=== PATIENT | female | born 1995 | race African-American/Black ===

== ENCOUNTER 2020-05-24 10:48 | Emergency (ER) | payer OTHER, SELFPAY ==
--- NOTE | 2020-05-24 11:01 | ED.URI ---
HPI - URI/Sore Throat General Chief Complaint: Upper Respiratory Infection Stated Complaint: Ear sore throat Time Seen by Provider: 05/24/20 11:01 Source: patient and RN notes reviewed History of Present Illness HPI Narrative: Patient is a 25-year-old female who presents the urgent care with complaints of sore throat and ear pain. Patient states the ear pain started last week, resolved, and then returned a few days ago, worse on the right side. Patient states that the sore throat is mainly on the right side and she noticed white spots . Patient states that she was originally taking Mucinex for a post Covid cough. Patient states that she had Covid and was off of quarantine on the . Patient states that she does have a history of asthma but most of her symptoms were fairly mild. Patient currently denies of any known fever, chills, nausea, vomiting. States that she has had mild postnasal drip. No other acute complaints. No acute distress noted. Patient aware of the plan of care. Some parts of this dictation were generated by voice recognition software and may contain typographical and/or grammatical inaccuracies. Related Data Home Medications Medication Instructions Recorded Confirmed hydroxyzine HCl PO TID PRN 05/24/20 Allergies Allergy/AdvReac Type Severity Reaction Status Date / Time Mena Allergy Unknown Unknown Uncoded 05/24/20 11:12 Review of Systems Review of Systems: Narrative: CONSTITUTIONAL: Denies fever, chills, or sweats. EYES: Denies visual changes, redness, or discharge. ENT: Reports of bilateral otalgia and sore throat, postnasal drainage CARDIOVASCULAR: Denies chest pain, palpitations, or edema. RESPIRATORY: Denies cough or dyspnea. GASTROINTESTINAL: Denies abdominal pain, nausea, vomiting, or diarrhea. GENITOURINARY: Denies dysuria or hematuria. SKIN: Denies rash or itching. MUSCULOSKELETAL: Denies back pain, joint pain, or myalgia. NEUROLOGIC: Denies headache, numbness, or weakness. All other systems reviewed are negative, except as documented in HPI. [facility] Social History Social History Smoking packs per day: 1.5 Smoking cigarettes per day: 30.0 Comments At the time of my signature, I reviewed and agree with the nursing past medical, surgical, social, and family history. There is no relevant family history pertinent to the patient complaint. Exam Narrative: Exam Narrative: GENERAL: This is a well-nourished, well-developed patient, in no apparent distress. HEAD: normocephalic, atraumatic. EYES: PERRL. Sclera clear/white. Vision is grossly intact. EARS: External ears normal, auditory canals clear and without drainage, TMs normal without perforation. Hearing grossly intact. NOSE: External nose normal with no obvious nasal discharge, nares without redness, no rhinorrhea. THROAT: Mucous membranes moist, mild erythema noted to posterior oropharynx with pinpoint canker sore noted to the uvula. No obvious exudate. Mild postnasal drainage. NECK: Neck supple, mild tender bilateral submandibular lymphadenopathy CARDIOVASCULAR: Regular rate and rhythm without murmurs, gallops, or rubs. RESPIRATORY: Clear to auscultation. Breath sounds equal bilaterally. No wheezes, rales, or rhonchi. SKIN: warm, intact with no suspicious lesions or rash, good texture and turgor. NEURO: awake, alert, and oriented to person, place and time. There were no obvious focal neurologic abnormalities. EXTREMITIES: No clubbing, cyanosis, or edema. Course Vital Signs Vital signs: Vital Signs Temperature 99.9 F H 05/24/20 11:04 Pulse Rate 95 05/24/20 11:04 Respiratory Rate 18 05/24/20 11:04 Blood Pressure 129/72 05/24/20 11:04 Pulse Oximetry 100 05/24/20 11:04 Temperature 99.9 F H 05/24/20 11:04 Pulse Rate 95 05/24/20 11:04 Respiratory Rate 18 05/24/20 11:04 Blood Pressure 129/72 05/24/20 11:04 Pulse Oximetry 100 05/24/20 11:04 Re
[2020-05-24 11:04] VITALS: BP 129/72; PULSE 95; RESP 18; TEMP 37.7; O2SAT 100
[2020-05-24 11:14] VITALS: BP 129/72; PULSE 95; RESP 18; TEMP 37.7; O2SAT 100
== END 2020-05-24 11:26 | disposition home or self-care (01) ==
PROVIDERS: Emergency Provider Nurse Practitioner Family; PCP Nurse Practitioner Family
DX: J02.9 Acute pharyngitis, unspecified (principal); H92.03 Otalgia, bilateral; E28.2 Polycystic ovarian syndrome
CPT/HCPCS: 87081; 87880; 99213; G0463

== ENCOUNTER 2022-01-13 21:49 | Emergency (ER) | payer OTHER, SELFPAY ==
--- NOTE | ~2022-01-13 | XR_ITS ---
EXAMINATION: XR chest 1V portable DATE: 01/14/2022 02:25 INDICATION: Midsternal chest pain. TECHNIQUE: A single frontal view of the chest was obtained. COMPARISON: None. FINDINGS: The lung volumes are small. No pneumonia, pleural effusion, pneumothorax. The heart size is normal. Calcified right hilar and mediastinal lymph nodes are consistent with old granulomatous dise ase. IMPRESSION: 1. No acute cardiopulmonary disease. Reviewed, dictated and finalized at location A.
[2022-01-13 22:33] VITALS: BP 139/85; PULSE 93; RESP 18; TEMP 36.8; O2SAT 100
[2022-01-13 22:37] LABS: Glucose Point of Care > 500 mg/dl (65-105)
[2022-01-13 22:48] LABS: Fractional Inspired Oxygen 21 %; PO2 VBG 40.4 mmHg (35.0-45.0); pH VBG 7.388 (7.300-7.400)
[2022-01-13 22:49] LABS: Device ROOM AIR
[2022-01-13 23:03] LABS: Basophils Absolute Auto 0.1 K/mm3 (0.0-0.1); Basophils Percent Auto 0.5 % (0.2-1.2); Eosinophils Absolute Auto 0.8 K/mm3 (0-0.3); Eosinophils Percent Auto 7.1 % (0-4.4); Hematocrit 41.4 % (37.0-47.0); Hemoglobin 14.5 g/dL (12.0-15.0); Immature Granulocyte Absolute 0.02 K/mm3 (0.00-0.031); Immature Granulocyte Percent A 0.2 % (0-0.5); Lymphocytes Absolute Auto 3.91 K/mm3 (0.9-3.2); Lymphocytes Percent Auto 35.8 % (18.3-44.2); Mean Corpuscular Volume 88.7 fl (80-100); Mean Platelet Volume 12.9 fl (7.4-10.4); Monocytes Absolute Auto 0.5 K/mm3 (0.1-0.6); Monocytes Percent Auto 4.8 % (2.6-8.5); Neutrophils Absolute Auto 5.6 K/mm3 (1.3-6.7); Neutrophils Percent Auto 51.6 % (45.5-73.1); Platelet Count Result 205 k/mm3 (150-375); Red Blood Count 4.67 M/mm3 (4.2-5.4); Red Cell Distribution Width 11.7 % (11.5-14.5); White Blood Count 10.9 K/mm3 (4.5-10.0)
[2022-01-13 23:16] LABS: Appearance Urine Clear (Clear); Bilirubin Urine Negative (Negative); Blood Urine Negative (Negative); Glucose Urine UA 3+ mg/dL (Negative); Ketones Urine Negative (Negative); Leukocyte Esterase Ur Negative LEU/UL (Negative); Nitrate Urine Negative (Negative); Protein Urine Negative (Negative); Specific Grav Ur <= 1.005 (1.001-1.035); Urobilinogen Urine 0.2 mg/dL (<2.0)
[2022-01-13 23:20] LABS: Beta-Hydroxybutyrate/Acetoacetate 0.11 mmol/L (0.02-0.27)
[2022-01-13 23:22] LABS: Add Urine Microscopic? YES; Color Urine Light Yellow (Yellow)
[2022-01-13 23:23] LABS: Alanine Aminotransferase 124 U/L (6-35); Albumin Level 4.8 g/dL (3.5-5.1); Alkaline Phosphatase 157 U/L (38-126); Anion Gap 16 mmol/L (8-16); Aspartate Amino Transferase 94 U/L (14-36); Bilirubin,Total 0.5 mg/dL (0.2-1.3); Blood Urea Nitrogen 10 mg/dL (7-17); Carbon Dioxide 24 mmol/L (22-30); Chloride 89 mmol/L (98-107); Estimated CRCL calculation 92 ml/min; Estimated Glomerular Filt Rate > 60; Glucose 768 mg/dL (65-110); Magnesium 2.1 mg/dL (1.6-2.3); Sodium 129 mmol/L (137-145)
[2022-01-13 23:28] LABS: Bacteria Urine Trace /hpf; Mucus Urine Rare /lpf; Squamous Epithelial Cell Urine Few /hpf (Few); WBC Urine 0-3 /hpf
[2022-01-14 00:33] VITALS: BP 137/96; PULSE 84; RESP 20; O2SAT 99
[2022-01-14 00:34] VITALS: BP 137/96; PULSE 85; RESP 15; O2SAT 98
[2022-01-14] MEDS: SODIUM CHLORIDE 0.9% IV 2,000 ML 2000 ML IV CONT (00:45)
--- NOTE | 2022-01-14 02:03 | ECG_ITS ---
Measurements Intervals [place] Rate: 66 P: 34 AR: 213 QRS: 9 QRSD: 95 T: 26 QT: 415 QTc: 438 Interpretive Statements SINUS RHYTHM WITH FIRST DEGREE AV BLOCK DELAYED PRECORDIAL R/S TRANSITION CONSIDER INFERIOR INFARCT, AGE INDETERMINATE ABNORMAL ECG NO PREVIOUS ECG AVAILABLE FOR COMPARISON Electronically Signed On 01-14-2022 6:51:10 CDT by Oj Brock D.O.
[2022-01-14 03:07] LABS: SARS-CoV-2 RNA PCR Negative
[2022-01-14 03:22] LABS: Glucose Point of Care 390 mg/dl (65-105)
[2022-01-14] MEDS: IBUPROFEN 400 MG TABLET 800 MG PO (03:22)
[2022-01-14] MEDS: ACETAMINOPHEN 500 MG TABLET 1000 MG PO (03:22)
--- NOTE | 2022-01-14 03:39 | ED.GENADULT ---
HPI - General Adult General Chief complaint: Recheck/Abnormal Lab/Rx Stated complaint: sugar >600 Time Seen by Provider: 01/14/22 00:36 History of Present Illness HPI narrative: This is a 26-year-old female with a history of type 2 diabetes presenting to the ED for elevated blood sugars. The patient says that she woke up this morning with headache, fatigue, muscle aches and generally feeling unwell. She slept for most of the day. She did check her sugar at night and it was elevated and she was concerned that was why she was feeling unwell so came to the emergency department for evaluation. The patient denies nausea vomiting or abdominal pain. She has never been in a diabetic emergency before. She does note that she has been urinating more than usual. The patient was diagnosed with diabetes 1 year ago. Her blood sugars have been relatively well controlled. She did have a recent change to her medication regimen and which is currently metformin 1000 mg b.i.d., Jardiance q.d. and 15 mg of long-acting insulin at night. Related Data Home Medications Medication Instructions Recorded Confirmed hydroxyzine HCl 25 mg tablet PO TID PRN Anxiety 05/24/20 Allergies Allergy/AdvReac Type Severity Reaction Status Date / Time Mena Allergy Unknown Unknown Uncoded 05/24/20 11:12 Review of Systems Review of Systems: CONSTITUTIONAL: Denies night sweats. EYES: No eye pain ENT: Denies rhinorrhea CARDIOVASCULAR: Denies palpitations RESPIRATORY: Denies hemoptysis GASTROINTESTINAL: Denies hematemesis GENITOURINARY: Denies hematuria. SKIN: Denies rash MUSCULOSKELETAL: Denies myalgia. NEUROLOGIC: Denies weakness. PSYCHIATRIC: Denies delusions [facility] Past Medical History Medical History Diabetes Social History Social History Smoking packs per day: 1.5 Smoking cigarettes per day: 30.0 Exam Narrative: APPEARANCE: No apparent distress. Patient is polite and pleasant during the interview Head atraumatic. EYES: PERRLA/EOMI, NOSE: Normal no drainage NECK: Supple, Trachea midline RESPIRATORY: CTAB, No increased work of breathing. CARDIOVASCULAR: S1S2 appreciated ABDOMINAL: Soft, nontender, nondistended, MUSCULOSKELETAl: No obvious deformities NEURO: Alert. Moving 4/4 extremities SKIN:: Warm, dry. Normal color PSYCHIATRIC: Normal affect Course Vital Signs Vital signs: Vital Signs Temperature 98.2 F 01/13/22 22:33 Pulse Rate 93 01/13/22 22:33 Respiratory Rate 18 01/13/22 22:33 Blood Pressure 139/85 01/13/22 22:33 Pulse Oximetry 100 01/13/22 22:33 Temperature 98.2 F 01/13/22 22:33 Pulse Rate 85 01/14/22 00:34 Respiratory Rate 15 01/14/22 00:34 Blood Pressure 137/96 H 01/14/22 00:34 Pulse Oximetry 98 01/14/22 00:34 Medical Decision Making MDM Narrative Medical decision making narrative: This is a 26-year-old female presenting to ED for elevated blood sugars. The patient believes that her elevated blood sugars are why she does not feel well and appears more likely she has a viral syndrome That has caused an elevation in her shoe blood sugars. Laboratory workup revealed hyponatremia and hypochloremia which are consistent from dehydration most likely due to osmotic diuresis. There is no anion gap or metabolic acidosis indicating DKA or HHS. The patient's VBG revealed a pH of 7.38. White blood cell count slightly elevated at 10.9. urinalysis did not indicate infection. Chest x-ray as interpreted by myself is negative for any acute cardiopulmonary process. EKG interpretation: Rhythm [sinus], Rate 66, [place] -[normal], [place] -[normal], QRS [narrow], QTC [normal], T waves -[negative for concerning inversions], ST Segments - [Negative for concerning elevations] Final interpretations: [Normal Sinus Rhythm] Upon re-evaluation the patient feels better. She is requ
[2022-01-14 04:20] VITALS: BP 117/74; PULSE 62; RESP 18; O2SAT 99
== END 2022-01-14 04:20 | disposition home or self-care (01) ==
PROVIDERS: Emergency Provider Emergency Medicine; PCP Nurse Practitioner Family
DX: B34.9 Viral infection, unspecified (principal); E11.65 Type 2 diabetes mellitus with hyperglycemia; Z20.822 Contact with and (suspected) exposure to COVID-19; F17.210 Nicotine dependence, cigarettes, uncomplicated; Z79.4 Long term (current) use of insulin; Z79.84 Long term (current) use of oral hypoglycemic drugs; I44.0 Atrioventricular block, first degree; R94.31 Abnormal electrocardiogram [ECG] [EKG]
CPT/HCPCS: 36415; 71045; 80053; 81001; 82010; 82803; 82948; 83735; 84100; 85025; 93005; 96360; 99283; A9270; C9803; J7030; U0003; U0005

== ENCOUNTER 2023-01-15 10:25 | Emergency (ER) | payer OTHER, SELFPAY ==
[2023-01-15 10:27] VITALS: BP 146/102; PULSE 85; RESP 18; TEMP 36.6; O2SAT 100
[2023-01-15 11:12] LABS: Glucose Point of Care 143 mg/dl (65-105)
[2023-01-15 11:19] LABS: Basophils Absolute Auto 0.1 K/mm3 (0.0-0.1); Basophils Percent Auto 0.6 % (0.2-1.2); Eosinophils Absolute Auto 0.2 K/mm3 (0-0.3); Hemoglobin 14.7 g/dL (12.0-15.0); Immature Granulocyte Absolute 0.02 K/mm3 (0.00-0.031); Immature Granulocyte Percent A 0.2 % (0-0.5); Lymphocytes Absolute Auto 3.05 K/mm3 (0.9-3.2); Lymphocytes Percent Auto 36.7 % (18.3-44.2); Mean Corpuscular Hemoglobin 31.7 pg (26-34); Mean Corpuscular Volume 90.5 fl (80-100); Mean Platelet Volume 11.8 fl (7.4-10.4); Monocytes Absolute Auto 0.4 K/mm3 (0.1-0.6); Monocytes Percent Auto 4.6 % (2.6-8.5); Neutrophils Absolute Auto 4.6 K/mm3 (1.3-6.7); Neutrophils Percent Auto 55.9 % (45.5-73.1); Platelet Count Result 263 k/mm3 (150-375); Red Blood Count 4.64 M/mm3 (4.2-5.4); Red Cell Distribution Width 11.4 % (11.5-14.5); White Blood Count 8.3 K/mm3 (4.5-10.0)
[2023-01-15 11:25] LABS: Appearance Urine Cloudy (Clear); Bacteria Urine 1+ /hpf; Bilirubin Urine Negative (Negative); Blood Urine Negative (Negative); Color Urine Yellow (Yellow); Glucose Urine UA Negative (Negative); Ketones Urine Trace mg/dL (Negative); Leukocyte Esterase Ur Trace LEU/UL (Negative); Nitrate Urine Negative (Negative); Non Pathogenic Casts 0-2; Protein Urine Trace mg/dL (Negative); RBC Urine 0-2 /hpf (0-2); Specific Grav Ur 1.021 (1.001-1.035); Squamous Epithelial Cell Urine Many /hpf (Few)
[2023-01-15 11:27] LABS: Add Urine Microscopic? YES
[2023-01-15 11:29] LABS: Alanine Aminotransferase 97 U/L (6-35); Albumin Level 4.8 g/dL (3.5-5.1); Alkaline Phosphatase 75 U/L (38-126); Anion Gap 8 mmol/L (8-16); Aspartate Amino Transferase 50 U/L (14-36); Bilirubin,Total 0.8 mg/dL (0.2-1.3); Blood Urea Nitrogen 11 mg/dL (7-17); Calcium 9.4 mg/dL (8.4-10.2); Carbon Dioxide 27 mmol/L (22-30); Chloride 106 mmol/L (98-107); Estimated CRCL calculation 92 ml/min; Estimated Glomerular Filt Rate > 60; Glucose 154 mg/dL (65-110); Potassium 3.9 mmol/L (3.4-5.0); Sodium 141 mmol/L (137-145)
[2023-01-15 11:31] LABS: Acetaminophen < 10 ug/mL (10-30); Ethanol < 10 mg/dL (<10); Salicylate < 1.0 mg/dL (2-20)
--- NOTE | 2023-01-15 11:35 | PC.NURSE ---
Patient to the ED with thought of depression, anxiety and SI. Patient has history of anxiety and depression and states she has been out of her medication for 4 months due to moving. Patient is going through a divorce at this time. patient states she has a plan to harm herself by taking all of my medications . Per patient, her last attempt of self harm was a week ago, but family states patient attempted today.
[2023-01-15 11:38] LABS: Amphetamine Screen Urine Negative (Negative); Barbiturate Screen Urine Negative (Negative); Benzodiazepines Screen Urine Negative (Negative); Cannabinoid Screen Urine Negative (Negative); Cocaine Screen Urine Negative (Negative); Methadone Screen Urine Negative (Negative); Opiate Screen Urine Negative (Negative); Phencyclidine Screen Urine Negative (Negative)
--- NOTE | 2023-01-15 11:50 | ED.PSYCH ---
HPI - Psych General Chief Complaint: Psychiatric Symptoms <Keturah Rodriguez PA-C - Last Filed: 01/15/23 18:10> Stated Complaint: SI, depression, anxiety <CONCETTA Salinas Last Filed: 01/15/23 18:10> Time Seen by Provider: 01/15/23 10:52 <CONCETTA Salinas Last Filed: 01/15/23 18:10> Source: patient <CONCETTA Salinas Last Filed: 01/15/23 18:10> Mode of arrival: ambulatory <CONCETTA Salinas Last Filed: 01/15/23 18:10> Limitations: no limitations <CONCETTA Salinas Last Filed: 01/15/23 18:10> History of Present Illness HPI Narrative: Patient is a 27-year-old female who presents to the ED with report of depression and suicidal ideation. Patient reports she recently from her and moved back to [place] from [place] to live with her mom. She states she recently found out he had been cheating on her. She has been having a hard time dealing with things and reports having increased anxiety and depression. She has previously been on medication for these, but has not been taking them of the last 4 to 5 months. She previously was established with [facility] psychiatric services, but does not currently see anyone there. She has been having suicidal ideation every day. Recently this has been worse. She has had thoughts on how she would do so, reporting that today she thought about driving her car at a high speed and crashing into something without wearing her seatbelt. She also reports yesterday she saw her mom using a kitchen knife and thought about slitting her throat or slitting her wrist. She has also thought about taking medications for an overdose. Patient has not attempted any of these things or previously attempted suicide in the past. Denies any homicidal ideation. Denies AVH. Patient also mention she has not been taking her metformin or insulin for the last 4 to 5 months. She does not check her sugars. <CONCETTA Salinas Last Filed: 01/15/23 18:10> Related Data Home Medications: Home Medications Medication Instructions Recorded Confirmed hydroxyzine HCl 25 mg tablet PO TID PRN Anxiety 05/24/20 <Keturah Rodriguez PA-C - Last Filed: 01/15/23 18:10> Allergies/Adverse Reactions: Allergies Allergy/AdvReac Type Severity Reaction Status Date / Time Mena Allergy Unknown Unknown Uncoded 01/15/23 14:06 <Keturah Rodriguez PA-C - Last Filed: 01/15/23 18:10> Review of Systems Review of Systems: CONSTITUTIONAL: Denies fever, chills, or sweats. CARDIOVASCULAR: Denies chest pain. RESPIRATORY: Denies dyspnea. GASTROINTESTINAL: Denies abdominal pain, nausea, vomiting. MUSCULOSKELETAL: Denies back pain, joint pain, or myalgia. NEUROLOGIC: Denies headache, numbness, or weakness. PSYCHIATRIC: See HPI. <Keturah Rodriguez PA-C - Last Filed: 01/15/23 18:10> All systems reviewed & are unremarkable except as noted in HPI and below <Keturah Rodriguez PA-C - Last Filed: 01/15/23 18:10> [facility] Past Medical History Medical History: Medical History (Updated 01/15/23 @ 18:10 by Keturah Rodriguez PA-C) Anxiety Depression Diabetes PTSD (post-traumatic stress disorder) <Keturah Rodriguez PA-C - Last Filed: 01/15/23 18:10> Social History Social History: Social History Smoking packs per day: 1.5 Smoking cigarettes per day: 30.0 Substance use type: does not use <Keturah Rodriguez PA-C - Last Filed: 01/15/23 18:10> Exam Narrative: GENERAL: Somewhat anxious appearing, obese with BMI of 32.5, non-toxic, in no acute distress. HEAD: Normocephalic, atraumatic. NECK: Supple. No adenopathy, no masses. RESPIRATORY: Airway patent, respirations nonlabored. Clear to auscultation bilaterally, no rales, rhonchi, wheezing. CARDIOVASCULAR: Regular rate and rhythm without murmurs, rubs, or gallops.
[2023-01-15 11:54] LABS: Influenza A QL RT-PCR Negative (Negative); Influenza B QL RT-PCR Negative (Negative); SARS-CoV-2 RNA PCR Negative (Negative)
[2023-01-15 12:06] LABS: Thyroid Stimulating Hormone 0.527 uIU/mL (0.465-4.680)
[2023-01-15 12:42] LABS: Hemoglobin A1C 8.1 % (<5.7)
[2023-01-15 13:44] LABS: Pregnancy On Board Control Positive; Urine Pregnancy Test Negative
[2023-01-15 14:08] VITALS: BP 103/58
[2023-01-15] MEDS: ACETAMINOPHEN 325 MG TABLET 650 MG PO (15:34)
[2023-01-15] MEDS: NICOTINE (*PBKC) 21 MG PATCH 1 PATCH TRANSDERM (15:34)
[2023-01-15 18:17] VITALS: BP 143/69; PULSE 85; RESP 18; O2SAT 100
[2023-01-15] MEDS: metFORMIN HCL 500 MG TABLET PO (18:59)
[2023-01-16 04:06] LABS: Glucose Point of Care 221 mg/dl (65-105)
== END 2023-01-15 19:25 ==
PROVIDERS: Emergency Provider Physician Assistant; PCP Nurse Practitioner Family
DX: F32.A Depression, unspecified (principal); R45.851 Suicidal ideations; E11.65 Type 2 diabetes mellitus with hyperglycemia; T38.3X6A Underdosing of insulin and oral hypoglycemic [antidiabetic] drugs, initial encounter; T43.506A Underdosing of unspecified antipsychotics and neuroleptics, initial encounter; Z91.138 Patient's unintentional underdosing of medication regimen for other reason; Z20.822 Contact with and (suspected) exposure to COVID-19; F41.9 Anxiety disorder, unspecified; F43.10 Post-traumatic stress disorder, unspecified; F17.210 Nicotine dependence, cigarettes, uncomplicated
CPT/HCPCS: 36415; 80053; 80307; 81001; 81025; 82948; 83036; 84443; 85025; 87086; 87088; 87636; 99285; A9270

== ENCOUNTER 2023-01-30 12:46 | Emergency (ER) | payer OTHER, SELFPAY ==
[2023-01-30 12:50] VITALS: BP 131/81; PULSE 108; RESP 14; TEMP 36.5; O2SAT 98
[2023-01-30 13:02] VITALS: BP 131/81; PULSE 108; RESP 14; TEMP 36.5; O2SAT 98
--- NOTE | 2023-01-30 13:09 | ED.URI ---
HPI - URI/Sore Throat General Chief Complaint: Upper Respiratory Infection Stated Complaint: Sore Throat Source: patient and RN notes reviewed History of Present Illness HPI Narrative: 27 yo F presents to urgent care with complaints of sore throat that started this morning. Pt denies any fevers, chills, congestion, YEPEZ, N/V/D, chest pain, SOB, or cough. Pt has not had any pain medicine today for her symptoms. Related Data Home Medications Medication Instructions Recorded Confirmed duloxetine 30 mg capsule,delayed 30 mg PO DAILY 01/30/23 01/30/23 release insulin glargine 100 unit/mL 20 unit subcut DAILY 01/30/23 01/30/23 subcutaneous solution (Lantus U-100 Insulin) insulin lispro 100 unit/mL 8 unit subcut TID 01/30/23 01/30/23 subcutaneous solution (Humalog U-100 Insulin) mirtazapine 15 mg tablet 15 mg PO DAILY 01/30/23 01/30/23 Allergies Allergy/AdvReac Type Severity Reaction Status Date / Time Mena Allergy Unknown Unknown Uncoded 01/30/23 13:00 Review of Systems Review of Systems: Pertinent positives and pertinent negatives per HPI. [facility] Past Medical History Medical History (Updated 01/30/23 @ 13:14 by Елена Galindo APRN) Anxiety Depression Diabetes PTSD (post-traumatic stress disorder) Social History Social History Smoking packs per day: 1.5 Smoking cigarettes per day: 30.0 Substance use type: does not use Comments At the time of my signature, I reviewed and agree with the nursing past medical, surgical, social, and family history. There is no relevant family history pertinent to the patient complaint. Exam Narrative: GENERAL: This is a well-nourished, well-developed patient, in no apparent distress. HEAD: normocephalic, atraumatic. EYES: Sclera clear/white. Vision is grossly intact. EARS: External ears normal, auditory canals clear and without drainage, TMs normal without perforation. Hearing grossly intact. NOSE: External nose normal with no obvious nasal discharge, nares without redness, no rhinorrhea. THROAT: Mucous membranes moist, posterior pharynx clear. Bilateral tonsils 2+, erythremic, with white exudate. NECK: Neck supple, non-tender without lymphadenopathy, masses or thyromegaly. CARDIOVASCULAR: Regular rate and rhythm without murmurs, gallops, or rubs. RESPIRATORY: Clear to auscultation. Breath sounds equal bilaterally. No wheezes, rales, or rhonchi. GASTROINTESTINAL: Abdomen soft, non-tender, nondistended. Bowel sounds are active. No hepato-splenomegaly, or palpable masses. No guarding. SKIN: warm, intact with no suspicious lesions or rash, good texture and turgor. NEURO: awake, alert, and oriented to person, place and time. There were no obvious focal neurologic abnormalities. EXTREMITIES: No clubbing, cyanosis, or edema. No joint tenderness, effusion, or edema noted. BACK: Nontender without deformity or crepitus. No flank tenderness. Course Course Level of Care: Express Care Visit Vital Signs Vital signs: Vital Signs Temperature 97.7 F 01/30/23 12:50 Pulse Rate 108 H 01/30/23 12:50 Respiratory Rate 14 01/30/23 12:50 Blood Pressure 131/81 01/30/23 12:50 Pulse Oximetry 98 01/30/23 12:50 Oxygen Delivery Room Air 01/30/23 12:50 Temperature 97.7 F 01/30/23 13:02 Pulse Rate 108 H 01/30/23 13:02 Respiratory Rate 14 01/30/23 13:02 Blood Pressure 131/81 01/30/23 13:02 Pulse Oximetry 98 01/30/23 13:02 Oxygen Delivery Room Air 01/30/23 13:02 Reviewed MDM - URI/Sore Throat MDM Narrative Medical decision making narrative: Rapid strep is negative in the office; however we will send to the lab for confirmation; there is a small percentage chance that it can come back positive; if it is, we will call you in 2-3days; and your prescription will be call in to your pharmacy. However, there is NO indication for antibiotic at this time. -Increase your fluids an
== END 2023-01-30 13:15 | disposition home or self-care (01) ==
PROVIDERS: Emergency Provider Nurse Practitioner Family; PCP Nurse Practitioner Family
DX: J03.90 Acute tonsillitis, unspecified (principal); F41.8 Other specified anxiety disorders; E11.9 Type 2 diabetes mellitus without complications; Z79.4 Long term (current) use of insulin
CPT/HCPCS: 87081; 87880; 99213; G0463

== ENCOUNTER 2024-04-10 08:54 | Emergency (ER) | payer OTHER, SELFPAY ==
[2024-04-10 09:03] VITALS: BP 127/79; PULSE 92; RESP 17; TEMP 36.5; O2SAT 100
--- NOTE | 2024-04-10 09:09 | ED.URI ---
HPI - URI/Sore Throat General Stated Complaint: throat/ear pain History of Present Illness HPI Narrative: Patient presents with sore throat no trouble swallowing no drooling slight fever and bilateral ear pain. Pain gin she denies any cough no shortness of breath no chest pain has not taking thing [id number] for her symptoms. Related Data Home Medications ?Medication ?Instructions ?Recorded ?Confirmed ?Last Taken ?Type duloxetine 30 mg capsule,delayed 30 mg PO DAILY 01/30/23 01/30/23 Unknown History release insulin glargine 100 unit/mL 20 unit subcut DAILY 01/30/23 01/30/23 Unknown History subcutaneous solution (Lantus U-100 Insulin) insulin lispro 100 unit/mL 8 unit subcut TID 01/30/23 01/30/23 Unknown History subcutaneous solution (Humalog U-100 Insulin) mirtazapine 15 mg tablet 15 mg PO DAILY 01/30/23 01/30/23 Unknown History Allergies Allergy/AdvReac Type Severity Reaction Status Date / Time Mena Allergy Unknown Unknown Uncoded 01/30/23 13:00 Review of Systems Review of Systems: CONSTITUTIONAL: Denies chills, or sweats. Reports fever and generalized body aches EYES: Denies visual changes, redness, or discharge. ENT: Denies otalgia. Reports nasal congestion runny nose and sore throat CARDIOVASCULAR: Denies chest pain, palpitations, or edema. RESPIRATORY: Denies dyspnea. Reports occasional cough GASTROINTESTINAL: Denies abdominal pain, nausea, vomiting, or diarrhea. GENITOURINARY: Denies dysuria or hematuria. SKIN: Denies rash or itching. MUSCULOSKELETAL: Denies back pain, joint pain, or myalgia. Reports generalized body aches NEUROLOGIC: Denies headache, numbness, or weakness. PSYCHIATRIC: Denies anxiety or depression. [facility] Past Medical History Medical History (Updated 04/10/24 @ 09:29 by AURELIO Elizabeth) PTSD (post-traumatic stress disorder) Anxiety Depression Diabetes Social History Social History Smoking packs per day: 1.5 Smoking cigarettes per day: 30.0 Substance use type: does not use Comments At time of signature, agree with nursing past medical, surgical, social and family history. There is no relevant family history pertinent to the presenting complaint Exam Narrative: The patient is a well-developed, well-nourished in no acute distress. SKIN: Skin is warm and dry without erythema, swelling or exudate. There is good turgor. No tenting. HEAD: Atraumatic. Normocephalic. No temporal or scalp tenderness. EYES: Moist and bright. Sclera and conjunctivae normal. No discharge. PERRLA. Extraocular motions intact. Gross visual acuity intact. EARS: Pinna is normal shape and contour. Moderate erythema to right ear canal mild erythema to right ear canal both TMs cloudy NOSE: pink, moist mucosa with good air movement. Clear rhinorrhea without nasal flaring. Septum midline. Mouth: moist mucous membranes. THROAT; mild erythema noted to posterior oropharynx with moderate postnasal drainage. Without exudate or ulceration.. Uvula midline. Normal movement of soft palate. NECK: Supple and nontender with full range of motion without discomfort. No meningeal signs. LUNGS: Equal and bilateral breath sounds without wheezes, rales or rhonchi. CHEST: The chest wall is without retractions or use of accessory muscles. HEART: Has a regular rate and rhythm without murmur, gallops, click or rub. ABDOMEN: Soft, nontender with positive active bowel sounds. No rebound tenderness. EXTREMITIES: Without cyanosis, clubbing or edema. Equal 2+ distal pulses and 2 second capillary refill noted. NEUROLOGIC: alert, active, . The patient moves all extremities with normal muscle strength. Normal muscle tone is noted. Normal coordination is noted. NO focal neurological findings noted. Course Course Level of Care: Express Care Visit Vital Signs Vital signs: Vital Signs Oxygen Delivery Room Air 04/10/24 09:03 Oxygen Delivery Room Air 04/10/24 09:03 Discharge Plan Discharge Clinical Impression: Pharyngitis, Otitis media Patient Disposition: Home, Self-Care Condition: Stable Instructions: Antibiotic Form Additional Instructions: Take medication as prescribed until gone. Your strep test was negative in the office today we will do a backup throat culture notify you if it is positive but you will be placed on antibiotic that will cover strep if your strep test is positive. Increase fluids and rest Change toothbrush in 48 hours If any new or worsening symptoms please go to ER immediately further evaluation treatment Patient Language: Croatian Prescriptions: New amoxicillin 875 mg tablet 875 mg PO Q12H 10 Days Qty: 20 0RF dexamethasone 4 mg tablet 8 mg PO ONCE Qty: 2 0RF loratadine [Claritin] 10 mg tablet 10 mg PO DAILY 14 Days Qty: 14 0RF No Action insulin glargine [Lantus U-100 Insulin] 100 unit/mL Solution 20 unit SUBCUT DAILY mirtazapine 15 mg Tablet 15 mg PO DAILY insulin lispro [Humalog U-100 Insulin] 100 unit/mL Solution 8 unit SUBCUT TID duloxetine 30 mg Capsule,Delayed Release(Dr/Ec) 30 mg PO DAILY metformin 500 mg tablet 500 mg PO BID Qty: 60 0RF Follow-up/Referrals: Navarro,Jessica Steward APN [Primary Care Provider] - Stand Alone Forms: Work/School Release IP
[2024-04-10 09:21] LABS: EDSTREPNEGPOS1 Negative (Negative)
--- OUTSIDE RECORDS SUMMARY | 2024-04-14 18:28 | XMS_ITS | Encounter Summary ---
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 Name Role Phone Jessica Navarro APRN, CNP Primary Care Provider [phone] Jessica Navarro APRN, CNP Unavailable [phone] Encounter Details Date Type Department Care Team (Latest Contact Info) Description 11/21/2022 Travel Social History Tobacco Use Types Packs/Day Years Used Date Smoking Tobacco: Former Cigarettes Q uit: 09/13/2020 Smokeless Tobacco: Never Alcohol Use Standard Drinks/Week Comments No 0 (1 standard drink = 0.6 oz pur e alcohol) Comments No Sex and Gender Information Value Date Recorded Sex Assigned at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 Legal Sex Female 11:35 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 No / Unsure 11/21/2022 11:17 PM CDT documented as of this encounter Plan of Treatment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 documented as of this encounter Visit Diagnoses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documented in this encounter Care Teams Launching Pad Mechanic Relationship Specialty Start Date End Date Jessica Navarro APRN, CNP [address] [place] [address] PCP - General Family Medicine 01/16/18 Jessica Navarro APRN, CNP [address] [place] [address] Family Medicine 01/16/18 documented as of this encounter
--- OUTSIDE RECORDS SUMMARY | 2024-04-14 18:28 | XMS_ITS | Clinical Summary ---
Author Organization [facility] Address [address] [place] [address] Phone Care Team Providers Care Senior Consultant Name Role Phone Jessica Navarro APRN, CNP Primary Care Provider [phone] Jessica Navarro APRN, CNP Unavailable [phone] Allergies Active Allergy Reactions Criticality Noted Date Comments Mena Shortness of Breath High Medications albuterol (PROVENTIL HFA, VENTOLIN HFA) 108 (90 BASE) MCG/ACT Aerosol Solution take 2 Puffs by inhalation every 6 hours as needed for Wheezing. 1 Inhaler 0 05/19/19 17 Active ondansetron (ZOFRAN-ODT) 4 MG TABLET DISPERSIBLE Take 1 Tab by mouth every 6 hours as needed for Nausea - 1st line. 5 Tab 10/09/19 19 Active Additional Information Patient not taking.Reported on 02/13/2021 HYDROcodone-melia taminophen (NORCO) 5-325 MG Tablet Take 2 Tabs by mouth. 09/29/19 19 Active fluticasone (FLONASE) 50 MCG/ACT Suspension fluticasone propionate 50 mcg/actuation nasal spray,suspension Active cyclobenzaprine (FLEXERIL) 10 MG Tablet Take 10 mg by mouth. 12/31/19 18 Active ergocalciferol (VITAMIN D) 19640 UNIT Capsule ergocalciferol (vitamin D2) 50,000 unit capsule 07/24/19 19 Active MV-Min-Fe Fum-FA-DHA ( 1) 30-0.975-200 MG Capsule 28 mg iron-800 mcg tablet Active escitalopram (LEXAPRO) 10 MG Tablet Take 10 mg by mouth daily. Active gabapentin (NEURONTIN) 300 MG Capsule Take 2 Capsules by mouth nightly. 05/14/19 Active zolpidem (AMBIEN) 5 MG TabletIndicatio ns:Primary insomnia Take 1 Tablet by mouth nightly as needed for Sleep. 30 Tablet 05/15/19 Active metFORMIN (GLUCOPHAGE) 500 MG Tablet Take 1 Tablet by mouth 2 times daily (with meals). 180 Tablet 11/23/19 Active insulin lispro (HumaLOG) 100 UNIT/ML Solution Use as directed 10 mL 11/23/19 Active Active Problems Problem Noted Date Diagnosed Date ELLI (obstructive sleep apnea) 03/01/2019 Non morbid obesity 03/01/2019 Tobacco use disorder 03/01/2019 SOB (shortness of breath) 03/01/2019 Immunizations Immunization Administration Dates Next Due TDAP Vaccine 01/16/2018 Social History Tobacco Use Types Packs/Day Years Used Date Smoking Tobacco: Former Cigarettes Q uit: 09/13/2020 Smokeless Tobacco: Never Tobacco Cessation:Counseling Given: Not Answered Alcohol Use Standard Drinks/Week Comments No 0 (1 standard drink = 0.6 oz pur e alcohol) Comments No Sex and Gender Information Value Date Recorded Sex Assigned at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 Gender Identity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 Sexual Orientation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 Last Filed Vital Signs Vital Sign Reading Time Taken Comments Blood Pressure 143/86 11/21/2022 11:17 PM CDT Pulse 90 11/21/2022 11:17 PM CDT Temperature 36.7 ??C (98 ??F) 11/21/2022 11:17 PM CDT Respiratory Rate 18 11/21/2022 11:17 PM CDT Oxygen Saturation 99% 11/21/2022 11:17 PM CDT Inhaled Oxygen Concentration - - Weight 90.3 kg (199 lb) 11/21/2022 11:17 PM CDT Height 162.6 cm (5' 4 ) 11/21/2022 11:17 PM CDT Body Mass Index 34.16 11/21/2022 11:17 PM CDT Plan of Treatment Health Maintenance Due Date Last Done Comments Hepatitis C Virus (HCV) Screening 1993 Pap Smear 2014 Cervical Cancer Screening (CCS) 2023 HPV/Cotest 2023 Influenza Immunization (#1) 12/27/202301/26, 02/28/2020, 02/11/2019, Additional history exists SARS-COV-2 Immunization ( season) 2023 08/16/2020, 07/19/2020 Td Immunization Every 10 Years (Adults With 1 Tdap) 01/17/2028 01/16/2018, 05/20/2016, 10/13/2014, Additional history exists Respiratory Syncytial Virus (RSV) Immunization (Adult) (1 - 1-dose 75+ series) 2068 Hepatitis B Immunization Completed 994, 1993, 1993 Meningococcal Immunization (ACWY) Aged Out 09/07/2006 No longer eligible based on patient's age to complete this topic Human Papillomavirus (HPV) Immunization Discontinued 2007, 11/09/2006, 09/07/2006 DTaP/Tdap/Td Immunization Discontinued 2017, 05/20/2016, 10/13/2014, Additional history exists Pneumococcal Immunization Combined Aged Out No longer eligible based on patient's age to complete this topic Rotavirus Immunization Aged Out No lo nger eligible based on patient's age to complete this topic Insurance MEDICAID [employer] Care Teams Senior Consultant Relationship Specialty Start Date End Date Jessica Navarro APRN, CNP [address] [place] [address] PCP - General Family Medicine 01/16/18 Jessica Navraro APRN, CNP [address] [place] [address] Family Medicine 01/16/18
--- OUTSIDE RECORDS SUMMARY | 2024-04-14 18:28 | XMS_ITS | Encounter Summary ---
Author Organization [employer] Care Team Providers Care Die Baker Name Role Phone Jessica Navarro APRN, CNP Primary Care Provider [phone] Jessica Navarro APRN, CNP Unavailable [phone] Encounter Details Date Type Department Care Team (Latest Contact Info) Description 07/17/2022 Travel Social History Tobacco Use Types Packs/Day Years Used Date Smoking Tobacco: Former Cigarettes Q uit: 09/13/2020 Smokeless Tobacco: Never Alcohol Use Standard Drinks/Week Comments No 0 (1 standard drink = 0.6 oz pur e alcohol) Comments No Sex and Gender Information Value Date Recorded Sex Assigned at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 No / Unsure 07/17/2022 10:20 AM CDT documented as of this encounter Plan of Treatment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 documented as of this encounter Visit Diagnoses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documented in this encounter Care Teams Die Baker Relationship Specialty Start Date End Date Jessica Navarro APRN, CNP [address] [place] [address] PCP - General Family Medicine 01/16/18 Jessica Navarro APRN, CNP [address] [place] [address] Family Medicine 01/16/18 documented as of this encounter
--- OUTSIDE RECORDS SUMMARY | 2024-04-14 18:28 | XMS_ITS | Encounter Summary ---
Author Organization [facility] Address [address] [place] [address] Phone Care Team Providers Care Flat Ironer Name Role Phone Jessica Navarro APRN, CNP Primary Care Provider [phone] Jessica Navarro APRN, CNP Unavailable Reason for Referral * Radiology Services (Routine) - Closed Specialty Diagnoses / Procedures Referred By Jonas reeves Referred To Contact Radiology Diagnoses Abnormal uterine and vaginal bleeding, unspecified Procedures US PELVIS COMPLETE WITH TRANSVAGINAL Grace Conner MD [address] [place] [address] [address] [place] [address] Phone: tel: fax: Referral ID Status Reason Start Date Expiration Date Visits Re quested Visits Authorized [id number] Closed 01/22/2023 1 1 Encounter Details Date Type Department Care Team (Late st Contact Info) Description 01/22/2023 Transcribe Orders [facility] Central Scheduling [address] [place] [address] Grace Conner MD [address] [place] [address] DR [address]IZ[address] [place] [phone] Abnormal uterine and vaginal bleeding, unspecified (Primary Dx) Social History Tobacco Use Types Packs/Day Years Used Date Smoking Tobacco: Former Cigarettes Q uit: 09/13/2020 Smokeless Tobacco: Never Alcohol Use Standard Drinks/Week Comments No 0 (1 standard drink = 0.6 oz pur e alcohol) Comments No Sex and Gender Information Value Date Recorded Sex Assigned at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 Multiple small peripheral follicles in both ovaries which can be seen with polycystic ovarian syndrome. Narrative 01/24/2023 4:46 PM CDT EXAM DESCRIPTION: ?? US PELVIS COMPLETE WITH TRANSVAGINAL REASON FOR STUDY: Abnormal vaginal bleeding, history of polycystic ovarian syndrome. TECHNIQUE: Grayscale ultrasound of the pelvic contents was performed with ??transabdominal and transvaginal ??transducer. ?? COMPARISON: None. FINDINGS: UTERUS: ?? The uterus is anteverted. ??The uterus is ?? homogenous ??in echotexture and measures ??8.2 x 4.1 x 3.9 ??cm. ?? Nabothian cysts are noted. ENDOMETRIUM: The endometrium measures ??0.7 cm ??in thickness. RIGHT OVARY: The right ovary measures ??3.3 x 3.8 x 4.1 ??cm. ??There is documentation of color Doppler flow in the right ovary. ??Multiple small peripheral follicles. LEFT OVARY: The left ovary measures ??3.7 x 3.0 x 4.2 ??cm. ??There is documentation of color Doppler flow in the left ovary. ??Multiple small peripheral follicles. PELVIC FLUID: ?? There is no evidence of free fluid in the pelvis. OTHER: ?? No other significant findings. THIS IS AN ELECTRONICALLY VERIFIED FINAL REPORT 01/24/2023 4:44 PM - Electronically signed by ??Kael Tobias M.D. CH: D: ??01/24/2023 4:44 PM T: ??01/24/2023 4:44 PM Report ID: [id number] Reading Location: ??[id number] Procedure Note Kael Tobias Jr., MD - 01/24/2023 EXAM DESCRIPTION: US PELVIS COMPLETE WITH TRANSVAGINAL REASON FOR STUDY: Abnormal vaginal bleeding, history of polycystic ovarian syndrome. TECHNIQUE: Grayscale ultrasound of the pelvic contents was performed with transabdominal and transvaginal transducer. COMPARISON: None. FINDINGS: UTERUS: The uterus is anteverted. The uterus is homogenous in echotexture and measures 8.2 x 4.1 x 3.9 cm. Nabothian cysts are noted. ENDOMETRIUM: The endometrium measures 0.7 cm in thickness. RIGHT OVARY: The right ovary measures 3.3 x 3.8 x 4.1 cm. There is documentation of color Doppler flow in the right ovary. Multiple small peripheral follicles. LEFT OVARY: The left ovary measures 3.7 x 3.0 x 4.2 cm. There is documentation of color Doppler flow in the left ovary. Multiple small peripheral follicles. PELVIC FLUID: There is no evidence of free fluid in the pelvis. OTHER: No other significant findings. THIS IS AN ELECTRONICALLY VERIFIED FINAL REPORT 01/24/2023 4:44 PM - Electronically signed by Kael Tobias M.D. CH: Report ID: [id number] Reading Location: [id number] IMPRESSION: No evidence of an acute abnormality. Multiple small peripheral follicles in both ovaries which can be seen with polycystic ovarian syndrome. us Grace Conner MD IMG US ORDERABLES Final Result documented in this encounter Visit Diagnoses Diagnosis Abnormal uterine and vaginal bleeding, unspecified- Primary Abnormal uterine and vaginal bleeding, unspecified documented in this encounter Care Teams Flat Ironer Relationship Specialty Start Date End Date Jessica Navarro APRN, CNP [address] [place] [address] PCP - General Family Medicine 01/16/18 Jessica Navarro APRN, CNP [address] [place] [address] Family Medicine 01/16/18 documented as of this encounter
--- OUTSIDE RECORDS SUMMARY | 2024-04-14 18:28 | XMS_ITS | Encounter Summary ---
Author Organization [facility] Address [address] 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 Role Phone Jessica Navarro APRN, CNP Primary Care Provider [phone] Jessica Navarro APRN, CNP Unavailable [phone] Reason for Visit * Reason Comments High Blood Sugar Encounter Details Date Type Department Care Team (Late st Contact Info) Description 11/21/2022 11:22 PM CDT - 11/22/2022 3:51 AM CDT Emergency [facility] Emergency [address] [place] [address] Nelson Pearson MD [address] [place] [address] Hyperglycemia due to diabetes mellitus (HCC) Discharge Disposition: Discharged to home or Selfcare Social History Tobacco Use Types Packs/Day Years Used Date Smoking Tobacco: Former Cigarettes Q uit: 09/13/2020 Smokeless Tobacco: Never Alcohol Use Standard Drinks/Week Comments No 0 (1 standard drink = 0.6 oz pur e alcohol) Comments No Sex and Gender Information Value Date Recorded Sex Assigned at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 No / Unsure 11/21/2022 11:17 PM CDT documented as of this encounter Last Filed Vital Signs Vital Sign Reading [...] Mass Index 34.16 11/21/2022 11:17 PM CDT documented in this encounter Discharge Instructions * Attachments The following attachments cannot be sent through Care Everywhere. * Hyperglycemia (Mauritanian) documented in this encounter Medications at Time of Discharge albuterol (PROVENTIL HFA, VENTOLIN HFA) 108 (90 BASE) MCG/ACT Aerosol Solution take 2 Puffs by inhalation every 6 hours as needed for Wheezing. 1 Inhaler 0 05/19/2016 cyclobenzaprine (FLEXERIL) 10 MG Tablet Take 10 mg by mouth. 12/30/2017 ergocalciferol (VITAMIN D) 49417 UNIT Capsule ergocalciferol (vitamin D2) 50,000 unit capsule 07/23/2018 escitalopram (LEXAPRO) 10 MG Tablet Take 10 mg by mouth daily. fluticasone (FLONASE) 50 MCG/ACT Suspension fluticasone propionate 50 mcg/actuation nasal spray,suspension gabapentin (NEURONTIN) 300 MG Capsule Take 2 Capsules by mouth nightly. 05/14/2021 HYDROcodone-acet aminophen (NORCO) 5-325 MG Tablet Take 2 Tabs by mouth. 09/28/2018 insulin lispro (HumaLOG) 100 UNIT/ML Solution Use as directed 10 mL 11/22/2022 metFORMIN (GLUCOPHAGE) 500 MG Tablet Take 1 Tablet by mouth 2 times daily (with meals). 180 Tablet 11/22/2022 ondansetron (ZOFRAN-ODT) 4 MG TABLET DISPERSIBLE Take 1 Tab by mouth every 6 hours as needed for Nausea - 1st line. 5 Tab 10/08/2018 MV-Min-Fe Fum-FA-DHA ( 1) 30-0.975-200 MG Capsule 28 mg iron-800 mcg tablet zolpidem (AMBIEN) 5 MG TabletIndication s:Primary insomnia Take 1 Tablet by mouth nightly as needed for Sleep. 30 Tablet 05/15/2021 insulin glargine (LANTUS) 100 UNIT/ML Solution 20 Units by Subcutaneous route nightly for 30 days. 6 mL 11/22/2022 12/23/19 23 documented as of this encounter ED Notes * Nazia Orr RN - 11/22/2022 3:50 AM CDT Patient discharged. Discharge instructions and patient educational material reviewed with patient; questions and concerns addressed; patient verbalizes understanding, using teach back. Patient was given 3 prescriptions. Patient discharged per ambulatory mode as responsible republican. SL D/C'ed with Arpit cath intact. * Nazia Orr RN - 11/22/2022 3:16 AM CDT Report received from Jayne SWARTZ. Pt resting on stretcher. No signs of distress noted. * Jayne Jonas RN - 11/21/2022 11:56 PM CDT Pt medicated per provider orders. Pt educated on intended effects and side effects of medication and verbalized understanding, able to provide teach back of education. * Nelson Pearson MD - 11/21/2022 11:37 PM CDTAssociated Order(s): Critical Care Chief Complaint Patient presents with ??? High Blood Sugar Lilli Santos is a 27 y.o. female who presents to the emergency department complaining of elevated blood sugars. Patient states she has not felt well for the last couple of days. She is had nausea and vomiting. She is had some blurry vision and a headache. Patient states she checked her sugar wasgreater than 500. Patient has a history of diabetes. She normally takes insulin and metformin but states she ran out about 4 days ago. She was in [place] for a month and ran out there. When she came home today she did not have any left because she would taken it all with her. Came to get checked out. Normally takes 5-10 units of Humalog with meals and 20 units of Lantus once a day. Patient reports she also takes metformin. Past medical history: Illnesses: Diabetes Medications: Lantus, Humalog and metformin Allergies: No known drug allergies Social History: Tobacco: E cigarette Alcohol: Occasional Marijuana: Denies This chart was created using a voice recognition program. There maybe grammatical and/or syntax errors that are unintentional. No current facility-administered medications for this encounter. Current Outpatient Medications Medication Sig Dispense Refill ??? albuterol (PROVENTIL HFA, VENTOLIN HFA) 108 (90 BASE) MCG/ACT Aerosol Solution take 2 Puffs by inhalation every 6 hours as needed for Wheezing. 1 Inhaler 0 ??? cyclobenzaprine (FLEXERIL) 10 MG Tablet Take 10 mg by mouth. ??? ergocalciferol (VITAMIN D) 67205 UNIT Capsule ergocalciferol (vitamin D2) 50,000 unit capsule (Patient not taking: Reported on 02/13/2021) ??? escitalopram (LEXAPRO) 10 MG Tablet Take 10 mg by mouth daily. ??? fluticasone (FLONASE) 50 MCG/ACT Suspension fluticasone propionate 50 mcg/actuation nasal spray,suspension (Patient not taking: Reported on 02/13/2021) ??? gabapentin (NEURONTIN) 300 MG Capsule Take 2 Capsules by mouth nightly. ??? HYDROcodone-acetaminophen (NORCO) 5-325 MG Tablet Take 2 Tabs by mouth. (Patient not taking: Reported on 02/13/2021) ??? insulin glargine (LANTUS) 100 UNIT/ML Solution 20 Units by Subcutaneous route nightly for 30 days. 6 mL 0 ??? insulin lispro (HumaLOG) 100 UNIT/ML Solution Use as directed 10 mL 0 ??? metFORMIN (GLUCOPHAGE) 500 MG Tablet Take 1 Tablet by mouth 2 times daily (with meals). 180 Tablet 0 ??? ondansetron (ZOFRAN-ODT) 4 MG TABLET DISPERSIBLE Take 1 Tab by mouth every 6 hours as needed for Nausea - 1st line. (Patient not taking: Reported on 02/13/2021) 5 Tab 0 ??? MV-Min-Fe Fum-FA-DHA ( 1) 30-0.975-200 MG Capsule 28 mg iron-800 mcg tablet (Patient not taking: Reported on 02/13/2021) ??? zolpidem (AMBIEN) 5 MG Tablet Take 1 Tablet by mouth nightly as needed for Sleep. 30 Tablet 0 Allergies Allergen Reactions ??? Mena Shortness of Breath Past Medical History Positives Diagnosis Date ??? Amygdalolith ??? Asthma ??? Asthmatic bronchitis ??? Chronic back pain ??? Diabetes mellitus (HCC) ??? Impaired fasting blood sugar ??? Lymphadenopathy of head and neck ??? Mixed anxiety and depressive disorder ??? Prehypertension ??? Sleep disorder ??? Thyroid nodule Past Surgical History: Procedure Laterality Date ??? MAMMO DUCTOGRAM - SINGLE REDUCED ??? OTHER SURGICAL HISTORY partial lobectomy of thyroid Social History Socioeconomic History ??? Marital status: Spouse name: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 ??? Number of children: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 ??? Years of education: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 ??? Highest education level: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 Occupational History ???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 Tobacco Use ??? Smoking status: Former Packs/day: 0.50 Types: Cigarettes Quit date: 09/13/2020 Years since quittin.1 ??? Smokeless tobacco: Never Vaping Use ??? Vaping Use: Never used Substance and Sexual Activity ??? Alcohol use: No ??? Drug use: No ??? Sexual activity: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 Other Topics Concern ???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 Social History Narrative Merged History Encounter BP 143/86 Pulse 90 Temp 98 ??F (36.7 ??C) (Tympanic) Resp 18 Ht 5' 4 (1.626 m) Wt 199 lb(90.3 kg) LMP 11/21/2022 (Exact Date) SpO2 99% BMI 34.16 kg/m?? Review of Systems Constitutional: Negative for activity change, appetite change, chills, diaphoresis, fatigue and fever. HENT: Negative for dental problem, rhinorrhea and sore throat. Eyes: Positive for visual disturbance. Respiratory: Negative for cough, chest tightness, shortness of breath and wheezing. Cardiovascular: Negative for chest pain, palpitations and leg swelling. Gastrointestinal: Positive for nausea and vomiting. Negative for abdominal pain, constipation and diarrhea. Genitourinary: Negative for difficulty urinating, flank pain, hematuria and urgency. Musculoskeletal: Negative for arthralgias, back pain, myalgias, neck pain and neck stiffness. Skin: Negative for color change and rash. Allergic/Immunologic: Negative for food allergies. Neurological: Positive for headaches. Negative for dizziness, syncope, weakness, light-headedness and numbness. Psychiatric/Behavioral: Negative for self-injury, sleep disturbance and suicidal ideas. All other systems reviewed and are negative. Physical Exam Vitals and nursing note reviewed. Constitutional: General: She is not in acute distress. Appearance: She is well-developed. She is obese. She is not diaphoretic. HENT: Head: Normocephalic and atraumatic. Right Ear: External ear normal. Left Ear: External ear normal. Nose: Nose normal. Mouth/Throat: Mouth: Mucous membranes are moist. Pharynx: No oropharyngeal exudate. Eyes: General: Right eye: No discharge. Left eye: No discharge. Conjunctiva/sclera: Conjunctivae normal. Pupils: Pupils are equal, round, and reactive to light. Neck: Thyroid: No thyromegaly. Vascular: No JVD. Trachea: No tracheal deviation. Cardiovascular: Rate and Rhythm: Normal rate and regular rhythm. Heart sounds: Normal heart sounds. No murmur heard. Pulmonary: Effort: Pulmonary effort is normal. No respiratory distress. Breath sounds: Normal breath sounds. No wheezing or rales. Chest: Chest wall: No tenderness. Abdominal: General: Bowel sounds are normal. There is no distension. Palpations: Abdomen is soft. There is no mass. Tenderness: There is no abdominal tenderness. There is no guarding or rebound. Musculoskeletal: General: No tenderness. Normal range of motion. Cervical back: Normal range of motion and neck supple. Lymphadenopathy: Cervical: No cervical adenopathy. Skin: General: Skin is warm and dry. Capillary Refill: Capillary refill takes less than 2 seconds. Coloration: Skin is not pale. Findings: No erythema or rash. Neurological: Mental Status: She is alert and oriented to person, place, and time. Cranial Nerves: No cranial nerve deficit. Motor: No abnormal muscle tone. Coordination: Coordination normal. Deep Tendon Reflexes: Reflexes are normal and symmetric. Psychiatric: Behavior: Behavior normal. Thought Content: Thought content normal. Critical Care Performed by: Nelson Pearson MD Authorized by: Nelson Pearson MD Critical care provider statement: Critical care time (minutes): 30 Critical care was necessary to treat or prevent imminent or life-threatening deterioration of the following conditions: Metabolic crisis Critical care was time spent personally by me on the following activities: Blood draw for specimens, development of treatment plan with patient or surrogate, evaluation of patient's response to treatment, examination of patient, obtaining history from patient or surrogate, ordering and performing treatments and interventions, ordering and review of laboratory studies, ordering and review of radiographic studies, pulse oximetry, re-evaluation of patient's condition and review of old charts Imaging Results None Labs Reviewed CMP (COMPREHENSIVE METABOLIC PANEL) - Abnormal; Notable for the following components: Result Value SODIUM 135 (*) CHLORIDE 96 (*) GLUCOSE 431 (*) SGOT (AST) 108 (*) SGPT (ALT) 169 (*) All other components within normal limits URINALYSIS REFLEX IF INDICATED BY ABNORMAL RESULTS - Abnormal; Notable for the following components: PROTEIN, RANDOM URINE 30 mg/dL (*) URINE GLUCOSE, QUAL 1000 mg/dL (*) URINE BLOOD 250 /uL (*) URINE RBC'S 11-20 (*) BACTERIA, URINE Moderate (*) All other components within normal limits POCT GLUCOSE - Abnormal; Notable for the following components: GLUCOSE,BEDSIDE POCT 441 (*) All other components within normal limits POCT GLUCOSE - Abnormal; Notable for the following components: GLUCOSE,BEDSIDE POCT 366 (*) All other components within normal limits POCT GLUCOSE - Abnormal; Notable for the following components: GLUCOSE,BEDSIDE POCT 335 (*) All other components within normal limits CBC WITH AUTO DIFFERENTIAL - Abnormal; Notable for the following components: RDW 11.4 (*) MPV 12.5 (*) LYMPHOCYTES 43.0 (*) ABSOLUTE LYMPHOCYTES 4.23 (*) All other components within normal limits COMPLETE BLOOD COUNT (CBC) WITH DIFF Narrative: The following orders were created for panel order CBC w/ Diff. Procedure Abnormality Status --------- ------ CBC with Auto Differential[[id number]] Abnormal Final result Please view results for these tests on the individual orders. UR TEST QUAL MDM Clinical Impression 1. Hyperglycemia due to diabetes mellitus (HCC) Disposition: Discharged Impression: Patient presents with nausea and vomiting and malaise concerning for DKA. Patient's history of noncompliance with diabetic medicines has impacted care and subsequent medical decision making. In the workup of these potential diagnoses I considered but did not pursue stroke, ACS due to signsand symptoms on exam and initial findings not consistent with these disease processes. Tests were independently reviewed and interpreted and imaging independently visualized and interpreted. This is notable for hyperglycemia without evidence of DKA Interventions and treatments in the ER IV fluids, IV insulin I considered escalation of care including observation versus admission but not warranted due to improvement in symptoms and labs Plan for discharge home. Discussed the case with patient. I will prescribe metformin, Lantus and NovoLog. Reasons to return to the emergency room were discussed. The patient remained stable throughout their ED stay. My clinical impression was discussed with thepatient/caregiver. Any labs and radiology results were reviewed. Questions were addressed as completely as possible given the information available at present. The therapeutic plan was discussed, inst ructions were given and the importance of primary care follow up was stressed and encouraged. The patient/caregiver voiced understanding of the plan, indications to return, and the need for follow up. Reasons to return to the E.D. were discussed. New Medications: New Prescriptions INSULIN GLARGINE (LANTUS) 100 UNIT/ML SOLUTION 20 Units by Subcutaneous route nightly for 30 days. INSULIN LISPRO (HUMALOG) 100 UNIT/ML SOLUTION Use as directed I have advised the patient to follow-up with: Jessica Navarro, ESTELITA, PARKING MANAGER [address]IZABETH [address] [place] [id number] Call on 11/24/2022 Dispostion: Discharge * Ella Baltazar RN - 11/21/2022 11:21 PM CDT Patient ambulatory to ER c/o high blood sugar and n/v x1 day. States she has been without her insulin for three days due to traveling. BS 441 in triage. A&Ox4. documented in this encounter Plan of Treatment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 documented as of this encounter Procedures Procedure Name Priority Date/Time Associated Diagnosis Comments POCT GLUCOSE STAT 11/22/2022 3:40 AM CDT POCT GLUCOSE STAT 11/22/2022 2:29 AM CDT UR TEST QUAL STAT 11/22/2022 1:40 AM CDT POCT GLUCOSE STAT 11/22/2022 1:02 AM CDT URINALYSIS REFLEX IF INDICATED BY ABNORMAL RESULTS STAT 11/21/2022 11:57 PM CDT CBC WITH AUTO DIFFERENTIAL STAT 11/21/2022 11:43 PM CDT CMP (COMPREHENSIVE METABOLIC PANEL) STAT 11/21/2022 11:43 PM CDT COMPLETE BLOOD COUNT (CBC) WITH DIFF STAT 11/21/2022 11:43 PM CDT CRITICAL CARE Routine 11/21/2022 11:37 PM CDT POCT GLUCOSE STAT 11/21/2022 11:21 PM CDT documented in this encounter Results * (ABNORMAL) POCT Glucose (11/22/2022 3:40 AM CDT) Only the most recent of4 resultswithin the time period is included. [facility] Gomez GLUCOSE,BEDSID E POCT 173(H) 70 - 99 mg/dL 11/22/2022 3:48 AM CDT [facility] Comment: RN Notified NAZIA ORR Blood 11/22/2022 3:40 AM CDT 11/22/2022 3:48 AM CDT us None Provider POINT OF CARE TESTING Final Resu lt Performing Organization Address City/[facility]/ZIP Co de Phone Number [facility] [address] [place] [address] * Ur Test Qual (11/22/2022 1:40 AM CDT) PREG TEST,MONOCLONA L Negative 11/22/2022 1:45 AM CDT [facility] Urine Non-Phlebotomy Collection / Unknown 11/22/2022 1:40 AM CDT 11/22/2022 1:40 AM CDT us Nelson Pearson MD URINE ORDERABLES Final Result Performing Organization Address [facility] de Phone Number [facility] [address] [place] [address] * (ABNORMAL) Urinalysis w/ Reflex (11/21/2022 11:57 PM CDT) [facility] SPECIFIC GRAVITY 1.010 1.003 - 1.030 11/22/2022 12:26 AM CDT [facility] URINE PH 6.0 5.0 - 9.0 11/22/2022 12:26 AM CDT [facility] WBC ESTERASE Negative Negative 11/22/2022 12:26 AM CDT [facility] NITRITE Negative Negative 11/22/2022 12:26 AM CDT [facility] PROTEIN, RANDOM URINE 30 mg/dL(A) Negative 11/22/2022 12:26 AM CDT [facility] URINE GLUCOSE, QUAL 1000 mg/dL(A) Negative 11/22/2022 12:26 AM CDT [facility] URINE KETONES Negative Negative 11/22/2022 12:26 AM CDT [facility] UROBILINOGEN Normal Normal mg/dL 11/22/2022 12:26 AM CDT [facility] URINE BLOOD 250 /uL(A) Negative nakita/ul 11/22/2022 12:26 AM CDT [facility] URINALYSIS COLOR Yellow 11/23/19 12:26 AM CDT [facility] URINALYSIS CLARITY Clear 11/22/2022 12:26 AM CDT [facility] WBC (Urine) 0-5 Negative, 0-5 /hpf 11/22/2022 12:26 AM CDT [facility] URINE RBC'S 11-20(A) Negative, 0-2 /hpf 11/22/2022 12:26 AM CDT [facility] EPITHELIAL CELLS Small amount /lpf 2022 12:26 AM CDT [facility] BACTERIA, URINE Moderate(A) Negative /hpf 11/22/2022 12:26 AM CDT [facility] Urine URINE SPECIMEN / Unknown Non-Phlebotomy Collection / Unknown 11/21/2022 11:57 PM CDT 11/22/2022 12:10 AM CDT Nelosn Pearson MD URINE ORDERABLES Final Result [facility] [address] [place] [address] * (ABNORMAL) CBC with Auto Differential (11/21/2022 11:43 PM CDT) WBC 9.84 4.00 - 12.00 10(3)/mcL 11/22/2022 12:13 AM CDT [facility] RBC 4.55 3.80 - 5.30 10(6)/[facility] 11/22/2022 12:13 AM CDT [facility] HEMOGLOBIN (HGB) 14.1 12.0 - 15.8 g/dL 11/22/2022 12:13 AM CDT [facility] HEMATOCRIT (HCT) 40.5 36.0 - 47.0 % 11/22/2022 12:13 AM CDT [facility] MCV 89.0 82.0 - 96.0 fL 11/22/2022 12:13 AM CDT [facility] MCH 31.0 26.0 - 34.0 pg 11/22/2022 12:13 AM CDT [facility] MCHC 34.8 31.0 - 36.0 g/dL 11/22/2022 12:13 AM CDT [facility] PLATELET COUNT 256 140 - 440 10(3)/mcL 11/22/2022 12:13 AM CDT [facility] RDW 11.4(L) 11.8 - 15.5 % 11/22/2022 12:13 AM CDT [facility] MPV 12.5(H) 9.7 - 12.4 fL 11/22/2022 12:13 AM CDT [facility] NEUTROPHILS 47.2 47.0 - 73.0 % 11/22/2022 12:13 AM CDT [facility] LYMPHOCYTES 43.0(H) 18.0 - 42.0 % 11/22/2022 12:13 AM CDT [facility] MONOCYTES 6.5 4.0 - 12.0 % 11/22/2022 12:13 AM CDT [facility] EOSINOPHILS 2.8 0.0 - 5.0 % 11/22/2022 12:13 AM CDT [facility] BASOPHILS 0.5 0.0 - 1.0 % 11/22/2022 12:13 AM CDT [facility] ABSOLUTE NEUTROPHILS 4.64 1.60 - 7.70 10(3)/mcL 11/22/2022 12:13 AM CDT [facility] ABSOLUTE LYMPHOCYTES 4.23(H) 1.30 - 3.20 10(3)/mcL 11/22/2022 12:13 AM CDT [facility] ABSOLUTE MONOCYTES 0.64 0.20 - 1.00 10(3)/mcL 11/22/2022 12:13 AM CDT [facility] ABSOLUTE EOSINOPHIL 0.28 0.00 - 0.40 10(3)/mcL 11/22/2022 12:13 AM CDT [facility] ABSOLUTE BASOPHILS 0.05 0.00 - 0.10 10(3)/mcL 11/22/2022 12:13 AM CDT [facility] NRBC PER 100 WBC 0 11/23/19 12:13 AM CDT [facility] Blood Venipuncture / Unknown 11/21/2022 11:43 PM CDT 11/22/2022 12:10 AM CDT us Nelson Pearson MD HEMATOLOGY ORDERABLES Final Res ult [facility] [address] [place] [address] * (ABNORMAL) CMP (11/21/2022 11:43 PM CDT) SODIUM 135(L) 136 - 144 mmol/L 11/22/2022 12:44 AM CDT [facility] POTASSIUM 3.5 3.5 - 5.1 mmol/L 11/22/2022 12:44 AM CDT [facility] CHLORIDE 96(L) 100 - 110 mmol/L 11/22/2022 12:44 AM CDT [facility] CO2, VENOUS 25 22 - 32 mmol/L 11/22/2022 12:44 AM CDT [facility] ANION GAP 17.5 8.0 - 20.0 mmol/L 11/22/2022 12:44 AM CDT [facility] GLUCOSE 431(HH) 70 - 99 mg/dL 11/22/2022 12:44 AM CDT [facility] BUN 15 6 - 20 mg/dL 11/22/2022 12:44 AM CDT [facility] CREATININE, BLOOD 1.05 0.60 - 1.10 mg/dL 11/22/2022 12:44 AM [facility] BUN/CREATININE RATIO 14 12 - 20 ratio 11/22/2022 12:44 AM [facility] TOTAL PROTEIN 7.7 6.0 - 8.3 g/dL 11/22/2022 12:44 AM [facility] ALBUMIN 4.7 3.5 - 5.2 g/dL 11/22/2022 12:44 AM [facility] Comment: The colormetric methods used for the determination of Albumin may lead to falsely elevated test results in patients suffering from renal failure or insufficiency due to interference with other proteins. A/G RATIO 1.6 1.0 - 2.0 11/22/2022 12:44 AM [facility] CALCIUM 9.7 8.7 - 10.5 mg/dL 11/22/2022 12:44 AM [facility] T BILI 0.7 0.2 - 1.2 mg/dL 11/22/2022 12:44 AM [facility] SGOT (AST) 108(H) <=32 U/L 11/22/2022 12:44 AM [facility] SGPT (ALT) 169(H) <=41 U/L 11/22/2022 12:44 AM [facility] ALKALINE PHOSPHATASE 87 35 - 105 U/L 11/22/2022 12:44 AM [facility] GFR, ESTIMATED >60 >=60 11/22/2022 12:44 AM [facility] Comment: Creatinine Clearance is the preferred criteria for selecting drug dose adjustments in renally impaired patients. ??The GFR is provided as additional pertinent clinical information. GFR is reported in mL/min/1.73 sq m. Calculation based on the Chronic Kidney Disease Epidemiology Collaboration (CKD- EPI) equation refit without adjustment for race. GFR, EST. >60 >=60 023 12:44 AM [facility] GFR, EST. NONAFRICAN >60 >=60 11/22/2022 12:44 AM [facility] Blood Venipuncture / Unknown 11/21/2022 11:43 PM CDT 11/22/2022 12:10 AM CDT Nelson Pearson MD CHEMISTRY ORDERABLES Final Resu lt [facility] [address] [place] [address] * Critical Care (11/21/2022 11:37 PM CDT) Narrative Nelson Pearson MD - 11/21/2022 11:37 PM CDT Nelson Pearson MD ? 11/22/2022 ??3:46 AM Critical Care Performed by: Nelson Pearson MD Authorized by: Nelson Pearson MD Critical care provider statement: ??Critical care time (minutes): ??30 ??Critical care was necessary to treat or prevent imminent or life-threatening deterioration of the following conditions: ??Metabolic crisis ??Critical care was time spent personally by me on the following activities: ??Blood draw for specimens, development of treatment plan with patient or surrogate, evaluation of patient's response to treatment, examination of patient, obtaining history from patient or surrogate, ordering and performing treatments and interventions, ordering and review of laboratory studies, ordering and review of radiographic studies, pulse oximetry, re-evaluation of patient's condition and review of old charts Result [facility] Nelson Pearson MD PROCEDURE/MINOR SURGICAL ORDERA BLES Final Result documented in this encounter Visit Diagnoses Diagnosis Hyperglycemia due to diabetes mellitus (HCC)- Primary documented in this encounter Administered Medications Inactive Administered Medications - up to 3 most recent administrations Medication Order MAR Action Action Date Dose Rate Site insulin glargine (LANTUS) 100 UNIT/ML injection 20 Units 20 Units, Subcutaneous, ONCE, 1 dose, On 11/22/22 at 0000 Given 11/21/2022 11:56 PM CDT 20 Units Left Abdomen insulin regular (HumuLIN R;NovoLIN R) 10 Units in insulin syringe 10 Units, Intravenous, ONCE, 1 dose, On 11/22/22 at 0300, Draw insulin up using the luer tip insulin syringe. Do not dilute. Administer insulin at the port closest to the IV insertion site to decrease risk of insulin binding to the lumen of the tubing. Disconnect tubing if necessary to access port closest to insertion site. Flush with 10 mL Saline after administration. Given 11/22/2022 2:40 AM CDT 10 Units metFORMIN (GLUCOPHAGE) tablet 1,000 mg 1,000 mg, Oral, ONCE, 1 dose, On 11/22/22 at 0230 Given 11/22/2022 1:59 AM CDT 1,000 mg sodium chloride 0.9 % 1,000 mL IV bolus 1,000 mL, Intravenous, ONCE, 1 dose, On 11/22/22 at 0000, Administer over 0.5 Hours New Bag 11/21/2022 11:55 PM CDT 1,000 mL 2000 mL/hr sodium chloride 0.9 % 1,000 mL IV bolus 1,000 mL, Intravenous, ONCE, 1 dose, On 11/22/22 at 0230, Administer over 0.5 Hours New Bag 11/22/2022 2:00 AM CDT 1,000 mL 2000 mL/hr documented in this encounter Active and Recently Administered Medications Times are shown in CDT. Scheduled Medication Order 11/20/2022 11/21/2022 11/22/2022 insulin glargine (LANTUS) 100 UNIT/ML injection 20 Units (COMPLETED) 20 Units, Subcutaneous, ONCE, 1 dose, On 11/22/22 at 0000 2356 (Given - Provider: Jayne Jonas RN) insulin regular (HumuLIN R;NovoLIN R) 10 Units in insulin syringe (COMPLETED)(Linked Group 1) 10 Units, Intravenous, ONCE, 1 dose, On 11/22/22 at 0300, Draw insulin up using the luer tip insulin syringe. Do not dilute. Administer insulin at the port closest to the IV insertion site to decrease risk of insulin binding to the lumen of the tubing. Disconnect tubing if necessary to access port closest to insertion site. Flush with 10 mL Saline after administration. 0240 (Given - Provid er: Jayne Jonas RN) metFORMIN (GLUCOPHAGE) tablet 1,000 mg (COMPLETED) 1,000 mg, Oral, ONCE, 1 dose, On 11/22/22 at 0230 0159 (Given - Provid er: Jayne R Jonas, RN) sodium chloride 0.9 % 1,000 mL IV bolus (COMPLETED) 1,000 mL, Intravenous, ONCE, 1 dose, On 11/22/22 at 0000, Administer over 0.5 Hours 2355 (New Bag - Provider: Jayne Jonas, SHERIDAN) 0139 (Stopped - Provider: Jayne Jonas, RN) sodium chloride 0.9 % 1,000 mL IV bolus (COMPLETED) 1,000 mL, Intravenous, ONCE, 1 dose, On 11/22/22 at 0230, Administer over 0.5 Hours 0200 (New Bag - Provider: Jayne Jonas, SHERIDAN)0240 (Stopped - Provider: Jayne Jonas, RN) Linked Groups Order Group 1: insulin regular (HumuLIN R;NovoLIN R) 10 Units in insulin syringe (COMPLETED)Jump to med 10 Units, Intravenous, ONCE, 1 dose, On 11/22/22 at 0300, Draw insulin up using the luer tip insulin syringe. Do not dilute. Administer insulin at the port closest to the IV insertion site to decrease risk of insulin binding to the lumen of the tubing. Disconnect tubing if necessary to access port closest to insertion site. Flush with 10 mL Saline after administration. And Perform POC Blood Glucose (CANCELED) Routine, EVERY HOUR, First occurrence on 11/22/22 at 0345, For 4 occurrences, First accucheck 1 hour after insulin dose., Call if glucose greater than: 400, Call if glucose less than: 70 documented in this encounter Care Teams Repeat Photocomposing Machine Operator Relationship Specialty Start Date End Date Jessica Navarro APRN, CNP [address] [place] [address] PCP - General Family Medicine 01/16/18 Jessica Navarro APRN, TALIA [address] [place] [address] Family Medicine 01/16/18 documented as of this encounter
--- OUTSIDE RECORDS SUMMARY | 2024-04-14 18:28 | XMS_ITS | Encounter Summary ---
Author Organization [facility] Address [address] [place] [address] Phone Care Team Providers Care Bankman Name Role Phone Jessica Navarro APRN, CNP Primary Care Provider [phone] Jessica Navarro APRN, CNP Unavailable Reason for Referral * Radiology Services (Routine) - Closed Specialty Diagnoses / Procedures Referred By Contac t Referred To Contact Radiology Diagnoses Abnormal uterine and vaginal bleeding, unspecified Procedures US PELVIS COMPLETE WITH TRANSVAGINAL Grace Conner MD [address] [place] [address] [address] [place] [address] Phone: tel: fax: Referral ID Status Reason Start Date Expiration Date Visits Re quested Visits Authorized [id number] Closed 01/22/2023 1 1 Reason for Visit * Radiology Services (Routine) - Closed Specialty Diagnoses / Procedures Referred By Contac t Referred To Contact Radiology Diagnoses Abnormal uterine and vaginal bleeding, unspecified Procedures US PELVIS COMPLETE WITH TRANSVAGINAL Grace Conner MD [address] [place] [address] [address] [place] [address] Phone: tel: fax: Referral ID Status Reason Start Date Expiration Date Visits Re quested Visits Authorized [id number] Closed 01/22/2023 1 1 Encounter Details Date Type Department Care Team (Latest Contact Info) Description 01/24/2023 10:08 AM CDT - 01/24/2023 11:59 PM CDT Hospital Encounter [facility] Ultrasound [address] [place] [address] Florencio Reynolds MD [address] [facility] [place] [address] Discharge Disposition: Discharged to home or Selfcare Social History Tobacco Use Types Packs/Day Years Used Date Smoking Tobacco: Former Cigarettes Q uit: 09/13/2020 Smokeless Tobacco: Never Alcohol Use Standard Drinks/Week Comments No 0 (1 standard drink = 0.6 oz pur e alcohol) Comments No Sex and Gender Information Value Date Recorded Sex Assigned at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 No / Unsure 01/24/2023 10:04 AM CDT documented as of this encounter Medications at Time of Discharge albuterol (PROVENTIL HFA, VENTOLIN HFA) 108 (90 BASE) MCG/ACT Aerosol Solution take 2 Puffs by inhalation every 6 hours as needed for Wheezing. 1 Inhaler 0 05/19/2016 cyclobenzaprine (FLEXERIL) 10 MG Tablet Take 10 mg by mouth. 12/30/2017 ergocalciferol (VITAMIN D) 59618 UNIT Capsule ergocalciferol (vitamin D2) 50,000 unit [...] as needed for Sleep. 30 Tablet 05/15/2021 documented as of this encounter Plan of Treatment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 documented as of this encounter Procedures Procedure Name Priority Date/Time Associated Diagnosis Comments US PELVIS COMPLETE WITH TRANSVAGINAL Routine 01/24/2023 10:47 AM CDT Abnormal uterine and vaginal bleeding, unspecified documented in this encounter Results * US PELVIS COMPLETE [...] PM T: ??01/24/2023 4:44 PM Report ID: [id number] Reading Location: ??[id number] Procedure Note Kael Tobias Jr., MD - [...] by Kael Tobias M.D. CH: Report ID: [id number] Reading Location: [id number] IMPRESSION: No evidence of an acute abnormality. Multiple small peripheral follicles in both ovaries which can be seen with polycystic ovarian syndrome. Grace Conner MD IMG US ORDERABLES Final Result documented in this encounter Visit Diagnoses Diagnosis Abnormal uterine and vaginal bleeding, unspecified documented in this encounter Care Teams Bankman Relationship Specialty Start Date End Date Jessica Navarro APRN, CNP [address] [place] [address] PCP - General Family Medicine 01/16/18 Jessica Navarro APRN, CNP [address] [place] [address] Family Medicine 01/16/18 documented as of this encounter
--- OUTSIDE RECORDS SUMMARY | 2024-04-14 18:28 | XMS_ITS | Encounter Summary ---
Author Organization [facility] Address [address] [place] [address] Phone Care Team Providers Care Grants Specialist Name Role Phone Jessica Navarro APRN, CNP Primary Care Provider [phone] Jessica Navarro APRN, CNP Unavailable [phone] Reason for Referral * Radiology Services (Routine) - Closed Specialty Diagnoses / Procedures Referred By Jonas reeves Referred To Contact Radiology Diagnoses Abnormal uterine bleeding Procedures US PELVIS COMPLETE WITH TRANSVAGINAL Florencio Reynolds MD [address] [facility] [address] [place] [address] Phone: tel: fax: Referral ID Status Reason Start Date Expiration Date Visits Re quested Visits Authorized [id number] Closed 12/31/2022 1 1 Encounter Details Date Type Department Care Team (Late st Contact Info) Description 12/31/2022 Transcribe Orders [facility] Central Scheduling [address] [place] [address] Florencio Reynolds MD [address] [facility] [address] [place] [address] Abnormal uterine bleeding (Primary Dx) Social History Tobacco Use Types Packs/Day Years Used Date Smoking Tobacco: Former Cigarettes Q uit: 09/13/2020 Smokeless Tobacco: Never Alcohol Use Standard Drinks/Week Comments No 0 (1 standard drink = 0.6 oz pur e alcohol) Comments No Sex and Gender Information Value Date Recorded Sex Assigned at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 Gender Identity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 Sexual Orientation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 documented as of this encounter Plan of Treatment Scheduled Orders Name Type Priority Associated Diagnoses Orde r Schedule US PELVIS COMPLETE WITH TRANSVAGINAL Imaging Routine Abnormal uterine bleeding Expected: 12/31/2022, Expires: 01/01/2024 documented as of this encounter Visit Diagnoses Diagnosis Abnormal uterine bleeding- Primary Unspecified disorder of menstruation and other abnormal bleeding from female genital tract documented in this encounter Care Teams Grants Specialist Relationship Specialty Start Date End Date Jessica Navarro APRN, CNP [address] [place] [address] PCP - General Family Medicine 01/16/18 Jessica Navarro APRN, CNP [address] [place] [address] Family Medicine 01/16/18 documented as of this encounter
--- OUTSIDE RECORDS SUMMARY | 2024-04-14 18:28 | XMS_ITS | Encounter Summary ---
Author Organization [facility] Care Team Providers Care Tower Control Operator Name Role Phone Jessica Navarro APRN, CNP Primary Care Provider [phone] Jessica Navarro APRN, CNP Unavailable [phone] Encounter Details Date Type Department Care Team (Latest Contact Info) Description 01/24/2023 Travel Social History Tobacco Use Types Packs/Day Years Used Date Smoking Tobacco: Former Cigarettes Q uit: 09/13/2020 Smokeless Tobacco: Never Alcohol Use Standard Drinks/Week Comments No 0 (1 standard drink = 0.6 oz pur e alcohol) Comments No Sex and Gender Information Value Date Recorded Sex Assigned at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
--- OUTSIDE RECORDS SUMMARY | 2024-04-14 18:29 | XMS_ITS | Encounter Summary ---
Author Organization [facility] Address [address] [place] [address] Phone Care Team Providers Care Cloth Sponger Name Role Phone Jessica Navarro APRN, CNP Primary Care Provider [phone] Jessica Navarro APRN, CNP Unavailable Reason for Referral * Radiology Services (Routine) - Closed Specialty Diagnoses / Procedures Referred By Contac t Referred To Contact Radiology Diagnoses History of chlamydia infection Procedures XR HYSTEROSALPINGOGRAPHY Karen Hale MD [address] [place] [address] Phone: tel: fax: Referral ID Status Reason Start Date Expiration Date Visits Re quested Visits Authorized [id number] Closed 06/16/2022 1 1 D PLANNER Encounter Details Date Type Department Care Team (Late st Contact Info) Description 06/16/2022 Transcribe Orders [facility] Central Scheduling [address] [place] [id number] Karen Hale MD [address] [place] [address] History of chlamydia infection (Primary Dx) Social History Tobacco Use Types Packs/Day Years Used Date Smoking Tobacco: Former Cigarettes Q uit: 09/13/2020 Smokeless Tobacco: Never Alcohol Use Standard Drinks/Week Comments No 0 (1 standard drink = 0.6 oz pur e alcohol) Comments No Sex and Gender Information Value Date Recorded Sex Assigned at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 Legal Sex Female 11:35 AM BRAND PLANNER Gender Identity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 Sexual Orientation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 COVID-19 Exposure Response Date Recorded In the last 10 days, have yo u been in contact with someone who was confirmed or suspected to have Coronavirus/COVID-19? No / Unsure 05/23/2022 1:49 PM BRAND PLANNER documented as of this encounter Plan of Treatment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 documented as of this encounter Results * XR HYSTEROSALPINGOGRAPHY (07/17/2022 11:56 AM CDT) Anatomical Region Laterality Modality Abdomen N/A Digital Radiogra phy 07/17/2022 2:52 PM CDT Impressions 07/17/2022 2:55 PM CDT IMPRESSION: Normal hysterosalpingogram. ?? Bilateral patent fallopian tubes. Narrative 07/17/2022 2:55 PM CDT EXAM DESCRIPTION: ?XR HYSTEROSALPINGOGRAPHY REASON FOR STUDY: ?? Unable to conceive for greater than 1 year. COMPARISON: ?? None available. RADIATION DOSE: The available fluoroscopy equipment does not allow calculation of dose. ??Fluoroscopy time was 0.3 minutes. ??Total images acquired 11. TECHNIQUE: Temporal fluoroscopic images acquired during the procedure stored to PACS. PROCEDURE: Procedure was explained to the patient, questions were answered and consent obtained. ??She was told to expect cramping during the procedure and possible spotting post procedure. Following sterile preparation / draping and under direct visual inspection, the cervix was cannulated with the hysterosalpingogram device and ?? 5 ??cc non-ionic contrast injected gradually under low pressure. ??Images were obtained. FINDINGS: UTERUS: ?? No identified anomalies. ??No synechia. RIGHT ADNEXA: ?? There is normal patency of the fallopian tube. ?? There is normal contrast spillage into the peritoneum. LEFT ADNEXA: ?? There is normal patency of the fallopian tube. ??There is normal contrast spillage into the peritoneum. POST PROCEDURE: ?? The patient tolerated the procedure with no adverse side effects. THIS IS AN ELECTRONICALLY VERIFIED FINAL REPORT 07/17/2022 2:52 PM - Electronically signed by ??James MARTINEZ: JUAN D: ??07/17/2022 2:52 PM T: ??07/17/2022 2:52 PM Report ID: [id number] Reading Location: ??[id number] Procedure Note James Hathaway MD - 07/17/2022 EXAM DESCRIPTION: XR HYSTEROSALPINGOGRAPHY REASON FOR STUDY: Unable to conceive for greater than 1 year. COMPARISON: None available. RADIATION DOSE: The available fluoroscopy equipment does not allow calculation of dose. Fluoroscopy time was 0.3 minutes. Total images acquired 11. TECHNIQUE: Temporal fluoroscopic images acquired during the procedure stored to PACS. PROCEDURE: Procedure was explained to the patient, questions were answered and consent obtained. She was told to expect cramping during the procedure and possible spotting post procedure. Following sterile preparation / draping and under direct visual inspection, the cervix was cannulated with the hysterosalpingogram device and 5 cc non-ionic contrast injected gradually under low pressure. Images were obtained. FINDINGS: UTERUS: No identified anomalies. No synechia. RIGHT ADNEXA: There is normal patency of the fallopian tube. There is normal contrast spillage into the peritoneum. LEFT ADNEXA: There is normal patency of the fallopian tube. There is normal contrast spillage into the peritoneum. POST PROCEDURE: The patient tolerated the procedure with no adverse side effects. THIS IS AN ELECTRONICALLY VERIFIED FINAL REPORT 07/17/2022 2:52 PM - Electronically signed by James MARTINEZ: JUAN Report ID: [id number] Reading Location: [id number] IMPRESSION: Normal hysterosalpingogram. Bilateral patent fallopian tubes. Karen Hale MD IMG FLUOROSCOPY ORDERABLES Fi nal Result documented in this encounter Visit Diagnoses Diagnosis History of chlamydia infection- Primary Personal history of other infectious and parasitic disease History of chlamydia infection- Primary Personal history of other infectious and parasitic disease documented in this encounter Care Teams Cloth Sponger Relationship Specialty Start Date End Date Jessica Navarro APRN, CONFIGURATION CONSULTANT [address] [place] [address] PCP - General Family Medicine 01/16/18 Jessica Navarro APRN, CNP [address] [place] [address] Family Medicine 01/16/18 documented as of this encounter
--- OUTSIDE RECORDS SUMMARY | 2024-04-14 18:29 | XMS_ITS | Encounter Summary ---
Author Organization [employer] Care Team Providers Care Automotive Service Director Name Role Phone Jessica Navarro APRN, CNP Primary Care Provider [phone] Jessica Navarro APRN, CNP Unavailable [phone] Encounter Details Date Type Department Care Team (Latest Contact Info) Description 04/17/2022 Travel Social History Tobacco Use Types Packs/Day Years Used Date Smoking Tobacco: Former Cigarettes Q uit: 09/13/2020 Smokeless Tobacco: Never Alcohol Use Standard Drinks/Week Comments No 0 (1 standard drink = 0.6 oz pur e alcohol) Comments No Sex and Gender Information Value Date Recorded Sex Assigned at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 No / Unsure 04/17/2022 9:02 PM EGG FACTORY WORKER documented as of this encounter Plan of Treatment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 documented as of this encounter Visit Diagnoses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documented in this encounter Care Teams Automotive Service Director Relationship Specialty Start Date End Date Jessica Navarro APRN, CNP [address] [place] [address] PCP - General Family Medicine 01/16/18 Jessica Navarro APRN, CNP [address] [place] [address] Family Medicine 01/16/18 documented as of this encounter
--- OUTSIDE RECORDS SUMMARY | 2024-04-14 18:29 | XMS_ITS | Encounter Summary ---
Author Organization [facility] Address [address] [place] [address] Phone Care Team Providers Care Director Of Surgery Name Role Phone Jessica Navarro APRN, CNP Primary Care Provider [phone] Jessica Navarro APRN, CNP Unavailable [phone] Reason for Referral * Consult, Test & Initiate Treatment (Routine) - Closed Specialty Diagnoses / Procedures Referred By Contdavid reeves Referred To Contact Sleep Center Diagnoses ELLI (obstructive sleep apnea) Chance Walker MD [address] [place] [address] Phone: tel: fax: [facility] [address] [place] [address] Phone: tel: fax: Referral ID Status Reason Start Date Expiration Date Visits Re quested Visits Authorized [id number] Closed 05/15/2021 1 1 Scheduling Instructions Lilli is being referred for split night. Please contact patient for scheduling questions or concerns. OR COMMERCIAL LOAN OFFICER Encounter Details Date Type Department Care Team (Late st Contact Info) Description 05/15/2021 Telephone [facility] - Pulmonology & Sleep Medicine [facility] [address] [place] [address] Chance Walker MD [address] [place] [phone] Social History Tobacco Use Types Packs/Day Years Used Date Smoking Tobacco: Former Cigarettes Q uit: 09/13/2020 Smokeless Tobacco: Never Alcohol Use Standard Drinks/Week Comments No 0 (1 standard drink = 0.6 oz pur e alcohol) Comments No Sex and Gender Information Value Date Recorded Sex Assigned at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 Legal Sex Female 11:35 AM SENIOR COMMERCIAL LOAN OFFICER Gender Identity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 Sexual Orientation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 COVID-19 Exposure Response Date Recorded In the last month, have you been in contact with someone who was confirmed or suspected to have Coronavirus / COVID-19? No / Unsure 05/15/2021 10:01 AM SENIOR COMMERCIAL LOAN OFFICER documented as of this encounter Miscellaneous Notes * Telephone Encounter - Char Longo RN - 05/15/2021 11:00 AM SENIOR COMMERCIAL LOAN OFFICER Per Dr. Walker he would like the patient to have a split night sleep study. Referral placed OR COMMERCIAL LOAN OFFICER documented in this encounter Plan of Treatment Scheduled Referrals Name Type Priority Associated Diagnoses Orde r Schedule SLEEP STUDY REFERRAL Outpatient Referral Routine ELLI (obstructive sleep apnea) Expected: 05/15/2021, Expires: 05/15/2022 documented as of this encounter Visit Diagnoses Diagnosis ELLI (obstructive sleep apnea)- Primary Obstructive sleep apnea (adult) (pediatric) documented in this encounter Care Teams Director Of Surgery Relationship Specialty Start Date End Date Jessica Navarro APRN, PERSONALIZED LIVING MANAGER NURSE [address] [place] [address] PCP - General Family Medicine 01/16/18 Jessica Navarro APRN, CNP [address] [place], [place] [id number] Family Medicine 01/16/18 documented as of this encounter
--- OUTSIDE RECORDS SUMMARY | 2024-04-14 18:29 | XMS_ITS | Encounter Summary ---
Author Organization [employer] Care Team Providers Care Fitness Supervisor Name Role Phone Jessica Navarro APRN, CNP Primary Care Provider [phone] Jessica Navarro APRN, CNP Unavailable [phone] Encounter Details Date Type Department Care Team (Latest Contact Info) Description 06/18/2022 Travel Social History Tobacco Use Types Packs/Day Years Used Date Smoking Tobacco: Former Cigarettes Q uit: 09/13/2020 Smokeless Tobacco: Never Alcohol Use Standard Drinks/Week Comments No 0 (1 standard drink = 0.6 oz pur e alcohol) Comments No Sex and Gender Information Value Date Recorded Sex Assigned at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 No / Unsure 06/18/2022 9:41 AM FIRE TECHNOLOGY INSTRUCTOR documented as of this encounter Plan of Treatment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 documented as of this encounter Visit Diagnoses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documented in this encounter Care Teams Fitness Supervisor Relationship Specialty Start Date End Date Jessica Navarro APRN, CNP [address] [place] [address] PCP - General Family Medicine 01/16/18 Jessica Navarro APRN, CNP [address] [place] [address] Family Medicine 01/16/18 documented as of this encounter
--- OUTSIDE RECORDS SUMMARY | 2024-04-14 18:29 | XMS_ITS | Encounter Summary ---
Author Organization [facility] Address [address] [place] [address] Phone Care Team Providers Care Disability Case Manager Name Role Phone Jessica Navarro APRN, CNP Primary Care Provider [phone] Jessica Navarro APRN, CNP Unavailable [phone] Reason for Referral * Radiology Services (Routine) - Closed Specialty Diagnoses / Procedures Referred By Contac t Referred To Contact Radiology Diagnoses History of chlamydia infection Procedures XR HYSTEROSALPINGOGRAPHY Karen Hale MD [address] [place] [address] Phone: tel: fax: Referral ID Status Reason Start Date Expiration Date Visits Re quested Visits Authorized [id number] Closed 06/16/2022 1 1 Reason for Visit * Radiology Services (Routine) - Closed Specialty Diagnoses / Procedures Referred By Contac t Referred To Contact Radiology Diagnoses History of chlamydia infection Procedures XR HYSTEROSALPINGOGRAPHY Karen Hale MD [address] [place] [address] Phone: tel: fax: Referral ID Status Reason Start Date Expiration Date Visits Re quested Visits Authorized [id number] Closed 06/16/2022 1 1 Encounter Details Date Type Department Care Team (Latest Contact Info) Description 07/17/2022 10:26 AM CDT - 07/17/2022 11:59 PM CDT Hospital Encounter [facility] Diagnostic Radiology [address] [place] [address] Karen Hale MD [address] [place] [address] Discharge Disposition: Discharged to home or Selfcare Social History Tobacco Use Types Packs/Day Years Used Date Smoking Tobacco: Former Cigarettes Q uit: 09/13/2020 Smokeless Tobacco: Never Alcohol Use Standard Drinks/Week Comments No 0 (1 standard drink = 0.6 oz pur e alcohol) Comments No Sex and Gender Information Value Date Recorded Sex Assigned at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 Legal Sex Female 11:35 AM FAMILY LIFE COUNSELOR Gender Identity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 Sexual Orientation [...] mg by mouth. 12/30/2017 ergocalciferol (VITAMIN D) 19696 UNIT Capsule ergocalciferol (vitamin D2) 50,000 unit capsule 07/23/2018 escitalopram (LEXAPRO) 10 MG Tablet Take 10 mg by mouth daily. fluticasone (FLONASE) 50 MCG/ACT Suspension fluticasone propionate 50 mcg/actuation nasal spray,suspension gabapentin (NEURONTIN) 300 MG Capsule Take 2 Capsules by mouth nightly. 05/14/2021 HYDROcodone-acet aminophen (NORCO) 5-325 MG Tablet Take 2 Tabs by mouth. 09/28/2018 ondansetron (ZOFRAN-ODT) 4 MG TABLET DISPERSIBLE Take 1 Tab by mouth every 6 hours as needed for Nausea - 1st line. 5 Tab 10/08/2018 MV-Min-Fe Fum-FA-DHA ( 1) 30-0.975-200 MG Capsule 28 mg iron-800 mcg tablet zolpidem (AMBIEN) 5 MG TabletIndication s:Primary insomnia Take 1 Tablet by mouth nightly as needed for Sleep. 30 Tablet 05/15/2021 metFORMIN (GLUCOPHAGE) 500 MG Tablet metformin 500 mg tablet Take 1 tablet twice a day by oral route. 11/23/19 documented as of this encounter Plan of Treatment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 documented as of this encounter Procedures Procedure Name Priority Date/Time Associated Diagnosis Comments XR HYSTEROSALPINGOGRAPHY Routine 023 11:56 AM CDT History of chlamydia infection UR TEST QUAL STAT 3 11:12 AM CDT History of chlamydia infection documented in this encounter Results * XR HYSTEROSALPINGOGRAPHY (07/17/2022 [...] PM T: ??07/17/2022 2:52 PM Report ID: [id number] Reading Location: ??[id number] Procedure Note James Hathaway MD - 07/17/2022 [...] signed by James MARTINEZ: JUAN Report ID: [id number] Reading Location: [id number] IMPRESSION: Normal hysterosalpingogram. Bilateral patent fallopian tubes. Karen Hale MD IMG FLUOROSCOPY ORDERABLES Fi nal Result * Ur Test Qual (07/17/2022 11:12 AM CDT) PREG TEST,MONOCLONA L Negative 07/17/2022 11:22 AM CDT [facility] Urine Non-Phlebotomy Collection / Unknown 07/17/2022 11:12 AM CDT 07/17/2022 11:14 AM CDT us Karen Hale MD URINE ORDERABLES Final Result [facility] [address] [place] [address] documented in this encounter Visit Diagnoses Diagnosis History of chlamydia infection- Primary Personal history of other infectious and parasitic disease documented in this encounter Administered Medications Inactive Administered Medications - up to 3 most recent administrations Medication Order MAR Action Action Date Dose Rate Site iopamidol (ISOVUE-250) 51 % injection 100 mL 100 mL, Other, ONCE, 1 dose, On Kelly 07/17/22 at 1200 Given 07/17/2022 11:52 AM CDT 20 mL documented in this encounter Care Teams Disability Case Manager Relationship Specialty Start Date End Date Jessica Navarro APRN, GUITAR TECHNICIAN [address] [place] [address] PCP - General Family Medicine 01/16/18 Jessica Navarro APRN, GUITAR TECHNICIAN [address] [place] [address] Family Medicine 01/16/18 documented as of this encounter
--- OUTSIDE RECORDS SUMMARY | 2024-04-14 18:29 | XMS_ITS | Encounter Summary ---
Author Organization [facility] Address [address] [place] [address] Phone Care Team Providers Care Telecommunicator Name Role Phone Jessica Navarro APRN, CNP Primary Care Provider [phone] Jessica Navarro APRN, CNP Unavailable [phone] Reason for Referral * Other (Routine) - Closed Specialty Diagnoses / Procedures Referred By Contdavid t Referred To Contact Neurology Diagnoses Anesthesia of skin Procedures EMG Jessica Navarro APRN, CNP [address] [place] [address] Phone: tel: fax: Referral ID Status Reason Start Date Expiration Date Visits Re quested Visits Authorized [id number] Closed 05/30/2022 1 1 UARD LOOM CARPET WEAVER Encounter Details Date Type Department Care Team (Late st Contact Info) Description 05/30/2022 Transcribe Orders [facility] Central Scheduling 1 [place] [address] Jessica Navarro APRN, CNP [address] [place] [address] Anesthesia of skin (Primary Dx) Social History Tobacco Use Types Packs/Day Years Used Date Smoking Tobacco: Former Cigarettes Q uit: 09/13/2020 Smokeless Tobacco: Never Alcohol Use Standard Drinks/Week Comments No 0 (1 standard drink = 0.6 oz pur e alcohol) Comments No Sex and Gender Information Value Date Recorded Sex Assigned at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 Legal Sex Female 11:35 AM JACQUARD LOOM CARPET WEAVER Gender Identity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 Sexual Orientation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 COVID-19 Exposure Response Date Recorded In the last 10 days, have yo u been in contact with someone who was confirmed or suspected to have Coronavirus/COVID-19? No / Unsure 05/23/2022 1:49 PM JACQUARD LOOM CARPET WEAVER documented as of this encounter Plan of Treatment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 documented as of this encounter Results * EMG (06/18/2022 12:00 AM JACQUARD LOOM CARPET WEAVER) 06/18/2022 Jessica Navarro APRN, CNP NEUROLOGY ORDERABLES V2 F inal Result SCAN documented in this encounter Visit Diagnoses Diagnosis Anesthesia of skin- Primary Disturbance of skin sensation documented in this encounter Care Teams Telecommunicator Relationship Specialty Start Date End Date Jessica Navarro APRN, CNP [address] [place] [address] PCP - General Family Medicine 01/16/18 Jessica Navarro APRN, CNP [address] [place] [address] Family Medicine 01/16/18 documented as of this encounter
--- OUTSIDE RECORDS SUMMARY | 2024-04-14 18:29 | XMS_ITS | Encounter Summary ---
Author Organization [facility] Address [address] [place] [address] Phone Care Team Providers Care Carpenter Rough Name Role Phone Jessica Navarro APRN, CNP Primary Care Provider [phone] Jessica Navarro APRN, CNP Unavailable [phone] Reason for Referral * Radiology Services (Routine) - Closed Specialty Diagnoses / Procedures Referred By Jonas t Referred To Contact Radiology Diagnoses Pain in right wrist Procedures XR WRIST 3 OR MORE VIEWS RIGHT Jessica Navarro APRN, CNP [address] [place] [address] Phone: tel: fax: Referral ID Status Reason Start Date Expiration Date Visits Re quested Visits Authorized [id number] Closed 05/23/2022 1 1 FING AND SCHEDULING COORDINATOR Encounter Details Date Type Department Care Team (Late st Contact Info) Description 05/23/2022 Transcribe Orders [facility] Central Scheduling 1 [place] [address] Jessica Navarro APRN, CNP [address] [place] [address] Pain in right wrist (Primary Dx) Social History Tobacco Use Types Packs/Day Years Used Date Smoking Tobacco: Former Cigarettes Q uit: 09/13/2020 Smokeless Tobacco: Never Alcohol Use Standard Drinks/Week Comments No 0 (1 standard drink = 0.6 oz pur e alcohol) Comments No Sex and Gender Information Value Date Recorded Sex Assigned at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 Legal Sex Female 11:35 AM STAFFING AND SCHEDULING COORDINATOR Gender Identity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 Sexual Orientation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 documented as of this encounter Plan of Treatment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 documented as of this encounter Results * XR WRIST 3 OR MORE VIEWS RIGHT (05/23/2022 2:12 PM STAFFING AND SCHEDULING COORDINATOR) Anatomical Region Laterality Modality UPPER EXTREMITY, wrist Right Digital R adiography 05/24/2022 8:26 AM STAFFING AND SCHEDULING COORDINATOR Impressions 05/24/2022 8:29 AM STAFFING AND SCHEDULING COORDINATOR IMPRESSION: ?? No acute osseous abnormality. Narrative 05/24/2022 8:29 AM STAFFING AND SCHEDULING COORDINATOR EXAM DESCRIPTION: ?? XR WRIST 3 OR MORE VIEWS RIGHT REASON FOR STUDY: ?? Right wrist pain x2 years TECHNIQUE: ?? 3 ??radiographic views acquired of the right wrist. COMPARISON: ?? None FINDINGS: Mild ulnar negative variance. ??No acute fracture seen. ?? Joint spaces appear normal. ??No gross soft tissue abnormality. THIS IS AN ELECTRONICALLY VERIFIED FINAL REPORT 05/24/2022 8:26 AM - Electronically signed by ??Yefri Goodman M.D. AG: AG D: ??05/24/2022 8:26 AM T: ??05/24/2022 8:26 AM Report ID: [id number] Reading Location: ??[id number] Procedure Note Yefri Goodman MD - 05/24/2022 EXAM DESCRIPTION: XR WRIST 3 OR MORE VIEWS RIGHT REASON FOR STUDY: Right wrist pain x2 years TECHNIQUE: 3 radiographic views acquired of the right wrist. COMPARISON: None FINDINGS: Mild ulnar negative variance. No acute fracture seen. Joint spaces appear normal. No gross soft tissue abnormality. THIS IS AN ELECTRONICALLY VERIFIED FINAL REPORT 05/24/2022 8:26 AM - Electronically signed by Yefri Goodman M.D. AG: AG Report ID: [id number] Reading Location: [id number] IMPRESSION: No acute osseous abnormality. Jessica Navarro APRN, CNP IMG DIAGNOSTIC ORDERABLES Final Result documented in this encounter Visit Diagnoses Diagnosis Pain in right wrist- Primary Pain in joint, forearm Pain in right wrist Pain in joint, forearm documented in this encounter Care Teams Carpenter Rough Relationship Specialty Start Date End Date Jessica Navarro APRN, CNP [address] [place], [place] [id number] PCP - General Family Medicine 01/16/18 Jessica Navarro APRN, CNP [address] [place] [address] Family Medicine 01/16/18 documented as of this encounter
--- OUTSIDE RECORDS SUMMARY | 2024-04-14 18:29 | XMS_ITS | Encounter Summary ---
Author Organization [facility] Address [address] [place] [address] Phone Care Team Providers Care Chief Commercial Officer Name Role Phone Jessica Navarro APRN, CNP Primary Care Provider [phone] Jessica Navarro APRN, CNP Unavailable [phone] Encounter Details Date Type Department Care Team (Late st Contact Info) Description 06/05/2021 Transcribe Orders [facility] Sleep Lab 1 [place] [address] Chance Walker MD [address] [place] [address] Obstructive sleep apnea (Primary Dx) Social History Tobacco Use Types Packs/Day Years Used Date Smoking Tobacco: Former Cigarettes Q uit: 09/13/2020 Smokeless Tobacco: Never Alcohol Use Standard Drinks/Week Comments No 0 (1 standard drink = 0.6 oz pur e alcohol) Comments No Sex and Gender Information Value Date Recorded Sex Assigned at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 Legal Sex Female 11:35 AM ELECTRIC GAS APPLIANCES DEMONSTRATOR Gender Identity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 Sexual Orientation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 COVID-19 Exposure Response Date Recorded In the last month, have you been in contact with someone who was confirmed or suspected to have Coronavirus / COVID-19? No / Unsure 05/15/2021 10:01 AM ELECTRIC GAS APPLIANCES DEMONSTRATOR documented as of this encounter Plan of Treatment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 documented as of this encounter Results * SPLIT NIGHT PSG (06/06/2021) us Chance Walker MD SLEEP CENTER ORDERABLES Final Re sult documented in this encounter Visit Diagnoses Diagnosis Obstructive sleep apnea- Primary Obstructive sleep apnea (adult) (pediatric) documented in this encounter Care Teams Chief Commercial Officer Relationship Specialty Start Date End Date Jessica Navarro APRN, CNP [address] [place] [address] PCP - General Family Medicine 01/16/18 Jessica Navarro APRN, CNP [address] [place] [address] Family Medicine 01/16/18 documented as of this encounter
--- OUTSIDE RECORDS SUMMARY | 2024-04-14 18:29 | XMS_ITS | Encounter Summary ---
Author Organization [facility] Care Team Providers Care Repair Operator Name Role Phone Jessica Navarro APRN, CNP Primary Care Provider [phone] Jessica Navarro APRN, CNP Unavailable [phone] Encounter Details Date Type Department Care Team (Latest Contact Info) Description 02/21/2021 Travel Social History Tobacco Use Types Packs/Day Years Used Date Smoking Tobacco: Former Cigarettes Q uit: 09/13/2020 Smokeless Tobacco: Never Alcohol Use Standard Drinks/Week Comments No 0 (1 standard drink = 0.6 oz pur e alcohol) Comments No Sex and Gender Information Value Date Recorded Sex Assigned at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 Legal Sex Female 11:35 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 No / Unsure 02/21/2021 9:10 AM CDT documented as of this encounter Plan of Treatment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 documented as of this encounter Visit Diagnoses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documented in this encounter Care Teams Repair Operator Relationship Specialty Start Date End Date Jessica Navarro APRN, CNP [address] [place] [address] PCP - General Family Medicine 01/16/18 Jessica Navarro APRN, CNP [address] [place] [address] Family Medicine 01/16/18 documented as of this encounter
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
--- OUTSIDE RECORDS SUMMARY | 2024-04-14 18:29 | XMS_ITS | Encounter Summary ---
Author Organization [employer] Care Team Providers Care Engineering Technical Analyst Name Role Phone Jessica Navarro APRN, CNP Primary Care Provider [phone] Jessica Navarro APRN, CNP Unavailable [phone] Encounter Details Date Type Department Care Team (Latest Contact Info) Description 02/13/2021 Travel Social History Tobacco Use Types Packs/Day Years Used Date Smoking Tobacco: Former Cigarettes Q uit: 09/13/2020 Smokeless Tobacco: Never Alcohol Use Standard Drinks/Week Comments No 0 (1 standard drink = 0.6 oz pur e alcohol) Comments No Sex and Gender Information Value Date Recorded Sex Assigned at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 Legal Sex Female 11:35 AM CRYPTOGRAPHER Gender Identity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 Sexual Orientation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 COVID-19 Exposure Response Date Recorded In the last month, have you been in contact with someone who was confirmed or suspected to have Coronavirus / COVID-19? No / Unsure 02/13/2021 9:52 AM CDT documented as of this encounter Plan of Treatment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 documented as of this encounter Visit Diagnoses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documented in this encounter Care Teams Engineering Technical Analyst Relationship Specialty Start Date End Date Jessica Navarro APRN, CNP [address] [place] [address] PCP - General Family Medicine 01/16/18 Jessica Navarro APRN, CNP [address] [place] [address] Family Medicine 01/16/18 documented as of this encounter
--- OUTSIDE RECORDS SUMMARY | 2024-04-14 18:29 | XMS_ITS | Encounter Summary ---
Author Organization [facility] Address [address] [place] [address] Phone Care Team Providers Care Marine Firer Name Role Phone Jessica Navarro APRN, CNP Primary Care Provider [phone] Jessica Navarro APRN, CNP Unavailable [phone] Encounter Details Date Type Department Care Team (Late st Contact Info) Description 06/03/2021 Transcribe Orders [facility] Sleep Lab [address] [place] [address] Chance Walker MD [address] [place] [address] Obstructive sleep apnea (Primary Dx) Social History Tobacco Use Types Packs/Day Years Used Date Smoking Tobacco: Former Cigarettes Q uit: 09/13/2020 Smokeless Tobacco: Never Alcohol Use Standard Drinks/Week Comments No 0 (1 standard drink = 0.6 oz pur e alcohol) Comments No Sex and Gender Information Value Date Recorded Sex Assigned at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 Legal Sex Female 11:35 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 No / Unsure 05/15/2021 10:01 AM MARINE OPERATIONS COORDINATOR documented as of this encounter Plan of Treatment Scheduled Orders Name Type Priority Associated Diagnoses Orde r Schedule [facility] Routine Obstructive sleep apnea Expected: 06/03/2021, Expires: 06/03/2022 documented as of this encounter Visit Diagnoses Diagnosis Obstructive sleep apnea- Primary Obstructive sleep apnea (adult) (pediatric) documented in this encounter Care Teams Marine Firer Relationship Specialty Start Date End Date Jessica Navarro APRN, CNP [address] [place], [place] [id number] PCP - General Family Medicine 01/16/18 Jessica Navarro APRN, CNP [address] [place] [address] Family Medicine 01/16/18 documented as of this encounter
--- OUTSIDE RECORDS SUMMARY | 2024-04-14 18:29 | XMS_ITS | Encounter Summary ---
Author Organization [facility] Address [address] [place] [address] Phone Care Team Providers Care Dairy Farmworker Name Role Phone Jessica Navarro APRN, CNP Primary Care Provider [phone] Jessica Navarro APRN, CNP Unavailable [phone] Reason for Visit * Consult, Test & Initiate Treatment (Routine) - Closed Specialty Diagnoses / Procedures Referred By Jonas reeves Referred To Contact Sleep Center Diagnoses ELLI (obstructive sleep apnea) Chance Walker MD [address] [place] [address] Phone: tel: fax: [facility] Sleep [facility] 1 [place] [address] Phone: tel: fax: Referral ID Status Reason Start Date Expiration Date Visits Re quested Visits Authorized [id number] Closed 02/13/2021 1 1 Encounter Details Date Type Department Care Team (Latest Contact Info) Description 02/20/2021 1:00 PM CDT Outpatient Clinic Visit [facility] Sleep Lab 1 [place] [address] Chance Walker MD [address] [place] [address] ELLI (obstructive sleep apnea); Obstructive sleep apnea Discharge Disposition: Discharged to home or Selfcare Social History Tobacco Use Types Packs/Day Years Used Date Smoking Tobacco: Former Cigarettes Q uit: 09/13/2020 Smokeless Tobacco: Never Alcohol Use Standard Drinks/Week Comments No 0 (1 standard drink = 0.6 oz pur e alcohol) Comments No Sex and Gender Information Value Date Recorded Sex Assigned at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 No / Unsure 02/21/2021 9:10 AM CDT documented as of this encounter Procedure Notes * Chance Walker MD - 02/20/2021 1:00 PM CDT HOME SLEEP APNEA STUDY Lilli Santos 02/20/2021 BRIEF HISTORY: Ms. Lilli Santos is a 25 year old female (1995), referred for an Unattended Home Sleep ApneaTest (HSAT) to screen for obstructive sleep apnea syndrome. She has a history significant for obesity and obstructive sleep apnea. Her neck size is 14.0 inches and her Pacific score was reported as 21. Her current height is 63.0 in., weight is 185.0 lbs. and has a BMI of 32.8 lb/in2. She was referred by Dr. Chance Walker. SUMMARY: ?? No evidence of clinically significant obstructive sleep apnea (G47.33) with a RDI of 3.1 events per hour associated with lowest oxygen desaturation of 89%. ?? SaO2 levels below 90% for 0.0% of total recording time (monitoring time). ?? Supine RDI=3.1/hr, non-supine RDI=3.17/hr ?? Pulse averaged 81.1 bpm. RECOMMENDATIONS: ??? Given limitation of home sleep testing, consider further evaluation with full polysomnography and daytime sleepiness testing if clinically indicated due to sleepiness complaint. ??? Aggressive treatment for sleep apnea does not appear necessary at this time. ??? Patient should be counseled on sleep hygiene such as a routine schedule and allowing for a sufficient amount of sleep on a regular basis. ??? Due to the lack of EEG monitoring in Home Sleep Apnea Testing, these results may underestimate the severity of obstructive sleep apnea. ??? A negative home sleep test does not rule out the presence of sleep apnea or any other sleep disorder. METHODOLOGY: Unattended Home Sleep Apnea Test: Nocturnal HSAT was performed on 02/20/2021 using a Type III device with recording parameters which include thoracic respiratory effort (single RIP belt), oxygen saturation, snoring and pulse rate (pulse oximeter), body position, and nasal/oral airflow and snoring (pressure transducer). Based on the review of the recorded signals the study quality is adequate for interpretation. Data were interpreted following standard AASM (rule 1B) criteria utilizing the 30% reduction in airflow resulting in at least a 4% desaturation definition for hypopnea. RESPIRATORY EVENTS SUMMARY Total recording time was 459.1 minutes. Respiratory monitoring revealed 20 obstructive apneas, 0 mixed apneas, 0 central apneas and 4 partial upper airway obstructions (obstructive hypopneas). Resulting in a respiratory disturbance Index (RDI=PIO) of 3.1 abnormal breathing events per hour of recording time. The Patient was supine for 249.3 minutes of the recording with a supine RDI of 3.1; non-supine for 208.30 minutes of the recording with a non-supine RDI of 3.17. Recording noted steady snores. SaO2 SUMMARY Mean SaO2= 94% Lowest SaO2=89% 90-100%= 99.59% 80-89% = 0.00% 70-79% = 0.00% 60-69% =0.00% 50-59% =0.00% <50% =0.0% Cardiac recording showed an average heart rate of 81.1 beats per minute, a max heart rate of 118 beats per minute and a minimum heart rate of 65 beats per minute. PATIENT ASSESSMENT: on the post sleep morning questionnaire, the patient felt her sleep was very similar to her usual night sleep at home. Thank you for this referral and please call with any questions or concerns. Chance Walker MD02/27/2021 Cosigned by Sebastian Dowling MD at 02/27/2021 10:11 PM CDT Associated attestation - Sebastian Dowling MD - 02/27/2021 10:11 PM CDT I have read the Sleep Report for this patient and attest that I am in agreement with it. documented in this encounter Plan of Treatment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 documented as of this encounter Procedures Procedure Name Priority Date/Time Associated Diagnosis Comments HOME SLEEP STUDY UNATTENDED TYPE III Routine 02/21/2021 Obstructive sleep apnea documented in this encounter Results * HOME SLEEP STUDY UNATTENDED TYPE III (02/21/2021) us Chance Walker MD SLEEP CENTER ORDERABLES Final Re sult documented in this encounter Visit Diagnoses Diagnosis ELLI (obstructive sleep apnea) Obstructive sleep apnea (adult) (pediatric) Obstructive sleep apnea Obstructive sleep apnea (adult) (pediatric) documented in this encounter Care Teams Dairy Farmworker Relationship Specialty Start Date End Date Jessica Navarro APRN, TALIA [address] [place] [address] PCP - General Family Medicine 01/16/18 Jessica Navarro APRN, CNP [address] [place] [address] Family Medicine 01/16/18 documented as of this encounter
--- OUTSIDE RECORDS SUMMARY | 2024-04-14 18:29 | XMS_ITS | Encounter Summary ---
Author Organization [facility] Address [address] [place] [address] Phone Care Team Providers Care Insurance Instructor Name Role Phone Jessica Navarro APRN, CNP Primary Care Provider [phone] Jessica Navarro APRN, CNP Unavailable [phone] Reason for Visit * Reason Onset Date Comments Results 03/01/2021 sleep study Encounter Details Date Type Department Care Team ([facility] st Contact Info) Description 03/01/2021 Telephone [facility] - Pulmonology & Sleep Medicine [facility] [address] [place] [address] Chance Walker MD [address] [place] [address] Results (sleep study ) Social History Tobacco Use Types Packs/Day Years Used Date Smoking Tobacco: Former Cigarettes Q uit: 09/13/2020 Smokeless Tobacco: Never Alcohol Use Standard Drinks/Week Comments No 0 (1 standard drink = 0.6 oz pur e alcohol) Comments No Sex and Gender Information Value Date Recorded Sex Assigned at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 No / Unsure 02/21/2021 9:10 AM CDT documented as of this encounter Miscellaneous Notes * Telephone Encounter - Char Longo RN - 03/01/2021 8:16 AM CDT Patient is aware and verbalizes understanding. * Telephone Encounter - Char Longo RN - 03/01/2021 8:14 AM CDT SUMMARY: ?? No evidence of clinically significant obstructive sleep apnea (G47.33) with a RDI of 3.1 events per hour associated with lowest oxygen desaturation of 89%. ?? SaO2 levels below 90% for 0.0% of total recording time (monitoring time). ?? Supine RDI=3.1/hr, non-supine RDI=3.17/hr ?? Pulse averaged 81.1 bpm. ?? RECOMMENDATIONS:? Given limitation of home sleep testing, consider further evaluation with full polysomnography and daytime sleepiness testing if clinically indicated due to sleepiness complaint. ?? Aggressive treatment for sleep apnea does not appear necessary at this time. ?? Patient should be counseled on sleep hygiene such as a routine schedule and allowing for a sufficient amount of sleep on a regular basis. ?? Due to the lack of EEG monitoring in Home Sleep Apnea Testing, these results may underestimate the severity of obstructive sleep apnea. ?? A negative home sleep test does not rule out the presence of sleep apnea or any other sleep disorder. ?? documented in this encounter Plan of Treatment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 documented as of this encounter Visit Diagnoses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documented in this encounter Care Teams Insurance Instructor Relationship Specialty Start Date End Date Jessica Navarro APRN, RADIOLOGY ASSISTANT [address] [place] [address] PCP - General Family Medicine 01/16/18 Jessica Navarro APRN, RADIOLOGY ASSISTANT [address] [place] [address] Family Medicine 01/16/18 documented as of this encounter
--- OUTSIDE RECORDS SUMMARY | 2024-04-14 18:29 | XMS_ITS | Encounter Summary ---
Author Organization [facility] Address [address] [place] [address] Phone Care Team Providers Care Energy And Sustainability Manager Name Role Phone Jessica Navarro APRN, CNP Primary Care Provider [phone] Jessica Navarro APRN, CNP Unavailable [phone] Reason for Referral * Radiology Services (Routine) - Closed Specialty Diagnoses / Procedures Referred By Contac t Referred To Contact Radiology Diagnoses Pain in right wrist Procedures XR WRIST 3 OR MORE VIEWS RIGHT Jessica Navarro APRN, CNP [address] [place] [address] Phone: tel: fax: Referral ID Status Reason Start Date Expiration Date Visits Re quested Visits Authorized [id number] Closed 05/23/2022 1 1 PATTERN COATER Reason for Visit * Radiology Services (Routine) - Closed Specialty Diagnoses / Procedures Referred By Contac t Referred To Contact Radiology Diagnoses Pain in right wrist Procedures XR WRIST 3 OR MORE VIEWS RIGHT Jessica Navarro APRN, CNP [address] [place] [address] Phone: tel: fax: Referral ID Status Reason Start Date Expiration Date Visits Re quested Visits Authorized [id number] Closed 05/23/2022 1 1 Encounter Details Date Type Department Care Team (Latest Contact Info) Description 05/23/2022 2:00 PM WAX PATTERN COATER - 05/23/2022 11:59 PM WAX PATTERN COATER Hospital Encounter [facility] Diagnostic Radiology 1 [place] [id number] Jessica Navarro APRN, SHOULDER BONER [address] [place] [address] Discharge Disposition: Discharged to home or Selfcare Social History Tobacco Use Types Packs/Day Years Used Date Smoking Tobacco: Former Cigarettes Q uit: 09/13/2020 Smokeless Tobacco: Never Alcohol Use Standard Drinks/Week Comments No 0 (1 standard drink = 0.6 oz pur e alcohol) Comments No Sex and Gender Information Value Date Recorded Sex Assigned at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 Legal Sex Female 11:35 AM WAX PATTERN COATER Gender Identity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 Sexual Orientation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 COVID-19 Exposure Response Date Recorded In the last 10 days, have yo u been in contact with someone who was confirmed or suspected to have Coronavirus/COVID-19? No / Unsure 05/23/2022 1:49 PM WAX PATTERN COATER documented as of this encounter Medications at Time of Discharge albuterol (PROVENTIL HFA, VENTOLIN HFA) 108 (90 BASE) MCG/ACT Aerosol Solution take 2 Puffs by inhalation every 6 hours as needed for Wheezing. 1 Inhaler 0 05/19/2016 cyclobenzaprine (FLEXERIL) 10 MG Tablet Take 10 mg by mouth. 12/30/2017 ergocalciferol (VITAMIN D) 72398 UNIT Capsule ergocalciferol (vitamin D2) 50,000 unit [...] twice a day by oral route. 11/23/19 23 documented as of this encounter Plan of Treatment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 documented as of this encounter Procedures Procedure Name Priority Date/Time Associated Diagnosis Comments XR WRIST 3 OR MORE VIEWS RIGHT Routine 05/23/2022 2:12 PM WAX PATTERN COATER Pain in right wrist documented in this encounter Results * XR WRIST 3 OR MORE VIEWS RIGHT (05/23/2022 2:12 PM WAX PATTERN COATER) Anatomical Region Laterality Modality UPPER EXTREMITY, wrist Right Digital R adiography 05/24/2022 8:26 AM WAX PATTERN COATER Impressions 05/24/2022 8:29 AM WAX PATTERN COATER IMPRESSION: ?? No acute osseous abnormality. Narrative 05/24/2022 8:29 AM WAX PATTERN COATER EXAM DESCRIPTION: ?? XR WRIST 3 OR [...] Electronically signed by ??Yefri Goodman M.D. AG: KECIA D: ??05/24/2022 8:26 AM T: ??05/24/2022 8:26 AM Report ID: [id number] Reading Location: ??[id number] Procedure Note Yefri Goodman MD - 05/24/2022 [...] Electronically signed by Yefri Goodman M.D. AG: KECIA Report ID: [id number] Reading Location: [place] [address] IMPRESSION: No acute osseous abnormality. Jessica Navarro APRN, CNP [facility] DIAGNOSTIC ORDERABLES Final Result documented in this encounter Visit Diagnoses Diagnosis Pain in right wrist Pain in joint, forearm documented in this encounter Care Teams Energy And Sustainability Manager Relationship Specialty Start Date End Date Jessica Navarro APRN, CNP [address] [place] [address] PCP - General Family Medicine 01/16/18 Jessica Navarro APRN, CNP [address] [place] [address] Family Medicine 01/16/18 documented as of this encounter
--- OUTSIDE RECORDS SUMMARY | 2024-04-14 18:29 | XMS_ITS | Encounter Summary ---
Author Organization [facility] Care Team Providers Care Despatching And Receiving Clerk Name Role Phone Jessica Navarro APRN, CNP Primary Care Provider [phone] Jessica Navarro APRN, CNP Unavailable [phone] Encounter Details Date Type Department Care Team (Latest Contact Info) Description 06/05/2021 Travel Social History Tobacco Use Types Packs/Day Years Used Date Smoking Tobacco: Former Cigarettes Q uit: 09/13/2020 Smokeless Tobacco: Never Alcohol Use Standard Drinks/Week Comments No 0 (1 standard drink = 0.6 oz pur e alcohol) Comments No Sex and Gender Information Value Date Recorded Sex Assigned at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 Legal Sex Female 11:35 AM POWDERMAN Gender Identity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 Sexual Orientation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 COVID-19 Exposure Response Date Recorded In the last month, have you been in contact with someone who was confirmed or suspected to have Coronavirus / COVID-19? No / Unsure 06/05/2021 7:03 PM POWDERMAN documented as of this encounter Plan of Treatment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 documented as of this encounter Visit Diagnoses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documented in this encounter Care Teams Despatching And Receiving Clerk Relationship Specialty Start Date End Date Jessica Navarro APRN, CNP [address] [place] [address] PCP - General Family Medicine 01/16/18 Jessica Navarro APRN, CNP [address] [place] [address] Family Medicine 01/16/18 documented as of this encounter
--- OUTSIDE RECORDS SUMMARY | 2024-04-14 18:29 | XMS_ITS | Encounter Summary ---
Author Organization [facility] Care Team Providers Care Labor Contract Analyst Name Role Phone Jessica Navarro APRN, CNP Primary Care Provider [phone] Jessica Navarro APRN, CNP Unavailable [phone] Encounter Details Date Type Department Care Team (Latest Contact Info) Description 05/23/2022 Travel Social History Tobacco Use Types Packs/Day Years Used Date Smoking Tobacco: Former Cigarettes Q uit: 09/13/2020 Smokeless Tobacco: Never Alcohol Use Standard Drinks/Week Comments No 0 (1 standard drink = 0.6 oz pur e alcohol) Comments No Sex and Gender Information Value Date Recorded Sex Assigned at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 Legal Sex Female 11:35 AM ASSISTANT VICE PRESIDENT Gender Identity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 Sexual Orientation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 COVID-19 Exposure Response Date Recorded In the last 10 days, have yo u been in contact with someone who was confirmed or suspected to have Coronavirus/COVID-19? No / Unsure 05/23/2022 1:49 PM ASSISTANT VICE PRESIDENT documented as of this encounter Plan of Treatment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 documented as of this encounter Visit Diagnoses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documented in this encounter Care Teams Labor Contract Analyst Relationship Specialty Start Date End Date Jessica Navarro APRN, CNP [address] [place] [address] PCP - General Family Medicine 01/16/18 Jessica Navarro APRN, CNP [address] [place] [address] Family Medicine 01/16/18 documented as of this encounter
--- OUTSIDE RECORDS SUMMARY | 2024-04-14 18:29 | XMS_ITS | Encounter Summary ---
Author Organization [facility] Address [address] [place] [address] Phone Care Team Providers Care Manager Community Name Role Phone Jessica Navarro APRN, CNP Primary Care Provider [phone] Jessica Navarro APRN, CNP Unavailable [phone] Reason for Visit * Reason Comments High Blood Sugar Encounter Details Date Type Department Care Team (Late st Contact Info) Description 04/17/2022 9:09 PM LEAD RADIATION THERAPIST - 04/18/2022 12:16 AM [facility] Emergency [facility] [address] [place] [address] Nelson Pearson MD [address] [place] [address] Acute cystitis without hematuria Discharge Disposition: Discharged to home or Selfcare [...] on file Legal Sex Female 11:35 AM LEAD RADIATION THERAPIST Gender Identity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 Sexual Orientation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 COVID-19 Exposure Response Date Recorded In the last 10 days, have yo u been in contact with someone who was confirmed or suspected to have Coronavirus/COVID-19? No / Unsure 04/17/2022 9:02 PM LEAD RADIATION THERAPIST documented as of this encounter Last Filed Vital Signs Vital Sign Reading Time Taken Comments Blood Pressure 93/59 04/18/2022 12:00 AM LEAD RADIATION THERAPIST Pulse 82 04/18/2022 12:00 AM LEAD RADIATION THERAPIST Temperature 37.1 ??C (98.7 ??F) 04/17/2022 9:02 PM CS T Respiratory Rate 21 04/18/2022 12:00 AM LEAD RADIATION THERAPIST Oxygen Saturation 99% 04/18/2022 12:00 AM LEAD RADIATION THERAPIST Inhaled Oxygen Concentration - - Weight 81.6 kg (180 lb) 04/17/2022 9:02 PM LEAD RADIATION THERAPIST Height 160 cm (5' 3 ) 04/17/2022 9:02 PM LEAD RADIATION THERAPIST Body Mass Index 31.89 04/17/2022 9:02 PM LEAD RADIATION THERAPIST documented in this encounter Discharge Instructions * Discharge Instructions* Nelson Pearson MD - 04/18/2022 12:00 AM LEAD RADIATION THERAPIST Begin to take your blood sugar twice a day. Alternate breakfast and dinner on 1 day and the next dolunch and bedtime. Continue this until you see the packaging clerk and document it for the packaging clerk. If possible, do 1 or 2 blood sugar is at 2 or 3 in the morning. This may also assist the end ocrinologist in certain situations. Take the Diflucan when you finish the Keflex for the urinary tract infection RADIATION THERAPIST * Attachments The following attachments cannot be sent through Care Everywhere. * Urinary Tract Infection Adult ([place]) * Hyperglycemia Dnze-is-Nobz ([place]) documented in this encounter Medications at Time of Discharge albuterol (PROVENTIL HFA, VENTOLIN HFA) 108 (90 BASE) MCG/ACT Aerosol Solution take 2 Puffs by inhalation every 6 hours as needed for Wheezing. 1 Inhaler 0 05/19/2016 cyclobenzaprine (FLEXERIL) 10 MG Tablet Take 10 mg by mouth. 12/30/2017 ergocalciferol (VITAMIN D) 12764 UNIT Capsule ergocalciferol (vitamin D2) 50,000 unit [...] as needed for Sleep. 30 Tablet 05/15/2021 cephALEXin (KEFLEX) 500 MG Capsule Take 1 Capsule by mouth 3 times daily for 7 days. 21 Capsule 04/17/2022 04/24/20 22 fluconazole (DIFLUCAN) 150 MG Tablet Take 1 Tablet by mouth once for 1 dose. 1 Tablet 04/18/2022 04/18/20 22 metFORMIN (GLUCOPHAGE) 500 MG Tablet metformin 500 mg tablet Take 1 tablet twice a day by oral route. 11/23/19 23 documented as of this encounter ED Notes * Aleksandra Cao RN - 04/18/2022 12:14 AM CST Patient discharged. Discharge instructions and patient educational material reviewed with patient; questions and concerns addressed; patient verbalizes understanding, using teach back. Patient was given 2 prescriptions. Patient discharged per ambulatory mode with self as responsible alliance party. SL D/C'ed with Arpit cath intact. RADIATION THERAPIST * Aleksandra Cao RN - 04/17/2022 11:24 PM CST Pt medicated per provider orders. Pt educated on intended effects and side effects of medication and verbalized understanding. Pt able to provide teach- back of education. RADIATION THERAPIST * Aleksandra Cao RN - 04/17/2022 11:23 PM CST Pt medicated per provider orders. Pt educated on intended effects and side effects of medication and verbalized understanding. Pt able to provide teach- back of education. RADIATION THERAPIST * Aleksandra Cao RN - 04/17/2022 10:31 PM CST Pt medicated per provider orders. Pt educated on intended effects and side effects of medication and verbalized understanding. Pt able to provide teach- back of education. RADIATION THERAPIST * Aleksandra Cao RN - 04/17/2022 10:10 PM CST Pt medicated per provider orders. Pt educated on intended effects and side effects of medication and verbalized understanding. Pt able to provide teach- back of education. RADIATION THERAPIST * Aleksandra Cao RN - 04/17/2022 9:48 PM CST Pt medicated per provider orders. Pt educated on intended effects and side effects of medication and verbalized understanding. Pt able to provide teach- back of education. RADIATION THERAPIST * Nelson Pearson MD - 04/17/2022 9:33 PM CST Chief Complaint Patient presents with ??? High Blood Sugar Lilli Santos is a 27 y.o. female who presents to the emergency department complaining of elevated blood sugars. Patient states she is been having uncontrolled blood sugars off and on for months. Seemed to get worse over last couple days with symptoms. She is complaining of polyuria polydipsia polyphasia. Patient feels very fatigued. Occurs have been high. She had been unable to control him. She did try some Jardiance but she was taken off of it secondary to a yeast infection. Patient is scheduled to see Endocrinology in April. Symptoms are moderate. They are constant. Nothing she does makes it better or worse. Past medical history: Illnesses: Diabetes Medications: See list does include 15 units of Lantus every evening in 2000 mg of metformin a day Allergies:No known drug allergies Social History: Tobacco: Daily smoker Alcohol: Socially Family History: Mother: Breast cancer hypertension diabetes Father: Diabetes and hypertension This chart was created using a voice recognition program. There maybe grammatical and/or syntax errors that are unintentional. No current facility-administered medications for this encounter. Current Outpatient Medications Medication Sig Dispense Refill ??? albuterol (PROVENTIL HFA, VENTOLIN HFA) 108 (90 BASE) MCG/ACT Aerosol Solution take 2 Puffs by inhalation every 6 hours as needed for Wheezing. 1 Inhaler 0 ??? cephALEXin (KEFLEX) 500 MG Capsule Take 1 Capsule by mouth 3 times daily for 7 days. 21 Capsule0 ??? cyclobenzaprine (FLEXERIL) 10 MG Tablet Take 10 mg by mouth. ??? ergocalciferol (VITAMIN D) 17975 UNIT Capsule ergocalciferol (vitamin D2) 50,000 unit capsule (Patient not taking: Reported on 02/13/2021) ??? escitalopram (LEXAPRO) 10 MG Tablet Take 10 mg by mouth daily. ??? fluconazole (DIFLUCAN) 150 MG Tablet Take 1 Tablet by mouth once for 1 dose. 1 Tablet 0 ??? fluticasone (FLONASE) 50 MCG/ACT Suspension fluticasone [...] Types: Cigarettes Quit date: 09/13/2020 Years since quittin.5 ??? Smokeless tobacco: Never Vaping Use ??? Vaping Use: Never used Substance and Sexual Activity ??? Alcohol use: No ??? Drug use: No ??? Sexual activity: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 Other Topics Concern ???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 Social History Narrative Merged History Encounter BP 112/65 Pulse 90 Temp 98.7 ??F (37.1 ??C) (Tympanic) Resp 16 Ht 5' 3 (1.6 m) Wt 180 lb(81.6 kg) LMP 03/15/2021 SpO2 98% BMI 31.89 kg/m?? Review of Systems Constitutional: Positive for fatigue. Negative for activity change, appetite change, chills, diaphoresis and fever. HENT: Negative for dental problem, rhinorrhea and sore throat. Eyes: Negative for visual disturbance. Respiratory: Negative for cough, chest tightness, shortness of breath and wheezing. Cardiovascular: Negative for chest pain, palpitations and leg swelling. Gastrointestinal: Positive for nausea and vomiting. Negative for abdominal pain, constipation and diarrhea. Endocrine: Positive for polydipsia, polyphagia and polyuria. Genitourinary: Negative for difficulty urinating, flank pain, [...] distress. Appearance: She is well-developed. She is not diaphoretic. HENT: Head: Normocephalic [...] Behavior normal. Thought Content: Thought content normal. Procedures Imaging Results None Labs Reviewed CMP (COMPREHENSIVE METABOLIC PANEL) - Abnormal; Notable for the following components: Result Value SODIUM 133 (*) CHLORIDE 96 (*) GLUCOSE 390 (*) SGOT (AST) 160 (*) SGPT (ALT) 101 (*) ALKALINE PHOSPHATASE 112 (*) All other components within normal limits URINALYSIS REFLEX IF INDICATED BY ABNORMAL RESULTS - Abnormal; Notable for the following components: WBC ESTERASE 500 /uL (*) PROTEIN, RANDOM URINE 15 mg/dL (*) URINE GLUCOSE, QUAL 1000 mg/dL (*) URINE KETONES 50 mg/dL (*) URINE BLOOD 25 /uL (*) WBC (Urine) 51-150 (*) URINE RBC'S 3-5 (*) BACTERIA, URINE Moderate (*) All other components within normal limits POCT GLUCOSE - Abnormal; Notable for the following components: GLUCOSE,BEDSIDE POCT 396 (*) All other components within normal limits POCT GLUCOSE - Abnormal; Notable for the following components: GLUCOSE,BEDSIDE POCT 293 (*) All other components within normal limits POCT GLUCOSE - Abnormal; Notable for the following components: GLUCOSE,BEDSIDE POCT 261 (*) All other components within normal limits CBC WITH AUTO DIFFERENTIAL - Abnormal; Notable for the following components: WBC 12.23 (*) MPV 12.5 (*) ABSOLUTE NEUTROPHILS 8.88 (*) All other components within normal limits CULTURE, URINE COMPLETE BLOOD COUNT (CBC) WITH DIFF Narrative: The following orders were created for panel order CBC w/ Diff. Procedure Abnormality Status --------- ------ CBC with Auto Differential[[id number]] Abnormal Final result Please view results for these tests on the individual orders. POCT URINE HCG () MDM Patient with known diabetes who is having uncontrolled sugars. She is having classical symptoms of hypoglycemia. Will need to make sure she is not in DKA. Will give IV fluids and some insulin. Will get labs. Possible admission to the hospital she is in DKA. If not we will try to correct her down here otherwise she may still require admission. 10 mg IV insulin given Patient with urinary tract infection. Will give her a dose of Rocephin here. We will give a dose of Diflucan now Sugar is now down to about 250. Discussed documenting blood sugars for the packaging clerk appointment, twice a day testing alternating breakfast and dinner with lunch and bedtime Coding Clinical Impression 1. Hyperglycemia due to type 1 diabetes mellitus (HCC) 2. Acute cystitis without hematuria The patient remained stable throughout their ED [...] E.D. were discussed. New Medications: New Prescriptions CEPHALEXIN (KEFLEX) 500 MG CAPSULE Take 1 Capsule by mouth 3 times daily for 7 days. FLUCONAZOLE (DIFLUCAN) 150 MG TABLET Take 1 Tablet by mouth once for 1 dose. I have advised the patient to follow-up with: Jessica Navarro, ESTELITA, STAVE LOG CUT OFF SAW OPERATOR [address] ELIZABETH [address] [place] [id number] In 1 week Dispostion: Discharge RADIATION THERAPIST * Kenny Hardy RN - 04/17/2022 9:07 PM CST Pt to ED with c/o high blood sugar, vomiting, headache, and blurred vision x 2 day. Pt states her sugar has been greater than 500 at home. She takes metformin 2 times a day and 15 units of insulin usually after dinner or at night. VSS. Pt is in no distress noted. Pt BS is 396 in triage. RADIATION THERAPIST documented in this encounter Plan of Treatment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 documented as of this encounter Procedures Procedure Name Priority Date/Time Associated Diagnosis Comments POCT GLUCOSE STAT 04/17/2022 11:50 PM LEAD RADIATION THERAPIST POCT GLUCOSE STAT 04/17/2022 10:14 PM LEAD RADIATION THERAPIST POCT URINE HCG () STAT 04/17/2022 10:06 PM LEAD RADIATION THERAPIST URINALYSIS REFLEX IF INDICATED BY ABNORMAL RESULTS STAT 04/17/2022 9:35 PM LEAD RADIATION THERAPIST CBC WITH AUTO DIFFERENTIAL STAT 04/17/2022 9:35 PM LEAD RADIATION THERAPIST CULTURE, URINE STAT 04/17/2022 9:35 PM LEAD RADIATION THERAPIST CMP (COMPREHENSIVE METABOLIC PANEL) STAT 04/17/2022 9:35 PM LEAD RADIATION THERAPIST COMPLETE BLOOD COUNT (CBC) WITH DIFF STAT 04/17/2022 9:35 PM LEAD RADIATION THERAPIST POCT GLUCOSE STAT 04/17/2022 9:04 PM LEAD RADIATION THERAPIST documented in this encounter Results * (ABNORMAL) POCT Glucose (04/17/2022 11:50 PM LEAD RADIATION THERAPIST) Only the most recent of3 resultswithin the time period is included. [facility] GLUCOSE,BEDSID E POCT 261(H) 70 - 99 mg/dL 04/17/2022 11:56 PM LEAD RADIATION THERAPIST [facility] Comment:Patient RN Performed Blood 04/17/2022 11:5 0 PM LEAD RADIATION THERAPIST 04/17/2022 11:56 PM LEAD RADIATION THERAPIST us None Provider POINT OF CARE TESTING Final Resu lt [facility] [address] [place] [address] * POCT Urine HCG () (04/17/2022 10:06 PM LEAD RADIATION THERAPIST) [facility] POC URINE Negative POC URINE CONTROL Space Controller Pass Urine 04/17/2022 10:0 6 PM LEAD RADIATION THERAPIST us Nelson Pearson MD POINT OF CARE TESTING (MANUAL) Final Result * Culture, Urine (04/17/2022 9:35 PM LEAD RADIATION THERAPIST) CULTURE RESULTS MIXED GROWTH OF ONE OR MORE DISTAL URETHRAL CONTAMINANTS 04/19/2022 3:23 PM LEAD RADIATION THERAPIST [facility] Urine URINE SPECIMEN / Unknown Non-Phlebotomy Collection / Unknown 04/17/2022 9:35 PM LEAD RADIATION THERAPIST 04/17/2022 10:22 PM LEAD RADIATION THERAPIST us Nelson Pearson MD MICROBIOLOGY - GENERAL ORDERABL ES Final Result [facility] [address] [place] [address], [place] * (ABNORMAL) CBC with Auto Differential (04/17/2022 9:35 PM LEAD RADIATION THERAPIST) Pathologist [facility] WBC 12.23(H) 4.00 - 12.00 10(3)/mcL 04/17/2022 9:43 PM LEAD RADIATION THERAPIST [facility] RBC 4.57 3.80 - 5.30 10(6)/[facility] 04/17/2022 9:43 PM LEAD RADIATION THERAPIST [facility] HEMOGLOBIN (HGB) 14.5 12.0 - 15.8 g/dL 04/17/2022 9:43 PM [facility] HEMATOCRIT (HCT) 40.8 36.0 - 47.0 % 04/17/2022 9:43 PM [facility] MCV 89.3 82.0 - 96.0 fL 04/17/2022 9:43 PM [facility] MCH 31.7 26.0 - 34.0 pg 04/17/2022 9:43 PM LEAD RADIATION THERAPIST [facility] MCHC 35.5 31.0 - 36.0 g/dL 04/17/2022 9:43 PM [facility] PLATELET COUNT 208 140 - 440 10(3)/[facility] 04/17/2022 9:43 PM [facility] RDW 11.8 11.8 - 15.5 % 04/17/2022 9:43 PM [facility] MPV 12.5(H) 9.7 - 12.4 fL 04/17/2022 9:43 PM LEAD RADIATION THERAPIST [facility] NEUTROPHILS 72.5 47.0 - 73.0 % 04/17/2022 9:43 PM LEAD RADIATION THERAPIST [facility] LYMPHOCYTES 19.7 18.0 - 42.0 % 04/17/2022 9:43 PM LEAD RADIATION THERAPIST [facility] MONOCYTES 5.2 4.0 - 12.0 % 04/17/2022 9:43 PM LEAD RADIATION THERAPIST [facility] EOSINOPHILS 2.0 0.0 - 5.0 % 04/17/2022 9:43 PM LEAD RADIATION THERAPIST [facility] BASOPHILS 0.6 0.0 - 1.0 % 04/17/2022 9:43 PM [facility] ABSOLUTE NEUTROPHILS 8.88(H) 1.60 - 7.70 10(3)/[facility] 04/17/2022 9:43 PM [facility] ABSOLUTE LYMPHOCYTES 2.41 1.30 - 3.20 10(3)/[facility] 04/17/2022 9:43 PM [facility] ABSOLUTE MONOCYTES 0.63 0.20 - 1.00 10(3)/[facility] 04/17/2022 9:43 PM [facility] ABSOLUTE EOSINOPHIL 0.24 0.00 - 0.40 10(3)/[facility] 04/17/2022 9:43 PM [facility] ABSOLUTE BASOPHILS 0.07 0.00 - 0.10 10(3)/[facility] 04/17/2022 9:43 PM [facility] NRBC PER 100 WBC 0 04/17/20 9:43 PM [facility] Blood Venipuncture / Unknown 04/17/2022 9:35 PM LEAD RADIATION THERAPIST 04/17/2022 9:41 PM LEAD RADIATION THERAPIST us Nelson Pearson MD HEMATOLOGY ORDERABLES Final Res ult [facility] [address] [place] [address] * (ABNORMAL) Urinalysis w/ Reflex (04/17/2022 9:35 PM [facility]) SPECIFIC GRAVITY 1.015 1.003 - 1.030 04/17/2022 10:47 PM [facility] URINE PH 5.0 5.0 - 9.0 04/17/2022 10:47 PM [facility] WBC ESTERASE 500 /uL(A) Negative 04/17/2022 10:47 PM [facility] NITRITE Negative Negative 04/17/2022 10:47 PM [facility] PROTEIN, RANDOM URINE 15 mg/dL(A) Negative 04/17/2022 10:47 PM [facility] URINE GLUCOSE, QUAL 1000 mg/dL(A) Negative 04/17/2022 10:47 PM [facility] URINE KETONES 50 mg/dL(A) Negative 04/17/2022 10:47 PM [facility] UROBILINOGEN Normal Normal mg/dL 04/17/2022 10:47 PM [facility] URINE BLOOD 25 /uL(A) Negative nakita/ul 04/17/2022 10:47 PM [facility] URINALYSIS COLOR Yellow 04/17/20 10:47 PM [facility] URINALYSIS CLARITY Very Cloudy 04/17/2022 10:47 PM [facility] WBC (Urine) 51-150(A) Negative, 0-5 /hpf 04/17/2022 10:47 PM [facility] URINE RBC'S 3-5(A) Negative, 0-2 /hpf 04/17/2022 10:47 PM [facility] EPITHELIAL CELLS Moderate amount /lpf 04/17/2022 10:47 PM [facility] BACTERIA, URINE Moderate(A) Negative /hpf 04/17/2022 10:47 PM [facility] Urine URINE SPECIMEN / Unknown Non-Phlebotomy Collection / Unknown 04/17/2022 9:35 PM LEAD RADIATION THERAPIST 04/17/2022 10:22 PM LEAD RADIATION THERAPIST us Nelson Pearson MD URINE ORDERABLES Final Result [facility] [address] [place] [address] * (ABNORMAL) CMP (04/17/2022 9:35 PM LEAD RADIATION THERAPIST) SODIUM 133(L) 136 - 144 mmol/L 04/17/2022 10:11 PM LEAD RADIATION THERAPIST [facility] POTASSIUM 3.9 3.5 - 5.1 mmol/L 04/17/2022 10:11 PM LEAD RADIATION THERAPIST [facility] CHLORIDE 96(L) 100 - 110 mmol/L 04/17/2022 10:11 PM [facility] CO2, VENOUS 24 22 - 32 mmol/L 04/17/2022 10:11 PM [facility] ANION GAP 16.9 8.0 - 20.0 mmol/L 04/17/2022 10:11 PM [facility] GLUCOSE 390(H) 70 - 99 mg/dL 04/17/2022 10:11 PM [facility] BUN 12 6 - 20 mg/dL 04/17/2022 10:11 PM [facility] CREATININE, BLOOD 0.80 0.60 - 1.10 mg/dL 04/17/2022 10:11 PM [facility] BUN/CREATININE RATIO 15 12 - 20 ratio 04/17/2022 10:11 PM [facility] TOTAL PROTEIN 7.4 6.0 - 8.3 g/dL 04/17/2022 10:11 PM [facility] ALBUMIN 4.5 3.5 - 5.2 g/dL 04/17/2022 10:11 PM [facility] Comment: The colormetric methods used for the determination of Albumin may lead to falsely elevated test results in patients suffering from renal failure or insufficiency due to interference with other proteins. A/G RATIO 1.6 1.0 - 2.0 04/17/2022 10:11 PM LEAD RADIATION THERAPIST [facility] CALCIUM 9.8 8.9 - 10.3 mg/dL 04/17/2022 10:11 PM LEAD RADIATION THERAPIST [facility] T BILI 0.5 <=1.2 mg/dL 04/17/2022 10:11 PM LEAD RADIATION THERAPIST [facility] SGOT (AST) 160(H) <=32 U/L 04/17/2022 10:11 PM LEAD RADIATION THERAPIST [facility] SGPT (ALT) 101(H) <=41 U/L 04/17/2022 10:11 PM [facility] ALKALINE PHOSPHATASE 112(H) 35 - 105 U/L 04/17/2022 10:11 PM LEAD RADIATION THERAPIST [facility] GFR, ESTIMATED >60 >=60 04/17/2022 10:11 PM LEAD RADIATION THERAPIST [facility] Comment: Creatinine Clearance is the preferred criteria for selecting drug dose adjustments in renally impaired patients. ??The GFR is provided as additional pertinent clinical information. GFR is reported in mL/min/1.73 sq m. Calculation based on the Chronic Kidney Disease Epidemiology Collaboration (CKD- EPI) equation refit without adjustment for race. GFR, EST. >60 >=60 022 10:11 PM LEAD RADIATION THERAPIST [facility] GFR, EST. NONAFRICAN >60 >=60 04/17/2022 10:11 PM [facility] Blood Venipuncture / Unknown 04/17/2022 9:35 PM LEAD RADIATION THERAPIST 04/17/2022 9:41 PM LEAD RADIATION THERAPIST us Nelson Pearson MD CHEMISTRY ORDERABLES Final Resu lt [facility] [address] [place] [address] documented in this encounter Visit Diagnoses Diagnosis Hyperglycemia due to type 1 diabetes mellitus (HCC)- Primary Acute cystitis without hematuria Acute cystitis documented in this encounter Administered Medications Inactive Administered Medications - up to 3 most recent administrations Medication Order MAR Action Action Date Dose Rate Site acetaminophen (TYLENOL) tablet 650 mg 650 mg, Oral, ONCE, 1 dose, On Kelly 04/17/22 at 2300, Maximum dose of acetaminophen is 4000 mg from all sources in 24 hours. Given 04/17/2022 10:31 PM LEAD RADIATION THERAPIST 650 mg cefTRIAXone (ROCEPHIN) injection 1 g 1 g, Intravenous, ONCE, 1 dose, On Kelly 04/17/22 at 2330, Indications: PyelonephritisIndications:Py elonephritis Given 04/17/2022 11:23 PM LEAD RADIATION THERAPIST 1 g fluconazole (DIFLUCAN) tablet 200 mg 200 mg, Oral, ONCE, 1 dose, On Kelly 04/17/22 at 2230, Indications: Obstetric and Gynecologic InfectionIndications:Obstetr ic and Gynecologic Infection Given 04/17/2022 10:09 PM LEAD RADIATION THERAPIST 200 mg insulin regular (HumuLIN R;NovoLIN R) 10 Units in insulin syringe 10 Units, Intravenous, ONCE, 1 dose, On Kelly 04/17/22 at 2200, Draw insulin up using the luer tip insulin syringe. Do not dilute. Administer insulin at the port closest to the IV insertion site to decrease risk of insulin binding to the lumen of the tubing. Disconnect tubing if necessary to access port closest to insertion site. Flush with 10 mL Saline after administration. Given 04/17/2022 9:46 PM LEAD RADIATION THERAPIST 10 Units sodium chloride 0.9 % 1,000 mL IV bolus 1,000 mL, Intravenous, ONCE, 1 dose, On Kelly 04/17/22 at 2200, Administer over 0.5 Hours New Bag 04/17/2022 9:46 PM LEAD RADIATION THERAPIST 1,000 mL 2000 mL/hr documented in this encounter Active and Recently Administered Medications Times are shown in LEAD RADIATION THERAPIST. Scheduled Medication Order 04/16/2022 04/17/2022 04/18/2022 acetaminophen (TYLENOL) tablet 650 mg (COMPLETED) 650 mg, Oral, ONCE, 1 dose, On Kelly 04/17/22 at 2300, Maximum dose of acetaminophen is 4000 mg from all sources in 24 hours. 2230 (Given - Provider: Aleksandra Cao RN) cefTRIAXone (ROCEPHIN) injection 1 g (COMPLETED) 1 g, Intravenous, ONCE, 1 dose, On Kelly 04/17/22 at 2330, Indications: Pyelonephritis 3 (Given - Provider: Aleksandra Cao RN) fluconazole (DIFLUCAN) tablet 200 mg (COMPLETED) 200 mg, Oral, ONCE, 1 dose, On Kelly 04/17/22 at 2230, Indications: Obstetric and Gynecologic Infection 2208 (Given - Provider: Aleksandra Cao RN) insulin regular (HumuLIN R;NovoLIN R) 10 Units in insulin syringe (COMPLETED)(Linked Group 1) 10 Units, Intravenous, ONCE, 1 dose, On Kelly 04/17/22 at 2200, Draw insulin up using the luer tip insulin syringe. Do not dilute. Administer insulin at the port closest to the IV insertion site to decrease risk of insulin binding to the lumen of the tubing. Disconnect tubing if necessary to access port closest to insertion site. Flush with 10 mL Saline after administration. 2145 (Given - Provider: Aleksandra Cao RN) sodium chloride 0.9 % 1,000 mL IV bolus (COMPLETED) 1,000 mL, Intravenous, ONCE, 1 dose, On Kelly 04/17/22 at 2200, Administer over 0.5 Hours 2145 (New Bag - Provider: Aleksandra Cao RN)2231 (Stopped - Provider: Aleksandra Cao RN) Linked Groups Order Group 1: insulin regular (HumuLIN R;NovoLIN R) 10 Units in insulin syringe (COMPLETED)Jump to med 10 Units, Intravenous, ONCE, 1 dose, On Kelly 04/17/22 at 2200, Draw insulin up using the luer tip [...] (CANCELED) Routine, EVERY HOUR, First occurrence on Kelly 04/17/22 at 2245, For 4 occurrences, First accucheck 1 hour after insulin dose., Call if glucose greater than: 400, Call if glucose less than: 70 documented in this encounter Care Teams Manager Community Relationship Specialty Start Date End Date Jessica Navarro APRN, STAVE LOG CUT OFF SAW OPERATOR [address] [place] [address] PCP - General Family Medicine 01/16/18 Jessica Navarro APRN, STAVE LOG CUT OFF SAW OPERATOR [address] [place] [address] Family Medicine 01/16/18 documented as of this encounter
--- OUTSIDE RECORDS SUMMARY | 2024-04-14 18:29 | XMS_ITS | Encounter Summary ---
Author Organization [facility] Address [address] [place] [address] Phone Care Team Providers Care Switchman Name Role Phone Jessica Navarro APRN, CNP Primary Care Provider [phone] Jessica Navarro APRN, CNP Unavailable [phone] Reason for Referral * Consult, Test & Initiate Treatment (Routine) - Closed Specialty Diagnoses / Procedures Referred By Jonas reeves Referred To Contact Sleep Center Diagnoses ELLI (obstructive sleep apnea) Chance Walker MD [address] [place] [address] Phone: tel: fax: [facility] [address] [place] [address] Phone: tel: fax: Referral ID Status Reason Start Date Expiration Date Visits Re quested Visits Authorized [id number] Closed 02/13/2021 1 1 Scheduling Instructions Lilli is being referred for sleep. Please contact patient for scheduling questions or concerns. See below for Lilli's current medications, allergies and problem list. CURRENT MEDS: Current Outpatient Medications: albuterol (PROVENTIL HFA, VENTOLIN HFA) 108 (90 BASE) MCG/ACT Aerosol Solution, take 2 Puffs by inhalation every 6 hours as needed for Wheezing., Disp: 1 Inhaler, Rfl: 0 cyclobenzaprine (FLEXERIL) 10 MG Tablet, Take 10 mg by mouth., Disp: , Rfl: ergocalciferol (VITAMIN D) 83553 UNIT Capsule, ergocalciferol (vitamin D2) 50,000 unit capsule (Patient not taking: Reported on 02/13/2021), Disp: , Rfl: escitalopram (LEXAPRO) 10 MG Tablet, Take 10 mg by mouth daily., Disp: , Rfl: fluticasone (FLONASE) 50 MCG/ACT Suspension, fluticasone propionate 50 mcg/actuation nasal spray,suspension (Patient not taking: Reported on 02/13/2021), Disp: , Rfl: HYDROcodone-acetaminophen (NORCO) 5-325 MG Tablet, Take 2 Tabs by mouth. (Patient not taking: Reported on 02/13/2021), Disp: , Rfl: metFORMIN (GLUCOPHAGE) 500 MG Tablet, metformin 500 mg tablet Take 1 tablet twice a day by oral route., Disp: , Rfl: ondansetron (ZOFRAN-ODT) 4 MG TABLET DISPERSIBLE, Take 1 Tab by mouth every 6 hours as needed for Nausea - 1st line. (Patient not taking: Reported on 02/13/2021), Disp: 5 Tab, Rfl: 0 MV-Min-Fe Fum-FA-DHA ( 1) 30-0.975-200 MG Capsule, 28 mg iron-800 mcg tablet (Patient not taking: Reported on 02/13/2021), Disp: , Rfl: No current facility-administered medications for this visit. ALLERGIES: -- Mena -- Shortness of Breath PROBLEM LIST: Patient Active Problem List: ELLI (obstructive sleep apnea) Non morbid obesity Tobacco use disorder SOB (shortness of breath) Reason for Visit * Reason Comments Sleep Apnea * Consult, Test & Initiate Treatment (Routine) - Closed Specialty Diagnoses / Procedures Referred By Contac t Referred To Contact Pulmonology Diagnoses Sleep disorder, unspecified Jessica Navarro APRN, UNIT COORDINATOR [address] [place] [address] Phone: tel: fax: Chance Walker MD [address] [place] [address] Phone: tel: fax: Referral ID Status Reason Start Date Expiration Date Visits Re quested Visits Authorized [id number] Closed 1 1 Encounter Details Date Type Department Care Team (Late st Contact Info) Description 02/13/2021 10:15 AM CDT Office Visit [facility] - Pulmonology & Sleep Medicine [facility] [address] [place] [address] Chance Walker MD [address] [place] [address] ELLI (obstructive sleep apnea) (Primary Dx); SOB (shortness of breath); Non morbid obesity; Tobacco use disorder Discharge Disposition: Discharged to home or Selfcare Social History Tobacco Use Types Packs/Day Years Used Date Smoking Tobacco: Former Cigarettes Q uit: 09/13/2020 Smokeless Tobacco: Never Alcohol Use Standard Drinks/Week Comments No 0 (1 standard drink = 0.6 oz pur e alcohol) Comments No Sex and Gender Information Value Date Recorded Sex Assigned at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 Legal Sex Female 11:35 AM DISTANCE LEARNING TECHNICIAN Gender Identity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 Sexual Orientation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 COVID-19 Exposure Response Date Recorded In the last month, have you been in contact with someone who was confirmed or suspected to have Coronavirus / COVID-19? No / Unsure 02/13/2021 9:52 AM CDT documented as of this encounter Last Filed Vital Signs Vital Sign Reading Time Taken Comments Blood Pressure 120/66 02/13/2021 10:04 AM CDT Pulse 68 02/13/2021 10:04 AM CDT Temperature 35.9 ??C (96.6 ??F) 02/13/2021 10:04 AM C DT Respiratory Rate 16 02/13/2021 10:04 AM CDT Oxygen Saturation 98% 02/13/2021 10:04 AM CDT Inhaled Oxygen Concentration - - Weight 83.9 kg (185 lb) 02/13/2021 10:04 AM CDT Height 160 cm (5' 3 ) 02/13/2021 10:04 AM CDT Body Mass Index 32.77 02/13/2021 10:04 AM CDT documented in this encounter Progress Notes * Chance Walker MD - 02/13/2021 10:15 AM CDT Images from the original note were not included. Progress Note Subjective: HPI: Lilli Santos is a 25 y.o. female with following problems referred for obstructive sleep apnea. She was denied an in alb sleep study Has snoring +witnessed apneas + Fatigue +EDS +GERD Quit tobacco in August. Smoked 1/2 PPD x 7 years +COVID shot Problem List: Patient Active Problem List Diagnosis [...] History: reports that she quit smoking about 5 months ago. Her smoking use included cigarettes. She smoked 0.50 packs per day. She has never used smokeless tobacco. She reports that she does not drink alcoholand does not use drugs. Allergies: Allergies Description Type Start Date End Date Comment Verified Corporate Travel Coordinator Mena Allergy Severity: High Reactions: Shortness of Breath Stacie Jaramillo, [facility] Medication List: Current Outpatient Medications Medication Sig Dispense Refill ??? albuterol (PROVENTIL HFA, VENTOLIN HFA) 108 (90 BASE) MCG/ACT Aerosol Solution take 2 Puffs by inhalation every 6 hours as needed for Wheezing. 1 Inhaler 0 ??? cyclobenzaprine (FLEXERIL) 10 MG Tablet Take 10 mg by mouth. ??? ergocalciferol (VITAMIN D) 71480 UNIT Capsule ergocalciferol (vitamin D2) 50,000 unit capsule (Patient not taking: Reported on 02/13/2021) ??? escitalopram (LEXAPRO) 10 MG Tablet Take 10 mg by mouth daily. ??? fluticasone (FLONASE) 50 MCG/ACT Suspension fluticasone propionate 50 mcg/actuation nasal spray,suspension (Patient not taking: Reported on 02/13/2021) ??? HYDROcodone-acetaminophen (NORCO) 5-325 MG Tablet Take [...] tablet (Patient not taking: Reported on 02/13/2021) No current facility-administered medications for this visit. Review of Systems Constitutional: negative Eyes: negative Ears, nose, mouth, throat, and face: negative Respiratory: negative Cardiovascular: negative Gastrointestinal: negative Genitourinary:negative Integument/breast: negative Hematologic/lymphatic: negative Musculoskeletal:negative Neurological: negative Behvioral/Psych: negative Endocrine: negative Allergic/Immunologic: Allergies Allergen Reactions ??? Mena Shortness of Breath Objective: Vitals: Blood pressure 120/66, pulse 68, temperature 96.6 ??F (35.9 ??C), temperature source Temporal, resp. rate 16, height 5' 3 (1.6 m), weight 185 lb (83.9 kg), last menstrual period 02/18/2019, SpO2 98 %. Gen/Constitutional: Obese no distress HEENT: Normocephalic, [...] ICD-10-CM 1. ELLI (obstructive sleep apnea) G47.33 SLEEP STUDY REFERRAL 2. SOB (shortness of breath) R06.02 3. Non morbid obesity E66.9 4. Tobacco use disorder F17.200 Plan: Home Sleep study Discussed sleep hygiene Smoking cessation PFT's Continue Flonase Return in about 3 months (around 05/16/2021). Documentation for this visit on February 13 was completed using a template. I have seen and examined the patient. Everything documented was personally performed at this visit with the necessary additions, deletions and changes made as appropriate. Chance Walker MD 02/13/2021 10:23 AM CDT documented in this encounter Plan of Treatment Scheduled Referrals Name Type Priority Associated Diagnoses Orde r Schedule SLEEP STUDY REFERRAL Outpatient Referral Routine ELLI (obstructive sleep apnea) Expected: 02/13/2021, Expires: 04/14/2021 documented as of this encounter Visit Diagnoses Diagnosis ELLI (obstructive sleep apnea)- Primary Obstructive sleep apnea (adult) (pediatric) SOB (shortness of breath) Shortness of breath Non morbid obesity Tobacco use disorder documented in this encounter Care Teams Switchman Relationship Specialty Start Date End Date Jessica Navarro APRN, CNP [address] [place] [address] PCP - General Family Medicine 01/16/18 Jessica Navarro APRN, CNP [address] [place], [place] [id number] Family Medicine 01/16/18 documented as of this encounter
--- OUTSIDE RECORDS SUMMARY | 2024-04-14 18:29 | XMS_ITS | Encounter Summary ---
Author Organization [facility] Address [address] [place] [address] Phone Care Team Providers Care Marketing Programs Specialist Name Role Phone Jessica Navarro APRN, CNP Primary Care Provider [phone] Jessica Navarro APRN, CNP Unavailable [phone] Reason for Visit * Reason Onset Date Comments Results 06/24/2021 Sleep study Encounter Details Date Type Department Care Team ([facility] st Contact Info) Description 06/24/2021 Telephone [facility] - Pulmonology & Sleep Medicine [facility] [address] [place] [address] Chance Walker MD [address] [place] [address] Results (Sleep study ) Social History Tobacco Use Types Packs/Day Years Used Date Smoking Tobacco: Former Cigarettes Q uit: 09/13/2020 Smokeless Tobacco: Never Alcohol Use Standard Drinks/Week Comments No 0 (1 standard drink = 0.6 oz pur e alcohol) Comments No Sex and Gender Information Value Date Recorded Sex Assigned at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 Legal Sex Female 11:35 AM CELLOPHANE PRESS OPERATOR Gender Identity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 Sexual Orientation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 COVID-19 Exposure Response Date Recorded In the last month, have you been in contact with someone who was confirmed or suspected to have Coronavirus / COVID-19? No / Unsure 06/05/2021 7:03 PM CELLOPHANE PRESS OPERATOR documented as of this encounter Miscellaneous Notes * Telephone Encounter - Char Longo RN - 06/24/2021 3:50 PM CELLOPHANE PRESS OPERATOR Patient is aware and verbalizes understanding. OPHANE PRESS OPERATOR * Telephone Encounter - Char Longo RN - 06/24/2021 1:25 PM CELLOPHANE PRESS OPERATOR Left message for patient to call back. OPHANE PRESS OPERATOR * Telephone Encounter - Char Longo RN - 06/24/2021 9:58 AM CELLOPHANE PRESS OPERATOR SUMMARY: ?? The patient???s overall Apnea-hypopnea index is below the threshold to be considered clinically significant. Based on current published recommendations, RDI is below minimum thresholds for requiring treatment of obstructive sleep apnea (G47.33). ?? Overall AHI=1.0/hr, Overall SDB index=4.5/hr, low SpO2 = 90%. ?? Mild Periodic Limb Movement Disorder (PLMD)(G47.61) recorded associated with significant cortical arousals (PLM arousal index = 0.7/hr). ?? No seizure activity was noted in EEG tracing. ?? RECOMMENDATIONS: ?? Obtain and maintain ideal body weight. ?? Avoid alcohol and other ARCHAEOLOGIST depressants. ?? Aggressive treatment of sleep apnea is not needed at this time ?? A high sleep efficiency is often associated with chronic sleep restriction. She should be instructed to obtain a sufficient amount of sleep on a routine basis OPHANE PRESS OPERATOR documented in this encounter Plan of Treatment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 documented as of this encounter Visit Diagnoses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documented in this encounter Care Teams Marketing Programs Specialist Relationship Specialty Start Date End Date Jessica Navarro APRN, CNP [address] [place] [address] PCP - General Family Medicine 01/16/18 Jessica Navarro APRN, CNP [address] [place] [address] Family Medicine 01/16/18 documented as of this encounter
--- OUTSIDE RECORDS SUMMARY | 2024-04-14 18:29 | XMS_ITS | Encounter Summary ---
Author Organization [email or web address] Care Team Providers Care Manager Personal Name Role Phone Jessica Navarro APRN, CNP Primary Care Provider [phone] Jessica Navarro APRN, CNP Unavailable [phone] Encounter Details Date Type Department Care Team (Latest Contact Info) Description 05/15/2021 Travel Social History Tobacco Use Types Packs/Day Years Used Date Smoking Tobacco: Former Cigarettes Q uit: 09/13/2020 Smokeless Tobacco: Never Alcohol Use Standard Drinks/Week Comments No 0 (1 standard drink = 0.6 oz pur e alcohol) Comments No Sex and Gender Information Value Date Recorded Sex Assigned at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 Legal Sex Female 11:35 AM MAP COMPILER Gender Identity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 Sexual Orientation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 COVID-19 Exposure Response Date Recorded In the last month, have you been in contact with someone who was confirmed or suspected to have Coronavirus / COVID-19? No / Unsure 05/15/2021 10:01 AM MAP COMPILER documented as of this encounter Plan of Treatment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 documented as of this encounter Visit Diagnoses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documented in this encounter Care Teams Manager Personal Relationship Specialty Start Date End Date Jessica Navarro APRN, CNP [address] [place] [address] PCP - General Family Medicine 01/16/18 Jessica Navarro APRN, CNP [address] [place] [address] Family Medicine 01/16/18 documented as of this encounter
--- OUTSIDE RECORDS SUMMARY | 2024-04-14 18:29 | XMS_ITS | Encounter Summary ---
Author Organization [facility] Address [address] [place] [address] Phone Care Team Providers Care Metal Numerical Control Programmer Name Role Phone Jessica Navarro APRN, CNP Primary Care Provider [phone] Jessica Navarro APRN, CNP Unavailable [phone] Reason for Visit * Consult, Test & Initiate Treatment (Routine) - Closed Specialty Diagnoses / Procedures Referred By Jonas reeves Referred To Contact Sleep Center Diagnoses ELLI (obstructive sleep apnea) Chance Walker MD [address] [place] [address] Phone: tel: fax: [facility] Sleep Lab [address] [place] [address] Phone: tel: fax: Referral ID Status Reason Start Date Expiration Date Visits Re quested Visits Authorized [id number] Closed 05/15/2021 1 1 Encounter Details Date Type Department Care Team (Late st Contact Info) Description 06/05/2021 8:00 PM DISTRIBUTION TRANSFORMER ASSEMBLER Sleep Lab [facility] Sleep [facility] [address] [place] [address] Chance Walker MD [address] [place] [address] ELLI (obstructive sleep apnea); Obstructive [...] on file Legal Sex Female 11:35 AM DISTRIBUTION TRANSFORMER ASSEMBLER Gender Identity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 Sexual Orientation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 COVID-19 Exposure Response Date Recorded In the last month, have you been in contact with someone who was confirmed or suspected to have Coronavirus / COVID-19? No / Unsure 06/05/2021 7:03 PM DISTRIBUTION TRANSFORMER ASSEMBLER documented as of this encounter Procedure Notes * Chance Walker MD - 06/05/2021 8:00 PM CST EVALUATION REPORT Lilli Santos 06-05-2021 Ms. Lilli Santos, a 26 year old Female (1995), was seen at the [facility] for a sleep apnea evaluation. She has a history significant for Obstructive Sleep Apnea, obesity and shortness of breath. [place] Scale is 21. Her current height is 5'3 and weight is 211.0 pounds,her BMI is 37.4 and her neck size is 15.75 inches. She is referred by Dr. Chance Walker. SUMMARY: ??? The patient???s overall Apnea-hypopnea index is below the threshold to be considered clinicallysignificant. Based on current published recommendations, RDI is below minimum thresholds for requiring treatment of obstructive sleep apnea (G47.33). ??? Overall AHI=1.0/hr, Overall SDB index=4.5/hr, low SpO2 = 90%. ??? Mild Periodic Limb Movement Disorder (PLMD)(G47.61) recorded associated with significant cortical arousals (PLM arousal index = 0.7/hr). ??? No seizure activity was noted in EEG tracing. recommendations: ??? Obtain and maintain ideal body weight. ??? Avoid alcohol and other PMO PROJECT MANAGER depressants. ??? Aggressive treatment of sleep apnea is not needed at this time ??? A high sleep efficiency is often associated with chronic sleep restriction. She should be instructed to obtain a sufficient amount of sleep on a routine basis If daytime sleepiness persists, despite the above recommendations, a reevaluation with daytime somnolence testing may be considered. POLYSOMNOGRAPHY: Nocturnal polysomnography was performed 06-05-2021 (10:49:28 p.m. to 06:10:48 a.m.), using standardrecording parameters which include Frontal, Central and Occipital EEG,, left and right EOG, submental EMG, EKG, left and right anterior tibialis EMG, abdominal and thoracic respiratory effort, nasal/oral airflow, and oximetry. Epochs of data was staged and scored by registered technologist according to published AASM scoring guidelines and the 30% reduction in airflow associated with a 4% or greater desaturation for definition of hypopnea (AASM Rule 1B). She estimated obtaining 5 hours of sleepthe night before testing. SLEEP DATA: Ms. Santos had a total sleep time (TST) of 410.8 minutes out of 441.3 minutes total recording time (TRT) for a high sleep efficiency (TST/TRT) of 93.1%. Sleep latency was 4.5 minutes and Stage R (REM) latency was 174.0 minutes. Sleep architecture was unremarkable. Stage N1 sleep comprised 7.1% of total sleep time (29.0 minutes). Stage N2 sleep was 64.0% (262.8 minutes), Stage N3 sleep was 10.6% (43.5 minutes) and Stage R sleep was 18.4% (75.5 minutes). There were 8.9 spontaneous arousals per hour of sleep. There was 26.0 minutes of wake after sleep onset reported. RESPIRATORY MONITORING: Respiratory monitoring revealed 0 obstructive apneas, 0 mixed apneas, 2 central apnea and 5 partialupper airway obstructions (obstructive hypopneas) resulting in an overall apnea and hypopnea index (AHI) of 1.0 per hour of sleep. The longest noted apnea was 10.0 seconds. Her overall supine AHI was1.5 events per hour of supine sleep (116.7 minutes total supine sleep) and lateral AHI was 0.7 events per hour of lateral sleep (84.0 minutes total lateral sleep). There was an average of 0.7 apneas and hypopneas per hour of non-REM sleep and an average of 2.4 apneas and hypopneas per hour of REM sleep. There were an additional 3.5 respiratory event related arousals (RERA) which resulted in an overall sleep disordered breathing (SDB) index of 4.5/hr. Baseline waking SaO2 was 96%, mean sleeping SpO2 was 96% and the lowest SpO2 was 90%. Technicians noted severe snores while supine, and intermittent mild to moderate snores with lateral during sleep. LIMB MOVEMENTS AND ECG: Anterior tibialis EMG monitoring revealed 15 periodic leg movements in sleep (2.2 per hour), 5 of which were associated with unambiguous EEG arousal (0.7 per hour). ECG showed Normal Sinus Rhythm. Average heart rate was 76.6 bpm, minimum recorded heart rate was 18.0 bpm and maximum heart rate was 107.0 bpm PATIENT ASSESSMENT: On the morning post sleep questionnaire, the patient estimated a sleep latency of 15 minutes and a total sleep time of 5 hours. She noted that the sleep in the laboratory was similar to her sleep at home. Thank you for this referral and please call with any questions or concerns. Chance Walker MD RIBUTION TRANSFORMER ASSEMBLER RIBUTION TRANSFORMER ASSEMBLER RIBUTION TRANSFORMER ASSEMBLER Associated attestation - Sebastian Dowling MD - 06/18/2021 4:51 PM DISTRIBUTION TRANSFORMER ASSEMBLER I have read the Sleep Report for this patient and attest that I am in agreement with it. documented in this encounter Plan of Treatment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 documented as of this encounter Procedures Procedure Name Priority Date/Time Associated Diagnosis Comments SPLIT NIGHT POLYSOMNOGRAPHY - INCLUDES DIAGNOSTIC AND CPAP TITRATION Routine 06/06/2021 Obstructive sleep apnea documented in this encounter Results * SPLIT NIGHT PSG (06/06/2021) us Chance Walker MD SLEEP CENTER ORDERABLES Final Re sult documented in this encounter Visit Diagnoses Diagnosis ELLI (obstructive sleep apnea) Obstructive sleep apnea (adult) (pediatric) Obstructive sleep apnea Obstructive sleep apnea (adult) (pediatric) documented in this encounter Care Teams Metal Numerical Control Programmer Relationship Specialty Start Date End Date Jessica Navarro APRN, CNP [address] [place] [address] PCP - General Family Medicine 01/16/18 Jessica Navarro APRN, CNP [address] [place] [address] Family Medicine 01/16/18 documented as of this encounter
--- OUTSIDE RECORDS SUMMARY | 2024-04-14 18:29 | XMS_ITS | Encounter Summary ---
Author Organization [facility] Address [address] [place] [address] Phone Care Team Providers Care Record Maker Name Role Phone Jessica Navarro APRN, CNP Primary Care Provider [phone] Jessica Navarro APRN, CNP Unavailable [phone] Encounter Details Date Type Department Care Team (Late st Contact Info) Description 02/20/2021 Transcribe Orders [facility] Sleep Lab [address] [place] [address] Chance Walker MD [address] [place] [address] Obstructive sleep apnea (Primary Dx) Social History Tobacco Use Types Packs/Day Years Used Date Smoking Tobacco: Former Cigarettes Q uit: 09/13/2020 Smokeless Tobacco: Never Alcohol Use Standard Drinks/Week Comments No 0 (1 standard drink = 0.6 oz pur e alcohol) Comments No Sex and Gender Information Value Date Recorded Sex Assigned at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 Legal Sex Female 11:35 AM POPCORN ATTENDANT Gender Identity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 Sexual Orientation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 COVID-19 Exposure Response Date Recorded In the last month, have you been in contact with someone who was confirmed or suspected to have Coronavirus / COVID-19? No / Unsure 02/13/2021 9:52 AM CDT documented as of this encounter Plan of Treatment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 documented as of this encounter Results * HOME SLEEP STUDY UNATTENDED TYPE III (02/21/2021) us Chance Walker MD SLEEP CENTER ORDERABLES Final Re sult documented in this encounter Visit Diagnoses Diagnosis Obstructive sleep apnea- Primary Obstructive sleep apnea (adult) (pediatric) documented in this encounter Care Teams Record Maker Relationship Specialty Start Date End Date Jessica Navarro APRN, CNP [address] [place] [address] PCP - General Family Medicine 01/16/18 Jessica Navarro APRN, CNP [address] [place] [address] Family Medicine 01/16/18 documented as of this encounter
--- OUTSIDE RECORDS SUMMARY | 2024-04-14 18:29 | XMS_ITS | Encounter Summary ---
Author Organization [facility] HealthCare Address [address] [place] [address] Phone Care Team Providers Care Stonecutter Hand Name Role Phone Jessica Navarro APRN, CNP Primary Care Provider [phone] Jessica Navarro APRN, CNP Unavailable [phone] Reason for Visit * Reason Comments Tingling Numbness Pain * Other (Routine) - Closed Specialty Diagnoses / Procedures Referred By Jonas reeves Referred To Contact Neurology Diagnoses Anesthesia of skin Procedures EMG Jessica Navarro APRN, CNP [address] [place] [address] Phone: tel: fax: Referral ID Status Reason Start Date Expiration Date Visits Re quested Visits Authorized [id number] Closed 05/30/2022 1 1 Encounter Details Date Type Department Care Team (Late st Contact Info) Description 06/18/2022 10:00 AM CERTIFIED FORKLIFT OPERATOR [facility] [address] [place] [address] Jessica Navarro APRN, CNP [address] [place] [address] Anesthesia of skin Discharge Disposition: Discharged to home or Selfcare Social History Tobacco Use Types Packs/Day Years Used Date Smoking Tobacco: Former Cigarettes Q uit: 09/13/2020 Smokeless Tobacco: Never Alcohol Use Standard Drinks/Week Comments No 0 (1 standard drink = 0.6 oz pur e alcohol) Comments No Sex and Gender Information Value Date Recorded Sex Assigned at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 Legal Sex Female 11:35 AM CERTIFIED FORKLIFT OPERATOR Gender Identity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 Sexual Orientation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 COVID-19 Exposure Response Date Recorded In the last 10 days, have yo u been in contact with someone who was confirmed or suspected to have Coronavirus/COVID-19? No / Unsure 06/18/2022 9:41 AM CERTIFIED FORKLIFT OPERATOR documented as of this encounter Progress Notes * Marquis Ghotra MD - 06/18/2022 10:00 AM CST Electromyogram Procedure Note Date of Procedure: 06/18/2022 Pre-operative Diagnosis: right upper extremity numbness, tingling and pain. Post-operative Diagnosis: Indications: Diagnostic Procedure Details Motor Nerve Conduction Studies: The right median motor nerve shows normal distal motor latency, normal motor amplitude and normal conduction velocity. The right ulnar motor nerve shows normal distal motor latency, normal motor amplitude and normal conduction velocity. Sensory Nerve Conduction Studies: The right median sensory nerve shows normal sensory nerve peak latency and normal sensory amplitude. The right ulnar sensory nerve shows normal sensory nerve peak latency and normal sensory amplitude. The right radial sensory nerve shows normal sensory nerve peak latency and normal sensory amplitude. Median radial comparisons were prolonged, on the right. Median ulnar comparisons were prolonged, on the right. F waves: F wave latency for the right median nerve was normal. F wave latency for the right ulnar nerve was normal. 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 Clinical correlation is recommended. IFIED FORKLIFT OPERATOR documented in this encounter Procedure Notes * Marquis Ghotra MD - 06/18/2022 10:00 AM CSTAssociated Order(s): EMG Electromyogram Procedure Note Date of Procedure: 06/18/2022 Pre-operative Diagnosis: right upper extremity numbness, tingling and pain. Post-operative Diagnosis: Indications: Diagnostic Procedure Details Motor Nerve Conduction Studies: The right median motor nerve shows normal distal motor latency, normal motor amplitude and normal conduction velocity. The right ulnar motor nerve shows normal distal motor latency, normal motor amplitude and normal conduction velocity. Sensory Nerve Conduction Studies: The right median sensory nerve shows normal sensory nerve peak latency and normal sensory amplitude. The right ulnar sensory nerve shows normal sensory nerve peak latency and normal sensory amplitude. The right radial sensory nerve shows normal sensory nerve peak latency and normal sensory amplitude. Median radial comparisons were prolonged, on the right. Median ulnar comparisons were prolonged, on the right. F waves: F wave latency for the right median nerve was normal. F wave latency for the right ulnar nerve was normal. 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 Clinical correlation is recommended. IFIED FORKLIFT OPERATOR documented in this encounter Plan of Treatment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 documented as of this encounter Procedures Procedure Name Priority Date/Time Associated Diagnosis Comments EMG Routine 06/18/2022 12:00 AM CERTIFIED FORKLIFT OPERATOR Anesthesia of skin documented in this encounter Results * EMG (06/18/2022 12:00 AM CERTIFIED FORKLIFT OPERATOR) 06/18/2022 Jessica Navarro APRN, CNP NEUROLOGY ORDERABLES V2 F inal Result SCAN documented in this encounter Visit Diagnoses Diagnosis Anesthesia of skin Disturbance of skin sensation documented in this encounter Care Teams Stonecutter Hand Relationship Specialty Start Date End Date Jessica Navarro APRN, CNP [address] [place] [address] PCP - General Family Medicine 01/16/18 Jessica Navarro APRN, CNP [address] [place], [place] [id number] Family Medicine 01/16/18 documented as of this encounter
--- OUTSIDE RECORDS SUMMARY | 2024-04-14 18:30 | XMS_ITS | Encounter Summary ---
Author Organization [facility] Healthcare Address [address] [place] [id number] Care Team Providers Care Motors And Generators Inspector Name Role Phone Jessica Navarro NP Primary Care Provider [phone] Ophelia Ashraf MD Unavailable [phone] Reason for Visit * Reason Comments Exposure to STD Encounter Details Date Type Department Care Team (Late st Contact Info) Description 12/20/2023 11:12 AM CDT - 12/20/2023 12:44 PM CDT Emergency [facility] Emergency Department [address] [place] [address] Concern about sexually transmitted infection in female without diagnosis (Primary Dx) Discharge Disposition: Discharge to home or self care Social History Tobacco Use Types Packs/Day Years Used Date Smoking Tobacco: Every Day E-cigarettes Smokeless Tobacco: Never Alcohol Use Standard Drinks/Week Comments Never 0 (1 standard drink = 0.6 oz pur e alcohol) AUDIT-C Answer Date Recorded Q1: How often do you have a drink containing alc ohol? Monthly or less 09/30/2023 Q2: How many drinks containi ng alcohol do you have on a typical day when you are drinking? 1 or 2 09/30/2023 Q3: How often do you have si x or more drinks on one occasion? Never 09/30/2023 Hunger Vital Sign Answer Date Recorded Within the past 12 months, y ou worried that your food would run out before you got the money to buy more. Never true 09/30/19 24 Within the past 12 months, t he food you bought just didn't last and you didn't have money to get more. Never true 09/30/2023 Personal Safety Answer Date Recorded Have you ever been in or are you currently in a harmful physical or emotional relationship or is someone making you feel afraid or unsafe? Denies 12/20/2023 Comments Unknown Sex and Gender Information Value Date Recorded Sex Assigned at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 Legal Sex Female 11:31 AM CDT Gender Identity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 Sexual Orientation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 Occupation Industry Job Start Date Job End Date [employer]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 N ot on file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 documented as of this encounter Last Filed Vital Signs Vital Sign Reading Time Taken Comments Blood Pressure 132/79 12/20/2023 11:06 AM CDT Pulse 90 12/20/2023 11:06 AM CDT Temperature 36.7 ??C (98.1 ??F) 12/20/2023 11:06 AM C DT Respiratory Rate 16 12/20/2023 11:06 AM CDT Oxygen Saturation 98% 12/20/2023 11:06 AM CDT Inhaled Oxygen Concentration - - Weight 85.3 kg (188 lb) 12/20/2023 11:06 AM CDT Height 160 cm (5' 3 ) 12/20/2023 11:06 AM CDT Body Mass Index 33.3 12/20/2023 11:06 AM CDT documented in this encounter Discharge Instructions * Discharge Instructions* Lillian Crouch PA - 12/20/2023 12:21 PM CDT No sex until all tests returned are negative. Inform all partners need for treatment. You have not been tested today for HIV, syphilis or HPV today. Follow-up with your primary care physician in 1-2 days for further testing. Take all medication as directed. If symptoms worsen return to the emergency room Pt was treated with Rocephin 500 and Metronidazole 2,000 mg for Trich, pt was discharged home with Doxycycline for Chlamydia. * Attachments The following attachments cannot be sent through Care Everywhere. * Sexually Transmitted Diseases (AfterCare(R) Instructions(ER/ED)) (Montenegrin) documented in this encounter Medications at Time of Discharge doxycycline (VIBRAMYCIN) 100 mg capsuleIndication s:Sexually Transmitted Infection Take 1 tablet/capsule (100 mg total) by mouth 2 (two) times a day for 7 days 14 tablet/capsul e 12/20/2023 4 albuterol HFA (PROVENTIL HFA,VENTOLIN HFA,PROAIR HFA) 90 mcg/actuation inhaler Inhale 2 puffs every 4 (four) hours as needed for wheezing 1 Inhaler 05/14/2020 4 ascorbic acid (VITAMIN C) 500 mg tablet,chewable Take 1 tablet/chew tab (500 mg total) by mouth 2 (two) times a day 60 tablet/chew tab 05/13/2023 4 bacitracin 500 unit/gram ointment Apply topically 2 (two) times a day 28 g 12/04/2023 4 cariprazine (Vraylar) 3 mg capsule capsule 1 capsule (3 mg total) daily 4 cholecalciferol (Vitamin D3) 2000 unit tablet Take 1 tablet (2,000 Units total) by mouth daily 30 tablet 05/13/2023 4 Monday[employer] Properties G7 Sensor deviceIndications :Type 2 diabetes mellitus without complication, without long-term current use of insulin ([facility]) ([facility]) 1 Device continuously . Change every 10 days. E11.9 10 each 3 07/14/[address] (CYMBALTA) 30 mg capsule Take 1 capsule every day by oral route. 4 famotidine (PEPCID) 20 mg tablet Take 1 tablet (20 mg total) by mouth 2 (two) times a day 20 tablet 11/04/2023 4 fluconazole (DIFLUCAN) 150 mg tablet Take by mouth once 08/10/2023 4 gabapentin (NEURONTIN) 300 mg capsule Take 2 capsules (600 mg total) by mouth 3 (three) times a day 180 capsule 11 09/30/2023 4 hydrocortisone 2.5 % ointment Apply topically 2 (two) times a day 30 g 11/04/2023 4 hydrOXYzine (ATARAX) 25 mg tablet Take 1 tablet (25 mg total) by mouth 3 (three) times a day 30 tablet 11/04/2023 4 ibuprofen (ADVIL,MOTRIN) 800 mg tablet Take 1 tablet (800 mg total) by mouth every 8 (eight) hours as needed for pain 20 tablet 12/04/2023 4 insulin lispro (HumaLOG) 100 unit/mL pen for injection Use as directed before meals, max 20 units per day 15 mL 2 05/12/2022 4 ketorolac (TORADOL) 10 mg tablet Take 1 tablet (10 mg total) by mouth every 6 (six) hours as needed for pain 20 tablet 11/04/2023 4 lamoTRIgine (LaMICtal) 200 mg tablet TAKE 1 TABLET BY MOUTH EVERY DAY FOR 30 DAYS 06/03/2023 4 LANTUS 100 unit/mL (3 mL) pen for injection 20 Units daily 03/27/2022 4 M- Plus 27 mg iron- 1 mg tablet Take 1 tablet by mouth daily 03/26/2023 4 metFORMIN (GLUCOPHAGE) 500 mg tablet TAKE 2 TABLETS BY MOUTH TWICE DAILY 360 tablet 1 10/24/2022 4 methocarbamoL (ROBAXIN) 500 mg tablet Take 1 tablet (500 mg total) by mouth 2 (two) times a day as needed for muscle spasms 20 tablet 11/04/2023 4 nicotine 21-14-7 mg/24 hr patch, TD daily, sequentialIndicat ions:Smoking Cessation Place one patch to skin daily: 21 mg/24 hr for 28 days, 14 mg/24 hr for 14days, 7 mg/24 hr for 14 days. E11.9 56 patch 1 07/14/2023 4 nicotine, polacrilex, 4 mg mini lozengeIndication s:Smoking Cessation Apply 1 tablet to cheek as needed (for break through nicotine craving.) 135 each 3 07/14/2023 4 ondansetron (ZOFRAN) 4 mg tablet Every 4-6 hours as needed 30 tablet 1 05/13/2023 4 OneTouch Delica Plus Lancet 33 gauge misc 03/27/2022 4 OneTouch Ultra Test strip Use to check sugars 3 x per day 100 strip 5 05/12/2022 4 QUEtiapine (SEROquel) 400 mg tablet TAKE 1 TABLET BY MOUTH DAILY NEEDED FOR SLEEP 07/21/2023 4 senna-docusate (PERICOLACE) 8.6-50 mg 1-2 times daily as needed for constipation 60 tablet 1 05/13/2023 4 TRUEplus Pen Needle 32 gauge x needle Use 3 per day for insulin pen 100 each 5 05/12/2022 4 documented as of this encounter Ordered Prescriptions Prescription Sig Dispense Quantity Refills Last Filled Start Date End Date doxycycline (VIBRAMYCIN) 100 mg capsuleIndications: Sexually Transmitted Infection Take 1 tablet/caps ule (100 mg total) by mouth 2 (two) times a day for 7 days 14 tablet/capsule 12/20/2023 12/27/2023 documented in this encounter Discharge Disposition Disposition Code Departure Means Destination Comment s Discharge to home or self care documented in this encounter ED Notes * Lillian Crouch PA - 12/20/2023 11:42 AM CDT HPI Chief Complaint Patient presents with Exposure to STD HPI 7:22 PM Lilli Santos is a 28 y.o. female complains of vaginal discharge and dysuria. Pt admits history of unprotected sex with new partner. Pt denies vaginal pain, bleeding or lesions. Pt is requesting testing for an STD. Patient History: Past Medical History: Diagnosis Date Ankle swelling Anxiety Anxiety Asthma Bipolar disorder (HCC) Depression Depression Diabetes mellitus (HCC) Diarrhea Fatigue GERD (gastroesophageal reflux disease) Headache Heartburn Joint swelling Low back pain Muscle pain Poor appetite Rheumatoid arthritis (HCC) Suicidal ideation Thyroid disease Past Surgical History: Procedure Laterality Date ANKLE SURGERY Left ARM SURGERY Right 2 separate surgeries to remove extra tissue under the right armpit BREAST SURGERY breast reduction CARPAL TUNNEL RELEASE FL FLUORO GUIDED LUMBAR PUNCTURE Right 03/01/2021 FL FLUORO GUIDED LUMBAR PUNCTURE Right 04/08/2021 REDUCTION MAMMAPLASTY Bilateral 2011 2017-more right axillary tissue removed THYROID SURGERY Right WISDOM TOOTH EXTRACTION Family History Problem Relation Age of Onset No Known Problems Mother No Known Problems Father Heart disease Other Hypertension Other Cancer Other Arthritis Other Diabetes Other Breast cancer Neg Hx Ovarian cancer Neg Hx Thyroid cancer Neg Hx Social History Tobacco Use Smoking status: Every Day Types: E-cigarettes Smokeless tobacco: Never Substance and Sexual Activity Drug use: Not Currently Types: Marijuana Comment: occaionally at night Sexual activity: Defer Alcohol Use: Not At Risk (09/30/2023) AUDIT-C Frequency of Alcohol Consumption: Monthly or less Average Number of Drinks: 1 or 2 Frequency of Binge Drinking: Never No current facility-administered medications for this encounter. Current Outpatient Medications: albuterol HFA (PROVENTIL HFA,VENTOLIN HFA,PROAIR HFA) 90 mcg/actuation inhaler ascorbic acid (VITAMIN C) 500 mg tablet,chewable bacitracin 500 unit/gram ointment cariprazine (Vraylar) 3 mg capsule capsule cholecalciferol (Vitamin D3) 2000 unit tablet Dexcom G7 Sensor device doxycycline (VIBRAMYCIN) [address] (CYMBALTA) 30 mg capsule famotidine (PEPCID) 20 mg tablet fluconazole (DIFLUCAN) 150 mg tablet gabapentin (NEURONTIN) 300 mg capsule hydrocortisone 2.5 % ointment hydrOXYzine (ATARAX) 25 mg tablet ibuprofen (ADVIL,MOTRIN) 800 mg tablet insulin lispro (HumaLOG) 100 unit/mL pen for injection ketorolac (TORADOL) 10 mg tablet lamoTRIgine (LaMICtal) 200 mg tablet LANTUS 100 unit/mL (3 mL) pen for injection M-Anel Plus 27 mg iron- 1 mg tablet medroxyPROGESTERone (PROVERA) 10 mg tablet metFORMIN (GLUCOPHAGE) 500 mg tablet methocarbamoL (ROBAXIN) 500 mg tablet nicotine 21-14-7 mg/24 hr patch, TD daily, sequential nicotine, polacrilex, 4 mg mini lozenge ondansetron (ZOFRAN) 4 mg tablet OneTouch Delica Plus Lancet 33 gauge [facility] OneTouch Ultra Test strip QUEtiapine (SEROquel) 400 mg tablet senna-docusate (PERICOLACE) 8.6-50 mg TRUEplus Pen Needle 32 gauge x needle Review of Systems Review of Systems All systems reviewed and are neg or non contributory for this patients presentation today other than as stated in the HPI . Physical Exam ED Triage Vitals [12/20/23 1106] Temp Pulse Resp BP SpO2 36.7 ??C (98.1 ??F) 90 16 132/79 98 % Temp src Heart Rate Source Patient Position BP Location FiO2 (%) Oral Pulse Oximetry Sitting Right arm -- Height Height Method Weight Weight Method 1.6 m (5' 3 ) Stated 85.3 kg (188 lb) Stated No data found. Physical Exam Vitals and nursing note reviewed. Constitutional: General: She is not in acute distress. Appearance: She is well-developed. HENT: Head: Normocephalic and atraumatic. Eyes: Conjunctiva/sclera: Conjunctivae normal. Cardiovascular: Rate and Rhythm: Normal rate and regular rhythm. Heart sounds: No murmur heard. Pulmonary: Effort: Pulmonary effort is normal. No respiratory distress. Breath sounds: Normal breath sounds. Abdominal: General: There is no distension. Palpations: Abdomen is soft. There is no mass. Tenderness: There is no abdominal tenderness. There is no right CVA tenderness, left CVA tenderness, guarding or rebound. Hernia: No hernia is present. Genitourinary: Vagina: Vaginal discharge present. Musculoskeletal: General: No swelling. Cervical back: Neck supple. Skin: General: Skin is warm and dry. Capillary Refill: Capillary refill takes less than 2 seconds. Neurological: Mental Status: She is alert. Psychiatric: Mood and Affect: Mood normal. Procedures MDM Labs Reviewed POCT RAPID HIV ANTIBODY [facility] SCREENING-MILAGROS ELIGIBLE - Normal Result Value Rapid HIV, POC Negative Lot Number [id number] QC Control Line Acceptable N. GONORRHOEAE/C. TRACHOMATIS AMPLIFICATION C. trachomatis Not Detected N. gonorrhoeae Not Detected No orders to display BP 132/79 (BP Location: Right arm, Patient Position: Sitting) Pulse 90 Temp 36.7 ??C (98.1 ??F)(Oral) Resp 16 Ht 160 cm (5' 3 ) Wt 85.3 kg (188 lb) LMP 12/09/2023 SpO2 98% BMI 33.30 kg/m?? MDM Number of Diagnoses or Management Options Concern about sexually transmitted infection in female without diagnosis Diagnosis management comments: Vaginal discharge initial encounter Differential diagnoses were considered before arriving at final diagnosis ad many were either ruledout or appeared unlikely: STD, acute UTI, Gonorrhea, Chlamydia, trichomonal, No sex until all tests returned are negative. Inform all partners need for treatment. You have not been tested today for HIV, syphilis or HPV today. Follow-up with your primary care physician in 1-2 days for further testing. Take all medication as directed. If symptoms worsen return to the emergency room Pt was treated with Rocephin 500 and Metronidazole 2,000 mg for Trich, pt was discharged home with Doxycycline for Chlamydia. Amount and/or Complexity of Data Reviewed Clinical lab tests: ordered and reviewed Risk of Complications, Morbidity, and/or Mortality Presenting problems: moderate Diagnostic procedures: moderate Management options: moderate Patient Progress Patient progress: stable This examination was transcribed using the [employer] voice recognition system without human circuit board inspector. In an effort to expedite patient care, this report has not been adjusted for typographical, grammatical, and syntax by a trained medical unit secretary. Close outpatient follow-up with a low threshold to return has been mandated , concerning symptoms have been emphasized in detail, and this patient expresses understanding Clinical Impression: Concern about sexually transmitted infection in female without diagnosis Lillian Crouch PA 12/23/231921 Cosigned by Elizabeth Feliz MD at 12/25/2023 5:16 PM CDT * Renetta Lucas RN - 12/20/2023 11:09 AM CDT Requesting STD testing, denies Sx. Sts her ex came in yesterday and tested positive for chlamydia and trich. documented in this encounter Plan of Treatment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 documented as of this encounter Goals Goal Patient Goal Type Associated Problems Recent Progress Patient-Stated? Author CCM Chronic Pain Care Plan Chronic Care Management Worsening( 9:56 AM CDT) No Raiza Drummond RN Note: Problem: Chronic Pain Goals: 1. Minimize further functional decline 2. Maximize quality of life 3. Control pain Strategies: - Activity/exercise program recommendation - Conservative stepwise pain medicine strategy with multi-disciplinary approach - Recommend healthy lifestyle strategies and compensatory methods as needed documented as of this encounter Procedures Procedure Name Priority Date/Time Associated Diagnosis Comments POCT RAPID HIV ANTIBODY [facility] SCREENING-MILAGROS ELIGIBLE Routine 12/20/2023 11:50 AM CDT N. GONORRHOEAE/C. TRACHOMATIS AMPLIFICATION STAT 12/20/2023 11:39 AM CDT documented in this encounter Results * POCT Rapid HIV Antibody Community Screening-[facility] Eligible (12/20/2023 11:50 AM CDT) Rapid HIV, POC Negative Negative Lot Number [id number] QC Control Line Acceptable Blood 12/20/2023 11:5 0 AM CDT us Elizabeth Feliz MD POINT OF CARE TEST ORDERABLES F inal Result * N. gonorrhoeae/C. trachomatis Amplification Urine (12/20/2023 11:39 AM CDT) C. trachomatis Not Detected Not Detected N. gonorrhoeae Not Detected Not Detected ILDA FIERRO Comment: Interpretive Data This assay detects Chlamydia trachomatis and Neisseria gonorrhoeae by nucleic acid amplification testing (NAAT). This assay has been cleared by the [place] Food and Drug administration. The performance characteristics of this test have been verified by the [facility]. The performance characteristics of this test have not been evaluated in individuals less than 14 years of age. Current Interpretive Data last revised 2023. Urine (None) 12/20/2023 11:3 9 AM CDT 12/20/2023 4:14 PM CDT us Elizabeth Feliz MD LAB MICROBIOLOGY - [facility]AL [facility] Final Result ILDA FIERRO [id number] Department [place] [address] documented in this encounter Visit Diagnoses Diagnosis Concern about sexually transmitted infection in female without diagnosis- Primary documented in this encounter Administered Medications Inactive Administered Medications - up to 3 most recent administrations Medication Order MAR Action Action Date Dose Rate Site cefTRIAXone (ROCEPHIN) 500 mg in sterile water injection 500 mg, intramuscular, Once, On 12/20/23 at 1143, For 1 dose, Reconstitute 500 mg vial with 1 mL sterile water for injection. Resulting solution is 350 mg/mL., Indications: Sexually Transmitted InfectionIndications:Sex ually Transmitted Infection Given 12/20/2023 12:03 PM CDT 500 mg Right Dorsogluteal/Butt ock metroNIDAZOLE (FLAGYL) tablet 2,000 mg 2,000 mg, oral, Once, On 12/20/23 at 1143, For 1 dose, Indications: Sexually Transmitted InfectionIndications:Sex ually Transmitted Infection Given 12/20/2023 12:02 PM CDT 2,000 mg documented in this encounter Active and Recently Administered Medications Times are shown in CDT. Scheduled Medication Order 12/18/2023 12/19/2023 12/20/2023 cefTRIAXone (ROCEPHIN) 500 mg in sterile water injection (COMPLETED) 500 mg, intramuscular, Once, On 12/20/23 at 1143, For 1 dose, Reconstitute 500 mg vial with 1 mL sterile water for injection. Resulting solution is 350 mg/mL., Indications: Sexually Transmitted Infection 1203 (Given - Provid er: Reece Tillman RN) metroNIDAZOLE (FLAGYL) tablet 2,000 mg (COMPLETED) 2,000 mg, oral, Once, On 12/20/23 at 1143, For 1 dose, Indications: Sexually Transmitted Infection 1202 (Given - Provid er: Reece Tillman RN) documented in this encounter Care Teams Motors And Generators Inspector Relationship Specialty Start Date End Date Jessica Navarro NP [address] [place] [address] PCP - General 08/23/20 Ophelia Ashraf MD [address] [facility] [address] [address] [place] [id number] Consulting Physician Endocrinology 04/15/23 documented as of this encounter
--- OUTSIDE RECORDS SUMMARY | 2024-04-14 18:30 | XMS_ITS | Encounter Summary ---
Author Organization [facility] Healthcare Address [address] [place] [address] Care Team Providers Care Cleaning Matron Name Role Phone Melanie, Jessica Pinto NP Primary Care Provider + [phone] Ophelia Ashraf MD Unavailable [phone] Reason for Visit * Reason Comments Diabetes Type 2 Encounter Details Date Type Department Care Team (Late st Contact Info) Description 02/25/2024 7:30 AM CDT Office Visit [facility] Diabetes Endocrine Care at [address] [address] Malini Cummins, ANA LILIA [address] [place] [id number] Type 2 diabetes mellitus without complication, without long-term current use of insulin (CMS/HCC) (HCC) (Primary Dx); Class 1 obesity due to excess calories with serious comorbidity and body mass index (BMI) of 33.0 to 33.9 in adult Social History Tobacco Use Types Packs/Day Years Used Date Smoking Tobacco: Every Day E-cigarettes Smokeless Tobacco: Never Tobacco Cessation:Ready to Q uit: Not Asked; Counseling Given: Not Answered Alcohol Use Standard Drinks/Week Comments Never 0 [...] the money to buy more. Never true 02/04/20 24 Within the past 12 months, t he food you bought just didn't last and you didn't have money to get more. Never true 02/04/2024 Personal Safety Answer Date Recorded Have you ever been in or are you currently in a harmful physical or emotional relationship or is someone making you feel afraid or unsafe? Denies 12/28/2023 Comments Unknown Sex and Gender Information Value Date Recorded Sex Assigned at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 Legal Sex Female 11:31 AM CDT Gender Identity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 Sexual Orientation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 Occupation Industry Job Start Date Job End Date [employer]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 N ot on file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 documented as of this encounter Last Filed Vital Signs Vital Sign Reading Time Taken Comments Blood Pressure 132/74 02/25/2024 7:45 AM CDT Pulse - - Temperature - - Respiratory Rate - - Oxygen Saturation - - Inhaled Oxygen Concentration - - Weight 86.2 kg (190 lb 1.6 oz) 02/25/2024 7:38 A M CDT Height 160 cm (5' 3 ) 02/25/2024 7:38 AM CDT Body Mass Index 33.67 02/25/2024 7:38 AM CDT documented in this encounter Patient Instructions * Patient Instructions* Malini Cummins NP - 02/25/2024 7:30 AM CDT Thanks for coming in today. I am thankful you have trusted me with your care, and hope that you received EXCELLENT care today! Please do not hesitate to call if you have any questions or concerns at [phone]. You may receive a phone call or text asking about your care today. I would love to hear your input and again, hope your visit was as EXCELLENT as possible, even if you were not feeling your best! Medications: Please take medications as prescribed. Continue metformin 1000mg twice daily. Monitoring: Check blood sugar continuously with the freestyle viviane 2 sensor. We will be requesting to see blood sugar at your next visit. Call office if blood sugars is dropping below 80. Call office if your blood sugar is greater than 250, for 3 days. A medication adjustment is needed. Monitor your weight, even a 10 pound weight loss can help to reduce medication. Hypoglycemia is a blood sugar below 80. If your blood sugar level is below 80, eat or drink 15 grams of fast-acting carbohydrate. (examples: 4 oz (?? cup) of fruit juice, 4 oz of regular soda or 4 glucose tablets.) Check your blood sugar level 15 minutes later. If the level is still low (less than 100 mg/dL), have another 15 grams of carbohydrate. When the level returns to 100 mg/dL, eat a snack or meal that contains carbohydrates. This will help prevent another drop in blood sugar. Nutrition: Eat healthy, include fresh fruits and vegetables daily. Eat no more than 45-60 grams of carbs per meal. Do not eat fried foods more than once per week. To see the Dietitian, Boat Worker or attend Diabetes Class, Schedule an appointment by calling Centralized Scheduling at [phone]. Exercise: Try moving at least a total of 30 minutes/day. This does not have to be done at one time. Self Care and Risk Reduction: Please get a Dilated eye exam yearly and have results faxed to the office. Check Feet daily, watch for blisters, cuts or sores. Wash, dry and lotion feet daily. Notify your doctor if a wound develops. Always carry a source of fast-acting carbohydrate with you. documented in this encounter Ordered Prescriptions Prescription Sig Dispense Quantity Refills Last Filled Start Date End Date FreeStyle Viviane 3 Plus Sensor device 1 Device continuously E11.65 6 each 4 02/25/2024 documented in this encounter Progress Notes * Malini Cummins NP - 02/25/2024 7:30 AM CDT Images from the original note were not included. Patient ID: Lilli Santos is a 28 y.o. female. Chief Complaint Diabetes Type 2 Today visit is a follow up visit for treatment of Type 2 Diabetes. she was diagnosed with Diabetes in 2019 and started insulin 2021 and weaned off insulin with weight loss in 04/18. she exercises by lifting weights and goes to the gym 5/7 days. she eats 2 meals/day and snacks. she monitors blood sugar continuously with freestyle viviane 3. She denies hypoglycemia. her weight has increased by 12 lbs.since her last office visit. she reports medication compliance is good. She is not taking any medications except for metformin. Her is with her today and is very supportive. Today's visit is to review labs and discuss future plan Diabetes regimen includes: Metformin 1000 mg bid. Did not tolerate Trulicity. Subjective/Objective Review of Systems Constitutional: Negative for activity change, appetite change, fatigue and unexpected weight change. HENT: Negative for congestion and sinus pressure. Eyes: Negative for pain and visual disturbance. Respiratory: Negative for cough, shortness of breath and wheezing. Cardiovascular: Negative for chest pain and leg swelling. Gastrointestinal: Negative for abdominal pain, diarrhea, nausea and vomiting. Endocrine: Negative for polydipsia, polyphagia and polyuria. Genitourinary: Negative for difficulty urinating and frequency. Musculoskeletal: Negative for arthralgias. Neurological: Negative for dizziness and numbness. Psychiatric/Behavioral: Negative for confusion. The patient is not nervous/anxious. Physical Exam Constitutional: Appearance: Normal appearance. She is obese. HENT: Head: Normocephalic. Right Ear: External ear normal. Left Ear: External ear normal. Nose: Nose normal. Mouth/Throat: Mouth: Mucous membranes are moist. Pulmonary: Effort: Pulmonary effort is normal. Skin: General: Skin is warm and dry. Neurological: Mental Status: She is alert and oriented to person, place, and time. Labs: Lab Results Component Value Date HGBA1C 6.6 02/25/2024 HGBA1C 6.0 07/14/2023 HGBA1C 6.8 04/14/2023 HGBA1C 9.8 12/18/2022 HGBA1C 8.1 (H) 07/02/2022 HGBA1C 14.0 05/12/2022 Chemistry Lab Results Component Value Date SODIUM 139 07/14/2023 POTASSIUM 4.0 07/14/2023 CHLORIDE 102 07/14/2023 CO2 27 07/14/2023 ANIONGAP 10 07/14/2023 BUNSER 13 07/14/2023 CREATININE 0.84 07/14/2023 GLUCOSE 124 07/14/2023 CALCIUM 9.8 07/14/2023 BILITOT 0.3 07/14/2023 ALBUMIN 4.3 07/14/2023 GFRNAA 96 07/14/2023 ALKPHOS 68 07/14/2023 AST 40 07/14/2023 ALT 37 07/14/2023 MAGNESIUM 2.0 05/14/2020 Lab Results Component Value Date ALBUMINUR 20.2 07/14/2023 CREATININEUR 437.5 07/14/2023 ALBCREATRATU 5 07/14/2023 Lab Results Component Value Date CHOL 167 07/14/2023 HDL 38 (L) 07/14/2023 TRIG 149 07/14/2023 LDLCALC 99 07/14/2023 Lab Results Component Value Date TSH 2.21 07/14/2023 TSH 1.49 09/02/2022 Assessment/Plan Diagnoses and all orders for this visit: Type 2 diabetes mellitus without complication, without long-term current use of insulin ([facility]) ([facility]) (Primary) Assessment & Plan: This is a chronic condition which is at goal . Goal is less than 7%. Personally reviewed most recent A1c - Lab Results Component Value Date HGBA1C 6.6 02/25/2024 Personally reviewed POC blood sugar- at goal of 80-180 Lab Results Component Value Date POCGLU 170 02/25/2024 Medication- metformin 1000mg bid Monitor blood sugar daily, 3 times /week Encouraged annual eye exam. Monofilament foot exam completed. Protective senses -intact eGFR- 96 Kidney function-at goal Urine microalbumin/creatinine ratio - at goal. Goal is <30 not treated with LUCAS/ARB Orders: - POCT glucose - POCT hemoglobin A1c Class 1 obesity due to excess calories with serious comorbidity and body mass index (BMI) of 33.0 to 33.9 in adult Assessment & Plan: This is a chronic condition which continues to worsen 12 lbs. Weight gain since last office visit Did not tolerate Trulicity Encouraged healthy eating which includes a low carb diet. Avoiding processed foods, sweets and fried foods. Encouraged 30 minutes of walking at least 5 days per week Discussed snacking options. Verbalized understanding Other orders - FreeStyle Viviane 3 Plus Sensor device; 1 Device continuously E11.65 Discussed taking a multivitamin with vitamin-D in it [id number]. Encouraged to take at least 1000 mg of vitamin-D daily. Verbalized understanding Discussed and educated on eating a healthy low carb diet, include fresh fruits and vegetables daily. Encouraged to try moving at least a total of 30 minutes/day. Just move more. Instructed to wash, dry lotion and check feet daily. Discussed importance of avoiding hypoglycemia and treatment of hypoglycemia. Instructed to notify office if blood sugars are less than 80 or greater than 250 for 3 days Discussion of treatment plan and prescribed medications. Return in about 6 months (around 08/24/2024). Malini Cummins NP documented in this encounter Miscellaneous Notes * Assessment & Plan Note - Malini Cummins NP - 02/25/2024 7:58 AM CDTAssociated Problem(s): Class 1 obesity due to excess calories with serious comorbidity and body mass index (BMI) of 33.0 to 33.9 in adult This is a chronic condition which continues to worsen 12 lbs. Weight gain since last office visit Did not tolerate Trulicity Encouraged healthy eating which includes a low carb diet. Avoiding processed foods, sweets and fried foods. Encouraged 30 minutes of walking at least 5 days per week Discussed snacking options. Verbalized understanding * Assessment & Plan Note - Malini Cummins NP - 02/25/2024 7:57 AM CDTAssociated Problem(s): Type 2 diabetes mellitus without complication, without long-term current useof insulin ([facility]) ([facility]) This is a chronic condition which is at goal . Goal is less than 7%. Personally reviewed most recent A1c - Lab Results Component Value Date HGBA1C 6.6 02/25/2024 Personally reviewed POC blood sugar- at goal of 80-180 Lab Results Component Value Date POCGLU 170 02/25/2024 Medication- metformin 1000mg bid Monitor blood sugar daily, 3 times /week Encouraged annual eye exam. Monofilament foot exam completed. Protective senses -intact eGFR- 96 Kidney function-at goal Urine microalbumin/creatinine ratio - at goal. Goal is <30 not treated with LUCAS/ARB documented in this encounter Plan of Treatment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 documented as of this encounter Goals Goal Patient Goal Type Associated Problems Recent Progress Patient-Stated? Author CCM Chronic Pain Care Plan Chronic Care Management Worsening( 9:56 AM CDT) No Raiza Drummond, RN Note: Problem: Chronic Pain Goals: 1. Minimize further functional decline 2. Maximize quality of life 3. Control pain Strategies: - Activity/exercise program recommendation - Conservative stepwise pain medicine strategy with multi-disciplinary approach - Recommend healthy lifestyle strategies and compensatory methods as needed documented as of this encounter Procedures Procedure Name Priority Date/Time Associated Diagnosis Comments POCT HEMOGLOBIN A1C Routine 02/25/2024 7 :40 AM CDT Type 2 diabetes mellitus without complication, without long-term current use of insulin ([facility] ([facility]) POCT GLUCOSE Routine 02/25/2024 7:39 AM CDT Type 2 diabetes mellitus without complication, without long-term current use of insulin ([facility]) ([facility]) documented in this encounter Results * POCT hemoglobin A1c (02/25/2024 7:40 AM CDT) Hemoglobin A1C, POC 6.6 4.0 - 5.6 % Blood 02/25/2024 7:40 AM CDT Malini Cummins RATE AND COST ANALYST POINT OF CARE TEST ORDERABLES F inal Result * POCT glucose (02/25/2024 7:39 AM CDT) Glucose Blood, POC 170 mg/dL Blood 02/25/2024 7:39 AM CDT us Malini Cummins NP POINT OF CARE TEST ORDERABLES F inal Result documented in this encounter Visit Diagnoses Diagnosis Type 2 diabetes mellitus without complication, without long-term current use of insulin ([facility]) ([facility])- Primary Class 1 obesity due to excess calories with serious comorbidity and body mass index (BMI) of 33.0 to 33.9 in adult documented in this encounter Discontinued Medications Medication Sig Discontinue Reason Start Date End Da te bacitracin 500 unit/gram ointment Apply topically 2 (two) times a day Therapy completed 12/04/2023 02/25/2024 famotidine (PEPCID) 20 mg tablet Take 1 tablet (20 mg total) by mouth 2 (two) times a day Therapy completed 11/04/2023 02/25/2024 fluconazole (DIFLUCAN) 150 mg tablet Take by mouth once Therapy completed 08/10/2023 02/25/2024 hydrocortisone 2.5 % ointment Apply topically 2 (two) times a day Therapy completed 11/04/2023 02/25/2024 albuterol HFA (PROVENTIL HFA,VENTOLIN HFA,PROAIR HFA) 90 mcg/actuation inhaler Inhale 2 puffs every 4 (four) hours as needed for wheezing Therapy completed 05/14/2020 02/25/2024 ascorbic acid (VITAMIN C) 500 mg tablet,chewable Take 1 tablet/chew tab (500 mg total) by mouth 2 (two) times a day Therapy completed 05/13/2023 02/25/2024 cariprazine (Vraylar) 3 mg capsule capsule 1 capsule (3 mg total) daily Therapy completed 02/25/2024 cholecalciferol (Vitamin D3) 2000 unit tablet Take 1 tablet (2,000 Units total) by mouth daily Therapy completed 05/13/2023 02/25/2024 Dexcom G7 Sensor deviceIndications:Typ e 2 diabetes mellitus without complication, without long-term current use of insulin ([facility]) ([facility]) 1 Device continuously . Change every 10 days. E11.9 Therapy completed 07/14/2023 02/25/2024 albuterol HFA (PROVENTIL HFA,VENTOLIN HFA,PROAIR HFA) 90 mcg/actuation inhaler Inhale 2 puffs every 4 (four) hours as needed for wheezing Therapy completed 05/14/2020 02/25/2024 ascorbic acid (VITAMIN C) 500 mg tablet,chewable Take 1 tablet/chew tab (500 mg total) by mouth 2 (two) times a day Therapy completed 05/13/2023 02/25/2024 bacitracin 500 unit/gram ointment Apply topically 2 (two) times a day Therapy completed 12/04/2023 02/25/2024 cariprazine (Vraylar) 3 mg capsule capsule 1 capsule (3 mg total) daily Therapy completed 02/25/2024 cholecalciferol (Vitamin D3) 2000 unit tablet Take 1 tablet (2,000 Units total) by mouth daily Therapy completed 05/13/2023 02/25/[address] (CYMBALTA) 30 mg capsule Take 1 capsule every day by oral route. Therapy completed 02/25/2024 famotidine (PEPCID) 20 mg tablet Take 1 tablet (20 mg total) by mouth 2 (two) times a day Therapy completed 11/04/2023 02/25/2024 gabapentin (NEURONTIN) 300 mg capsule Take 2 capsules (600 mg total) by mouth 3 (three) times a day Therapy completed 09/30/2023 02/25/2024 hydrocortisone 2.5 % ointment Apply topically 2 (two) times a day Therapy completed 11/04/2023 02/25/2024 hydrOXYzine (ATARAX) 25 mg tablet Take 1 tablet (25 mg total) by mouth 3 (three) times a day Therapy completed 11/04/2023 02/25/2024 ibuprofen (ADVIL,MOTRIN) 800 mg tablet Take 1 tablet (800 mg total) by mouth every 8 (eight) hours as needed for pain Therapy completed 12/28/2023 02/25/2024 insulin lispro (HumaLOG) 100 unit/mL pen for injection Use as directed before meals, max 20 units per day Therapy completed 05/12/2022 02/25/2024 lamoTRIgine (LaMICtal) 200 mg tablet TAKE 1 TABLET BY MOUTH EVERY DAY FOR 30 DAYS Therapy completed 06/03/2023 02/25/2024 LANTUS 100 unit/mL (3 mL) pen for injection 20 Units daily Therapy completed 03/27/2022 02/25/20 M-Anel Plus 27 mg iron- 1 mg tablet Take 1 tablet by mouth daily Therapy completed 03/26/2023 02/25/2024 methocarbamoL (ROBAXIN) 500 mg tablet Take 1 tablet (500 mg total) by mouth 2 (two) times a day as needed for muscle spasms Therapy completed 11/04/2023 02/25/2024 nicotine 21-14-7 mg/24 hr patch, TD daily, sequentialIndications :Smoking Cessation Place one patch to skin daily: 21 mg/24 hr for 28 days, 14 mg/24 hr for 14days, 7 mg/24 hr for 14 days. E11.9 Therapy completed 07/14/2023 02/25/2024 nicotine, polacrilex, 4 mg mini lozengeIndications:Sm oking Cessation Apply 1 tablet to cheek as needed (for break through nicotine craving.) Therapy completed 07/14/2023 02/25/2024 ondansetron (ZOFRAN) 4 mg tablet Every 4-6 hours as needed Therapy completed 05/13/2023 02/25/2024 OneTouch Delica Plus Lancet 33 gauge misc Therapy completed 03/27/2022 OneTouch Ultra Test strip Use to check sugars 3 x per day Therapy completed 05/12/2022 02/25/2024 QUEtiapine (SEROquel) 400 mg tablet TAKE 1 TABLET BY MOUTH DAILY NEEDED FOR SLEEP Therapy completed 07/21/2023 02/25/2024 senna-docusate (PERICOLACE) 8.6-50 mg 1-2 times daily as needed for constipation Therapy completed 05/13/2023 02/25/2024 TRUEplus Pen Needle 32 gauge x 5/32 needle Use 3 per day for insulin pen Therapy completed 05/12/2022 02/25/2024 documented as of this encounter Care Teams Cleaning Matron Relationship Specialty Start Date End Date Jessica Navarro NP [address] [place] [address] PCP - General 08/23/20 Ophelia Ashraf MD [address] [place] [address] Consulting Physician Endocrinology 04/15/23 documented as of this encounter
--- OUTSIDE RECORDS SUMMARY | 2024-04-14 18:30 | XMS_ITS | Encounter Summary ---
Author Organization [facility] Healthcare Address [address] [place] [address] Care Team Providers Care Bow Machine Operator Name Role Phone Jessica Navarro NP Primary Care Provider + [phone] Ophelia Ashraf MD Unavailable [phone] Encounter Details Date Type Department Care Team (Late st Contact Info) Description 12/09/2023 Documentation [facility] [address] [place] [id number] Garima Novak OT Social History Tobacco Use Types Packs/Day Years [...] making you feel afraid or unsafe? 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 POC was established and appointments scheduled. However, patient has several no show appointments and was ultimately discharged from services. She has not reached back out to reschedule and no additional orders were received. She is discharged from skilled OT under my care at this time. Garima Novak OT 12/09/23 documented in this encounter Plan of Treatment [...] as needed documented as of this encounter Visit Diagnoses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documented in this encounter Care Teams Bow Machine Operator Relationship Specialty Start Date End Date Jessica Navarro NP [address] [place] [address] PCP - General 08/23/20 Ophelia Ashraf MD [address] [facility] [address] [place] [id number] Consulting Physician Endocrinology 04/15/23 documented as of this encounter
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
--- OUTSIDE RECORDS SUMMARY | 2024-04-14 18:30 | XMS_ITS | Clinical Summary ---
Author Organization [facility] Address [address] [place] [address] Care Team Providers Care Record Clerk Name Role Phone Jessica Navarro NP Primary Care Provider + [phone] Ophelia Ashraf MD Unavailable [phone] Allergies Active Allergy Reactions Criticality Noted Date Comments Mena Shortness of breath High 05/14/2020 Medications medroxyPROGESTERon e (PROVERA) 10 mg tabletIndications: Secondary oligomenorrhea Take 1 tablet (10 mg total) by mouth daily for 10 days 10 tablet 08/25/19 24 Active metFORMIN (GLUCOPHAGE) 500 mg tablet Take 2 tablets (1,000 mg total) by mouth 2 (two) times a day 360 tablet 1 02/01/20 24 Active FreeStyle Viviane 3 Sensor device 1 Device continuously Change every 14 days. E11.65 2 each 11 02/29/20 24 Active Active Problems Problem Noted Date Diagnosed Date freestyle viviane 2 continuous glucose monitoring device 07/14/2023 Assessment & Plan (07/14/2023 8:33 AM CDT): Continuous glucose monitor (cgm) applied from 06/11/2023 to 06/24/2023 This device was placed for monitor and treatment of blood sugar. Interpretation of data- average glucose 116. In target range 99%. 0 hypoglycemia. 1% hyperglycemia Infertility counseling 05/28/2023 Overview (02/05/2024): Patient has a long history of infertility with no positive test secondary to PCOS. Workup has included pelvic ultrasound with signs of PCOS, normal HSG, normal TSH and Hgb A1c with subsequent treatment of newly diagnosed T2DM. AMH 16. Has done many ovulation kits and timed intercourse without success.Previously counseled that cause of infertility likely anovulation in the setting of PCOS. Has tried letrozole 2.5mg x5 day for 2 cycles in the spring without successful . Interested today in trying increased letrozole dose. -Will start letrozole 5mg PO daily x5 days Cycle Day (CD) #3-7, timed intercourse daily to every other day CD #10-20, lab draw for progesterone on CD #21 to assess for ovulation -If no menses by CD #40, take test. If negative, take provera 10mg PO daily x10d. -Referral placed for PIO as this would be 3rd letrozole cycle Assessment & Plan (05/28/2023 9:49 AM REAL ESTATE PHOTOGRAPHER): -Ordered AMH and FSH -Pending results, discussed initiation of letrozole -Plan for letrozole 2.5mg PO daily x5 days Cycle Day (CD) #3-7, timed intercourse daily to every other day CD #10-20, lab draw for progesterone on CD #21 -If no ovulation per progesterone test, will uptitrate letrozole to 5mg (max 7.5mg) -If no menses by CD #40, take test. If negative, take provera 10mg PO daily x10d. -If no achieved by these methods in ~3 months, will refer to PIO -Continue management of T2DM per primary -Can check VZV IgG and Rubella IgG with next labs -Recommend continuing vitamin De Quervain's tenosynovitis 05/04/2023 Carpal tunnel syndrome on right 05/04/2023 Macromastia 08/29/2022 Benign thyroid cyst 04/14/2022 Acquired deformity of left toe 03/29/2020 Overview (03/29/2020): Added automatically from request for surgery [id number] ELLI (obstructive sleep apnea) 03/01/2019 Tobacco use disorder 03/01/2019 Assessment & Plan (07/14/2023 8:54 AM CDT): She is still smoking, but wants to stop as she is trying to get Nicotine patches and lozenges yrs ordered Encouraged her to use the patches as per the manufacture guidelines Use the lozenges for breakthrough feelings of needing a cigarette Verbalized understanding She has use the patches in the past Large breasts 11/12/2018 Mixed anxiety and depressive disorder 10/19/2018 PCOS (polycystic ovarian syndrome) 10/19/2018 Abdominal pain 02/05/2018 Type 2 diabetes mellitus wit hout complication, without long-term current use of insulin ([facility]) 02/05/2018 Assessment & Plan (02/25/2024 7:57 AM CDT): This is a chronic condition which is [...] Goal is <30 not treated with LUCAS/ARB Assessment & Plan (07/14/2023 8:53 AM CDT): This is a chronic condition which is at goal of less than 7% with weight loss. Personally reviewed most recent A1c - Lab Results Component Value Date HGBA1C 6.0 07/14/2023 Personally reviewed POC blood sugar- at goal 80-180 Lab Results Component Value Date POCGLU 137 07/14/2023 Medication- Continue metformin 1000mg bid Monitor blood sugar continuously with dexcom 7 sensor. Encouraged annual eye exam. Personally reviewed CMP eGFR- >90 Kidney function- normal Urine microalbumin/creatinine ratio - at goal <30 not treated with LUCAS/ARB B/P today- at goal of <140/90. Personally reviewed lipid panel. Not at Goal of less than 70. Not on statin therapy, trying to get Assessment & Plan (04/14/2023 11:13 AM REAL ESTATE PHOTOGRAPHER): Diagnosed in 2019 Started insulin in 2021 Did not tolerate Trulicity. Control : improved control and started to have hypoglycemia while on insulin A1c 6.8% on 04/14/23 A1c 9.8% on 12/18/22 A1c 8.1% on 07/02/22 A1c 14% on 05/12/22 Kidney: GFR > 90 on 04/10/23 Plan: Continue diet plan. Continue Metformin 1000 mg bid. Monitor sugars 4 x per day - use CGM Can start back on Lantus insulin 5 units Qhs, if am sugars stayed above 200. Hypoglycemia symptoms and treatment reviewed with patient. Call if having low sugars. Ophthalmology exam on regular basis. She will follow up with high school business teacher if she gets . Assessment & Plan (12/18/2022 1:58 PM CDT): Diagnosed in 2019 Started insulin in 2021 Control : not controlled - was out of insulin in October and did not stay on trulicity A1c 9.8% on 12/18/22 A1c 8.1% on 07/02/22 A1c 14% on 05/12/22 Kidney: GFR 123 on 08/31/22 Plan: Stressed on importance of taking insulin and not to run out Patient to watch diet Start back on Trulicity 0.75 mg /week- side effects explained- stop if having nausea , vomiting or abdominal pains. Patient can use Humalog insulin with each meal tid if eating 3 meal 4 units Qam, 4 units with lunch and 8 units Qpm Continue Lantus insulin 20 units Qhs Continue Metformin 1000 mg bid. Monitor sugars 4 x per day - use CGM Hypoglycemia symptoms and treatment reviewed with patient. Call if having low sugars. Ophthalmology exam on regular basis. Assessment & Plan (09/02/2022 11:36 AM CDT): Diagnosed in 2019 Started insulin in 2021 Control : above target, due to non-compliance with diet. A1c 8.1% on 07/02/22 A1c 14% on 05/12/22 Kidney: GFR 122 on 01/23/22 Plan: Refer patient to dietitian. Patient to cut down on carbs. We will check labs and consider adding GLP-1 Patient can use Humalog insulin with each meal tid if eating 3 meal 4 units Qam, 4 units with lunch and 8 units Qpm Continue Lantus insulin 20 units Qhs Continue Metformin 1000 mg bid. Monitor sugars 4 x per day - use CGM Hypoglycemia symptoms and treatment reviewed with patient. Call if having low sugars. Ophthalmology exam on regular basis. Assessment & Plan (06/02/2022 2:12 PM REAL ESTATE PHOTOGRAPHER): Diagnosed in 2019 Started insulin in 2021 Control : above target, but improved since pre-meal Humalog was added. A1c 14% on 05/12/22 Kidney: GFR 122 on 01/23/22 Plan: Refer patient to dietitian. Patient can use Humalog insulin with each meal tid if eating 3 meal 4 units Qam, 4 units with lunch and 8 units Qpm Continue Lantus insulin 20 units Qhs Continue Metformin 1000 mg bid. Monitor sugars 4 x per day - use CGM Hypoglycemia symptoms and treatment reviewed with patient. Call if having low sugars. Ophthalmology exam on regular basis. Assessment & Plan (05/12/2022 2:11 PM REAL ESTATE PHOTOGRAPHER): Diagnosed in 2019 Started insulin in 2021 Control : in poor control A1c 14% on 05/12/22 Kidney: GFR 122 on 01/23/22 Plan: Refer patient to dietitian. Start Humalog insulin 4 units Qam and 8 units Qpm Continue Lantus insulin 20 units Qhs Continue Metformin 1000 mg bid. Monitor sugars 3 x per day and send records in one week. Hypoglycemia symptoms and treatment reviewed with patient. Call if having low sugars. Ophthalmology exam on regular basis. Chronic back pain 09/23/2017 Oligomenorrhea 05/12/2017 Asthmatic bronchitis 12/16/2016 Mild intermittent asthma 12/16/2016 Class 1 obesity due to exces s calories with serious comorbidity and body mass index (BMI) of 33.0 to 33.9 in adult 12/16/2016 Assessment & Plan (02/25/2024 7:58 AM CDT): This is a chronic condition which continues to worsen 12 lbs. Weight gain since last office visit Did not tolerate Trulicity Encouraged healthy eating which includes a low carb diet. Avoiding processed foods, sweets and fried foods. Encouraged 30 minutes of walking at least 5 days per week Discussed snacking options. Verbalized understanding Assessment & Plan (07/14/2023 8:55 AM CDT): This is a chronic condition which is improving 13 lb weight loss since last office visit Encourage continue healthy eating and exercise Lymphadenopathy of head and neck region 06/13/19 17 Encounters Date Type Department Care Team Description 02/25/2024 7:30 AM CDT Office Visit [facility] at [address] [phone] Malini Cummins, ANA LILIA Type 2 diabetes mellitus without complication, without long-term current use of insulin (CMS/HCC) (HCC) (Primary Dx); Class 1 obesity due to excess calories with serious comorbidity and body mass index (BMI) of 33.0 to 33.9 in adult 02/04/2024 2:30 PM CDT Office Visit [facility] [address] [place] [address] Health 3rd Floor [address] [place] [address] Georgia Leonard MD Infertility counseling from Last 3 Months Immunizations Name Administration Dates Next Due Tdap 12/04/2023 Surgical History Surgery Date Site/Laterality Comments BREAST SURGERY breast reduction THYROID SURGERY Right ANKLE SURGERY Left FL FLUORO GUIDED LUMBAR PUNCTURE 03/01/2021 Right FL FLUORO GUIDED LUMBAR PUNCTURE 04/08/2021 Right ARM SURGERY Right 2 separate surgeries to remove extra tissue under the right armpit WISDOM TOOTH EXTRACTION CARPAL TUNNEL RELEASE REDUCTION MAMMAPLASTY 04/27/2011 - 04/26/2012 Bilateral 2018-more right axillary tissue removed Medical History Medical History Date Comments Asthma GERD (gastroesophageal reflux disease) Anxiety Depression Thyroid disease Diabetes mellitus (HCC) Rheumatoid arthritis (HCC) Bipolar disorder (HCC) Low back pain Fatigue Poor appetite Ankle swelling Heartburn Diarrhea Muscle pain Joint swelling Headache Depression Anxiety Suicidal ideation Family History Medical History Relation Name Comments No Known Problems Father No Known Problems Mother Arthritis Other Cancer Other Diabetes Other Heart disease Other Hypertension Other Breast cancer Neg Hx Ovarian cancer Neg Hx Thyroid cancer Neg Hx Relation Name Status Comments Father Alive Mother Alive Other Social History Tobacco Use Types Packs/Day Years [...] 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[employer]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 N ot on file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 Obstetrics History Para Term AB IAB SAB Ectopic Multiple Livin g Live Births 0 0 0 0 0 0 0 0 0 0 0 Last Filed Vital Signs Vital Sign Reading Time Taken Comments Blood Pressure 132/74 02/25/2024 7:45 AM CDT Pulse 87 02/04/2024 3:03 PM CDT Temperature 36.8 ??C (98.2 ??F) 02/04/2024 3:03 PM CD T Respiratory Rate 20 12/28/2023 12:36 PM CDT Oxygen Saturation 100% 02/04/2024 3:03 PM CDT Inhaled Oxygen Concentration - - Weight 86.2 kg (190 lb 1.6 oz) 02/25/2024 7:38 A M CDT Height 160 cm (5' 3 ) 02/25/2024 7:38 AM CDT Body Mass Index 33.67 02/25/2024 7:38 AM CDT Plan of Treatment Health Maintenance Due Date Last Done Comments Cervical Cancer Screening 1993 Depression Screening 1993 Hepatitis C Screening 1993 Pneumococcal vaccine <65 (1 of 2 - PCV) 1999 Regular Well Visit/Exam 18-64 2011 Foot Exam 12/19/2023 12/18/2022, 05/0 12/2022, 06/02/2022, Additional history exists Covid-19 Vaccine (3 - 2023-2 5 season) 2023 08/16/2020, 07/19/2020 Influenza Vaccine (#1) 2023 3, 02/21/2021, 02/28/2020, Additional history exists Dilated Eye Exam 05/26/2024 05/26/2023 Albumin Creatinine Ratio, Urine 07/13/2024 4, 09/02/2022 Lipid Panel 07/13/2024 07/14/2023, 09/02/2022 eGFR 07/13/2024 07/14/2023, 03/27, 12/28/2022, Additional history exists Hemoglobin A1C 08/24/2024 02/25/2024, 06/25, 04/14/2023, Additional history exists DTaP/Tdap/Td Vaccine (11 - T d or Tdap) 12/03/2033 12/04/2023, 01/16/2018, 05/20/2016, Additional history exists HPV Vaccines Completed 2007, 10/25, 09/07/2006 Varicella Vaccines Completed 11/17/2008, 04/01/2001 Goals Goal Patient Goal Type Associated Problems [...] lifestyle strategies and compensatory methods as needed Procedures Procedure Name Priority Date/Time Associated Diagnosis Comments POCT HEMOGLOBIN A1C Routine 02/25/2024 7 :40 AM CDT Type 2 diabetes mellitus without complication, without long-term current use of insulin ([facility]/H[facility]) ([facility]) POCT GLUCOSE Routine 02/25/2024 7:39 AM CDT Type 2 diabetes mellitus without complication, without long-term current use of insulin (CMS/HCC) ([facility]) POCT HCG, URINE Routine 02/04/2024 3:00 PM CDT Infertility counseling EGFR Routine 07/14/2023 8:54 AM CDT Type 2 diabetes mellitus with hyperglycemia, with long-term current use of insulin ([facility]) ([facility]) LIPID PANEL Routine 07/14/2023 8:54 AM CDT Type 2 diabetes mellitus with hyperglycemia, with long-term current use of insulin ([facility]) ([facility]) ALBUMIN CREATININE RATIO, URINE Routine 07/14/2023 8:54 AM CDT Type 2 diabetes mellitus with hyperglycemia, with long-term current use of insulin ([facility]) ([facility]) DIABETIC EYE EXAM Routine 05/26/2023 from Last 3 Months or Most Recently Relevant to Health Maintenance Results * POCT hemoglobin A1c (02/25/2024 7:40 AM CDT) Hemoglobin A1C, POC 6.6 4.0 - 5.6 % Blood 02/25/2024 7:40 AM CDT us Malini Cummins NP POINT OF CARE TEST ORDERABLES F inal Result * POCT glucose (02/25/2024 7:39 AM CDT) Glucose Blood, POC 170 mg/dL Blood 02/25/2024 7:39 AM CDT us Malini Cummins NP POINT OF CARE TEST ORDERABLES F inal Result * POCT hCG, urine (02/04/2024 3:00 PM CDT) HCG, ur, POC Negative Negative Lot Number [id number] QC Backgroud Clear Acceptable QC Control Line Acceptable Urine 02/04/2024 3:00 PM CDT us Georgia Tavarez MD POINT OF CARE TE ST ORDERABLES Final Result * eGFR (07/14/2023 8:54 AM CDT) eGFR 96 mL/min/1. 73 m2 Comment: Interpretive Data Reference Interval Normal ?>/= 90 mL/min/1.73m2 Mildly decreased* ? 60 - 89 mL/min/1.73m2 Mildly to moderately decreased ?45 - 59 mL/min/1.73m2 Moderately to severely decreased ??30 - 44 mL/min/1.73m2 Severely decreased ?15 - 29 mL/min/1.73m2 Kidney Failure ?< 15 ??mL/min/1.73m2 *Relative to young adult level Estimated glomerular filtration rate is determined by the 2020 CKD-EPI equation recommended by the National Kidney Foundation (A Unifying Approach to GFR Estimation: Recommendations of the NKF-ASK Task Force on Reassessing the Inclusion of Race in Diagnosing Kidney Disease, JASN 2020). The CKD-EPI equation should not be used for patients with unstable renal function and has not been validated in children and those over 70. Current interpretive data was last reviewed 2021. Blood 07/14/2023 8:54 AM CDT 07/14/2023 11:02 AM CDT us Malini Cummins NP LAB BLOOD ORDERABLES Final Resu lt ILDA ARGUELLES (LAMINE) 1 [facility] Department [place] [address] * Albumin Creatinine Ratio, Urine (07/14/2023 8:54 AM CDT) Albumin Ur 20.2 mg/L Comment: Interpretive Data No reference range established. Current interpretive data was last revised 2018. Testing performed by: [facility], [address] [place] [address]., [id number] Creatinine Ur 437.5 mg/dL ILDA ARGUELLES (LAMINE) Comment: Interpretive Data No reference range established. Current interpretive data was last revised 2018. Testing performed by: [facility], [address] [place] [address]., [id number] Albumin Creatinine Ratio, Ur 5 1 - 29 mg/g ILDA ARGUELLES (LAMINE) Comment:Testing performed by : [address] [address] Urine 07/14/2023 8:54 AM CDT 07/14/2023 3:58 PM CDT us Malini Cummins BIOMED TECH LAB URINE ORDERABLES Final Resu lt Performing Organization Address [facility] de Phone Number ILDA ARGUELLES (LAMINE) 1 [facility] Department [place] [address] * (ABNORMAL) Lipid panel (07/14/2023 8:54 AM CDT) Cholesterol 167 30 - 199 mg/dL Comment: Interpretive Data Ages < or = 19 years ??Acceptable: ? <170 mg/dL ??Borderline high: ??170-199 mg/dL ??High: ? >or= 200 mg/dL Ages > or = 20 years ??Desirable: ?<200 mg/dL ??Borderline high: ??200-239 mg/dL ??High: ? >or= 240 mg/dL Literature References: 1. Expert Panel on Integrated Guidelines for Cardiovascular Health and Risk Reduction in Children and Adolescents. Pediatrics 2011;128:S213 2. NCEP Expert Panel. Circulation 2004;110:227 Current Interpretive Data was last revised on 2017. Triglycerides 149 <=149 mg/dL ILDA ARGUELLES (LAMINE) Comment: Interpretive Data Ages < or = 9 years ??Acceptable: ? <75 mg/dL ??Borderline high: ??75-99 mg/dL ??High: ? >or= 100 mg/dL Ages 10 to 20 years ??Acceptable: ? <90 mg/dL ??Borderline high: ??90-129 mg/dL ??High: ? >or= 130 mg/dL Ages > or = 20 years ??Desirable: ?<150 mg/dL ??Borderline high: ??150-199 mg/dL ??High: ? 200-499 mg/dL ?Very high: ?? >or= 499 mg/dL Literature References: 1. Expert Panel on Integrated Guidelines for Cardiovascular Health and Risk Reduction in Children and Adolescents. Pediatrics 2011;128:S213 2. NCEP Expert Panel. Circulation 2004;110:227 Current Interpretive Data was last revised on 2017. HDL 38(L) >=40 mg/dL ILDA Ramirez (LAMINE) Comment: Interpretive Data Ages < or = 19 years ??Acceptable: ? >45 mg/dL ??Borderline low: ?? 40-45 mg/dL ??Low: ? <40 mg/dL Ages > or = 20 years ??Desirable: ?>or= 60 mg/dL ??Low: ? <40 mg/dL Literature References: 1. Expert Panel on Integrated Guidelines for Cardiovascular Health and Risk Reduction in Children and Adolescents. Pediatrics 2011;128:S213 2. NCEP Expert Panel. Circulation 2004;110:227 Current Interpretive Data was last revised on 2017. LDL, calculated 99 <=129 mg/dL ILDA ARGUELLES (LAMINE) Comment: Interpretive Data Ages < or = 19 years ??Acceptable: ? <110 mg/dL ??Borderline high: ??110-129 mg/dL ??High: ?>or= 130 mg/dL Ages > or = 20 years ??Optimal: ? <100 mg/dL ??Near optimal: ?100-129 mg/dL ??Borderline high: ?? 130-159 mg/dL ??High: ?>160 mg/dL Literature References: 1. Expert Panel on Integrated Guidelines for Cardiovascular Health and Risk Reduction in Children and Adolescents. Pediatrics 2011;128:S213 2. NCEP Expert Panel. Circulation 2004;110:227 Current Interpretive Data was last revised on 2017. Non-HDL Cholesterol 129 mg/dL ILDA ARGUELLES (LAMINE) Comment: Interpretive Data Ages < or = 19 years ??Acceptable: ?<120 mg/dL ??Borderline high: ??120-144 mg/dL ??High: ?>145 mg/dL Ages > or = 20 years ??When triglycerides are >200 mg/dL, Non-HDL cholesterol is a secondary target of ? therapy with treatment goals that are 30 mg/dL greater than the LDL cholesterol target. ? Literature References: 1. Expert Panel on Integrated Guidelines for Cardiovascular Health and Risk Reduction in Children and Adolescents. Pediatrics 2011;128:S213 2. NCEP Expert Panel. Circulation 2004;110:227 Current Interpretive Data was last revised on 2017. Chol/HDL ratio 4 XIMENA ARGUELLES (LAMINE) Blood 07/14/2023 8:54 AM CDT 07/14/2023 11:02 AM CDT Narrative ILAD ARGUELLES (LAMINE) - 07/14/2023 11:35 AM CDT These lab test should be done fasting. This means do not eat or drink for at least 12 hours prior to getting your blood drawn. us Malini Cummins NP LAB BLOOD ORDERABLES Final Resu lt ILDA ARGUELLES (LAMINE 1 [facility] [place] [address] * Diabetic Eye Exam (05/26/2023) us Historical Provider MD HEALTH MAINTENANCE Final Result from Last 3 Months or Most Recently Relevant to Health Maintenance Insurance [facility] [address] [place] [address] IDPA IDPA Care Teams Record Clerk Relationship Specialty Start Date End Date Jessica Navarro NP [address] [place] [address] [place] [id number] PCP - General 08/23/20 Ophelia Ashraf MD [address] [facility] [place] [address] [place] [id number] Consulting Physician Endocrinology 04/15/23
--- OUTSIDE RECORDS SUMMARY | 2024-04-14 18:30 | XMS_ITS | Encounter Summary ---
Author Organization [facility] Healthcare Address [address] [place] [address] Care Team Providers Care Gericare Aide Name Role Phone Melanie, Jessica Pinto NP Primary Care Provider [phone] Ophelia Ashraf MD Unavailable Reason for Visit * Reason Comments Sore Throat Encounter Details Date Type Department Care Team (Late st Contact Info) Description 12/28/2023 1:04 PM CDT - 12/28/2023 2:35 PM CDT Emergency [facility] Emergency Department [address] [place] [address] [place] [address] 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 on file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 documented as of this encounter Last Filed Vital Signs Vital Sign Reading Time Taken Comments Blood Pressure 147/74 12/28/2023 12:36 PM CDT Pulse 120 12/28/2023 12:36 PM CDT Temperature 36.7 ??C (98.1 ??F) 12/28/2023 12:36 PM C DT Respiratory Rate 20 12/28/2023 12:36 PM CDT Oxygen Saturation 100% 12/28/2023 12:36 PM CDT Inhaled Oxygen Concentration - - Weight 81.6 kg (180 lb) 12/28/2023 12:36 PM CDT Height 160 cm (5' 3 ) 12/28/2023 12:36 PM CDT Body Mass Index 31.89 12/28/2023 12:36 PM CDT documented in this encounter Discharge Instructions * Attachments The following attachments cannot be sent through Care Everywhere. * Pharyngitis, Strep (Confirmed) (Croatian) documented in this encounter Medications at Time of Discharge penicillin v potassium (VEETID) 500 mg tablet Take 1 tablet (500 mg total) by mouth 3 (three) times a day for 7 days 21 tablet 12/28/2023 4 albuterol HFA (PROVENTIL HFA,VENTOLIN HFA,PROAIR HFA) [...] by mouth daily 30 tablet 05/13/2023 4 amazingtunes G7 Sensor deviceIndication s:Type 2 diabetes mellitus without complication, without long-term current use of insulin (CMS/[facility]) ([facility]) 1 Device continuously . Change every [...] hours as needed for pain 20 tablet 12/28/2023 4 insulin lispro (HumaLOG) 100 unit/mL pen for injection Use as directed before meals, max 20 units per day 15 mL 2 05/12/2022 4 lamoTRIgine (LaMICtal) 200 mg tablet TAKE 1 TABLET BY MOUTH EVERY DAY FOR 30 DAYS 06/03/2023 4 LANTUS 100 unit/mL (3 mL) pen for injection 20 Units daily 03/27/2022 4 M-Anel Plus 27 mg iron- 1 mg [...] Refills Last Filled Start Date End Date penicillin v potassium (VEETID) 500 mg tablet Take 1 tablet (500 mg total) by mouth 3 (three) times a day for 7 days 21 tablet 12/28/2023 01/04/2024 ibuprofen (ADVIL,MOTRIN) 800 mg tablet Take 1 tablet (800 mg total) by mouth every 8 (eight) hours as needed for pain 20 tablet 12/28/2023 02/25/2024 documented in this encounter Discharge Disposition Disposition Code Departure Means Destination Comment s Discharge to home or self care documented in this encounter ED Notes * Ricardo Mcgrath NP - 12/28/2023 1:49 PM CDT HPI Chief Complaint Patient presents with Sore Throat HPI 2:30 PM - Lilli Santos is a 28 y.o. female with past medical history of anxiety, asthma, bipolardisorder, depression, diabetes, GERD, rheumatoid arthritis, and thyroid disease presenting to the ED complaining of sore throat that started last night. Pain worsened this morning and she had difficulty swallowing. She denies any other URI symptoms. No fever, chills, body aches. Has not taken any OTC meds for pain. Denies any known sick contacts. Patient History: Past Medical History: Diagnosis Date [...] or 2 Frequency of Binge Drinking: Never Review of Systems Review of Systems All systems reviewed and are neg or non contributory for this patients presentation today other than as stated in the HPI . Physical Exam ED Triage Vitals [12/28/23 1236] Temp Pulse Resp BP SpO2 36.7 ??C (98.1 ??F) 120 20 147/74 100 % Temp src Heart Rate Source Patient Position BP Location FiO2 (%) Oral Monitor Sitting Right arm -- Height Height Method Weight Weight Method 1.6 m (5' 3 ) Stated 81.6 kg (180 lb) Stated Physical Exam Vitals and nursing note reviewed. Constitutional: Appearance: She is well-developed. HENT: Head: Normocephalic and atraumatic. Mouth/Throat: Pharynx: Uvula midline. Posterior oropharyngeal erythema present. Tonsils: Tonsillar exudate present. 2+ on the right. 2+ on the left. Eyes: Conjunctiva/sclera: Conjunctivae normal. Cardiovascular: Rate and Rhythm: Regular rhythm. Tachycardia present. Pulmonary: Effort: Pulmonary effort is normal. Breath sounds: Normal breath sounds. No wheezing or rales. Musculoskeletal: General: Normal range of motion. Cervical back: Normal range of motion and neck supple. Skin: General: Skin is warm and dry. Neurological: Mental Status: She is alert and oriented to person, place, and time. Procedures [facility] Labs Reviewed STREPTOCOCCUS GROUP A PCR - Abnormal Result Value Strep A DNA Detected (*) No orders to display BP 147/74 (BP Location: Right arm, Patient Position: Sitting) Pulse 120 Temp 36.7 ??C (98.1 ??F) (Oral) Resp 20 Ht 160 cm (5' 3 ) Wt 81.6 kg (180 lb) LMP 12/09/2023 SpO2 100% BMI 31.89 kg/m?? [facility] Patient complains of sore throat that started last night. Pain worsened this morning and she had difficulty swallowing. She denies any other URI symptoms. No fever, chills, body aches. Has not taken any OTC meds for pain. Denies any known sick contacts. On exam, throat erythematous, tonsils 2+ bilaterally with exudate noted, uvula midline, no palate edema, no trismus Differential diagnosis includes viral pharyngitis, strep pharyngitis, tonsillitis Discussed lab results with the patient, she is positive for strep Discussed plan for discharge. Will treat patient's pain and prescribe antibiotics. She is to follow-up with her PCP in 2 days. Will also give ENT follow-up. Advised to return ED for any new or worsening symptoms. ED Course as of 12/28/23 1430 Time: 12/27 1339 Value: Strep A DNA(!): Detected Comment: (Reviewed) By: Ricardo Mcgrath NP Impression: Strep pharyngitis Ricarod Mcgrath NP 12/28/23 1430 Cosigned by Ankit Worthington MD at 12/28/2023 3:29 PM CDT * Ananda Leach RN - 12/28/2023 12:42 PM CDT Pt states she woke up this morning and felt like throat was closed. Pt c/o of sore throat and some difficulty breathing. documented in this encounter Plan of Treatment [...] Procedure Name Priority Date/Time Associated Diagnosis Comments STREPTOCOCCUS GROUP A PCR STAT 12/28/2023 12:48 PM CDT documented in this encounter Results * (ABNORMAL) Streptococcus Group A PCR Throat (12/28/2023 12:48 PM CDT) Strep A DNA Detected( A) Not Detected Comment: This test is performed using the ActionFlow Xpert Group A Streptococcal Assay. This is a qualitative, real-time PCR assay that detects Group A Strep using throat specimens from patients suspected of having streptococcal pharyngitis. This assay does not detect other beta-hemolytic streptococci including Group C or Group G. ??Group C and G have been associated with pharyngitis and, occasionally, acute nephritis but do not cause rheumatic fever. If suspected, order Throat Culture, Routine. This assay has been cleared by the US Food and Drug Administration, and its performance characteristics have been verified by the performing laboratory. Testing performed by: [facility], [address] [place] [id number] Throat 12/28/2023 12:4 8 PM CDT 12/28/2023 12:55 PM CDT Ankit Worthington MD LAB MICROBIOLOGY - GENERAL ORD ERABLES Final Result ILDA [address] [address] Department [place] [address] documented in this encounter Visit Diagnoses Diagnosis Strep pharyngitis- Primary documented in this encounter Administered Medications Inactive Administered Medications - up to 3 most recent administrations Medication Order MAR Action Action Date Dose Rate Site ibuprofen (ADVIL,MOTRIN) tablet 800 mg 800 mg, oral, Once, On Thu12/28/23 at 1341, For 1 dose Given 12/28/2023 1:44 PM CDT 800 mg penicillin v potassium (VEETID) tablet 500 mg 500 mg, oral, Once, On 12/28/23 at 1341, For 1 dose, Administer on an empty stomach, Indications: Upper Respiratory/HEENT InfectionIndications:Upper Respiratory/HEENT Infection Given 12/28/2023 1:44 PM CDT 500 mg documented in this encounter Discontinued Medications Medication Sig Discontinue Reason Start Date End Da te ketorolac (TORADOL) 10 mg tablet Take 1 tablet (10 mg total) by mouth every 6 (six) hours as needed for pain Alternate therapy 11/04/2023 12/28/2023 ibuprofen (ADVIL,MOTRIN) 800 mg tablet Take 1 tablet (800 mg total) by mouth every 8 (eight) hours as needed for pain 12/04/2023 12/28/2023 documented as of this encounter Active and Recently Administered Medications Times are shown in CDT. Scheduled Medication Order 12/26/2023 12/27/2023 12/28/2023 ibuprofen (ADVIL,MOTRIN) tablet 800 mg (COMPLETED) 800 mg, oral, Once, On Thu12/28/23 at 1341, For 1 dose 1344 (Given - Provid er: Roshni Miner RN) penicillin v potassium (VEETID) tablet 500 mg (COMPLETED) 500 mg, oral, Once, On Thu12/28/23 at 1341, For 1 dose, Administer on an empty stomach, Indications: Upper Respiratory/HEENT Infection 1344 (Given - Provid er: Roshni Miner RN) documented in this encounter Care Teams Gericare Aide Relationship Specialty Start Date End Date Jessica Navarro NP [address] [place] [id number] PCP - General 08/23/20 Ophelia Ashraf MD [address] [place] [address] [address] [place] [id number] Consulting Physician Endocrinology 04/15/23 documented as of this encounter
--- OUTSIDE RECORDS SUMMARY | 2024-04-14 18:30 | XMS_ITS | Encounter Summary ---
Author Organization [facility] Healthcare Address [address] [place] [address] Care Team Providers Care Shape Brick Molder Name Role Phone Jessica Navarro NP Primary Care Provider [phone] Opheila Ashraf MD Unavailable [phone] Reason for Visit * Reason Comments follow up Encounter Details Date Type Department Care Team (Late st Contact Info) Description 02/04/2024 2:30 PM CDT Office Visit Obstetrics and Gynecology Clinic [address] [facility] 3rd Floor [address] [place] [address] [place] [address] [place] [address] [address] [place] [address] Infertility counseling Social History Tobacco Use Types Packs/Day Years [...] 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 documented as of this encounter Last Filed Vital Signs Vital Sign Reading Time Taken Comments Blood Pressure 121/84 02/04/2024 3:03 PM CDT Pulse 87 02/04/2024 3:03 PM CDT Temperature 36.8 ??C (98.2 ??F) 02/04/2024 3:03 PM CD T Respiratory Rate - - Oxygen Saturation 100% 02/04/2024 3:03 PM CDT Inhaled Oxygen Concentration - - Weight 85 kg (187 lb 6.4 oz) 02/04/2024 3:03 PM CDT Height - - Body Mass Index 33.2 12/28/2023 12:36 PM CDT documented in this encounter Patient Instructions * Patient Instructions* Georgia Leonard MD - 02/04/2024 2:30 PM CDT Plan for letrozole 2.5mg PO daily x5 days Cycle Day (CD) #3-7, timed intercourse daily to every other day CD #10-20, lab draw for progesterone on CD #21 -If no ovulation per progesterone test, will uptitrate letrozole to 5mg (max 7.5mg) -If no menses by CD #40, take test. If negative, take provera 10mg PO daily x10d. 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 who presents for follow up evaluation of infertility. PMH significant for PCOS, T2DM,anxiety, depression. Reports trying letrozole 2.5mg for 2 cycles without successful . Patient unable to come infor C21 progesterone testing. Was not using OPKs during these cycles. Reports that the last 4 months she has been having regular and predictable cycles. Is interested in trying another cycle of letrozole but is open to PIO referral. 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 LMP 01/19/24. Pap History: was normal. No history of abnormal pap. STD History: none Contraception: Attempting conception HRT: pre-menopausal OB History 0 Para 0 Term 0 0 AB 0 Living 0 SAB 0 IAB 0 Ectopic 0 Multiple 0 Live Births 0 Past Medical History: Diagnosis Date Ankle swelling [...] removed THYROID SURGERY Right WISDOM TOOTH EXTRACTION Current Outpatient Medications: albuterol HFA (PROVENTIL HFA,VENTOLIN HFA,PROAIR HFA) 90 mcg/actuation inhaler, Inhale 2 puffs every 4 (four) hours as needed for wheezing, Disp: 1 Inhaler, Rfl: 0 ascorbic acid (VITAMIN C) 500 mg tablet,chewable, Take 1 tablet/chew tab (500 mg total) by mouth 2 (two) times a day, Disp: 60 tablet/chew tab, Rfl: 0 bacitracin 500 unit/gram ointment, Apply topically 2 (two) times a day, Disp: 28 g, Rfl: 0 cariprazine (Vraylar) 3 mg capsule capsule, 1 capsule (3 mg total) daily, Disp: , Rfl: cholecalciferol (Vitamin D3) 2000 unit tablet, Take 1 tablet (2,000 Units total) by mouth daily, Disp: 30 tablet, Rfl: 0 Dexcom G7 Sensor device, 1 Device continuously . Change every 10 days. E11.9, Disp: 10 each, Rfl: [address] (CYMBALTA) 30 mg capsule, Take 1 capsule every day by oral route., Disp: , Rfl: famotidine (PEPCID) 20 mg tablet, Take 1 tablet (20 mg total) by mouth 2 (two) times a day, Disp: 20 tablet, Rfl: 0 fluconazole (DIFLUCAN) 150 mg tablet, Take by mouth once, Disp: , Rfl: gabapentin (NEURONTIN) 300 mg capsule, Take 2 capsules (600 mg total) by mouth 3 (three) times a day, Disp: 180 capsule, Rfl: 11 hydrocortisone 2.5 % ointment, Apply topically 2 (two) times a day, Disp: 30 g, Rfl: 0 hydrOXYzine (ATARAX) 25 mg tablet, Take 1 tablet (25 mg total) by mouth 3 (three) times a day, Disp: 30 tablet, Rfl: 0 ibuprofen (ADVIL,MOTRIN) 800 mg tablet, Take 1 tablet (800 mg total) by mouth every 8 (eight) hoursas needed for pain, Disp: 20 tablet, Rfl: 0 insulin lispro (HumaLOG) 100 unit/mL pen for injection, Use as directed before meals, max 20 units per day, Disp: 15 mL, Rfl: 2 lamoTRIgine (LaMICtal) 200 mg tablet, TAKE 1 TABLET BY MOUTH EVERY DAY FOR 30 DAYS, Disp: , Rfl: LANTUS 100 unit/mL (3 mL) pen for injection, 20 Units daily, Disp: , Rfl: letrozole (FEMARA) 2.5 mg tablet, Take 2 tablets (5 mg total) by mouth daily for 5 days, Disp: 10 tablet, Rfl: 0 M- Plus 27 mg iron- 1 mg tablet, Take 1 tablet by mouth daily, Disp: , Rfl: medroxyPROGESTERone (PROVERA) 10 mg tablet, Take 1 tablet (10 mg total) by mouth daily for 10 days,Disp: 10 tablet, Rfl: 0 metFORMIN (GLUCOPHAGE) 500 mg tablet, Take 2 tablets (1,000 mg total) by mouth 2 (two) times a day,Disp: 360 tablet, Rfl: 1 methocarbamoL (ROBAXIN) 500 mg tablet, Take 1 tablet (500 mg total) by mouth 2 (two) times a day asneeded for muscle spasms, Disp: 20 tablet, Rfl: 0 nicotine 21-14-7 mg/24 hr patch, TD daily, sequential, Place one patch to skin daily: 21 mg/24 hr for 28 days, 14 mg/24 hr for 14days, 7 mg/24 hr for 14 days. E11.9, Disp: 56 patch, Rfl: 1 nicotine, polacrilex, 4 mg mini lozenge, Apply 1 tablet to cheek as needed (for break through nicotine craving.), Disp: 135 each, Rfl: 3 ondansetron (ZOFRAN) 4 mg tablet, Every 4-6 hours as needed, Disp: 30 tablet, Rfl: 1 OneTouch Delica Plus Lancet 33 gauge misc, , Disp: , Rfl: OneTouch Ultra Test strip, Use to check sugars 3 x per day, Disp: 100 strip, Rfl: 5 QUEtiapine (SEROquel) 400 mg tablet, TAKE 1 TABLET BY MOUTH DAILY NEEDED FOR SLEEP, Disp: , Rfl: senna-docusate (PERICOLACE) 8.6-50 mg, 1-2 times daily as needed for constipation, Disp: 60 tablet,Rfl: 1 TRUEplus Pen Needle 32 gauge x needle, Use 3 per day for insulin pen, Disp: 100 each, Rfl: 5 Allergies Allergen Reactions Mena Shortness of breath Family History Problem Relation Age of Onset [...] or 2 Frequency of Binge Drinking: Never Objective: BP 121/84 (Patient Position: Sitting) Pulse 87 Temp 36.8 ??C (98.2 ??F) (Oral) Wt 187 lb 6.4 oz (85 kg) LMP 01/09/2024 SpO2 100% BMI 33.20 kg/m?? Physical Exam General: NAD, mood appropriate Pulmonary: Non-labored Cardiovascular: Regular rate Abdomen: soft, non-tender, non-distended, without rebound or guarding Extremities: Warm and well perfused Assessment/Plan: Lilli Santos is a 28 y.o. with infertility Problem List Infertility counseling Overview Patient has a long history of infertility with no positive test secondary to PCOS. Workuphas included pelvic ultrasound with signs of PCOS, [...] as this would be 3rd letrozole cycle Relevant Orders POCT hCG, urine (Completed) Patient discussed with Dr. Nkechi Everett MD Obstetrics and Gynecology PGY-3 Cosigned by Nelson Arboleda MD at 02/07/2024 4:30 PM CDT Associated attestation - Nelson Arboleda MD - 02/07/2024 4:30 PM CDT I have personally reviewed with Dr. Everett the history, physical examination, laboratory studies and proposed management for Lilli Santos. Together we formulated a clinical diagnosis for each problem and developed a plan for therapy during or immediately after her clinic visit. I agree with the recommended plan of care. documented in this encounter Plan of Treatment [...] Name Priority Date/Time Associated Diagnosis Comments POCT HCG, URINE Routine 02/04/2024 3:00 PM CDT Infertility counseling documented in this encounter Results * POCT hCG, urine (02/04/2024 3:00 PM CDT) HCG, ur, POC Negative Negative Lot Number [id number] QC Backgroud Clear Acceptable QC Control Line Acceptable Urine 02/04/2024 3:00 PM CDT Georgia Tavarez MD POINT OF CARE TE ST ORDERABLES Final Result documented in this encounter Visit Diagnoses Diagnosis Infertility counseling documented in this encounter Care Teams Shape Brick Molder Relationship Specialty Start Date End Date Jessica Navarro NP [address] [place] [address] PCP - General 08/23/20 Ophelia Ashraf MD [address] [facility] [address] [place] [address] Consulting Physician Endocrinology 04/15/23 documented as of this encounter
--- OUTSIDE RECORDS SUMMARY | 2024-04-14 18:30 | XMS_ITS | Referral Summary ---
Author Organization [facility] Address [address] [place] [id number] Care Team Providers Care Scanning Coordinator Name Role Phone Melanie, Jessica Pinto NP Primary Care Provider [phone] Ophelia Ashraf MD Unavailable [phone] Encounters Date Type Department Care Team Description 02/25/2024 7:30 AM CDT Office Visit [facility] at [address] [place] [phone] Malini Cummins NP Type 2 diabetes mellitus without complication, without long-term current use of insulin (CMS/HCC) (HCC) (Primary Dx); Class 1 obesity due to excess calories with serious comorbidity and body mass index (BMI) of 33.0 to 33.9 in adult 02/04/2024 2:30 PM CDT Office Visit Obstetrics and Gynecology Clinic [address] [place] [address] Outpatient Health 3rd Floor [address] [place] [address] Georgia Leonard MD Infertility counseling from Last 3 Months Allergies Active Allergy Reactions Criticality Noted Date [...] cycle Assessment & Plan (05/28/2023 9:49 AM CONCRETE BUCKET UNLOADER): -Ordered AMH and FSH -Pending results, discussed [...] (03/29/2020): Added automatically from request for surgery [id number] ELLI (obstructive sleep apnea) 03/01/2019 Tobacco use [...] complication, without long-term current use of insulin ([facility]) 02/05/2018 Assessment & Plan (02/25/2024 [...] get Assessment & Plan (04/14/2023 11:13 AM CONCRETE BUCKET UNLOADER): Diagnosed in 2019 Started insulin in 2021 [...] regular basis. She will follow up with sweeper operator highways if she gets . Assessment & Plan [...] basis. Assessment & Plan (06/02/2022 2:12 PM CONCRETE BUCKET UNLOADER): Diagnosed in 2019 Started insulin in 2021 [...] basis. 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) ([facility]) POCT GLUCOSE Routine 02/25/2024 7:39 AM CDT Type 2 diabetes mellitus without complication, without long-term current use of insulin ([facility]) ([facility]) POCT HCG, URINE Routine 02/04/2024 3:00 PM CDT Infertility counseling EGFR Routine 07/14/2023 8:54 AM CDT Type 2 diabetes mellitus with hyperglycemia, with long-term current use of insulin ([facility]) ([facility]) LIPID PANEL Routine 07/14/2023 8:54 AM CDT Type 2 diabetes mellitus with hyperglycemia, with long-term current use of insulin ([facility]) ([facility]) ALBUMIN CREATININE RATIO, URINE Routine 07/14/2023 8:54 AM CDT Type 2 diabetes mellitus with hyperglycemia, with long-term current use of insulin ([facility]) ([facility]) DIABETIC EYE EXAM Routine 05/26/2023 [...] BLOOD ORDERABLES Final Resu lt ILDA ARGUELLES ([place]) 1 [facility] [place] [address] * Albumin Creatinine Ratio, Urine (07/14/2023 8:54 AM CDT) Albumin Ur 20.2 mg/L Comment: Interpretive Data No reference range established. Current interpretive data was last revised 2018. Testing performed by: [facility], [address] [place] [address], [place]., [id number] Creatinine Ur 437.5 mg/dL ILDA ARGUELLES (LAMINE) Comment: Interpretive Data No reference range established. Current interpretive data was last revised 2018. Testing performed by: [facility], [address] [place] [address]., [id number] Albumin Creatinine Ratio, Ur 5 1 - 29 mg/g ILDA ARGUELLES (LAMINE) Comment:Testing performed by : [facility], [address] [place] [address]., [id number] Urine 07/14/2023 8:54 AM CDT 07/14/2023 3:58 PM CDT us Malini Cummins NP LAB URINE ORDERABLES Final Resu lt ILDA ARGUELLES (LAMINE) 1 [facility] [place] [address] * (ABNORMAL) Lipid panel (07/14/2023 8:54 AM [...] AM CDT 07/14/2023 11:02 AM CDT Narrative ILDA ARGUELLES (LAMINE) - 07/14/2023 11:35 AM CDT These lab test should be done fasting. This means do not eat or drink for at least 12 hours prior to getting your blood drawn. us Malini Cummins NP LAB BLOOD ORDERABLES Final Resu lt ILDA ARGUELLES (LAMINE) 1 [facility] [place] [address] * Diabetic Eye Exam (05/26/2023) us Historical Provider HEALTH MAINTENANCE Final Result from Last 3 Months or Most Recently Relevant to Health Maintenance Insurance [place] [address] [facility] [place] [address] IDPA IDRI Care Teams Scanning Coordinator Relationship Specialty Start Date End Date Jessica Navarro NP [address] [place] [address] PCP - General 08/23/20 Ophelia Ashraf MD [address] [facility] [address] [place] [address] Consulting Physician Endocrinology 04/15/23
--- OUTSIDE RECORDS SUMMARY | 2024-04-14 18:31 | XMS_ITS | Encounter Summary ---
Author Organization [facility] Healthcare Address [address] [place] [address] Care Team Providers Care Associate Manager Name Role Phone Melanie, Jessica Pinto NP Primary Care Provider [phone] Ophelia Ashraf MD Unavailable [phone] Reason for Visit * Reason Comments Back Pain Encounter Details Date Type Department Care Team (Late st Contact Info) Description 11/04/2023 2:00 PM CDT - 11/04/2023 3:10 PM CDT Emergency [facility] Emergency Department [address] [place] [address] Lumbar strain, initial encounter (Primary Dx); Rash Discharge Disposition: Discharge to home or self [...] making you feel afraid or unsafe? 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[employer]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 N ot on file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 documented as of this encounter Last Filed Vital Signs Vital Sign Reading Time Taken Comments Blood Pressure 108/78 11/04/2023 3:00 PM CDT Pulse 84 11/04/2023 3:00 PM CDT Temperature 36.6 ??C (97.9 ??F) 11/04/2023 10:37 AM C DT Respiratory Rate 18 11/04/2023 3:00 PM CDT Oxygen Saturation 100% 11/04/2023 3:00 PM CDT Inhaled Oxygen Concentration - - Weight 81.6 kg (180 lb) 11/04/2023 10:37 AM CDT Height - - Body Mass Index 30.9 10/05/2023 9:32 AM CDT documented in this encounter Discharge Instructions * Discharge Instructions* Nery Martinez PA - 11/04/2023 2:52 PM CDT Take medication as prescribed. Do not take other NSAIDs such as ibuprofen or naproxen while taking Toradol. B were muscle relaxants can make you drowsy. Follow up with her primary care physician in 3days. Return to the ER for any new or worsening symptoms. Follow-up as recommended is mandatory. You have received emergency care only at your visit today. This is not a substitute for ongoing care, further evaluation and treatment and therefore follow-up as directed is not optional but mandatory You MUST follow up for further evaluation of all incidental abnormal radiographic and laboratory findings, Have your physician obtain records from this visit and address all the incidental abnormal findings. This may include final results of lab testing, cultures, final x-ray reports which may not have been available during the time of the visit. Return immediately for any new symptoms, worsening of symptoms, or persistent symptoms * Attachments The following attachments cannot be sent through Care Everywhere. * Back Sprain/Strain (Nigerien) * Acute Rash (AfterCare(R) Instructions(ER/ED)) ([place]ien) documented in this encounter Medications at Time of Discharge albuterol HFA (PROVENTIL HFA,VENTOLIN HFA,PROAIR HFA) 90 mcg/actuation inhaler Inhale 2 puffs every 4 (four) hours as needed for wheezing 1 Inhaler 05/14/2020 4 ascorbic acid (VITAMIN C) 500 mg tablet,chewable Take 1 tablet/chew tab (500 mg total) by mouth 2 (two) times a day 60 tablet/chew tab 05/13/2023 4 cariprazine (Vraylar) 3 mg capsule capsule 1 capsule (3 mg total) daily 4 cholecalciferol (Vitamin D3) 2000 unit tablet Take 1 tablet (2,000 Units total) by mouth daily 30 tablet 05/13/2023 4 Dexcom G7 Sensor deviceIndication s:Type 2 diabetes mellitus without complication, without long-term current use of insulin ([facility]) ([facility] [...] times a day 30 tablet 11/04/2023 4 insulin lispro (HumaLOG) 100 unit/mL pen [...] Refills Last Filled Start Date End Date ketorolac (TORADOL) 10 mg tablet Take 1 tablet (10 mg total) by mouth every 6 (six) hours as needed for pain 20 tablet 11/04/2023 4 methocarbamoL (ROBAXIN) 500 mg tablet Take 1 tablet (500 mg total) by mouth 2 (two) times a day as needed for muscle spasms 20 tablet 11/04/2023 4 hydrocortisone 2.5 % ointment Apply topically 2 (two) times a day 30 g 11/04/2023 4 hydrOXYzine (ATARAX) 25 mg tablet Take 1 tablet (25 mg total) by mouth 3 (three) times a day 30 tablet 11/04/2023 4 famotidine (PEPCID) 20 mg tablet Take 1 tablet (20 mg total) by mouth 2 (two) times a day 20 tablet 11/04/2023 4 documented in this encounter Discharge Disposition Disposition Code Departure Means Destination Comment s Discharge to home or self care documented in this encounter ED Notes * Nery Martinez PA - 11/04/2023 2:46 PM CDT CHIEF COMPLAINT: Chief Complaint Patient presents with Back Pain HPI 2:53 PM Lilli Santos is a 28 y.o. female presenting to the ED c/o lower back pain and a rash. Patient's symptoms started 1 week ago with a rash on her hips. Since her rash has spread to her back and legs. She is complaining of itching. She has been using [id number] hydrocortisone cream with no relief. She denies any shortness of breath or swelling. She denies any new soaps, lotions, or detergents. Yesterday she developed some pain in the right side of her back and thought she noticed blood in her urine. Today the back pain increased in severity. Pain increases with movement. Denies injury, numbness, tingling, saddle anesthesia, or loss of bladder or bowel control. She denies any abdominal pain, nausea, vomiting, dysuria, or urgency. History provided by patient PCP: Jessica Navarro NP PAST MEDICAL HISTORY Past Medical History: Diagnosis Date Ankle swelling Anxiety Anxiety Asthma Bipolar disorder (HCC) Depression Depression Diabetes mellitus (HCC) Diarrhea Fatigue GERD (gastroesophageal reflux disease) Headache Heartburn Joint swelling Low back pain Muscle pain Poor appetite Rheumatoid arthritis (HCC) Suicidal ideation Thyroid disease PAST SURGICAL HISTORY Past Surgical History: Procedure Laterality Date ANKLE SURGERY Left ARM SURGERY Right 2 separate surgeries to remove extra tissue under the right armpit BREAST SURGERY breast reduction CARPAL TUNNEL RELEASE FL FLUORO GUIDED LUMBAR PUNCTURE Right 03/01/2021 FL FLUORO GUIDED LUMBAR PUNCTURE Right 04/08/2021 REDUCTION MAMMAPLASTY Bilateral 2011 2017-more right axillary tissue removed THYROID SURGERY Right WISDOM TOOTH EXTRACTION FAMILY HISTORY Family History Problem Relation Age of Onset No Known Problems Mother No Known Problems Father Heart disease Other Hypertension Other Cancer Other Arthritis Other Diabetes Other Breast cancer Neg Hx Ovarian cancer Neg Hx Thyroid cancer Neg Hx MEDICATIONS GIVEN IN THE ED Medications methocarbamoL (ROBAXIN) tablet 500 mg (500 mg oral Given 11/04/23 142) hydrOXYzine (VISTARIL) capsule 25 mg (25 mg oral Given 11/04/23 142) famotidine (PEPCID) tablet 20 mg (20 mg oral Given 11/04/23 142) ketorolac (TORADOL) 30 mg/mL injection 30 mg (30 mg intramuscular Given 11/04/23 142) CURRENT HOME MEDICATIONS No current facility-administered medications for this encounter. Current Outpatient Medications: albuterol HFA (PROVENTIL HFA,VENTOLIN HFA,PROAIR HFA) 90 mcg/actuation inhaler, Inhale 2 puffs every 4 (four) hours as needed for wheezing, Disp: 1 Inhaler, Rfl: 0 ascorbic acid (VITAMIN C) 500 mg tablet,chewable, Take 1 tablet/chew tab (500 mg total) by mouth 2 (two) times a day, Disp: 60 tablet/chew tab, Rfl: 0 cariprazine (Vraylar) 3 mg capsule [...] a day, Disp: 30 tablet, Rfl: 0 insulin lispro (HumaLOG) 100 unit/mL pen for injection, Use as directed before meals, max 20 units per day, Disp: 15 mL, Rfl: 2 ketorolac (TORADOL) 10 mg tablet, Take 1 tablet (10 mg total) by mouth every 6 (six) hours as needed for pain, Disp: 20 tablet, Rfl: 0 lamoTRIgine (LaMICtal) 200 mg tablet, TAKE 1 TABLET BY MOUTH EVERY DAY FOR 30 DAYS, Disp: , Rfl: LANTUS 100 unit/mL (3 mL) pen for injection, 20 Units daily, Disp: , Rfl: M-Anel Plus 27 mg iron- 1 mg tablet, Take 1 tablet by mouth daily, Disp: , Rfl: medroxyPROGESTERone (PROVERA) 10 mg tablet, Take 1 tablet (10 mg total) by mouth daily for 10 days,Disp: 10 tablet, Rfl: 0 metFORMIN (GLUCOPHAGE) 500 mg tablet, TAKE 2 TABLETS BY MOUTH TWICE DAILY, Disp: 360 tablet, Rfl: 1 methocarbamoL (ROBAXIN) 500 [...] 1 TRUEplus Pen Needle 32 gauge x 5/32 needle, Use 3 per day for insulin pen, Disp: 100 each, Rfl: 5 ALLERGIES Allergies Allergen Reactions Mena Shortness of breath SOCIAL HISTORY Social History Tobacco Use Smoking status: Every Day Types: E-cigarettes Smokeless tobacco: Never Substance and Sexual Activity Drug use: Not Currently Types: Marijuana Comment: occaionally at night Sexual activity: Defer Alcohol Use: Not At Risk (09/30/2023) AUDIT-C Frequency of Alcohol Consumption: Monthly or less Average Number of Drinks: 1 or 2 Frequency of Binge Drinking: Never PHYSICAL EXAM TRIAGE VITAL SIGNS: ED Triage Vitals [11/04/23 1037] Temp Pulse Resp BP SpO2 36.6 ??C (97.9 ??F) 101 16 146/81 100 % Temp src Heart Rate Source Patient Position BP Location FiO2 (%) Temporal -- -- -- -- Height Height Method Weight Weight Method -- -- 81.6 kg (180 lb) Stated Physical Exam Vitals and nursing note reviewed. Constitutional: General: She is not in acute distress. Appearance: She is well-developed. HENT: Head: Normocephalic and atraumatic. Right Ear: External ear normal. Left Ear: External ear normal. Nose: Nose normal. Mouth/Throat: Mouth: Mucous membranes are moist. Eyes: Conjunctiva/sclera: Conjunctivae normal. Cardiovascular: Rate and Rhythm: Normal rate and regular rhythm. Pulmonary: Effort: Pulmonary effort is normal. No respiratory distress. Breath sounds: Normal breath sounds. Abdominal: Palpations: Abdomen is soft. Tenderness: There is no abdominal tenderness. There is no right CVA tenderness or left CVA tenderness. Musculoskeletal: General: Normal range of motion. Cervical back: Neck supple. Skin: General: Skin is warm and dry. Findings: Rash present. Erythema: erythematous raised rash to the inner thighs and lower back. Neurological: General: No focal deficit present. Mental Status: She is alert. Psychiatric: Mood and Affect: Mood normal. Behavior: Behavior normal. LABS Labs Reviewed URINALYSIS AND REFLEX TO MICROSCOPIC AND CULTURE - Abnormal Result Value Color, ur Yellow Clarity, ur Clear Specific gravity, ur 1.021 pH, urine 5.5 Protein, ur ql Negative Glucose, ur ql 4+ (*) Ketones, ur Negative Bilirubin, ur Negative Blood, ur Negative Urobilinogen, ur <2.0 Nitrite, ur Negative Leukocyte esterase, ur Negative UA reflex comment Value: Reflex conditions for microscopic UA and culture not met. POCT HCG, URINE - Normal HCG, ur, POC Negative Lot Number [id number] QC Backgroud Clear Acceptable QC Control Line Acceptable RADIOLOGY No results found. ED COURSE/MEDICAL DECISION MAKING Differential diagnosis included but not limited to allergic reaction, contact dermatitis, viral exanthem, eczema, pyelonephritis, nephrolithiasis, musculoskeletal back pain, lumbar radiculopathy. Patient's rash is pruritic. She has no concerning signs for anaphylactic reaction. No shortness of breath or swelling. Patient's back pain appears to be musculoskeletal in nature. She has no blood orsigns of infection in her urine. Pain increases with movement. No concerning neurological symptoms.Will treat patient's pain with anti-inflammatories and muscle relaxants. No steroids indicated for patient's rash due to history of intermittently controlled type 2 diabetes. Will give patient a prescription for hydroxyzine, Pepcid, and hydrocortisone cream. I discussed treatment plan, indications for return to the ER, the importance of follow-up with patient. All questions answered. Patient's medical records were reviewed. Procedures FINAL IMPRESSION Lumbar strain, initial encounter Rash DISPOSITION: Home PATIENT INSTRUCTED TO FOLLOW UP Jessica Navarro NP [address] [facility] [address] In 3 days for re-evaluation and further treatment DISCHARGE MEDICATIONS Your medication list START taking these medications Instructions Last Dose Given Next Dose Due famotidine 20 mg tablet Commonly known as: PEPCID Take 1 tablet (20 mg total) by mouth 2 (two) times a day hydrocortisone 2.5 % ointment Apply topically 2 (two) times a day hydrOXYzine 25 mg tablet Commonly known as: ATARAX Take 1 tablet (25 mg total) by mouth 3 (three) times a day ketorolac 10 mg tablet Commonly known as: TORADOL Take 1 tablet (10 mg total) by mouth every 6 (six) hours as needed for pain methocarbamoL 500 mg tablet Commonly known as: ROBAXIN Take 1 tablet (500 mg total) by mouth 2 (two) times a day as needed for muscle spasms CONTINUE taking these medications Instructions Last Dose Given Next Dose Due Dexcom G7 Sensor device Generic drug: blood-glucose sensor 1 Device continuously . Change every 10 days. E11.9 OneTouch Delica Plus Lancet 33 gauge misc Generic drug: lancets TRUEplus Pen Needle 32 gauge x 5/32 needle Generic drug: pen needle, diabetic Use 3 per day for insulin pen ASK your doctor about these medications Instructions Last Dose Given Next Dose Due albuterol HFA 90 mcg/actuation inhaler Commonly known as: PROVENTIL HFA,VENTOLIN HFA,PROAIR HFA Inhale 2 puffs every 4 (four) hours as needed for wheezing ascorbic acid 500 mg tablet,chewable Commonly known as: VITAMIN C Take 1 tablet/chew tab (500 mg total) by mouth 2 (two) times a day cholecalciferol 2000 unit tablet Commonly known as: Vitamin D3 Take 1 tablet (2,000 Units total) by mouth daily DULoxetine DR 30 mg capsule Commonly known as: CYMBALTA Take 1 capsule every day by oral route. fluconazole 150 mg tablet Commonly known as: DIFLUCAN Take by mouth once gabapentin 300 mg capsule Commonly known as: NEURONTIN Take 2 capsules (600 mg total) by mouth 3 (three) times a day insulin lispro 100 unit/mL pen for injection Commonly known as: HumaLOG Use as directed before meals, max 20 units per day lamoTRIgine 200 mg tablet Commonly known as: LaMICtal TAKE 1 TABLET BY MOUTH EVERY DAY FOR 30 DAYS LANTUS 100 unit/mL (3 mL) pen for injection Generic drug: insulin glargine 20 Units daily M- Plus 27 mg iron- 1 mg tablet Generic drug: PNV with [id number]-gscp-HJ Take 1 tablet by mouth daily medroxyPROGESTERone 10 mg tablet Commonly known as: PROVERA Take 1 tablet (10 mg total) by mouth daily for 10 days metFORMIN 500 mg tablet Commonly known as: GLUCOPHAGE TAKE 2 TABLETS BY MOUTH TWICE DAILY nicotine (polacrilex) 4 mg mini lozenge Apply 1 tablet to cheek as needed (for break through nicotine craving.) nicotine 21-14-7 mg/24 hr patch, TD daily, sequential Place one patch to skin daily: 21 mg/24 hr for 28 days, 14 mg/24 hr for 14days, 7 mg/24 hr for 14 days. E11.9 ondansetron 4 mg tablet Commonly known as: ZOFRAN Every 4-6 hours as needed OneTouch Ultra Test strip Generic drug: blood glucose diagnostic Use to check sugars 3 x per day QUEtiapine 400 mg tablet Commonly known as: SEROquel TAKE 1 TABLET BY MOUTH DAILY NEEDED FOR SLEEP senna-docusate 8.6-50 mg Commonly known as: PERICOLACE 1-2 times daily as needed for constipation Vraylar 3 mg capsule capsule Generic drug: cariprazine 1 capsule (3 mg total) daily Where to Get Your Medications These medications were sent to [facility] [address] IN [place], [place] - [address] [place] [id number] famotidine 20 mg tablet hydrocortisone 2.5 % ointment hydrOXYzine 25 mg tablet ketorolac 10 mg tablet methocarbamoL 500 mg tablet This examination was transcribed using the [employer] voice recognition system without human flame degreaser. In an effort to expedite patient care, this report has not been adjusted for typographical, grammatical, and syntax by a trained medical office administrator. Nery Martinez PA 11/04/23 1453 Cosigned by Bryant Tijerina MD at 11/04/2023 2:54 PM CDT * Ester France RN - 11/04/2023 10:35 AM CDT Pt arrives ambulatory with steady gait and no difficulty. Pt states lower back pain worse on R side, that began this morning. Pt states some blood in urine yesterday, states some discolor and foul odor. VSS. Pt states she also has a rash that is on both hips and has gotten worse, pt states have been ongoing at least a week. documented in this encounter Plan of Treatment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 documented as of this encounter Goals Goal Patient Goal Type Associated Problems Recent Progress Patient-Stated? Author CCM Chronic Pain Care Plan Chronic Care Management Worsening( 9:56 AM CDT) No Raiza Drummond, SHERIDAN Note: Problem: Chronic Pain Goals: 1. Minimize further functional decline 2. Maximize quality of life 3. Control pain Strategies: - Activity/exercise program recommendation - Conservative stepwise pain medicine strategy with multi-disciplinary approach - Recommend healthy lifestyle strategies and compensatory methods as needed documented as of this encounter Procedures Procedure Name Priority Date/Time Associated Diagnosis Comments POCT HCG, URINE Routine 11/04/2023 12:48 PM CDT URINALYSIS AND REFLEX TO MICROSCOPIC AND CULTURE STAT 11/04/2023 12:20 PM CDT documented in this encounter Results * POCT hCG, urine (11/04/2023 12:48 PM CDT) HCG, ur, POC Negative Negative Lot Number [id number] QC Backgroud Clear Acceptable QC Control Line Acceptable Urine 11/04/2023 12:4 8 PM CDT Bryant Tijerina MD POINT OF CARE TEST ORDERABLES Final Result * (ABNORMAL) Urinalysis reflex to microscopic and culture Urine (11/04/2023 12:20 PM CDT) Color, ur Yellow Yellow Clarity, ur Clear Clear [facility] (LAMINE) Specific gravity, ur 1.021 1.003 - 1.030 [facility] (LAMINE) pH, urine 5.5 [facility] (LAMINE) Comment: Interpretive Data ? Urine pH is affected by diet, medications, systemic acid-base disturbances, and renal tubular function. ??pH may affect urinary stone formation. ??For example, urine pH below 6.0 may help reduce the tendency for calcium phosphate stones and pH greater than 6.0 may reduce the tendency for uric acid stone formation. Source: [facility] [employer] Current Interpretive Data was last revised on 2017 Protein, ur ql Negative Negative [facility] (LAMINE) Glucose, ur ql 4+(A) Negative [facility] (LAMINE) Ketones, ur Negative Negative [facility] (LAMINE) Bilirubin, ur Negative Negative [facility] (LAMINE) Blood, ur Negative Negative [facility] ([place]AM[place]) Urobilinogen, ur <2.0 <2.0 mg/dL [facility] ([place]AM[place]) Nitrite, ur Negative Negative [facility] (LAMINE) Leukocyte esterase, ur Negative Negative [facility] (LAMINE) UA reflex comment Reflex conditions for microscopic UA and culture not met. [facility] (LAMINE) Urine 11/04/2023 12:2 0 PM CDT 11/04/2023 12:42 PM CDT Bryant Tijerina MD LAB MICROBIOLOGY - GENERAL ORD ERABLES Final Result ILDA BLANE (LAMINE) 1 [facility] Department [place] [address] documented in this encounter Visit Diagnoses Diagnosis Lumbar strain, initial encounter- Primary Rash Rash and other nonspecific skin eruption documented in this encounter Administered Medications Inactive Administered Medications - up to 3 most recent administrations Medication Order MAR Action Action Date Dose Rate Site famotidine (PEPCID) tablet 20 mg 20 mg, oral, Once, On Thu11/04/23 at 1419, For 1 dose Given 11/04/2023 2:25 PM CDT 20 mg hydrOXYzine (VISTARIL) capsule 25 mg 25 mg, oral, Once, On Thu11/04/23 at 1419, For 1 dose Given 11/04/2023 2:25 PM CDT 25 mg ketorolac (TORADOL) 30 mg/mL injection 30 mg 30 mg, intramuscular, Once, On Thu11/04/23 at 1419, For 1 dose Given 11/04/2023 2:25 PM CDT 30 mg Left Deltoid methocarbamoL (ROBAXIN) tablet 500 mg 500 mg, oral, Once, On Thu11/04/23 at 1419, For 1 dose Given 11/04/2023 2:25 PM CDT 500 mg documented in this encounter Discontinued Medications Medication Sig Discontinue Reason Start Date End Da te ibuprofen (ADVIL,MOTRIN) 800 mg tabletIndications:Pain Take 1 tablet (800 mg total) by mouth every 8 (eight) hours as needed for pain Duplicate order 09/09/2021 11/04/2023 tiZANidine (ZANAFLEX) 4 mg tablet TAKE 1 TABLET BY MOUTH EVERY 6-8 HOURS NEEDED FOR MUSCLE SPASMS Duplicate order 08/21/2023 11/04/2023 documented as of this encounter Active and Recently Administered Medications Times are shown in CDT. Scheduled Medication Order 11/02/2023 11/03/2023 11/04/2023 famotidine (PEPCID) tablet 20 mg (COMPLETED) 20 mg, oral, Once, On Thu11/04/23 at 1419, For 1 dose 1424 (Given - Provid er: Val Moreira RN) hydrOXYzine (VISTARIL) capsule 25 mg (COMPLETED) 25 mg, oral, Once, On Thu11/04/23 at 1419, For 1 dose 1424 (Given - Provid er: Val Moreira RN) ketorolac (TORADOL) 30 mg/mL injection 30 mg (COMPLETED) 30 mg, intramuscular, Once, On Thu11/04/23 at 1419, For 1 dose 1424 (Given - Provid er: Val Moreira RN) methocarbamoL (ROBAXIN) tablet 500 mg (COMPLETED) 500 mg, oral, Once, On Thu11/04/23 at 1419, For 1 dose 1425 (Given - Provid er: Val Moreira RN) documented in this encounter Care Teams Associate Manager Relationship Specialty Start Date End Date Jessica Navarro NP [address] [place], [place] [id number] PCP - General 08/23/20 Ophelia Ashraf MD [address] [facility] [address] [place] [id number] Consulting Physician Endocrinology 04/15/23 documented as of this encounter
--- OUTSIDE RECORDS SUMMARY | 2024-04-14 18:31 | XMS_ITS | Encounter Summary ---
Author Organization [facility] Healthcare Address [address] [place] [address] Care Team Providers Care Lan Administrator Name Role Phone Melanie, Jessica Pinto NP Primary Care Provider + [phone] Ophelia Ashraf MD Unavailable [phone] Reason for Referral * Consultation (Routine) - Pending Review Specialty Diagnoses / Procedures Referred By Jonas t Referred To Contact Occupational Therapy Diagnoses S/P carpal tunnel release Leopoldo Quigley PA [address] [place] [address] [address] [place] [address] Phone: tel: fax: Leopoldo Quigley PA [address] [place] [address] [address] [place] [address] Phone: tel: fax: Referral ID Status Reason Start Date Expiration Date Visits Requested Visits Authorized [id number] Pending Review Evaluate and Treat 07/03/2023 08/01/2024 24 9 Question Answer PTRFR OT Evaluate and Treat Therapy options discussed with patient? 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 Details Date Type Department Care Team (Late st Contact Info) Description 07/03/2023 Telephone [facility] Medical Group Orthopedics and Sports Medicine [address] [place] [address] Leopoldo Quigley PA [address] [facility] [address] [place] [address] Social History Tobacco Use Types Packs/Day Years Used Date Smoking Tobacco: Every Day E-cigarettes Smokeless Tobacco: Never Alcohol Use Standard Drinks/Week Comments Never 0 (1 standard drink = 0.6 oz pur e alcohol) AUDIT-C Answer Date Recorded Q1: How often do you have a drink containing alc ohol? Monthly or less 05/13/2023 Q2: How many drinks containi ng alcohol do you have on a typical day when you are drinking? 1 or 2 05/13/2023 Q3: How often do you have si x or more drinks on one occasion? Never 05/13/2023 Hunger Vital Sign Answer Date Recorded Within the past 12 months, y ou worried that your food would run out before you got the money to buy more. Never true 05/26/19 24 Within the past 12 months, t he food you bought just didn't last and you didn't have money to get more. Never true 05/26/2023 Personal Safety Answer Date Recorded Have you ever been in or are you currently in a harmful physical or emotional relationship or is someone making you feel afraid or unsafe? 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[employer]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 N ot on file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 documented as of this encounter Plan of Treatment Scheduled Referrals Name Type Priority Associated Diagnoses Order Schedule Ambulatory referral order to Occupational Therapy - Outpatient Referral Routine S/P carpal tunnel release Expected: 07/17/2023 (Approximate), Expires: 07/02/2024 documented as of this encounter Visit Diagnoses Diagnosis S/P carpal tunnel release- Primary Other postprocedural status documented in this encounter Additional Health Concerns Infection Onset Date Last Indicated Resolved Time COVID: Recovered Comment:Added based on recent COVID infection. 04/20/2023 05/04/2023 07/19/2023 3:05 AM C DT documented as of this encounter Care Teams Lan Administrator Relationship Specialty Start Date End Date Jessica Navarro NP [address] [place] [phone] PCP - General 08/23/20 Ophelia Ashraf MD [address] [facility] [address] [place] [phone] Consulting Physician Endocrinology 04/15/23 documented as of this encounter
--- OUTSIDE RECORDS SUMMARY | 2024-04-14 18:31 | XMS_ITS | Encounter Summary ---
Author Organization [facility] Healthcare Address [address] [place] [address] Care Team Providers Care Sales Promotion Director Name Role Phone Melanie Jessica Pinto NP Primary Care Provider + [phone] Ophelia Ashraf MD Unavailable [phone] Reason for Visit * Reason Comments Post-op Encounter Details Date Type Department Care Team (Late st Contact Info) Description 05/27/2023 8:15 AM IN SERVICE EDUCATOR Office Visit [facility] Medical Group Orthopedics and Sports Medicine [address] [place] [phone] Carrol Gilmore PA [address] [place] [id number] S/P carpal tunnel release (Primary Dx); Orthopedic aftercare; Tenosynovitis, de Quervain Social History Tobacco Use Types Packs/Day Years [...] Industry Job Start Date Job End Date [employer]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 N ot on file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 documented as of this encounter Last Filed Vital Signs Vital Sign Reading Time Taken Comments Blood Pressure 124/85 05/27/2023 8:12 AM IN SERVICE EDUCATOR Pulse 70 05/27/2023 8:12 AM IN SERVICE EDUCATOR Temperature - - Respiratory Rate - - Oxygen Saturation - - Inhaled Oxygen Concentration - - Weight 82.1 kg (181 lb) 05/27/2023 8:12 AM IN SERVICE EDUCATOR Height 162.6 cm (5' 4 ) 05/27/2023 8:12 AM IN SERVICE EDUCATOR Body Mass Index 31.07 05/27/2023 8:12 AM IN SERVICE EDUCATOR documented in this encounter Progress Notes * Carrol iGlmore PA - 05/27/2023 8:15 AM CST Images from the original note were not included. Post-Op Visit Note HPI: Patient is 2 weeks s/p right carpal tunnel release and dequervain's release. Pain is well controlled. Currently taking ibuprofen 800 mg prn for pain. Presurgical symptoms are improving. Vital signs: height is 162.6 cm (5' 4 ) and weight is 82.1 kg (181 lb). Her blood pressure is 124/85 and her pulse is 70. Exam: Well approximated healing post operative incisions. No erythema, draining, or signs of infection present. No effusion or pitting edema. No evidence hematoma Neurovascular status is intact. Full AROM of wrist and digits. [employer] strength: 3+/5 Assessment: Diagnosis Plan 1. S/P carpal tunnel release 2. Orthopedic aftercare 3. Tenosynovitis, de Quervain Plan: Sutures were removed and incision care was reviewed with patient. Discussed continued post operative expectations and recovery. Patient may progress lifting at 4 weeks post op and resume vigorous activities at 6 weeks post op. Patient was advised may may follow up in 4 weeks Discussed she may benefit from occupational therapy however she would like to hold off at this time. We will reassess this at her 4 week follow up. All questions were answered. Patient verbalized full understanding and is agreeable with this treatment plan. There may be grammatical errors in this note due to use of voice recognition software. SERVICE EDUCATOR documented in this encounter Plan of Treatment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 documented as of this encounter Visit Diagnoses Diagnosis S/P carpal tunnel release- Primary Other postprocedural status Orthopedic aftercare Unspecified orthopedic aftercare Tenosynovitis, de Quervain Radial styloid tenosynovitis documented in this encounter Additional Health Concerns Infection Onset Date Last Indicated Resolved Time COVID: Recovered Comment:Added based on recent COVID infection. 04/20/2023 05/04/2023 07/19/2023 3:05 AM C DT documented as of this encounter Care Teams Sales Promotion Director Relationship Specialty Start Date End Date Jessica Navarro NP [address] [place] [phone] PCP - General 08/23/20 Ophelia Ashraf MD [address] [facility] [address] [place] [phone] Consulting Physician Endocrinology 04/15/23 documented as of this encounter
--- OUTSIDE RECORDS SUMMARY | 2024-04-14 18:31 | XMS_ITS | Encounter Summary ---
Author Organization [facility] Healthcare Address [address] [place] [address] Care Team Providers Care Production Planning Manager Name Role Phone Melanie, Jessica Pinto NP Primary Care Provider [phone] Ophelia Ashraf MD Unavailable [phone] Reason for Visit * Auth/Cert (Routine) Specialty Diagnoses / Procedures Referred By Jonas reeves Referred To Contact Diagnoses De Quervain's tenosynovitis Carpal tunnel syndrome on right De Quervain's tenosynovitis [M65.4] Carpal tunnel syndrome on right [G56.01] Procedures [place] NEUROPLASTY &/TRANSPOS MEDIAN NRV CARPAL TUNNE [place] INCISION EXTENSOR TENDON SHEATH WRIST Right carpal tunnel release and dequervain's disease release-hand table Referral ID Status Reason Start Date Expiration Date Visits Re quested Visits Authorized [id number] 1 1 Encounter Details Date Type Department Care Team (Late st Contact Info) Description 05/13/2023 7:45 AM ACID CUTTER - 05/13/2023 8:45 AM ACID CUTTER Surgery [facility] Operating Room [address] [place] [address] Yefri Burgess MD [address] [place] [address] [address] [address] Right carpal tunnel release and dequervain's disease release Surgery Details Date/Time Status Location OR Service Patient Class Case Class Case Type Trauma Case? 05/13/2023 7:45 AM Posted [facility] OR Orthopaedics Outpatient Elective Panel 1 Procedure LRB Anes Op Region Wound Class Comments Right carpal tunnel release and dequervain's disease release Right General Wrist Class I - Cl leroy Surgeon Surgeon Role Service Panel Yefri Burgess MD Primary Orthopaedics 1 documented in this encounter Social History Tobacco Use Types Packs/Day Years [...] more drinks on one occasion? 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 N ot on file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 documented as of this encounter Last Filed Vital Signs Vital Sign Reading Time Taken Comments Blood Pressure 115/69 05/13/2023 8:45 AM ACID CUTTER Pulse 91 05/13/2023 8:45 AM ACID CUTTER Temperature 36 ??C (96.8 ??F) 05/13/2023 8:31 AM ACID CUTTER Respiratory Rate 27 05/13/2023 8:45 AM ACID CUTTER Oxygen Saturation 100% 05/13/2023 8:45 AM ACID CUTTER Inhaled Oxygen Concentration - - Weight 83 kg (182 lb 15.7 oz) 05/13/2023 6:34 AM ACID CUTTER Height 160 cm (5' 3 ) 05/13/2023 6:34 AM ACID CUTTER Body Mass Index 32.41 05/13/2023 6:34 AM ACID CUTTER documented in this encounter Discharge Instructions * Attachments The following attachments cannot be sent through Care Everywhere. * General Anesthesia (Discharge Care) ([place]) * Carpal Tunnel Surgery (Discharge Care) ([place]) * Ascorbic Acid (Vitamin C) (By mouth) ([place]) * Vitamin D (By mouth) ([place]) * Hydrocodone/Acetaminophen (By mouth) ([place]) * Ondansetron (By mouth, Into the mouth) ([place]) * Laxative, Stimulant Combination (By mouth) ([place]) documented in this encounter Medications at Time of Discharge albuterol HFA (PROVENTIL HFA,VENTOLIN HFA,PROAIR HFA) 90 mcg/actuation inhaler Inhale 2 puffs every 4 (four) hours as needed for wheezing 1 Inhaler 05/14/2020 4 ascorbic acid (VITAMIN C) 500 mg tablet,chewable Take 1 tablet/chew tab (500 mg total) by mouth 2 (two) times a day 60 tablet/chew tab 05/13/2023 4 cholecalciferol (Vitamin D3) 2000 unit tablet Take 1 tablet (2,000 Units total) by mouth daily 30 tablet 05/13/[address] (CYMBALTA) 30 mg capsule Take 1 capsule every day by oral route. 4 flash glucose scanning reader (FreeStyle Viviane 2 [employer]) [facility] [place] Use to monitor glucose levels, DX E11.65, Z79.4 1 each 05/23/2022 4 flash glucose sensor (FreeStyle Viviane 2 Sensor) kit Use to monitor glucose levels, Change sensor every 14 days. DX E11.65, Z79.4 2 kit 4 02/13/2023 4 HYDROcodone-acet aminophen (NORCO) 5-325 mg per tabletIndication s:Pain Take 1 tablet by mouth every 6 (six) hours as needed for pain 13 tablet 05/13/2023 4 ibuprofen (ADVIL,MOTRIN) 800 mg tabletIndication s:Pain Take 1 tablet (800 mg total) by mouth every 8 (eight) hours as needed for pain 21 tablet 09/09/2021 4 insulin lispro (HumaLOG) 100 unit/mL pen for injection Use as directed before meals, max 20 units per day 15 mL 2 05/12/2022 4 lamoTRIgine (LaMICtal) 25 mg tablet Take 1 tablet (25 mg total) by mouth 2 (two) times a day 4 LANTUS 100 unit/mL (3 mL) pen for injection 20 Units daily 03/27/2022 4 M-Anel Plus 27 mg iron- 1 mg tablet Take 1 tablet by mouth daily 03/26/2023 4 metFORMIN (GLUCOPHAGE) 500 mg tablet TAKE 2 TABLETS BY MOUTH TWICE DAILY 360 tablet 1 10/24/2022 4 ondansetron (ZOFRAN) 4 mg tablet Every 4-6 hours as needed 30 tablet 1 05/13/2023 4 OneTouch Delica Plus Lancet 33 gauge misc 03/27/2022 4 SabrixTouch Ultra Test strip Use to check sugars 3 x per day 100 strip 5 05/12/2022 4 QUEtiapine (SEROquel) 100 mg tablet Take 1 tablet (100 mg total) by mouth nightly 4 senna-docusate (PERICOLACE) 8.6-50 mg 1-2 times daily as needed for constipation 60 tablet 1 05/13/2023 4 TRUEplus Pen Needle 32 gauge x needle Use 3 per day for insulin pen 100 each 5 05/12/2022 4 documented as of this encounter Ordered Prescriptions Prescription Sig Dispense Quantity Refills Last Filled Start Date End Date HYDROcodone-aceta minophen (NORCO) 5-325 mg per tabletIndications :Pain Take 1 tablet by mouth every 6 (six) hours as needed for pain 13 tablet 05/13/2023 4 cholecalciferol (Vitamin D3) 2000 unit tablet Take 1 tablet (2,000 Units total) by mouth daily 30 tablet 05/13/2023 4 ascorbic acid (VITAMIN C) 500 mg tablet,chewable Take 1 tablet/chew tab (500 mg total) by mouth 2 (two) times a day 60 tablet/chew tab 05/13/2023 4 ondansetron (ZOFRAN) 4 mg tablet Every 4-6 hours as needed 30 tablet 1 05/13/2023 4 senna-docusate (PERICOLACE) 8.6-50 mg 1-2 times daily as needed for constipation 60 tablet 1 05/13/2023 4 documented in this encounter Discharge Disposition Disposition Code Departure Means Destination Comment s Discharge to home or self care documented in this encounter H&P Notes * Yefri Burgess MD - 05/13/2023 7:42 AM CST I have reviewed the H&P, examined the patient, and endorse the findings as written. Plan of Care : Based on the above findings, I consider Lilli Santos to be an acceptable risk for: Procedure(s): Right carpal tunnel release and dequervain's disease release-hand table CUTTER Source Note - Berna Pryor PA - 05/12/2023 8:12 AM ACID CUTTER Images from the original note were not included. NEW PATIENT VISIT Subjective CHIEF COMPLAINT She had concerns including Pre-op Visit of the Right Hand. HISTORY OF PRESENT ILLNESS Right wrist pain for the past 3 years gotten worse the past year problem started movement pain is sharp dull achy in severe. No move makes it better everything makes it worse her pain is continuous she is had physical therapy anti- inflammatories braces she is here for surgical consultation. Pain Assessment Pain Assessment: 0-10 Pain Score: 10 - Worst possible pain Pain Orientation: Right Pain Descriptors: Aching, Discomfort, Dull, Sharp, Numbness, Tingling, Radiating Pain Frequency: Constant/continuous Pain Onset: Gradual Clinical Progression: Gradually worsening Aggravating Factors: Bending, Stretching, Straightening, Exercise Result of Injury: No Work-Related Injury: No Patient's Stated Pain Goal: No pain Pain Interventions: Exercise, Medication (See MAR), Home medication, Cold pack, Heat applied, Physical Therapy, Compression, Elevated, Cold applied, Rest, Other (Comment) (Brace) PAST MEDCIAL HISTORY She has a past medical history of Anxiety, Asthma, Depression, Diabetes mellitus (HCC), GERD (gastroesophageal reflux disease), Rheumatoid arthritis (HCC), and Thyroid disease. PAST SURGICAL HISTORY She has a past surgical history that includes Breast surgery; Thyroid surgery; Ankle surgery; FL Fluoro Guided Lumbar Puncture (Right, 03/01/2021); and FL Fluoro Guided Lumbar Puncture (Right, 04/08/2021). MEDICATIONS She has a current medication list which includes the following prescription(s): aripiprazole, escitalopram, ibuprofen, insulin lispro, metformin, tizanidine, albuterol hfa, aripiprazole, benzonatate,freestyle viviane 2 reader, freestyle viviane 2 sensor, fluconazole, gabapentin, lantus, nicotine, nitrofurantoin monohydrate, ondansetron odt, onetouch delica plus lancet, onetouch ultra test, trueplus pen needle, valacyclovir, and westab plus. ALLERGIES She is allergic to chiu. SOCIAL HISTORY She reports that she has been smoking cigarettes. She has been smoking an average of 1 pack per day. She has never used smokeless tobacco. She reports that she does not use drugs. No alcohol history on file. FAMILY HISTORY Her family history includes Arthritis in an other family member; Cancer in an other family member; Diabetes in an other family member; Heart disease in an other family member; Hypertension in an other family member; No Known Problems in her father and mother. REVIEW OF SYSTEMS Review of Systems Constitutional: Positive for unexpected weight change. Negative for activity change, appetite change, chills and fever. HENT: Negative for congestion, dental problem, ear pain, hearing loss, nosebleeds, tinnitus and voice change. Eyes: Positive for visual disturbance. Negative for pain. Respiratory: Positive for apnea. Negative for cough, chest tightness and shortness of breath. Cardiovascular: Negative for chest pain, palpitations and leg swelling. Gastrointestinal: Negative for blood in stool, constipation, diarrhea, nausea and vomiting. Endocrine: Negative for cold intolerance and heat intolerance. Genitourinary: Negative for difficulty urinating, hematuria and urgency. Skin: Negative for color change, rash and wound. Allergic/Immunologic: Negative for environmental allergies. Neurological: Negative for dizziness, syncope, numbness and headaches. Hematological: Negative for adenopathy. Does not bruise/bleed easily. Psychiatric/Behavioral: Negative for confusion. The patient is not nervous/anxious and is not hyperactive. All other systems reviewed and are negative. Objective PHYSICAL EXAM BP 119/80 Pulse 77 Ht 162.6 cm (5' 4 ) Wt 93.5 kg (206 lb 1.6 oz) BMI 35.38 kg/m?? Right hand/wrist Inspection Edema: present Palpation Tenderness: present. The tenderness is located in the first compartment. Range of motion The patient has normal range of motion of the right wrist. The patient has pain with range of motion of the right wrist. Th patient has normal range of motion of the fingers on the right hand. Stability The patient has normal stability of the right hand and wrist. Strength The patient has 5/5 strength throughout with exceptions as noted below. Thumb extension: 4/5 Thumb abduction:4/5 Wood Repatcher: 4/5 Neurovascular The patient has normal vascular on the right side of their body. The patient has normal sensation with exceptions as noted below. Median: paresthesias Test Tinel's sign: positive Tomas's test: positive Left hand/wrist The patient has normal inspection, palpation, range of motion, strength, and stability of the left hand and wrist. Strength The patient has 5/5 strength throughout with exceptions as noted below. REVIEW OF X-RAYS/STUDIES/LABS Wrist XR FINDINGS: Mild ulnar negative variance. No acute fracture seen. Joint spaces appear normal. No gross soft tissue abnormality. EMG/NCS Electromyogram Procedure Note Date of Procedure: 06/18/2022 [...] the flexor retinaculum. Clinical correlation is recommended. POCT hemoglobin A1c Order: [id number] Status: Final result Visible to patient: Yes (seen) Next appt: 05/26/2023 at 02:45 PM in Obstetrics and Gynecology (David Reyes MD) Dx: Type 2 diabetes mellitus with hypergl... 0 Result Notes 1 Topic Component Ref Range & Units 04/14/23 0952 Hemoglobin A1C, POC % 6.8 Specimen Collected: 04/14/23 09:52 Last Resulted: 04/14/23 10:21 Assessment Assessment/Plan Lilli was seen today for pre-op visit. Diagnoses and all orders for this visit: Tenosynovitis, de Quervain Carpal tunnel syndrome of right wrist Procedures PLAN Risks and benefits of the surgery were discussed with the patient. These include but are not limited to bleeding infection damage to surrounding structures including ... DVT, PE, stroke, heart attack, and . Patient understands these risks and agreed to proceed with the surgery as described above. All questions and concerns were addressed with the patient prior to surgical consent being established in the office today. The patient will follow up for surgery. Right de Quervain release carpal tunnel release under general. Patient has been medically optimized by their PCP and manager shipping and may proceed with acceptable risk. MJ Pérez Cosigned by Yefri Burgess MD at 05/13/2023 7:42 AM ACID CUTTER CUTTER CUTTER * Berna Pryor PA - 05/12/2023 8:12 AM CST Images from the original note were not included. NEW PATIENT VISIT Subjective CHIEF COMPLAINT She had concerns including Pre-op Visit of the Right Hand. HISTORY OF PRESENT ILLNESS Right wrist pain for the past 3 years gotten worse the past year problem started movement pain is sharp dull achy in severe. No move makes it better everything makes it worse her pain is continuous she is had physical therapy anti- inflammatories braces she is here for surgical consultation. Pain Assessment Pain Assessment: 0-10 Pain Score: 10 - Worst possible pain Pain Orientation: Right Pain Descriptors: Aching, Discomfort, Dull, Sharp, Numbness, Tingling, Radiating Pain Frequency: Constant/continuous Pain Onset: Gradual Clinical Progression: Gradually worsening Aggravating Factors: Bending, Stretching, Straightening, Exercise Result of Injury: No Work-Related Injury: No Patient's Stated Pain Goal: No pain Pain Interventions: Exercise, Medication (See MAR), Home medication, Cold pack, Heat applied, Physical Therapy, Compression, Elevated, Cold applied, Rest, Other (Comment) (Brace) PAST MEDCIAL HISTORY She has a past medical history of Anxiety, Asthma, Depression, Diabetes mellitus (HCC), GERD (gastroesophageal reflux disease), Rheumatoid arthritis (HCC), and Thyroid disease. PAST SURGICAL HISTORY She has a past surgical history that includes Breast surgery; Thyroid surgery; Ankle surgery; [place] Fluoro Guided Lumbar Puncture (Right, 03/01/2021); and FL Fluoro Guided Lumbar Puncture (Right, 04/08/2021). MEDICATIONS She has a current medication list which includes the following prescription(s): aripiprazole, escitalopram, ibuprofen, insulin lispro, metformin, tizanidine, albuterol hfa, aripiprazole, benzonatate,freestyle viviane 2 reader, freestyle viviane 2 sensor, fluconazole, gabapentin, lantus, nicotine, nitrofurantoin monohydrate, ondansetron odt, onetouch delica plus lancet, onetouch ultra test, trueplus pen needle, valacyclovir, and westab plus. ALLERGIES She is allergic to chiu. SOCIAL HISTORY She reports that she has been smoking cigarettes. She has been smoking an average of 1 pack per day. She has never used smokeless tobacco. She reports that she does not use drugs. No alcohol history on file. FAMILY HISTORY Her family history includes Arthritis in an other family member; Cancer in an other family member; Diabetes in an other family member; Heart disease in an other family member; Hypertension in an other family member; No Known Problems in her father and mother. REVIEW OF SYSTEMS Review of Systems Constitutional: Positive for unexpected weight change. Negative for activity change, appetite change, chills and fever. HENT: Negative for congestion, dental problem, ear pain, hearing loss, nosebleeds, tinnitus and voice change. Eyes: Positive for visual disturbance. Negative for pain. Respiratory: Positive for apnea. Negative for cough, chest tightness and shortness of breath. Cardiovascular: Negative for chest pain, palpitations and leg swelling. Gastrointestinal: Negative for blood in stool, constipation, diarrhea, nausea and vomiting. Endocrine: Negative for cold intolerance and heat intolerance. Genitourinary: Negative for difficulty urinating, hematuria and urgency. Skin: Negative for color change, rash and wound. Allergic/Immunologic: Negative for environmental allergies. Neurological: Negative for dizziness, syncope, numbness and headaches. Hematological: Negative for adenopathy. Does not bruise/bleed easily. Psychiatric/Behavioral: Negative for confusion. The patient is not nervous/anxious and is not hyperactive. All other systems reviewed and are negative. Objective PHYSICAL EXAM BP 119/80 Pulse 77 Ht 162.6 cm (5' 4 ) Wt 93.5 kg (206 lb 1.6 oz) BMI 35.38 kg/m?? Right hand/wrist Inspection Edema: present Palpation Tenderness: present. The tenderness is located in the first compartment. Range of motion The patient has normal range of motion of the right wrist. The patient has pain with range of motion of the right wrist. Th patient has normal range of motion of the fingers on the right hand. Stability The patient has normal stability of the right hand and wrist. Strength The patient has 5/5 strength throughout with exceptions as noted below. Thumb extension: 4/5 Thumb abduction:4/5 Wood Repatcher: 4/5 Neurovascular The patient has normal vascular on the right side of their body. The patient has normal sensation with exceptions as noted below. Median: paresthesias Test Tinel's sign: positive Tomas's test: positive Left hand/wrist The patient has normal inspection, palpation, range of motion, strength, and stability of the left hand and wrist. Strength The patient has 5/5 strength throughout with exceptions as noted below. REVIEW OF X-RAYS/STUDIES/LABS Wrist XR FINDINGS: Mild ulnar negative variance. No acute fracture seen. Joint spaces appear normal. No gross soft tissue abnormality. EMG/NCS Electromyogram Procedure Note Date of Procedure: 06/18/2022 [...] the flexor retinaculum. Clinical correlation is recommended. POCT hemoglobin A1c Order: [id number] Status: Final result Visible to patient: Yes (seen) Next appt: 05/26/2023 at 02:45 PM in Obstetrics and Gynecology (David Reyes MD) Dx: Type 2 diabetes mellitus with hypergl... 0 Result Notes 1 Topic Component Ref Range & Units 04/14/23 0952 Hemoglobin A1C, POC % 6.8 Specimen Collected: 04/14/23 09:52 Last Resulted: 04/14/23 10:21 Assessment Assessment/Plan Lilli was seen today for pre-op visit. Diagnoses and all orders for this visit: Tenosynovitis, de Quervain Carpal tunnel syndrome of right wrist Procedures PLAN Risks and benefits of the surgery were discussed with the patient. These include but are not limited to bleeding infection damage to surrounding structures including ... DVT, PE, stroke, heart attack, and . Patient understands these risks and agreed to proceed with the surgery as described above. All questions and concerns were addressed with the patient prior to surgical consent being established in the office today. The patient will follow up for surgery. Right de Quervain release carpal tunnel release under general. Patient has been medically optimized by their PCP and manager shipping and may proceed with acceptable risk. MJ Pérez Cosigned by Yefri Burgess MD at 05/13/2023 7:42 AM ACID CUTTER CUTTER CUTTER documented in this encounter Miscellaneous Notes * Perioperative Nursing Note - Millie Cortez RN - 05/13/2023 8:50 AM ACID CUTTER Called pt's corinnaance Anthony, in the waiting room and updated him on pt's status. CUTTER * Perioperative Nursing Note - Becky Null RN - 05/13/2023 8:07 AM ACID CUTTER Eschmark used as tourniquet and applied at 0807 Released at 0824 CUTTER * Op Note - Yefri Burgess MD - 05/13/2023 8:07 AM CST Images from the original note were not included. Operative Report SURGEON: Yefri Burgess MD Mint Machine Operator: Becky Null RN Scrub: Maine Krue[address] ST FLOAT: Kathleen Murry RN NURSE PRACTIONER PRIVATE: Van Holden NP SURGICAL TEAM: Surgeon(s) and Role: * Yefri Burgess MD - Primary DATE OF SURGERY : 05/13/2023 PREOPERATIVE DIAGNOSIS: See preoperative H and P POSTOPERATIVE DIAGNOSIS: Post-op Diagnosis * De Quervain's tenosynovitis [M65.4] * Carpal tunnel syndrome on right [G56.01] PROCEDURE: Right carpal tunnel release and dequervain's disease release (R) ANESTHESIA: General IMPLANTS: Nothing was implanted during the procedure Estimated Blood Loss: No blood loss documented. Operation in detail: Operative indication Patient failed conservative treatment of hisright carpal tunnel syndrome and de Quervain's tenosynovitis and elected to have the above-named procedure informed consent was obtained from the patient patient understood the risk and benefits of procedure included but not limited to stroke bleeding infection damage to nerves arteries veins need for additional procedures Operation in detail patient taken the OR general anesthetic was performedright upper extremity withshaving preoperatively clean with alcohol and prepped and draped in standard technique using ChloraPrep standard time-out was performed operative extremity was identified which was also marked preoperatively a standard carpal tunnel incision was marked the right upper extremity was exsanguinated the Esmarch was tied off on her forearm. Transverse incision was made at the distal aspect of the 1st dorsal compartment careful dissection down to the 1st dorsal compartment was performed superficial cutaneous nerves were retracted and the 1st dorsal flores was released the tendons were inspected intact . Attention was then turned to the carpal tunnel. skin incision was made and careful dissection down to the transverse carpal ligament was performed under direct visualization the transverse carpal ligament was released proximally and distally including the deep fascia of the forearm the wound was irrigated the proximal aspect of the incision was injected with lidocaine with epi and the wound was closed with 4-0 nylon dressings were placed and the patient was extubated and taken to recovery room in stable condition needle counts sponge counts and instrument counts were correct at the end the case. Postoperative plan patient will follow standard carpal tunnel release protocol patient will receivea postoperative block due to her sensitivity and pain preoperatively Complications: None Condition on Discharge from the operating room was stable Yefri Burgess MD Date: 05/13/2023 Time: 8:23 AM Shipyard Laborer completed by using [employer] speaking software, therefore, transcriptionvariances may occur. \ CUTTER * Pre-Procedure Instructions - Mimi Cuello RN - 05/04/2023 2:36 PM ACID CUTTER We are pleased that you and your doctor have chosen [facility] for your surgery. We hope that the following information will help make your visit a pleasant one. Surgery Date: 05/13/2023 Before your surgery: Notify your doctor of ANY change in your health such as a cold, sore throat, fever, any infection or a change in the problem for which you are having your surgery. Follow any instructions given to you by your doctor or surgeon. Check with your doctor if you need to STOP taking: Aspirin (ordered by your doctor) Plavix Coumadin One week before surgery STOP taking: All herbal supplements Aspirin (not ordered by your doctor) Aleve, Advil, Motrin, Ibuprofen, or other similar medications (Tylenol is okay). 24 hours before your surgery: No smoking or alcoholic drinks. Night before your surgery: Do not eat or drink anything after midnight. Take only half of your normal PM Insulin dose. Follow surgeon's instructions for anti-bacterial shower night before and morning of surgery. Day of surgery: Do not swallow any water when you brush your teeth. Do not take your AM insulin dose or any diabetic medicines ONLY take these pills with a tiny sip of water. Pre-Surgery Instructions: Medication Instructions albuterol HFA (PROVENTIL HFA,VENTOLIN HFA,PROAIR HFA) 90 mcg/actuation inhaler Take morning of surgery DULoxetine DR (CYMBALTA) 30 mg capsule Take morning of surgery ibuprofen (ADVIL,MOTRIN) 800 mg tablet Stop taking 1 week prior to surgery lamoTRIgine (LaMICtal) 25 mg tablet Take morning of surgery LANTUS 100 unit/mL (3 mL) pen for injection Stop taking 1 days prior to surgery M- Plus 27 mg iron- 1 mg tablet Stop taking 1 week prior to surgery metFORMIN (GLUCOPHAGE) 500 mg tablet Stop taking 1 days prior to surgery QUEtiapine (SEROquel) 100 mg tablet Take morning of surgery flash glucose scanning reader (FreeStyle Viviane 2 [employer]) [facility] [place] glucose sensor (FreeStyle Viviane 2 Sensor) kit insulin lispro (HumaLOG) 100 unit/mL pen for injection Stop taking 1 days prior to surgery OneTouch Delica Plus Lancet 33 gauge [facility] OneTouch Ultra Test strip TRUEplus Pen Needle 32 gauge x 5/32 needle Use no make-up, nail vietnamese, lotions, oils or powders on your skin. Wear comfortable clothes that will not be tight in the area of your surgery. Leave all valuables and jewelry (including all body piercing jewelry) at home. Please bring your a photo ID and insurance cards with you. Check in at the Registration Desk downstairs in the Ambulatory Surgery Department. You will come inthe main entrance and go down the olsen until you see the [employer]/coffee shop, there will be elevators to the right, take those down to LL1. You will exist the elevators to the right and go down thehall and you will pass Medical Imaging on the left and we will be the next department on the right,you will see the sign above that says Ambulatory Surgery Department check-in. After your Outpatient Surgery: You must have a responsible adult to drive you home, you will not be allowed to drive or take a cabhome. We recommend you have someone stay with you for 24 hours after your surgery. What to bring if you are spending the night with us: Bring toiletry items such as: robe, slippers, toothbrush, toothpaste, brush or comb. Bring contact lens, hearing aids, glass cases and denture container if you use any of these items. The hospital will provide you with a gown. Questions or concerns: If you have any questions or concerns regarding your procedure, contact your surgeon as soon as possible. If you have questions regarding your Pre-Admission Testing, please call us. We can be reached at the number posted at the top of the page. CUTTER documented in this encounter Plan of Treatment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 documented as of this encounter Procedures Procedure Name Priority Date/Time Associated Diagnosis Comments POCT GLUCOSE DEVICE Routine 05/13/2023 8 :39 AM ACID CUTTER RELEASE CARPAL TUNNEL 05/13/2023 7:47 AM ACID CUTTER De Quervain's tenosynovitis Carpal tunnel syndrome on right POCT GLUCOSE DEVICE Routine 05/13/2023 6 :40 AM ACID CUTTER POCT HCG, URINE Routine 05/13/2023 6:28 AM ACID CUTTER documented in this encounter Results * (ABNORMAL) POCT glucose (05/13/2023 8:39 AM ACID CUTTER) Glucose, POC 129(H) 71 - 98 mg/dL ILDA ARGUELLES (LAMINE) Blood 05/13/2023 8:39 AM ACID CUTTER 05/13/2023 8:39 AM ACID CUTTER us Yefri Burgess MD LAB POCT ORDERABLES - DEVICE Final Result ILDA ARGUELLES (GLEN ARM) 1 [facility] [place] [address] * (ABNORMAL) POCT glucose (05/13/2023 6:40 AM ACID CUTTER) Glucose, POC 112(H) 71 - 98 mg/dL ILDA ARGUELLES (LAMINE) Blood 05/13/2023 6:40 AM ACID CUTTER 05/13/2023 6:40 AM ACID CUTTER us Yefri Burgess MD LAB POCT ORDERABLES - DEVICE Final Result ILDA ARGUELLES (LAMINE) [address] 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 Carpal tunnel syndrome on right Carpal tunnel syndrome Carpal tunnel syndrome on right Carpal tunnel syndrome De Quervain's tenosynovitis Radial styloid tenosynovitis Carpal tunnel syndrome on right Carpal tunnel syndrome documented in this encounter Admitting Diagnoses Diagnosis De Quervain's tenosynovitis Radial styloid tenosynovitis Carpal tunnel syndrome on right Carpal tunnel syndrome documented in this encounter Administered Medications Inactive Administered Medications - up to 3 most recent administrations Medication Order MAR Action Action Date Dose Rate Site acetaminophen (TYLENOL) tablet 1,000 mg 1,000 mg, oral, Once, On Thu05/13/23 at 0700, For 1 dose, Pre-Op, Indications: Pre-Emptive AnalgesiaIndications:Pre-Em ptive Analgesia Given 05/13/2023 6:48 AM ACID CUTTER 1,000 mg HYDROcodone-acetaminophen (NORCO) 5-325 mg per tablet 1 tablet 1 tablet, oral, Every 4 hours PRN, 1st line for pain, Starting on Thu05/13/23 at 0908, Pre-Op, Indications: PainIndications:Pain Given 05/13/2023 9:35 AM ACID CUTTER 1 tablet lidocaine-EPINEPHrine (XYLOCAINE with EPI) 1 %-1:200,000 preservative free injection As needed, Starting on Thu05/13/23 at 0815, Intra-Op, Indications: Administration of Local AnesthesiaIndications:Admin istration of Local Anesthesia Given 05/13/2023 8:15 AM ACID CUTTER 10 mL Surgical Site sodium chloride 0.9% infusion 30 mL/hr, intravenous, Continuous, Starting on Thu05/13/23 at 0700, Pre-Op New Bag 05/13/2023 8:10 AM ACID CUTTER Rate/Dose Verify 05/13/2023 7:47 AM ACID CUTTER 30 mL/h r New Bag 05/13/2023 6:48 AM ACID CUTTER 30 mL/hr 30 mL/hr sodium chloride 0.9% irrigation As needed, Starting on Thu05/13/23 at 0809, Intra-Op Given 05/13/2023 8:09 AM ACID CUTTER 500 mL Surgical Site documented in this encounter Discontinued Medications Medication Sig Discontinue Reason Start Date End Da te ondansetron ODT (ZOFRAN-ODT) 4 mg disintegrating tablet Take 1-2 tablets (4-8 mg total) by mouth every 8 (eight) hours as needed for nausea or vomiting Therapy completed 12/28/2022 05/04/2023 metoclopramide (REGLAN) 10 mg tablet Take 1 tablet (10 mg total) by mouth every 8 (eight) hours as needed (Nausea/vomiting) Therapy completed 12/28/2022 05/04/2023 tiZANidine (ZANAFLEX) 4 mg tablet Take 1 tablet (4 mg total) by mouth every 6 (six) hours as needed Therapy completed 01/21/2021 05/04/2023 documented as of this encounter Active and Recently Administered Medications Times are shown in ACID CUTTER. Scheduled Medication Order 05/11/2023 05/12/2023 05/13/2023 acetaminophen (TYLENOL) tablet 1,000 mg (COMPLETED) 1,000 mg, oral, Once, On Thu05/13/23 at 0700, For 1 dose, Pre-Op, Indications: Pre-Emptive Analgesia 0648 (Given - Provid er: Trae Garcia RN) ceFAZolin (ANCEF) 2,000 mg/20 mL in sterile water (premix) 2,000 mg (COMPLETED) 2,000 mg, intravenous, at 400 mL/hr, Administer over 3 Minutes, Once, On Thu05/13/23 at 0700, For 1 dose, Pre-Op, Administer within 60 minutes of incision., Indications: Prophylaxis, Surgical 0800 (Given - Provid er: Rivas Lou CRNA) Continuous Medication Order 05/11/2023 05/12/2023 05/13/2023 sodium chloride 0.9% infusion 30 mL/hr, intravenous, Continuous, Starting on Thu05/13/23 at 0700, Pre-Op 0648 (New Bag - Prov ider: Trae Garcia RN)0747 (Rate/Dose Verify - Provider: Rivas Lou CRNA)0809 (Paused - Provider: Rivas Lou CRNA - Comment: Switch to gravity)0810 (New Bag - Provider: Rivas Lou CRNA)1518 (Due: Stopped) PRN Medication Order 05/11/2023 05/12/2023 05/13/2023 HYDROcodone-acetaminophen (NORCO) 5-325 mg per tablet 1 tablet 1 tablet, oral, Every 4 hours PRN, 1st line for pain, Starting on Thu05/13/23 at 0908, Pre-Op, Indications: Pain 0935 (Given - Provid er: Trae Garcia RN) lidocaine-EPINEPHrine (XYLOCAINE with EPI) 1 %-1:200,000 preservative free injection (CANCELED) As needed, Starting on Thu05/13/23 at 0815, Intra-Op, Indications: Administration of Local Anesthesia 0815 (Given - Provid er: Yefri Burgess MD) sodium chloride 0.9% irrigation (CANCELED) As needed, Starting on Thu05/13/23 at 0809, Intra-Op 0809 (Given - Provid er: Yefri Burgess MD - Comment: on sterile field) documented in this encounter Orders Medications Ordered That Edgar ht Not Have Been Administered Count Last Ordered Date First Ordered Date ceFAZolin (ANCEF) 2,000 mg/2 0 mL in sterile water (premix) 2,000 mg 1 05/13/2023 HYDROmorphone (PF) (DILAUDID ) injection 0.2 mg 1 05/13/2023 HYDROmorphone (PF) (DILAUDID ) injection 0.4 mg 1 05/13/2023 naloxone (NARCAN) 0.4 mg/mL injection 0.04-0.4 mg 1 05/13/2023 Diet Count Last Ordered Date First Orde red Date ADULT DISCHARGE DIET 1 05/13/2023 Nursing Count Last Ordered Date First Orde red Date DISCHARGE ACTIVITY 4 05/13/2023 DISCHARGE CALL PROVIDER 6 05/13/2023 DISCHARGE DRESSING 1 05/13/2023 Discharge Count Last Ordered Date First Orde red Date DISCHARGE PATIENT 1 05/13/2023 documented in this encounter Additional Health Concerns Infection Onset Date Last Indicated Resolved Time COVID: Recovered Comment:Added based on recent COVID infection. 04/20/2023 05/04/2023 07/19/2023 3:05 AM C DT documented as of this encounter Care Teams Production Planning Manager Relationship Specialty Start Date End Date Jessica Navarro NP [address] [place] [id number] PCP - General 08/23/20 Ophelia Ashraf MD [address] [place] [address] DR [address] [place] [id number] Consulting Physician Endocrinology 04/15/23 documented as of this encounter
--- OUTSIDE RECORDS SUMMARY | 2024-04-14 18:31 | XMS_ITS | Encounter Summary ---
Author Organization [facility] Healthcare Address [address] [place] [address] Care Team Providers Care Correctional Program Specialist Name Role Phone Navarro, Jessica Pinto NP Primary Care Provider [phone] Ophelia Ashraf MD Unavailable [phone] Reason for Referral * Diagnostic Imaging (Routine) - Closed Specialty Diagnoses / Procedures Referred By Contac t Referred To Contact Diagnoses Pain of upper arm, unspecified laterality Unspecified lump in axillary tail of the right breast Procedures US Breast Right Limited US Breast Right Limited Kostas Hale MD [address] [place] [id number] Phone: tel: fax: [address] [phone] Referral ID Status Reason Start Date Expiration Date Visits Re quested Visits Authorized [id number] Closed 08/21/2023 09/19/2024 1 1 Reason for Visit * Diagnostic Imaging (Routine) - Closed Specialty Diagnoses / Procedures Referred By Jonas reeves Referred To Contact Diagnoses Pain of upper arm, unspecified laterality Unspecified lump in axillary tail of the right breast Procedures US Breast Right Limited US Breast Right Limited Kostas Hale MD [address] [place] [address] Phone: tel: fax: [address] [phone] Referral ID Status Reason Start Date Expiration Date Visits Re quested Visits Authorized [id number] Closed 08/21/2023 09/19/2024 1 1 Encounter Details Date Type Department Care Team (Latest Contact Info) Description 10/05/2023 9:25 AM CDT - 10/05/2023 11:59 PM CDT Hospital Encounter [facility] [address] [place] [address] Pain of upper arm, unspecified laterality; Unspecified lump in axillary tail of the right breast Discharge Disposition: Discharge to home or self [...] 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 Change every 10 days. E11.9 10 each 3 07/14/[address] (CYMBALTA) 30 mg capsule Take 1 capsule every day by oral route. 4 fluconazole (DIFLUCAN) 150 mg tablet Take by mouth once 08/10/2023 4 gabapentin (NEURONTIN) 300 mg capsule Take 2 capsules (600 mg total) by mouth 3 (three) times a day 180 capsule 11 09/30/2023 4 ibuprofen (ADVIL,MOTRIN) 800 mg tabletIndication s:Pain [...] TWICE DAILY 360 tablet 1 10/24/2022 4 nicotine 21-14-7 mg/24 hr patch, TD [...] for constipation 60 tablet 1 05/13/2023 4 tiZANidine (ZANAFLEX) 4 mg tablet TAKE 1 TABLET BY MOUTH EVERY 6-8 HOURS NEEDED FOR MUSCLE SPASMS 08/21/2023 4 TRUEplus Pen Needle 32 gauge x needle Use 3 per day for insulin pen 100 each 5 05/12/2022 4 documented as of this encounter Discharge Disposition Disposition Code Departure Means Destination Discharge to home or self care documented in this encounter Plan of Treatment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 documented as of this encounter Goals Goal Patient Goal Type Associated Problems Recent Progress Patient-Stated? Author CCM Chronic Pain Care Plan Chronic Care Management Worsening( 9:56 AM CDT) Raiza Shaikh, RN Note: Problem: Chronic Pain Goals: 1. Minimize further functional decline 2. Maximize quality of life 3. Control pain Strategies: - Activity/exercise program recommendation - Conservative stepwise pain medicine strategy with multi-disciplinary approach - Recommend healthy lifestyle strategies and compensatory methods as needed documented as of this encounter Procedures Procedure Name Priority Date/Time Associated Diagnosis Comments US BREAST RIGHT LIMITED Schedule Routine, Read Routine (OP Routine) 10/05/2023 10:52 AM CDT Pain of upper arm, unspecified laterality Unspecified lump in axillary tail of the right breast documented in this encounter Results * US Breast Right Limited (10/05/2023 10:52 AM CDT) Anatomical Region Laterality Modality Breast Right Ultrasound 10/05/2023 11:0 6 AM CDT Impressions 10/05/2023 11:06 AM CDT 1. ??No suspicious finding on either mammogram or ultrasound at the palpable area of concern in the right breast axillary tail. ??Clinical follow-up is recommended. ??Any further evaluation should be based on clinical grounds. 2. ??No suspicious findings in either mammogram or ultrasound to account for the intermittent right nipple tenderness. ??Clinical follow-up is recommended. ??Any further evaluation should be based on clinical grounds. 3. ??No mammographic evidence of malignancy in either breast. Recommend continued self breast examination. ??Annual screening mammography beginning at age 40 is recommended, unless earlier screening is warranted based on the patient's family history or other risk factors. BI-RADS: 1 - Negative. The patient was notified of these findings and recommendations at the time of the examination. Electronically signed by: Sagar Key M.D. Narrative 10/05/2023 11:06 AM CDT EXAMINATION: DIAGNOSTIC MAMMOGRAM BILATERAL W KELSI, US BREAST RIGHT LIMITED ORDERING HEALTHCARE PROVIDER: KOSTAS HALE HISTORY: 28-year-old female presents for evaluation of intermittent right nipple tenderness (with no discharge) for the past 2 weeks and for a palpable golf ball sized lump in the upper outer right breast for one month (which is tender to palpation). ??Surgical history of bilateral reduction mammoplasty in 2012 with additional tissue removed from the outer right breast/axilla in 2018. COMPARISON: ??None available, baseline mammogram TECHNIQUE: CC, XCCL, and MLO views of the bilateral breasts were obtained with digital technique using breast tomosynthesis with C view. Computer aided detection was utilized. ??Limited grayscale ultrasound of the right breast was performed. FINDINGS: BREAST DENSITY: There are scattered fibroglandular elements in the bilateral breasts. MAMMOGRAM FINDINGS: ??There are postoperative changes consistent with reduction mammoplasty in both breasts. ??A triangular radiopaque marker has been placed on the right breast axillary tail, denoting the palpable area of concern. ??There is no mammographically evident abnormality underlying this marker. ??No suspicious masses, suspicious calcifications, or other suspicious findings are seen in either breast. ULTRASOUND FINDINGS: ??Targeted ultrasound of the palpable area of concern in the right breast axillary tail demonstrates only normal-appearing tissue with no lymphadenopathy, solid or cystic mass, or other suspicious finding. Targeted ultrasound of the subareolar right breast/nipple at the area of intermittent tenderness demonstrates only normal tissue with no suspicious finding. Kostas Hale MD IMG MAMMO PROCEDURES Final Re sult documented in this encounter Visit Diagnoses Diagnosis Pain of upper arm, unspecified laterality Unspecified lump in axillary tail of the right breast documented in this encounter Care Teams Correctional Program Specialist Relationship Specialty Start Date End Date Jessica Navarro NP [address] [place] [id number] PCP - General 08/23/20 Ophelia Ashraf MD [address] [facility] [address] [place] [id number] Consulting Physician Endocrinology 04/15/23 documented as of this encounter
--- OUTSIDE RECORDS SUMMARY | 2024-04-14 18:31 | XMS_ITS | Encounter Summary ---
Author Organization [facility] Healthcare Address [address] [place] [address] Care Team Providers Care Applications Support Analyst Name Role Phone Melanie, Jessica Pinto NP Primary Care Provider + [phone] Ophelia Ashraf MD Unavailable [phone] Reason for Visit * Auth/Cert (Routine) Specialty Diagnoses / Procedures Referred By Jonas reeves Referred To Contact Diagnoses De Quervain's tenosynovitis Carpal tunnel syndrome on right De Quervain's tenosynovitis [M65.4] Carpal tunnel syndrome on right [G56.01] Procedures OH NEUROPLASTY &/TRANSPOS MEDIAN NRV CARPAL TUNNE OH INCISION EXTENSOR TENDON SHEATH WRIST Right carpal tunnel release and dequervain's disease release-hand table Referral ID Status Reason Start Date Expiration Date Visits Re quested Visits Authorized [id number] 1 1 Encounter Details Date Type Department Care Team (Latest Contact Info) Description 05/13/2023 6:12 AM BOOKS BINDER - 05/13/2023 11:18 AM BOOKS BINDER Hospital Encounter [facility] Operating Room [address] [place] [address] Yefri Burgess MD [address] [place] [address] DR SOLOMON B [address] [address] De Quervain's tenosynovitis (Primary Dx); Carpal tunnel syndrome on right Discharge Disposition: Discharge to home or self [...] 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[employer]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 N ot on file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 documented as of this encounter Last Filed Vital Signs Vital Sign Reading Time Taken Comments Blood Pressure 123/81 05/13/2023 11:00 AM BOOKS BINDER Pulse 68 05/13/2023 11:00 AM BOOKS BINDER Temperature 36.2 ??C (97.2 ??F) 05/13/2023 11:[address] Respiratory Rate 18 05/13/2023 11:00 AM BOOKS BINDER Oxygen Saturation 97% 05/13/2023 11:00 AM BOOKS BINDER Inhaled Oxygen Concentration - - Weight 83 kg (182 lb 15.7 oz) 05/13/2023 6:34 AM BOOKS BINDER Height 160 cm (5' 3 ) 05/13/2023 6:34 AM BOOKS BINDER Body Mass Index 32.41 05/13/2023 6:34 AM BOOKS BINDER documented in this encounter Discharge Instructions * Attachments The following attachments cannot be sent through Care Everywhere. * General Anesthesia (Discharge Care) (Barbadian) * Carpal Tunnel Surgery (Discharge Care) (Barbadian) * Ascorbic Acid (Vitamin C) (By mouth) (Barbadian) * Vitamin D (By mouth) (Barbadian) * Hydrocodone/Acetaminophen (By mouth) (Barbadian) * Ondansetron (By mouth, Into the mouth) (Barbadian) * Laxative, Stimulant Combination (By mouth) (Barbadian) documented in this encounter Medications at Time [...] flash glucose scanning reader (FreeStyle Viviane 2 [place]) [facility] Use to monitor glucose levels, DX E11.65, [...] tunnel release and dequervain's disease release-hand table S BINDER Source Note - Berna Pryor PA - 05/12/2023 8:12 AM BOOKS BINDER Images from the original note were not [...] noted below. Thumb extension: 4/5 Thumb abduction:4/5 Director Of Business Operations: 4/5 Neurovascular The patient has normal vascular [...] correlation is recommended. POCT hemoglobin A1c Order: [id number] Status: Final result Visible to patient: Yes [...] been medically optimized by their PCP and civil engineering draftsperson and may proceed with acceptable risk. MJ Pérez Cosigned by Yefri Burgess MD at 05/13/2023 7:42 AM BOOKS BINDER S BINDER S BINDER * Berna Pryor PA - 05/12/2023 8:12 [...] noted below. Thumb extension: 4/5 Thumb abduction:4/5 Director Of Business Operations: 4/5 Neurovascular The patient has normal vascular [...] correlation is recommended. POCT hemoglobin A1c Order: [id number] Status: Final result Visible to patient: Yes [...] been medically optimized by their PCP and civil engineering draftsperson and may proceed with acceptable risk. MJ Pérez Cosigned by Yefri Burgess MD at 05/13/2023 7:42 AM BOOKS BINDER S BINDER S BINDER documented in this encounter Miscellaneous Notes * Perioperative Nursing Note - Millie Cortez RN - 05/13/2023 8:50 AM BOOKS BINDER Called pt's Anthony velasquez, in the waiting room and updated him on pt's status. S BINDER * Perioperative Nursing Note - Becky Null RN - 05/13/2023 8:07 AM BOOKS BINDER Eschmark used as tourniquet and applied at 0807 Released at 0824 S BINDER * Op Note - Yefri Burgess MD - 05/13/2023 8:07 AM CST Images from the original note were not included. Operative Report SURGEON: Yefri Burgess MD Activities Aide: Becky Null RN Scrub: Maine Krueger ST [...] Burgess MD Date: 05/13/2023 Time: 8:23 AM Parts Counter Representative completed by using M*Modal Fluency Direct speaking software, therefore, transcriptionvariances may occur. \ S BINDER * Pre-Procedure Instructions - Mimi Cuello RN - 05/04/2023 2:36 PM BOOKS BINDER We are pleased that you and your doctor have chosen [facility] for your surgery. We hope that the [...] flash glucose scanning reader (FreeStyle Viviane 2 [place]) [facility] flash glucose sensor (FreeStyle Viviane 2 Sensor) kit insulin lispro (HumaLOG) 100 unit/mL pen for injection Stop taking 1 days prior to surgery OneTouch Delica Plus Lancet 33 gauge [facility] OneTouch Ultra Test strip TRUEplus Pen Needle 32 gauge x 5/32 needle Use no make-up, nail amharic, lotions, oils or powders on your skin. [...] down the olsen until you see the [employer]/coffee shop, there will be elevators to the [...] posted at the top of the page. S BINDER documented in this encounter Plan of Treatment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 documented as of this encounter Procedures Procedure Name Priority Date/Time Associated Diagnosis Comments POCT GLUCOSE DEVICE Routine 05/13/2023 8 :39 AM BOOKS BINDER RELEASE CARPAL TUNNEL 05/13/2023 7:47 AM BOOKS BINDER De Quervain's tenosynovitis Carpal tunnel syndrome on right POCT GLUCOSE DEVICE Routine 05/13/2023 6 :40 AM BOOKS BINDER POCT HCG, URINE Routine 05/13/2023 6:28 AM BOOKS BINDER documented in this encounter Results * (ABNORMAL) POCT glucose (05/13/2023 8:39 AM BOOKS BINDER) Glucose, POC 129(H) 71 - 98 mg/dL ILDA ARGUELLES (LAMINE) Blood 05/13/2023 8:39 AM BOOKS BINDER 05/13/2023 8:39 AM BOOKS BINDER Yefri Burgess MD LAB POCT ORDERABLES - DEVICE Final Result ILDA BLANE (LAMINE) 1 [facility] [place] [address] * (ABNORMAL) POCT glucose (05/13/2023 6:40 AM BOOKS BINDER) Glucose, POC 112(H) 71 - 98 mg/dL ILDA ARGUELLES (LAMINE) Blood 05/13/2023 6:40 AM BOOKS BINDER 05/13/2023 6:40 AM BOOKS BINDER Yefri Burgess MD LAB POCT ORDERABLES - DEVICE Final Result ILDA ARGUELLES [place]) 1 [facility] [place] [address] * POCT hCG, urine (05/13/2023 6:28 AM BOOKS BINDER) HCG, ur, POC Negative Negative Lot Number [id number] QC Backgroud Clear Acceptable QC Control Line Acceptable Urine 05/13/2023 6:28 AM BOOKS BINDER us Juana Burns MD POINT OF CARE [...] 0700, For 1 dose, Pre-Op, Indications: Pre-Emptive AnalgesiaIndications:Pre-Emptive Analgesia Given 05/13/2023 6:48 AM BOOKS BINDER 1,000 mg HYDROcodone-acetaminophen (NORCO) 5-325 mg per tablet 1 tablet 1 tablet, oral, Every 4 hours PRN, 1st line for pain, Starting on Thu05/13/23 at 0908, Pre-Op, Indications: PainIndications:Pain Given 05/13/2023 9:35 AM BOOKS BINDER 1 tablet sodium chloride 0.9% infusion 30 mL/hr, intravenous, Continuous, Starting on Thu05/13/23 at 0700, Pre-Op New Bag 05/13/2023 8:10 AM BOOKS BINDER Rate/Dose Verify 05/13/2023 7:47 AM BOOKS BINDER 30 mL/h r New Bag 05/13/2023 6:48 AM BOOKS BINDER 30 mL/hr 30 mL/hr documented in this encounter Discontinued Medications Medication [...] Recently Administered Medications Times are shown in BOOKS BINDER. Scheduled Medication Order 05/11/2023 05/12/2023 05/13/2023 acetaminophen [...] (DILAUDID ) injection 0.4 mg 1 05/13/2023 lidocaine-EPINEPHrine (XYLOC YAW with EPI) 1 %-1:200,000 preservative free injection 1 05/13/2023 naloxone (NARCAN) 0.4 mg/mL injection 0.04-0.4 mg 1 05/13/2023 sodium chloride 0.9% irrigation 1 Diet Count Last Ordered Date First Orde [...] documented as of this encounter Care Teams Applications Support Analyst Relationship Specialty Start Date End Date Jessica Navarro NP [address] [place] [address] PCP - General 08/23/20 Ophelia Ashraf MD [address] [facility] [address] [place] [id number] Consulting Physician Endocrinology 04/15/23 documented as of this encounter
--- OUTSIDE RECORDS SUMMARY | 2024-04-14 18:31 | XMS_ITS | Encounter Summary ---
Author Organization [facility] Healthcare Address [address] [place] [address] Care Team Providers Care Big Machine Consultant Name Role Phone Navarro, Jessica Pinto NP Primary Care Provider [phone] Ophelia Ashraf MD Unavailable [phone] Reason for Referral * Diagnostic Imaging (Routine) - Pending Review Specialty Diagnoses / Procedures Referred By Contac t Referred To Contact Diagnoses Lumbar radiculopathy Procedures Imaging Lumbar/Caudal Epidural Steroid INJ ([address]) Arnold Sharp MD PhD Phone: tel:[phone] fax: [address] [phone] Referral ID Status Reason Start Date Expiration Date V isits Requested Visits Authorized [id number] Pending Review 08/19/2023 09/17/2024 1 1 * MRI/CAT/PET Scan (Routine) - Pending Review Specialty Diagnoses / Procedures Referred By Contac t Referred To Contact Radiology Diagnoses Lumbar radiculopathy Procedures MRI Lumbar Spine WO Contrast Arnold Sharp MD PhD Phone: tel:[phone] fax: [address] [phone] Referral ID Status Reason Start Date Expiration Date V isits Requested Visits Authorized [id number] Pending Review 08/19/2023 09/17/2024 1 1 * Consultation (Routine) - Closed Specialty Diagnoses / Procedures Referred By Contac t Referred To Contact Pain Management Diagnoses Sciatica, left side Jessica Navarro NP [address] [place] [address] Phone: tel: fax: [address] [phone] Referral ID Status Reason Start Date Expiration Date V isits Requested Visits Authorized [id number] Closed Specialty Services Required 07/28/2023 08/26/2024 1 1 Question Answer Please select the performing region: [facility] [152] # of visits: 1 Reason for Visit * Reason Comments Back Pain * Consultation (Routine) - Closed Specialty Diagnoses / Procedures Referred By Contac t Referred To Contact Pain Management Diagnoses Sciatica, left side Jessica Navarro NP [address] [place] [address] Phone: tel: fax: [address] [phone] Referral ID Status Reason Start Date Expiration Date V isits Requested Visits Authorized [id number] Closed Specialty Services Required 07/28/2023 08/26/2024 1 1 Encounter Details Date Type Department Care Team (Latest Contact Info) Description 08/19/2023 8:44 AM CDT - 08/19/2023 11:59 PM CDT Hospital Encounter [facility] [address] [place] [address] Advanced Medicine [address] [place] [address] Arnold Sharp MD PhD [address] [place] [address] Lumbar radiculopathy - Right (Primary Dx); Sciatica, left side Discharge Disposition: Discharge to home or self [...] drink containing alc ohol? Monthly or less 08/19/2023 Q2: How many drinks containi ng alcohol do you have on a typical day when you are drinking? 1 or 2 08/19/2023 Q3: How often do you have si x or more drinks on one occasion? 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[employer] [facility]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 N ot on file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 documented as of this encounter Last Filed Vital Signs Vital Sign Reading Time Taken Comments Blood Pressure 120/68 08/19/2023 9:02 AM CDT Pulse 81 08/19/2023 9:02 AM CDT Temperature 36.4 ??C (97.5 ??F) 08/19/2023 9:02 AM CD T Respiratory Rate 16 08/19/2023 9:02 AM CDT Oxygen Saturation 99% 08/19/2023 9:02 AM CDT Room air Inhaled Oxygen Concentration - - Weight 80.3 kg (177 lb) 08/19/2023 9:02 AM CDT Height 157.5 cm (5' 2 ) 08/19/2023 9:02 AM CDT Body Mass Index 32.37 08/19/2023 9:02 AM CDT documented in this encounter Discharge Instructions * Patient Instructions* Ronna Nur, RN - 08/19/2023 9:30 AM CDT PAIN MANAGEMENT CENTER ([facility]) DISCHARGE INSTRUCTIONS MEDICATIONS: [x] Continue your current home medications Start: Gabapentin 300 mg nightly to start. Titrate up to 300 mg, three times a day as tolerated. [x] Notify your pharmacy for refill(s) 7 days before you are out of your medication. PROCEDURE at today's visit: Initial visit with Dr. Sharp DIET: [x] Resume normal diet ACTIVITY: [x] Resume normal activity REFERRALS: Behavior Medicine [] Pain Psychologist, [facility] Please call to schedule appointment [phone] or [phone] Diagnostic Test(s): L-spine MRI May get Radiographs performed in Radiation/X-Ray 6th floor, [address]. [x] Please call to schedule MRI or CT scan at [phone] FOLLOW UP APPOINTMENTS: [x] Procedure at your next visit : Lumbar epidural steroid injection after MRI INSTRUCTIONS before your next procedure: [x] See [facility] Pre-Procedure Information Sheet [x] Barrel Washer Machine needed for next procedure [x] Pre Procedure instructions will be sent through [employer] or by phone two working days prior to procedure. *Need help with [employer]? Call [phone]. Patient provided information and repeated back with understanding. If you need to reach us: For any questions about your procedure, please call the Pain Management Center [phone] (M-F) (8am-4pm) If you need urgent attention after 5 pm and weekends: Call the [facility] Inspector Water Pollution Control at [phone] and ask for the Pain Service doctor quantitative consultant. LUMBAR EPIDURAL STEROID INJECTION PAIN MANAGEMENT CENTER PATIENT EDUCATION PRE-PROCEDURE INFORMATION SHEET What is an epidural steroid injection? An epidural steroid injection is a procedure used to treat a variety of conditions that can cause pain in the back and the legs. Nerves that travel from your spine to your back and legs can become swollen or irritated and can cause pain in these areas. Anesthetic (numbing) and steroid medication can be placed into these areas to help decrease inflammation (swelling) of the nerves, helping to relieve your pain. What should I do before my procedure? Let your doctor or nurse know if you are on any blood thinners (such as Aggrenox, Coumadin, Effient, Eliquis, Lovenox, Plavix, Pletal, Pradaxa,Ticlid or Xarelto). You may eat, drink and take your medications as usual. Bring someone with you to drive you home. An X-ray machine will be used during the procedure. Let your doctor or nurse know if there is any chance you may be . What should I expect during my procedure? Your procedure will be done on an x-ray table while you are awake. A durability technician will be taking x-rays. A nurse will monitor your blood pressure, breathing and heart rate. Your doctor will use a local anesthetic to numb the area. What should I expect after my procedure? A nurse will monitor you for a brief time. You may feel sore at the injection site. You may feel lightheaded or dizzy, or have numbness or weakness in your legs. These symptoms generally wear off in 6-8 hours and are almost always gone by the next morning. If you have an questions prior to your appointment, please call the Pain Management Center at [phone] and ask to speak with a nurse. documented in this encounter Medications at Time of Discharge albuterol HFA (PROVENTIL HFA,VENTOLIN HFA,PROAIR HFA) 90 mcg/actuation inhaler Inhale 2 puffs every 4 (four) hours as needed for wheezing 1 Inhaler 1 02/25/20 24 amoxicillin-clavula lia (AUGMENTIN) 875-125 mg per tablet TAKE 1 TABLET BY MOUTH EVERY 12 HOURS FOR 3 DAYS 4 09/30/19 24 ascorbic acid (VITAMIN C) 500 mg tablet,chewable Take 1 tablet/chew tab (500 mg total) by mouth 2 (two) times a day 60 tablet/chew tab 4 02/25/20 24 cholecalciferol (Vitamin D3) 2000 unit tablet Take 1 tablet (2,000 Units total) by mouth daily 30 tablet 4 02/25/20 Dexcom G7 Sensor deviceIndications:T ype 2 diabetes mellitus without complication, without long-term current use of insulin (CMS/HCC) (HCC) 1 Device continuously . Change every 10 days. E11.9 10 each 3 4 02/25/[address] (CYMBALTA) 30 mg capsule Take 1 capsule every day by oral route. 02/25/20 fluconazole (DIFLUCAN) 150 mg tablet Take by mouth once 4 02/25/20 gabapentin (NEURONTIN) 300 mg capsule Take 1 capsule (300 mg total) by mouth 3 (three) times a day 90 capsule 11 4 09/30/19 24 HYDROcodone-acetami nophen (NORCO) 5-325 mg per tabletIndications:P ain Take 1 tablet by mouth every 6 (six) hours as needed for pain 13 tablet 4 09/30/19 24 ibuprofen (ADVIL,MOTRIN) 800 mg tabletIndications:P ain Take 1 tablet (800 mg total) by mouth every 8 (eight) hours as needed for pain 21 tablet 2 11/04/19 24 insulin lispro (HumaLOG) 100 unit/mL pen for injection Use as directed before meals, max 20 units per day 15 mL 2 3 02/25/20 24 lamoTRIgine (LaMICtal) 200 mg tablet TAKE 1 TABLET BY MOUTH EVERY DAY FOR 30 DAYS 4 02/25/20 24 LANTUS 100 unit/mL (3 mL) pen for injection 20 Units daily 2 02/25/20 24 M- Plus 27 mg iron- 1 mg tablet Take 1 tablet by mouth daily 3 02/25/20 24 medroxyPROGESTERone (PROVERA) 10 mg tabletIndications:S econdary oligomenorrhea Take 1 tablet (10 mg total) by mouth daily for 10 days 10 tablet 4 08/25/19 metFORMIN (GLUCOPHAGE) 500 mg tablet TAKE 2 TABLETS BY MOUTH TWICE DAILY 360 tablet 1 3 02/01/20 nicotine 21-14-7 mg/24 hr patch, TD daily, sequentialIndicatio ns:Smoking Cessation Place one patch to skin daily: 21 mg/24 hr for 28 days, 14 mg/24 hr for 14days, 7 mg/24 hr for 14 days. E11.9 56 patch 1 4 02/25/20 nicotine, polacrilex, 4 mg mini lozengeIndications: Smoking Cessation Apply 1 tablet to cheek as needed (for break through nicotine craving.) 135 each 3 4 02/25/20 ondansetron (ZOFRAN) 4 mg tablet Every 4-6 hours as needed 30 tablet 1 4 02/25/20 OneTouch Delica Plus Lancet 33 gauge misc 2 02/25/20 OneTouch Ultra Test strip Use to check sugars 3 x per day 100 strip 5 3 02/25/20 QUEtiapine (SEROquel) 200 mg tablet 4 09/30/19 QUEtiapine (SEROquel) 400 mg tablet TAKE 1 TABLET BY MOUTH DAILY NEEDED FOR SLEEP 4 02/25/20 senna-docusate (PERICOLACE) 8.6-50 mg 1-2 times daily as needed for constipation 60 tablet 1 4 02/25/20 TRUEplus Pen Needle 32 gauge x needle Use 3 per day for insulin pen 100 each 5 3 02/25/20 24 documented as of this encounter Ordered Prescriptions Prescription Sig Dispense Quantity Refills Last Filled Start Date End Date gabapentin (NEURONTIN) 300 mg capsule Take 1 capsule (300 mg total) by mouth 3 (three) times a day 90 capsule 11 08/19/2023 4 documented in this encounter Discharge Disposition Disposition Code Departure Means Destination Discharge to home or self care documented in this encounter Progress Notes * Arnold Sharp MD PhD - 08/19/2023 9:30 AM CDT Patient Name: Lilli Santos : 1995 Today's Date: 08/19/2023 PCP: Jessica Navarro NP Referring: Jessica Navarro NP Chief Complaint Patient presents with Back Pain HPI Lilli Santos is a 28 y.o. year old female referred by Jessica Navarro NP for consultation regarding evaluation and treatment recommendation for management of Her right sided Sciatica pain. Patient has history of T2D, PCOS, Tobacco use disorder on nicotine patch, MDD/LOIS/bipolar/PTSD, right carpal tunnel and dequervain'stensynovitis s/p release, ELLI, obesity, RA. She presents with low back pain. Her low back pain began 15 years ago. Pain happened after no inciting event. The pain is described as throbbing, shooting, stabbing, aching, heavy, and tender. It radiates to right leg . Provocative factors include walking, lifting, standing, bending, sitting, turning, lying, cough, sneezing, and straining. Alleviating factors include heat, ice, rest, and medications. Her pain at its best-worse level is 5-10/10, respectively. Pain right now is 8/10 on the numeric pain scale. Pain is worse during midday. Pain is better during no specific time of the day. Her pain greatly interferes with ADL's. Patient has chronic depression with ongoing SI but no intent current Patient was previously admitted to hospital for SI with intent 10/2023. Patient has done physical therapy: Yes. It was last done: 2022. It was helpful: No. Patient is continuing with HEP Patient has tried various pharmacotherapies with some degree of success: gabapentinnoids Y Comments Anticonvulsants Y Comments Opioids Y Comments Gabapentin (Neurontin) [x] Not helpful Carbamazepine (Tegretol) [] Tramdol (Ultram) [] Pregabalin (Lyrica) [] Oxcarbazepine (Trileptal) [] Tapentadol (Nucynta) [] TCA: Topiramate (Topamax) [] Buprenorphine (Belbuca, Bultran) [] Nortriptyline (Pamelor) [] Lamotrigine (Lamictal) [] Oxycodone/APAP (Percocet) [] Amitriptyline (Elavil) [] Levetiracetam (Keppra) [] Hydrocodone/APAP (Marsland) [] Desipramine (Norpramin) [] Valproate (Depakote) [] Codeine/APAP (Tylenol#3, Tylenol#4) [] Imipramine (Tofranil) [] Mexiletine (Mexitil) [] Methadone [] SNRI: Muscle Relaxants: Fentanyl Patch (Duragesic) [] Duloxetine (Cymbalta) [x] Takes 30 daily Cyclobenzaprine (Flexeril) [] NSAIDS: Venlafaxine (Effexor) [] Methocarbamol (Robaxin) [] Ibuprofen (Advil, Motrin) [x] Milnacipran (Savella) [] Tizanidine (Zanaflex) [x] Not helpful Naproxen (Aleve) [] Others: Baclofen (Lioresal) [] Meloxicam (Mobic) [] Acetaminophen (Tylenol) [] Metaxalone (Skelaxin) [] Diclofenac (Voltaren) [] Low dose naltrexone [] Carisoprodol (Soma) [] Indomethacin (Tivorbex) [] Topical patch and cream (Aspercreme, Lidoderm, Capzasin) [] Diazepam (Valium) [] Nabumetone (Relafen) Nabumetone (Relafen) Etodolac (Lodine) [] Patient has various interventional therapies with some degree of success: Epidural injection around 2021 - 100% relief for 3-4 month She has history of following psychiatric disorder: anxiety, depression, Bi-polar disorder, and PTSD She has history of smoking: Yes. She is receiving disability compensation now: No. She is involved in a law suit because of pain or injury: No. She is in contact with a lang path therapist because of pain or injury: No. Significant past medical history:T2D, PCOS, Tobacco use disorder on nicotine patch, MDD/LOIS/bipolar/PTSD, right carpal tunnel and dequervain'stensynovitis s/p release, ELLI, obesity, RA. 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 HISTORY: Lumbar radiculopathy. TECHNIQUE: Multiplanar multi-weighted MRI of the lumbar spine was performed without intravenous contrast using the standard lumbar spine protocol. COMPARISON: None available. FINDINGS: The alignment of the lumbar spine is normal. Vertebral bodies demonstrate normal signal intensity on all sequences. There are no compression fractures. The conus medullaris terminates at the level of L1-L2. The distal spinal cord signal intensity is normal. There is mild degenerative disc disease with mild desiccation. There is annular fissure in the posterior L5-S1 disc. Limited views of the abdomen and pelvis show no soft tissue abnormality. The aorta is normal. L1-L2: The disc is normal in configuration. There is no facet arthropathy. There is no neuroforaminal stenosis. There is no spinal canal stenosis. L2-L3: Right paracentral/foraminal broad-based disc protrusion causing right lateral recess stenosis at this level. There is no facet arthropathy. There is no neuroforaminal stenosis. There is mild spinal canal stenosis L3-L4: Mild disc bulge. There is mild bilateral facet arthropathy. There is no neuroforaminal stenosis. There is no spinal canal stenosis L4-L5: Small disc bulge. There is mild bilateral, facet arthropathy, right worse than left. There is no neuroforaminal stenosis. There is no spinal canal stenosis L5-S1: Moderate disc bulge superimposed with small posterior central/right paracentral protrusion mildly compressing right descending nerve root at this level. There is mild bilateral facet arthropathy. There is no neuroforaminal stenosis. There is no spinal canal stenosis IMPRESSION: 1. Mild multilevel degenerative disc disease more pronounced at L2-L3 and L5-S1 levels 2. L5-S1 disc protrusion mildly compressing right S1 nerve root in the canal Allergies Allergen Reactions Mena Shortness of breath Past Medical History: Diagnosis Date Ankle swelling Anxiety Anxiety Asthma Bipolar disorder ([facility]) Depression Depression Diabetes mellitus ([facility]) Diarrhea Fatigue GERD (gastroesophageal reflux disease) Headache [...] FL FLUORO GUIDED LUMBAR PUNCTURE Right 04/08/2021 THYROID SURGERY Right WISDOM TOOTH EXTRACTION Social History Tobacco Use Smoking status: Every Day Types: E-cigarettes Smokeless tobacco: Never Substance and Sexual Activity Drug use: Not Currently Types: Marijuana Comment: occaionally at night Sexual activity: Defer Alcohol Use: Not At Risk (08/19/2023) AUDIT-C Frequency of Alcohol Consumption: Monthly or less Average Number of Drinks: 1 or 2 Frequency of Binge Drinking: Never Family History Problem Relation Age of Onset Heart disease Other Hypertension Other Cancer Other Arthritis Other Diabetes Other No Known Problems Mother No Known Problems Father HOME MEDICATIONS : amoxicillin-clavulanate (AUGMENTIN) 875-125 mg per tablet Dexcom G7 Sensor device DULoxetine DR (CYMBALTA) 30 mg capsule fluconazole (DIFLUCAN) 150 mg tablet ibuprofen (ADVIL,MOTRIN) 800 mg tablet lamoTRIgine (LaMICtal) 200 mg tablet M-Anel Plus 27 mg iron- 1 mg tablet metFORMIN (GLUCOPHAGE) 500 mg tablet nicotine 21-14-7 mg/24 hr patch, TD daily, sequential OneTouch Delica Plus Lancet 33 gauge mis OneTouch Ultra Test strip QUEtiapine (SEROquel) 400 mg tablet TRUEplus Pen Needle 32 gauge x 5/32 needle tiZANidine (ZANAFLEX) 4 mg tablet albuterol HFA (PROVENTIL HFA,VENTOLIN HFA,PROAIR HFA) 90 mcg/actuation inhaler ascorbic acid (VITAMIN C) 500 mg tablet,chewable cholecalciferol (Vitamin D3) 2000 unit tablet gabapentin (NEURONTIN) 300 mg capsule HYDROcodone-acetaminophen (NORCO) 5-325 mg per tablet insulin lispro (HumaLOG) 100 unit/mL pen for injection LANTUS 100 unit/mL (3 mL) pen for injection medroxyPROGESTERone (PROVERA) 10 mg tablet nicotine, polacrilex, 4 mg mini lozenge ondansetron (ZOFRAN) 4 mg tablet QUEtiapine (SEROquel) 200 mg tablet senna-docusate (PERICOLACE) 8.6-50 mg Review of Systems Review of Systems Musculoskeletal: Positive for arthralgias, back pain and myalgias. Physical Exam Vitals: 08/19/23 0855 08/19/23 0902 BP: 120/68 120/68 Pulse: 81 81 Resp: 10 16 Temp: 97.5 ??F (36.4 ??C) 97.5 ??F (36.4 ??C) SpO2: 99% 99% Comment: Room air Weight: 80.3 kg (177 lb) 80.3 kg (177 lb) Height: 157.5 cm (5' 2 ) 157.5 cm (5' 2 ) Body mass index is 32.37 kg/m??. CONSTITUTIONAL: General appearance normal, nutrition normal, no deformities & good grooming. EYES: Normal conjunctivae/lids NECK:Normal inspection and palpation. CARDIOVASCULAR: No extremity edema or varicosities. RESPIRATORY:Normal effort CHEST:Symmetric. GASTROINTESTINAL: Normal abdomen SKIN: No rashes or lesions in the four extremities and back. PSYCHIATRIC: Oriented X3, memory intact, and alert. Normal mood and affect. Normal insight and judgement. MUSCULOSKELETAL EXAMINATION: Gait: Antalgic Midline tenderness to palpation: moderate at thoracic and lumbar region Paraspinal muscular tenderness: mild bilaterally at thoracic and lumbar region Facet tenderness: moderate bilaterally at thoracic and lumbar region Facet loading: positive bilaterally at lumbar region Straight-leg raise positive bilaterally SI joint tenderness: moderate bilaterally Terry finger sign positive bilaterally JERRY test: positive bilaterally Gaenslen's test: positive bilaterally SI joint compression positive bilaterally NEUROLOGIC: CN III-XII grossly intact Lower Ext Power: L2 hip flex 5/5 bilaterally L3 knee ext 5/5 bilaterally L4 foot dorsiflex 5/5 bilaterally L5 hallux dorsiflex 5/5 bilaterally S1 hallux plantar flex 5/5 bilaterally Sensation to light touch: normal bilaterally Assessment 1. Lumbar radiculopathy - Right 2. Sciatica, left side The above note documents my personal evaluation of this patient. In addition, I have reviewed and confirmed with the patient and nurse the supportive information documented in today's scanned PatientHealth Questionnaire and Office Note. Plan 1. Intervention: Given the signs and symptoms of lumbar radiculopathy, we will proceed with LESI injection at the next visit R/B/A discussed, including but not limited to bleeding, infection, and possible nerve injury/paralysis. Alternatives (risks) include: medication management (dependency), no intervention (increased pain). Patient understand risks/benefits/alternatives and agrees to proceed with injection. Patient 2. Medications: a. Opioids: Opioids are not indicated at this current time. b. Adjuvants: We will increase the patient's gabapentin 300 nightly to a goal of 300 TID. 3. Imaging: Due to the patient's symptoms, we will obtain imaging of L-spine MRI 4. Referral: No referrals needed at this current time. and Encourage Home Exercise Program - detailed discussion regarding the importance of consistent use of optimized therapeutic and conditioning exercise programs. 5. Follow-up: At the next possible visit for the procedure listed above. Arnold Sharp MD PhD Clinical Fellow, Pain Management Department of Anesthesiology [facility] in [place] 08/19/23 Cosigned by Elaine Obando MD PhD at 08/21/2023 7:49 PM CDT Associated attestation - Elaine Obando MD PhD - 08/21/2023 7:49 PM CDT I have seen and examined the patient. I agree with the findings and plan of care as documented in the resident/fellow's note. documented in this encounter Plan of Treatment Scheduled Orders Name Type Priority Associated Diagnoses Orde r Schedule Imaging Lumbar/Caudal Epidural Steroid INJ (96370) Imaging Schedule Routine, Read Routine (OP Routine) Lumbar radiculopathy - Right Expected: 08/19/2023, Expires: 08/18/2024 Scheduled Referrals Name Type Priority Associated Diagnoses Order Schedule Ambulatory referral to Pain Management Outpatient Referral Routine Sciatica, left side Once for 1 Occurrences starting 08/19/2023 until 08/19/2023 documented as of this encounter Goals Goal [...] as needed documented as of this encounter Results * MRI Lumbar Spine WO Contrast (08/27/2023 7:53 PM CDT) Anatomical Region Laterality Modality Spine N/A Magnetic Resonan ce 08/28/2023 10:1 9 AM CDT Impressions 08/28/2023 12:26 PM CDT Lumbar spine degenerative changes as described with abutment of the right L3 nerve, left greater than right L5 nerve, and right S1 nerve. No high-grade neural foraminal or canal narrowing. Dictated by: Reinier Castro MD The radiology attending physician has personally reviewed this study, and had reviewed and/or edited this written report and agrees with it. Electronically signed by: Sagar Kidd M.D. Narrative 08/28/2023 12:26 PM CDT EXAMINATION: Magnetic resonance imaging (MRI) of the lumbar spine without contrast HISTORY: Right-sided lumbar radiculopathy TECHNIQUE: Multiplanar multi-weighted MRI of the lumbar spine was performed without intravenous contrast using the standard protocol. COMPARISON: MRI 02/11/2022 FINDINGS: Counting reference: The iliac crest is at the L4-L5 disc space and there are 5 lumbar type vertebra. The distal spinal cord is normal. The conus medullaris terminates at the level of L1-L2. Interspinous edema between L4-S1. Normal lumbar spine alignment. No compression fractures. No marrow replacing lesion. L1-2: The disc is normal in configuration. There is mild bilateral facet arthropathy. There is no neuroforaminal stenosis. There is no spinal canal stenosis. L2-3: Mild disc space narrowing with a asymmetric bulging disc directed towards the right. ??Superimposed upon this bulging disc is a right central and subarticular disc protrusion. ??Right subarticular recess narrowing and abutment of the descending right L3 nerve. There is mild facet arthropathy. There is no neuroforaminal stenosis. There is mild spinal canal stenosis. L3-4: Mild asymmetric bulging disc directed towards right with a superimposed central disc protrusion. There is mild facet arthropathy. There is no neuroforaminal stenosis. There is mild spinal canal stenosis. L4-5: Disc bulge, asymmetrically bulging to the left, with an annular fissure and narrowing of the left greater than right subarticular recesses with abutment of the descending left L5 nerve. There is mild facet arthropathy with thickening of the ligamentum flavum. There is no neuroforaminal stenosis. There is mild spinal canal stenosis. L5-S1: Disc bulge with central and right central protrusion and annular fissure abutting the right descending S1 nerve. There is no facet arthropathy. There is no neuroforaminal stenosis. There is mild spinal canal stenosis. These findings are unchanged compared to 02/11/2021 Procedure Note Sagar Kidd MD - 08/28/2023 EXAMINATION: Magnetic resonance imaging (MRI) of the lumbar spine without contrast HISTORY: Right-sided lumbar radiculopathy TECHNIQUE: Multiplanar multi-weighted MRI of the lumbar spine was performed without intravenous contrast using the standard protocol. COMPARISON: MRI 02/11/2022 FINDINGS: Counting reference: The iliac crest is at the L4-L5 disc space and there are 5 lumbar type vertebra. The distal spinal cord is normal. The conus medullaris terminates at the level of L1-L2. Interspinous edema between L4-S1. Normal lumbar spine alignment. No compression fractures. No marrow replacing lesion. L1-2: The disc is normal in configuration. There is mild bilateral facet arthropathy. There is no neuroforaminal stenosis. There is no spinal canal stenosis. L2-3: Mild disc space narrowing with a asymmetric bulging disc directed towards the right. Superimposed upon this bulging disc is a right central and subarticular disc protrusion. Right subarticular recess narrowing and abutment of the descending right L3 nerve. There is mild facet arthropathy. There is no neuroforaminal stenosis. There is mild spinal canal stenosis. L3-4: Mild asymmetric bulging disc directed towards right with a superimposed central disc protrusion. There is mild facet arthropathy. There is no neuroforaminal stenosis. There is mild spinal canal stenosis. L4-5: Disc bulge, asymmetrically bulging to the left, with an annular fissure and narrowing of the left greater than right subarticular recesses with abutment of the descending left L5 nerve. There is mild facet arthropathy with thickening of the ligamentum flavum. There is no neuroforaminal stenosis. There is mild spinal canal stenosis. L5-S1: Disc bulge with central and right central protrusion and annular fissure abutting the right descending S1 nerve. There is no facet arthropathy. There is no neuroforaminal stenosis. There is mild spinal canal stenosis. These findings are unchanged compared to 02/11/2021 IMPRESSION: Lumbar spine degenerative changes as described with abutment of the right L3 nerve, left greater than right L5 nerve, and right S1 nerve. No high-grade neural foraminal or canal narrowing. Dictated by: Reinier Castro MD The radiology attending physician has personally reviewed this study, and had reviewed and/or edited this written report and agrees with it. Electronically signed by: Sagar Kidd M.D. Arnold Sharp MD PhD IMG MRI PROCEDURES Jesusita l Result documented in this encounter Visit Diagnoses Diagnosis Lumbar radiculopathy - Right- Primary Thoracic or lumbosacral neuritis or radiculitis, unspecified Sciatica, left side Lumbar radiculopathy - Right Thoracic or lumbosacral neuritis or radiculitis, unspecified documented in this encounter Discontinued Medications Medication Sig Discontinue Reason Start Date End Da te tiZANidine (ZANAFLEX) 4 mg tablet TAKE 1 TABLET BY MOUTH EVERY 6-8 HOURS NEEDED, FOR MUSCLE SPASMS 08/13/2023 08/19/2023 documented as of this encounter Historical Medications * This list may reflect changes made after this encounter. QUEtiapine (SEROquel) 400 mg tablet TAKE 1 TABLET BY MOUTH DAILY NEEDED FOR SLEEP 07/21/2023 02/25/2024 tiZANidine (ZANAFLEX) 4 mg tablet TAKE 1 TABLET BY MOUTH EVERY 6-8 HOURS NEEDED, FOR MUSCLE SPASMS 08/13/2023 08/19/2023 fluconazole (DIFLUCAN) 150 mg tablet Take by mouth once 08/10/2023 02/25/2024 amoxicillin-clavu lanate (AUGMENTIN) 875-125 mg per tablet TAKE 1 TABLET BY MOUTH EVERY 12 HOURS FOR 3 DAYS 08/13/2023 09/30/2023 added in this encounter Care Teams Big Machine Consultant Relationship Specialty Start Date End Date Jessica Navarro NP [address] [place] [id number] PCP - General 08/23/20 Ophelia Ashraf MD [address] [facility] [address] [place] [id number] Consulting Physician Endocrinology 04/15/23 documented as of this encounter
--- OUTSIDE RECORDS SUMMARY | 2024-04-14 18:31 | XMS_ITS | Encounter Summary ---
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 N ot on file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 documented as of this encounter Ordered Prescriptions Prescription Sig Dispense Quantity Refills Last Filled Start Date End Date medroxyPROGESTERone (PROVERA) 10 mg tabletIndications:Se condary oligomenorrhea Take 1 tablet (10 mg total) by mouth daily for 10 days 10 tablet 08/25/2023 letrozole (FEMARA) 2.5 mg tabletIndications:In fertility associated with Anovulation Take 1 tablet (2.5 mg total) by mouth daily for 5 days 5 tablet 08/25/2023 4 documented in this encounter Progress Notes * Evelin Feliciano MD - 08/25/2023 10:09 AM CDT R2 Update Letrozole and progesterone re-sent to patient's pharmacy. Evelin Feliciano MD (Simi), MPH OBGYN PGY-2 08/25/2023 documented in this encounter Plan of Treatment [...] as of this encounter Visit Diagnoses Diagnosis Secondary oligomenorrhea Scanty or infrequent menstruation documented in this encounter Discontinued Medications Medication Sig Discontinue Reason Start Date End Da te medroxyPROGESTERone (PROVERA) 10 mg tabletIndications:Secondar y oligomenorrhea Take 1 tablet (10 mg total) by mouth daily for 10 days Reorder 07/14/2023 08/25/2023 documented as of this encounter Care Teams Composition Tile Layer Relationship Specialty Start Date End Date Jessica Navarro NP [address] [place] [id number] PCP - General 08/23/20 Ophelia Ashraf MD [address] [facility] [address] [place] [address] Consulting Physician Endocrinology 04/15/23 documented as of this encounter
--- OUTSIDE RECORDS SUMMARY | 2024-04-14 18:31 | XMS_ITS | Encounter Summary ---
Author Organization [facility] Healthcare Address [address] [place] [address] Care Team Providers Care Christmas Tree Farm Manager Name Role Phone Jessica Navarro NP Primary Care Provider + [phone] Ophelia Ashraf MD Unavailable [phone] Reason for Visit * Reason Onset Date Comments Post-Op Call 05/14/2023 Encounter Details Date Type Department Care Team (Late st Contact Info) Description 05/14/2023 Telephone [facility] Orthopedics [facility] Medicine [address] [place] [phone] Abimael Toledo MA Post-Op Call Social History Tobacco Use Types Packs/Day Years [...] 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 Left message to have her contact the office. H WINDING SUPERVISOR documented in this encounter Plan of Treatment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 documented as of this encounter Visit Diagnoses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documented in this encounter Additional Health Concerns Infection Onset Date Last Indicated Resolved Time COVID: Recovered Comment:Added based on recent COVID infection. 04/20/2023 05/04/2023 07/19/2023 3:05 AM C DT documented as of this encounter Care Teams Christmas Tree Farm Manager Relationship Specialty Start Date End Date Jessica Navarro NP [address] [place] [id number] PCP - General 08/23/20 Ophelia Ashraf MD 4 [facility] [address] [place] [id number] Consulting Physician Endocrinology 04/15/23 documented as of this encounter
--- OUTSIDE RECORDS SUMMARY | 2024-04-14 18:31 | XMS_ITS | Encounter Summary ---
Author Organization [facility] Healthcare Address [address] [place] [address] Care Team Providers Care Automatic Winder Operator Name Role Phone Melanie, Jessica Pinto NP Primary Care Provider + [phone] Ophelia Ashraf MD Unavailable [phone] Encounter Details Date Type Department Care Team (Late st Contact Info) Description 07/14/2023 Orders Only [facility] [address] [facility] 3rd Floor [address] [place] [address] [place] [address] [place] [address] Secondary oligomenorrhea (Primary Dx) Social History Tobacco Use Types [...] 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 Was planning for D21 progesterone to determine ovulation. Patient was planned to start most recent menses on 06/28 but still has not started. Recommended repeat UPTthen starting progesterone withdrawal bleeding w/ Provera 10mg daily x10 days. Discussed recommendation for progesterone on D21 of her cycle. Lab already ordered. All questions answered. Beronica Pichardo MD documented in this encounter Plan of Treatment Not on file documented as of this encounter Visit Diagnoses Diagnosis Secondary oligomenorrhea- Primary Scanty or infrequent menstruation documented in this encounter Additional Health Concerns Infection Onset Date Last Indicated Resolved Time COVID: Recovered Comment:Added based on recent COVID infection. 04/20/2023 05/04/2023 07/19/2023 3:05 AM C DT documented as of this encounter Care Teams Automatic Winder Operator Relationship Specialty Start Date End Date Jessica Navarro NP [address] [place] [address] PCP - General 08/23/20 Ophelia Ashraf MD [address] [place] [address] [address] [place] [id number] Consulting Physician Endocrinology 04/15/23 documented as of this encounter
--- OUTSIDE RECORDS SUMMARY | 2024-04-14 18:31 | XMS_ITS | Encounter Summary ---
Author Organization [facility] Address [address] [place] [address] Care Team Providers Care Spanish Speaking Babysitter Name Role Phone Melanie, Jessica Pinto NP Primary Care Provider + [phone] Ophelia Ashraf MD Unavailable [phone] Reason for Visit * Reason Comments infertility counseling Encounter Details Date Type Department Care Team (Late st Contact Info) Description 05/26/2023 2:45 PM CANCER PROGRAM CONSULTANT Office Visit Obstetrics and Gynecology Clinic [address] [facility] 3rd Floor [address] [place] [address] [place] [address] [place] [address] [address] [place] [address] Infertility counseling (Primary Dx); PCOS (polycystic ovarian syndrome); Type 2 diabetes mellitus with hyperglycemia, with long-term current use of insulin ([facility] ([facility]) Social History Tobacco Use Types Packs/Day Years [...] 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 N ot on file Not on file documented as of this encounter Last Filed Vital Signs Vital Sign Reading Time Taken Comments Blood Pressure 131/83 05/26/2023 2:50 PM CANCER PROGRAM CONSULTANT Pulse 89 05/26/2023 2:50 PM CANCER PROGRAM CONSULTANT Temperature - - Respiratory Rate - - Oxygen Saturation 100% 05/26/2023 2:50 PM CANCER PROGRAM CONSULTANT Inhaled Oxygen Concentration - - Weight 82.3 kg (181 lb 6.4 oz) 05/26/2023 2:50 P M CANCER PROGRAM CONSULTANT Height 162.6 cm (5' 4 ) 05/26/2023 2:50 PM CANCER PROGRAM CONSULTANT Body Mass Index 31.14 05/26/2023 2:50 PM CANCER PROGRAM CONSULTANT documented in this encounter Patient Instructions * Patient Instructions* David Reyes MD - 05/26/2023 2:45 PM CANCER PROGRAM CONSULTANT Take letrozole 2.5mg PO daily x5 days Cycle Day (CD) #3-7 (even if done with menses) Timed intercourse daily to every other day CD #10-20 Lab draw for progesterone on CD #21 If no ovulation per progesterone test, will uptitrate letrozole to 5mg (max 7.5mg) If no menses by CD #40, take test. If negative, take provera 10mg PO daily x10d. Expect menses within 10 days of stopping Provera. If no menses, call Dr. Cruz's office If menses (spontaneous or after Provera), resume at step 2. ER PROGRAM CONSULTANT ER PROGRAM CONSULTANT documented in this encounter Progress Notes * David Reyes MD - 05/26/2023 2:45 PM CST CIVIL LABORATORY TECHNICIAN NEW VISIT Subjective: Lilli Santos is a 28 y.o. G0 who presents for evaluation of infertility. PMH significant for PCOS, T2DM (on metformin), anxiety and depression. Has been trying to conceive with primary OB has been trying for 10 years. She states that she has had two failed marriages due to failure to conceive. She states that all of her partners have conceived quickly with other partners therefore semen analysis has been deferred. She reports a long history of PCOS with signs and symptoms consistent with irregular menses, polycystic ovaries on ultrasoundand sings of hyperandrogenism. With this diagnosis, she was also found to have T2DM which with an original A1c of 14. She was most recently taking lispro and lantus with hypoglycemia and now is just taking metformin BID. She states that she has never had a positive test. She has done several years of testing to see if ovulation is happening but frequently is not ovulating. CIVIL LABORATORY TECHNICIAN History Menses: irregular, states that she can go months without menses and then will have a heavy 5-7 day perio. LMP 05/10/23, potentially due in 2 weeks but unsure if she will have menses. Pap History: was normal. No history of abnormal pap. STD History: none Contraception: Attempting conception HRT: pre-menopausal OB History No obstetric history on file. Past Medical History: Diagnosis Date Anxiety Asthma Bipolar disorder (HCC) Depression Diabetes mellitus (HCC) GERD (gastroesophageal reflux disease) Rheumatoid arthritis (HCC) Thyroid disease Past Surgical History: Procedure Laterality Date ANKLE SURGERY Left ARM SURGERY Right 2 separate surgeries to remove extra tissue under the right armpit BREAST SURGERY breast reduction FL FLUORO GUIDED LUMBAR PUNCTURE Right 03/01/2021 FL FLUORO GUIDED LUMBAR PUNCTURE Right 04/08/2021 THYROID SURGERY Right WISDOM TOOTH EXTRACTION Current Outpatient Medications: albuterol HFA (PROVENTIL HFA,VENTOLIN HFA,PROAIR HFA) 90 mcg/actuation inhaler, Inhale 2 puffs every 4 (four) hours as needed for wheezing, Disp: 1 Inhaler, Rfl: 0 ascorbic acid (VITAMIN C) 500 mg tablet,chewable, Take 1 tablet/chew tab (500 mg total) by mouth 2 (two) times a day, Disp: 60 tablet/chew tab, Rfl: 0 cholecalciferol (Vitamin D3) 2000 unit tablet, Take 1 tablet (2,000 Units total) by mouth daily, Disp: 30 tablet, Rfl: [address] (CYMBALTA) 30 mg capsule, Take 1 capsule every day by oral route., Disp: , Rfl: flash glucose scanning reader (FreeStyle Viviane 2 Crawford) [facility], Use to monitor glucose levels, DX E11.65, Z79.4, Disp: 1 each, Rfl: 0 flash glucose sensor (FreeStyle Viviane 2 Sensor) kit, Use to monitor glucose levels, Change sensor every 14 days. DX E11.65, Z79.4, Disp: 2 kit, Rfl: 4 HYDROcodone-acetaminophen (NORCO) 5-325 mg per tablet, Take 1 tablet by mouth every 6 (six) hours as needed for pain, Disp: 13 tablet, Rfl: 0 ibuprofen (ADVIL,MOTRIN) 800 mg tablet, Take 1 tablet (800 mg total) by mouth every 8 (eight) hoursas needed for pain, Disp: 21 tablet, Rfl: 0 insulin lispro (HumaLOG) 100 unit/mL pen for injection, Use as directed before meals, max 20 units per day, Disp: 15 mL, Rfl: 2 lamoTRIgine (LaMICtal) 25 mg tablet, Take 1 tablet (25 mg total) by mouth 2 (two) times a day, Disp: , Rfl: LANTUS 100 unit/mL (3 mL) pen for injection, 20 Units daily, Disp: , Rfl: M- Plus 27 mg iron- 1 mg tablet, Take 1 tablet by mouth daily, Disp: , Rfl: metFORMIN (GLUCOPHAGE) 500 mg tablet, TAKE 2 TABLETS BY MOUTH TWICE DAILY, Disp: 360 tablet, Rfl: 1 ondansetron (ZOFRAN) 4 mg tablet, Every 4-6 hours as needed, Disp: 30 tablet, Rfl: 1 OneTouch Delica Plus Lancet 33 gauge [facility], , Disp: , Rfl: OneTouch Ultra Test strip, Use to check sugars 3 x per day, Disp: 100 strip, Rfl: 5 QUEtiapine (SEROquel) 100 mg tablet, Take 1 tablet (100 mg total) by mouth nightly, Disp: , Rfl: senna-docusate (PERICOLACE) 8.6-50 mg, [...] Known Problems Mother No Known Problems Father Social History Tobacco Use Smoking status: Every Day Types: E-cigarettes Smokeless tobacco: Never Substance and Sexual Activity Drug use: Yes Types: Marijuana Comment: occaionally at night Sexual activity: Not Currently Alcohol Use: Not At Risk (05/13/2023) AUDIT-C Frequency of Alcohol Consumption: Monthly or less Average Number of Drinks: 1 or 2 Frequency of Binge Drinking: Never Objective: BP 131/83 (BP Location: Left arm, Patient Position: Sitting) Pulse 89 Ht 162.6 cm (5' 4 ) Wt 181 lb 6.4 oz (82.3 kg) LMP 05/10/2023 (Exact Date) SpO2 100% BMI 31.14 kg/m?? Latest Reference Range & Units Most Recent Free T4 0.90 - 1.70 ng/dL 1.11 09/02/22 11:00 TSH 0.30 - 4.20 mcIUnit/mL 1.49 09/02/22 11:00 Formal Ultrasound OSH 12/2022: FINDINGS: UTERUS: The uterus is anteverted. The [...] the pelvis. OTHER: No other significant findings. Hysterosalpingogram 06/2022: FINDINGS: UTERUS: No identified anomalies. No synechia. RIGHT ADNEXA: There is normal patency of the fallopian tube. There is normal contrast spillage into the peritoneum. LEFT ADNEXA: There is normal patency of the fallopian tube. There is normal contrast spillage into the peritoneum. Physical Exam General: NAD, mood appropriate Pulmonary: Non-labored Cardiovascular: Regular rate Abdomen: soft, non-tender, non-distended, without rebound or guarding Extremities: Warm and well perfused GENITAL EXAM: deferred Assessment/Plan: Lilli Santos is a 28 y.o. G0 with infertility. Problem List Endocrine and Metabolic PCOS (polycystic ovarian syndrome) Type 2 diabetes mellitus with hyperglycemia, with long-term current use of insulin ([facility] ([facility]) Genitourinary and Reproductive Infertility counseling - Primary Overview Patient has a long history of infertility with no positive test secondary to PCOS. Workuphas included pelvic ultrasound with signs of PCOS, normal HSG, normal TSH and Hgb A1c with subsequent treatment of newly diagnosed T2DM. Has done many ovulation kits and timed intercourse without success. Discussed cause of infertility likely anovulation in the setting of PCOS. Current Assessment & Plan -Ordered AMH and FSH -Pending results, discussed [...] IgG with next labs -Recommend continuing vitamin Relevant Orders POCT hCG, urine (Completed) Antimullerian hormone (AMH) Follicle stimulating hormone (Completed) RTC in 3 months. Patient seen and discussed with Dr. Nancy Reyes MD Cosigned by Garima Cruz MD at 05/28/2023 3:13 PM CANCER PROGRAM CONSULTANT ER PROGRAM CONSULTANT ER PROGRAM CONSULTANT Associated attestation - Garima Cruz MD - 05/28/2023 3:13 PM CANCER PROGRAM CONSULTANT ATTESTATION: I have seen and examined the patient with the resident and I was present for the mcdaniel portions of the history and physical examination. I have reviewed Dr. Ryees???s history, physical exam, and management plan. I have made appropriate revisions to the note and agree with the findings and plan of care as documented. I was personally present and involved for the CIVIL LABORATORY TECHNICIAN visit . I personally performed the patient counseling. Briefly, 28yo G0 with PCOS and T2DM who desires fertility. Discussion today re: inducing menses ,starting empiric OI with letrozole, timed intercourse, and progesterone check. Garima Cruz MD documented in this encounter Miscellaneous Notes * Assessment & Plan Note - David Reyes MD - 05/28/2023 9:47 AM CANCER PROGRAM CONSULTANT Associated Problem(s): Infertility counseling -Ordered AMH and FSH -Pending results, discussed [...] IgG with next labs -Recommend continuing vitamin ER PROGRAM CONSULTANT ER PROGRAM CONSULTANT documented in this encounter Plan of Treatment Not on file documented as of this encounter Procedures Procedure Name Priority Date/Time Associated Diagnosis Comments ANTIMULLERIAN HORMONE (AMH) Routine 05/26/2023 3:55 PM CANCER PROGRAM CONSULTANT Infertility counseling FOLLICLE STIMULATING HORMONE Routine 05/26/2023 3:55 PM CANCER PROGRAM CONSULTANT Infertility counseling POCT HCG, URINE Routine 05/26/2023 2:51 PM CANCER PROGRAM CONSULTANT Infertility counseling documented in this encounter Results * Follicle stimulating hormone (05/26/2023 3:55 PM CANCER PROGRAM CONSULTANT) FSH 4.0 IUnits/L ILDA HAYES Comment: Interpretive Data Male: Adults: ?1.5 - 12.4 IUnits/L Female: ?? Follicular: ?3.5 - 12.5 IUnits/L Ovulation: ? 4.7 - 21.5 IUnits/L Luteal: ?1.7 - 7.7 IUnits/L Postmenopausal: 25.8 - 134.8 IUnits/L Current interpretive data was last revised 2015. Blood 05/26/2023 3:55 PM CANCER PROGRAM CONSULTANT 05/26/2023 5:05 PM CANCER PROGRAM CONSULTANT us David Reyes MD LAB BLOOD ORDERABLES Final Result [facility] Department [place] [address] * (ABNORMAL) Antimullerian hormone (AMH) (05/26/2023 3:55 PM CANCER PROGRAM CONSULTANT) AMH, ab 16(H) 0.58 - 8.1 ng/mL ILDA HAYES Comment: ADDITIONAL INFORMATION The testing method is an electrochemiluminescence assay manufactured by [employer] and performed on the Im[employer] system. Values obtained with different assay methods or kits may be different and cannot be used interchangeably. This test has been modified from the manufacturers instructions. Its performance characteristics were determined by [facility] in a manner consistent with CLIA requirements. This test has not been cleared or approved by the U.S. Food and Drug Administration. Test Performed by: [facility] [address] [place] [address] Carburetor Rebuilder: Marques Molina M.D. Ph.D.; CLIA# [id number] Blood 05/26/2023 3:55 PM CANCER PROGRAM CONSULTANT 05/26/2023 5:36 PM CANCER PROGRAM CONSULTANT David Reyes MD LAB BLOOD ORDERABLES Final Result [facility] Department [place] [address] * POCT hCG, urine (05/26/2023 2:51 PM CANCER PROGRAM CONSULTANT) HCG, ur, POC Negative Negative Lot Number [id number] QC Backgroud Clear Acceptable QC Control Line Acceptable Urine 05/26/2023 2:51 PM CANCER PROGRAM CONSULTANT David Reyes MD POINT OF CARE TEST OR DERABLES Final Result documented in this encounter Visit Diagnoses Diagnosis Infertility counseling- Primary PCOS (polycystic ovarian syndrome) Polycystic ovaries Type 2 diabetes mellitus with hyperglycemia, with long-term current use of insulin (HCC) documented in this encounter Additional Health Concerns Infection Onset Date Last Indicated Resolved Time COVID: Recovered Comment:Added based on recent COVID infection. 04/20/2023 05/04/2023 07/19/2023 3:05 AM C DT documented as of this encounter Care Teams Spanish Speaking Babysitter Relationship Specialty Start Date End Date Jessica Navarro NP [address] [place] [address] PCP - General 08/23/20 Ophelia Ashraf MD [address] [facility] [address] [address] Consulting Physician Endocrinology 04/15/23 documented as of this encounter
--- OUTSIDE RECORDS SUMMARY | 2024-04-14 18:31 | XMS_ITS | Encounter Summary ---
Author Organization [facility] Healthcare Address [address] [place] [address] Care Team Providers Care Chemical Radiation Technician Name Role Phone Melanie, Jessica Pinto NP Primary Care Provider + [phone] Ophelia Ashraf MD Unavailable [phone] Reason for Visit * Auth/Cert (Routine) Specialty Diagnoses / Procedures Referred By Jonas reeves Referred To Contact Diagnoses De Quervain's tenosynovitis Carpal tunnel syndrome on right De Quervain's tenosynovitis [M65.4] Carpal tunnel syndrome on right [G56.01] Procedures NH NEUROPLASTY &/TRANSPOS MEDIAN NRV CARPAL TUNNE NH INCISION EXTENSOR TENDON SHEATH WRIST Right carpal tunnel release and dequervain's disease release-hand table Referral ID Status Reason Start Date Expiration Date Visits Re quested Visits Authorized [id number] 1 1 Encounter Details Date Type Department Care Team (Late st Contact Info) Description 05/13/2023 7:47 AM RESIDENTIAL INSTALLER Anesthesia Event [facility] Operating Room [address] [place] [address] [place] [address] [place] [address] Juana Burns MD [address] [place], [place] [id number] Anesthesia Record Procedure Summary Procedure Name Responsible Anesthesiologist Anesthesia Start Time Anesthesia Stop Time Right carpal tunnel release and dequervain's disease release (Right: Wrist) Paul Maya MD 05/13/23 0747 05/13/23 0834 Events Date Time Event Comment 05/13/2023 0717 0747 In Room 0747 An Start 0747 An Start Data 0752 An Induction The patient was reevaluated immediately before moderate or deep sedation use and before anesthesia induction. 0753 An LMA 0755 Anesthesia Ready 0807 Proc Start 0807 Incision Start 0824 Proc Fin 0827 Airway Removed 0828 an stop data 0830 Out of Room 0834 An Stop 0834 Handoff to RN I completed my handoff to the receiving nurse during which we: 1. Patient identified 2. Responsible provider identified 3. Pertinent medical history reviewed 4. Procedure type and surgical course discussed 5. Intraoperative anesthetic management and any significant issues discussed 6. Expectations and concerns for postop period discussed 7. Questions solicited from receiving nurse 8. Patient disposition at the time of handoff: No value filed. Meds Name Total midazolam 2 mg fentaNYL 100 mcg propofol 250 mg lidocaine (cardiac) syringe 2 % 100 mg ondansetron 4 mg ceFAZolin (ANCEF) 2,000 mg/20 mL in ster ile water (premix) 2,000 mg 2,000 mg sodium chloride 0.9% infusion 1,000 mL * Agents Name O2 N2O Air Sevoflurane Inspired Sevoflurane * Blood No blood administrations on file. Lines, Drains, and Airways Type Details Placement Removal Peripheral IV Placement Date: 05/13/23; Placement Time: 0645; Catheter Size: 20 G; Orientation: Left; Location: Antecubital; Removal Date: 05/13/23; Removal Time: 1119 05/13/23 0645 by Trae Garcia RN 05/13/23 1119 by Trae Garcia RN RETIRED Surgical Site 05/13/23; 0815; Right; Arm; 03/29/24 (Retired LDA, Removed/Completed by [facility] with LDA Utility); 1213 (Retired LDA, Removed/Completed by [facility] with LDA Utility) 05/13/23 0815 by Becky Veras RN 03/29/24 1213 by Discharge Provider, Automatic RETIRED Surgical Site 05/13/23; 0815; Right; Hand; 03/29/24 (Retired LDA, Removed/Completed by [facility] with LDA Utility); 1213 (Retired LDA, Removed/Completed by [facility] with LDA Utility) 05/13/23 0815 by Becky Veras RN 03/29/24 1213 by Discharge Provider, Automatic documented in this encounter Social History Tobacco [...] 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 N ot on file Not on file documented as of this encounter OR Notes * Anesthesia Postprocedure Evaluation - Paul Maya MD - 05/13/2023 9:22 AM CST Patient: Lilli Santos Procedure Summary Date: 05/13/23 Room / Location: [facility] OR [address] [place] [address] OPERATING ROOM Anesthesia Start: 746 Anesthesia Stop: 833 Procedure: Right carpal tunnel release and dequervain's disease release (Right: Wrist) Diagnosis: De Quervain's tenosynovitis Carpal tunnel syndrome on right (De Quervain's tenosynovitis [M65.4]) (Carpal tunnel syndrome on right [G56.01]) Providers: Yefri Burgess MD Responsible Provider: Paul Maya MD Anesthesia Type: general ASA Status: 3 Anesthesia Type: general Last vitals BP 117/78 Pulse 74 Temp 36.4 ??C (97.5 ??F) (Temporal) Resp 20 SpO2 99% Anesthesia Post Evaluation Patient location during evaluation: PACU Patient participation: complete - patient participated Level of consciousness: fully awake Pain management: satisfactory to patient Airway patency: adequate Cardiovascular status: acceptable Respiratory status: acceptable Hydration status: acceptable Pt is: normothermic Nausea/Vomiting status: none No notable events documented. DENTIAL INSTALLER * Anesthesia Procedure Notes - Rivas Lou CRNA - 05/13/2023 8:03 AM RESIDENTIAL INSTALLER Associated Order(s): Airway Airway Indications for airway management: anesthesia Difficult airway: no Staff: Placed by: WHOLESALE BUYER: Rivas Lou CRNA Emergent airway documentation: Risks and benefits discussed: yes Consent obtained: yes Consent given by: patient Airway prep: Preoxygenated: yes Mask difficulty assessment: 1 - vent by mask Spontaneous ventilation during airway: absent Sedation level during airway: GA Final airway details: Final airway type: supraglottic airway Final supraglottic airway: classic SGA size: 3 Number of attempts: 1 Planned trial extubation: yes DENTIAL INSTALLER * Anesthesia Preprocedure Evaluation - Paul Maya MD - 05/13/2023 7:11 AM CST Images from the original note were not included. Anesthesia Evaluation Lilli Santos is a 28 y.o. female Procedure(s): Right carpal tunnel release and dequervain's disease release-hand table Pre-Op Diagnosis Codes: * De Quervain's tenosynovitis [M65.4] * Carpal tunnel syndrome on right [G56.01] HISTORY Past Medical History Information obtained from: patient and chart. Neurological + Psychiatric history - bipolar Respiratory + Asthma + Sleep apnea (ELLI) Prescribed device: CPAP. + Current smoker - Counseled to abstain from smoking the day of surgery. Patient refrained from smoking on day of surgery. Gastrointestinal + GERD - on daily therapy. Endocrine / Other + Diabetes mellitus - Diabetes type 2. Outpatient insulin use: current. + Thyroid disease - hypothyroidism + Obesity (BMI >30) + Rheumatological disease - rheumatoid arthritis. Comments: PCOS Day of Surgery assessments + Possibility of assessed - HCG negative (see labs). Patient Active Problem List Diagnosis Date Noted De Quervain's tenosynovitis 05/04/2023 Carpal tunnel syndrome on right 05/04/2023 Macromastia 08/29/2022 Type 2 diabetes mellitus with hyperglycemia, with long-term current use of insulin ([facility]) (HCC) 05/12/2022 Benign thyroid cyst 04/14/2022 Acquired deformity of left toe 03/29/2020 ELLI (obstructive sleep apnea) 03/01/2019 Tobacco use disorder 03/01/2019 Large breasts 11/12/2018 Mixed anxiety and depressive disorder 10/19/2018 PCOS (polycystic ovarian syndrome) 10/19/2018 Abdominal pain 02/05/2018 Impaired fasting blood sugar 02/05/2018 Chronic back pain 09/23/2017 Oligomenorrhea 05/12/2017 Asthmatic bronchitis 12/16/2016 Mild intermittent asthma 12/16/2016 Obesity 12/16/2016 Lymphadenopathy of head and neck region 06/13/2016 Past Medical History: Diagnosis Date Anxiety Asthma Bipolar disorder ([facility]) Depression Diabetes mellitus ([facility]) GERD (gastroesophageal reflux disease) Rheumatoid arthritis ([facility]) Thyroid disease Past Surgical History: Procedure Laterality Date ANKLE SURGERY Left ARM SURGERY Right 2 separate surgeries to remove extra tissue under the right armpit BREAST SURGERY breast reduction FL FLUORO GUIDED LUMBAR PUNCTURE Right 03/01/2021 FL FLUORO GUIDED LUMBAR PUNCTURE Right 04/08/2021 THYROID SURGERY Right WISDOM TOOTH EXTRACTION OB History No obstetric history on file. Allergies Allergen Reactions Mena Shortness of breath Med List Status: Nurse Complete Set By: Mimi Cuello RN at 05/04/2023 2:35 PM Taking? Last Dose Start Date End Date Provider albuterol HFA (PROVENTIL HFA,VENTOLIN HFA,PROAIR HFA) 90 mcg/actuation inhaler Past Month 05/14/20 05/13/23 Mykel Duque MD Inhale 2 puffs every 4 (four) hours as needed for wheezing DULoxetine DR (CYMBALTA) 30 mg capsule 05/12/2023 -- -- Provider, MD Sole flash glucose scanning reader (TraktoPRO Viviane 2 [place]) [facility] -- 05/23/22 -- Ophelia Ashraf MD Use to monitor glucose levels, DX E11.65, Z79.4 flash glucose sensor (FreeStyle Viviane 2 Sensor) kit -- 02/13/23 -- Ophelia Ashraf MD Use to monitor glucose levels, Change sensor every 14 days. DX E11.65, Z79.4 ibuprofen (ADVIL,MOTRIN) 800 mg tablet Past Week 09/09/21 -- Maia Garcia MD Take 1 tablet (800 mg total) by mouth every 8 (eight) hours as needed for pain insulin lispro (HumaLOG) 100 unit/mL pen for injection Past Month 05/12/22 -- Ophelia Ashraf MD Use as directed before meals, max 20 units per day lamoTRIgine (LaMICtal) 25 mg tablet 05/12/2023 -- -- Sole Reardon MD LANTUS 100 unit/mL (3 mL) pen for injection Past Month 03/27/22 -- ProviderSole MD M- Plus 27 mg iron- 1 mg tablet Past Week 03/26/23 -- Sole Reardon MD metFORMIN (GLUCOPHAGE) 500 mg tablet 05/12/2023 10/24/22 -- Ophelia Ashraf MD TAKE 2 TABLETS BY MOUTH TWICE DAILY OneTouch Delica Plus Lancet 33 gauge [facility] -- 03/27/22 -- Sole Reardon MD OneTouch Ultra Test strip -- 05/12/22 -- Ophelia Ashraf MD Use to check sugars 3 x per day QUEtiapine (SEROquel) 100 mg tablet 05/12/2023 -- -- Sole Reardon MD TRUEplus Pen Needle 32 gauge x 5/32 needle -- 05/12/22 -- Ophelia Ashraf MD Use 3 per day for insulin pen Current Facility-Administered Medications: ceFAZolin (ANCEF) 2,000 mg/20 mL in sterile water (premix) 2,000 mg, 2,000 mg, intravenous, Once sodium chloride 0.9% infusion, 30 mL/hr, intravenous, Continuous, Last Rate: 30 mL/hr at 05/13/23 0648, 30 mL/hr at 05/13/23 0648 Social History Tobacco Use Smoking Status Every Day Types: E-cigarettes Smokeless Tobacco Never Alcohol Use: Not At Risk (05/13/2023) AUDIT-C Frequency of Alcohol Consumption: Monthly or less Average Number of Drinks: 1 or 2 Frequency of Binge Drinking: Never Substance and Sexual Activity Drug Use Yes Types: Marijuana Comment: occaionally at night Family History Problem Relation Age of Onset Heart disease Other Hypertension Other Cancer Other Arthritis Other Diabetes Other No Known Problems Mother No Known Problems Father Vitals: 05/13/23 0634 BP: 134/92 Pulse: 82 Resp: 18 Temp: 36.5 ??C (97.7 ??F) SpO2: 100% PT: No results found for requested labs within last 30 days. INR: No results found for requested labs within last 30 days. APTT: No results found for requested labs within last 30 days. Hgb A1C: 04/14/2023: 6.8 % CBC RBC: No results found for requested labs within last 30 days. RDW: No results found for requested labs within last 30 days. MCHC: No results found for requested labs within last 30 days. MCH: No results found for requested labs within last 30 days. MCV: No results found for requested labs within last 30 days. Hct: No results found for requested labs within last 30 days. Hgb: No results found for requested labs within last 30 days. WBC: No results found for requested labs within last 30 days. MPV: No results found for requested labs within last 30 days. Platelets: No results found for requested labs within last 30 days. RDW CV: No results found for requested labs within last 30 days. RDW Sd: No results found for requested labs within last 30 days. BMP Glucose: 05/13/2023: 112 mg/dL (H) Calcium: No results found for requested labs within last 30 days. Sodium: No results found for requested labs within last 30 days. Potassium: No results found for requested labs within last 30 days. CO2: No results found for requested labs within last 30 days. Chloride: No results found for requested labs within last 30 days. BUN: No results found for requested labs within last 30 days. Creatinine: No results found for requested labs within last 30 days. STOP-Bang Total Score: 2 DOS Physical Exam Medical history, medications, and allergies reviewed. Attestation: This PAT evaluation 05/13/2023. Airway Exam: Mallampati: II Cervical ROM: FROM TM distance: >4 Cardiovascular Exam: Rate: regular Rhythm: regular Pulmonary Exam: LCTA, bilat EENT Exam: trachea midline Dental Exam: Appears intact and braces Current state: Patient's current state is cooperative. Anesthesia Plan ASA 3 My patient is approved for the Anesthesia Controlled Medication protocol when under care of a WHOLESALE BUYER Planned anesthesia: General Team communication plan: LMA Induction: Induction: intravenous. Postoperative Plan: Postoperative administration opioids intended. No postoperative mechanical ventilation intended. Patient's planned disposition post procedure is Outpatient. Informed Consent: Discussed plan with attending and WHOLESALE BUYER. Anesthesia plan and risks discussed with patient. Consent and Attending signature: I and/or my designee have discussed the anesthesia plan, benefits, possible alternatives, parental presence at time of induction (if indicated), and clinically relevant risks that may include dental injury, unintentional awareness, and/or other complications. The patient and/or parent/legal guardian understand, and agree to proceed. All questions answered. DENTIAL INSTALLER documented in this encounter Plan of Treatment Not on file documented as of this encounter Procedures Procedure Name Priority Date/Time Associated Diagnosis Comments ANESTHESIA INTUBATION Routine 05/13/2023 8:03 AM RESIDENTIAL INSTALLER documented in this encounter Results * Airway (05/13/2023 8:03 AM RESIDENTIAL INSTALLER) Narrative Rivas Lou CRNA - 05/13/2023 8:03 AM RESIDENTIAL INSTALLER Rivas Lou CRNA ? 05/13/2023 ??8:04 AM Airway Indications for airway management: anesthesia Difficult airway: no Staff: Placed by: WHOLESALE BUYER: Rivas Lou CRNA Emergent airway documentation: Risks and benefits discussed: yes Consent obtained: yes Consent given by: patient Airway prep: Preoxygenated: yes Mask difficulty assessment: 1 - vent by mask Spontaneous ventilation during airway: absent Sedation level during airway: GA Final airway details: Final airway type: supraglottic airway Final supraglottic airway: classic SGA size: 3 Number of attempts: 1 Planned trial extubation: yes Paul Maya MD ANESTHESIA ORDERABLES Fi nal Result documented in this encounter Visit Diagnoses Not on filedocumented in this encounter Administered Medications Inactive Administered Medications - up to 3 most recent administrations Medication Order MAR Action Action Date Dose Rate Site ceFAZolin (ANCEF) 2,000 mg/20 mL in sterile water (premix) 2,000 mg 2,000 mg, intravenous, at 400 mL/hr, Administer over 3 Minutes, Once, On Thu05/13/23 at 0700, For 1 dose, Pre-Op, Administer within 60 minutes of incision., Indications: Prophylaxis, SurgicalIndications:Prophylaxis, Surgical Given 05/13/2023 8:00 AM RESIDENTIAL INSTALLER 2,000 mg fentaNYL (SUBLIMAZE) preservative free injection intravenous, As needed, Starting on Thu05/13/23 at 0803, Anesthesia Intra-op Given 05/13/2023 8:08 AM RESIDENTIAL INSTALLER 75 mcg Given 05/13/2023 8:03 AM RESIDENTIAL INSTALLER 25 mcg lidocaine (XYLOCAINE) 20 mg/mL (2 %) preservative free injection intravenous, As needed, Starting on Thu05/13/23 at 0752, Anesthesia Intra-op Given 05/13/2023 7:52 AM RESIDENTIAL INSTALLER 100 mg midazolam (VERSED) 1 mg/mL preservative free injection intravenous, Administer over 2 Minutes, As needed, Starting on Thu05/13/23 at 0747, Anesthesia Intra-op Given 05/13/2023 7:47 AM RESIDENTIAL INSTALLER 2 mg ondansetron (ZOFRAN) injection intravenous, Administer over 2 Minutes, As needed, Starting on Thu05/13/23 at 0812, Anesthesia Intra-op Given 05/13/2023 8:12 AM RESIDENTIAL INSTALLER 4 mg propofoL (DIPRIVAN) 10 mg/mL IV intravenous, As needed, Starting on Thu05/13/23 at 0752, Anesthesia Intra-op Bolus 05/13/2023 8:11 AM RESIDENTIAL INSTALLER 50 mg New Bag 05/13/2023 7:52 AM RESIDENTIAL INSTALLER 200 mg sodium chloride 0.9% infusion 30 mL/hr, intravenous, Continuous, Starting on Thu05/13/23 at 0700, Pre-Op New Bag 05/13/2023 8:10 AM RESIDENTIAL INSTALLER Rate/Dose Verify 05/13/2023 7:47 AM RESIDENTIAL INSTALLER 30 mL/h r New Bag 05/13/2023 6:48 AM RESIDENTIAL INSTALLER 30 mL/hr 30 mL/hr documented in this encounter Additional Health Concerns Infection Onset Date Last Indicated Resolved Time COVID: Recovered Comment:Added based on recent COVID infection. 04/20/2023 05/04/2023 07/19/2023 3:05 AM C DT documented as of this encounter Care Teams Chemical Radiation Technician Relationship Specialty Start Date End Date Jessica Navarro NP [address] [place] [address] PCP - General 08/23/20 Ophelia Ashraf MD [address] [place] [address] Consulting Physician Endocrinology 04/15/23 documented as of this encounter
--- OUTSIDE RECORDS SUMMARY | 2024-04-14 18:31 | XMS_ITS | Encounter Summary ---
Author Organization [facility] Healthcare Address [address] [place] [address] Care Team Providers Care Grocery Stocker Name Role Phone Melanie, Jessica Pinto NP Primary Care Provider + [phone] Ophelia Ashraf MD Unavailable [phone] Reason for Referral * Diagnostic Imaging (Routine) - Closed Specialty Diagnoses / Procedures Referred By Jonas reeves Referred To Contact Diagnoses Lumbar radiculopathy Procedures Imaging Lumbar/Caudal Epidural Steroid INJ (93502) Guevara Sharp MD PhD Phone: tel: fax: [address] [phone] Referral ID Status Reason Start Date Expiration Date Visits Re quested Visits Authorized [id number] Closed 09/30/2023 12/29/2023 1 1 Encounter Details Date Type Department Care Team (Late st Contact Info) Description 09/14/2023 Telephone [facility] [address] [facility] [address] [place] [address] Guevara Sharp MD PhD [address] [place] [address] Social History Tobacco Use Types Packs/Day Years [...] 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 L1-2: Mild bilateral facet arthropathy. L2-3: Dis bulge. Abutment of right L3 nerve. Mild facet arthropathy. Mild spinal canal stenosis. L3-4: Mild bulging disc. Mild facet arthropathy. Mild spinal canal stenosis. L4-5: Disc bulge. Abutment of left L5 nerve. Mild facet arthropathy. Mild spinal canal stenosis. L5-S1: Disc bulge. Abutment of the right S1 nerve. Mild spinal canal stenosis. Summary Multilevel degenerative disc disease with abutment of the right L3 nerve, left greater than right L5 nerve, and right S1 nerve. Mild spinal canal stenosis. *please schedule her for LESI, any improvement with gabapentin? If tolerating well and some benefit, please instruct to uptitrate to 600 TID gradually. documented in this encounter Plan of Treatment [...] documented as of this encounter Results * Imaging Lumbar/Caudal Epidural Steroid INJ (27156) (09/30/2023 11:06 AM CDT) Narrative [facility] - 09/30/2023 11:07 AM CDT The images from this study are not interpreted by Radiology. ??Please refer to the physician's procedure / OR operative note. Guevara Sharp MD PhD IMG PAIN MGMT PROCEDURE S Final Result [facility] documented in this encounter Visit Diagnoses Diagnosis Lumbar radiculopathy- Primary Thoracic or lumbosacral neuritis or radiculitis, unspecified Lumbar radiculopathy- Primary Thoracic or lumbosacral neuritis or radiculitis, unspecified Chronic bilateral low back pain with right-sided sciatica documented in this encounter Care Teams Grocery Stocker Relationship Specialty Start Date End Date Jessica Navarro NP [address] [place] [address] PCP - General 08/23/20 Ophelia Ashraf MD [address] [facility] [address] [place] [address] Consulting Physician Endocrinology 04/15/23 documented as of this encounter
--- OUTSIDE RECORDS SUMMARY | 2024-04-14 18:31 | XMS_ITS | Encounter Summary ---
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 Patient to send message on nearby lab for 21D progesterone. All questions answered. David Reyes MD PGY-2, OBGYN FARM MANAGER documented in this encounter Plan of Treatment Not on file documented as of this encounter Visit Diagnoses Not on filedocumented in this encounter Additional Health Concerns Infection Onset Date Last Indicated Resolved Time COVID: Recovered Comment:Added based on recent COVID infection. 04/20/2023 05/04/2023 07/19/2023 3:05 AM C DT documented as of this encounter Care Teams Derrick Helper Relationship Specialty Start Date End Date Melanie, Jessica Pinto NP [address] [place] [address] PCP - General 08/23/20 Ophelia Ashraf MD [address] [facility] [address] [place] [address] Consulting Physician Endocrinology 04/15/23 documented as of this encounter
--- OUTSIDE RECORDS SUMMARY | 2024-04-14 18:31 | XMS_ITS | Encounter Summary ---
Author Organization [facility] Healthcare Address [address] [place] [address] Care Team Providers Care Thermostat Maker Name Role Phone Jessica Navarro NP Primary Care Provider + [phone] Ophelia Ashraf MD Unavailable [phone] Reason for Visit * Reason Comments Post-op Encounter Details Date Type Department Care Team (Latest Contact Info) Description 07/03/2023 11:45 AM CHANNEL TURNER Office Visit [facility] Orthopedics and Sports Medicine [address] [place] [address] [address] [place] [address] Topher Dong PA [address] [place] [address] [address] [place] [address] S/P carpal tunnel release (Primary Dx); Aftercare following surgery of the musculoskeletal system Social History Tobacco Use Types Packs/Day Years [...] 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 N ot on file Not on file documented as of this encounter Last Filed Vital Signs Vital Sign Reading Time Taken Comments Blood Pressure 119/81 07/03/2023 11:43 AM CHANNEL TURNER Pulse 72 07/03/2023 11:43 AM CHANNEL TURNER Temperature - - Respiratory Rate - - Oxygen Saturation - - Inhaled Oxygen Concentration - - Weight 80.3 kg (177 lb) 07/03/2023 11:43 AM CHANNEL TURNER Height 162.6 cm (5' 4 ) 07/03/2023 11:43 AM CHANNEL TURNER Body Mass Index 30.38 07/03/2023 11:43 AM CHANNEL TURNER documented in this encounter Ordered Prescriptions Prescription Sig Dispense Quantity Refills Last Filled Start Date End Date predniSONE (DELTASONE) 10 mg tablet Take 2 tablets (20 mg) by mouth 2 (two) times a day for 7 days 28 tablet 07/03/2023 4 documented in this encounter Progress Notes * Topher Dong PA - 07/03/2023 11:45 AM CST Images from the original note were not included. Post-Op Visit Note HPI: Patient is 7 weeks s/p carpal tunnel release and 1st dorsal compartment release. Pain is not well controlled. Presurgical symptoms are improving with regards to her numbness and tingling. However thepatient has significant postoperative pain and edema. She is also begun to have a catching sensation in the 1st dorsal compartment. Vital signs: height is 162.6 cm (5' 4 ) and weight is 80.3 kg (177 lb). Her blood pressure is 119/81 and her pulse is 72. Exam: Well approximated healing post operative incision. No active erythema, draining, or signs of infection present. Neurovascular status is intact. Increased edema noted around the incision sites. Full AROM of wrist and digits. Assessment: Diagnosis Plan 1. S/P carpal tunnel release 2. Aftercare following surgery of the musculoskeletal system Plan: Discussed continued post op expectations and recovery. Unfortunately the patient's postoperative recovery has been delayed due to significant pain and edema. I recommend that she start utilizing an oral steroid and pause taking these 800 mg of ibuprofen daily. Prednisone 20 mg b.i.d. for 7 days hasbeen prescribed. I also want her to start occupational therapy. This will be ordered for her at [facility]. Lastly I placed her into a thumb spica wrist splint to help support her wrist and thumb to allow decreased irritation. I advised her to keep her lifting to minimal, less than 5 lb at this time. Questions were answered. Patient expressed full understanding and agreement of plan. NEL TURNER documented in this encounter Plan of Treatment Not on file documented as of this encounter Visit Diagnoses Diagnosis S/P carpal tunnel release- Primary Other postprocedural status Aftercare following surgery of the musculoskeletal system Aftercare following surgery of the musculoskeletal system, NEC documented in this encounter Additional Health Concerns Infection Onset Date Last Indicated Resolved Time COVID: Recovered Comment:Added based on recent COVID infection. 04/20/2023 05/04/2023 07/19/2023 3:05 AM C DT documented as of this encounter Care Teams Thermostat Maker Relationship Specialty Start Date End Date Jessica Navarro NP [address] [place] [id number] PCP - General 08/23/20 Ophelia Ashraf MD [address] [facility] [address] [place] [address] Consulting Physician Endocrinology 04/15/23 documented as of this encounter
--- OUTSIDE RECORDS SUMMARY | 2024-04-14 18:31 | XMS_ITS | Encounter Summary ---
Author Organization [facility] Healthcare Address [address] [place] [address] Care Team Providers Care Front Desk Administrator Name Role Phone Jessica Navarro NP Primary Care Provider + [phone] Ophelia Ashraf MD Unavailable [phone] Reason for Visit * Reason Comments Diabetes Type 2 Encounter Details Date Type Department Care Team (Late st Contact Info) Description 07/14/2023 8:30 AM CDT Office Visit [facility] of [address] [place] [address] Malini Cummins, ANA LILIA 2 [facility] [address] [place] [address] Type 2 diabetes mellitus without complication, without long-term current use of insulin ([facility]) ([facility]) (Primary Dx); Tobacco use disorder; freestyle elvia 2 continuous glucose monitoring device; Class 1 obesity due to excess calories with serious comorbidity and body mass index (BMI) of 30.0 to 30.9 in adult Social History Tobacco Use Types [...] 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 I am thankful you have trusted me with your care, and hope that you received EXCELLENT care today! Please do not hesitate to call if you have any questions or concerns at [phone]. You may receive a phone call or text asking about your care today. I would love to hear your input and again, hope your visit was as EXCELLENT as possible, even if you were not feeling your best! Medications: Please take medications as prescribed. Continue metformin 1000mg twice daily. Monitoring: Check blood sugar continuously with the freestyle elvia 2 sensor. Will switch to dexcom 7 We will be requesting to see blood [...] once per week. To see the Dietitian, Guest House Manager or attend Diabetes Class, Schedule an appointment by calling Centralized Scheduling at [phone]. Exercise: Try moving at least a total [...] Refills Last Filled Start Date End Date Dexcom G7 Sensor deviceIndications :Type 2 diabetes mellitus without complication, without long-term current use of insulin ([facility]) ([facility]) 1 Device continuously . Change every 10 days. E11.9 10 each 3 07/14/2023 4 nicotine, polacrilex, 4 mg mini lozengeIndication s:Smoking Cessation Apply 1 tablet to cheek as needed (for break through nicotine craving.) 135 each 3 07/14/2023 4 nicotine 21-14-7 mg/24 hr patch, TD daily, sequentialIndicat ions:Smoking Cessation Place one patch to skin daily: 21 mg/24 hr for 28 days, 14 mg/24 hr for 14days, 7 mg/24 hr for 14 days. E11.9 56 patch 1 07/14/2023 4 documented in this encounter Progress Notes * Malini Cummins, CONTROLS PROJECT ENGINEER - 07/14/2023 8:30 AM CDT Images from the original note were not included. Patient ID: Lilli Santos is a 28 y.o. female. Chief Complaint Diabetes Type 2 Today visit is a follow up visit for treatment of Type 2 Diabetes. she was diagnosed with Diabetes in 2019 and started insulin 2021 and weaned off insulin with weight loss in 04/18. she exercises by lifting weights. She reports getting away from it but is planning to get back to it. she eats 2 meals/day and snacks. she monitors blood sugar continuously with [employer] elvia 2. Downloaded blood sugar results were provided. She is requesting to switch to the Dexcom 7 sensor. she denies hypoglycemia. her weight has decreased by 13 lbs. she reports medication compliance is good. She is actively trying to get . She has seen a cell attendant helper in [place], she is aware if she gets she wouldneed to be considered high-risk. She was requesting nicotine patches to help her stopped smoking. Today's visit is to review labs and [...] Labs: Lab Results Component Value Date HGBA1C 6.0 07/14/2023 HGBA1C 6.8 04/14/2023 HGBA1C 9.8 12/18/2022 HGBA1C 8.1 (H) 07/02/2022 HGBA1C 14.0 05/12/2022 Chemistry Lab Results Component Value Date SODIUM 144 04/10/2023 POTASSIUM 3.5 04/10/2023 CHLORIDE 103 04/10/2023 CO2 29 04/10/2023 ANIONGAP 12 04/10/2023 BUNSER 10 04/10/2023 CREATININE 0.81 04/10/2023 GLUCOSE 129 (H) 05/13/2023 CALCIUM 9.6 04/10/2023 BILITOT 0.9 12/28/2022 ALBUMIN 5.3 (H) 12/28/2022 GFRNAA >90 04/10/2023 ALKPHOS 89 12/28/2022 AST 75 (H) 12/28/2022 ALT 123 (H) 12/28/2022 MAGNESIUM 2.0 05/14/2020 Lab Results Component Value Date ALBUMINUR <12.0 09/02/2022 CREATININEUR 139.4 09/02/2022 ALBCREATRATU <9 09/02/2022 Lab Results Component Value Date CHOL 215 (H) 09/02/2022 HDL 34 (L) 09/02/2022 TRIG 214 (H) 09/02/2022 LDLCALC 138 (H) 09/02/2022 Lab Results Component Value Date TSH 1.49 09/02/2022 Assessment/Plan Diagnoses and all orders for this visit: Type 2 diabetes mellitus without complication, without long-term current use of insulin ([facility]) ([facility]) (Primary) Assessment & Plan: This [...] Not on statin therapy, trying to get Orders: - POCT glucose - POCT hemoglobin A1c - Dexcom G7 Sensor device; 1 Device continuously . Change every 10 days. E11.9 - Albumin Creatinine Ratio, Urine; Future - Comprehensive metabolic panel; Future - Lipid panel; Future - Thyroid Function [place]; Future Tobacco use disorder Assessment & Plan: She is still smoking, but wants to stop as she is trying to get Nicotine patches and lozenges yrs ordered Encouraged her to use the patches as per the manufacture guidelines Use the lozenges for breakthrough feelings of needing a cigarette Verbalized understanding She has use the patches in the past Orders: - nicotine 21-14-7 mg/24 hr patch, TD daily, sequential; Place one patch to skin daily: 21 mg/24 hrfor 28 days, 14 mg/24 hr for 14days, 7 mg/24 hr for 14 days. E11.9 - nicotine, polacrilex, 4 mg mini lozenge; Apply 1 tablet to cheek as needed (for break through nicotine craving.) freestyle elvia 2 continuous glucose monitoring device Assessment & Plan: Continuous glucose monitor (cgm) applied from 06/11/2023 to 06/24/2023 This device was placed for monitor and treatment of blood sugar. Interpretation of data- average glucose 116. In target range 99%. 0 hypoglycemia. 1% hyperglycemia Class 1 obesity due to excess calories with serious comorbidity and body mass index (BMI) of 30.0 to 30.9 in adult Assessment & Plan: This is a chronic condition which is improving 13 lb weight loss since last office visit Encourage continue healthy eating and exercise Discussed and educated on eating a healthy [...] medications. Return in about 6 months (around 01/14/2024). Malini Cummins NP documented in this encounter Miscellaneous Notes * Assessment & Plan Note - Malini Cummins NP - 07/14/2023 8:55 AM CDTAssociated Problem(s): Class 1 obesity due to excess calories with serious comorbidity and body mass index (BMI) of 33.0 to 33.9 in adult This is a chronic condition which is improving 13 lb weight loss since last office visit Encourage continue healthy eating and exercise * Assessment & Plan Note - Malini Cummins NP - 07/14/2023 8:54 AM CDTAssociated Problem(s): Tobacco use disorder She is still smoking, but wants to stop as she is trying to get Nicotine patches and lozenges yrs ordered Encouraged her to use the patches as per the manufacture guidelines Use the lozenges for breakthrough feelings of needing a cigarette Verbalized understanding She has use the patches in the past * Assessment & Plan Note - Malini Cummins NP - 07/14/2023 8:53 AM CDTAssociated Problem(s): Type 2 diabetes mellitus without complication, without long-term current useof insulin ([facility]) ([facility]) This is a chronic condition [...] Not on statin therapy, trying to get * Assessment & Plan Note - Malini Cummins NP - 07/14/2023 8:33 AM CDTAssociated Problem(s): Odotech elvia 2 continuous glucose monitoring device Continuous glucose monitor (cgm) applied from 06/11/2023 to 06/24/2023 This device was placed for monitor and treatment of blood sugar. Interpretation of data- average glucose 116. In target range 99%. 0 hypoglycemia. 1% hyperglycemia documented in this encounter Plan of Treatment Not on file documented as of this encounter Procedures Procedure Name Priority Date/Time Associated Diagnosis Comments POCT HEMOGLOBIN A1C Routine 07/14/2023 8 :34 AM CDT Type 2 diabetes mellitus without complication, without long-term current use of insulin ([facility]) ([facility]) POCT GLUCOSE Routine 07/14/2023 8:33 AM CDT Type 2 diabetes mellitus without complication, without long-term current use of insulin ([facility]) ([facility]) documented in this encounter Results * Thyroid Function [place] (07/14/2023 8:54 AM CDT) TSH 2.21 0.30 - 4.20 mcIUnit/mL Blood 07/14/2023 8:54 AM CDT 07/14/2023 11:02 AM CDT Malini Cummins NP LAB BLOOD ORDERABLES Final Resu lt [facility] ([place]) 1 [facility] [place] [address] * (ABNORMAL) Lipid panel (07/14/2023 8:54 AM [...] last revised on 2017. Chol/HDL ratio 4 [facility] ([place]) Blood 07/14/2023 8:54 AM CDT 07/14/2023 11:02 AM CDT Narrative [facility] ([place]) - 07/14/2023 11:35 AM CDT These lab test should be done fasting. This means do not eat or drink for at least 12 hours prior to getting your blood drawn. us Malini Cummins NP LAB BLOOD ORDERABLES Final Resu lt [facility] ([place]) 1 [facility] [place] [address] * Comprehensive metabolic panel (07/14/2023 8:54 AM CDT) Sodium 139 135 - 145 mmol/L Potassium, pl 4.0 3.3 - 4.9 mmol/L [facility] ([place]) Chloride 102 97 - 110 mmol/L [facility] ([place]) CO2 27 22 - 32 mmol/L [facility] ([place]) Anion gap 10 2 - 15 mmol/L [facility] ([place]) BUN 13 6 - 25 mg/dL [facility] ([place]) Creatinine 0.84 0.60 - 1.10 mg/dL [facility] ([place]) Glucose 124 70 - 199 mg/dL [facility] ([place]) Comment: Interpretive Data Fasting glucose >/= 126 mg/dl is diagnostic for diabetes. ?? Fasting is defined as no caloric intake for at least 8 hours. Fasting glucose between 100 mg/dl to 125 mg/dl is diagnostic of prediabetes. In a patient with classic symptoms of hyperglycemia or hyperglycemic crisis, a random glucose >/= 200 mg/dl is diagnostic for diabetes. In the absence of unequivocal hyperglycemia, results should be confirmed by repeat testing. The classification and Diagnosis of Diabetes Diabetes Care 2022; 46: S19-S40. Current interpretive data was last revised 2022. Calcium 9.8 8.5 - 10.3 mg/dL [facility] ([place]) Bilirubin, total 0.3 0.1 - 1.2 mg/dL [facility] ([place]) Protein, pl 7.4 6.5 - 8.5 g/dL [facility] ([place]) Albumin 4.3 3.5 - 5.0 g/dL [facility] ([place]) Alk phos 68 40 - 130 Units/L [facility] ([place]) ALT 37 7 - 45 Units/L [facility] ([place]) AST 40 10 - 45 Units/L [facility] ([place]) Blood 07/14/2023 8:54 AM CDT 07/14/2023 11:02 AM CDT us Malini Cummins CONTROLS PROJECT ENGINEER LAB BLOOD ORDERABLES Final Resu lt [facility] ([place]) 1 [facility] Department [place] [address] * Albumin Creatinine Ratio, Urine (07/14/2023 8:54 AM CDT) Albumin Ur 20.2 mg/L Comment: Interpretive Data No reference range established. Current interpretive data was last revised 2018. Testing performed by: [address] [address] Creatinine Ur 437.5 mg/dL [facility] Comment: Interpretive Data No reference range established. Current interpretive data was last revised 2018. Testing performed by: [address] [address] Albumin Creatinine Ratio, Ur 5 1 - 29 mg/g [facility] ([place]) Comment:Testing performed by : [address] [address] Urine 07/14/2023 8:54 AM CDT 07/14/2023 3:58 PM CDT us Malini Cummins CONTROLS PROJECT ENGINEER LAB URINE ORDERABLES Final Resu lt ILDA ARGUELLES [place] 1 [facility] Department of Laboratories [place] [id number] * POCT hemoglobin A1c (07/14/2023 8:34 AM CDT) Hemoglobin A1C, POC 6.0 % Blood 07/14/2023 8:34 AM CDT Malini Cummins CONTROLS PROJECT ENGINEER POINT OF CARE TEST ORDERABLES F inal Result * POCT glucose (07/14/2023 8:33 AM CDT) Glucose Blood, POC 137 mg/dL Blood 07/14/2023 8:33 AM CDT Malini Cummins CONTROLS PROJECT ENGINEER POINT OF CARE TEST ORDERABLES F inal Result documented in this encounter Visit Diagnoses Diagnosis Type 2 diabetes mellitus without complication, without long-term current use of insulin ([facility]) ([facility])- Primary Tobacco use disorder freestyle elvia 2 continuous glucose monitoring device Class 1 obesity due to excess calories with serious comorbidity and body mass index (BMI) of 30.0 to 30.9 in adult Type 2 diabetes mellitus with hyperglycemia, with long-term current use of insulin ([facility]) documented in this encounter Discontinued Medications Medication Sig Discontinue Reason Start Date End Da te lamoTRIgine (LaMICtal) 25 mg tablet Take 1 tablet (25 mg total) by mouth 2 (two) times a day 07/14/2023 QUEtiapine (SEROquel) 100 mg tablet Take 1 tablet (100 mg total) by mouth nightly 07/14/2023 flash glucose scanning reader (FreeStyle Elvia 2 [place]) [facility] Use to monitor glucose levels, DX E11.65, Z79.4 Therapy completed 05/23/2022 07/14/2023 flash glucose sensor (FreeStyle Elvia 2 Sensor) kit Use to monitor glucose levels, Change sensor every 14 days. DX E11.65, Z79.4 Therapy completed 02/13/2023 07/14/2023 documented as of this encounter Historical Medications * This list may reflect changes made after this encounter. QUEtiapine (SEROquel) 200 mg tablet 06/23/2023 09/30/2023 lamoTRIgine (LaMICtal) 200 mg tablet TAKE 1 TABLET BY MOUTH EVERY DAY FOR 30 DAYS 06/03/2023 02/25/2024 added in this encounter Additional Health Concerns Infection Onset Date Last Indicated Resolved Time COVID: Recovered Comment:Added based on recent COVID infection. 04/20/2023 05/04/2023 07/19/2023 3:05 AM C DT documented as of this encounter Care Teams Front Desk Administrator Relationship Specialty Start Date End Date Jessica Navarro NP [address] [place] [address] PCP - General 08/23/20 Ophelia Ashraf MD [address] [facility] [address] [place] [address] Consulting Physician Endocrinology 04/15/23 documented as of this encounter
--- OUTSIDE RECORDS SUMMARY | 2024-04-14 18:31 | XMS_ITS | Encounter Summary ---
Author Organization [facility] Healthcare Address [address] [place] [address] Care Team Providers Care Victims Advocate Clerk/Specialist Name Role Phone Melanie, Jessica Pinto NP Primary Care Provider [phone] Ophelia Ashraf MD Unavailable [phone] Reason for Referral * MRI/CAT/PET Scan (Routine) - Pending Review Specialty Diagnoses / Procedures Referred By Contac t Referred To Contact Radiology Diagnoses Lumbar radiculopathy Procedures MRI Lumbar Spine WO Contrast Arnold Sharp MD PhD Phone: tel: fax: [address] [phone] Referral ID Status Reason Start Date Expiration Date V isits Requested Visits Authorized [id number] Pending Review 08/19/2023 09/17/2024 1 1 Reason for Visit * MRI/CAT/PET Scan (Routine) - Pending Review Specialty Diagnoses / Procedures Referred By Contac t Referred To Contact Radiology Diagnoses Lumbar radiculopathy Procedures MRI Lumbar Spine WO Contrast Arnold Sharp MD PhD Phone: tel:[phone] fax: [address] [address] Referral ID Status Reason Start Date Expiration Date V isits Requested Visits Authorized [id number] Pending Review 08/19/2023 09/17/2024 1 1 Encounter Details Date Type Department Care Team (Latest Contact Info) Description 08/27/2023 6:59 PM CDT - 08/27/2023 11:59 PM CDT Hospital Encounter [facility] [address] [place] [phone] Lumbar radiculopathy - Right Discharge Disposition: Discharge to home or self [...] 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 file Not on file documented as of this encounter Medications at Time of Discharge medroxyPROGESTERone (PROVERA) 10 mg tabletIndications:S econdary oligomenorrhea Take 1 tablet (10 mg total) by mouth daily for 10 days 10 tablet 4 letrozole (FEMARA) 2.5 mg tabletIndications:I nfertility associated with Anovulation Take 1 tablet (2.5 mg total) by mouth daily for 5 days 5 tablet 4 08/30/19 24 albuterol HFA (PROVENTIL HFA,VENTOLIN HFA,PROAIR HFA) 90 [...] by mouth daily 30 tablet 4 02/25/20 24 Dexcom G7 Sensor deviceIndications:T ype 2 diabetes mellitus without complication, without long-term current use of insulin ([facility]) ([facility]) 1 Device continuously . Change every 10 days. E11.9 10 each 3 4 02/25/[address] (CYMBALTA) 30 mg capsule Take 1 capsule every day by oral route. 02/25/20 24 fluconazole (DIFLUCAN) 150 mg tablet Take by mouth once 4 02/25/20 24 gabapentin (NEURONTIN) 300 mg capsule Take 1 [...] per day 15 mL 2 3 02/25/20 lamoTRIgine (LaMICtal) 200 mg tablet TAKE 1 TABLET BY MOUTH EVERY DAY FOR 30 DAYS 4 02/25/20 LANTUS 100 unit/mL (3 mL) pen for injection 20 Units daily 2 02/25/20 M-Anel Plus 27 mg iron- 1 mg tablet Take 1 tablet by mouth daily 3 02/25/20 metFORMIN (GLUCOPHAGE) 500 mg tablet TAKE 2 [...] for constipation 60 tablet 1 4 02/25/20 tiZANidine (ZANAFLEX) 4 mg tablet TAKE 1 TABLET BY MOUTH EVERY 6-8 HOURS NEEDED FOR MUSCLE SPASMS 4 07/10/20 24 TRUEplus Pen Needle 32 gauge x /32 needle Use 3 per day for insulin pen 100 each 5 3 02/25/20 24 documented as of this encounter Discharge Disposition [...] Procedure Name Priority Date/Time Associated Diagnosis Comments MRI LUMBAR SPINE WO CONTRAST Schedule Routine, Read Routine (OP Routine) 08/27/2023 7:53 PM CDT Lumbar radiculopathy - Right documented in this encounter Results * MRI Lumbar Spine [...] encounter Visit Diagnoses Diagnosis Lumbar radiculopathy - Right Thoracic or lumbosacral neuritis or radiculitis, unspecified documented in this encounter Care Teams Victims Advocate Clerk/Specialist Relationship Specialty Start Date End Date Navarro, Jessica Pinto NP [address] [place] [id number] PCP - General 08/23/20 Ophelia Ashraf MD 4 [facility] [address] [address] Consulting Physician Endocrinology 04/15/23 documented as of this encounter
--- OUTSIDE RECORDS SUMMARY | 2024-04-14 18:31 | XMS_ITS | Encounter Summary ---
Author Organization [facility] Healthcare Address [address] [place] [address] Care Team Providers Care Valve Liner Rubber Name Role Phone Melanie, Jessica Pinto NP Primary Care Provider + [phone] Ophelia Ashraf MD Unavailable [phone] Encounter Details Date Type Department Care Team (Late st Contact Info) Description 07/06/2023 Orders Only [address] [id number] David Reyes MD [address] 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 Not on file documented as of this encounter Plan of Treatment Scheduled Orders Name Type Priority Associated Diagnoses Orde r Schedule Progesterone Lab Routine PCOS (polycystic ovarian syndrome) Expected: 07/06/2023, Expires: 07/05/2024 Progesterone Lab Routine PCOS (polycystic ovarian syndrome) Expected: 07/06/2023, Expires: 07/05/2024 documented as of this encounter Visit Diagnoses Diagnosis PCOS (polycystic ovarian syndrome)- Primary Polycystic ovaries documented in this encounter Additional Health Concerns Infection Onset Date Last Indicated Resolved Time COVID: Recovered Comment:Added based on recent COVID infection. 04/20/2023 05/04/2023 07/19/2023 3:05 AM C DT documented as of this encounter Care Teams Valve Liner Rubber Relationship Specialty Start Date End Date Jessica Navarro NP [address] [place] [id number] PCP - General 08/23/20 Ophelia Ashraf MD [address] [facility] [address] [place] [address] [place] [id number] Consulting Physician Endocrinology 04/15/23 documented as of this encounter
--- OUTSIDE RECORDS SUMMARY | 2024-04-14 18:31 | XMS_ITS | Encounter Summary ---
Author Organization [facility] Healthcare Address [address] [place] [address] Care Team Providers Care Diet Aid Name Role Phone Melanie, Jessica Pinto NP Primary Care Provider + [phone] Ophelia Ashraf MD Unavailable Encounter Details Date Type Department Care Team (Late st Contact Info) Description 08/10/2023 Orders Only [address] [id number] Beronica Pichardo MD [address] [address] Oligomenorrhea, unspecified type (Primary Dx) Social History Tobacco Use Types [...] the money to buy more. 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
--- OUTSIDE RECORDS SUMMARY | 2024-04-14 18:31 | XMS_ITS | Encounter Summary ---
Author Organization [facility] Healthcare Address [address] [place] [address] Care Team Providers Care Upper Inspector Name Role Phone Melanie, Jessica Pinto NP Primary Care Provider + [phone] Ophelia Ashraf MD Unavailable [phone] Encounter Details Date Type Department Care Team (Late st Contact Info) Description 07/14/2023 9:00 AM CDT [address] Type 2 diabetes mellitus with hyperglycemia, with long-term current use of insulin ([facility]/HCC) ([facility]) Social History Tobacco Use Types Packs/Day Years [...] 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 All are within normal limits. Good job. Please let me know if you haveany questions or concerns. Thank you for trusting me with your care. Malini Cummins [employer]PERVISOR [employer] documented in this encounter Plan of Treatment Not on file documented as of this encounter Procedures Procedure Name Priority Date/Time Associated Diagnosis Comments EGFR Routine 07/14/2023 8:54 AM CDT Type 2 diabetes mellitus with hyperglycemia, with long-term current use of insulin ([facility]) ([facility]) THYROID FUNCTION CASCADE Routine 07/14/2023 8:54 AM CDT Type 2 diabetes mellitus with hyperglycemia, with long-term current use of insulin (CMS/[facility]) ([facility]) ALBUMIN CREATININE RATIO, URINE Routine 07/14/2023 8:54 AM CDT Type 2 diabetes mellitus with hyperglycemia, with long-term current use of insulin (CMS/HCC) ([facility]) LIPID PANEL Routine 07/14/2023 8:54 AM CDT Type 2 diabetes mellitus with hyperglycemia, with long-term current use of insulin (CMS/HCC) ([facility]) COMPREHENSIVE METABOLIC PANEL Routine 07/14/2023 8:54 AM CDT Type 2 diabetes mellitus with hyperglycemia, with long-term current use of insulin (CMS/HCC) ([facility]) documented in this encounter Results * eGFR (07/14/2023 8:54 AM CDT) eGFR [...] NP LAB BLOOD ORDERABLES Final Resu lt [facility] ([place]) [address] [facility] Department [place] [address] * Albumin Creatinine Ratio, Urine (07/14/2023 8:54 AM CDT) Albumin Ur 20.2 mg/L Comment: Interpretive Data No reference range established. Current interpretive data was last revised 2018. Testing performed by: [facility], [address] [place] [address]., [id number] Creatinine Ur 437.5 mg/dL [facility] ([place]) Comment: Interpretive Data No reference range established. Current interpretive data was last revised 2018. Testing performed by: [facility], [address] [place] [address]., [id number] Albumin Creatinine Ratio, Ur 5 1 - 29 mg/g [facility] ([place]) Comment:Testing performed by : [facility], [address] [place] [address]., [id number] Urine 07/14/2023 8:54 AM CDT 07/14/2023 3:58 PM CDT us Malini Cummins NP LAB URINE ORDERABLES Final Resu lt [facility] ([place]) 1 [facility] Department [place] [address] * Comprehensive metabolic panel (07/14/2023 8:54 AM CDT) Sodium 139 135 - 145 mmol/L Potassium, pl 4.0 3.3 - 4.9 mmol/L [facility] ([place]) Chloride 102 97 - 110 mmol/L [facility] ([place]) CO2 27 22 - 32 mmol/L [facility] ([place]) Anion gap 10 2 - 15 mmol/L [facility] ([place]) BUN 13 6 - 25 mg/dL [facility] ([place]) Creatinine 0.84 0.60 - 1.10 mg/dL [facility] ([place]) Glucose 124 70 - 199 mg/dL [facility] ([place]) Comment: Interpretive Data Fasting glucose [...] classification and Diagnosis of Diabetes Diabetes Care 202; 46: S19-S40. Current interpretive data was last [...] NP LAB BLOOD ORDERABLES Final Resu lt [facility] ([place]) 1 [facility] Department [place] [address] * (ABNORMAL) Lipid panel (07/14/2023 8:54 AM [...] revised on 2017. Triglycerides 149 <=149 mg/dL [facility] ([place]) Comment: Interpretive Data Ages < or [...] on 2017. HDL 38(L) >=40 mg/dL [facility]) Comment: Interpretive Data Ages < or = [...] 2017. LDL, calculated 99 <=129 mg/dL [facility]) Comment: Interpretive Data Ages < or = [...] on 2017. Non-HDL Cholesterol 129 mg/dL [facility]) Comment: Interpretive Data Ages < or = [...] LAB BLOOD ORDERABLES Final Resu lt [facility] ([place]) 1 [facility] Department [place] [address] * Thyroid Function [place] (07/14/2023 8:54 AM CDT) TSH 2.21 0.30 - 4.20 mcIUnit/mL Blood 07/14/2023 8:54 AM CDT 07/14/2023 11:02 AM CDT us Malini Cummins NP LAB BLOOD ORDERABLES Final Resu lt [facility] ([place]) 1 [facility] Department [place] [address] documented in this encounter Visit Diagnoses Diagnosis Type 2 diabetes mellitus with hyperglycemia, with long-term current use of insulin (HCC) documented in this encounter Additional Health Concerns Infection Onset Date Last Indicated Resolved Time COVID: Recovered Comment:Added based on recent COVID infection. 04/20/2023 05/04/2023 07/19/2023 3:05 AM C DT documented as of this encounter Care Teams Upper Inspector Relationship Specialty Start Date End Date Jessica Navarro NP [address] [place] [address] PCP - General 08/23/20 Ophelia Ashraf MD 4 [facility] [address] [place] [address] [place] [id number] Consulting Physician Endocrinology 04/15/23 documented as of this encounter
--- OUTSIDE RECORDS SUMMARY | 2024-04-14 18:31 | XMS_ITS | Encounter Summary ---
Author Organization [facility] Healthcare Address [address] [place] [address] Care Team Providers Care Bronzer Name Role Phone Melanie, Jessica Pinto NP Primary Care Provider [phone] Ophelia Ashraf MD Unavailable [phone] Reason for Referral * Consultation (Routine) - Pending Review Specialty Diagnoses / Procedures Referred By Contac t Referred To Contact Physical Therapy Diagnoses Chronic bilateral low back pain with right-sided sciatica Arnold Sharp MD PhD Phone: tel: fax: [facility] (All Locations) Referral ID Status Reason Start Date Expiration Date Visits Requested Visits Authorized Pending Review Evaluate and Treat 09/30/2023 10/29/2024 24 24 Question Answer PTRFR PT Evaluate and Treat Therapy options discussed with patient? Yes Location provided for therapy services is: Patient requested/Patient preferred Please select the performing region: [facility] (All Locations) [167] # of visits: 24 Comments Please evaluate and provide treatment (1: Therapeutic exercise, 2: posture corrections, 3:patterns during functional activities, and 4: conditioning activities) and home exercise program for chronic low back pain. * Diagnostic Imaging (Routine) - Closed Specialty Diagnoses / Procedures Referred By Contac t Referred To Contact Diagnoses Lumbar radiculopathy Procedures Imaging Lumbar/Caudal Epidural Steroid INJ (32417) Arnold Sharp MD PhD Phone: tel: fax: [address] [phone] Referral ID Status Reason Start Date Expiration Date Visits Re quested Visits Authorized [id number] Closed 09/30/2023 12/29/2023 1 1 Reason for Visit * Reason Comments Back Pain MID BACK ALL THE WAY TO HER TOES ON THE RT SIDE * Diagnostic Imaging (Routine) - Closed Specialty Diagnoses / Procedures Referred By Contac t Referred To Contact Diagnoses Lumbar radiculopathy Procedures Imaging Lumbar/Caudal Epidural Steroid INJ ([id number]) Arnold Sharp MD PhD Phone: tel:[phone] fax: [address] [phone] Referral ID Status Reason Start Date Expiration Date Visits Re quested Visits Authorized [id number] Closed 09/30/2023 12/29/2023 1 1 Encounter Details Date Type Department Care Team (Latest Contact Info) Description 09/30/2023 9:44 AM CDT - 09/30/2023 11:59 PM CDT Hospital Encounter [facility] [address] [facility] [address] [place] [address] Broderick Lucero MD [address] [facility] [phone] [place] [address] Arnold Sharp MD PhD [address] [place] [address] Lumbar radiculopathy (Primary Dx); Chronic bilateral low back pain with right-sided sciatica Discharge Disposition: Discharge to home or self care Social History Tobacco Use Types Packs/Day Years Used Date Smoking Tobacco: Every Day E-cigarettes Smokeless Tobacco: Never Tobacco Cessation:Ready to Q uit: No; Counseling Given: Yes Alcohol Use Standard Drinks/Week Comments Never 0 [...] Industry Job Start Date Job End Date [employer] Not on file N ot on file Not on file documented as of this encounter Last Filed Vital Signs Vital Sign Reading Time Taken Comments Blood Pressure 132/77 09/30/2023 11:16 AM CDT Pulse 76 09/30/2023 11:16 AM CDT Temperature 36.2 ??C (97.1 ??F) 09/30/2023 9:53 AM CD T Respiratory Rate 20 09/30/2023 11:16 AM CDT Oxygen Saturation 100% 09/30/2023 11:16 AM CDT Inhaled Oxygen Concentration - - Weight 81.7 kg (180 lb 1.6 oz) 09/30/2023 9:53 A M CDT Height 160 cm (5' 3 ) 09/30/2023 9:53 AM CDT Body Mass Index 31.9 09/30/2023 9:53 AM CDT documented in this encounter Discharge Instructions * Discharge Instructions* Berna Mckinnon RN - 09/30/2023 9:46 AM CDT [facility] PATIENT EDUCATION POST-PROCEDURE INFORMATION SHEET After this procedure you may have: Dizziness Numbness in extremities Weakness in extremities These symptoms generally wear off in 6-8 hours, but are almost always gone by the next morning. A small amount of bruising, bleeding, swelling at the injection site(s). It is recommended you apply ice packs for 20 minutes every 1-2 hours for the first 24 hours. After 24 hours, if you still have discomfort, you may use a heating pad. Do not sit or lie on top of heating pad. Do not leave ice or heat on for more than 20 minutes at a time. Stand up slowly from a sitting or lying position today to prevent feeling dizzy or lightheaded. Limit activity today, which includes no driving. You may resume your normal activity and driving the next day after your procedure. You may take a shower. No tub bath, swimming pool, hot tub, etc., for 24 hours. You have received two (2) medications in your injection today. The first is a numbing medicine. This medicine may give you quick pain relief that may wear off before tomorrow. The second medicine is a steroid which may take 2-7 days to start working. You may also have some extra soreness at the injection site. After the numbing medicine wears off, your pain may return until the steroid starts working. If you have any questions or problems, please call the Pain Management Center at . For emergencies after 4:00 p.m., you should call the hospital tomato pulper operator at and ask tospeak with the Pain Service doctor biomass production manager. PAIN MANAGEMENT CENTER ([facility]) DISCHARGE INSTRUCTIONS MEDICATIONS: [x] Continue your current home medications Start: [x] Notify your pharmacy for refill(s) 7 days before you are out of your medication. [] Opioid (Narcotic) Agreement signed and patient received copy. [] Side Effects of Opioid Medications given to patient PROCEDURE at today's visit: Right Lumbar Epidural Steroid Injection (L5-S1) DIET: [x] Resume normal diet [] See [facility] Post Discharge Procedure Information Sheet ACTIVITY: [] Resume normal activity [x] See [facility] Post Discharge Procedure Information Sheet REFERRALS: Physical Therapy [] [facility] ([phone]) [] GMI (Graded Motor Imagery) [] [facility] ([phone]) Option 1 [] GMI (Graded Motor Imagery) [] [facility] ([phone]) [] Other: Behavior Medicine [] Pain Psychologist, [facility] Please call to schedule appointment [phone] or [phone] Diagnostic Test(s): May get Radiographs performed in Radiation/X-Ray 6th floor, [address]. [] Please call to schedule MRI or CT scan at [phone] [] Please call to schedule EMG at [phone] EDUCATION provided on the following: [] Spinal Cord Stimulator Education and DVD. Vendor: FOLLOW UP APPOINTMENTS: [] Return as needed [] Follow up appointment: We will contact you the next day to obtain: [] An update on your condition [] Your Pain diary scores [] Procedure at your next visit : INSTRUCTIONS before your next procedure: [] See [facility] Pre-Procedure Information Sheet [] Do not eat or drink for six (6) hours before the time/date of the procedure. [] Inquire with your prescribing provider if ok to hold blood thinner for ( ) days before procedure. [] Blood work required 2 hours before procedure: [] Natural Gas Treating Unit Operator needed for next procedure [] Pre Procedure instructions will be sent through [employer] or by phone two working days prior to procedure. *Need help with [employer]? Call [phone]. Patient provided information and repeated back with understanding. If you need to reach us: For any questions about your procedure, please call the Pain Management Center [phone] (M-F) (8am-4pm) If you need urgent attention after 5 pm and weekends: Call the [facility] Quill Cleaning Machine Operator at [phone] and ask for the Pain Service doctor biomass production manager. documented in this encounter Medications at Time [...] by mouth daily 30 tablet 05/13/2023 4 Virtualmin G7 Sensor deviceIndication s:Type 2 diabetes mellitus without complication, without long-term current use of insulin (CMS/HCC) ([facility]) 1 Device continuously . Change every 10 [...] Date gabapentin (NEURONTIN) 300 mg capsule Take 2 capsules (600 mg total) by mouth 3 (three) times a day 180 capsule 11 09/30/2023 4 documented in this encounter Discharge Disposition Disposition Code Departure Means Destination Discharge to home or self care documented in this encounter Progress Notes * Arnold Sharp MD PhD - 09/30/2023 10:30 AM CDT Patient Name: Lilli Santos : 1995 Today's Date: 09/30/2023 PCP: Jessica Navarro ELECTROMAGNET CRANE OPERATOR Referring: Arnold Sharp MD P* Chief Complaint Patient presents with Back Pain MID BACK ALL THE WAY TO HER TOES ON THE RT SIDE HPI Lilli Santos is a 28 y.o. year old female referred by Arnold Sharp MD P* for consultation regarding evaluation and treatment recommendation [...] Amitriptyline (Elavil) [] Levetiracetam (Keppra) [] Hydrocodone/APAP ([place]) [] Desipramine (Norpramin) [] Valproate (Depakote) [] [...] interventional therapies with some degree of success: 09/30/2023: LESI Epidural injection around 2021 - 100% relief for 3-4 month She has history of following psychiatric disorder: anxiety, depression, Bi-polar disorder, and PTSD She has history of smoking: Yes. She is receiving disability compensation now: No. She is involved in a law suit because of pain or injury: No. She is in contact with a forensic pathologist because of pain or injury: No. Significant past medical history:T2D, PCOS, Tobacco use disorder on nicotine patch, MDD/LOIS/bipolar/PTSD, right carpal tunnel and dequervain'stensynovitis s/p release, ELLI, obesity, RA. Social Hx: work as [employer], requires heavy lifting Today Date: 09/30/2023 She returns to the [facility] for Her low back pain. Pain Score: 8 Pain Location: Back (Lumbar) Pain Orientation: Mid, Lower, Right Pain Descriptors: Aching, Shooting, Stabbing, Nagging, Numbness, Throbbing, Tender, Tiring (miserable) Pain Radiating Towards: rt side to toes Pain Frequency: Constant/continuous Effect of Pain on Daily Activities: limits The pain is described as throbbing, shooting, stabbing, aching, heavy, and tender. It radiates to right leg on the posterior thigh, lower leg . Her pain at its best-worse level is 6-10+/10, respectively. Pain right now is 8/10 on the numeric pain scale. Pain is worse during no specific time of the day. Pain is better during no specific time of the day. . Provocative factors include walking, lifting, standing, bending, sitting, turning, lying, cough, sneezing, and straining. Alleviating factors include heat, ice, rest, and medications. Her pain greatly interferes with ADL's. Patient has done physical therapy: Yes. It was helpful: No. Current medication: Patient reports some benefit without side effect. Pain Medications DULoxetine DR (CYMBALTA) 30 mg capsule Take 1 capsule every day by oral route. ibuprofen (ADVIL,MOTRIN) 800 mg tablet Take 1 tablet (800 mg total) by mouth every 8 (eight) hours as needed for pain lamoTRIgine (LaMICtal) 200 mg tablet TAKE 1 TABLET BY MOUTH EVERY DAY FOR 30 DAYS QUEtiapine (SEROquel) 400 mg tablet TAKE 1 TABLET BY MOUTH DAILY NEEDED FOR SLEEP tiZANidine (ZANAFLEX) 4 mg tablet TAKE 1 TABLET BY MOUTH EVERY 6-8 HOURS NEEDED FOR MUSCLE SPASMS gabapentin (NEURONTIN) 300 mg capsule Take 2 capsules (600 mg total) by mouth 3 (three) times a day Results L-spine MRI 08/19/23 L1-2: The disc is normal in configuration. [...] No high-grade neural foraminal or canal narrowing. L-spine MRI 02/04/21 L2-L3: Right paracentral/foraminal broad-based disc protrusion causing [...] Ankle swelling Anxiety Anxiety Asthma Bipolar disorder ([facility]) Depression Depression Diabetes mellitus (HCC) Diarrhea Fatigue [...] No Known Problems Father HOME MEDICATIONS : cariprazine (Vraylar) 3 mg capsule capsule Dexcom G7 Sensor device DULoxetine DR (CYMBALTA) 30 mg capsule fluconazole (DIFLUCAN) 150 mg tablet ibuprofen (ADVIL,MOTRIN) 800 mg tablet insulin lispro (HumaLOG) 100 unit/mL pen for injection lamoTRIgine (LaMICtal) 200 mg tablet LANTUS 100 unit/mL (3 mL) pen for injection M-Anel Plus 27 mg iron- 1 mg tablet metFORMIN (GLUCOPHAGE) 500 mg tablet nicotine 21-14-7 mg/24 hr patch, TD daily, sequential nicotine, polacrilex, 4 mg mini lozenge ondansetron (ZOFRAN) 4 mg tablet OneTouch Delica Plus Lancet 33 gauge [facility] OneTouch Ultra Test strip QUEtiapine (SEROquel) 400 mg tablet senna-docusate (PERICOLACE) 8.6-50 mg tiZANidine (ZANAFLEX) 4 mg tablet TRUEplus Pen Needle 32 gauge x 5/32 needle amoxicillin-clavulanate (AUGMENTIN) 875-125 mg per tablet gabapentin (NEURONTIN) 300 mg capsule HYDROcodone-acetaminophen (NORCO) 5-325 mg per tablet QUEtiapine (SEROquel) 200 mg tablet albuterol HFA (PROVENTIL HFA,VENTOLIN HFA,PROAIR HFA) 90 mcg/actuation inhaler ascorbic acid (VITAMIN C) 500 mg tablet,chewable cholecalciferol (Vitamin D3) 2000 unit tablet gabapentin (NEURONTIN) 300 mg capsule medroxyPROGESTERone (PROVERA) 10 mg tablet Review of Systems Review of Systems Musculoskeletal: Positive for arthralgias, back pain and myalgias. Physical Exam Vitals: 09/30/23 0953 09/30/23 1054 09/30/23 1103 09/30/23 1116 BP: 130/83 136/86 131/90 132/77 BP Location: Right arm Right arm Patient Position: Lying Lying Lying Pulse: 96 92 79 76 Resp: 12 20 21 20 Temp: 97.1 ??F (36.2 ??C) SpO2: 100% 100% 100% 100% Weight: 81.7 kg (180 lb 1.6 oz) Height: 160 cm (5' 3 ) Body mass index is 31.9 kg/m??. CONSTITUTIONAL: General appearance normal, nutrition normal, [...] touch: normal bilaterally Assessment 1. Lumbar radiculopathy 2. Chronic bilateral low back pain with right-sided sciatica MRI image evidence of right L3 nerve, bilateral L5 nerve, and right S1 nerve abutment with mild central canal stenosis. The above note documents my personal evaluation of this patient. In addition, I have reviewed and confirmed with the patient and nurse the supportive information documented in today's scanned PatientHealth Questionnaire and Office Note. Plan 1. Intervention: Given the signs and symptoms of lumbar radiculopathy, we will proceed with LESI injection today R/B/A discussed, including but not limited to bleeding, infection, and possible nerve injury/paralysis. Alternatives (risks) include: medication management (dependency), no intervention (increased pain). Patient understand risks/benefits/alternatives and agrees to proceed with injection. 2. Medications: a. Opioids: Opioids are not indicated at this current time. b. Adjuvants: We will increase the patient's gabapentin to a goal of 600 TID. 3. Imaging: No further imaging needed at this current time - we reviewed patient's L-spine MRI with the patient 4. Referral: Encourage Home Exercise Program - detailed discussion regarding the importance of consistent use of optimized therapeutic and conditioning exercise programs. and I will refer the patientto physical therapy once pain is somewhat manageable; this will give the patient the best chance ofcontinuing to do physical therapy and home exercise program in the future. Patient has been educated about the risks of smoking and the benefits of stopping: Smoking causes or exacerbates painful medical conditions. Smoking causes structural damage of othersystems including osteoporosis, spinal degenerative disc disease, impaired bone healing, and impaired wound healing. Smokers are as much as 2.7 times more likely to experience lower back pain than those who don't smoke. Smoking also contributes to the joint pain found in conditions like arthritis. Smoking increases pain sensitivity and perception. Studies have found that smoking causes people toperceive pain more acutely. Tobacco use appears to have some effect on the nervous system, increasing sensations and perceptions of pain. Smoking interferes with pain medication. Smokers require more medication to ease their pain, research has found. That goes for standard analgesics like aspirin as well as for narcotic painkillers; ittakes larger doses of both to reduce or manage pain in smokers. Patient has been advised to quit, and if that l fails, to discuss pharmacological options with their family doctor. Time spent is 5-10 minutes performing this education. 5. Follow-up: In 4-6 weeks for re-evaluation of the above regimen. Arnold Sharp MD PhD Clinical Fellow, Pain Management Department of Anesthesiology [facility] [place] 09/30/23 Cosigned by Broderick Lucero MD at 10/08/2023 11:35 AM CDT Associated attestation - Broderick Lucero MD - 10/08/2023 11:35 AM CDT I have seen and examined the patient. I agree with the findings and plan of care as documented in the resident/fellow's note and as discussed with the resident/fellow. documented in this encounter Miscellaneous Notes * Op Note - Arnold Sharp MD PhD - 09/30/2023 10:30 AM CDT Patient ID Patient Name: Lilli Santos : 1995 DOS: 09/30/2023 PCP: Jessica Navarro NP Assessment Encounter Diagnoses Name Primary? Lumbar radiculopathy Yes Chronic bilateral low back pain with right-sided sciatica Attending Physician Patrice Lucero. Fellow Physician Arnold Sharp M.D., Ph.D. Procedures NAME OF PROCEDURE: Lumbar Epidural Steroid Injection at right L5-S1, under Fluoroscopy. INDICATION FOR PROCEDURE: Lumbar radicular pain INFORMED CONSTENT: After reviewing the procedure with the patient, informed consent to proceed withthe injection was obtained. DESCRIPTION OF PROCEDURE:The patient was placed in the prone position, and fluoroscopy was used to identify the intervertebral interspace at L5-S1 level. The lumbar area was prepped with Chlorhexidine solution and draped with sterile drape (prep and drape materials from the epidural kit). Sterile technique was used throughout. At the needle entry point, the skin and subcutaneous tissues were infiltrated with 1% lidocaine. An 18-gauge Tuohy needle was advanced to the epidural space, using the loss of resistance technique to normal saline with a little air bubble. Omnipaque 300 X 0.5 ml. was injected with adequate spread within the epidural space. No paresthesias were encountered during needle placement. With the needle in the epidural space, aspiration was negative for blood or other fluid. 1ml of Methylprednisolone 80 mg, 1 ml of 1% lidocaine, and normal saline (total volume 3 ml.) wereinjected through the Tuohy needle. The injected local anesthetic and steroid resulted in dispersionof the previously injected contrast. The procedure was well tolerated, and there were no apparent complications. Dr. Lucero was present for, and participated in, the entire procedure. DISPOSITION: Patient was discharged home in stable condition. Arnold Sharp MD PhD Clinical Fellow, Pain Management Department of Anesthesiology [facility] 09/30/23 TEACHING ATTESTATION : I was present and directly participated in the entire procedure (including opening and closing). Cosigned by Broderick Lucero MD at 10/08/2023 11:36 AM CDT Associated attestation - Broderick Lucero MD - 10/08/2023 11:36 AM CDT I was present for the entire procedure. * Addendum Note - Broderick Lucero MD - 09/30/2023 10:30 AM CDTEncounter addended by: Broderick Lucero MD on: 10/08/2023 11:38 AM Actions taken: Level of Service modified, Cosign clinical note with attestation, Order Reconciliation Section accessed, Order list changed, Charge Capture section accepted documented in this encounter Plan of Treatment Scheduled Referrals Name Type Priority Associated Diagnoses Order Schedule Ambulatory referral order to Physical Therapy - Outpatient Referral Routine Chronic bilateral low back pain with right-sided sciatica Expected: 10/14/2023 (Approximate), Expires: 09/29/2024 documented as of this encounter Goals Goal [...] Procedure Name Priority Date/Time Associated Diagnosis Comments PAIN MGMT IMAGING LUMBAR/CAUDAL EPIDURAL STEROID INJ Schedule Routine, Read Routine (OP Routine) 09/30/2023 11:06 AM CDT Lumbar radiculopathy documented in this encounter Results * Imaging Lumbar/Caudal Epidural Steroid INJ (73772) (09/30/2023 11:06 AM CDT) Narrative [facility] - 09/30/2023 11:07 AM CDT The images from this study are not interpreted by Radiology. ??Please refer to the physician's procedure / OR operative note. Arnold Sharp MD PhD IMG PAIN MGMT PROCEDURE S Final Result [facility] documented in this encounter Visit Diagnoses Diagnosis Lumbar radiculopathy- Primary Thoracic or lumbosacral neuritis or radiculitis, unspecified Chronic bilateral low back pain with right-sided sciatica documented in this encounter Administered Medications Inactive Administered Medications - up to 3 most recent administrations Medication Order MAR Action Action Date Dose Rate Site iohexoL (OMNIPAQUE) 300 mg iodine/mL injection solution As needed, Starting on Thu09/30/23 at 1057, Intra-Op Given 09/30/2023 10:57 AM CDT 0.5 mL lidocaine (PF) (XYLOCAINE) 10 mg/mL (1 %) preservative free injection As needed, Starting on Thu09/30/23 at 1100, Intra-Op Given 09/30/2023 11:00 AM CDT 4 mL lidocaine-EPINEPHrine (XYLOCAINE with EPI) 1.5 %-1:200,000 preservative free injection As needed, Starting on Thu09/30/23 at 1100, Intra-Op, Indications: Administration of Local AnesthesiaIndications:Administrat ion of Local Anesthesia Given 09/30/2023 11:00 AM CDT 1 mL methylPREDNISolone acetate (DEPO-medrol) injection As needed, Starting on Thu09/30/23 at 1057, Intra-Op Given 09/30/2023 10:57 AM CDT 80 mg sodium chloride 0.9% solution As needed, Starting on Thu09/30/23 at 1101, Intra-Op Given 09/30/2023 11:01 AM CDT 2 mL documented in this encounter Discontinued Medications Medication Sig Discontinue Reason Start Date End Da te amoxicillin-clavulanate (AUGMENTIN) 875-125 mg per tablet TAKE 1 TABLET BY MOUTH EVERY 12 HOURS FOR 3 DAYS Therapy completed 08/13/2023 09/30/2023 QUEtiapine (SEROquel) 200 mg tablet 06/23/2023 09/30/2023 HYDROcodone-acetaminophe n (NORCO) 5-325 mg per tabletIndications:Pain Take 1 tablet by mouth every 6 (six) hours as needed for pain 05/13/2023 09/30/2023 gabapentin (NEURONTIN) 300 mg capsule Take 1 capsule (300 mg total) by mouth 3 (three) times a day 08/19/2023 09/30/2023 documented as of this encounter Historical Medications * This list may reflect changes made after this encounter. tiZANidine (ZANAFLEX) 4 mg tablet TAKE 1 TABLET BY MOUTH EVERY 6-8 HOURS NEEDED FOR MUSCLE SPASMS 08/21/2023 11/04/2023 cariprazine (Vraylar) 3 mg capsule capsule 1 capsule (3 mg total) daily 02/25/2024 added in this encounter Orders Discharge Count Last Ordered Date First Orde red Date DISCHARGE PATIENT 1 10/08/2023 documented in this encounter Care Teams Bronzer Relationship Specialty Start Date End Date Jessica Navarro NP [address] [facility] [address] [place] [address] [place] [address] PCP - General 08/23/20 Ophelia Ashraf MD [address] [facility] [address] [place] [address] [place] [address] Consulting Physician Endocrinology 04/15/23 documented as of this encounter
--- OUTSIDE RECORDS SUMMARY | 2024-04-14 18:31 | XMS_ITS | Encounter Summary ---
Author Organization [facility] Healthcare Address [address] [place] [address] Care Team Providers Care Compounding Assistant Name Role Phone Jessica Navarro NP Primary Care Provider + [phone] Ophelia Ashraf MD Unavailable [phone] Encounter Details Date Type Department Care Team (Late st Contact Info) Description 07/29/2023 Plan of Care Documentation [facility] Occupational Therapy [address] [place] [address] Social History Tobacco Use Types Packs/Day Years [...] Industry Job Start Date Job End Date [employer] [facility] [facility] Not on file N ot on file Not on file documented as of this encounter Plan of Treatment Not on file documented as of this encounter Visit Diagnoses Not on filedocumented in this encounter Care Teams Compounding Assistant Relationship Specialty Start Date End Date Jessica Navarro NP [address] [place] [address] PCP - General 08/23/20 Ophelia Ashraf MD 4 [facility] [address] [place] [address] Consulting Physician Endocrinology 04/15/23 documented as of this encounter
--- OUTSIDE RECORDS SUMMARY | 2024-04-14 18:31 | XMS_ITS | Encounter Summary ---
Author Organization [facility] Healthcare Address [address] [place] [address] Care Team Providers Care Document Preparer Microfilming Name Role Phone Jessica Navarro NP Primary Care Provider + [phone] Ophelia Ashraf MD Unavailable [phone] Reason for Visit * Reason Comments OT Initial Eval * Consultation (Routine) - Pending Review Specialty Diagnoses / Procedures Referred By Jonas reeves Referred To Contact Occupational Therapy Diagnoses S/P carpal tunnel release Topher Dong PA [address] [place] [address] DR [address] [place] [address] Phone: tel: fax: Topher Dong PA [address] [place] [address] DR EL[address]ETH [facility] [place] [address] Phone: tel: fax: Referral ID Status Reason Start Date Expiration Date Visits Requested Visits Authorized [id number] Pending Review Evaluate and Treat 07/03/2023 08/01/2024 24 9 Encounter Details Date Type Department Care Team (Late st Contact Info) Description 07/29/2023 7:00 AM CDT Therapy [facility] Occupational Therapy [address] [place] [address] Garima Novak OT Carpal tunnel syndrome of right wrist (Primary Dx); S/P carpal tunnel release; Tendinitis, de Quervain's; Right wrist pain Social History Tobacco Use Types Packs/Day Years [...] 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 female Referring Provider: Topher Dong PA [address] [facility] [address] [place] [address] Diagnosis: Right Carpal tunnel and Dequervain's tenosynovitis Past Medical History: Diagnosis Date Anxiety Asthma Bipolar disorder (HCC) Depression Diabetes mellitus (HCC) GERD (gastroesophageal reflux disease) Rheumatoid arthritis (HCC) Thyroid disease Mena Past Surgical History: Procedure Laterality Date ANKLE SURGERY Left ARM SURGERY Right 2 separate surgeries to remove extra tissue under the right armpit BREAST SURGERY breast reduction FL FLUORO GUIDED LUMBAR PUNCTURE Right 03/01/2021 FL FLUORO GUIDED LUMBAR PUNCTURE Right 04/08/2021 THYROID SURGERY Right WISDOM TOOTH EXTRACTION Subjective: History of present condition: Patient reports a multiple year history of paresthesias, weakness andpain in right hand. She reports that she had surgery in April and got fairly good relief of her paresthesias, but continues to have significant pain in right wrist and hand. 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 This is very repetitive. She was issued a wrist cock up orthosis by her doctor but it is too bulky for use at work. Date of surgery: 05/13/23 Surgery details: Carpal tunnel release and Dequervain's release Next MD Appointment: 08/21/23 Current living situation: Lives with significant other Do you feel safe in your home environment?: [x] Yes [] No Prior level of ADL/IADL: Independent Current functional level: ADL Status [] Independent [x] Independent but with increased time or pain [] Requires assistance [] Dependent Details: IADL Status [] Independent [] Independent but with increased time or pain [x] Requires assistance [] Dependent Details: limited to lifting 5 pounds or less. Needs help with all IADL's due to pain. Leisure activities [] Able to participate in leisure activities [] Unable to participate in leisure activities Details: Patient reports no hobbies. Sleep [x] Reports adequate sleep to support daily routines [] Reports inadequate sleep to support daily routines Details: Patient takes medication for sleep. 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 [x] Yes [] No Medication using: ibuprofen QUICK Dash: 07/29/2023 QUICK DASH Open a tight or new jar 5 - Unable Do heavy chief technician x ray (e.g., wash pedersen, floors) 4 - Severe Difficulty Carry a shopping bag or briefcase 3 - Moderate Difficulty Wash your back 5 - Unable Use a knife to cut food 5 - Unable Recreational activities in which you take some force or impact through your arm, shoulder, or hand (e.g., golf, hammering, tennis, etc.) 4 - Severe Difficulty During the past week, to what extent has your arm, shoulder, or hand problem interfered with your normal social activities with family, friends, neighbours or groups? 2 - Slightly During the past week, were you limited in your work or other regular daily activities as a result of your arm, shoulder or hand problem? 4 - Very Limited Arm, shoulder or hand pain 4 - Severe Tingling (pins and needles) in your arm, shoulder or hand 3 - Moderate During the past week, how much difficulty have you had sleeping because of the pain in your arm, shoulder or hand? 2 - Mild Difficulty Quick DASH Disability/Symptom Score: 68.18 Objective: Observation: Surgical incisions at radial and volar wrist are well healed. No muscular wasting noted Palpation: Patient reports severe pain and hypersensitivity with palpation to surgical regions. AROM Forearm and Wrist Right Left supination/pronation WFL WFL extension/flexion 62/51 75/70 RD/UD 02/12 18 Hand Strength (pounds) Right Left Office Support 16 50 Lateral pinch 5 13 3 pt pinch 4 12 Strength Forearm and Wrist Right Left Supination 4/5 5/5 Pronation 4/5 5/5 Extension 3+/5 5/5 Flexion 3+/5 5/5 Sensation: 10/10 test- right thumb and IF 7/10, all else 10/10 Treatment Provided: Patient was educated on anatomy related to carpal tunnel. Patient was educated on need for scar massage and desensitization to right surgical regions. MHP to right hand and wrist x 10 min pre tx Scar massage with dycem to right volar and radial scars x 2 min each - issued handout for home. Dycem was left behind in clinic. Will issue on Thursday. Instructed patient in desensitization activities for home and issued handout. Issued printed handout for tendon gliding and distal MNG- patient performed 3 reps of each in clinic to ensure proper technique. She will perform 10 reps of tendon gliding and 3 reps of distal MNG 3xa day at home. 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 These deficits are limiting her with ADL, IADL and work activities. She will benefit from skilled OT to address these areas and maximize functional latter-day of right UE. She did well withinitial evaluation and HEP and will return on Thursday for continued care. She may benefit from a light, more streamlined custom orthosis that will accommodate her hand use at work as well. Pt demonstrated independence/verbalized understanding in: [x] HEP [] Don/doff orthosis [x] All tx listed above [x] Patient education provided this session Impairment list: [] Coordination [] Edema [] Endurance/activity tolerance [] Dexterity [] Flexibility [] Gross motoruse [] Muscle tone [x] Pain [x] Range of motion [x] Scar tissue [x] Sensation [x] Sensory/motor [] Skin integrity [x] Strength Other: Functional Limitations: [x] ADLs [x] IADLs [] Community activities [] Communication [] Education [x] Home management [] Leisure activities [] Play [] Safety [] Sports [x] Work Other: Environmental Barriers: [] Home [] Work [] Community [x] None Details: Barriers to Therapy: [] Vision [] Hearing [] Cognition [] Transportation [] Financial [x] None Details: Intervention Approach: [] Health promotion [x] Remediation [] Wellness [] Adaptation [] Prevention Prognosis: [] Excellent [x] Good [] Fair [] Poor ST) 07/29/23 Patient to improve AROM of right wrist ext/flex to 70/60 degrees by 3 weeks. 2) 07/29/23 Patient to improve AROM right wrist RD/UD to 15/25 degrees by 3 weeks. 3) 07/29/23 Patient to improve right lat pinch strength to 7 pounds by 3 weeks. 4) 07/29/23 Patient to improve right 3 pt pinch strength to 6 pounds by 3 weeks. 5) 07/29/23 Patient to report improved pain levels in right wrist and hand with self care activities of no more than 5/10 by 3 weeks. 6) 07/29/23 Patient to improve quick dash score to 50 or better by 3 weeks. 7) 07/29/23 Fabrication of wrist splint completed by 1 week. LT) 07/29/23 Patient to improve right wrist flex/ext strength to 4/5 by 6 weeks. 2) 07/29/23 Patient to improve right sup/pro strength to 4+/5 by 6 weeks. 3) 07/29/23 Patient to improve lat pinch strength to 8 pounds by 6 weeks. 4) 07/29/23 Patient to improve 3pt pinch strength to 8 pounds by 6 weeks. 5) 07/29/23 Patient to improve quick dash score to 30 or better by 6 weeks. Plan: Frequency/Duration: 2 x a week up to 24 visits ([facility] after evaluation) Plan Details: Patient education, modalities, scar mobilization, desensitization, AROM, PROM, strengthening, nerve and tendon gliding, orthotic fabrication, ADL/IADL simulation activities. Start time: 07:05am End time: 07:50am Garima Novak OTR/L, CHT documented in this encounter Plan of Treatment Not on file documented as of this encounter Visit Diagnoses Diagnosis Carpal tunnel syndrome of right wrist- Primary S/P carpal tunnel release Other postprocedural status Tendinitis, de Quervain's Right wrist pain Pain in joint, forearm documented in this encounter Orders Outpatient Referral Count Last Ordered Date st Ordered Date AMB REFERRAL ORDER TO OCCUPATIONAL THERAPY 1 07/29/2023 documented in this encounter Care Teams Document Preparer Microfilming Relationship Specialty Start Date End Date Jessica Navarro NP [address] [place] [address] PCP - General 08/23/20 Ophelia Ashraf MD [address] [facility] [address] [place] [address] Consulting Physician Endocrinology 04/15/23 documented as of this encounter
--- OUTSIDE RECORDS SUMMARY | 2024-04-14 18:31 | XMS_ITS | Encounter Summary ---
Author Organization [facility] Healthcare Address [address] [place] [address] Care Team Providers Care Control Panel Builder Name Role Phone Melanie, Jessica Pinto NP Primary Care Provider + [phone] Ophelia Ashraf MD Unavailable [phone] Reason for Visit * Reason Onset Date Comments PMC Preprocedure 09/28/2023 Encounter Details Date Type Department Care Team (Late st Contact Info) Description 09/28/2023 Telephone [facility] [address] [facility] [address] [place], [place] [id number] Broderick Lucero MD [address] [facility] [facility] [id number] [place], [place] [id number] PMC Preprocedure Social History Tobacco Use Types Packs/Day Years [...] 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 [address] [place] [address] Consulting Physician Endocrinology 04/15/23 documented as of this encounter
--- OUTSIDE RECORDS SUMMARY | 2024-04-14 18:31 | XMS_ITS | Encounter Summary ---
Author Organization [facility] Healthcare Address [address] [place] [address] Care Team Providers Care Documentation Lead Name Role Phone Navarro, Jessica Pinto NP Primary Care Provider + [phone] Ophelia Ashraf MD Unavailable [phone] Reason for Referral * Diagnostic Imaging (Routine) - Closed Specialty Diagnoses / Procedures Referred By Jonas reeves Referred To Contact Diagnoses Pain of upper arm, unspecified laterality Unspecified lump in axillary tail of the right breast Procedures Diagnostic Mammogram Bilateral W Anil Diagnostic Mammogram Bilateral W Kostas Jean MD [address] [place] [address] Phone: tel: fax: [address] [phone] Referral ID Status Reason Start Date Expiration Date Visits Re quested Visits Authorized [id number] Closed 08/21/2023 09/19/2024 1 1 Reason for Visit * Diagnostic Imaging (Routine) - Closed Specialty Diagnoses / Procedures Referred By Jonas reeves Referred To Contact Diagnoses Pain of upper arm, unspecified laterality Unspecified lump in axillary tail of the right breast Procedures Diagnostic Mammogram Bilateral W Anil Diagnostic Mammogram Bilateral W Kostas Jean MD [address] [place] [address] Phone: tel: fax: [address] [phone] Referral ID Status Reason Start Date Expiration Date Visits Re quested Visits Authorized [id number] Closed 08/21/2023 09/19/2024 1 1 Encounter Details Date Type Department Care Team (Latest Contact Info) Description 10/05/2023 9:25 AM CDT - 10/05/2023 11:59 PM CDT Hospital Encounter 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 N ot on file Not on file documented as of this encounter Last Filed Vital Signs Vital Sign Reading Time Taken Comments Blood Pressure - - Pulse - - Temperature - - Respiratory Rate - - Oxygen Saturation - - Inhaled Oxygen Concentration - - Weight - - Height 162.6 cm (5' 4 ) 10/05/2023 9:32 AM CDT Body Mass Index - - documented in this encounter Medications at Time [...] by mouth daily 30 tablet 05/13/2023 4 FastDue G7 Sensor deviceIndication s:Type 2 diabetes mellitus without complication, without long-term current use of insulin ([facility]) ([facility]) 1 Device continuously . Change [...] Procedure Name Priority Date/Time Associated Diagnosis Comments DIAGNOSTIC MAMMOGRAM BILATERAL W ANIL Schedule Routine, Read Routine (OP Routine) 10/05/2023 9:47 AM CDT Pain of upper arm, unspecified laterality Unspecified lump in axillary tail of the right breast documented in this encounter Results * Diagnostic Mammogram Bilateral W Anil (10/05/2023 9:47 AM CDT) Anatomical Region Laterality Modality Breast Bilateral Mammography 10/05/2023 11:0 6 AM CDT Impressions 10/05/2023 [...] AM CDT EXAMINATION: DIAGNOSTIC MAMMOGRAM BILATERAL W ANIL, US BREAST RIGHT LIMITED ORDERING HEALTHCARE PROVIDER: [...] breast documented in this encounter Care Teams Documentation Lead Relationship Specialty Start Date End Date Jessica Navarro NP [address] [place] [address] PCP - General 08/23/20 Ophelia Ashraf MD 4 [facility] [address] [place] [address] Consulting Physician Endocrinology 04/15/23 documented as of this encounter
--- OUTSIDE RECORDS SUMMARY | 2024-04-14 18:31 | XMS_ITS | Encounter Summary ---
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 Pt states that she was instructed with she saw Dr. Reyes in 05/26/23at she was to take medication he first 5 days of her cycle and then have labs drawn on day 21. Ptstates that she was out of town and unable to get labs drawn. Pt inquired if she needs to repeat taking medication and getting labs drawn. Please advise. * Telephone Encounter - Collette Zuniga - 08/25/2023 9:32 AM CDT Patient called and ask if she can get a call back regarding her medication please and thanks. documented in this encounter Plan of Treatment [...] on filedocumented in this encounter Care Teams Borematic Machine Operator Relationship Specialty Start Date End Date Jessica Navarro NP [address] [place] [address] PCP - General 08/23/20 Ophelia Ashraf MD [address] [facility] [address] [place] [address] Consulting Physician Endocrinology 04/15/23 documented as of this encounter
--- OUTSIDE RECORDS SUMMARY | 2024-04-14 18:31 | XMS_ITS | Encounter Summary ---
Author Organization [facility] Healthcare Address [address] [place] [address] Care Team Providers Care Classified Advertising Clerk Name Role Phone Melanie, Jessica Pinto NP Primary Care Provider [phone] Ophelia Ashraf MD Unavailable [phone] Reason for Referral * Consultation (Routine) - Closed Specialty Diagnoses / Procedures Referred By Contact Referred To Contact Reproductive Endocrinology and Infertility Diagnoses Infertility counseling David Reyes MD [address] [facility] [address] [place] [address] Phone: tel: fax: [facility] (All Locations) Referral ID Status Reason Start Date Expiration Date V isits Requested Visits Authorized [id number] Closed Specialty Services Required 11/18/2023 12/17/2024 1 1 Question Answer Please select the performing region: [facility] (All Locations) [167] # of visits: 1 Comments 28 year old with PCOS, several years trying to conceive unassisted. No positive test with three cycles of letrozole. 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[employer] [employer] Not on file N ot on file Not on file documented as of this encounter Plan of Treatment Scheduled Referrals Name Type Priority Associated Diagnoses Order Schedule Ambulatory referral to Infertility Outpatient Referral Routine Infertility counseling Expected: 12/02/2023 (Approximate), Expires: 11/17/2024 documented as of this encounter Goals Goal [...] as of this encounter Visit Diagnoses Diagnosis Infertility counseling- Primary documented in this encounter Care Teams Classified Advertising Clerk Relationship Specialty Start Date End Date Melanie, Jessica Pinto NP [address] [place] [address] PCP - General 08/23/20 Ophelia Ashraf MD 4 [facility] [address] [place] [address] Consulting Physician Endocrinology 04/15/23 documented as of this encounter
--- OUTSIDE RECORDS SUMMARY | 2024-04-14 18:31 | XMS_ITS | Encounter Summary ---
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 Discussed plan for taking with patient, patient desires a trial. David Reyes MD PGY-2, OBGYN UI DESIGNER documented in this encounter Plan of Treatment Not on file documented as of this encounter Visit Diagnoses Diagnosis Infertility counseling- Primary documented in this encounter Additional Health Concerns Infection Onset Date Last Indicated Resolved Time COVID: Recovered Comment:Added based on recent COVID infection. 04/20/2023 05/04/2023 07/19/2023 3:05 AM C DT documented as of this encounter Care Teams Quality Process Engineer Relationship Specialty Start Date End Date Jessica Navarro NP [address] [place] [address] PCP - General 08/23/20 Ophelia Ashraf MD 4 [facility] [address] [place] [address] Consulting Physician Endocrinology 04/15/23 documented as of this encounter
--- OUTSIDE RECORDS SUMMARY | 2024-04-14 18:32 | XMS_ITS | Encounter Summary ---
Author Organization [facility] Address [address] [facility] [address] [place] [address] Care Team Providers Care Margin Trimmer Name Role Phone Jessica Navarro NP Primary Care Provider [phone] Reason for Visit * Reason Comments Diabetes Type 2 Encounter Details Date Type Department Care Team (Late st Contact Info) Description 06/02/2022 1:30 PM OFFICE MOVER Office Visit [facility] Medical [facility] of [address] [place] [address] Ophelia Ashraf MD [address] [place] [address] [address] [place], [place] [id number] Type 2 diabetes mellitus with hyperglycemia, with long-term current use of insulin ([facility]) (HCC) (Primary Dx) Social History Tobacco Use Types Packs/Day Years Used Date Smoking Tobacco: Every Day Cigarettes Smokeless Tobacco: Never Tobacco Cessation:Ready to Q uit: Not Asked; Counseling Given: Not Answered Alcohol Use Standard Drinks/Week Comments Never 0 (1 standard drink = 0.6 oz pur e alcohol) AUDIT-C Answer Date Recorded Q1: How often do you have a drink containing alc ohol? 2-4 times a month 08/29/2020 Average Number of Drinks Not on file 021 Frequency of Binge Drinking Not on file 08/2020 Comments No Sex and Gender Information Value Date Recorded Sex Assigned at Not on file Legal Sex Female 11:31 AM CDT Gender Identity Not on file Sexual Orientation Not on file Occupation Industry Job Start Date Job End Date UNEMPLOYED Not on file Not on file Not on file documented as of this encounter Last Filed Vital Signs Vital Sign Reading Time Taken Comments Blood Pressure 120/64 06/02/2022 1:31 PM OFFICE MOVER Pulse - - Temperature - - Respiratory Rate - - Oxygen Saturation - - Inhaled Oxygen Concentration - - Weight 82.5 kg (181 lb 12.8 oz) 06/02/2022 1:31 PM OFFICE MOVER Height 162.6 cm (5' 4 ) 06/02/2022 1:31 PM OFFICE MOVER Body Mass Index 31.21 06/02/2022 1:31 PM OFFICE MOVER documented in this encounter Progress Notes * Ophelia Ashraf MD - 06/02/2022 1:30 PM CST Subjective/Objective Patient ID: Lilli Santos is a 27 y.o. female. Chief Complaint Diabetes Type 2 Patient is for follow up on dibetes Patient is on Lantus insulin 20 units Qhs, Humalog insulin 4 units with breakfast and 8 units with dinner, plus Metformin 1000 mg bid. Diet : eats 2 meal /day- scheduled to see dietitian next month She monitors sugars using CGM [employer], data downloaded 05/20-06/02/22. Time in target 68% . Hypoglycemia0%. Average sugars 166. Diabetes This is a chronic problem. The problem has been gradually improving. Associated symptoms include fatigue. Pertinent negatives include no abdominal pain, coughing, nausea, numbness, rash or vomiting. Review of Systems Constitutional: Positive for fatigue. Negative for unexpected weight change. Eyes: Negative for visual disturbance. Respiratory: Negative for cough and wheezing. Cardiovascular: Negative for palpitations and leg swelling. Gastrointestinal: Negative for abdominal pain, constipation, diarrhea, nausea and vomiting. Endocrine: Negative for polydipsia and polyuria. No hypoglycemia Genitourinary: Negative for frequency. Skin: Negative for rash and wound. Neurological: Negative for light-headedness and numbness. Physical Exam Vitals reviewed. Constitutional: General: She is not in acute distress. Appearance: She is well-developed. Eyes: Conjunctiva/sclera: Conjunctivae normal. Neck: Thyroid: No thyromegaly. Cardiovascular: Rate and Rhythm: Normal rate and regular rhythm. Pulses: Dorsalis pedis pulses are 2+ on the right side and 2+ on the left side. Posterior tibial pulses are 2+ on the right side and 2+ on the left side. Heart sounds: Normal heart sounds. Pulmonary: Breath sounds: Normal breath sounds. Abdominal: General: Bowel sounds are normal. Palpations: Abdomen is soft. Musculoskeletal: Cervical back: Normal range of motion and neck supple. Right foot: No deformity. Left foot: No deformity. Feet: Right Foot: Monofilament exam: normal. Skin Integrity: Negative for ulcer. Left Foot: Monofilament exam: normal. Skin Integrity: Negative for ulcer. Neurological: Mental Status: She is alert. Assessment/Plan Diagnoses and all orders for this visit: Type 2 diabetes mellitus with hyperglycemia, with long-term current use of insulin (CMS/HCC) ([facility]) (E11.65, Z79.4) (Primary) Assessment & Plan: Diagnosed in 2019 Started insulin in 2021 Control : above target, but improved since pre-meal Humalog was added. A1c 14% on 05/12/22 Kidney: GFR 122 on 01/23/22 Plan: Refer patient to dietitian. Patient can use Humalog insulin with each meal tid if eating 3 meal 4 units Qam, 4 units with lunchand 8 units Qpm Continue Lantus insulin 20 units Qhs Continue Metformin 1000 mg bid. Monitor sugars 4 x per day - use CGM Hypoglycemia symptoms and treatment reviewed with patient. Call if having low sugars. Ophthalmology exam on regular basis. Orders: - POCT glucose CE MOVER documented in this encounter Miscellaneous Notes * Assessment & Plan Note - Ophelia Ashraf MD - 06/02/2022 1:43 PM OFFICE MOVER Associated Problem(s): Type 2 diabetes mellitus without complication, without long-term current useof insulin (CMS/HCC) ([facility]) Diagnosed in 2019 Started insulin in 2021 Control : above target, but improved since pre-meal Humalog was added. A1c 14% on 05/12/22 Kidney: GFR 122 on 01/23/22 Plan: Refer patient to dietitian. Patient can use Humalog insulin with each meal tid if eating 3 meal 4 units Qam, 4 units with lunchand 8 units Qpm Continue Lantus insulin 20 units Qhs Continue Metformin 1000 mg bid. Monitor sugars 4 x per day - use CGM Hypoglycemia symptoms and treatment reviewed with patient. Call if having low sugars. Ophthalmology exam on regular basis. CE MOVER CE MOVER documented in this encounter Plan of Treatment Not on file documented as of this encounter Procedures Procedure Name Priority Date/Time Associated Diagnosis Comments POCT GLUCOSE Routine 06/02/2022 1:49 PM OFFICE MOVER Type 2 diabetes mellitus with hyperglycemia, with long-term current use of insulin ([facility]) ([facility]) documented in this encounter Results * POCT glucose (06/02/2022 1:49 PM OFFICE MOVER) Glucose Blood, POC 112 mg/dL Blood 06/02/2022 1:49 PM OFFICE MOVER Ophelia Ashraf MD POINT OF CARE TEST ORDERABLES Final Result documented in this encounter Visit Diagnoses Diagnosis Type 2 diabetes mellitus with hyperglycemia, with long-term current use of insulin ([facility])- Primary documented in this encounter Discontinued Medications Medication Sig Discontinue Reason Start Date End Da te hydrOXYzine (ATARAX) 25 mg tablet Take 25 mg by mouth 3 (three) times a day as needed Therapy completed 11/20/2020 06/02/2022 documented as of this encounter Care Teams Margin Trimmer Relationship Specialty Start Date End Date Jessica Navarro NP [address] [place] [address] PCP - General 08/23/20 documented as of this encounter
--- OUTSIDE RECORDS SUMMARY | 2024-04-14 18:32 | XMS_ITS | Encounter Summary ---
Author Organization [facility] Address [address] [address] Care Team Providers Care Shipping Agent Name Role Phone Jessica Navarro NP Primary Care Provider Reason for Visit * Reason Comments Pre-op Visit Encounter Details Date Type Department Care Team (Late st Contact Info) Description 08/13/2022 1:15 PM CDT Office Visit [facility] Orthopedic and Sports Medicine [address] [place] [phone] Yefri Burgess MD [address] [place] [address] [address] [place] [id number] Tenosynovitis, de Quervain (Primary Dx); Carpal tunnel syndrome of right wrist Social History Tobacco Use Types Packs/Day Years Used Date Smoking Tobacco: Every Day Cigarettes Smokeless Tobacco: Never Alcohol Use Standard Drinks/Week [...] Industry Job Start Date Job End Date [employer] Not on file N ot on file Not on file documented as of this encounter Last Filed Vital Signs Vital Sign Reading Time Taken Comments Blood Pressure 119/80 08/13/2022 1:25 PM CDT Pulse 77 08/13/2022 1:25 PM CDT Temperature - - Respiratory Rate - - Oxygen Saturation - - Inhaled Oxygen Concentration - - Weight 93.5 kg (206 lb 1.6 oz) 08/13/2022 1:25 P M CDT Height 162.6 cm (5' 4 ) 08/13/2022 1:25 PM CDT Body Mass Index 35.38 08/13/2022 1:25 PM CDT documented in this encounter Progress Notes * Yefri Burgess MD - 08/13/2022 1:15 PM CDT Images from the original note were not included. NEW PATIENT VISIT Subjective CHIEF COMPLAINT She had concerns including Pre-op Visit of the Right Hand. HISTORY OF PRESENT ILLNESS Right wrist pain for the past 2 years gotten worse the past 3-6 months problem started movement pain is sharp dull achy in severe. No move makes it better everything makes it worse her pain is continuous she is had physical therapy anti-inflammatories braces she is here for surgical consultation. [employer] completed by using M*Modal Fluency Direct speaking software, therefore, transcriptionvariances may occur. Pain Assessment Pain Assessment: 0-10 Pain Score: [...] lispro, metformin, tizanidine, albuterol hfa, aripiprazole, benzonatate,freestyle elvia 2 reader, freestyle elvia 2 sensor, fluconazole, gabapentin, lantus, nicotine, nitrofurantoin [...] noted below. Thumb extension: 4/5 Thumb abduction:4/5 Business Management Consultant: 4/5 Neurovascular The patient has normal vascular [...] the flexor retinaculum. Clinical correlation is recommended. Assessment/Plan Lilli was seen today for pre-op [...] Quervain release carpal tunnel release under general. She will get a new PCP and [id number] below 7.5 Prior to surgical date JINA Martinez MD documented in this encounter Plan of Treatment Not on file documented as of this encounter Visit Diagnoses Diagnosis Tenosynovitis, de Quervain- Primary Radial styloid tenosynovitis Carpal tunnel syndrome of right wrist documented in this encounter Care Teams Shipping Agent Relationship Specialty Start Date End Date Jessica Navarro NP [address] [place] [address] PCP - General 08/23/20 documented as of this encounter
--- OUTSIDE RECORDS SUMMARY | 2024-04-14 18:32 | XMS_ITS | Encounter Summary ---
Author Organization [facility] Healthcare Address [address] [place] [address] Care Team Providers Care Collator Operator Name Role Phone Jessica Navarro NP Primary Care Provider Reason for Visit * Reason Comments Vomiting Encounter Details Date Type Department Care Team (Late st Contact Info) Description 12/28/2022 8:17 PM CDT - 12/28/2022 10:40 PM CDT Emergency [facility] Emergency Department [address] [place] [address] Lashon Starr MD [address] [place] [address] Nausea and vomiting, unspecified vomiting type (Primary Dx) Discharge Disposition: Discharge to home or self care Social History Tobacco Use Types Packs/Day Years Used Date Smoking Tobacco: Every Day E-cigarettes Smokeless Tobacco: Never Alcohol Use Standard Drinks/Week Comments Never 0 (1 standard drink = 0.6 oz pur e alcohol) AUDIT-C Answer Date Recorded Q1: How often do you have a drink containing alc ohol? Monthly or less 11/24/2022 Q2: How many drinks containi ng alcohol do you have on a typical day when you are drinking? 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[employer] Not on file N ot on file Not on file documented as of this encounter Last Filed Vital Signs Vital Sign Reading Time Taken Comments Blood Pressure 140/93 12/28/2022 8:13 PM CDT Pulse 97 12/28/2022 8:13 PM CDT Temperature 36.7 ??C (98.1 ??F) 12/28/2022 8:13 PM CD T Respiratory Rate 17 12/28/2022 8:13 PM CDT Oxygen Saturation 100% 12/28/2022 8:13 PM CDT Inhaled Oxygen Concentration - - Weight 85.9 kg (189 lb 6 oz) 12/28/2022 9:36 PM CDT Height 160 cm (5' 3 ) 12/28/2022 8:13 PM CDT Body Mass Index 33.55 12/28/2022 8:13 PM CDT documented in this encounter Discharge Instructions * Attachments The following attachments cannot be sent through Care Everywhere. * Vomiting (Adult) (Somali) * Abnormal (Dysfunctional) Uterine Bleeding (AfterCare(R) Instructions(ER/ED)) (Somali) documented in this encounter Medications at Time of Discharge albuterol HFA (PROVENTIL HFA,VENTOLIN HFA,PROAIR HFA) 90 mcg/actuation inhaler Inhale 2 puffs every 4 (four) hours as needed for wheezing 1 Inhaler 05/14/2020 4 ARIPiprazole (ABILIFY) 10 mg tablet Take 1 tablet (10 mg total) by mouth nightly at bedtime. 07/01/2022 3 ARIPiprazole (ABILIFY) 5 mg tablet Take 2 tablets (10 mg total) by mouth every morning 02/19/2021 3 dulaglutide (TRULICITY) 0.75 mg/0.5 mL pen injector Inject 0.5 mL (0.75 mg total) under the skin every 7 days 2 mL 3 09/08/2022 3 escitalopram (LEXAPRO) 20 mg tablet TAKE 1 TABLET BY MOUTH IN THE MORNING WITH FOOD 03/11/2022 3 flash glucose scanning reader ([employer] Viviane 2 [place]) [facility] Use to monitor glucose levels, DX E11.65, Z79.4 1 each 05/23/2022 4 flash glucose sensor (FreeStyle Viviane 2 Sensor) kit Use to monitor glucose levels DX E11.65, Z79.4 2 kit 11 05/23/2022 3 ibuprofen (ADVIL,MOTRIN) 800 mg tabletIndications:Pa in Take 1 tablet (800 mg total) by mouth every 8 (eight) hours as needed for pain 21 tablet 09/09/2021 4 insulin lispro (HumaLOG) 100 unit/mL pen for injection Use as directed before meals, max 20 units per day 15 mL 2 05/12/2022 4 LANTUS 100 unit/mL (3 mL) pen for injection 20 Units daily 03/27/2022 4 metFORMIN (GLUCOPHAGE) 500 mg tablet TAKE 2 TABLETS BY MOUTH TWICE DAILY 360 tablet 1 10/24/2022 4 metoclopramide (REGLAN) 10 mg tablet Take 1 tablet (10 mg total) by mouth every 8 (eight) hours as needed (Nausea/vomiti ng) 20 tablet 12/28/2022 4 ondansetron ODT (ZOFRAN-ODT) 4 mg disintegrating tablet Take 1-2 tablets (4-8 mg total) by mouth every 8 (eight) hours as needed for nausea or vomiting 40 tablet 12/28/2022 4 OneTouch Delica Plus Lancet [facility]27[facility]202201/27 4 OneTouch Ultra Test strip Use to check sugars 3 x per day 100 strip 5 05/12/2022 4 tiZANidine (ZANAFLEX) 4 mg tablet Take 1 tablet (4 mg total) by mouth every 6 (six) hours as needed 01/21/2021 4 TRUEplus Pen Needle 32 gauge x needle Use 3 per day for insulin pen 100 each 5 05/12/2022 4 documented as of this encounter Ordered Prescriptions Prescription Sig Dispense Quantity Refills Last Filled Start Date End Date metoclopramide (REGLAN) 10 mg tablet Take 1 tablet (10 mg total) by mouth every 8 (eight) hours as needed (Nausea/vomiti ng) 20 tablet 12/28/2022 4 ondansetron ODT (ZOFRAN-ODT) 4 mg disintegrating tablet Take 1-2 tablets (4-8 mg total) by mouth every 8 (eight) hours as needed for nausea or vomiting 40 tablet 12/28/2022 4 documented in this encounter Discharge Disposition Disposition Code Departure Means Destination Comment s Discharge to home or self care documented in this encounter ED Notes * Lashon Starr MD - 12/28/2022 9:29 PM CDT Triage Chief Complaint: Chief Complaint Patient presents with Vomiting Portions of the record may have been created with voice recognition software. Occasional wrong-word or '[id number]' substitutions may have occurred due to the inherent limitations of voice recognition software. Read the chart carefully and recognize, using context, where substitutions have occurred. H&P: Lilli Santos is a 27 y.o. female with h/o diabetes presents for nausea vomiting for a month. Shereports she is had weight loss. She is having normal bowel movements with her last 1 being today. She is also been having abnormal vaginal bleeding and has an appointment with her Ob Gyne next week. She did not discuss the nausea vomiting with her insole rounder who she recently saw and she has not told her primary care provider about it. No hematemesis. No fever. She came in today after having symptoms for a month because her insisted she be evaluated, as what she told me. No dysuria frequency urgency. Past medical/past surgical/meds: Past Medical History: Diagnosis Date Anxiety Asthma Depression Diabetes mellitus (HCC) GERD (gastroesophageal reflux disease) Rheumatoid arthritis (HCC) Thyroid disease Past Surgical History: Procedure Laterality Date ANKLE SURGERY Left BREAST SURGERY breast reduction FL FLUORO GUIDED LUMBAR PUNCTURE Right 03/01/2021 FL FLUORO GUIDED LUMBAR PUNCTURE Right 04/08/2021 THYROID SURGERY Right HOME MEDICATIONS : albuterol HFA (PROVENTIL HFA,VENTOLIN HFA,PROAIR HFA) 90 mcg/actuation inhaler ARIPiprazole (ABILIFY) 10 mg tablet ARIPiprazole (ABILIFY) 5 mg tablet dulaglutide (TRULICITY) 0.75 mg/0.5 mL pen injector escitalopram (LEXAPRO) 20 mg tablet flash glucose scanning reader (FreeStyle Viviane 2 [place]) [facility] flash glucose sensor (FreeStyle Viviane 2 Sensor) kit ibuprofen (ADVIL,MOTRIN) 800 mg tablet insulin lispro (HumaLOG) 100 unit/mL pen for injection LANTUS 100 unit/mL (3 mL) pen for injection metFORMIN (GLUCOPHAGE) 500 mg tablet metoclopramide (REGLAN) 10 mg tablet ondansetron ODT (ZOFRAN-ODT) 4 mg disintegrating tablet OneTouch Delica Plus Lancet 33 gauge [facility] OneTouch Ultra Test strip tiZANidine (ZANAFLEX) 4 mg tablet TRUEplus Pen Needle 32 gauge x /32 needle Nursing Notes Reviewed. Physical Exam: ED Triage Vitals Temp Pulse Resp BP SpO2 12/28/22201212/28/22201212/28/22201212/28/22201212/28/222012 36.7 ??C (98.1 ??F) 97 17 140/93 100 % Temp src Heart Rate Source Patient Position BP Location FiO2 (%) -- -- -- -- -- Height Height Method Weight Weight Method 12/28/222012 -- 12/28/22201212/28/22 2136 1.6 m (5' 3 ) 83 kg (183 lb) Standing scale GENERAL APPEARANCE: Awake and alert. No acute distress. HEAD: Atraumatic. EYES: Sclera anicteric. EOMI. ENT: Tolerates saliva. Moist mucous membranes NECK: Supple. Trachea midline. LUNGS: Respirations unlabored. ABDOMEN: Soft. Non-tender. No guarding or rebound. No Keller sign. No pain at McBurney's point. EXTREMITIES: No acute deformities. SKIN: Warm and dry. NEUROLOGICAL: No gross facial drooping. Moves all 4 extremities spontaneously. Normal speech and mental status. No ataxia noted. PSYCHIATRIC: Normal mood. I have reviewed and interpreted all of the currently available lab results from this visit (if applicable): Labs Reviewed URINALYSIS AND REFLEX TO MICROSCOPIC AND CULTURE - Abnormal Result Value Color, ur Red (*) Clarity, ur Turbid (*) Specific gravity, ur 1.019 pH, urine 7.5 Protein, ur ql 2+ (*) Glucose, ur ql Negative Ketones, ur Negative Bilirubin, ur Negative Blood, ur 3+ (*) Urobilinogen, ur 2.0 (*) Nitrite, ur Negative Leukocyte esterase, ur 2+ (*) UA reflex comment Reflex to microscopic UA will be performed. Narrative: Urine pH is affected by diet, medications, systemic acid-base disturbances, and renal tubular function. pH may affect urinary stone formation. For example, urine pH below 6.0 may help reduce the tendency for calcium phosphate stones and pH greater than 6.0 may reduce the tendency for uric acid stone formation. Source: [facility] [place].Last revised 05-07-2017 CBC WITH AUTO DIFFERENTIAL - Abnormal WBC 10.8 (*) Hgb 15.3 Hct 42.9 Plt 279 MPV 11.9 RBC 4.82 MCV 89.0 MCH 31.7 MCHC 35.7 RDW CV 11.9 RDW SD 38.5 NRBC abs 0.00 COMPREHENSIVE METABOLIC PANEL - Abnormal Sodium 140 Potassium, pl 3.5 Chloride 101 CO2 27 Anion gap 12 BUN 6 Creatinine 0.96 Glucose 193 Calcium 10.2 Bilirubin, total 0.9 Protein, pl 8.5 Albumin 5.3 (*) Alk phos 89 ALT 123 (*) AST 75 (*) DIFFERENTIAL AUTO - Abnormal Neutrophil abs 5.5 Imm gran abs 0.0 Lymphocyte abs 4.3 (*) Monocyte abs 0.6 Eosinophil abs 0.3 Basophil abs 0.1 Neutrophil pct 51.5 Imm gran pct 0.2 Lymphocyte pct 39.5 Monocyte pct 5.8 Eosinophil pct 2.4 Basophil pct 0.6 URINALYSIS, MICROSCOPIC ONLY - Abnormal WBC, ur 21-50 (*) RBC, ur >50 (*) Epithelial cells, squamous, ur 11-20 (*) Mucous, ur Present (*) Culture Reflex Comment Reflex to urine culture will be performed. URINE CULTURE LIPASE Lipase 19 HCG, URINE, QUALITATIVE HCG, ur Negative EGFR eGFR 82 Radiographs (if obtained): Report Reviewed: No orders to display EKG (if obtained): (All EKGs are interpreted by myself in the absence of a rotoprinter) ED course/MDM: External chart review: (details typically documented under ED workup or in chart/outside record review above in my note, if obtained) History obtained by: (Typically documented in the HPI section, sometimes in ED course when obtainedfrom additional historians but not at the initial time of patient presentation.) Discussion of management: (typically conversations time stamped and documented in ED course), Independent interpretation studies: (typically documented in ED course and please note that labs and Radiology reads obtained in the ED and listed above have been reviewed) Vitals: 12/28/22201212/28/222135 BP: 140/93 Pulse: 97 Resp: 17 Temp: 36.7 ??C (98.1 ??F) SpO2: 100% Weight: 83 kg (183 lb) 85.9 kg (189 lb 6 oz) Height: 160 cm (5' 3 ) ED Course as of 12/28/22 2250 Time: 12/28 2126 Value: RBC, ur(!): >50 Comment: Currently menstruating By: Lashon Starr MD Time: 12/29 2127 Value: Epithelial cells, squamous, ur(!): 11-20 Comment: Contaminated and nondiagnostic By: Lashon Starr MD Time: 12/29 2127 Value: Nitrite, ur: Negative Comment: Low suspicion for actual UTI By: Lashon Starr MD Time: 12/29 2127 Value: AST(!): 75 Comment: (Reviewed) By: Casner, Lashon C., MD Time: 12/29 2127 Value: ALT(!): 123 Comment: Patient has history of abnormal LFTs when check previously 11 months ago By: Lashon Starr MD Time: 12/29 2127 Value: Bilirubin, total: 0.9 Comment: Patient has no right upper quadrant pain on exam By: Lashon Starr MD Time: 12/29 2127 Value: WBC(!): 10.8 Comment: Nonspecific and nondiagnostic By: Lashon Starr MD Time: 12/28 2204 Value: Hgb: 15.3 Comment: No anemia, reassuring By: Lashon Starr MD MDM: 27-year-old presenting with nausea vomiting for month as well as abnormal vaginal bleeding Differential diagnosis: The patient is not in DKA, she could have delayed gastric emptying or diabetic gastroparesis, seems like it has been happening every day and not really cyclical in nature making hyperemesis associated with marijuana use less likely. She is tolerating p.o. here. Possible GERD. She said a GI cocktail and Zofran made her feel better. Right now she is no abdominal pain on examthere is no pain at McBurney's point no Keller sign. Doubt acute cholecystitis or acute appendicitis or other surgical emergency. UA not consistent with UTI. She already has an appointment with Ob Gyne for abnormal or dysfunctional uterine bleeding. No significant anemia. No indication for further ED workup at this time. Prescribed antiemetics for home. Discharge instructions: The patient and I have discussed results, diagnosis and or diagnostic uncertainty and the need for follow-up. We have discussed follow- up instructions and return precautions, to which the patient verbalized understanding and agreement. Clinical Impression: 1. Nausea and vomiting, unspecified vomiting type Disposition: Discharge (Please note that portions of this note may have been completed with a voice recognition program. Iron Setter errors occur. Please contact me for any clarification.) Lashon Starr MD 12/28/22 0910 * Sebastian Kelley RN - 12/28/2022 8:11 PM CDT Patient states she has been having intense vomiting for the past month. Patient states she has somestomach pain and a sore throat from the vomiting. Patient states she has lost 30 lbs this month. Patient also states she has had 3 periods this month. Patient states every time she eats she vomits 20-30 minutes later documented in this encounter Plan of Treatment Not on file documented as of this encounter Procedures Procedure Name Priority Date/Time Associated Diagnosis Comments URINALYSIS AND REFLEX TO MICROSCOPIC AND CULTURE STAT 12/28/2022 8:32 PM CDT HCG, URINE, QUALITATIVE STAT 12/28/2022 8:32 PM CDT URINALYSIS, MICROSCOPIC ONLY STAT 12/28/2022 8:32 PM CDT URINE CULTURE STAT 12/28/2022 8:32 PM CDT EGFR STAT 12/28/2022 8:26 PM CDT DIFFERENTIAL AUTO STAT 12/28/2022 8:2 6 PM CDT CBC WITH AUTO DIFFERENTIAL STAT 12/28/2022 8:26 PM CDT LIPASE STAT 12/28/2022 8:26 PM CDT COMPREHENSIVE METABOLIC PANEL STAT 12/28/2022 8:26 PM CDT documented in this encounter Results * Urine culture Urine (12/28/2022 8:32 PM CDT) Report Final Report: Less than 100,000 colonies/mL (clinically insignificant growth based on current clinical standards) ILDA TAYLOR) Comment:Testing performed by : [facility], [address] [place]., [address] Organism (CLINICALLY INSIGNIFICANT GROWTH ILDA ARGUELLES ([place]) Urine 12/28/2022 8:32 PM CDT 12/29/2022 1:05 AM CDT Narrative ILDA ARGUELLES ([place]) - 12/30/2022 7:05 AM CDT Urine culture reflexed based upon urinalysis results. Testing performed by [facility] ([phone]) Evan Westbrook MD LAB MICROBIOLOGY - GENERAL O RDERABLES Final Result ILDA ARGUELLES ([place]) 1 [facility] Department [place] [address] * (ABNORMAL) Urinalysis, microscopic only (12/28/2022 8:32 PM CDT) WBC, ur 21-50(A) 0 - 5 /HPF ILDA ARGUELLES ([place]) RBC, ur >50(A) 0 - 2 /HPF ILDA ARGUELLES ([place]) Epithelial cells, squamous, ur 11-20(A) 0 - 5 /HPF ILDA ARGUELLES ([place]) Comment:Suggestive of contam ination. Consider recollection by clean catch. Mucous, ur Present(A) ILDA ESCOBAR ([place]) Culture Reflex Comment Reflex to urine culture will be performed. [facility] ([place]) Urine 12/28/2022 8:32 PM CDT 12/28/2022 8:34 PM CDT us Evan Westbrook MD LAB URINE ORDERABLES Final R esult Performing Organization Address [facility]/ZIP Co de Phone Number ILDA [facility] ([place]) 1 [facility] [place] [address] * hCG, urine, qualitative (12/28/2022 8:32 PM CDT) HCG, ur Negative Negative [facility] ([place]) Urine 12/28/2022 8:32 PM CDT 12/28/2022 8:41 PM CDT us Lashon Starr MD LAB URINE ORDERABLES Fin al Result Performing Organization Address [facility] de Phone Number ILDA [facility] ([place]) 1 [facility] [place] [address] * (ABNORMAL) Urinalysis reflex to microscopic and culture Urine (12/28/2022 8:32 PM CDT) Color, ur Red(A) Yellow [facility] ([place]) Clarity, ur Turbid(A) Clear [facility] A ([place]) Specific gravity, ur 1.019 1.003 - 1.030 [facility] ([place]) pH, urine 7.5 [facility] ([place]) Protein, ur ql 2+(A) Negative [facility] ([place]) Glucose, ur ql Negative Negative [facility] ([place]) Ketones, ur Negative Negative [facility] A ([place]) Bilirubin, ur Negative Negative [facility] ([place]) Blood, ur 3+(A) Negative [facility] ([place]) Urobilinogen, ur 2.0(A) <2.0 mg/dL [facility] ([place]) Nitrite, ur Negative Negative [facility] A ([place]) Leukocyte esterase, ur 2+(A) Negative [facility] ([place]) UA reflex comment Reflex to microscopic UA will be performed. ILDA ARGUELLES ([place]) Urine 12/28/2022 8:32 PM CDT 12/28/2022 8:34 PM CDT Narrative ILDA ARGUELLES ([place]) - 12/28/2022 8:54 PM CDT ?? Urine pH is affected by diet, medications, systemic acid-base disturbances, and renal tubular function. ??pH may affect urinary stone formation. ??For example, urine pH below 6.0 may help reduce the tendency for calcium phosphate stones and pH greater than 6.0 may reduce the tendency for uric acid stone formation. Source: [employer]. Last revised 05-07-2017 us Lashon Starr MD LAB MICROBIOLOGY - GENER AL ORDERABLES Final Result ILDA ARGUELLES ([place]) 1 [facility] Department [place] [address] * eGFR (12/28/2022 8:26 PM CDT) eGFR 82 mL/min/1. 73 m2 ILDA ARGUELLES ([place]) Comment: Interpretive Data Reference Interval Normal ?>/= [...] interpretive data was last reviewed 2021. Blood 12/28/2022 8:26 PM CDT 12/28/2022 8:28 PM CDT Evan Westbrook MD LAB BLOOD ORDERABLES Final R esult [facility] 1 [facility] Department [place] [address] * (ABNORMAL) Differential, auto (12/28/2022 8:26 PM CDT) Neutrophil abs 5.5 1.7 - 6.5 K/cumm [facility] ([place]) Imm gran abs 0.0 0.0 - 0.1 K/cumm [facility] ([place]) Lymphocyte abs 4.3(H) 0.8 - 3.3 K/cumm [facility] ([place]) Monocyte abs 0.6 0.2 - 0.8 K/cumm [facility] ([place]) Eosinophil abs 0.3 0.0 - 0.5 K/cumm [facility] ([place]) Basophil abs 0.1 0.0 - 0.1 K/cumm [facility] ([place]) Neutrophil pct 51.5 % [facility] ([place]) Comment: Interpretive Data Percent cell count reference ranges are not reported, since discordance with absolute values may lead to misinterpretation of CBC data. Current Interpretive Data was last revised on 2017. Imm gran pct 0.2 % [facility] ([place]) Comment: Interpretive Data Percent cell count reference ranges are not reported, since discordance with absolute values may lead to misinterpretation of CBC data. Current Interpretive Data was last revised on 2017. Lymphocyte pct 39.5 % [facility] ([place]) Comment: Interpretive Data Percent cell count reference ranges are not reported, since discordance with absolute values may lead to misinterpretation of CBC data. Current Interpretive Data was last revised on 2017. Monocyte pct 5.8 % [facility] ([place]) Comment: Interpretive Data Percent cell count reference ranges are not reported, since discordance with absolute values may lead to misinterpretation of CBC data. Current Interpretive Data was last revised on 2017. Eosinophil pct 2.4 % [facility] ([place]) Comment: Interpretive Data Percent cell count reference ranges are not reported, since discordance with absolute values may lead to misinterpretation of CBC data. Current Interpretive Data was last revised on 2017. Basophil pct 0.6 % [facility] ([place]) Comment: Interpretive Data Percent cell count reference ranges are not reported, since discordance with absolute values may lead to misinterpretation of CBC data. Current Interpretive Data was last revised on 2017. Blood 12/28/2022 8:26 PM CDT 12/28/2022 8:28 PM CDT Lashon Starr MD LAB BLOOD ORDERABLES Fin al Result ILDA ARGUELLES ([facility]) 1 [facility] [place] [address] * Lipase (12/28/2022 8:26 PM CDT) Lipase 19 10 - 99 Units/L ILDA ARGUELLES ([place]) Blood (Blood, Venous) 12/28/2022 8:26 PM CDT 12/28/2022 8:28 PM CDT Lashon Starr MD LAB BLOOD ORDERABLES Fin al Result ILDA ARGUELLES ([facility]) 1 [facility] [place] [address] * (ABNORMAL) Comprehensive metabolic panel (12/28/2022 8:26 PM CDT) Sodium 140 135 - 145 mmol/L ILDA ARGUELLES ([place]) Potassium, pl 3.5 3.3 - 4.9 mmol/L [facility] ([place]) Chloride 101 97 - 110 mmol/L [facility] ([place]) CO2 27 22 - 32 mmol/L [facility] ([place]) Anion gap 12 2 - 15 mmol/L [facility] ([place]) BUN 6 6 - 25 mg/dL [facility] ([place]) Creatinine 0.96 0.60 - 1.10 mg/dL [facility] ([place]) Glucose 193 70 - 199 mg/dL [facility] ([place]) [...] classification and Diagnosis of Diabetes Diabetes Care 2021; 46: S19-S40. Current interpretive data was last revised 2022. Calcium 10.2 8.5 - 10.3 mg/dL [facility] ([place]) Bilirubin, total 0.9 0.1 - 1.2 mg/dL [facility] ([place]) Protein, pl 8.5 6.5 - 8.5 g/dL [facility] ([place]) Albumin 5.3(H) 3.5 - 5.0 g/dL [facility] ([place]) Alk phos 89 40 - 130 Units/L [facility] ([place]) ALT 123(H) 7 - 45 Units/L [facility] ([place]) AST 75(H) 10 - 45 Units/L [facility] ([place]) Comment:Slightly Hemolyzed S pecimen Blood 12/28/2022 8:26 PM CDT 12/28/2022 8:28 PM CDT us Lashon Starr MD LAB BLOOD ORDERABLES Fin al Result [facility] ([place]) 1 [facility] Department [place] [address] * (ABNORMAL) CBC with auto differential (12/28/2022 8:26 PM CDT) WBC 10.8(H) 3.8 - 9.9 K/cumm [facility] ([place]) Hgb 15.3 11.9 - 15.5 g/dL [facility] ([place]) Hct 42.9 35.6 - 45.5 % [facility] ([place]) Plt 279 150 - 400 K/cumm [facility] ([place]) MPV 11.9 9.1 - 12.3 fL [facility] ([place]) RBC 4.82 3.90 - 5.20 M/cumm [facility] ([place]) MCV 89.0 81.3 - 96.4 fL [facility] ([place]) MCH 31.7 27.1 - 33.3 pg [facility] ([place]) MCHC 35.7 32.3 - 35.7 g/dL [facility] ([place]) RDW CV 11.9 11.1 - 14.9 % [facility] ([place]) RDW SD 38.5 35.7 - 48.1 fL [facility] NRBC abs 0.00 0.00 - 0.01 K/cumm [facility] Blood (Blood, Venous) 12/28/2022 8:26 PM CDT 12/28/2022 8:28 PM CDT us Lashon Starr MD LAB BLOOD ORDERABLES Fin al Result [facility] ([place]) 1 [facility] Department [place] [address] documented in this encounter Visit Diagnoses Diagnosis Nausea and vomiting, unspecified vomiting type- Primary documented in this encounter Administered Medications Inactive Administered Medications - up to 3 most recent administrations Medication Order MAR Action Action Date Dose Rate Site al & mag hydroxide simethicone-lidocaine oral suspension mixture 40 mL, oral, Once, On 12/28/22 at 2128, For 1 dose Given 12/28/2022 9:32 PM CDT 40 mL ondansetron (ZOFRAN) injection 8 mg 8 mg, intravenous, Administer over 2 Minutes, Once, On 12/28/22 at 2128, For 1 dose, Indications: Nausea, VomitingIndications:Nausea,Vomiting Given 12/28/2022 9:32 PM CDT 8 mg documented in this encounter Active and Recently Administered Medications Times are shown in CDT. Scheduled Medication Order 12/26/2022 12/27/2022 12/28/2022 al & mag hydroxide simethicone-lidocaine oral suspension mixture (COMPLETED) 40 mL, oral, Once, On 12/28/22 at 2128, For 1 dose 2131 (Given - Provid er: Marcela Morales, SHERIDAN) ondansetron (ZOFRAN) injection 8 mg (COMPLETED) 8 mg, intravenous, Administer over 2 Minutes, Once, On 12/28/22 at 8, For 1 dose, Indications: Nausea, Vomiting 2131 (Given - Provid er: Marcela Morales, SHERIDAN) documented in this encounter Orders Nursing Count Last Ordered Date First Orde red Date MISCELLANEOUS NURSING CARE ORDER (SPECIFY) 1 12/28/2022 WEIGH PATIENT 1 12/28/2022 IV Count Last Ordered Date First Orde red Date SALINE LOCK IV 1 12/28/2022 documented in this encounter Care Teams Collator Operator Relationship Specialty Start Date End Date Melanie, Jessica Pinto NP [address] [place] [address] PCP - General 08/23/20 documented as of this encounter
--- OUTSIDE RECORDS SUMMARY | 2024-04-14 18:32 | XMS_ITS | Encounter Summary ---
Author Organization [facility] Healthcare Address [address] [place] [address] Care Team Providers Care Heel Splitter Name Role Phone Jessica Navarro NP Primary Care Provider Encounter Details Date Type Department Care Team (Late st Contact Info) Description 09/02/2022 11:00 AM CDT [address] Type 2 diabetes mellitus with hyperglycemia, with long-term current use of insulin (CMS/HCC) ([facility]) Social History Tobacco Use Types Packs/Day [...] Industry Job Start Date Job End Date [employer] Not on file N ot on file Not on file documented as of this encounter Plan of Treatment Not on file documented as of this encounter Procedures Procedure Name Priority Date/Time Associated Diagnosis Comments EGFR Routine 09/02/2022 11:00 AM CDT Type 2 diabetes mellitus with hyperglycemia, with long-term current use of insulin (CMS/HCC) ([facility]) ALBUMIN CREATININE RATIO, URINE Routine 09/02/2022 11:00 AM CDT Type 2 diabetes mellitus with hyperglycemia, with long-term current use of insulin (CMS/HCC) (HCC) C-PEPTIDE Routine 09/02/2022 11:00 AM CDT Type 2 diabetes mellitus with hyperglycemia, with long-term current use of insulin (CMS/HCC) (HCC) TSH Routine 09/02/2022 11:00 AM CDT Type 2 diabetes mellitus with hyperglycemia, with long-term current use of insulin (CMS/HCC) (HCC) T4, FREE Routine 09/02/2022 11:00 AM CDT Type 2 diabetes mellitus with hyperglycemia, with long-term current use of insulin (CMS/HCC) (HCC) LIPID PANEL Routine 09/02/2022 11:00 AM CDT Type 2 diabetes mellitus with hyperglycemia, with long-term current use of insulin (CMS/HCC) (HCC) BASIC METABOLIC PANEL Routine 09/02/2022 11:00 AM CDT Type 2 diabetes mellitus with hyperglycemia, with long-term current use of insulin (CMS/HCC) (HCC) documented in this encounter Results * eGFR (09/02/2022 11:00 AM CDT) [facility] eGFR 126 mL/min/1. 73 m2 ILDA ARGUELLES (LAMINE) Comment: [...] interpretive data was last reviewed 2021. Blood 09/02/2022 11:0 0 AM CDT 09/02/2022 1:24 PM CDT Ophelia Ashraf MD LAB BLOOD ORDERABLES Final Res ult Performing Organization Address City/[facility]/ZIP Co de Phone Number SYDNIELENY ARGUELLES (LAMINE) [address] [place] [address] [employer] [place] [address] * (ABNORMAL) C-peptide (09/02/2022 11:00 AM CDT) C-peptide 5.34(H) 1.10 - 4.40 ng/mL ILDA ARGUELLES (LAMINE) Comment:Testing performed by : [facility], [address] [facility] [place] [address] Blood 09/02/2022 11:0 0 AM CDT 09/02/2022 11:09 PM CDT Ophelia Ashraf MD LAB BLOOD ORDERABLES Final Res ult ILDA ARGUELLES (MELLETTE) [address] [facility] [place] [address] * Albumin Creatinine Ratio, Urine (09/02/2022 11:00 AM CDT) Albumin Ur <12.0 mg/L [facility]DA AM H (LAMINE) Comment: Interpretive Data No reference range established. Current interpretive data was last revised 2018. Testing performed by: [facility], [address] [place] [address]., [id number] Creatinine Ur 139.4 mg/dL [facility] (LAMINE) Comment: Interpretive Data No reference range established. Current interpretive data was last revised 2018. Testing performed by: [facility], [address] [place] [address]., [id number] Albumin Creatinine Ratio, Ur <9 1 - 29 mg/g [facility] (LAMINE) Comment:Testing performed by : [facility], [address] [place] [address]., [id number] Urine 09/02/2022 11:0 0 AM CDT 09/02/2022 7:30 PM CDT Ophelia Ashraf MD LAB URINE ORDERABLES Final Res ult [facility] ([place]) [address] [facility] Department [place] [address] * (ABNORMAL) Basic metabolic panel (09/02/2022 11:00 AM CDT) Sodium 137 135 - 145 mmol/L [facility] ([place]) Potassium, pl 4.3 3.3 - 4.9 mmol/L [facility] ([place]) Chloride 102 97 - 110 mmol/L [facility] ([place]) CO2 26 22 - 32 mmol/L [facility] (LAMINE) Anion gap 9 2 - 15 mmol/L [facility] ([place]) BUN 9 8 - 25 mg/dL [facility] ([place]) Creatinine 0.58(L) 0.60 - 1.10 mg/dL [facility] ([place]) Glucose 216(H) 70 - 199 mg/dL [facility] ([place]) Comment: Interpretive Data Fasting glucose [...] interpretive data was last revised 2022. Calcium 9.1 8.5 - 10.3 mg/dL ILDA ARGUELLES (LAMINE) Blood 09/02/2022 11:0 0 AM CDT 09/02/2022 1:24 PM CDT us Ophelia Ashraf MD LAB BLOOD ORDERABLES Final Res ult ILDA ARGUELLES (LAMINE) [address] [facility] Department [place] [address] * (ABNORMAL) Lipid panel (09/02/2022 11:00 AM CDT) Cholesterol 215(H) 30 - 199 mg/dL ILDA ARGUELLES (LAMINE) Comment: Interpretive Data [...] Data was last revised on 2017. Triglycerides 214(H) <=149 mg/dL ILDA ARGUELLES (LAMINE) Comment: Interpretive [...] Data was last revised on 2017. HDL 34(L) >=40 mg/dL ILDA ARGUELLES (LAMINE) Comment: Interpretive Data [...] was last revised on 2017. LDL, calculated 138(H) <=129 mg/dL ILDA ARGUELLES (LAMINE) Comment: Interpretive [...] was last revised on 2017. Non-HDL Cholesterol 181 mg/dL ILDA ARGUELLES (LAMINE) Comment: Interpretive Data [...] was last revised on 2017. Chol/HDL ratio 6 [facility] (LAMINE) Blood 09/02/2022 11:0 0 AM CDT 09/02/2022 1:24 PM CDT Ophelia Ashraf MD LAB BLOOD ORDERABLES Final Res ult Performing Organization Address City/[facility]/ZIP Co de Phone Number ILDA ARGUELLES (LAMINE) [address] [facility] [place] [address] * TSH (09/02/2022 11:00 AM CDT) Thyroid Stimulating Hormone 1.49 0.30 - 4.20 mcIUnit/mL ILDA ARGUELLES (LAMINE) Blood 09/02/2022 11:0 0 AM CDT 09/02/2022 1:24 PM CDT Ophelia Ashraf MD LAB BLOOD ORDERABLES Final Res ult SYDNIELENY ARGUELLES (LAMINE) [address] [facility] [place] [address] * T4, free (09/02/2022 11:00 AM CDT) Free T4 1.11 0.90 - 1.70 ng/dL ILDA ARGUELLES (LAMINE) Blood 09/02/2022 11:0 0 AM CDT 09/02/2022 1:24 PM CDT us Ophelia Ashraf MD LAB BLOOD ORDERABLES Final Res ult ILDA BLANE ([place]) [address] [facility] [place] [address] documented in this encounter Visit Diagnoses Diagnosis Type 2 diabetes mellitus with hyperglycemia, with long-term current use of insulin (HCC) documented in this encounter Care Teams Heel Splitter Relationship Specialty Start Date End Date Jessica Navarro NP [address] [place] [address] PCP - General 08/23/20 documented as of this encounter
--- OUTSIDE RECORDS SUMMARY | 2024-04-14 18:32 | XMS_ITS | Encounter Summary ---
Author Organization [facility] Address [address] [facility] [address] [place] [address] Care Team Providers Care Credit Negotiator Name Role Phone Jessica Navarro NP Primary Care Provider [phone] Reason for Visit * Reason Comments Diabetes Type 2 Encounter Details Date Type Department Care Team (Late st Contact Info) Description 12/18/2022 2:00 PM CDT Office Visit 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 female. Chief Complaint Diabetes Type 2 Patient is for follow up on dibetes Patient is on Lantus insulin 20 units Qhs, Humalog insulin 8-10 units per meal, plus Metformin 1000mg bid. Used Trulicity for one month and did not get refills- did not have any side effects while on the medication Diet : eats 1-2 meals per day She monitors sugars using CGM Viviane, data downloaded not complete . Diabetes This is a chronic problem. The problem has been unchanged. Associated symptoms include fatigue. Pertinent negatives include [...] long-term current use of insulin (CMS/[facility]) ([facility]) (E11.65, Z79.4) (Primary) Assessment & Plan: Diagnosed [...] on regular basis. Orders: - POCT glucose - POCT hemoglobin A1c documented in this encounter Miscellaneous Notes * Assessment & Plan Note - Ophelia Ashraf MD - 12/18/2022 1:42 PM CDT Associated Problem(s): Type 2 diabetes mellitus without complication, without long-term current useof insulin (CMS/HCC) ([facility]) Diagnosed in 2019 Started insulin in 2021 [...] low sugars. Ophthalmology exam on regular basis. documented in this encounter Plan of Treatment Not on file documented as of this encounter Procedures Procedure Name Priority Date/Time Associated Diagnosis Comments POCT HEMOGLOBIN A1C Routine 12/18/2022 1 :27 PM CDT Type 2 diabetes mellitus with hyperglycemia, with long-term current use of insulin ([facility]) ([facility]) POCT GLUCOSE Routine 12/18/2022 1:27 PM CDT Type 2 diabetes mellitus with hyperglycemia, with long-term current use of insulin ([facility]) ([facility]) documented in this encounter Results * (ABNORMAL) POCT hemoglobin A1c (12/18/2022 1:27 PM CDT) Hemoglobin A1C, POC 9.8 % Blood 12/18/2022 1:27 PM CDT Ophelia Ashraf MD POINT OF CARE TEST ORDERABLES Final Result * POCT glucose (12/18/2022 1:27 PM CDT) Glucose Blood, POC 226 mg/dL Blood 12/18/2022 1:27 PM CDT Ophelia Asrhaf MD POINT OF CARE TEST ORDERABLES Final Result documented in this encounter Visit Diagnoses Diagnosis Type 2 diabetes mellitus with hyperglycemia, with long-term current use of insulin (HCC)- Primary documented in this encounter Care Teams Credit Negotiator Relationship Specialty Start Date End Date Melanie, Jessica Pinto NP [address] [place] [address] PCP - General 08/23/20 documented as of this encounter
--- OUTSIDE RECORDS SUMMARY | 2024-04-14 18:32 | XMS_ITS | Encounter Summary ---
Author Organization [facility] Healthcare Address [address] [place] [address] Care Team Providers Care Antique Refinisher Name Role Phone Melanie Jessica Pinto NP Primary Care Provider [phone] Ophelia Ashraf MD Unavailable [phone] Reason for Visit * Reason Onset Date Comments Surgery clearance 04/15/2023 Encounter Details Date Type Department Care Team (Late st Contact Info) Description 04/15/2023 Telephone [facility] Orthopedics and Sports Medicine [address] [facility] [address] [place] [address] Yefri Burgess MD [address] [place] [address] [address] [facility] [address] [place] [address] Surgery clearance Social History Tobacco Use Types Packs/Day Years Used Date Smoking Tobacco: Every Day E-cigarettes Smokeless Tobacco: Never Alcohol Use Standard Drinks/Week Comments Never 0 (1 standard drink = 0.6 oz pur e alcohol) AUDIT-C Answer Date Recorded Q1: How often do you have a drink containing alc ohol? Monthly or less 05/04/2023 Q2: How many drinks containi ng alcohol do you have on a typical day when you are drinking? 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 Clearance scanned into media. ING ROOM INSPECTOR * Telephone Encounter - Ella Rebolledo MA - 04/15/2023 11:19 AM CST Clearance form has now been faxed to patient's Electric Locomotive Firer/Fireman. ING ROOM INSPECTOR ING ROOM INSPECTOR * Telephone Encounter - Odilia Leach - 04/15/2023 10:32 AM CST Patient called needing a surgery clearance form faxed over to her informatica . Dr Ashraf. [phone] Please advise ING ROOM INSPECTOR documented in this encounter Plan of Treatment Not on file documented as of this encounter Visit Diagnoses Not on filedocumented in this encounter Additional Health Concerns Infection Onset Date Last Indicated Resolved Time COVID19 04/10/2023 04/10/2023 04/20/2023 3:05 AM PACKING ROOM INSPECTOR COVID: Recovered Comment:Added based on recent COVID infection. 04/20/2023 05/04/2023 07/19/2023 3:05 AM C DT documented as of this encounter Care Teams Antique Refinisher Relationship Specialty Start Date End Date Jessica Navarro NP [address] [place] [address] PCP - General 08/23/20 Ophelia Ashraf MD [address] [facility] [place] [address] Consulting Physician Endocrinology 04/15/23 documented as of this encounter
--- OUTSIDE RECORDS SUMMARY | 2024-04-14 18:32 | XMS_ITS | Encounter Summary ---
Author Organization [facility] Address [address] [facility] [address] [place] [address] Care Team Providers Care Zoo Caretaker Name Role Phone Jessica Navarro NP Primary Care Provider [phone] Encounter Details Date Type Department Care Team (Late st Contact Info) Description 12/30/2022 Telephone [facility] Diabetes Endocrine Care of [address] [place] [phone] Ophelia Ashraf MD [address] [place] [address] [address] [place] [address] Social History Tobacco Use Types Packs/Day Years [...] 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 file Not on file documented as of this encounter Miscellaneous Notes * Addendum Note - Sears, Caron, MA - 12/30/2022 10:14 AM CDTAddended by: CARON VIGIL on: 12/30/2022 10:14 AM Modules accepted: Orders * Telephone Encounter - Caron Vigil MA - 12/30/2022 10:12 AM CDT Patient is aware * Telephone Encounter - Caron Vigil MA - 12/30/2022 10:12 AM CDT ----- Message from Ophelia Ashraf MD sent at 12/30/2022 10:07 AM CDT ----- I was informed she was in the ER recently for nausea and vomiting which is a side effect of Trulicity She needs to stop the Trulicity ----- Message ----- From: Lashon Starr MD Sent: 12/29/2022 8:41 AM CDT To: Ophelia Ashraf MD documented in this encounter Plan of Treatment Not on file documented as of this encounter Visit Diagnoses Not on filedocumented in this encounter Discontinued Medications Medication Sig Discontinue Reason Start Date End Da te dulaglutide (TRULICITY) 0.75 mg/0.5 mL pen injector Inject 0.5 mL (0.75 mg total) under the skin every 7 days 09/08/2022 12/30/2022 documented as of this encounter Care Teams Zoo Caretaker Relationship Specialty Start Date End Date Jessica Navarro NP [address] [place] [address] PCP - General 08/23/20 documented as of this encounter
--- OUTSIDE RECORDS SUMMARY | 2024-04-14 18:32 | XMS_ITS | Encounter Summary ---
Author Organization [facility] Address [address] [address] Care Team Providers Care Mass Spectrometry Manager Name Role Phone Jessica Navarro NP Primary Care Provider [phone] Reason for Referral * Diagnostic Imaging (Routine) - Closed Specialty Diagnoses / Procedures Referred By Jonas reeves Referred To Contact Diagnoses Right wrist pain Procedures XR Wrist Right 1 View Topher Dong PA [address] [place] [address] Phone: tel: fax: [facility] Referral ID Status Reason Start Date Expiration Date Visits Re quested Visits Authorized [id number] Closed 07/02/2022 08/01/2023 1 1 AR Reason for Visit * Reason Comments Pain Encounter Details Date Type Department Care Team (Late st Contact Info) Description 07/02/2022 8:30 AM BURSAR Office Visit [facility] Orthopedic and Sports Medicine [address] [place] [phone] Topher Dong PA [address] [address] Tenosynovitis, de Quervain (Primary Dx); Pre-op testing Social History Tobacco Use Types Packs/Day Years [...] 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 NEW PATIENT VISIT Subjective CHIEF COMPLAINT She had concerns including Pain of the Right Wrist. HISTORY OF PRESENT ILLINESS Patient is here for evaluation of her right wrist. She states her symptoms have been present for approximately 3 years. She is right-handed. Her symptoms have worsened over the last 3 months and she believes that movement of the wrist increases her symptoms. She describes her pain as sharp, dull, and aching. She rates them as severe. Using her wrist and typing increases her symptoms. Rest has decreased her symptoms. She is performed physical therapy exercises and used anti-inflammatories and bracing for pain control. Outside EMG was performed and showed mild carpal tunnel symptoms. Pain Assessment Pain Assessment: 0-10 Pain Score: 10 - Worst possible pain Pain Location: Wrist Pain Orientation: Right Pain Descriptors: Aching, Discomfort, Dull, Sharp, Radiating, Numbness, Tingling, Pins and needles Pain Frequency: Constant/continuous Pain Onset: Gradual Clinical Progression: Gradually worsening Aggravating Factors: Bending, Stretching, Straightening, Exercise Result of Injury: No Work-Related Injury: No Patient's Stated Pain Goal: No pain Pain Interventions: Medication (See MAR), Home medication, Rest, Cold pack, Heat applied, Cold applied, Compression, Elevated, Pillow, Physical Therapy, Exercise, Other (Comment) (Braces) PAST MEDICAL HISTORY She has a past medical history [...] medication list which includes the following prescription(s): escitalopram, ibuprofen, insulin lispro, metformin, tizanidine, albuterol hfa, aripiprazole, benzonatate, freestyle elvia 2 reader, freestyle elvia 2 sensor, [...] No alcohol history on file. FAMILY HISTORY Family History Problem Relation Age of Onset Heart disease Other Hypertension Other Cancer Other Arthritis Other Diabetes Other No Known Problems Mother No Known Problems Father REVIEW OF SYSTEMS Review of Systems Constitutional: Negative for chills, fatigue and fever. HENT: Negative for sore throat. Respiratory: Negative for cough and shortness of breath. Cardiovascular: Negative for chest pain. Gastrointestinal: Negative for constipation, nausea and vomiting. Musculoskeletal: Positive for arthralgias. Neurological: Negative for dizziness, light-headedness and headaches. Objective PHYSICAL EXAM BP 116/76 Pulse 89 Ht 162.6 cm (5' 4 ) Wt 82.2 kg (181 lb 1.9 oz) BMI 31.09 kg/m?? Right hand/wrist Inspection Edema: present Palpation Tenderness: present. The tenderness is located in the first compartment. Range of motion The patient has normal range of motion of the right wrist. Th patient has normal range of motion of the fingers on the right hand. Strength The patient has 5/5 strength throughout with exceptions as noted below. Thumb extension: 4/5 Thumb abduction:4/5 Neurovascular The patient has normal vascular on the right side of their body. The patient has normal sensation on the right side of their body. Test Tomas's test: positive Left hand/wrist The patient has normal inspection, palpation, range of motion, strength, and stability of the left hand and wrist. Strength The patient has 5/5 strength throughout with exceptions as noted below. REVIEW OF X-RAYS/STUDIES/LABS XR Wrist Right 1 View Normal-appearing carpal tunnel view is noted. Electromyogram Procedure Note Date of Procedure: 06/18/2022 [...] the flexor retinaculum. Clinical correlation is recommended. AR EXAM DESCRIPTION: XR WRIST 3 OR MORE [...] Yefri Goodman M.D. AG: [employer]EC[employer] Report ID: [id number] Reading Location: [id number] Assessment/Plan Lilli was seen today for pain. Diagnoses and all orders for this visit: Tenosynovitis, de Quervain - XR Wrist Right 1 View Plan I reviewed exam findings with the patient today. We discussed treatment options including observation, bracing, injection and surgery. I went over the surgical procedure in detail with her today. Currently the patient's last A1c was 14.0. This disqualify her from being scheduled for surgery at thistime however she has a new glucose monitor and her doctor feels that her A1c has probably rapidly im proved. She is not plan to have a repeat A1c for 2 months therefore I will order 1 today. I will contact her following the results to discuss the potential for scheduling her surgery based on the level of her A1c. Patient would like to proceed with surgery as she feels that she is failed other options including bracing and she has not had success with other injections in the past. All questions were addressed today and the patient was instructed to call the office with any questions or concerns. There may be grammatical errors in this note due to use of voice recognition software. MJ Madsen AR documented in this encounter Plan of Treatment Not on file documented as of this encounter Procedures Procedure Name Priority Date/Time Associated Diagnosis Comments XR WRIST RIGHT 1 VIEW Schedule Routine, Read Routine (OP Routine) 07/02/2022 8:30 AM BURSAR Tenosynovitis, de Quervain documented in this encounter Results * (ABNORMAL) Hemoglobin A1c (07/02/2022 9:30 AM BURSAR) Hgb A1C 8.1(H) 4.0 - 5.6 % ILDA FIERRO Estimated Average Glucose 186 mg/dL ILDA FIERRO Comment: The ADA recommends reporting an estimated Average Glucose (eAG) with all Hemoglobin A1c results using the equation derived from a study of 507 normal and diabetic adults. ??Minority populations were underrepresented and children were not included. ?? (Diabetes Care 31:1683-9990, 2008). ??The eAG is not equivalent to a fasting glucose. Blood 07/02/2022 9:30 AM BURSAR 07/02/2022 4:43 PM BURSAR Narrative ILDA FIERRO - 07/02/2022 5:19 PM BURSAR Pre-op testing Topher BARKER LAB BLOOD ORDERABLES Final Result [facility]DA [id number] [address] Department [place] [address] * XR Wrist Right 1 View (07/02/2022 8:30 AM BURSAR) Anatomical Region Laterality Modality Wrist Right Digital Radiogra phy Narrative 07/02/2022 8:51 AM BURSAR Normal-appearing carpal tunnel view is noted. Topher BARKER IMG XR PROCEDURES Final Res ult documented in this encounter Visit Diagnoses Diagnosis Tenosynovitis, de Quervain- Primary Radial styloid tenosynovitis Pre-op testing Unspecified pre-operative examination Pre-op testing Unspecified pre-operative examination documented in this encounter Care Teams Mass Spectrometry Manager Relationship Specialty Start Date End Date Jessica Navarro NP [address] [place] [address] PCP - General 08/23/20 documented as of this encounter
--- OUTSIDE RECORDS SUMMARY | 2024-04-14 18:32 | XMS_ITS | Encounter Summary ---
Author Organization [facility] Address [address] [facility] [address] [place] [address] Phone Care Team Providers Care Ob Gyn Name Role Phone Navarro, Jessica Pinto NP Primary Care Provider [phone] Reason for Visit * Reason Comments Follow-up * Consultation (Routine) - Closed Specialty Diagnoses / Procedures Referred By Contac t Referred To Contact Plastic Surgery Diagnoses Angie Arita MD [address] [facility] [phone] [place] [address] Phone: tel: fax: [facility] (All Locations) Referral ID Status Reason Start Date Expiration Date V isits Requested Visits Authorized [id number] Closed Specialty Services Required 12/25/2021 01/24/2023 99 99 Encounter Details Date Type Department Care Team (Late st Contact Info) Description 07/16/2022 2:00 PM CDT Office Visit [facility] Surgery [address] [place] [address] [address] [place] [address] Angie Randhawa MD [address] [facility] [phone] [place] [address] Diana (Primary Dx) Social History Tobacco Use Types [...] 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 In brief, 27 y/o F with B symptomatic macromastia. Overall doing well. Has changed diabetic medications. Has gained weight but this is about her stable long-term weight. Decreased tobacco use - 1-2 cig / day A1c improved as well. Recently had rashes between breasts. No other issues O: Ht 162.6 cm (5' 4 ) Wt 90.8 kg (200 lb 3.2 oz) BMI 34.36 kg/m?? Gen: NAD, A&O x3 Breast: right side larger; no masses; prior scott pattern incision noted; no nipple discharge; no stigmata of rashes; mild shoulder grooving. Left Nipple less sensitive compared to right Measurements below in cm: Right Breast Left Breast SN to Nipple: 27 26 Nipple to IMF: 15 14 Subaxillary Rolls: ++ ++ A/P: 27 y.o. female with bilateral symptomatic macromastia. I discussed with her the nature of macromastia how it is related to her neck, upper back, and shoulder pain. I explained reduction mammaplasty would offer alleviation of these symptoms with the general trade-off for scarring. I billy out my plan for incisions in a standard Scott pattern. I explained that this would allow me to remove excess skin and breast tissue, and allow for repositioning the breast tissue and nipple-areolar complex to create a smaller breast in an overall better position. Sheverbalizes understanding of this. I described the risks and rationale of surgical treatment, including, but not limited to, bleeding,infection, pain, scarring, hematoma, seroma, asymmetry, change of nipple sensation, loss of nipple areola complex, changes over time, wound dehiscence, delayed wound healing, and need for further surgery. All questions were answered. The patient verbalized understanding and wished to proceed. She would like to be smaller than large. Her A1c has improved with modifications. Her weight has increased but is overall stable. She wishes to proceed with surgery. We will plan for bilateral reduction mammoplasty with a Scott pattern approach and an inferior pedicle. I anticipate removing 600 g off the right and 500 g off the left breast based on her measurements. We will submit to her insurance for predetermination. If approved, we will schedule accordingly. Patient may call back with any questions or concerns in the interim. Follow up: surgery Restriction: none I spent 20 minutes on this patient encounter which included review of medical records. Over half the time was spent with the patient face to face discussing the treatment plan, counseling and coordinating care. Angie Randhawa MD 07/16/22 1:58 PM This document was transcribed using voice recognition software without a human mid level business analyst. Itmay contain typographical, grammatical, and/or syntax errors. documented in this encounter Plan of Treatment Not on file documented as of this encounter Visit Diagnoses Diagnosis Macromastia- Primary Hypertrophy of breast documented in this encounter Historical Medications * This list may reflect changes made after this encounter. ARIPiprazole (ABILIFY) 10 mg tablet Take 1 tablet (10 mg total) by mouth nightly at bedtime. 07/01/2022 04/14/2023 added in this encounter Care Teams Ob Gyn Relationship Specialty Start Date End Date Jessica Navarro NP [address] [place] [address] PCP - General 08/23/20 documented as of this encounter
--- OUTSIDE RECORDS SUMMARY | 2024-04-14 18:32 | XMS_ITS | Encounter Summary ---
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 POINT PEN ASSEMBLY MACHINE OPERATOR * Telephone Encounter - Delaney Morgan ATC - 07/04/2022 1:29 PM CST ----- Message from MJ Madsen sent at 07/03/2022 3:21 PM BALLPOINT PEN ASSEMBLY MACHINE OPERATOR ----- Based on her improved A1C you can have her scheduled with Dr Saba sanchez available and we will retest her A1C at that time. And I believe she will be in range POINT PEN ASSEMBLY MACHINE OPERATOR documented in this encounter Plan of Treatment Not on file documented as of this encounter Visit Diagnoses Not on filedocumented in this encounter Care Teams Mineral Technologist Relationship Specialty Start Date End Date Melanie, Jessica Pinto NP [address] [place] [address] PCP - General 08/23/20 documented as of this encounter
--- OUTSIDE RECORDS SUMMARY | 2024-04-14 18:32 | XMS_ITS | Encounter Summary ---
Author Organization [facility] Address [address] [facility] [address] [place] [address] Care Team Providers Care Pharmacist Helper Name Role Phone Jessica Navarro NP Primary Care Provider Reason for Visit * Reason Comments Diabetes Type 2 Encounter Details Date Type Department Care Team (Late st Contact Info) Description 09/02/2022 10:30 AM CDT Office Visit [facility] Diabetes [facility] of [address] [place] [address] Ophelia Ashraf MD [address] [place] [address] [address] [place], [place] [id number] Type 2 diabetes mellitus with hyperglycemia, with long-term current use of insulin (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 female. Chief Complaint Diabetes Type 2 Patient is for follow up on dibetes Patient is on Lantus insulin 20 units Qhs, Humalog insulin 4 units with breakfast and 8 units with dinner, plus Metformin 1000 mg bid. Diet : eats 2 meal /day- did not see dietitian yet- she gained weight. She monitors sugars using CGM Viviane, data downloaded not complete , but showing fasting hyperglycemia Diabetes This is a chronic problem. The [...] with long-term current use of insulin (CMS/[facility]) ([facility]) (E11.65, Z79.4) (Primary) Assessment & Plan: Diagnosed [...] regular basis. Orders: - POCT glucose - Albumin Creatinine Ratio, Urine; Future - Basic metabolic panel; Future - Lipid panel; Future - TSH; Future - T4, free; Future - C-peptide; Future documented in this encounter Miscellaneous Notes * Assessment & Plan Note - Ophelia Ashraf MD - 09/02/2022 10:35 AM CDT Associated Problem(s): Type 2 diabetes mellitus without complication, without long-term current useof insulin (CMS/HCC) ([facility]) Diagnosed in 2019 Started insulin in 2021 [...] Date/Time Associated Diagnosis Comments POCT GLUCOSE Routine 09/02/2022 10:36 AM CDT Type 2 diabetes mellitus with hyperglycemia, with long-term current use of insulin ([facility]) ([facility]) documented in this encounter Results * (ABNORMAL) C-peptide (09/02/2022 11:00 AM CDT) C-peptide 5.34(H) 1.10 - 4.40 ng/mL ILDA ARGUELLES ([place]) Comment:Testing performed by : [facility], [address] [facility] [place]., [address] Blood 09/02/2022 11:0 0 AM CDT 09/02/2022 11:09 PM CDT us Ophelia Ashraf MD LAB BLOOD ORDERABLES Final Res ult ILDA ARGUELLES ([place]) [address] [facility] Department [place] [address] * T4, free (09/02/2022 11:00 AM CDT) Free T4 1.11 0.90 - 1.70 ng/dL ILDA ARGUELLES ([place]) Blood 09/02/2022 11:0 0 AM CDT 09/02/2022 1:24 PM CDT Ophelia Ashraf MD LAB BLOOD ORDERABLES Final Res ult Performing Organization Address City/[facility]/ZIP Co de Phone Number ILDA ARGUELLES ([place]) [address] [facility] [place] [address] * TSH (09/02/2022 11:00 AM CDT) Thyroid Stimulating Hormone 1.49 0.30 - 4.20 mcIUnit/mL ILDA [place] ([place]) Blood 09/02/2022 11:0 0 AM CDT 09/02/2022 1:24 PM CDT Ophelia Ashraf MD LAB BLOOD ORDERABLES Final Res ult Performing Organization Address City/[facility] Co de Phone Number ILDA ARGUELLES ([place]) [address] [facility] [place] [address] * (ABNORMAL) Lipid panel (09/02/2022 11:00 AM CDT) Cholesterol 215(H) 30 - 199 mg/dL ILDA ARGUELLES ([place]) Comment: Interpretive Data Ages < or = [...] on 2017. Triglycerides 214(H) <=149 mg/dL [facility] ([place]) Comment: Interpretive Data Ages < [...] on 2017. HDL 34(L) >=40 mg/dL [facility] ([place]) Comment: Interpretive Data Ages < [...] 2017. LDL, calculated 138(H) <=129 mg/dL [facility] ([place]) Comment: Interpretive Data Ages < [...] 2017. Non-HDL Cholesterol 181 mg/dL ILDA ARGUELLES ([place]) Comment: Interpretive Data Ages < or = [...] last revised on 2017. Chol/HDL ratio 6 XIMENA ARGUELLES ([place]) Blood 09/02/2022 11:0 0 AM CDT 09/02/2022 1:24 PM CDT us Ophelia Ashraf MD LAB BLOOD ORDERABLES Final Res ult SYDNIELENY ARGUELLES ([place]) [address] [facility] Department [place] [address] * (ABNORMAL) Basic metabolic panel (09/02/2022 11:00 AM CDT) Sodium 137 135 - 145 mmol/L [facility] ([place]) Potassium, pl 4.3 3.3 - 4.9 mmol/L [facility] ([place]) Chloride 102 97 - 110 mmol/L [facility] ([place]) CO2 26 22 - 32 mmol/L [facility] ([place]) Anion gap 9 2 - 15 mmol/L [facility] ([place]) BUN 9 8 - 25 mg/dL [facility] ([place]) Creatinine 0.58(L) 0.60 - 1.10 mg/dL [facility] ([place]) Glucose 216(H) 70 - 199 mg/dL [facility] ([place] Comment: Interpretive Data Fasting glucose [...] 2022. Calcium 9.1 8.5 - 10.3 mg/dL [facility] ([place]) Blood 09/02/2022 11:0 0 AM CDT 09/02/2022 1:24 PM CDT Ophelia Ashraf MD LAB BLOOD ORDERABLES Final Res ult [facility] ([place]) [address] [facility] Department [place] [address] * Albumin Creatinine Ratio, Urine (09/02/2022 11:00 AM CDT) Albumin Ur <12.0 mg/L [facility] ([place]) Comment: Interpretive Data No reference range established. Current interpretive data was last revised 2018. Testing performed by: [facility], [address] [place]., [address] Creatinine Ur 139.4 mg/dL SYDNIELENY ARGUELLES ([place]) Comment: Interpretive Data No reference range established. Current interpretive data was last revised 2018. Testing performed by: [facility], [address] [place] [address]., [id number] Albumin Creatinine Ratio, Ur <9 1 - 29 mg/g ILDA ARGUELLES ([place]) Comment:Testing performed by : [facility], [address] [place] [address], [id number] Urine 09/02/2022 11:0 0 AM CDT 09/02/2022 7:30 PM CDT us Ophelia Ashraf MD LAB URINE ORDERABLES Final Res ult ILDA BLANE ([place]) [address] [facility] Department [place] [address] * POCT glucose (09/02/2022 10:36 AM CDT) Glucose Blood, POC 220 mg/dL Blood 09/02/2022 10:3 6 AM CDT us Ophelia Ashraf MD POINT OF CARE TEST ORDERABLES Final Result documented in this encounter Visit Diagnoses Diagnosis Type 2 diabetes mellitus with hyperglycemia, with long-term current use of insulin (HCC)- Primary documented in this encounter Care Teams Pharmacist Helper Relationship Specialty Start Date End Date Jessica Navarro NP [address] [place] [address] PCP - General 08/23/20 documented as of this encounter
--- OUTSIDE RECORDS SUMMARY | 2024-04-14 18:32 | XMS_ITS | Encounter Summary ---
Author Organization [facility] Address [address] [facility] [address] [place] [address] Care Team Providers Care Bullet Lubricating Machine Operator Name Role Phone Jessica Navarro NP Primary Care Provider Encounter Details Date Type Department Care Team (Late st Contact Info) Description 05/20/2022 Telephone [facility] Diabetes Endocrine Care of [address] [place] [phone] Ophelia Ashraf MD [address] [place] [address] [address] [place] [address] Social History Tobacco Use Types [...] encounter Miscellaneous Notes * Telephone Encounter - Caron Bernard MA - 05/23/2022 4:57 PM CST Prior auth for Viviane has been received and completed through Cover My Meds. Waiting for response LE MANAGER * Telephone Encounter - Caron Bernard MA - 05/23/2022 2:19 PM CST Viviane 2 senors and reader ordered Patient is aware. LE MANAGER * Telephone Encounter - Caron Bernard MA - 05/20/2022 11:32 AM CST Patient called and stated she wants us to order her a CGM, she states her meter is not reading correctly and she is having to test several times and gets different readings each time. I told her that I would send you the message regarding the issue but you were out the rest of the week and it would be Thursday before this is addressed. Please advise when you are back. LE MANAGER documented in this encounter Plan of Treatment Not on file documented as of this encounter Visit Diagnoses Not on filedocumented in this encounter Care Teams Bullet Lubricating Machine Operator Relationship Specialty Start Date End Date Jessica Navarro NP [address] [place] [address] PCP - General 08/23/20 documented as of this encounter
--- OUTSIDE RECORDS SUMMARY | 2024-04-14 18:32 | XMS_ITS | Encounter Summary ---
Author Organization [facility] Healthcare Address [address] [place] [address] Care Team Providers Care General Counselor Name Role Phone Jessica Navarro NP Primary Care Provider Reason for Visit * Reason Comments Hyperglycemia Encounter Details Date Type Department Care Team (Late st Contact Info) Description 01/03/2022 1:46 AM CDT - 01/03/2022 3:40 AM CDT Emergency [facility] [address] [place] [address] Dennis Escalante MD [address] [place] [address] Hyperglycemia (Primary Dx) Discharge Disposition: Discharge to home or self care Social History Tobacco Use Types Packs/Day Years Used Date Smoking Tobacco: Former Cigarettes Smokeless Tobacco: Never Alcohol Use Standard [...] Sign Reading Time Taken Comments Blood Pressure 148/80 01/03/2022 3:05 AM CDT Pulse 78 01/03/2022 3:05 AM CDT Temperature 36.6 ??C (97.8 ??F) 01/03/2022 3:05 AM CD T Respiratory Rate 20 01/03/2022 12:32 AM CDT Oxygen Saturation 96% 01/03/2022 3:05 AM CDT Inhaled Oxygen Concentration - - Weight 97.1 kg (214 lb) 01/03/2022 12:32 AM CDT Height 160 cm (5' 3 ) 01/03/2022 12:32 AM CDT Body Mass Index 37.91 01/03/2022 12:32 AM CDT documented in this encounter Discharge Diagnoses Diagnosis Type 2 diabetes mellitus with hyperglycemia (CMS/HCC) ([facility]) - TYPE 2 DIABETES MELLITUS WITH HYPERGLYCEMIA Gastro-esophageal reflux disease without esophagitis - GASTRO-ESOPHAGEAL REFLUX DISEASE WITHOUT ESOPHAGITIS Disorder of thyroid, unspecified - DISORDER OF THYROID, UNSPECIFIED Unspecified asthma, uncomplicated - UNSPECIFIED ASTHMA, UNCOMPLICATED Family history of ischemic heart disease and other diseases of the circulatory system - FAMILY HISTORY OF ISCHEMIC HEART DISEASE AND OTHER DISEASES OF THE CIRCULATORY SYSTEM Family history of arthritis - FAMILY HISTORY OF ARTHRITIS Family history of diabetes mellitus - FAMILY HISTORY OF DIABETES MELLITUS terminal clerk (current) use of oral hypoglycemic drugs - BUSINESS ENTERPRISE OFFICER (CURRENT) USE OF ORAL HYPOGLYCEMIC DRUGS Other shelter (current) drug therapy - OTHER HALFWAY (CURRENT) DRUG THERAPY documented in this encounter Discharge Instructions * Attachments The following attachments cannot be sent through Care Everywhere. * Diabetes with High Blood Sugar (Emirati) documented in this encounter Medications at Time of Discharge albuterol HFA (PROVENTIL HFA,VENTOLIN HFA,PROAIR HFA) 90 mcg/actuation inhaler Inhale 2 puffs every 4 (four) hours as needed for wheezing 1 Inhaler 05/14/2020 4 ARIPiprazole (ABILIFY) 5 mg tablet Take 2 tablets (10 mg total) by mouth every morning 02/19/2021 3 benzonatate (TESSALON) 100 mg capsuleIndications:C ough Take 1 capsule (100 mg total) by mouth 3 (three) times a day as needed for cough 15 capsule 05/14/2020 3 escitalopram (LEXAPRO) 10 mg tablet Take 10 mg by mouth daily 2 gabapentin (NEURONTIN) 300 mg capsule TAKE 2 CAPSULES BY MOUTH AT BEDTIME 60 capsule 1 05/14/2021 3 hydrOXYzine (ATARAX) 25 mg tablet Take 25 mg by mouth 3 (three) times a day as needed 11/20/2020 3 ibuprofen (ADVIL,MOTRIN) 800 mg tabletIndications:Pa in Take 1 tablet (800 mg total) by mouth every 8 (eight) hours as needed for pain 21 tablet 09/09/2021 4 metFORMIN (GLUCOPHAGE) 500 mg tablet Take 1 tablet (500 mg total) by mouth 2 (two) times a day with meals 60 tablet 10/30/2020 3 nitrofurantoin monohydrate (MACROBID) 100 mg capsule Take 1 capsule (100 mg total) by mouth 2 (two) times a day 10 capsule 10/30/2020 3 ondansetron ODT (ZOFRAN-ODT) 4 mg disintegrating tablet Dissolve 1 tablet oral every 4 hours as needed for nausea or vomiting. 15 tablet 06/12/2021 3 OneTouch Ultra Test strip CHECK BLOOD SUGAR 1-2 TIMES DAILY 12/29/2020 3 tiZANidine (ZANAFLEX) 4 mg tablet Take 1 tablet (4 mg total) by mouth every 6 (six) hours as needed 01/21/2021 4 UNABLE TO FIND Ambilify 10mg 02 3 valACYclovir (VALTREX) 500 mg tablet TAKE 1 TABLET BY MOUTH TWICE DAILY FOR 3 DAYS 11/01/2020 3 documented as of this encounter Discharge Disposition Disposition Code Departure Means Destination Discharge to home or self care documented in this encounter ED Notes * Dennis Escalante MD - 01/03/2022 2:01 AM CDT HPI Chief Complaint Patient presents with ??? Hyperglycemia Patient is a 26-year-old female, diabetic, presents emergency room stating her blood sugars were high prior to arrival. Patient states she has not been feeling right all day. Patient denies any fevers or chills. No respiratory complaints. No vomiting or diarrhea. No urinary symptoms. No aggravatingalleviating factors. There is no other complaints of further review of symptoms negative Patient History: Patient Active Problem List Diagnosis Date Noted ??? Acquired deformity of left toe 03/29/2020 ??? ELLI (obstructive sleep apnea) 03/01/2019 ??? Tobacco use disorder 03/01/2019 Past Medical History: Diagnosis Date ??? Anxiety ??? Asthma ??? Depression ??? GERD (gastroesophageal reflux disease) ??? Thyroid disease Past Surgical History: Procedure Laterality Date ??? ANKLE SURGERY ??? BREAST SURGERY breast reduction ??? FL FLUORO GUIDED LUMBAR PUNCTURE Right 03/01/2021 ??? FL FLUORO GUIDED LUMBAR PUNCTURE Right 04/08/2021 ??? THYROID SURGERY Family History Problem Relation Age of Onset ??? Heart disease Other ??? Hypertension Other ??? Cancer Other ??? Arthritis Other ??? Diabetes Other ??? No Known Problems Mother ??? No Known Problems Father Social History Tobacco Use ??? Smoking status: Former Packs/day: 1.00 Types: Cigarettes ??? Smokeless tobacco: Never Substance and Sexual Activity ??? Drug use: Never ??? Sexual activity: Not Currently Alcohol Use: Not on file Alcohol Use: Not on file Social History Social History Narrative ??? Not on file Review of Systems Review of Systems All other systems reviewed and are negative. Physical Exam ED Triage Vitals [01/03/22 0032] Temp Pulse Resp BP SpO2 36.1 ??C (97 ??F) 91 20 154/93 100 % Temp src Heart Rate Source Patient Position BP Location FiO2 (%) Temporal -- -- -- -- Height Height Method Weight Weight Method 1.6 m (5' 3 ) Stated 97.1 kg (214 lb) Stated Physical Exam Vitals and nursing note reviewed. Constitutional: General: She is not in acute distress. Appearance: She is not ill-appearing, toxic-appearing or diaphoretic. HENT: Head: Normocephalic and atraumatic. Mouth/Throat: Mouth: Mucous membranes are moist. Pharynx: Oropharynx is clear. Eyes: Extraocular Movements: Extraocular movements intact. Conjunctiva/sclera: Conjunctivae normal. Cardiovascular: Rate and Rhythm: Normal rate and regular rhythm. Pulses: Normal pulses. Pulmonary: Effort: Pulmonary effort is normal. No respiratory distress. Breath sounds: Normal breath sounds. No wheezing. Abdominal: General: There is no distension. Palpations: Abdomen is soft. There is no mass. Tenderness: There is no abdominal tenderness. Musculoskeletal: General: Normal range of motion. Cervical back: Normal range of motion. No rigidity. Skin: General: Skin is warm and dry. Capillary Refill: Capillary refill takes less than 2 seconds. Neurological: General: No focal deficit present. Mental Status: She is alert and oriented to person, place, and time. Gait: Gait normal. Psychiatric: Thought Content: Thought content normal. [facility] ED Course as of 01/03/22331 Time: 01/03 331 Comment: Blood sugar 306 By: Dennis Escalante MD Final diagnoses: Hyperglycemia Dennis Escalante MD 01/03/22331 * Georgina Cedillo RN - 01/03/2022 12:29 AM CDT Patient reports not feeling well today. Patient's symptoms include brain fog, nausea, headache, ABDpain, fatigue, and shakiness. Patient checked her blood sugar and her meter read HI glucose above 600. documented in this encounter Plan of Treatment Not on file documented as of this encounter Procedures Procedure Name Priority Date/Time Associated Diagnosis Comments POCT GLUCOSE DEVICE Routine 01/03/2022 3 :30 AM CDT URINALYSIS AND REFLEX TO MICROSCOPIC AND CULTURE STAT 01/03/2022 1:02 AM CDT EGFR STAT 01/03/2022 12:43 AM CDT DIFFERENTIAL AUTO STAT 01/03/2022 12: 43 AM CDT CBC WITH AUTO DIFFERENTIAL STAT 01/03/2022 12:43 AM CDT COMPREHENSIVE METABOLIC PANEL STAT 01/03/2022 12:43 AM CDT POCT GLUCOSE DEVICE Routine 01/03/2022 1 2:37 AM CDT documented in this encounter Results * (ABNORMAL) POCT glucose (01/03/2022 3:30 AM CDT) Glucose, POC 306(H) 71 - 98 mg/dL [facility] ([place]) Blood 01/03/2022 3:30 AM CDT 01/03/2022 3:30 AM CDT us Dennis Escalante MD LAB POCT ORDERABLES - DEVICE Final Result [facility] ([place]) [address] [facility] Department [place] [address] * (ABNORMAL) Urinalysis reflex to microscopic and culture Urine (01/03/2022 1:02 AM CDT) Color, ur Straw Yellow [facility] ([place]) Clarity, ur Clear Clear [facility] ([place]) Specific gravity, ur 1.033(H) 1.003 - 1.030 [facility] ([place]) pH, urine 5.5 [facility] ([place]) Protein, ur ql Negative Negative [facility] ([place]) Glucose, ur ql 4+(A) Negative [facility] ([place]) Ketones, ur Negative Negative [facility] ([place]) Bilirubin, ur Negative Negative [facility] ([place]) Blood, ur Negative Negative [facility] ([place]) Urobilinogen, ur <2.0 <2.0 mg/dL [facility] ([place]) Nitrite, ur Negative Negative [facility] ([place]) Leukocyte esterase, ur Negative Negative [facility] ([place]) UA reflex comment Reflex conditions for microscopic UA and culture not met. ILDA [facility] ([place]) Urine 01/03/2022 1:02 AM CDT 01/03/2022 1:04 AM CDT Narrative ILDA [facility] ([place]) - 01/03/2022 1:20 AM CDT ?? Urine pH is affected by diet, medications, systemic acid-base disturbances, and renal tubular function. ??pH may affect urinary stone formation. ??For example, urine pH below 6.0 may help reduce the tendency for calcium phosphate stones and pH greater than 6.0 may reduce the tendency for uric acid stone formation. Source: [employer]. Last revised 05-07-2017 us Dennis Escalante MD LAB MICROBIOLOGY - GENERAL OR DERABLES Final Result [facility] ([place]) [address] [facility] Department [place] [address] * eGFR (01/03/2022 12:43 AM CDT) eGFR 122 mL/min/1. 73 m2 [facility] ([place]) Comment: Interpretive Data Reference Interval Normal [...] interpretive data was last reviewed 2021. Blood 01/03/2022 12:4 3 AM CDT 01/03/2022 12:49 AM CDT us Dennis Escalante MD LAB BLOOD ORDERABLES Final Re sult [facility] ([place]) [address] [facility] Department [place] [address] * (ABNORMAL) Differential, auto (01/03/2022 12:43 AM CDT) Neutrophil abs 4.1 1.7 - 6.5 K/cumm [facility] ([place]) Imm gran abs 0.0 0.0 - 0.1 K/cumm [facility] ([place]) Lymphocyte abs 3.4(H) 0.8 - 3.3 K/cumm [facility] ([place]) Monocyte abs 0.5 0.2 - 0.8 K/cumm [facility] ([place]) Eosinophil abs 0.5 0.0 - 0.5 K/cumm [facility] ([place]) Basophil abs 0.1 0.0 - 0.1 K/cumm [facility] ([place]) Neutrophil pct 47.9 % [facility] ([place]) Comment: Interpretive Data Percent cell count reference ranges are not reported, since discordance with absolute values may lead to misinterpretation of CBC data. Current Interpretive Data was last revised on 2017. Imm gran pct 0.3 % [facility] ([place]) Comment: Interpretive Data Percent cell count reference ranges are not reported, since discordance with absolute values may lead to misinterpretation of CBC data. Current Interpretive Data was last revised on 2017. Lymphocyte pct 39.4 % [facility] ([place]) Comment: Interpretive Data Percent cell count reference ranges are not reported, since discordance with absolute values may lead to misinterpretation of CBC data. Current Interpretive Data was last revised on 2017. Monocyte pct 5.3 % [facility] ([place]) Comment: Interpretive Data Percent cell count reference ranges are not reported, since discordance with absolute values may lead to misinterpretation of CBC data. Current Interpretive Data was last revised on 2017. Eosinophil pct 6.3 % [facility] ([place]) Comment: Interpretive Data Percent cell count reference ranges are not reported, since discordance with absolute values may lead to misinterpretation of CBC data. Current Interpretive Data was last revised on 2017. Basophil pct 0.8 % [facility] ([place]) Comment: Interpretive Data Percent cell count reference ranges are not reported, since discordance with absolute values may lead to misinterpretation of CBC data. Current Interpretive Data was last revised on 2017. Blood 01/03/2022 12:4 3 AM CDT 01/03/2022 12:49 AM CDT Dennis Escalante MD LAB BLOOD ORDERABLES Final Re sult [facility] ([place]) [address] [facility] Department [place] [address] * (ABNORMAL) CBC with auto differential (01/03/2022 12:43 AM CDT) WBC 8.6 3.8 - 9.9 K/cumm [facility] ([place]) Hgb 14.3 11.9 - 15.5 g/dL [facility] ([place]) Hct 39.8 35.6 - 45.5 % [facility] ([place]) Plt 222 150 - 400 K/cumm [facility] ([place]) MPV 12.2 9.1 - 12.3 fL [facility] ([place]) RBC 4.56 3.90 - 5.20 M/cumm [facility] ([place]) MCV 87.3 81.3 - 96.4 fL [facility] ([place]) MCH 31.4 27.1 - 33.3 pg [facility] ([place]) MCHC 35.9(H) 32.3 - 35.7 g/dL [facility] ([place]) RDW CV 11.4 11.1 - 14.9 % [facility] RDW SD 36.4 35.7 - 48.1 fL [facility] NRBC abs 0.00 0.00 - 0.01 K/cumm [facility] ([place]) Blood 01/03/2022 12:4 3 AM CDT 01/03/2022 12:49 AM CDT us Dennis Escalante MD LAB BLOOD ORDERABLES Final Re sult [facility] ([place]) [address] [facility] Department [place] [address] * (ABNORMAL) Comprehensive metabolic panel (01/03/2022 12:43 AM CDT) Sodium 129(L) 135 - 145 mmol/L [facility] ([place] Potassium, pl 4.2 3.3 - 4.9 mmol/L [facility] Chloride 92(L) 97 - 110 mmol/L [facility] ([place]) CO2 24 22 - 32 mmol/L [facility] ([place]) Anion gap 14 2 - 15 mmol/L [facility] BUN 9 8 - 25 mg/dL [facility] ([place]) Creatinine 0.68 0.60 - 1.10 mg/dL [facility] ([place] Glucose 590(C) 70 - 199 mg/dL [facility] ([place]) Comment: Critical Result called to and read back by Harsh Roberson RN ER, DATE: 2022-01-03 01:53:35 BY: Grant May Interpretive Data Fasting glucose >/= 126 mg/dl [...] classification and Diagnosis of Diabetes Diabetes Care 2017;40 (Suppl. 1):S11. Current interpretive data was last revised 2017. Calcium 10.1 8.5 - 10.3 mg/dL [facility] Bilirubin, total 0.4 0.1 - 1.2 mg/dL [facility] ([place]) Protein, pl 8.0 6.5 - 8.5 g/dL [facility] ([place]) Albumin 5.1(H) 3.5 - 5.0 g/dL [facility] ([place]) Alk phos 141(H) 40 - 130 Units/L [facility] ([place]) ALT 119(H) 7 - 45 Units/L [facility] ([place]) AST 102(H) 10 - 45 Units/L [facility] ([place]) Comment:Slightly Hemolyzed S pecimen Blood 01/03/2022 12:4 3 AM CDT 01/03/2022 12:49 AM CDT us Dennis Escalante MD LAB BLOOD ORDERABLES Final Re sult [facility]LL[facility] ([place]) [address] [facility] [place] [address] * (ABNORMAL) POCT glucose (01/03/2022 12:37 AM CDT) [facility] Glucose, POC 590(C) 71 - 98 mg/dL [facility] ([place]) Comment:Glu2: RN/ Notified Blood 01/03/2022 12:3 7 AM CDT 01/03/2022 12:37 AM CDT us Notinfile Unknown LAB POCT ORDERABLES - DEVICE F inal Result Performing Organization Address City/[facility]/ZIP Co de Phone Number IL[facility] ([place]) [address] [facility] [place] [address] documented in this encounter Visit Diagnoses Diagnosis Hyperglycemia- Primary Other abnormal glucose documented in this encounter Administered Medications Inactive Administered Medications - up to 3 most recent administrations Medication Order MAR Action Action Date Dose Rate Site insulin regular (HumuLIN R, NovoLIN R) 100 unit/mL injection 10 Units 10 Units, intravenous, Once, On Thu01/03/22 at 0207, For 1 dose Given 01/03/2022 2:09 AM CDT 10 Units sodium chloride 0.9% bolus 1,000 mL 1,000 mL, intravenous, at 1,000 mL/hr, Administer over 1 Hours, Once, On Thu01/03/22 at 0207, For 1 dose New Bag 01/03/2022 2:08 AM CDT 1,000 mL 1000 mL/hr documented in this encounter Active and Recently Administered Medications Times are shown in CDT. Scheduled Medication Order 01/01/2022 01/02/2022 01/03/2022 insulin regular (HumuLIN R, NovoLIN R) 100 unit/mL injection 10 Units (COMPLETED) 10 Units, intravenous, Once, On Thu01/03/22 at 0207, For 1 dose 0209 (Given - Provid er: Salvatore Gimenez RN) sodium chloride 0.9% bolus 1,000 mL (COMPLETED) 1,000 mL, intravenous, at 1,000 mL/hr, Administer over 1 Hours, Once, On Thu01/03/22 at 0207, For 1 dose 0208 (New Bag - Prov ider: Salvatore Gimenez RN)[id number] (Stopped - Provider: Salvatore Gimenez RN) documented in this encounter Orders Lab Orders Without Results Count Last Ordered D ate First Ordered Date POCT GLUCOSE DEVICE 3 01/03/2022 documented in this encounter Care Teams General Counselor Relationship Specialty Start Date End Date Jessica Navarro NP [address] [place] [address] PCP - General 08/23/20 documented as of this encounter
--- OUTSIDE RECORDS SUMMARY | 2024-04-14 18:32 | XMS_ITS | Encounter Summary ---
Author Organization [facility] Healthcare Address [address] [place] [address] Care Team Providers Care Market News Reporter Name Role Phone Jessica Navarro NP Primary Care Provider Encounter Details Date Type Department Care Team (Late st Contact Info) Description 04/13/2023 Telephone [facility] Diabetes Endocrine Care of [address] [phone] Mirian Call Social History Tobacco Use Types Packs/Day [...] of Binge Drinking Not on file 10/27 Personal Safety Answer Date Recorded Getting School Help Needed Denies 04/10 Comments No Sex and Gender Information Value Date Recorded Sex Assigned at Not on file Legal Sex Female 11:31 AM CDT Gender Identity Not on file Sexual Orientation Not on file Occupation Industry Job Start Date Job End Date [employer] Not on file N ot on file Not on file documented as of this encounter Miscellaneous Notes * Telephone Encounter - Caron Bernard MA - 04/13/2023 2:44 PM CST Changed patient's appointment, that is all she wanted NING MANAGER * Telephone Encounter - Mirian Call - 04/13/2023 11:32 AM CST Patient left a msg asking for Caron to give her a call back [facility] Call [phone] NING MANAGER documented in this encounter Plan of Treatment Not on file documented as of this encounter Visit Diagnoses Not on filedocumented in this encounter Additional Health Concerns Infection Onset Date Last Indicated Resolved Time COVID19 04/10/2023 04/10/2023 04/20/2023 3:05 AM CLEANING MANAGER documented as of this encounter Care Teams Market News Reporter Relationship Specialty Start Date End Date Melanie, Jessica Pinto NP [address] [place] [address] PCP - General 08/23/20 documented as of this encounter
--- OUTSIDE RECORDS SUMMARY | 2024-04-14 18:32 | XMS_ITS | Encounter Summary ---
Author Organization [facility] Healthcare Address [address] [place] [address] Care Team Providers Care Dust Brush Assembler Name Role Phone Jessica Navarro NP Primary Care Provider Reason for Visit * Reason Comments Diabetes Type 2 Encounter Details Date Type Department Care Team (Late st Contact Info) Description 04/14/2023 9:45 AM BEHAVIORAL HEALTH AIDE Office Visit [facility] Diabetes Endocrine Care of [address] [place] [phone] Ophelia Ashraf MD [address] [place] [address] [place] [address] Type 2 diabetes mellitus with hyperglycemia, with long-term current use of insulin (CMS/HCC) (HCC) (Primary Dx) Social History Tobacco Use [...] 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 N ot on file Not on file documented as of this encounter Last Filed Vital Signs Vital Sign Reading Time Taken Comments Blood Pressure 132/70 04/14/2023 9:59 AM BEHAVIORAL HEALTH AIDE Pulse - - Temperature - - Respiratory Rate - - Oxygen Saturation - - Inhaled Oxygen Concentration - - Weight 82.7 kg (182 lb 6.4 oz) 04/14/2023 9:59 A M BEHAVIORAL HEALTH AIDE Height 160 cm (5' 3 ) 04/14/2023 9:59 AM BEHAVIORAL HEALTH AIDE Body Mass Index 32.31 04/14/2023 9:59 AM BEHAVIORAL HEALTH AIDE documented in this encounter Progress Notes * Ophelia Ashraf MD - 04/14/2023 9:45 AM CST Subjective/Objective Patient ID: Lilli Santos is a 28 y.o. female. Chief Complaint Diabetes Type 2 Patient is for follow up on diabetes Patient is on Metformin 1000 mg bid. She has been off insulin for last 3-4 days She changed diet and eating more healthy- she lost 10 lbs. She monitors sugars using CGM Viviane, data downloaded not complete . Average sugar 120 Diabetes This is a chronic problem. The problem has been unchanged. Pertinent negatives include no abdominalpain, fatigue, nausea, numbness, rash or vomiting. Review of Systems Constitutional: Negative for fatigue and unexpected weight change. Eyes: Negative for visual disturbance. Respiratory: Negative for wheezing. Cardiovascular: Negative for palpitations and leg [...] Left foot: No deformity. Feet: Right Foot: Skin Integrity: Negative for ulcer. Left Foot: Skin Integrity: Negative for ulcer. Neurological: Mental Status: She is alert. Assessment/Plan Diagnoses and all orders for this visit: Type 2 diabetes mellitus with hyperglycemia, with long-term current use of insulin (CMS/[facility]) ([facility]) (E11.65, Z79.4) (Primary) Assessment & Plan: [...] basis. She will follow up with high density talc coater operator if she gets . Orders: - POCT glucose - POCT hemoglobin A1c VIORAL HEALTH AIDE documented in this encounter Miscellaneous Notes * Assessment & Plan Note - Ophelia Ashraf MD - 04/14/2023 10:10 AM BEHAVIORAL HEALTH AIDE Associated Problem(s): Type 2 diabetes mellitus without complication, without long-term current useof insulin (CMS/HCC) ([facility]) Diagnosed in 2019 Started insulin in [...] basis. She will follow up with high density talc coater operator if she gets . VIORAL HEALTH AIDE VIORAL HEALTH AIDE VIORAL HEALTH AIDE documented in this encounter Plan of Treatment Not on file documented as of this encounter Procedures Procedure Name Priority Date/Time Associated Diagnosis Comments POCT HEMOGLOBIN A1C Routine 04/14/2023 9 :52 AM BEHAVIORAL HEALTH AIDE Type 2 diabetes mellitus with hyperglycemia, with long-term current use of insulin ([facility]) ([facility]) POCT GLUCOSE Routine 04/14/2023 9:52 AM BEHAVIORAL HEALTH AIDE Type 2 diabetes mellitus with hyperglycemia, with long-term current use of insulin ([facility]) ([facility]) documented in this encounter Results * POCT hemoglobin A1c (04/14/2023 9:52 AM BEHAVIORAL HEALTH AIDE) Hemoglobin A1C, POC 6.8 % Blood 04/14/2023 9:52 AM BEHAVIORAL HEALTH AIDE Ophelia Ashraf MD POINT OF CARE TEST ORDERABLES Final Result * POCT glucose (04/14/2023 9:52 AM BEHAVIORAL HEALTH AIDE) Glucose Blood, POC 169 mg/dL Blood 04/14/2023 9:52 AM BEHAVIORAL HEALTH AIDE Ophelia Ashrfa MD POINT OF CARE TEST ORDERABLES Final Result documented in this encounter Visit Diagnoses Diagnosis Type 2 diabetes mellitus with hyperglycemia, with long-term current use of insulin (HCC)- Primary documented in this encounter Discontinued Medications Medication Sig Discontinue Reason Start Date End Da te escitalopram (LEXAPRO) 20 mg tablet TAKE 1 TABLET BY MOUTH IN THE MORNING WITH FOOD 03/11/2022 04/14/2023 ARIPiprazole (ABILIFY) 5 mg tablet Take 2 tablets (10 mg total) by mouth every morning 02/19/2021 04/14/2023 ARIPiprazole (ABILIFY) 10 mg tablet Take 1 tablet (10 mg total) by mouth nightly at bedtime. 07/01/2022 04/14/2023 documented as of this encounter Historical Medications * This list may reflect changes made after this encounter. QUEtiapine (SEROquel) 100 mg tablet Take 1 tablet (100 mg total) by mouth nightly 07/14/2023 M- Plus 27 mg iron- 1 mg tablet Take 1 tablet by mouth daily 03/26/2023 02/25/2024 lamoTRIgine (LaMICtal) 25 mg tablet Take 1 tablet (25 mg total) by mouth 2 (two) times a day 07/14/[address] (CYMBALTA) 30 mg capsule Take 1 capsule every day by oral route. 02/25/2024 added in this encounter Additional Health Concerns Infection Onset Date Last Indicated Resolved Time COVID19 04/10/2023 04/10/2023 04/20/2023 3:05 AM BEHAVIORAL HEALTH AIDE documented as of this encounter Care Teams Dust Brush Assembler Relationship Specialty Start Date End Date Jessica Navarro NP [address] [place] [address] PCP - General 08/23/20 documented as of this encounter
--- OUTSIDE RECORDS SUMMARY | 2024-04-14 18:32 | XMS_ITS | Encounter Summary ---
Author Organization [facility] Address [address] [address] Care Team Providers Care Car Repair Supervisor Name Role Phone Jessica Navarro NP Primary Care Provider Reason for Visit * Diagnostic Imaging (Routine) - Closed Specialty Diagnoses / Procedures Referred By Jonas reeves Referred To Contact Diagnoses Right wrist pain Procedures XR Wrist Right 1 View Topher Dong PA [address] [place] [address] [address] [place] [address] Phone: tel: fax: [facility] Referral ID Status Reason Start Date Expiration Date Visits Re quested Visits Authorized [id number] Closed 07/02/2022 08/01/2023 1 1 Encounter Details Date Type Department Care Team (Late st Contact Info) Description 07/02/2022 8:30 AM LABORER TREE TAPPING Ancillary Procedure [facility] Medical [facility] Imaging at [address] [phone] Social History Tobacco Use Types Packs/Day Years [...] 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 us Topher BARKER IMG XR PROCEDURES Final Res ult documented in this encounter Visit Diagnoses Not on filedocumented in this encounter Care Teams Car Repair Supervisor Relationship Specialty Start Date End Date Jessica Navarro NP [address] [place] [address] PCP - General 08/23/20 documented as of this encounter
--- OUTSIDE RECORDS SUMMARY | 2024-04-14 18:32 | XMS_ITS | Encounter Summary ---
Author Organization [facility] Healthcare Address [address] [place] [address] Care Team Providers Care Home Health Billing Specialist Name Role Phone Melanie, Jessica Pinto NP Primary Care Provider + [phone] Ophelia Ashraf MD Unavailable [phone] Encounter Details Date Type Department Care Team (Late st Contact Info) Description 05/06/2023 Telephone [facility] Orthopedics and Sports Medicine [address] [place] [phone] Yefri Burgess MD [address] [place] [address] [address] [address] Social History Tobacco Use Types Packs/Day Years [...] 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 Clearance scanned into media. STITCH TUNNEL ELASTIC OPERATOR * Telephone Encounter - Alejandra Rico MA - 05/08/2023 2:19 PM LOCKSTITCH TUNNEL ELASTIC OPERATOR Faxed blank clearance form to Jessica Navarro' office. Called and spoke with their office and informedthem unfortunately we can not accept the copy they had faxed us and requested that Jessica signs the new copy I faxed. They are getting a message back and will have that signed and faxed back. STITCH TUNNEL ELASTIC OPERATOR * Telephone Encounter - Berna Spicer - 05/06/2023 2:51 PM CST Jessica storden office called to say she this is Marleni' signature on the scanned paperwork that has Dr. Ashraf name at the top. If you need anything else , please call Jessica's office. STITCH TUNNEL ELASTIC OPERATOR * Telephone Encounter - Berna Spicer - 05/06/2023 1:55 PM CST I called De Jessica's office and informed them that I received a copy of Dr. Ashraf clearance rather than a clearance from Jessica Navarro office. STITCH TUNNEL ELASTIC OPERATOR * Telephone Encounter - Berna Spicer - 05/06/2023 1:35 PM CST Clearance from Dr. Radford office is scanned into digital media director STITCH TUNNEL ELASTIC OPERATOR documented in this encounter Plan of Treatment Not on file documented as of this encounter Visit Diagnoses Not on filedocumented in this encounter Additional Health Concerns Infection Onset Date Last Indicated Resolved Time COVID: Recovered Comment:Added based on recent COVID infection. 04/20/2023 05/04/2023 07/19/2023 3:05 AM C DT documented as of this encounter Care Teams Home Health Billing Specialist Relationship Specialty Start Date End Date Navarro, Jessica Pinto NP [address] [place] [address] PCP - General 08/23/20 Ophelia Ashraf MD [address] [facility] [address] [place] [address] Consulting Physician Endocrinology 04/15/23 documented as of this encounter
--- OUTSIDE RECORDS SUMMARY | 2024-04-14 18:32 | XMS_ITS | Encounter Summary ---
Author Organization [facility] Address [address] [facility] [address] [place] [address] Care Team Providers Care Retail Pharmacy Merchandiser Name Role Phone Jessica Navarro NP Primary Care Provider [phone] Encounter Details Date Type Department Care Team (Late st Contact Info) Description 05/29/2022 Telephone [facility] Diabetes Endocrine Care of [address] [place] [phone] Michaela Block Social History Tobacco Use Types Packs/Day Years [...] encounter Miscellaneous Notes * Telephone Encounter - Aleksandra Wei MA - 05/29/2022 4:21 PM CST Called patient and she requested to move appt. Up after speaking to her PCP. [employer] * Telephone Encounter - Michaela Block - 05/29/2022 3:56 PM CST Pt would like someone to call her to discuss her blood sugars. Please call pt at [phone] [employer] documented in this encounter Plan of Treatment Not on file documented as of this encounter Visit Diagnoses Not on filedocumented in this encounter Care Teams Retail Pharmacy Merchandiser Relationship Specialty Start Date End Date Navarro, Jessica Pinto NP [address] [place] [address] PCP - General 08/23/20 documented as of this encounter
--- OUTSIDE RECORDS SUMMARY | 2024-04-14 18:32 | XMS_ITS | Encounter Summary ---
Author Organization [facility] Group Address [address] [address] Care Team Providers Care Industrial Psychology Professor Name Role Phone Jessica Navarro NP Primary Care Provider + [phone] Ophelia Ashraf MD Unavailable [phone] Reason for Visit * Reason Onset Date Comments Surgery Clearance 08/18/2022 Encounter Details Date Type Department Care Team (Late st Contact Info) Description 08/18/[address] 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 Clearance scanned into media. ON TIER * Telephone Encounter - Ting Bearden ATC - 08/18/2022 9:05 AM CDT Surgery Clearance Checklist: [x] PCP: Jessica Navarro (may be getting different PCP) [] Cardiology: [x] Endocrinology: [facility] [] Pulmonology: [] Neurology: [] Other: Blood Thinner: [] Yes Name of medication: [x] No Is patient a Diabetic: [x] Yes [] No Preferred Outpatient Physical Therapy location: [facility] Reviewed with patient surgery clearance requirements that forms must be returned to our office no later than 72 hours prior to surgery. Later than 72 hours may cause patients surgery to be cancelled and/or rescheduled. Reviewed with patient that appointments with the above provider should be scheduled in a timely manner, and recommend appointments be made no later than 3 weeks prior to surgery. For Total Arthoplasty Surgery: Reviewed with patient labs to be completed prior to surgery, advisedthese must be completed no more than 30 days prior to surgery. Patient was advised to completely these early on in the 30 day window to allow time to address abnormal results if they arise. Labs are to be completed at: [facility] to Handle d/t TBD status. Medications to be discontinued prior to surgery were reviewed with patient, and hand out provided listing when to stop prior to surgery. Patient instructed to contact PCP and/or prescribing provider with questions about when to discontinue prior to surgery. For blood thinners, patient was instructed to speak with prescribing provider about when to discontinue and was advised our office needs documentation on when to stop prior to surgery. This can be completed on the form provided for the patient. Reviewed with patient use of surgical soap prior to surgery. Patient was instructed to use the evening before and the morning of surgery. Advised to not wash hair, face, genital, or rectal area. Patient expressed full understanding of the above in preparation for surgery. Patient was advised to contact our office if any questions or concerns arise prior to surgery. MA/ATC Name: Ting documented in this encounter Plan of Treatment Not on file documented as of this encounter Visit Diagnoses Not on filedocumented in this encounter Additional Health Concerns Infection Onset Date Last Indicated Resolved Time COVID: Suspected 04/10/2023 04/10/2023 04/10/2023 6:00 PM RIBBON TIER COVID19 04/10/2023 04/10/2023 04/20/2023 3:05 AM RIBBON TIER documented as of this encounter Care Teams Industrial Psychology Professor Relationship Specialty Start Date End Date Navarro, Jessica Pinto NP [address] [place] [address] PCP - General 08/23/20 Ophelia Ashraf MD [address] [facility] [address] [place] [address] Consulting Physician Endocrinology 04/15/23 documented as of this encounter
--- OUTSIDE RECORDS SUMMARY | 2024-04-14 18:32 | XMS_ITS | Encounter Summary ---
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 file [...] cough 15 capsule 05/14/2020 3 escitalopram (LEXAPRO) 20 mg tablet TAKE 1 TABLET BY MOUTH IN THE MORNING WITH FOOD 03/11/2022 3 flash glucose scanning reader (FreeStyle Viviane 2 [place]) misc Use to monitor glucose levels, DX E11.65, Z79.4 1 each 05/23/2022 4 flash glucose sensor (FreeStyle Viviane 2 Sensor) kit Use to monitor glucose levels DX E11.65, Z79.4 2 kit 11 05/23/2022 3 fluconazole (DIFLUCAN) 150 mg tablet Take by mouth once 03/21/2022 3 gabapentin (NEURONTIN) 300 mg capsule TAKE 2 CAPSULES BY MOUTH AT BEDTIME 60 capsule 1 05/14/2021 3 ibuprofen (ADVIL,MOTRIN) 800 mg tabletIndications:Pa in [...] BY MOUTH TWICE DAILY 360 tablet 1 05/26/2022 3 nicotine (NICODERM CQ) 14 mg APPLY 1 PATCH EVERY DAY 04/30/2022 3 nitrofurantoin monohydrate (MACROBID) 100 mg capsule Take 1 capsule (100 mg total) by mouth 2 (two) times a day 10 capsule 10/30/2020 3 ondansetron ODT (ZOFRAN-ODT) 4 mg disintegrating tablet Dissolve 1 tablet oral every 4 hours as needed for nausea or vomiting. 15 tablet 06/12/2021 3 OneTouch Delica Plus Lancet 33 gauge misc 03/27/202201/27 4 OneTouch Ultra Test strip Use to check sugars 3 x per day 100 strip 5 05/12/2022 4 tiZANidine (ZANAFLEX) 4 mg tablet Take 1 tablet (4 mg total) by mouth every 6 (six) hours as needed 01/21/2021 4 TRUEplus Pen Needle 32 gauge x needle Use 3 per day for insulin pen 100 each 5 05/12/2022 4 valACYclovir (VALTREX) 500 mg tablet TAKE 1 TABLET BY MOUTH TWICE DAILY FOR 3 DAYS 11/01/2020 3 WesTab Plus 27 mg iron- 1 mg tablet Take 1 tablet by mouth daily 04/30/2022 3 documented as of this encounter Discharge Disposition Disposition Code Departure Means Destination Discharge to home or self care documented in this encounter Plan of Treatment Not on file documented as of this encounter Procedures Procedure Name Priority Date/Time Associated Diagnosis Comments HEMOGLOBIN A1C Routine 07/02/2022 9:30 AM SHIPPING SUPPORT CLERK Pre-op testing documented in this encounter Results * (ABNORMAL) Hemoglobin A1c (07/02/2022 9:30 AM SHIPPING SUPPORT CLERK) Hgb A1C 8.1(H) 4.0 - 5.6 % ILDA FIERRO Estimated Average Glucose 186 mg/dL ILDA FIERRO Comment: The ADA recommends reporting an estimated Average Glucose (eAG) with all Hemoglobin A1c results using the equation derived from a study of 507 normal and diabetic adults. ??Minority populations were underrepresented and children were not included. ?? (Diabetes Care 31:8086-0002, 2008). ??The eAG is not equivalent to a fasting glucose. Blood 07/02/2022 9:30 AM SHIPPING SUPPORT CLERK 07/02/2022 4:43 PM SHIPPING SUPPORT CLERK Narrative ILDA FIERRO - 07/02/2022 5:19 PM SHIPPING SUPPORT CLERK Pre-op testing [facility]her [facility] BLOOD ORDERABLES Final Result ILDA [id number] [address] [place] [address] documented in this encounter Visit Diagnoses Diagnosis Pre-op testing Unspecified pre-operative examination documented in this encounter Care Teams Lastex Thread Winder Relationship Specialty Start Date End Date Navarro, Jessica Pinto NP [address] [place] [address] PCP - General 08/23/20 documented as of this encounter
--- OUTSIDE RECORDS SUMMARY | 2024-04-14 18:32 | XMS_ITS | Encounter Summary ---
Author Organization [facility] Address [address] [facility] [address] [place] [address] Phone Care Team Providers Care Butt Welder Name Role Phone Navarro, Jessica Pinto NP Primary Care Provider + [phone] Reason for Referral * Consultation (Routine) - Closed Specialty Diagnoses / Procedures Referred By Jonas reeves Referred To Contact Plastic Surgery Diagnoses Angie Arita MD [address] [facility] [facility] [phone] [place] [address] Phone: tel: fax: [facility] (All Locations) Referral ID Status Reason Start Date Expiration Date V isits Requested Visits Authorized [id number] Closed Specialty Services Required 12/25/2021 01/24/2023 99 99 Question Answer Please select the performing region: [facility] (All Locations) [[id number]] # of visits: 1 Reason for Visit * Reason Comments New Patient * Consultation (Routine) - Closed Specialty Diagnoses / Procedures Referred By Jonas reeves Referred To Contact Plastic Surgery Diagnoses Angie Arita MD [address] [facility] [place] [phone] [place] [address] Phone: tel: fax: [facility] (All Locations) Referral ID Status Reason Start Date Expiration Date V isits Requested Visits Authorized [id number] Closed Specialty Services Required 12/25/2021 01/24/2023 99 99 Encounter Details Date Type Department Care Team (Late st Contact Info) Description 04/14/2022 3:30 PM LAUNDRY ASSISTANT Office Visit [facility] Surgery [address] [place] [address] [address] [place] [address] Angie Randhawa MD [address] [facility] [phone] [place] [address] Macromastia (Primary Dx) Social History Tobacco Use Types [...] - Inhaled Oxygen Concentration - - Weight 81.5 kg (179 lb 9.6 oz) 04/14/2022 3:41 P M LAUNDRY ASSISTANT Height 160 cm (5' 3 ) 04/14/2022 3:41 PM LAUNDRY ASSISTANT Body Mass Index 31.81 04/14/2022 3:41 PM LAUNDRY ASSISTANT documented in this encounter Progress Notes * Angie Randhawa MD - 04/14/2022 3:30 PM CST Images from the original note were not included. Plastic & Reconstructive Surgery Breast Reduction Consult Patient: Lilli Santos : 1995 Date of Service: 04/14/2022 PCP: Jessica Navarro NP Referring Provider: Jessica Navarro NP Chief Complaint: Neck, back, and shoulder pain History of Present Illness: Lilli Santos is a 27 y.o. female who presents with bilateral symptomatic macromastia. Neck, upper back, and shoulder pain Ongoing for 3-4 yrs Pain average 7.5/10 Throbbing, pulling sensation, as well as a stretching sharp pain Also with irritation along sides Uses NSAIDs Has had physical therapy on back - minimal relief Has not been to a chiropracter Has had rashes beneath breasts - required prescription topical medication; also uses hot rag to help out +YEPEZ, no vision changes No N/T Has had large breasts since puberty Had BBR just prior to 16th birthday - [facility] at the time; No major issues from surgery - nipples remain sensitive Currently DD to DDD - needs to wear sports bras +shoulder grooving No masses in breasts No personal or family history of breast cancer No nipple discharge Does not have kids - no current plans +tob - 1/2 ppd +DM - A1c 9.6 in Nov - has been to ER multiplet imes in last few months for elevated sugar - never in DKA; seeing Shoe Patternmaker in April No BT Of note, has lost 30-40 lbs without trying. States appetite is poor. 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 [place] Past Medical History: Diagnosis Date Anxiety Asthma Depression GERD (gastroesophageal reflux disease) Thyroid disease Past Surgical History: Procedure Laterality Date ANKLE SURGERY BREAST SURGERY breast reduction FL FLUORO GUIDED LUMBAR PUNCTURE Right 03/01/2021 FL FLUORO GUIDED LUMBAR PUNCTURE Right 04/08/2021 THYROID SURGERY Family History Problem Relation Age of Onset Heart disease Other Hypertension Other Cancer Other Arthritis Other Diabetes Other No Known Problems Mother No Known Problems Father Social History Tobacco Use Smoking status: Former Packs/day: 1.00 Types: Cigarettes Smokeless tobacco: Never Substance and Sexual Activity Drug use: Never Sexual activity: Not Currently Alcohol Use: Not on file Allergies Allergen Reactions Mena Shortness of breath Current Outpatient Medications on File Prior to Visit Medication Sig Dispense Refill ARIPiprazole (ABILIFY) 5 mg tablet Take 5 mg by mouth every morning escitalopram (LEXAPRO) 20 mg tablet TAKE 1 TABLET BY MOUTH IN THE MORNING WITH FOOD fluconazole (DIFLUCAN) 150 mg tablet Take by mouth once gabapentin (NEURONTIN) 300 mg capsule TAKE 2 CAPSULES BY MOUTH AT BEDTIME 60 capsule 1 hydrOXYzine (ATARAX) 25 mg tablet Take 25 mg by mouth 3 (three) times a day as needed ibuprofen (ADVIL,MOTRIN) 800 mg tablet Take 1 tablet (800 mg total) by mouth every 8 (eight) hours as needed for pain 21 tablet 0 LANTUS 100 unit/mL (3 mL) pen for injection ADMINISTER 10 UNITS UNDER THE SKIN EVERY DAY AT BEDTIME ondansetron ODT (ZOFRAN-ODT) 4 mg disintegrating tablet Dissolve 1 tablet oral every 4 hours as needed for nausea or vomiting. 15 tablet 0 OneTouch Delica Plus Lancet 33 gauge misc USE TO CHECK BLOOD SUGAR 1 TO 2 TIMES DAILY OneTouch Ultra Test strip CHECK BLOOD SUGAR 1-2 TIMES DAILY tiZANidine (ZANAFLEX) 4 mg tablet Take 4 mg by mouth every 6 (six) hours as needed TRUEplus Pen Needle 32 gauge x 5/32 needle USE DIRECTED FOR ONCE DAILY INJECTION UNABLE TO FIND Ambilify 10mg albuterol HFA (PROVENTIL HFA,VENTOLIN HFA,PROAIR HFA) 90 mcg/actuation inhaler Inhale 2 puffs every4 (four) hours as needed for wheezing 1 Inhaler 0 benzonatate (TESSALON) 100 mg capsule Take 1 capsule (100 mg total) by mouth 3 (three) times a day as needed for cough (Patient not taking: Reported on 02/20/2021) 15 capsule 0 metFORMIN (GLUCOPHAGE) 500 mg tablet Take 1 tablet (500 mg total) by mouth 2 (two) times a day withmeals 60 tablet 0 nitrofurantoin monohydrate (MACROBID) 100 mg capsule Take 1 capsule (100 mg total) by mouth 2 (two)times a day (Patient not taking: Reported on 02/20/2021) 10 capsule 0 valACYclovir (VALTREX) 500 mg tablet TAKE 1 TABLET BY MOUTH TWICE DAILY FOR 3 DAYS (Patient not taking: No sig reported) [DISCONTINUED] escitalopram (LEXAPRO) 10 mg tablet Take 10 mg by mouth daily No current facility-administered medications on file prior to visit. Review of Systems: A full review of system was obtained, reviewed, and scanned into the chart. Physical Exam: Vitals Ht 160 cm (5' 3 ) Wt 81.5 kg (179 lb 9.6 oz) BMI 31.81 kg/m?? Gen: NAD, A&O x3 Pulm: unlabored CV: regular rate Breast: right side larger; no masses; prior scott pattern incision noted; no nipple discharge; no stigmata of rashes; mild shoulder grooving. Left Nipple less sensitive compared to right Measurements below in cm: Right Breast Left Breast SN to Nipple: 27 26 Nipple to IMF: 15 14 Subaxillary Rolls: ++ ++ Labs / Imaging / Biopsies reviewed Photographs: Assessment and Plan: Lilli Santos is a 27 y.o. female who presents with bilateral sympomatic macromastia. She also has uncontrolled diabetes. I discussed with her the nature of [...] overall better position. Sheverbalizes understanding of this. She would like to be Smaller than large Counseled on smoking cessation. She is meeting with endocrinology in Apr - follow up in 3 mo to reassess weight and A1c to try and optimize perioperative conditions Will also check on weight at that time. Follow up: 3 months Restrictions: none I spent 30 minutes on this patient encounter which included review of medical records. Over half the time was spent with the patient face to face discussing the treatment plan, counseling and coordinating care. Angie Randhawa MD 04/14/2022 3:45 PM This document was transcribed using voice recognition software without a human registration scheduling specialist. Itmay contain typographical, grammatical, and/or syntax errors. DRY ASSISTANT documented in this encounter Plan of Treatment Scheduled Referrals Name Type Priority Associated Diagnoses Order Schedule Ambulatory referral to Plastic Surgery Outpatient Referral Routine Macromastia Ordered: 12/25/2021 documented as of this encounter Visit Diagnoses Diagnosis Macromastia- Primary Hypertrophy of breast documented in this encounter Discontinued Medications Medication Sig Discontinue Reason Start Date End Da te escitalopram (LEXAPRO) 10 mg tablet Take 10 mg by mouth daily 04/14/2022 documented as of this encounter Historical Medications * This list may reflect changes made after this encounter. escitalopram (LEXAPRO) 20 mg tablet TAKE 1 TABLET BY MOUTH IN THE MORNING WITH FOOD 03/11/2022 3 TRUEplus Pen Needle 32 gauge x 32 needle USE DIRECTED FOR ONCE DAILY INJECTION 03/27/2022 3 OneTouch Delica Plus Lancet 33 gauge misc 03/27/2022 4 LANTUS 100 unit/mL (3 mL) pen for injection 20 Units daily 03/27/2022 4 fluconazole (DIFLUCAN) 150 mg tablet Take by mouth once 03/21/2022 3 added in this encounter Care Teams Butt Welder Relationship Specialty Start Date End Date Jessica Navarro NP [address] [place] [address] PCP - General 08/23/20 documented as of this encounter
--- OUTSIDE RECORDS SUMMARY | 2024-04-14 18:32 | XMS_ITS | Encounter Summary ---
Author Organization [facility] Healthcare Address [address] [place] [address] Care Team Providers Care Legal Project Manager Name Role Phone Jessica Navarro NP Primary Care Provider Reason for Visit * Reason Comments Hypoglycemia BG 47 at workPatient reports her sugars have been low the last two days so she hasn't been taking her insulin. A&Ox4 on arrival Encounter Details Date Type Department Care Team (Late st Contact Info) Description 04/10/2023 4:04 PM [employer] - 04/10/2023 7:30 PM [employer] Emergency [facility] Emergency Department [address] [place] [address] Hypoglycemia (Primary Dx); Other migraine without status migrainosus, not intractable Discharge Disposition: Discharge to home or self [...] Industry Job Start Date Job End Date [employer] Not on file N ot on file Not on file documented as of this encounter Last Filed Vital Signs Vital Sign Reading Time Taken Comments Blood Pressure 145/91 04/10/2023 7:30 PM [employer] Pulse 71 04/10/2023 7:30 PM [employer] Temperature 36.9 ??C (98.4 ??F) 04/10/2023 3:49 PM CS T Respiratory Rate 16 04/10/2023 7:30 PM [employer] Oxygen Saturation 100% 04/10/2023 7:30 PM [employer] Inhaled Oxygen Concentration - - Weight 81.6 kg (180 lb) 04/10/2023 1:16 PM [employer] Height 160 cm (5' 3 ) 04/10/2023 1:16 PM [employer] Body Mass Index 31.89 04/10/2023 1:16 PM [employer] documented in this encounter Discharge Instructions * Discharge Instructions* Andrei Ambrocio MD - 04/10/2023 7:10 PM [employer] You were seen in the emergency department for hypoglycemia and headache. As we discussed, we think you are having a migraine headache and improved with medicine that treats migraine headaches. As we discussed as well, please do not take any additional insulin or your metformin until you were seen by her primary doctor. Please call to make that appointment at your earliest convenience at business hours. You can also continue to monitor your glucose so your primary doctor knows if you need any dose adjustments. [employer] documented in this encounter Medications at Time [...] total) by mouth every morning 02/19/2021 3 escitalopram (LEXAPRO) 20 mg tablet TAKE 1 TABLET BY MOUTH IN THE MORNING WITH FOOD 03/11/2022 3 flash glucose scanning reader (FreeStyle Viviane 2 [place]) [facility] Use to monitor glucose levels, DX E11.65, Z79.4 1 each 05/23/2022 4 flash glucose sensor (FreeStyle Viviane 2 Sensor) kit Use to monitor glucose levels, Change sensor every 14 days. DX E11.65, Z79.4 2 kit 4 02/13/2023 4 ibuprofen (ADVIL,MOTRIN) 800 mg tabletIndications:Pa in Take [...] 4 OneTouch Delica Plus Lancet 33 gauge [facility] 03/27/202201/27 4 OneTouch Ultra Test strip Use [...] documented in this encounter ED Notes * Andrei Ambrocio MD - 04/10/2023 7:08 PM CST HPI Chief Complaint Patient presents with Hypoglycemia BG 47 at workPatient reports her sugars have been low the last two days so she hasn't been taking her insulin. A&Ox4 on arrival 28-year-old female here in the emergency department with headache and episode of hypoglycemia. Patient has been feeling waxing and waning migraine headache for the past week. For the past 2 days she has been feeling hypoglycemic . She has been measuring blood glucoses as low as 70. She is stopped taking her insulin both short and long-acting insulin for the past 48 hours. Despite this, she felt very sick while at work today and called 911 and EMS measured her blood glucose to be in the 40s. She has had no other sick symptoms apart from a recent COVID infection about a week and a half ago. Noother nausea, vomiting, diarrhea. She does not take any sulfonylurea drugs. She does have a chart history of taking Trulicity, which she denies currently taking. 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 Acquired [...] LUMBAR PUNCTURE Right 04/08/2021 THYROID SURGERY Right Family History Problem Relation Age of Onset Heart disease Other Hypertension Other Cancer Other Arthritis Other Diabetes Other No Known Problems Mother No Known Problems Father Social History Tobacco Use Smoking status: Every Day Types: E-cigarettes Smokeless tobacco: Never Vaping Use Vaping Use: Every day Substances: Nicotine Substance and Sexual Activity Alcohol use: Never Drug use: Never Sexual activity: Not Currently Social History Social History Narrative Not on file Review of Systems Review of Systems All other systems reviewed and are negative. Physical Exam ED Triage Vitals Temp Pulse Resp BP SpO2 04/10/23 1316 04/10/23 1316 04/10/23 1322 04/10/23 1316 04/10/23 1316 36.9 ??C (98.5 ??F) 91 16 160/90 100 % Temp src Heart Rate Source Patient Position BP Location FiO2 (%) 04/10/23 1316 -- 04/10/23 1930 -- -- Oral Sitting Height Height Method Weight Weight Method 04/10/23 1316 04/10/23 1316 04/10/23 1316 04/10/23 1316 1.6 m (5' 3 ) Stated 81.6 [...] soft. Tenderness: There is no abdominal tenderness. Musculoskeletal: General: No swelling. Cervical back: Neck supple. Skin: General: Skin is warm and dry. Capillary Refill: Capillary refill takes less than 2 seconds. Neurological: Mental Status: She is alert. Psychiatric: Mood and Affect: Mood normal. [facility] Medical Decision Making 28-year-old female here with headache and hypoglycemia. Unclear why the patient would have hypoglycemia in the setting of not taking her insulin. Initial workup is unremarkable apart from a positive COVID test, which the patient already knew she had previously tested positive for COVID. She is still eating normal meals. And has no other new sick symptoms. Will plan to refer back to her primary doc ivania with the instruction until then to continue not taking her insulin or her metformin and to continue measuring her glucoses with meals in order to report back to her primary physician if she needsa dose adjustment. With regard to her headache, the patient states that she is having throbbing pain in her head that is worse when looking at the lights. She has not had a history of migraines, but does have the occasional headache. Neurologically intact on my physical exam. Plan for treatment with migraine medications. Overall anticipate discharge. In consideration of the above differential diagnosis, the following orders were placed while the patient was in the Emergency Department. See ED course for pertinent results and imaging interpretation. Orders Placed This Encounter Respiratory pathogen panel Nasopharyngeal Urinalysis reflex to microscopic and culture Urine CBC with auto differential Basic metabolic panel Differential, auto eGFR DO NOT UNCHECK - ED frame cleaner Standing Order: Glucose Control Initiate droplet isolation POCT hCG, urine ECG 12 lead The patient received the following medications: Medications droPERidol (INAPSINE) injection 1.25 mg (1.25 mg intravenous Given 04/10/231705) acetaminophen (TYLENOL) tablet 1,000 mg (1,000 mg oral Given 04/10/231705) ketorolac (TORADOL) 30 mg/mL (1 mL) injection 15 mg (15 mg intravenous Given 04/10/231705) Lactated Ringer's (LR) bolus 1,000 mL (0 mL intravenous Stopped 04/10/231753) diphenhydrAMINE (BENADRYL) tab/cap 25 mg (25 mg oral Given 04/10/231705) Amount and/or Complexity of Data Reviewed Labs: ordered. ECG/medicine tests: independent interpretation performed. Risk OTC drugs. Prescription drug management. Attending Summary of Care Hypoglycemia Other migraine without status migrainosus, not intractable Andrei Ambrocio MD Resident 04/10/232153 Cosigned by Ehsan Lopez MD at 04/10/2023 10:20 PM [employer] T [employer]EMAN T [employer] Associated attestation - Ehsan Lopez MD - 04/10/2023 10:20 PM [employer] I have seen and examined the patient on 04/10/2023. I agree with the findings and plan of care as documented in the resident's note. * Nela Taylor RN - 04/10/2023 1:16 PM CST Patient presents with low glucose for the past few days, has not been taking her insulin due to this. Endorses headaches, diarrhea, dizziness, soreness in her chest. This morning while at work was having symptoms, EMS was called due to the symptoms and found her sugar to be 47. Was given oral glucose bringing her BS to 197, on arrival to triage she was 102. [employer] documented in this encounter Miscellaneous Notes * ED Procedure Note - Federico Clements MD - 04/10/2023 2:27 PM CSTAssociated Order(s): ECG 12 lead Procedure ECG 12 lead Date/Time: 04/10/2023 2:27 PM Performed by: Federico Clements MD Authorized by: Federico Clements MD Rate: ECG rate: 85 ECG rate assessment: normal Rhythm: Rhythm: sinus rhythm Ectopy: Ectopy: none QRS: QRS axis: Normal QRS intervals: Normal Conduction: Conduction: normal ST segments: ST segments: Normal T waves: T waves: normal Previous ECG: Previous ECG: Unavailable Interpretation: Interpretation: normal Recommended Follow-up: Recommended follow up: further workup in the ED Comments: Federico Page MD 04/10/23 1428 [employer] documented in this encounter Plan of Treatment Not on file documented as of this encounter Procedures Procedure Name Priority Date/Time Associated Diagnosis Comments POCT GLUCOSE DEVICE Routine 04/10/2023 7 :27 PM [employer] POCT HCG, URINE Routine 04/10/2023 5:54 PM [employer] URINALYSIS AND REFLEX TO MICROSCOPIC AND CULTURE Routine 04/10/2023 5:17 PM [employer] EGFR Routine 04/10/2023 4:50 PM [employer] DIFFERENTIAL AUTO STAT 04/10/2023 4: 50 PM [employer] RESPIRATORY PATHOGEN PANEL Routine 04/10/2023 4:50 PM [employer] POCT GLUCOSE DEVICE Routine 04/10/2023 4 :50 PM [employer] CBC WITH AUTO DIFFERENTIAL STAT 04/10/2023 4:50 PM [employer] BASIC METABOLIC PANEL Routine 04/10/2023 4:50 PM [employer] POCT GLUCOSE DEVICE Routine 04/10/2023 3 :20 PM SHE[employer] ECG 12-LEAD STAT 04/10/2023 2:27 PM [employer] POCT GLUCOSE DEVICE Routine 04/10/2023 1 :19 PM [employer] documented in this encounter Results * POCT glucose (04/10/2023 7:27 PM SHE[employer]) Glucose, POC 125 70 - 199 mg/dL [facility] Blood 04/10/2023 7:27 PM [employer] 04/10/2023 7:27 PM [employer] us Notinfile Unknown LAB POCT ORDERABLES - DEVICE F inal Result [facility] Department [place] [address] * POCT hCG, urine (04/10/2023 5:54 PM [employer]) HCG, ur, POC Negative Negative Lot Number [id number] QC Backgroud Clear Acceptable QC Control Line Acceptable Urine 04/10/2023 5:54 PM [employer] Andrei Ambrocio MD POINT OF CARE TEST ORDERABLES Final Result * Urinalysis reflex to microscopic and culture Urine (04/10/2023 5:17 PM SHE[employer]) Pathologist [facility] Color, ur Yellow Yellow [facility] Clarity, ur Clear Clear [facility] Specific gravity, ur 1.029 1.003 - 1.030 [facility] pH, urine 6.0 [facility] Comment: Interpretive Data ? Urine pH is affected by diet, medications, systemic acid-base disturbances, and renal tubular function. ??pH may affect urinary stone formation. ??For example, urine pH below 6.0 may help reduce the tendency for calcium phosphate stones and pH greater than 6.0 may reduce the tendency for uric acid stone formation. Source: [facility] Paxer Current Interpretive Data was last revised on 2017 Protein, ur ql Trace Negative [facility] Glucose, ur ql Negative Negative [facility] Ketones, ur Trace Negative [facility] Bilirubin, ur Negative Negative [facility] Blood, ur Negative Negative [facility] Urobilinogen, ur <2.0 <2.0 mg/dL [facility] Nitrite, ur Negative Negative [facility] Leukocyte esterase, ur Negative Negative [facility] UA reflex comment Reflex conditions for microscopic UA and culture not met. [facility] Urine 04/10/2023 5:17 PM [employer] 04/10/2023 5:39 PM [employer] Andrei Ambrocio MD LAB MICROBIOLOGY - GENERAL ORDERABLES Final Result [facility] Department [place] [address] * eGFR (04/10/2023 4:50 PM SHE[employer]) Pathologist [facility] eGFR >90 >=60 mL/min/1. 73 m2 [facility] Comment: Interpretive Data Reference Interval Normal ?>/= [...] interpretive data was last reviewed 2021. Blood 04/10/2023 4:50 PM [employer] 04/10/2023 5:09 PM [employer] us Andrei Ambrocio MD LAB BLOOD ORDERABLE S Final Result [facility] Department [place] [address] * (ABNORMAL) Differential, auto (04/10/2023 4:50 PM [employer]) Neutrophil abs 6.9(H) 1.5 - 6.5 K/cumm [facility] Imm gran abs 0.0 0.0 - 0.1 K/cumm [facility] Lymphocyte abs 3.6(H) 0.8 - 3.3 K/cumm [facility] Monocyte abs 0.5 0.2 - 0.8 K/cumm [facility] Eosinophil abs 0.2 0.0 - 0.5 K/cumm [facility] Basophil abs 0.1 0.0 - 0.1 K/cumm [facility] Neutrophil pct 61.0 % [facility] Comment: Interpretive Data Percent cell count reference ranges are not reported, since discordance with absolute values may lead to misinterpretation of CBC data. Current Interpretive Data was last revised on 2017. Imm gran pct 0.4 % [facility] Comment: Interpretive Data Percent cell count reference ranges are not reported, since discordance with absolute values may lead to misinterpretation of CBC data. Current Interpretive Data was last revised on 2017. Lymphocyte pct 32.1 % [facility] Comment: Interpretive Data Percent cell count reference ranges are not reported, since discordance with absolute values may lead to misinterpretation of CBC data. Current Interpretive Data was last revised on 2017. Monocyte pct 4.8 % [facility] Comment: Interpretive Data Percent cell count reference ranges are not reported, since discordance with absolute values may lead to misinterpretation of CBC data. Current Interpretive Data was last revised on 2017. Eosinophil pct 1.3 % [facility] Comment: Interpretive Data Percent cell count reference ranges are not reported, since discordance with absolute values may lead to misinterpretation of CBC data. Current Interpretive Data was last revised on 2017. Basophil pct 0.4 % [facility] Comment: Interpretive Data Percent cell count reference ranges are not reported, since discordance with absolute values may lead to misinterpretation of CBC data. Current Interpretive Data was last revised on 2017. Blood 04/10/2023 4:50 PM [employer] 04/10/2023 5:09 PM [employer] us Andrei Ambrocio MD LAB BLOOD ORDERABLE S Final Result [facility] Department [place] [address] * POCT glucose (04/10/2023 4:50 PM SHE[employer]) Glucose, POC 75 70 - 199 mg/dL [facility] Blood 04/10/2023 4:50 PM [employer] 04/10/2023 4:50 PM [employer] us Notinfile Unknown LAB POCT ORDERABLES - DEVICE F inal Result [facility] Department [place] [address] * (ABNORMAL) Respiratory pathogen panel Nasopharyngeal (04/10/2023 4:50 PM SHE[employer]) [facility] Influenza A RNA Not Detected Not Detected [facility] Influenza B RNA Not Detected Not Detected [facility] RSV RNA Not Detected Not Detected [facility] COVID-19 RNA Detected(A) Not Detected [facility] Coronavirus 229E RNA Not Detected Not Detected [facility] Coronavirus HKU1 RNA Not Detected Not Detected [facility] Coronavirus NL63 RNA Not Detected Not Detected [facility] Coronavirus OC43 RNA Not Detected Not Detected [facility] Adenovirus DNA Not Detected Not Detected [facility] Metapneumovirus RNA Not Detected Not Detected [facility] Rhinovirus/Enterov irus RNA Not Detected Not Detected [facility] Parainfluenza 1 RNA Not Detected Not Detected [facility] Parainfluenza 2 RNA Not Detected Not Detected [facility] Parainfluenza 3 RNA Not Detected Not Detected [facility] Parainfluenza 4 RNA Not Detected Not Detected [facility] B. pertussis DNA Not Detected Not Detected [facility] B. parapertussis DNA Not Detected Not Detected [facility] C. pneumoniae DNA Not Detected Not Detected [facility] M. pneumoniae DNA Not Detected Not Detected [facility] Nasopharyngeal 04/10/2023 4: 50 PM [employer] 04/10/2023 5:05 PM [employer] Narrative [facility] - 04/10/2023 6:00 PM [employer] Is the Patient experiencing symptoms consistent with COVID?->Yes Date of Symptom Onset->04/07/23 Reason for testing?->Bed placement or semi-private room Surveillance testing for transplant patient?->No ??Interpretive Data The [employer] FilmArray Respiratory Panel (RP2.1) assay is a multiplexed real-time PCR based nucleic acid test capable of simultaneous qualitative detection and identification of multiple respiratory viral and bacterial nucleic acids, including SARS Coronavirus 2 (the causative agent of COVID-19). The following bacteria, viruses and virus subtypes can be identified using the FilmArray RP2.1 assay: Bordetella pertussis, Bordetella parapertussis, Chlamydia pneumoniae, Mycoplasma pneumoniae, Adenovirus, SARS Coronavirus 2, seasonal coronaviruses (Coronavirus HKU1, Coronavirus NL63, Coronavirus 229E, and Coronavirus OC43), Influenza A, Influenza A subtype H1, Influenza A subtype H3, Influenza A subtype 2009 H1, Influenza B, Metapneumovirus, Parainfluenza 1, Parainfluenza 2, Parainfluenza 3, Parainfluenza 4, RSV, Rhinovirus/Enterovirus. Due to the genetic similarity between human Rhinovirus and Enterovirus, the FilmArray RP2.1 assay cannot reliably differentiate them. Coronavirus OC43 may cross-react with some isolates of Coronavirus HKU1. ??A dual positive result may be due to cross-reactivity or may indicate a co-infection. The detection and identification of specific viral and bacterial nucleic acids from individuals exhibiting signs and symptoms of a respiratory infection aids in the diagnosis of respiratory infection if used in conjunction with other clinical and epidemiological information. ??The results of this test should not be used as the sole basis for diagnosis, treatment, or other management decisions. ??Negative results in the setting of a respiratory illness may be due to infection with pathogens that are not detected by this test. ??Positive results do not rule out infection/co-infection with other organisms. ??The agent(s) detected by the FilmArray RP2.1 may not be the definite cause of disease. ??Additional testing (lab, imaging, etc.) may be necessary when evaluating a patient with possible respiratory tract infection. The FilmArray RP2.1 assay has FDA clearance for testing of LEAF SIZE PICKER swabs. ??The performance of additional specimen types has been assessed by the performing laboratory. ??The performance characteristics of this assay have been determined by [facility]. Current interpretive data was last revised on 22. us Andrei Amrbocio MD LAB MICROBIOLOGY - GENERAL ORDERABLES Final Result [facility] Department [place] [address] * Basic metabolic panel (04/10/2023 4:50 PM [employer]) Sodium 144 135 - 145 mmol/L [facility] Potassium, pl 3.5 3.3 - 4.9 mmol/L [facility] Chloride 103 97 - 110 mmol/L [facility] CO2 29 22 - 32 mmol/L [facility] Anion gap 12 2 - 15 mmol/L [facility] BUN 10 6 - 25 mg/dL [facility] Creatinine 0.81 0.60 - 1.10 mg/dL [facility] Glucose 79 70 - 199 mg/dL [facility] Comment: Interpretive Data Fasting glucose >/= 126 [...] interpretive data was last revised 2022. Calcium 9.6 8.5 - 10.3 mg/dL [facility] Blood 04/10/2023 4:50 PM [employer] 04/10/2023 5:09 PM [employer] Andrei Ambrocio MD LAB BLOOD ORDERABLE S Final Result Performing Organization Address City/[facility]/ZIP Co de Phone Number ILDA [facility] Department [place] [address] * (ABNORMAL) CBC with auto differential (04/10/2023 4:50 PM [employer]) WBC 11.3(H) 3.8 - 9.9 K/cumm [facility] Hgb 13.8 11.9 - 15.5 g/dL [facility] Comment: Interpretive Data A reference range for this assay has not been established for patients with an unknown legal sex. Please refer to the laboratory test catalog for established sex-specific reference intervals. Current interpretive data was last revised on 2023. Hct 40.7 35.6 - 45.5 % [facility] Comment: Interpretive Data A reference range for this assay has not been established for patients with an unknown legal sex. Please refer to the laboratory test catalog for established sex-specific reference intervals. Current interpretive data was last revised on 2023. Plt 309 150 - 400 K/cumm [facility] MPV 12.0 9.1 - 12.3 fL [facility] RBC 4.64 3.90 - 5.20 M/cumm [facility] Comment: Interpretive Data A reference range for this assay has not been established for patients with an unknown legal sex. Please refer to the laboratory test catalog for established sex-specific reference intervals. Current interpretive data was last revised on 2023. MCV 87.7 81.3 - 96.4 fL [facility] MCH 29.7 27.1 - 33.3 pg [facility] MCHC 33.9 32.3 - 35.7 g/dL [facility] RDW CV 11.9 11.1 - 14.9 % [facility] RDW SD 38.6 35.7 - 48.1 fL [facility] NRBC abs 0.00 0.00 - 0.01 K/cumm [facility] Blood 04/10/2023 4:50 PM [employer] 04/10/2023 5:09 PM [employer] us Andrei Ambrocio MD LAB BLOOD ORDERABLE S Final Result [facility] Department [place] [address] * POCT glucose (04/10/2023 3:20 PM [employer]) [facility] Glucose, POC 74 70 - 199 mg/dL [facility] Blood 04/10/2023 3:20 PM [employer] 04/10/2023 3:20 PM [employer] us Notinfile Unknown LAB POCT ORDERABLES - DEVICE F inal Result Performing Organization Address [facility] de Phone Number [facility] Department [place] [address] * ECG 12-LEAD (04/10/2023 2:27 PM SHEET METAL SHOP FOREMAN) Narrative [facility] - 04/10/2023 2:27 PM SHEET METAL [employer] FOREMAN Federico Clements MD ? 04/10/2023 ??2:28 PM ECG 12 lead Date/Time: 04/10/2023 2:27 PM Performed by: Federico Clements MD Authorized by: Federico Clements MD ?? Rate: ??ECG rate: ??85 ??ECG rate assessment: normal ?? Rhythm: ??Rhythm: sinus rhythm ?? Ectopy: ??Ectopy: none ?? QRS: ??QRS axis: ??Normal ??QRS intervals: ??Normal Conduction: ??Conduction: normal ?? ST segments: ??ST segments: ??Normal T waves: ??T waves: normal ?? Previous ECG: ??Previous ECG: ??Unavailable Interpretation: ??Interpretation: normal ?? Recommended Follow-up: ??Recommended follow up: further workup in the ED ?? Comments: ?? LR Federico Clements MD ECG ORDERABLES Final Resul t Performing Organization Address [facility] de Phone Number [facility] * POCT glucose (04/10/2023 1:19 PM SHEET MET[employer] SHOP FOREMAN) Glucose, POC 102 70 - 199 mg/dL [facility] Blood 04/10/2023 1:19 PM SHEET [employer]EMAN 04/10/2023 1:19 PM SHEET [employer]EMAN Notinfile Unknown LAB POCT ORDERABLES - DEVICE F inal Result Performing Organization Address [facility] Co de Phone Number [facility] Department [place] [address] documented in this encounter Visit Diagnoses Diagnosis Hypoglycemia- Primary Hypoglycemia, unspecified Other migraine without status migrainosus, not intractable documented in this encounter Administered Medications Inactive Administered Medications - up to 3 most recent administrations Medication Order MAR Action Action Date Dose Rate Site acetaminophen (TYLENOL) tablet 1,000 mg 1,000 mg, oral, Once, On Thu04/10/23 at 1702, For 1 dose Given 04/10/2023 5:06 PM SHEET [employer]EMAN 1,000 mg diphenhydrAMINE (BENADRYL) tab/cap 25 mg 25 mg, oral, Once, On Thu04/10/23 at 1702, For 1 dose Given 04/10/2023 5:06 PM SHEET [employer] FOREMAN 25 mg droPERidol (INAPSINE) injection 1.25 mg 1.25 mg, intravenous, Administer over 5 Minutes, Once, On Thu04/10/23 at 1702, For 1 dose Given 04/10/2023 5:06 PM SHEET MET[employer] SHOP FOREMAN 1.25 mg ketorolac (TORADOL) 30 mg/mL (1 mL) injection 15 mg 15 mg, intravenous, Once, On Thu04/10/23 at 1702, For 1 dose, For Adult IV push, administer over 15 seconds Given 04/10/2023 5:06 PM SHEET MET[employer]OP FOREMAN 15 mg Lactated Ringer's (LR) bolus 1,000 mL 1,000 mL, intravenous, Once, On Thu04/10/23 at 1702, For 1 dose New Bag 04/10/2023 5:06 PM SHEET METAL SHOP FOREMAN 1,000 mL documented in this encounter Active and Recently Administered Medications Times are shown in SHEET [employer]. Scheduled Medication Order 04/08/2023 04/09/2023 04/10/2023 acetaminophen (TYLENOL) tablet 1,000 mg (COMPLETED) 1,000 mg, oral, Once, On Thu04/10/23 at 1702, For 1 dose 170 (Given - Provid er: Kathleen Mckeon RN) diphenhydrAMINE (BENADRYL) tab/cap 25 mg (COMPLETED) 25 mg, oral, Once, On Thu04/10/23 at 1702, For 1 dose 1705 (Given - Provid er: Kathleen Mckeon RN) droPERidol (INAPSINE) injection 1.25 mg (COMPLETED) 1.25 mg, intravenous, Administer over 5 Minutes, Once, On Thu04/10/23 at 1702, For 1 dose 1706 (Given - Provid er: Kathleen Mckeon RN) ketorolac (TORADOL) 30 mg/mL (1 mL) injection 15 mg (COMPLETED) 15 mg, intravenous, Once, On Thu04/10/23 at 1702, For 1 dose, For Adult IV push, administer over 15 seconds 1706 (Given - Provid er: Kathleen Mckeon RN) Lactated Ringer's (LR) bolus 1,000 mL (COMPLETED) 1,000 mL, intravenous, Once, On Thu04/10/23 at 1702, For 1 dose 170 (New Bag - Prov ider: Kathleen Mckeon RN)1754 (Stopped - Provider: Kathleen Mckeon RN) documented in this encounter Orders Lab Orders Without Results Count Last Ordered D ate First Ordered Date POCT GLUCOSE DEVICE 2 04/10/2023 Nursing Count Last Ordered Date First Orde red Date MISCELLANEOUS NURSING CARE ORDER (SPECIFY) 1 04/10/2023 documented in this encounter Additional Health Concerns Infection Onset Date Last Indicated Resolved Time COVID: Suspected 04/10/2023 04/10/2023 04/10/2023 6:00 PM [employer] COVID19 04/10/2023 04/10/2023 04/20/2023 3:05 AM 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
--- OUTSIDE RECORDS SUMMARY | 2024-04-14 18:32 | XMS_ITS | Encounter Summary ---
Author Organization [facility] Healthcare Address [address] [place] [address] Care Team Providers Care Automotive Shop Foreman Name Role Phone Jessica Navarro NP Primary Care Provider + [phone] Ophelia Ashraf MD Unavailable [phone] Encounter Details Date Type Department Care Team (Late st Contact Info) Description 04/17/2023 Telephone [facility] Medical Group Diabetes End[facility] of [address] [place] [address] Mirian Call Social History Tobacco Use [...] Industry Job Start Date Job End Date [email or web address] Not on file N ot on file Not on file documented as of this encounter Miscellaneous Notes * Telephone Encounter - Caron Bernard MA - 04/17/2023 10:39 AM CST I have called patient back, she was requesting the surgical clearance form be faxed to her primary.I have completed R TAXI CAPTAIN * Telephone Encounter - Mirian Call - 04/17/2023 10:26 AM CST Lft msg requesting a call back from the nurse [phone] R TAXI CAPTAIN documented in this encounter Plan of Treatment Not on file documented as of this encounter Visit Diagnoses Not on filedocumented in this encounter Additional Health Concerns Infection Onset Date Last Indicated Resolved Time COVID19 04/10/2023 04/10/2023 04/20/2023 3:05 AM WATER TAXI CAPTAIN documented as of this encounter Care Teams Automotive Shop Foreman Relationship Specialty Start Date End Date Melanie, Jessica Pinto NP [address] [place] [address] PCP - General 08/23/20 Ophelia Ashraf MD [address] [place] [address] Consulting Physician Endocrinology 04/15/23 documented as of this encounter
--- OUTSIDE RECORDS SUMMARY | 2024-04-14 18:32 | XMS_ITS | Encounter Summary ---
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
--- OUTSIDE RECORDS SUMMARY | 2024-04-14 18:32 | XMS_ITS | Encounter Summary ---
Author Organization [facility] Address [address] [facility] [address] [place] [address] Phone Care Team Providers Care Adult Family Home Program Manager Name Role Phone Jessica Navarro NP Primary Care Provider Encounter Details Date Type Department Care Team (Late st Contact Info) Description 12/02/2022 Telephone [facility] Surgery [address] [place] [address] [address] [place] [phone] Cherelle Gambino RMA Social History Tobacco Use Types Packs/Day Years [...] 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 * Telephone Encounter - Cherelle Gambino RMA - 12/02/2022 4:31 PM CDT Contacted PCP office for a letter of appeal and spoke with Judith. She has letter and will send overemail to me. documented in this encounter Plan of Treatment Not on file documented as of this encounter Visit Diagnoses Not on filedocumented in this encounter Care Teams Adult Family Home Program Manager Relationship Specialty Start Date End Date Melanie, Jessica Pinto NP [address] [place] [address] PCP - General 08/23/20 documented as of this encounter
--- OUTSIDE RECORDS SUMMARY | 2024-04-14 18:32 | XMS_ITS | Encounter Summary ---
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 Thank you. RAFT CHARTER DISPATCHER * Telephone Encounter - Yudy Ruggiero - 04/15/2023 8:54 AM CST Spoke with patient and surgery date will be [id number] RAFT CHARTER DISPATCHER * Telephone Encounter - Marge Pearson MA - 04/14/2023 10:45 AM CST Patient has her A1C down to 6.8, she is consented for surgery. Please contact to schedule. CTR w/[employer]. Thank you RAFT CHARTER DISPATCHER documented in this encounter Plan of Treatment Not on file documented as of this encounter Visit Diagnoses Not on filedocumented in this encounter Additional Health Concerns Infection Onset Date Last Indicated Resolved Time COVID19 04/10/2023 04/10/2023 04/20/2023 3:05 AM AIRCRAFT CHARTER DISPATCHER documented as of this encounter Care Teams Loan Documentation Specialist Relationship Specialty Start Date End Date Jessica Navarro NP [address] [place] [id number] PCP - General 08/23/20 Ophelia Ashraf MD [address] [place] [address] Consulting Physician Endocrinology 04/15/23 documented as of this encounter
--- OUTSIDE RECORDS SUMMARY | 2024-04-14 18:32 | XMS_ITS | Encounter Summary ---
Author Organization [facility] Healthcare Address [address] [place] [address] Care Team Providers Care Line Servicer Name Role Phone Jessica Navarro NP Primary Care Provider Reason for Visit * Reason Comments Head Injury Encounter Details Date Type Department Care Team (Late st Contact Info) Description 09/05/2022 4:21 PM CDT - 09/05/2022 7:16 PM CDT Emergency [facility] [address] [place] [address] Nelson Mcdonnell MD [address] [place] [address] Concussion with loss of consciousness of 30 minutes or less, initial encounter (Primary Dx) Discharge Disposition: Discharge to home [...] 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 N ot on file Not on file documented as of this encounter Last Filed Vital Signs Vital Sign Reading Time Taken Comments Blood Pressure 133/78 09/05/2022 6:00 PM CDT Pulse 72 09/05/2022 6:00 PM CDT Temperature 36.3 ??C (97.3 ??F) 09/05/2022 4:18 PM CD T Respiratory Rate 18 09/05/2022 4:18 PM CDT Oxygen Saturation 99% 09/05/2022 6:00 PM CDT Inhaled Oxygen Concentration - - Weight 96.2 kg (212 lb) 09/05/2022 4:18 PM CDT Height 162.6 cm (5' 4 ) 09/05/2022 4:18 PM CDT Body Mass Index 36.39 09/05/2022 4:18 PM CDT documented in this encounter Discharge Instructions * Attachments The following attachments cannot be sent through Care Everywhere. * Concussion (Emirati) documented in this encounter Medications at [...] FOOD 03/11/2022 3 flash glucose scanning reader ([employer] Viviane 2 [place]) [facility] Use to monitor glucose levels, DX E11.65, Z79.4 1 each 05/23/2022 4 flash glucose sensor ([employer] Viviane 2 Sensor) kit Use to monitor glucose levels DX E11.65, Z79.4 2 kit 11 05/23/2022 3 fluconazole (DIFLUCAN) 150 mg tablet Take by mouth once 03/21/2022 3 gabapentin (NEURONTIN) 300 mg capsule TAKE 2 CAPSULES BY MOUTH AT BEDTIME 60 capsule 1 05/14/2021 3 HYDROcodone-acetamin ophen (NORCO) 5-325 mg per tabletIndications:Pa in Take 1 tablet by mouth every 6 (six) hours as needed for pain 15 tablet 09/05/2022 3 ibuprofen (ADVIL,MOTRIN) 800 mg tabletIndications:Pa in [...] TWICE DAILY 360 tablet 1 05/26/2022 3 metoclopramide (REGLAN) 10 mg tabletIndications:Na usea and Vomiting Take 1 tablet (10 mg total) by mouth every 6 (six) hours 30 tablet 09/05/2022 3 nicotine (NICODERM CQ) 14 mg APPLY [...] per day 100 strip 5 05/12/2022 4 semaglutide 0.25 mg or 0.5 mg (2 mg/3 mL) pen injector injection Inject 0.25 mg weekly for 4 weeks and then increase to 0.50 mg weekly 3 mL 5 09/05/2022 3 tiZANidine (ZANAFLEX) 4 mg tablet Take [...] 04/30/2022 3 documented as of this encounter Ordered Prescriptions Prescription Sig Dispense Quantity Refills Last Filled Start Date End Date HYDROcodone-acetam inophen (NORCO) 5-325 mg per tabletIndications: Pain Take 1 tablet by mouth every 6 (six) hours as needed for pain 15 tablet 09/05/2022 11/24/2022 metoclopramide (REGLAN) 10 mg tabletIndications: Nausea and Vomiting Take 1 tablet (10 mg total) by mouth every 6 (six) hours 30 tablet 09/05/2022 11/24/2022 documented in this encounter Discharge Disposition Disposition Code Departure Means Destination Comment s Discharge to home or self care documented in this encounter ED Notes * Jodee Hines MD - 09/05/2022 5:07 PM CDT HPI Chief Complaint Patient presents with Head Injury HPI Lilli Santos is a 27 year old with history of T2DM on insulin who presents to the ED after a fall while at work (works at [employer]) at 6:00 a.m. this morning. She was not able to find her placement and therefore could not come to the ED until her shift ended. States she was feeling fine and then fell backwards in her chair and hit the back of her head against the metal door frame. She does have posterior head pain that is sharp. As well as left lateral neck pain worse with movement. Deniesany other injury. Is unsure why she fell backwards. Denies loss of consciousness, loss of bowel or bladder function. No history of seizures. States she was eating and drinking normally. No new medicat ions. She has a [employer] Viviane glucose sensor and glucose was in the 300s prior to fall. She did dip into the 90s about an hour after the fall for quickly returning to the 300s. After the fall she was lightheaded when she stood up. She was nauseous and had a couple episodes of emesis. Approximately 1 hour after the fall the vision in her left eye became blurry. Denies chest pain, palpitations, shortness of breath, lightheadedness, dizziness, vision changes, speech changes, weakness currently. Denies history of similar episodes. Denies feeling particularly anxious before the event. Patient History: Patient Active Problem List Diagnosis Date Noted Type 2 diabetes mellitus with hyperglycemia, with long-term current use of insulin ([facility]) (HCC) 05/12/2022 Benign thyroid cyst 04/14/2022 Acquired [...] Diagnosis Date Anxiety Asthma Depression Diabetes mellitus ([facility]) GERD (gastroesophageal reflux disease) Rheumatoid arthritis ([facility]) Thyroid disease Past Surgical History: Procedure Laterality [...] History Tobacco Use Smoking status: Every Day Packs/day: 1.00 Types: Cigarettes Smokeless tobacco: Never Vaping Use Vaping status: Not on file Substance and Sexual Activity Alcohol use: Never Drug use: Never Sexual activity: Not Currently Social History Social History Narrative Not on file Review of Systems Review of Systems Constitutional: Negative for chills and fever. HENT: Negative for ear discharge, ear pain, rhinorrhea and sore throat. Eyes: Positive for visual disturbance. Negative for pain. Respiratory: Negative for cough and shortness of breath. Cardiovascular: Negative for chest pain and palpitations. Gastrointestinal: Positive for nausea and vomiting. Negative for abdominal pain. Genitourinary: Negative for dysuria and hematuria. Musculoskeletal: Negative for arthralgias and back pain. Skin: Negative for color change and rash. Neurological: Positive for dizziness and light-headedness. Negative for seizures and syncope. Psychiatric/Behavioral: The patient is not nervous/anxious. All other systems reviewed and are negative. Physical Exam ED Triage Vitals [09/05/22 1618] Temp Pulse Resp BP SpO2 36.3 ??C (97.3 ??F) 94 18 151/88 100 % Temp src Heart Rate Source Patient Position BP Location FiO2 (%) -- -- -- -- -- Height Height Method Weight Weight Method 1.626 m (5' 4 ) -- 96.2 kg (212 lb) -- Physical Exam Vitals and nursing note reviewed. Constitutional: Appearance: Normal appearance. HENT: Head: Normocephalic. No raccoon eyes, Suero's sign or laceration. Comments: Left lateral neck tenderness with palpation. Right Ear: Tympanic membrane, ear canal and external ear normal. No hemotympanum. Left Ear: Tympanic membrane, ear canal and external ear normal. No hemotympanum. Nose: Nose normal. Mouth/Throat: Mouth: Mucous membranes are moist. Eyes: Extraocular Movements: Extraocular movements intact. Conjunctiva/sclera: Conjunctivae normal. Pupils: Pupils are equal, round, and reactive to light. Cardiovascular: Rate and Rhythm: Normal rate and regular rhythm. Heart sounds: No murmur heard. Pulmonary: Effort: Pulmonary effort is normal. No respiratory distress. Breath sounds: Normal breath sounds. No wheezing or rales. Abdominal: Palpations: Abdomen is soft. Tenderness: There is no abdominal tenderness. Musculoskeletal: General: Normal range of motion. Cervical back: Normal range of motion and neck supple. Skin: General: Skin is warm and dry. Neurological: General: No focal deficit present. Mental Status: She is alert and oriented to person, place, and time. Cranial Nerves: No cranial nerve deficit. Sensory: No sensory deficit. Motor: No weakness. Coordination: Coordination normal. Gait: Gait normal. MDM Medical Decision Making Lilli Santos is a 27-year-old female with history of type 2 diabetes on insulin who presents to the ED after falling out of her chair backwards while at work this morning. She hit her head and sincethen has had a headache, nausea, vomiting, blurry vision in her left eye. Will order CT head given concerning symptoms. Will order EKG, CBC, CMP to look for causes of fall. At this point physical exam is unrevealing. Cranial nerves are intact, no weakness, or sensory abnormalities. No obvious raccoon eyes, suero sign, hemotympanum, laceration or ecchymosis. Fall could be caused by hypoglycemic episode. Patient reports large decrease in sugar from 300s to less than 100s noted on continuous glucose monitor around the time of fall. Other differentials for near-syncope would be cardiac or vasovagal. These are considered less likely. Also less likely would be seizure. Amount and/or Complexity of Data Reviewed Labs: ordered. Radiology: ordered. ECG/medicine tests: ordered. Risk Prescription drug management. Attending Summary of Care ED Course as of 09/05/227 Time: 09/05 182 Comment: I, Dr. Nelson Mcdonnell, Personally saw and examined this patient. I have reviewed and agree with the resident's findings, including all diagnostic interpretations and treatment plan as written. I was present for the mcdaniel portions of any procedures performed and the inclusive time noted forany critical care statement. By: Nelson Mcdonnell MD Time: 09/05 2100 Comment: CBC, BMP reassuring. Glucose was noted to be 238. EKG with normal sinus rhythm, no ST segment changes. HCG was negative. CT head without contrast and CT cervical spine without contrast showed no acute findings. Patient was given Reglan and Toradol for headache with some relief. She was discharged home with precautions on driving and given a work note to recover from concussion. By: Jodee Hines MD Concussion with loss of consciousness of 30 minutes or less, initial encounter Jodee Hines MD 09/05/222136 Cosigned by Nelson Mcdonnell MD at 09/06/2022 11:10 AM CDT * Lorena Elder RN - 09/05/2022 4:16 PM CDT Patient arrives for evaluation of head pain, nausea, vomiting, and blurry vision to her left eye after falling backward out of her chair and hitting her head at 6am. Patient denies LOC. documented in this encounter Plan of Treatment Not on file documented as of this encounter Procedures Procedure Name Priority Date/Time Associated Diagnosis Comments ECG 12-LEAD Routine 09/05/2022 5:48 PM CDT EGFR STAT 09/05/2022 5:45 PM CDT DIFFERENTIAL AUTO STAT 09/05/2022 5:4 5 PM CDT CBC WITH AUTO DIFFERENTIAL STAT 09/05/2022 5:45 PM CDT BASIC METABOLIC PANEL STAT 09/05/2022 5:[address] CERVICAL SPINE WO CONTRAST ED 09/05/2022 5:[address] HEAD WO CONTRAST ED 09/05/2022 5 :26 PM CDT POCT HCG, URINE Routine 09/05/2022 4:40 PM CDT documented in this encounter Results * ECG 12 lead (09/05/2022 5:48 PM CDT) 09/05/2022 5:48 PM CDT Narrative [facility] - 09/06/2022 8:49 AM CDT Vent Rate: 73 bpm RR Interval: [address] Interval: 200 msec QRS Duration: 94 msec QT Interval: 381 msec QTC Interval: 407 msec P-R-T [place]: 27 - 2 - 16 degrees SINUS RHYTHM WITH SINUS ARRHYTHMIA NORMAL ECG No change from prior EKG Electronically Signed By: Giovanny Olguin MD us Jodee Hines MD ECG ORDERABLES Final Result [facility] * eGFR (09/05/2022 5:45 PM CDT) eGFR 123 mL/min/1. 73 m2 [facility] ([place]) Comment: [...] Inclusion of Race in Diagnosing Kidney Disease, LUKASZN 2020). The CKD-EPI equation should not be used for patients with unstable renal function and has not been validated in children and those over 70. Current interpretive data was last reviewed 2021. Blood 09/05/2022 5:45 PM CDT 09/05/2022 5:47 PM CDT us Jodee Hines MD LAB BLOOD ORDERABLES F inal Result [facility] ([place]) [address] [facility] [place] [address] * (ABNORMAL) Differential, auto (09/05/2022 5:45 PM CDT) Neutrophil abs 5.3 1.7 - 6.5 K/cumm [facility] ([place]) Imm gran abs 0.0 0.0 - 0.1 K/cumm [facility] ([place]) Lymphocyte abs 4.2(H) 0.8 - 3.3 K/cumm [facility] ([place]) Monocyte abs 0.6 0.2 - 0.8 K/cumm [facility] ([place]) Eosinophil abs 0.6(H) 0.0 - 0.5 K/cumm [facility] ([place]) Basophil abs 0.1 0.0 - 0.1 K/cumm [facility] ([place]) Neutrophil pct 48.9 % [facility] ([place]) Comment: Interpretive [...] was last revised on 2017. Lymphocyte pct 39.2 % [facility] ([place]) Comment: Interpretive [...] was last revised on 2017. Eosinophil pct 5.9 % [facility] ([place]) Comment: Interpretive Data Percent cell count reference ranges are not reported, since discordance with absolute values may lead to misinterpretation of CBC data. Current Interpretive Data was last revised on 2017. Basophil pct 0.5 % [facility] ([place]) Comment: Interpretive Data Percent cell count reference ranges are not reported, since discordance with absolute values may lead to misinterpretation of CBC data. Current Interpretive Data was last revised on 2017. Blood 09/05/2022 5:45 PM CDT 09/05/2022 5:47 PM CDT Jodee Hines MD LAB BLOOD ORDERABLES F inal Result [facility] ([place]) [address] [facility] [place] [address] * (ABNORMAL) Basic metabolic panel (09/05/2022 5:45 PM CDT) Sodium 136 135 - 145 mmol/L [facility] ([place]) Potassium, pl 4.4 3.3 - 4.9 mmol/L [facility] ([place]) Chloride 102 97 - 110 mmol/L [facility] ([place]) CO2 25 22 - 32 mmol/L [facility] ([place]) Anion gap 9 2 - 15 mmol/L [facility] ([place]) BUN 14 8 - 25 mg/dL [facility] ([place]) Creatinine 0.63 0.60 - 1.10 mg/dL [facility] ([place]) Glucose 238(H) 70 - 199 mg/dL [facility] ([place]) [...] interpretive data was last revised 2022. Calcium 9.4 8.5 - 10.3 mg/dL [facility] ([place]) Blood 09/05/2022 5:45 PM CDT 09/05/2022 5:47 PM CDT us Jodee Hines MD LAB BLOOD ORDERABLES F inal Result [facility] ([place]) [address] [facility] [place] [address] * (ABNORMAL) CBC with auto differential (09/05/2022 5:45 PM CDT) WBC 10.8(H) 3.8 - 9.9 K/cumm [facility] ([place]) Hgb 13.9 11.9 - 15.5 g/dL [facility] ([place]) Hct 40.0 35.6 - 45.5 % [facility] ([place]) Plt 230 150 - 400 K/cumm [facility] ([place]) MPV 11.5 9.1 - 12.3 fL [facility] ([place]) RBC 4.53 3.90 - 5.20 M/cumm [facility] ([place]) MCV 88.3 81.3 - 96.4 fL [facility] ([place]) MCH 30.7 27.1 - 33.3 pg [facility] ([place]) MCHC 34.8 32.3 - 35.7 g/dL [facility] ([place]) RDW CV 11.8 11.1 - 14.9 % [facility] ([place]) RDW SD 38.1 35.7 - 48.1 fL [facility] ([place]) NRBC abs 0.00 0.00 - 0.01 K/cumm [facility] ([place]) Blood 09/05/2022 5:45 PM CDT 09/05/2022 5:47 PM CDT us Jodee Hines MD LAB BLOOD ORDERABLES F inal Result [facility] ([facility]) [address] [facility] [place] [address] * CT Cervical Spine WO Contrast (09/05/2022 5:26 PM CDT) Anatomical Region Laterality Modality Spine N/A Computed Tomogra phy 09/05/2022 6:05 PM CDT Narrative 09/05/2022 6:21 PM CDT EXAM DESCRIPTION: ?? CT HEAD WO CONTRAST; CT CERVICAL SPINE WO CONTRAST REASON FOR STUDY: ?? Head trauma, repeat vomiting (Age 19-64y), fall ?? Evaluation of head pain, nausea, vomiting, and blurry vision to her left eye after falling backward out of her chair and hitting the left side of her head at 6am. Patient denies LOC. ?? ; Neck trauma, uncomplicated (NEXUS/CCR neg) (Age < 65y), fall ?? Evaluation of head pain, nausea, vomiting, and blurry vision to her left eye after falling backward out of her chair and hitting the left side of her head at 6am. Patient denies LOC. ? TECHNIQUE: Axial images acquired through the brain without intravenous contrast. ??Images stored on PACS. ?? Automated exposure control was used as a dose optimization technique for this examination. Axial images acquired through the cervical spine without intravenous contrast. Images stored on PACS. Automated exposure control was used as a dose optimization technique for this examination. COMPARISON: ?? None available FINDINGS: Head: BRAIN: ??No hemorrhage, edema or mass effect. No recent infarct. ?The rivas-white matter differentiation is normal. ?No cerebral atrophy. ??Normal size and morphology of the ventricular system. ??No acute intraventricular hemorrhage. ??Basal cisterns are patent. EXTRA-AXIAL SPACES: ?? No fluid collections. No masses. CALVARIUM: ?? No fracture. SINUSES/MASTOIDS: ?? No fluid or mucosal thickening. ORBITS: ?? No significant abnormality. OTHER: ?? No other significant abnormality. Cervical spine: There is slight kyphosis of the upper cervical spine which could be positional in etiology or due to muscle spasm. ??The cervical spine alignment is otherwise normal. ??The vertebral body heights are normal and there is no acute fracture. The intervertebral disc spaces are preserved. ??The facet and uncovertebral joints are intact. ??No osseous neural foraminal or osseous central canal stenosis. There is no acute osseous abnormality in the imaged upper thoracic spine. ?? Normal bone mineralization. ??No aggressive osseous lesions. Neck soft tissues demonstrate no definitive acute abnormality. ??There is no cervical mass or cervical lymphadenopathy. ??Imaged lungs are clear. ??Prior right thyroidectomy. IMPRESSION: 1. ?? No acute intracranial findings. 2. ??No CT evidence of acute traumatic injury to the cervical spine. THIS IS AN ELECTRONICALLY VERIFIED FINAL REPORT 09/05/2022 6:21 PM - Electronically signed by ??Amarjit Vazquez M.D. AT: AT D: ??09/05/2022 6:21 PM T: ??09/05/2022 6:21 PM Report ID: [id number] Reading Location: ??[id number] Procedure Note Amarjit Vazquez MD - 09/05/2022 EXAM DESCRIPTION: CT HEAD WO CONTRAST; CT CERVICAL SPINE WO CONTRAST REASON FOR STUDY: Head trauma, repeat vomiting (Age 19-64y), fall Evaluation of head pain, nausea, vomiting, and blurry vision to her lefteye after falling backward out of her chair and hitting the left side of herhead at 6am. Patient denies LOC. ; Neck trauma, uncomplicated (NEXUS/CCR neg) (Age < 65y), fall Evaluation of head pain, nausea, vomiting, and blurry vision to her lefteye after falling backward out of her chair and hitting the left side of herhead at 6am. Patient denies LOC. TECHNIQUE: Axial images acquired through the brain without intravenous contrast. Images stored on PACS. Automated exposure control was used asa dose optimization technique for this examination. Axial images acquired through the cervical spine without intravenouscontrast. Images stored on PACS. Automated exposure control was used as a dose optimization technique for this examination. COMPARISON: None available FINDINGS: Head: BRAIN: No hemorrhage, edema or mass effect. No recent infarct. The rivas-white matter differentiation is normal. No cerebral atrophy.Normal size and morphology of the ventricular system. No acute intraventricular hemorrhage. Basal cisterns are patent. EXTRA-AXIAL SPACES: No fluid collections. No masses. CALVARIUM: No fracture. SINUSES/MASTOIDS: No fluid or mucosal thickening. ORBITS: No significant abnormality. OTHER: No other significant abnormality. Cervical spine: There is slight kyphosis of the upper cervical spine which could bepositional in etiology or due to muscle spasm. The cervical spine alignment isotherwise normal. The vertebral body heights are normal and there is no acutefracture. The intervertebral disc spaces are preserved. The facet anduncovertebral joints are intact. No osseous neural foraminal or osseous central canal stenosis. There is no acute osseous abnormality in the imaged upper thoracic spine. Normal bone mineralization. No aggressive osseous lesions. Neck soft tissues demonstrate no definitive acute abnormality. There isno cervical mass or cervical lymphadenopathy. Imaged lungs are clear. Prior right thyroidectomy. IMPRESSION: 1. No acute intracranial findings. 2. No CT evidence of acute traumatic injury to the cervical spine. THIS IS AN ELECTRONICALLY VERIFIED FINAL REPORT 09/05/2022 6:21 PM - Electronically signed by Amarjit Vazquez M.D. AT: AT Report ID: [id number] Reading Location: [id number] Nelson Mcdonnell MD IMG CT PROCEDURES Final Res ult * CT Head WO Contrast (09/05/2022 5:26 PM CDT) Anatomical Region Laterality Modality Head and Neck N/A Computed Tomogra phy 09/05/2022 6:05 PM CDT Narrative 09/05/2022 6:21 PM CDT EXAM DESCRIPTION: ?? CT HEAD WO CONTRAST; CT CERVICAL SPINE WO CONTRAST REASON FOR STUDY: ?? Head trauma, repeat vomiting (Age 19-64y), fall ?? Evaluation of head pain, nausea, vomiting, and blurry vision to her left eye after falling backward out of her chair and hitting the left side of her head at 6am. Patient denies LOC. ?? ; Neck trauma, uncomplicated (NEXUS/CCR neg) (Age < 65y), fall ?? Evaluation of head pain, nausea, vomiting, and blurry vision to her left eye after falling backward out of her chair and hitting the left side of her head at 6am. Patient denies LOC. ? TECHNIQUE: Axial images acquired through the brain without intravenous contrast. ??Images stored on PACS. ?? Automated exposure control was used as a dose optimization technique for this examination. Axial images acquired through the cervical spine without intravenous contrast. Images stored on PACS. Automated exposure control was used as a dose optimization technique for this examination. COMPARISON: ?? None available FINDINGS: Head: BRAIN: ??No hemorrhage, edema or mass effect. No recent infarct. ?The rivas-white matter differentiation is normal. ?No cerebral atrophy. ??Normal size and morphology of the ventricular system. ??No acute intraventricular hemorrhage. ??Basal cisterns are patent. EXTRA-AXIAL SPACES: ?? No fluid collections. No masses. CALVARIUM: ?? No fracture. SINUSES/MASTOIDS: ?? No fluid or mucosal thickening. ORBITS: ?? No significant abnormality. OTHER: ?? No other significant abnormality. Cervical spine: There is slight kyphosis of the upper cervical spine which could be positional in etiology or due to muscle spasm. ??The cervical spine alignment is otherwise normal. ??The vertebral body heights are normal and there is no acute fracture. The intervertebral disc spaces are preserved. ??The facet and uncovertebral joints are intact. ??No osseous neural foraminal or osseous central canal stenosis. There is no acute osseous abnormality in the imaged upper thoracic spine. ?? Normal bone mineralization. ??No aggressive osseous lesions. Neck soft tissues demonstrate no definitive acute abnormality. ??There is no cervical mass or cervical lymphadenopathy. ??Imaged lungs are clear. ??Prior right thyroidectomy. IMPRESSION: 1. ?? No acute intracranial findings. 2. ??No CT evidence of acute traumatic injury to the cervical spine. THIS IS AN ELECTRONICALLY VERIFIED FINAL REPORT 09/05/2022 6:21 PM - Electronically signed by ??Amarjit Vazquez M.D. AT: AT D: ??09/05/2022 6:21 PM T: ??09/05/2022 6:21 PM Report ID: [id number] Reading Location: ??[id number] Procedure Note Amarjit Vazquez MD - 09/05/2022 EXAM DESCRIPTION: CT HEAD WO CONTRAST; CT CERVICAL SPINE WO CONTRAST REASON FOR STUDY: Head trauma, repeat vomiting (Age 19-64y), fall Evaluation of head pain, nausea, vomiting, and blurry vision to her lefteye after falling backward out of her chair and hitting the left side of herhead at 6am. Patient denies LOC. ; Neck trauma, uncomplicated (NEXUS/CCR neg) (Age < 65y), fall Evaluation of head pain, nausea, vomiting, and blurry vision to her lefteye after falling backward out of her chair and hitting the left side of herhead at 6am. Patient denies LOC. TECHNIQUE: Axial images acquired through the brain without intravenous contrast. Images stored on PACS. Automated exposure control was used asa dose optimization technique for this examination. Axial images acquired through the cervical spine without intravenouscontrast. Images stored on PACS. Automated exposure control was used as a dose optimization technique for this examination. COMPARISON: None available FINDINGS: Head: BRAIN: No hemorrhage, edema or mass effect. No recent infarct. The rivas-white matter differentiation is normal. No cerebral atrophy.Normal size and morphology of the ventricular system. No acute intraventricular hemorrhage. Basal cisterns are patent. EXTRA-AXIAL SPACES: No fluid collections. No masses. CALVARIUM: No fracture. SINUSES/MASTOIDS: No fluid or mucosal thickening. ORBITS: No significant abnormality. OTHER: No other significant abnormality. Cervical spine: There is slight kyphosis of the upper cervical spine which could bepositional in etiology or due to muscle spasm. The cervical spine alignment isotherwise normal. The vertebral body heights are normal and there is no acutefracture. The intervertebral disc spaces are preserved. The facet anduncovertebral joints are intact. No osseous neural foraminal or osseous central canal stenosis. There is no acute osseous abnormality in the imaged upper thoracic spine. Normal bone mineralization. No aggressive osseous lesions. Neck soft tissues demonstrate no definitive acute abnormality. There isno cervical mass or cervical lymphadenopathy. Imaged lungs are clear. Prior right thyroidectomy. IMPRESSION: 1. No acute intracranial findings. 2. No CT evidence of acute traumatic injury to the cervical spine. THIS IS AN ELECTRONICALLY VERIFIED FINAL REPORT 09/05/2022 6:21 PM - Electronically signed by Amarjit Vazquez M.D. AT: AT Report ID: [id number] Reading Location: [place] [address] Nelson Mcdonnell MD IMG CT PROCEDURES Final Res ult * POCT hCG, urine (09/05/2022 4:40 PM CDT) HCG, ur, POC Negative Lot Number [id number] QC Backgroud Clear Acceptable QC Control Line Acceptable Urine 09/05/2022 4:40 PM CDT Nelson Mcdonnell MD POINT OF CARE TEST ORDERABL ES Final Result documented in this encounter Visit Diagnoses Diagnosis Concussion with loss of consciousness of 30 minutes or less, initial encounter- Primary documented in this encounter Administered Medications Inactive Administered Medications - up to 3 most recent administrations Medication Order MAR Action Action Date Dose Rate Site ketorolac (TORADOL) 60 mg/2 mL intramuscular injection 60 mg 60 mg, intramuscular, Once, On Thu09/05/22 at 1901, For 1 dose Given 09/05/2022 7:04 PM CDT 60 mg Left Ventrogluteal metoclopramide (REGLAN) tablet 10 mg 10 mg, oral, Once, On Thu09/05/22 at 1901, For 1 dose Given 09/05/2022 7:04 PM CDT 10 mg documented in this encounter Active and Recently Administered Medications Times are shown in CDT. Scheduled Medication Order 09/03/2022 09/04/2022 09/05/2022 ketorolac (TORADOL) 60 mg/2 mL intramuscular injection 60 mg (COMPLETED) 60 mg, intramuscular, Once, On Thu09/05/22 at 1901, For 1 dose 1904 (Given - Provid er: Sebastian Kelley RN) metoclopramide (REGLAN) tablet 10 mg (COMPLETED) 10 mg, oral, Once, On Thu09/05/22 at 1901, For 1 dose 1904 (Given - Provid er: Sebastian Kelley RN) documented in this encounter Care Teams Line Servicer Relationship Specialty Start Date End Date Jessica Navarro NP [address] [place] [address] PCP - General 08/23/20 documented as of this encounter
--- OUTSIDE RECORDS SUMMARY | 2024-04-14 18:32 | XMS_ITS | Encounter Summary ---
Author Organization [facility] Address [address] [facility] [address] [place] [address] Care Team Providers Care Orthodontist Vice President Name Role Phone Jessica Navarro NP Primary Care Provider Encounter Details Date Type Department Care Team (Late st Contact Info) Description 09/05/2022 Telephone [facility] Diabetes Endocrine Care of [address] [place] [phone] Ophelia Ashraf MD [address] [place] [address] [address] [place] [address] Social History Tobacco Use Types [...] Industry Job Start Date Job End Date [employer] Not on file N ot on file Not on file documented as of this encounter Ordered Prescriptions Prescription Sig Dispense Quantity Refills Last Filled Start Date End Date semaglutide 0.25 mg or 0.5 mg (2 mg/3 mL) pen injector injection Inject 0.25 mg weekly for 4 weeks and then increase to 0.50 mg weekly 3 mL 5 09/05/2022 documented in this encounter Miscellaneous Notes * Telephone Encounter - Caron Bernard MA - 09/05/2022 9:15 AM CDT Patient is aware, RX Send * Telephone Encounter - Caron Bernard MA - 09/05/2022 9:13 AM CDT ----- Message from Ophelia Ashraf MD sent at 09/05/2022 8:34 AM CDT ----- Normal kidney and urine tests- we will be able to start her on medication to control blood sugar and weight. Start Ozempic 0.25 mg once /week to be increased in one month to 0.5 mg /week documented in this encounter Plan of Treatment Not on file documented as of this encounter Visit Diagnoses Not on filedocumented in this encounter Care Teams Orthodontist Vice President Relationship Specialty Start Date End Date Jessica Navarro NP [address] [place] [address] PCP - General 08/23/20 documented as of this encounter
--- OUTSIDE RECORDS SUMMARY | 2024-04-14 18:32 | XMS_ITS | Encounter Summary ---
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 (HCC) Jessica Navarro NP [address] [place] [id number] Phone: tel: fax: Ophelia Ashraf MD [address] [place] [address] [address] [place] [address] Phone: tel: fax: Referral ID Status Reason Start Date Expiration Date V isits Requested Visits Authorized [id number] Closed Specialty Services Required 03/26/2022 04/25/2023 6 6 Encounter Details Date Type Department Care Team (Late st Contact Info) Description 05/12/2022 1:30 PM PLATE SLITTER AND INSPECTOR Office Visit [facility] Diabetes Endocrine Care of [address] [place] [phone] Ophelia Ashraf MD [address] [place] [address] [address] [place] [address] Type 2 diabetes mellitus with hyperglycemia, with [...] Sign Reading Time Taken Comments Blood Pressure 116/62 05/12/2022 1:32 PM PLATE SLITTER AND INSPECTOR Pulse - - Temperature - - Respiratory Rate - - Oxygen Saturation - - Inhaled Oxygen Concentration - - Weight 83.2 kg (183 lb 6.4 oz) 05/12/2022 1:32 P M PLATE SLITTER AND INSPECTOR Height 162.6 cm (5' 4 ) 05/12/2022 1:32 PM PLATE SLITTER AND INSPECTOR Body Mass Index 31.48 05/12/2022 1:32 PM PLATE SLITTER AND INSPECTOR documented in this encounter Ordered Prescriptions Prescription Sig Dispense Quantity Refills Last Filled Start Date End Date TRUEplus Pen Needle 32 gauge x needle Use 3 per day for insulin pen 100 each 5 05/12/2022 4 OneTouch Ultra Test strip Use to check sugars 3 x per day 100 strip 5 05/12/2022 4 insulin lispro (HumaLOG) 100 unit/mL pen for injection Use as directed before meals, max 20 units per day 15 mL 2 05/12/2022 4 documented in this encounter Progress Notes * Ophelia Ashraf MD - 05/12/2022 1:30 PM CST Subjective/Objective Patient ID: Lilli Santos is a 27 y.o. female. Chief Complaint New Patient (DM type 2) Patient referred for evaluation and treatment of high blood sugars Patient is on Lantus insulin 20 units Qhs, plus Metformin 1000 mg bid. Diet : eats one meal /day- never seen dietitian. She monitors sugars 3 x per day and reports sugars between 200-300. Diabetes This is a chronic problem. The problem has been gradually worsening. Associated symptoms include fatigue. Pertinent negatives include [...] hyperglycemia, with long-term current use of insulin ([facility]) ([facility]) (E11.65, Z79.4) (Primary) Assessment & Plan: Diagnosed [...] exam on regular basis. Orders: - POCT hemoglobin A1c - Ambulatory referral to [facility]; Future Other orders - insulin lispro (HumaLOG) 100 unit/mL pen for injection; Use as directed before meals, max 20 units per day - OneTouch Ultra Test strip; Use to check sugars 3 x per day - TRUEplus Pen Needle 32 gauge x 5/32 needle; Use 3 per day for insulin pen E SLITTER AND INSPECTOR documented in this encounter Miscellaneous Notes * Assessment & Plan Note - Ophelia Ashraf MD - 05/12/2022 2:09 PM PLATE SLITTER AND INSPECTOR Associated Problem(s): Type 2 diabetes mellitus without complication, without long-term current useof insulin ([facility]) ([facility]) Diagnosed in 2019 Started insulin in 2021 [...] low sugars. Ophthalmology exam on regular basis. E SLITTER AND INSPECTOR documented in this encounter Plan of Treatment Not on file documented as of this encounter Procedures Procedure Name Priority Date/Time Associated Diagnosis Comments POCT HEMOGLOBIN A1C Routine 05/12/2022 1 :47 PM PLATE SLITTER AND INSPECTOR Type 2 diabetes mellitus with hyperglycemia, with long-term current use of insulin ([facility]) ([facility]) documented in this encounter Results * (ABNORMAL) POCT hemoglobin A1c (05/12/2022 1:47 PM PLATE SLITTER AND INSPECTOR) Hemoglobin A1C, POC 14.0 Blood 05/12/2022 1:47 PM PLATE SLITTER AND INSPECTOR Ophelia Ashraf MD POINT OF CARE TEST ORDERABLES Final Result documented in this encounter Visit Diagnoses Diagnosis Type 2 diabetes mellitus with hyperglycemia, with long-term current use of insulin (HCC)- Primary documented in this encounter Discontinued Medications Medication Sig Discontinue Reason Start Date End Da te UNABLE TO FIND Ambilify 10mg Duplicate order 05/12/2022 OneTouch Ultra Test strip CHECK BLOOD SUGAR 1-2 TIMES DAILY Reorder 12/29/2020 05/12/2022 TRUEplus Pen Needle 32 gauge x /32 needle USE DIRECTED FOR ONCE DAILY INJECTION Reorder 03/27/2022 05/12/2022 documented as of this encounter Historical Medications * This list may reflect changes made after this encounter. WesTab Plus 27 mg iron- 1 mg tablet Take 1 tablet by mouth daily 04/30/2022 11/24/2022 nicotine (NICODERM CQ) 14 mg APPLY 1 PATCH EVERY DAY 04/30/2022 11/24/2022 added in this encounter Care Teams Director Of Assisted Living Relationship Specialty Start Date End Date Jessica Navarro NP [address] [place] [address] PCP - General 08/23/20 documented as of this encounter
--- OUTSIDE RECORDS SUMMARY | 2024-04-14 18:32 | XMS_ITS | Encounter Summary ---
Author Organization [facility] Healthcare Address [address] [place] [address] Care Team Providers Care Dairy Equipment Specialist Name Role Phone Jessica Navarro NP Primary Care Provider Reason for Visit * Reason Comments Headache Hyperglycemia Encounter Details Date Type Department Care Team (Late st Contact Info) Description 11/04/2021 12:45 AM CDT - 11/04/2021 2:27 AM CDT Emergency [facility] Emergency Department [address] [place] [address] Harvey Venegas MD [address] [place] [address] Other migraine without status migrainosus, not intractable (Primary Dx); Hyperglycemia Discharge Disposition: Discharge to home or self [...] Sign Reading Time Taken Comments Blood Pressure 99/50 11/04/2021 2:00 AM CDT Pulse 76 11/04/2021 2:00 AM CDT Temperature 36.8 ??C (98.2 ??F) 11/03/2021 9:49 PM CD T Respiratory Rate 17 11/03/2021 9:49 PM CDT Oxygen Saturation 96% 11/04/2021 2:00 AM CDT Inhaled Oxygen Concentration - - Weight 98.4 kg (217 lb) 11/03/2021 9:49 PM CDT Height 162.6 cm (5' 4 ) 11/03/2021 9:49 PM CDT Body Mass Index 37.25 11/03/2021 9:49 PM CDT documented in this encounter Discharge Diagnoses Diagnosis Other migraine, not intractable, without status migrainosus - OTHER MIGRAINE, NOT INTRACTABLE, WITHOUT STATUS MIGRAINOSUS Type 2 diabetes mellitus with hyperglycemia (CMS/HCC) ([facility]) - TYPE 2 DIABETES MELLITUS WITH HYPERGLYCEMIA Disorder of thyroid, unspecified - DISORDER OF THYROID, UNSPECIFIED Obesity, unspecified - OBESITY, UNSPECIFIED Obstructive sleep apnea (adult) (pediatric) - OBSTRUCTIVE SLEEP APNEA (ADULT) (PEDIATRIC) Gastro-esophageal reflux disease without esophagitis - GASTRO-ESOPHAGEAL REFLUX DISEASE WITHOUT ESOPHAGITIS Personal history of nicotine dependence - PERSONAL HISTORY OF NICOTINE DEPENDENCE Family history of ischemic heart disease and other diseases of the circulatory system - FAMILY HISTORY OF ISCHEMIC HEART DISEASE AND OTHER DISEASES OF THE CIRCULATORY SYSTEM Family history of arthritis - FAMILY HISTORY OF ARTHRITIS Family history of diabetes mellitus - FAMILY HISTORY OF DIABETES MELLITUS Body mass index (BMI) 37.0-37.9, adult - BODY MASS INDEX [BMI] 37.0-37.9, ADULT Other correction (current) drug therapy - OTHER LIAISON OFFICER (CURRENT) DRUG THERAPY medical terminologist (current) use of oral hypoglycemic drugs - LIAISON OFFICER (CURRENT) USE OF ORAL HYPOGLYCEMIC DRUGS documented in this encounter Discharge Instructions * Discharge Instructions* Harvey Venegas MD - 11/04/2021 1:13 AM CDT Thank you for the opportunity to care for you today! You were evaluated for and diagnosed with a headache likely from migraine and hyperglycemia. You had blood/urine tests and a neurologic exam that were unremarkable. You should follow-up with your primary doctor in the next week. Return to the ED for uncontrolled pain/nausea or other concerns. You should take acetaminophen and/or ibuprofen/naproxen as needed for pain. Continue taking your metformin unless directed otherwise. We sincerely hope you feel better soon! documented in this encounter Medications at Time [...] documented in this encounter ED Notes * Harvey Venegas MD - 11/04/2021 12:46 AM CDT HPI Chief Complaint Patient presents with ??? Headache ??? Hyperglycemia Patient is a 26-year-old woman with a history of diabetes, obesity complicated by ELLI, and tobacco use complicated by asthma who presents with headache and hyperglycemia. Gradual onset headache. Associated with nausea and phono/photophobia. Worse with head movement. Feels similar to prior headaches. Sugars have been running in the 400s. Associated with polyuria. Denies fever, chills, chest pain, abdominal pain, BM changes (chronic diarrhea), dysuria, or other complaints. Patient History: Patient Active Problem List Diagnosis [...] History Tobacco Use ??? Smoking status: Former Smoker Packs/day: 1.00 Types: Cigarettes ??? Smokeless tobacco: Never Used Substance and Sexual Activity ??? Drug use: Never ??? Sexual activity: Not Currently Alcohol Use: Not on file Alcohol Use: Not on file Social History Social History Narrative ??? Not on file Review of Systems Review of Systems Constitutional: Negative for chills and fever. HENT: Negative for congestion, rhinorrhea and sore throat. Eyes: Negative for visual disturbance. Respiratory: Negative for cough and shortness of breath. Cardiovascular: Negative for chest pain. Gastrointestinal: Positive for nausea. Negative for abdominal pain, constipation, diarrhea and vomiting. Endocrine: Positive for polyuria. Genitourinary: Positive for frequency and urgency. Negative for dysuria. Musculoskeletal: Negative for myalgias. Skin: Negative for rash. Neurological: Positive for headaches. Negative for seizures and syncope. Psychiatric/Behavioral: Negative for confusion. Physical Exam ED Triage Vitals [11/03/219] Temp Pulse Resp BP SpO2 36.8 ??C (98.2 ??F) 96 17 144/90 100 % Temp src Heart Rate Source Patient Position BP Location FiO2 (%) -- -- -- -- -- Height Height Method Weight Weight Method 1.626 m (5' 4 ) Stated 98.4 kg (217 lb) Stated Physical Exam Vitals and nursing note reviewed. Constitutional: General: She is not in acute distress. Appearance: She is not ill-appearing or diaphoretic. HENT: Head: Normocephalic and atraumatic. Mouth/Throat: Mouth: Mucous membranes are moist. Eyes: General: No scleral icterus. Extraocular Movements: Extraocular movements intact. Cardiovascular: Rate and Rhythm: Normal rate and regular rhythm. Pulmonary: Effort: Pulmonary effort is normal. No respiratory distress. Abdominal: General: There is no distension. Palpations: Abdomen is soft. Tenderness: There is no abdominal tenderness. Musculoskeletal: General: No swelling. Normal range of motion. Cervical back: Normal range of motion. Skin: General: Skin is warm and dry. Findings: No rash. Neurological: General: No focal deficit present. Mental Status: She is alert and oriented to person, place, and time. Mental status is at baseline. Comments: PERRL, EOMI, SILT V1-V3, normal smile/eye closure, normal speech, 5/5 shoulder shrug 5/5 strength BUE/BLE throughout SILT BUE/BLE throughout Normal B FNF Normal station/gait Psychiatric: Mood and Affect: Mood normal. Behavior: Behavior normal. MDM Medical Decision Making Differential Diagnosis or Management Options: 26-year-old woman with a history of diabetes, obesitycomplicated by ELLI, and tobacco use complicated by asthma who presents with headache and hyperglycemia. Suspect migraine. Doubt subarachnoid hemorrhage, meningitis, or other emergent headache syndrome. Likely reactive hyperglycemia with possible viral syndrome (recently positive for COVID). Doubt DKA. Doubt other emergent condition. Plan: Labs, IV fluids, pain control including dopamine antagonists, anticipatory guidance ED Course as of 11/04/21112 Time: 11/04 45 Value: WBC, ur: 0-5 Comment: Not consistent with infection By: Harvey Venegas MD Time: 11/05 51 Value: WBC(!): 11.9 Comment: Mild leukocytosis without neutrophilia By: Harvey Venegas MD Time: 11/04 106 Value: Glucose(!): 267 Comment: Hyperglycemia without evidence of DKA By: Harvey Venegas MD Time: 11/05 107 Value: ALT(!): 113 Comment: Near baseline mild transaminitis By: Harvey Venegas MD Time: 11/04 110 Value: HCG, ur: Negative Comment: (Reviewed) By: Harvey Venegas MD Time: 11/04 112 Comment: Remains well appearing. Will discharge with PCP follow-up after fluids. Return precautionsgiven. By: Harvey Venegas MD Final diagnoses: Other migraine without status migrainosus, not intractable Hyperglycemia Harvey Venegas MD 11/04/21112 * Sebastian Kelley RN - 11/03/2021 9:47 PM CDT Patient arrives to the ED with complaints of headache and hyperglycemia. Patient states she takes metformin and has not missed any doses. Patient states she does not use insulin at this time. Patientstates she took her sugar at tome and it was 424. Patient denies N/V at this time. Patient states she is having intermittent visual disturbances. documented in this encounter Plan of Treatment Not on file documented as of this encounter Procedures Procedure Name Priority Date/Time Associated Diagnosis Comments EGFR STAT 11/04/2021 12:37 AM CDT DIFFERENTIAL AUTO STAT 11/04/2021 12: 37 AM CDT CBC WITH AUTO DIFFERENTIAL STAT 11/04/2021 12:37 AM CDT COMPREHENSIVE METABOLIC PANEL STAT 11/04/2021 12:37 AM CDT URINALYSIS AND REFLEX TO MICROSCOPIC AND CULTURE STAT 11/03/2021 11:00 PM CDT HCG, URINE, QUALITATIVE Timed 11/03/2021 11:00 PM CDT URINALYSIS, MICROSCOPIC ONLY STAT 11/03/2021 11:00 PM CDT documented in this encounter Results * eGFR (11/04/2021 12:37 AM CDT) eGFR 117 mL/min/1. 73 m2 [facility] ([place]) Comment: [...] of Race in Diagnosing Kidney Disease, JASN 202). The CKD-EPI equation should not be used for patients with unstable renal function and has not been validated in children and those over 70. Current interpretive data was last reviewed 2021. Blood 11/04/2021 12:3 7 AM CDT 11/04/2021 12:41 AM CDT us Harvey Venegas MD LAB BLOOD ORDERABLE S Final Result [facility] ([place]) [address] [facility] Department [place] [address] * (ABNORMAL) Differential, auto (11/04/2021 12:37 AM CDT) Neutrophil abs 6.5 1.7 - 6.5 K/cumm [facility] ([place]) Imm gran abs 0.1 0.0 - 0.1 K/cumm [facility] ([place]) Lymphocyte abs 4.4(H) 0.8 - 3.3 K/cumm [facility] ([place]) Monocyte abs 0.6 0.2 - 0.8 K/cumm [facility] ([place]) Eosinophil abs 0.3 0.0 - 0.5 K/cumm [facility] ([place]) Basophil abs 0.1 0.0 - 0.1 K/cumm [facility] ([place]) Neutrophil pct 54.4 % [facility] ([place]) Comment: Interpretive Data Percent cell count reference ranges are not reported, since discordance with absolute values may lead to misinterpretation of CBC data. Current Interpretive Data was last revised on 2017. Imm gran pct 0.4 % [facility] ([place]) Comment: Interpretive Data Percent cell count reference ranges are not reported, since discordance with absolute values may lead to misinterpretation of CBC data. Current Interpretive Data was last revised on 2017. Lymphocyte pct 37.2 % [facility] ([place]) Comment: Interpretive Data Percent cell count reference ranges are not reported, since discordance with absolute values may lead to misinterpretation of CBC data. Current Interpretive Data was last revised on 2017. Monocyte pct 5.1 % [facility] ([place]) Comment: Interpretive Data [...] 2017. Basophil pct 0.5 % [facility] ([place]) Comment: Interpretive Data Percent cell count reference ranges are not reported, since discordance with absolute values may lead to misinterpretation of CBC data. Current Interpretive Data was last revised on 2017. Blood 11/04/2021 12:3 7 AM CDT 11/04/2021 12:41 AM CDT us Harvey Venegas MD LAB BLOOD ORDERABLE S Final Result [facility] ([place]) [address] [facility] Department [place] [address] * (ABNORMAL) Comprehensive metabolic panel (11/04/2021 12:37 AM CDT) Sodium 137 135 - 145 mmol/L [facility] ([place]) Potassium, pl 4.0 3.3 - 4.9 mmol/L [facility] ([place]) Chloride 98 97 - 110 mmol/L [facility] ([place]) CO2 28 22 - 32 mmol/L [facility] ([place]) Anion gap 11 2 - 15 mmol/L [facility] ([place]) BUN 9 8 - 25 mg/dL [facility] ([place]) Creatinine 0.72 0.60 - 1.10 mg/dL [facility] ([place]) Glucose 267(H) 70 - 199 mg/dL [facility] ([place]) [...] interpretive data was last revised 2017. Calcium 9.7 8.5 - 10.3 mg/dL [facility] ([place]) Bilirubin, total 0.3 0.1 - 1.2 mg/dL [facility] ([place]) Protein, pl 7.8 6.5 - 8.5 g/dL [facility] ([place]) Albumin 4.9 3.5 - 5.0 g/dL [facility] ([place]) Alk phos 121 40 - 130 Units/L [facility] ([place]) ALT 113(H) 7 - 45 Units/L [facility] ([place]) AST 71(H) 10 - 45 Units/L [facility] ([place]) Comment:Slightly Hemolyzed S pecimen Blood 11/04/2021 12:3 7 AM CDT 11/04/2021 12:41 AM CDT us Harvey Venegas MD LAB BLOOD ORDERABLE S Final Result [facility] ([place]) [address] [facility] Department [place] [address] * (ABNORMAL) CBC with auto differential (11/04/2021 12:37 AM CDT) WBC 11.9(H) 3.8 - 9.9 K/cumm [facility] ([place]) Hgb 14.6 11.9 - 15.5 g/dL [facility] ([place]) Hct 40.6 35.6 - 45.5 % [facility] ([place]) Plt 259 150 - 400 K/cumm [facility] ([place]) MPV 11.8 9.1 - 12.3 fL [facility] ([place]) RBC 4.65 3.90 - 5.20 M/cumm [facility] ([place]) MCV 87.3 81.3 - 96.4 fL [facility] ([place]) MCH 31.4 27.1 - 33.3 pg [facility] ([place]) MCHC 36.0(H) 32.3 - 35.7 g/dL [facility] ([place]) RDW CV 11.4 11.1 - 14.9 % [facility] ([place]) RDW SD 35.9 35.7 - 48.1 fL [facility] ([place]) NRBC abs 0.00 0.00 - 0.01 K/cumm [facility] ([place]) Blood 11/04/2021 12:3 7 AM CDT 11/04/2021 12:41 AM CDT us Harvey Venegas MD LAB BLOOD ORDERABLE S Final Result Performing Organization Address [facility] Co de Phone Number ILDA [facility] ([place]) 1 [facility] [place] [address] * hCG, urine, qualitative (11/03/2021 11:00 PM CDT) HCG, ur Negative Negative [facility] ([place]) Urine 11/03/2021 11:0 0 PM CDT 11/04/2021 12:59 AM CDT us Harvey Venegas MD LAB URINE ORDERABLE S Final Result Performing Organization Address [facility] de Phone Number [facility] ([place]) 1 [facility] [place] [address] * (ABNORMAL) Urinalysis, microscopic only (11/03/2021 11:00 PM CDT) WBC, ur 0-5 0 - 5 /HPF [facility] ([place]) RBC, ur 0-2 0 - 2 /HPF [facility] ([place]) Epithelial cells, squamous, ur 1-5 0 - 5 /HPF [facility] ([place]) Bacteria, ur Trace(A) [facility] ([place]) Mucous, ur Present(A) [facility] ([place]) Culture Reflex Comment Reflex conditions for urine culture (WBC >10) not met. [facility] ([place]) Urine 11/03/2021 11:0 0 PM CDT 11/03/2021 11:06 PM CDT Harvey Venegas MD LAB URINE ORDERABLE S Final Result Performing Organization Address [facility] Co de Phone Number [facility] ([place]) [address] [facility] Department [place] [address] * (ABNORMAL) Urinalysis reflex to microscopic and culture Urine (11/03/2021 11:00 PM CDT) Color, ur Yellow Yellow [facility] ([place]) Clarity, ur Clear Clear [facility] ([place]) Specific gravity, ur 1.028 1.003 - 1.030 [facility] ([place]) pH, urine 6.0 [facility] ([place]) Protein, ur ql Negative Negative [facility] ([place]) Glucose, ur ql 4+(A) Negative [facility] ([place]) Ketones, ur Negative Negative [facility] ([place]) Bilirubin, ur Negative Negative [facility] ([place]) Blood, ur 3+(A) Negative [facility] ([place]) Urobilinogen, ur <2.0 <2.0 mg/dL [facility] ([place]) Nitrite, ur Negative Negative [facility] ([place]) Leukocyte esterase, ur Negative Negative [facility] ([place]) UA reflex comment Reflex to microscopic UA will be performed. [facility] ([place]) Urine 11/03/2021 11:0 0 PM CDT 11/03/2021 11:06 PM CDT Narrative [facility] ([place]) - 11/03/2021 11:14 PM CDT ?? Urine pH is affected by diet, medications, systemic acid-base disturbances, and renal tubular function. ??pH may affect urinary stone formation. ??For example, urine pH below 6.0 may help reduce the tendency for calcium phosphate stones and pH greater than 6.0 may reduce the tendency for uric acid stone formation. Source: [employer]. Last revised 05-07-2017 us Harvey Venegas MD LAB MICROBIOLOGY - GENERAL ORDERABLES Final Result [facility] ([place]) [address] [facility] Department [place] [address] documented in this encounter Visit Diagnoses Diagnosis Other migraine without status migrainosus, not intractable- Primary Hyperglycemia Other abnormal glucose documented in this encounter Administered Medications Inactive Administered Medications - up to 3 most recent administrations Medication Order MAR Action Action Date Dose Rate Site acetaminophen (TYLENOL) tablet 1,000 mg 1,000 mg, oral, Once, On Thu11/04/21 at 0054, For 1 dose Given 11/04/2021 1:11 AM CDT 1,000 mg prochlorperazine (COMPAZINE) injection 10 mg 10 mg, intravenous, Administer over 10 Minutes, Once, On Thu11/04/21 at 0054, For 1 dose Given 11/04/2021 1:12 AM CDT 10 mg sodium chloride 0.9% bolus 1,000 mL 1,000 mL, intravenous, Once, On Thu11/04/21 at 0054, For 1 dose New Bag 11/04/2021 1:11 AM CDT 1,000 mL documented in this encounter Active and Recently Administered Medications Times are shown in CDT. Scheduled Medication Order 11/02/2021 11/03/2021 11/04/2021 acetaminophen (TYLENOL) tablet 1,000 mg (COMPLETED) 1,000 mg, oral, Once, On Thu11/04/21 at 0054, For 1 dose 0111 (Given - Provid er: Chayo Mccormick RN) prochlorperazine (COMPAZINE) injection 10 mg (COMPLETED) 10 mg, intravenous, Administer over 10 Minutes, Once, On Thu11/04/21 at 0054, For 1 dose 0112 (Given - Provid er: Chayo Mccormick RN) sodium chloride 0.9% bolus 1,000 mL (COMPLETED) 1,000 mL, intravenous, Once, On Thu11/04/21 at 0054, For 1 dose 0111 (New Bag - Prov ider: Chayo Mccormick RN)[id number] (Stopped - Provider: Chayo Mccormick RN) documented in this encounter Care Teams Dairy Equipment Specialist Relationship Specialty Start Date End Date Melanie, Jessica Pinto NP [address] [place] [address] PCP - General 08/23/20 documented as of this encounter
--- OUTSIDE RECORDS SUMMARY | 2024-04-14 18:33 | XMS_ITS | Encounter Summary ---
Author Organization [facility] Medical Group Address [address] [address] Care Team Providers Care Warp Dyeing Tender Name Role Phone Jessica Navarro NP Primary Care Provider [phone] Reason for Visit * Reason Comments Follow-up Encounter Details Date Type Department Care Team (Late st Contact Info) Description 08/09/2020 9:40 AM CDT Office Visit [facility] [address] [place] [address] Kishan Broussard MD [address] [address] Nontraumatic rupture of tendons of left foot and ankle (Primary Dx) Social History Tobacco Use Types Packs/Day Years Used Date Smoking Tobacco: Every Day Cigarettes Alcohol Use Standard Drinks/Week Comments Never 0 (1 standard drink = 0.6 oz pur e alcohol) AUDIT-C Answer Date Recorded Q1: How often do you have a drink containing alc ohol? Never 07/26/2019 Average Number of Drinks Not on file 020 Frequency of Binge Drinking Not on file 06/27 Comments No Sex and Gender Information Value Date Recorded Sex Assigned at Not on file Legal Sex Female 11:31 AM CDT Gender Identity Not on file Sexual Orientation Not on file documented as of this encounter Last Filed Vital Signs Vital Sign Reading Time Taken Comments Blood Pressure - - Pulse - - Temperature 36 ??C (96.8 ??F) 08/09/2020 9:29 AM CDT Respiratory Rate - - Oxygen Saturation - - Inhaled Oxygen Concentration - - Weight 88.5 kg (195 lb) 08/09/2020 9:29 AM CDT Height 160 cm (5' 3 ) 08/09/2020 9:29 AM CDT Body Mass Index 34.54 08/09/2020 9:29 AM CDT documented in this encounter Progress Notes * Kishan Broussard MD - 08/09/2020 9:40 AM CDT Patient attends today having done slightly better with medication. She still has occasional poppingand discomfort particularly exacerbated by physical therapy at this point. Examination confirms no obvious deformity or crepitation/popping. Gait pattern is normal. Diagnosis-status post left medial ankle tendon repair. Plan-hold on physical therapy. Mobilize as tolerated. OTC NSAIDs. Return to this office in 4 weeks. documented in this encounter Plan of Treatment Not on file documented as of this encounter Visit Diagnoses Diagnosis Nontraumatic rupture of tendons of left foot and ankle- Primary documented in this encounter Care Teams Warp Dyeing Tender Relationship Specialty Start Date End Date Jessica Navarro NP [address] [place] [address] PCP - General 07/26/19 08/22/20 documented as of this encounter
--- OUTSIDE RECORDS SUMMARY | 2024-04-14 18:33 | XMS_ITS | Encounter Summary ---
Author Organization [facility] Medical Group Address [address] [facility] [address] [place] [address] Care Team Providers Care Sawyer Cork Slabs Name Role Phone Jessica Navarro NP Primary Care Provider Encounter Details Date Type Department Care Team (Late st Contact Info) Description 08/29/2020 Telephone [facility] Orthopedics and Sports Medicine [address] [facility] [address] [address] Irvin Wolff MA Social History Tobacco Use Types Packs/Day [...] encounter Miscellaneous Notes * Telephone Encounter - Irvin Wolff MA - 08/29/2020 3:00 PM CDT After Berna reviewed chart, she determined this is something that Dr. Burgess doesn't do and that this patient needs to see an ankle and software development specialist at [facility]. I called and spoke to [facility] office letting them know and they agree and said they will take care of that referral. * Telephone Encounter - Irvin Wolff MA - 08/29/2020 1:44 PM CDT Patient was here for a second opinion referred by her PCP and was scheduled with Berna. Per Berna shecan't give a surgical clearance on a surgery we didn't do and pt needs to see Dr. Burgess for the second opinion. Patient was scheduled with Dr. Burgess. documented in this encounter Plan of Treatment Not on file documented as of this encounter Visit Diagnoses Not on filedocumented in this encounter Care Teams Sawyer Cork Slabs Relationship Specialty Start Date End Date Melanie, Jessica Pinto NP [address] [place] [address] PCP - General 08/23/20 documented as of this encounter
--- OUTSIDE RECORDS SUMMARY | 2024-04-14 18:33 | XMS_ITS | Encounter Summary ---
Author Organization [facility] Healthcare Address [address] [place] [address] Care Team Providers Care Carding Machine Operator Name Role Phone Jessica Navarro NP Primary Care Provider Reason for Visit * Reason Comments Hyperglycemia Encounter Details Date Type Department Care Team (Late st Contact Info) Description 10/30/2020 2:00 PM CDT - 10/30/2020 5:54 PM CDT Emergency [facility] Emergency Department [address] [place] [address] Harvey Venegas MD [address] [place] [address] Type 2 diabetes mellitus without complication, without long-term current use of insulin ([facility]) (Primary Dx); Acute cystitis without hematuria Discharge Disposition: Discharge to home or self [...] Sign Reading Time Taken Comments Blood Pressure 118/74 10/30/2020 5:30 PM CDT Pulse 66 10/30/2020 5:30 PM CDT Temperature 36.2 ??C (97.1 ??F) 10/30/2020 1:57 PM CD T Respiratory Rate 16 10/30/2020 4:44 PM CDT Oxygen Saturation 97% 10/30/2020 5:30 PM CDT Inhaled Oxygen Concentration - - Weight 87.5 kg (193 lb) 10/30/2020 1:57 PM CDT Height 157.5 cm (5' 2 ) 10/30/2020 1:57 PM CDT Body Mass Index 35.3 10/30/2020 1:57 PM CDT documented in this encounter Discharge Diagnoses Diagnosis Type 2 diabetes mellitus without complications (CMS/HCC) (HCC) - TYPE 2 DIABETES MELLITUS WITHOUT COMPLICATIONS Acute cystitis without hematuria - ACUTE CYSTITIS WITHOUT HEMATURIA Personal history of nicotine dependence - PERSONAL HISTORY OF NICOTINE DEPENDENCE documented in this encounter Discharge Instructions * Discharge Instructions* Harvey Venegas MD - 10/30/2020 5:34 PM CDT Thank you for the opportunity to care for you today! You were evaluated for elevated blood sugar and diagnosed with diabetes and possible UTI. You had blood tests that were consistent with diabetes. You should follow-up with your primary doctor in the next week. Return to the ED for fever, uncontrolled nausea, or other concerns. You should take the newly prescribed metformin and antibiotic unless directed otherwise. We sincerely hope you feel better soon! documented in this encounter Medications at Time of Discharge albuterol HFA (PROVENTIL HFA,VENTOLIN HFA,PROAIR HFA) 90 mcg/actuation inhaler Inhale 2 puffs every 4 (four) hours as needed for wheezing 1 Inhaler 05/14/2020 4 benzonatate (TESSALON) 100 mg capsuleIndications:C ough Take 1 capsule (100 mg total) by mouth 3 (three) times a day as needed for cough 15 capsule 05/14/2020 3 hydrOXYzine (VISTARIL) 25 mg capsule Take 25 mg by mouth 3 (three) times a day as needed for itching 1 metFORMIN (GLUCOPHAGE) 500 mg tablet Take 1 [...] needed for nausea or vomiting. 15 tablet 08/23/2020 2 TiZANidine (ZANAFLEX) 2 mg capsuleIndications:M uscle Spasm Take 2 mg by mouth 3 (three) times a day as needed for muscle spasms 1 documented as of this encounter Ordered Prescriptions Prescription Sig Dispense Quantity Refills Last Filled Start Date End Date metFORMIN (GLUCOPHAGE) 500 mg tablet Take 1 tablet (500 mg total) by mouth 2 (two) times a day with meals 60 tablet 10/30/2020 3 nitrofurantoin monohydrate (MACROBID) 100 mg capsule Take 1 capsule (100 mg total) by mouth 2 (two) times a day 10 capsule 10/30/2020 3 documented in this encounter Discharge Disposition Disposition Code Departure Means Destination Discharge to home or self care documented in this encounter ED Notes * Harvey Venegas MD - 10/30/2020 4:33 PM CDT HPI Chief Complaint Patient presents with ??? Hyperglycemia Patient is a 25-year-old woman with a history of obesity who presents with concerns for hyperglycemia. States that she has felt dehydrated for the past several days. Also with polydipsia and polyuriawith questionable dysuria. Denies fever, chills, chest pain, dyspnea, abdominal pain, BM changes, or other complaints. Took sugar earlier today and noted it was in the upper 400s. Patient History: Patient Active Problem List Diagnosis Date Noted ??? Acquired deformity of left toe 03/29/2020 Past Medical History: Diagnosis Date ??? Anxiety ??? Asthma ??? Depression ??? GERD (gastroesophageal reflux disease) ??? Thyroid disease Past Surgical History: Procedure Laterality Date ??? ANKLE SURGERY ??? BREAST SURGERY breast reduction ??? THYROID SURGERY Family History Problem Relation Age of Onset ??? Heart disease Other ??? Hypertension Other ??? Cancer Other ??? Arthritis Other ??? Diabetes Other Social History Tobacco Use ??? Smoking status: Former Smoker Packs/day: 1.00 Types: Cigarettes ??? Smokeless tobacco: Never Used Substance Use Topics ??? Alcohol use: Never ??? Drug use: Never Social History Social History Narrative ??? Not on file Review of Systems Review of Systems Constitutional: Negative for chills and fever. HENT: Negative for congestion, rhinorrhea and sore throat. Eyes: Negative for visual disturbance. Respiratory: Negative for cough and shortness of breath. Cardiovascular: Negative for chest pain. Gastrointestinal: Negative for abdominal pain, constipation, diarrhea, nausea and vomiting. Endocrine: Positive for polydipsia and polyuria. Genitourinary: Positive for dysuria. Negative for frequency and urgency. Musculoskeletal: Negative for myalgias. Skin: Negative for rash. Neurological: Positive for weakness. Negative for seizures, syncope and headaches. Psychiatric/Behavioral: Negative for confusion. Physical Exam ED Triage Vitals [10/30/20 1357] Temp Pulse Resp BP SpO2 36.2 ??C (97.1 ??F) 96 18 (!) 154/108 98 % Temp src Heart Rate Source Patient Position BP Location FiO2 (%) Temporal -- -- -- -- Physical Exam Vitals and nursing note [...] and time. Mental status is at baseline. Psychiatric: Mood and Affect: Mood normal. Behavior: Behavior normal. MDM Medical Decision Making Differential Diagnosis or Management Options: 25-year-old woman with a history of obesity presents with likely new onset diabetes. Doubt DKA. Doubt significant electrolyte abnormalities. Doubt other emergent condition. Plan: Labs from triage which, IV fluids, empiric treatment for UTI, metformin initiation and outpatient follow-up ED Course as of Oct 30 1734 Time: 10/31 1631 Comment: CBC unremarkable By: Harvey Venegas MD Time: 10/30 1632 Value: Glucose(!): 398 Comment: Hyperglycemia without evidence of DKA By: Harvey Venegas MD Time: 10/30 1632 Comment: Baseline mild transaminitis By: Harvey Venegas MD Time: 10/30 1632 Value: pH, Venous: 7.38 Comment: Not consistent with DKA By: Harvey Venegas MD Time: 10/30 1733 Value: WBC, ur(!): 21-50 Comment: Possible UTI By: Harvey Venegas MD Time: 10/30 1734 Comment: Workup otherwise unremarkable. Will discharge with nitrofurantoin, metformin, and PCP follow-up. Return precautions given. By: Harvey Venegas MD Final diagnoses: Type 2 diabetes mellitus without complication, without long-term current use of insulin ([facility]) Acute cystitis without hematuria Harvey Venegas MD 10/30/201734 * Lilli Reyes, HSERIDAN - 10/30/2020 1:54 PM CDT Pt states that she has been shaky, feeling faint, blurred vision, increased urination, and dry mouth over the past week. Pt states that she woke up today with blurred vision and felt like she was going to pass out. Pt used a friend's glucometer and it read 483. Pt states that she has never been Dx with diabetes, but has been told she is borderline diabetic since she was a teenager. Pt called her PCP and was told to come to ER. documented in this encounter Miscellaneous Notes * ED Procedure Note - Harvey Venegas MD - 10/30/2020 4:54 PM CDT Associated Order(s): ECG 12 lead Procedure ECG 12 lead Date/Time: 10/30/2020 4:54 PM Performed by: Harvey Venegas MD Authorized by: Harvey Venegas MD Rate: ECG rate: 74 ECG rate assessment: normal Rhythm: Rhythm: sinus rhythm ST segments: ST segments: Normal T waves: T waves: normal Recommended Follow-up: Recommended follow up: further workup in the ED Harvey Venegas MD 10/30/20 1654 * ED Triage Provider Note - Archana Jones NP - 10/30/2020 1:58 PM CDT Polydipsia and polyuria for 1 week. Pt used friends glucometer today and blood sugar was 483. Dizziness, fatigue as well. Denies PMHX diabetes. Blurred vision while wearing glasses. Cosigned by Harvey Venegas MD at 10/30/2020 2:04 PM CDT documented in this encounter Plan of Treatment Not on file documented as of this encounter Procedures Procedure Name Priority Date/Time Associated Diagnosis Comments ECG 12-LEAD STAT 10/30/2020 4:52 PM CDT URINALYSIS AND REFLEX TO MICROSCOPIC AND CULTURE STAT 10/30/2020 3:07 PM CDT URINALYSIS, MICROSCOPIC ONLY STAT 10/30/2020 3:07 PM CDT URINE CULTURE STAT 10/30/2020 3:07 PM CDT EGFR STAT 10/30/2020 2:16 PM CDT DIFFERENTIAL AUTO STAT 10/30/2020 2:1 6 PM CDT BETA-HYDROXYBUTYRATE STAT 10/30/2020 2:16 PM CDT CBC WITH AUTO DIFFERENTIAL STAT 10/30/2020 2:16 PM CDT BLOOD GAS, VENOUS STAT 10/30/2020 2:1 6 PM CDT COMPREHENSIVE METABOLIC PANEL STAT 10/30/2020 2:16 PM CDT POCT GLUCOSE DEVICE Routine 10/30/2020 2 :13 PM CDT documented in this encounter Results * ECG 12 lead (10/30/2020 4:52 PM CDT) 10/30/2020 4:52 PM CDT Narrative [facility] - 10/31/2020 8:07 AM CDT Vent Rate: 74 bpm RR Interval: 804 msec ME Interval: 193 msec QRS Duration: 92 msec QT Interval: 387 msec QTC Interval: 415 msec P-R-T [place]: 36 - 7 - 20 degrees SINUS RHYTHM WITH SINUS ARRHYTHMIA NORMAL ECG No change from prior EKG Electronically Signed By: Giovanny Olguin MD us Harvey Venegas MD ECG ORDERABLES Fin al Result [facility] [employer] [facility] * Urine culture Urine (10/30/2020 3:07 PM CDT) Report Final Report: Less than 100,000 colonies/mL (clinically insignificant growth based on current clinical standards) ILDA ARGUELLES ([place]) Comment:Testing performed by : [facility], [address] [place]., [address] Organism (CLINICALLY INSIGNIFICANT GROWTH ILDA ARGUELLES ([place]) Urine 10/30/2020 3:07 PM CDT 10/30/2020 8:32 PM CDT Narrative ILDA TAYLOR) - 11/02/2020 6:45 AM CDT Urine culture reflexed based upon urinalysis results. Testing performed by [facility] ([phone]) us Harvey Venegas MD LAB MICROBIOLOGY - GENERAL ORDERABLES Final Result Performing Organization Address City/[facility]/ZIP Co de Phone Number ILDA TAYLOR) 1 [facility] Department [place] [address] * (ABNORMAL) Urinalysis, microscopic only (10/30/2020 3:07 PM CDT) WBC, ur 21-50(A) 0 - 5 /HPF [facility] ([place]) RBC, ur 21-50(A) 0 - 2 /HPF [facility] ([place]) Epithelial cells, squamous, ur 1-5 0 - 5 /HPF [facility] ([place]) Bacteria, ur Trace(A) [facility] ([place]) Culture Reflex Comment Reflex to urine culture will be performed. [facility] ([place] Urine 10/30/2020 3:07 PM CDT 10/30/2020 3:11 PM CDT us Harvey Venegas MD LAB URINE ORDERABLE S Final Result ILDA ARGUELLES ([place]) 1 [facility] Department [place] [address] * (ABNORMAL) Urinalysis reflex to microscopic and culture Urine (10/30/2020 3:07 PM CDT) Color, ur Yellow Yellow [facility] ([place]) Clarity, ur Turbid(A) Clear [facility] ([place]) Specific gravity, ur 1.039(H) 1.010 - 1.025 [facility] ([place]) pH, urine 6.0 [facility] ([place]) Protein, ur ql Trace Negative [facility] ([place]) Glucose, ur ql 4+(A) Negative [facility] ([place]) Ketones, ur 2+(A) Negative [facility] ([place]) Bilirubin, ur Negative Negative [facility] ([place]) Blood, ur 1+(A) Negative [facility] ([place]) Urobilinogen, ur <2.0 <2.0 mg/dL [facility] ([place]) Nitrite, ur Negative Negative [facility] A ([place]) Leukocyte esterase, ur 4+(A) Negative [facility] ([place]) UA reflex comment Reflex to microscopic UA will be performed. [facility] ([place]) Urine 10/30/2020 3:07 PM CDT 10/30/2020 3:11 PM CDT Narrative ILDA ARGUELLES ([place]) - 10/30/2020 3:32 PM CDT ?? Urine pH is affected by diet, medications, systemic acid-base disturbances, and renal tubular function. ??pH may affect urinary stone formation. ??For example, urine pH below 6.0 may help reduce the tendency for calcium phosphate stones and pH greater than 6.0 may reduce the tendency for uric acid stone formation. Source: [employer]. Last revised 05-07-2017 us Harvey Venegas MD LAB MICROBIOLOGY - GENERAL ORDERABLES Final Result ILDA ARGUELLES ([place]) 1 [facility] Department [place] [address] * eGFR (10/30/2020 2:16 PM CDT) eGFR 119 mL/min/1.7 3 m2 ILDA BLANE ([place]AM[place]) Comment: Interpretive Data Reference Interval Normal ?>/= 90 mL/min/1.73m2 Mildly decreased* ? 60 - 89 mL/min/1.73m2 Mildly to moderately decreased ?45 - 59 mL/min/1.73m2 Moderately to severely decreased ??30 - 44 mL/min/1.73m2 Severely decreased ?15 - 29 mL/min/1.73m2 Kidney Failure ?< 15 ??mL/min/1.73m2 *Relative to young adult level Estimated glomerular filtration rate is determined by the CKD-EPI equation recommended by the National Kidney Foundation (KDIGO 2012 Clinical Practice Guideline for the Evaluation and Management of Chronic Kidney Disease. Kidney Intnl Suppl Apr 2012;3:1). The CKD-EPI equation should not be used for patients with unstable renal function and has not been validated in children and those over 70. Current interpretive data was last reviewed 2020 Blood specimen (specimen) 10/30/2020 2:16 PM CDT 10/30/2020 2:18 PM CDT Archana Jones NP LAB BLOOD ORDERABLES Final Result [facility] ([place]) 1 [facility] Department [place] [address] * (ABNORMAL) Differential, auto (10/30/2020 2:16 PM CDT) Neutrophil abs 5.1 1.7 - 6.5 K/cumm [facility] ([place]) Imm gran abs 0.0 0.0 - 0.1 K/cumm [facility] ([place]) Lymphocyte abs 3.7(H) 0.8 - 3.3 K/cumm [facility] ([place]) Monocyte abs 0.5 0.2 - 0.8 K/cumm [facility] ([place]) Eosinophil abs 0.3 0.0 - 0.5 K/cumm [facility] ([place]) Basophil abs 0.1 0.0 - 0.1 K/cumm [facility] ([place]) Neutrophil pct 52.7 % [facility] ([place]) Comment: Interpretive Data Percent cell count reference ranges are not reported, since discordance with absolute values may lead to misinterpretation of CBC data. Current Interpretive Data was last revised on 2017. Imm gran pct 0.4 % [facility] ([place]) Comment: Interpretive Data Percent cell count reference ranges are not reported, since discordance with absolute values may lead to misinterpretation of CBC data. Current Interpretive Data was last revised on 2017. Lymphocyte pct 38.3 % [facility] ([place]) Comment: Interpretive Data Percent cell count reference ranges are not reported, since discordance with absolute values may lead to misinterpretation of CBC data. Current Interpretive Data was last revised on 2017. Monocyte pct 4.8 % [facility] ([place]) Comment: Interpretive Data Percent cell count reference ranges are not reported, since discordance with absolute values may lead to misinterpretation of CBC data. Current Interpretive Data was last revised on 2017. Eosinophil pct 2.9 % [facility] ([place]) Comment: Interpretive Data Percent cell count reference ranges are not reported, since discordance with absolute values may lead to misinterpretation of CBC data. Current Interpretive Data was last revised on 2017. Basophil pct 0.9 % [facility] BLANE ([place]) Comment: Interpretive Data Percent cell count reference ranges are not reported, since discordance with absolute values may lead to misinterpretation of CBC data. Current Interpretive Data was last revised on 2017. Blood specimen (specimen) 10/30/2020 2:16 PM CDT 10/30/2020 2:18 PM CDT us Archana Jones NP LAB BLOOD ORDERABLES Final Result Performing Organization Address [facility]/ZIP Co de Phone Number ILDA ARGUELLES ([place]) 1 [facility] [place] [address] * (ABNORMAL) Beta-hydroxybutyrate (10/30/2020 2:16 PM CDT) Beta-Hydroxybu tyrate 0.7(H) <=0.5 mmol/L ILDA ARGUELLES ([place]AM[place]) Comment:Testing performed by : [facility], [address] [place] [address]., [id number] Blood specimen (specimen) 10/30/2020 2:16 PM CDT 10/30/2020 6:37 PM CDT Harvey Venegas MD LAB BLOOD ORDERABLE S Final Result Performing Organization Address City/[facility]/ZIP Co de Phone Number ILDA [facility] ([place]) 1 [facility] [place] [address] * Blood gas, venous (10/30/2020 2:16 PM CDT) pH, Venous 7.38 7.32 - 7.43 [facility] ([place]) PCO2, Venous 46 40 - 50 mmHg [facility] ([place]) PO2, Venous 31 mmHg [facility] A ([place]) Comment: Interpretive Data No Reference Range Established Current Interpretive Data was last revised on 2017. HCO3 Venous, Calculated 26 20 - 30 mmol/L [facility] ([place]) BE, venous 1 mmol/L [facility] ([place]) Comment: Interpretive Data No Reference Range Established Current Interpretive Data was last revised on 2017. Blood specimen (specimen) 10/30/2020 2:16 PM CDT 10/30/2020 2:18 PM CDT us Harvey Venegas MD LAB BLOOD ORDERABLE S Final Result [facility] ([place]) 1 [facility] Department [place] [address] * (ABNORMAL) CBC with auto differential (10/30/2020 2:16 PM CDT) WBC 9.7 3.8 - 9.9 K/cumm [facility] ([place]) Hgb 14.6 11.9 - 15.5 g/dL [facility] ([place]) Hct 40.5 35.6 - 45.5 % [facility] ([place]) Plt 225 150 - 400 K/cumm [facility] ([place]) MPV 12.0 9.1 - 12.3 fL [facility] ([place] RBC 4.69 3.90 - 5.20 M/cumm [facility] ([place]) MCV 86.4 81.3 - 96.4 fL [facility] ([place]) MCH 31.1 27.1 - 33.3 pg [facility] ([place] MCHC 36.0(H) 32.3 - 35.7 g/dL [facility] ([place]) RDW CV 11.3 11.1 - 14.9 % [facility] ([place]) RDW SD 35.4(L) 35.7 - 48.1 fL [facility] ([place] NRBC abs 0.00 0.00 - 0.01 K/cumm [facility] ([place]) Blood specimen (specimen) 10/30/2020 2:16 PM CDT 10/30/2020 2:18 PM CDT us Archana Jones FURNACE PUNCHER LAB BLOOD ORDERABLES Final Result ILDA [facility] ([place]) 1 [facility] Department [place] [address] * (ABNORMAL) Comprehensive metabolic panel (10/30/2020 2:16 PM CDT) Sodium 132(L) 135 - 145 mmol/L [facility] ([place]) Potassium, pl 3.9 3.3 - 4.9 mmol/L [facility] ([place]) Chloride 95(L) 97 - 110 mmol/L [facility] ([place]) CO2 25 22 - 32 mmol/L [facility] ([place]) Anion gap 12 2 - 15 mmol/L [facility] ([place]) BUN 6(L) 8 - 25 mg/dL [facility] ([place]) Creatinine 0.69 0.60 - 1.10 mg/dL [facility] ([place]) Glucose 398(H) 70 - 199 mg/dL [facility] ([place]) [...] interpretive data was last revised 2017. Calcium 9.1 8.5 - 10.3 mg/dL [facility] ([place]) Bilirubin, total 0.6 0.1 - 1.2 mg/dL [facility] ([place]) Protein, pl 7.8 6.5 - 8.5 g/dL [facility] ([place]) Albumin 4.8 3.5 - 5.0 g/dL [facility] ([place]) Alk phos 118 40 - 130 Units/L [facility] ([place]) ALT 101(H) 7 - 45 Units/L [facility] ([place]) AST 119(H) 10 - 45 Units/L [facility] ([place]) Blood specimen (specimen) 10/30/2020 2:16 PM CDT 10/30/2020 2:18 PM CDT us Archana Jones FURNACE PUNCHER LAB BLOOD ORDERABLES Final Result ILDA ARGUELLES ([place]) 1 [facility] [place] [address] * (ABNORMAL) POCT glucose (10/30/2020 2:13 PM CDT) [facility] Signature Glucose, POC 407(H) 71 - 98 mg/dL [facility] ([place]) Blood specimen (specimen) 10/30/2020 2:13 PM CDT 10/30/2020 2:13 PM CDT us Notinfile Unknown LAB POCT ORDERABLES - DEVICE F inal Result Performing Organization Address [facility] Co de Phone Number ILDA ARGUELLES ([place]) 1 [facility] [place] [address] documented in this encounter Visit Diagnoses Diagnosis Type 2 diabetes mellitus without complication, without long-term current use of insulin ([facility]/H[facility]) ([facility])- Primary Acute cystitis without hematuria documented in this encounter Administered Medications Inactive Administered Medications - up to 3 most recent administrations Medication Order MAR Action Action Date Dose Rate Site Lactated Ringer's (LR) bolus 1,000 mL 1,000 mL, intravenous, Once, On Thu10/30/20 at 1642, For 1 dose New Bag 10/30/2020 4:44 PM CDT 1,000 mL ondansetron (ZOFRAN) injection 4 mg 4 mg, intravenous, Administer over 2 Minutes, Once, On Thu10/30/20 at 1358, For 1 dose, Indications: Nausea, VomitingIndications:Nausea, Vomiting Given 10/30/2020 2:20 PM CDT 4 mg sodium chloride 0.9% bolus 1,000 mL 1,000 mL, intravenous, at 1,000 mL/hr, Administer over 1 Hours, Once, On Thu10/30/20 at 1358, For 1 dose New Bag 10/30/2020 2:20 PM CDT 1,000 mL 1000 mL/hr documented in this encounter Active and Recently Administered Medications Times are shown in CDT. Scheduled Medication Order 10/28/2020 10/29/2020 10/30/2020 Lactated Ringer's (LR) bolus 1,000 mL (COMPLETED) 1,000 mL, intravenous, Once, On Thu10/30/20 at 1642, For 1 dose 1644 (New Bag - Prov ider: Yasemin Crain RN)1753 (Stopped - Provider: Yasemin Crain RN) ondansetron (ZOFRAN) injection 4 mg (COMPLETED) 4 mg, intravenous, Administer over 2 Minutes, Once, On Thu10/30/20 at 1358, For 1 dose, Indications: Nausea, Vomiting 1420 (Given - Provid er: Molly Johnson RN) sodium chloride 0.9% bolus 1,000 mL (COMPLETED) 1,000 mL, intravenous, at 1,000 mL/hr, Administer over 1 Hours, Once, On Thu10/30/20 at 1358, For 1 dose 1420 (New Bag - Prov ider: Molly Johnson RN)1639 (Stopped - Provider: Yasemin Crain RN) documented in this encounter Orders Lab Orders Without Results Count Last Ordered D ate First Ordered Date POCT GLUCOSE DEVICE 1 10/30/2020 IV Count Last Ordered Date First Orde red Date INSERT PERIPHERAL IV 1 10/30/2020 documented in this encounter Care Teams Carding Machine Operator Relationship Specialty Start Date End Date Navarro, Jessica Pinto NP [address] [place] [address] PCP - General 08/23/20 documented as of this encounter
--- OUTSIDE RECORDS SUMMARY | 2024-04-14 18:33 | XMS_ITS | Encounter Summary ---
Author Organization [facility] Healthcare Address [address] [place] [address] Care Team Providers Care Leather Coater Name Role Phone MelanieJohnJessicalambert Pinto NP Primary Care Provider Reason for Visit * Reason Comments PT Treatment Encounter Details Date Type Department Care Team (Late st Contact Info) Description 09/17/2020 1:45 PM CDT Therapy [facility] Physical Therapy [address] [place] [phone] Jaye Zayas, PT Radiculopathy, thoracic region (Primary Dx) Social History Tobacco Use Types [...] as of this encounter Progress Notes * Jaye Zayas, PT - 09/17/2020 1:45 PM CDT PT Daily Treatment Note Lilli Santos 1995 Subjective: Pt states her back pain is 5.5 today. She states she is not sure what is helping the most. She states the traction is a bit sore right when she gets off but then she will get some relief for a few hours afterwards. She states the pain gets less but she still has the numb feeling. She states it does not seem to improve any of the pain the right leg. Pt does states she likes the IFC andMHP and it seems to help. Objective: Treatment Provided: * indicates not performed today Sitting on Edge of treatment table: -sitting trunk flexion reaching to the floor x 5* -sitting rolling large silver ball fwd x 10 then diagonal to each side x 10 (pt reports more of a stretch to the left and more discomfort going to the right. ) Quadruped rocking back toward heels x 10* Quadruped angry cat ex x10* Pelvic traction int 30/10 x 10 min 80#/40# Prone IFC to lower back with MHP x 10 min. (no ext ex this date)(nothing below performed) Prone over 1 pillow under pelvis Prone on elbows Hold 30 sec x 4 Prone press ups x attempted x 4, too painful. (pt states it feels like it is pinching) Hooklying low abdominal contraction 3 x10* Prone bilat hip IR stretch x 3 (pt reported no stretching) Prone right LE hip ER, IR with palm of hand over the piriformis (pt rep stretching in the glut withthe ER) Piriformis stretch with use of strap 15 x5 R (doing as HEP) Figure 4 for piriformis stretch 15 x4 R Clam shells x10 R --added to HEP* Supine manual piriformis stretch x 4 Standing against the wall pelvic shift with right hand on wall and left hand self assisting moving hips to the right. 30 sec hold x 30 sec. * Treatment Ideas Modalities for mm relaxation Prone passive shift of pelvis to the right Go into prone on elbows and prone press ups as tolerated Progress with extension ex May try mechanical pelvic traction ktape as indicated ?? Assessment: Pt tolerated treatment well. She seems to get some temporary relief from the traction. Plan: Continue to see pt per POC and advance as tolerated. Start Time: 1345 End Time: 1430 Jaye Zayas, PT, DPT documented in this encounter Plan of Treatment Not on file documented as of this encounter Visit Diagnoses Diagnosis Radiculopathy, thoracic region- Primary Thoracic or lumbosacral neuritis or radiculitis, unspecified documented in this encounter Care Teams Leather Coater Relationship Specialty Start Date End Date Melanie, Jessica Pinto NP [address] [place] [address] PCP - General 08/23/20 documented as of this encounter
--- OUTSIDE RECORDS SUMMARY | 2024-04-14 18:33 | XMS_ITS | Encounter Summary ---
Author Organization [facility] Address [address] [facility] [address] [place] [address] Phone Care Team Providers Care Signal Operator Linguist Name Role Phone Jessica Navarro NP Primary Care Provider Encounter Details Date Type Department Care Team (Late st Contact Info) Description 04/03/2021 Orders Only [facility] Orthopaedic Surgery [address] [place] [address] Sheba Osorio RMA Social History Tobacco Use Types Packs/Day [...] on filedocumented in this encounter Care Teams Signal Operator Linguist Relationship Specialty Start Date End Date Jessica Navarro NP [address] [place] [address] PCP - General 08/23/20 documented as of this encounter
--- OUTSIDE RECORDS SUMMARY | 2024-04-14 18:33 | XMS_ITS | Encounter Summary ---
Author Organization [facility] Address [address] [facility] [address] [place] [address] Phone Care Team Providers Care Cigar Packer Name Role Phone Melanie, Jessica Pinto NP Primary Care Provider [phone] Reason for Referral * Diagnostic Imaging (Routine) - Closed Specialty Diagnoses / Procedures Referred By Jonas reeves Referred To Contact Radiology Diagnoses Lumbar radiculopathy Procedures IR Transforaminal Epidural Injection Lumbar Sacral 1 Level Right Mia Wilson NP [address] [address] Phone: tel: fax: [address] [address] Referral ID Status Reason Start Date Expiration Date Visits Re quested Visits Authorized [id number] Closed 03/29/2021 06/27/2021 1 1 Y PORTER Encounter Details Date Type Department Care Team (Late st Contact Info) Description 03/19/2021 Orders Only [facility] Orthopaedic Surgery [address] [place] [address] 1st [address] [place] [address] Loser, Sheba, RMA Lumbar radiculopathy (Primary Dx) Social History Tobacco Use Types [...] documented as of this encounter Results * IR Transforaminal Epidural Injection Lumbar Sacral 1 Level Right (04/08/2021 2:56 PM LOBBY PORTER) Narrative [facility] - 04/08/2021 2:57 PM LOBBY PORTER The images from this study are not interpreted by Radiology. ??Please refer to the physician's procedure / OR operative note. Mia Wilson NP IMG IR PROCEDURES Final Resul t [facility] documented in this encounter Visit Diagnoses Diagnosis Lumbar radiculopathy- Primary Thoracic or lumbosacral neuritis or radiculitis, unspecified Lumbar radiculopathy- Primary Thoracic or lumbosacral neuritis or radiculitis, unspecified documented in this encounter Care Teams Cigar Packer Relationship Specialty Start Date End Date Melanie, Jessica Pinto NP [address] [place] [address] PCP - General 08/23/20 documented as of this encounter
--- OUTSIDE RECORDS SUMMARY | 2024-04-14 18:33 | XMS_ITS | Encounter Summary ---
Author Organization [facility] Healthcare Address [address] [place] [address] Care Team Providers Care Propellant Charge Loader Name Role Phone Jessica Navarro NP Primary Care Provider Reason for Visit * Reason Comments PT Discharge Encounter Details Date Type Department Care Team (Late st Contact Info) Description 02/21/2021 7:45 AM CDT Therapy [facility] Physical Therapy [address] [place] [phone] Seema Oakley, PT Left foot pain (Primary Dx) Social History Tobacco Use Types [...] as of this encounter Progress Notes * Seema Oakley, PT - 02/21/2021 7:45 AM CDT PT Daily Treatment Note Lilli Santos 1995 Subjective: Pt states the doctor thinks her feet problems are due to her back problems. She is going to make today her last visit for her feet/ankles. Pt states she goes to the gym everyday but has to be careful due to her back and ankle/foot pain. Pain: 5/10 B feet Objective: Objective measurements unchanged from evaluation. Treatment Provided: EOM: -Seated rocker board x 15 - Long sitting B ankle ROM - w/tband green x 15 ea - towel crunches x 20 B ?? Blue foam: - Rhomberg x 30 sec eyes open, 30 sec eyes closed - Tandem R/L and L/R 45 sec ea Standing B calf raises X 15 Step downs - fwd X 10 each LE with UE support Calf stretch at dome step, 30 sec X 2 ?? Nustep L6 x 5 min ?? Initial HEP:??Ankle alphabet, seated gastroc stretch with towel, Standing gastroc stretch, Standingsoleus stretch?? Assessment: Pt has decided to focus on her back issues for PT at this time. Therefore, she is to continue with her HEP for her feet/ankles. Goals: Below goals not met due to pt stopping PT for foot/ankle pain to have PT for low back pain. STG 1:: Pt to demonstrate her understanding and compliance with the initial HEP by 3 weeks. STG 2:: Pt to increase (B) DF AROM to 4-5?? to have improved DF at heel strike during ambulation with report of no more than 4-5/10 pain by 3 weeks. LTG 1:: Pt to be indep with final HEP by DC. LTG 2:: Pt to increase (B) DF to 6-8?? and increase L DF/PF MMT to 5/5 to have good DF at heel strike and good push off to have decreased gait deviations when ambulating 500ft by DC. LTG 3:: Pt to increase L ankle inv/evr to 5/5 and increase (B) evr to 10?? to be able to ambulate on uneven surfaces with no more than 2-3/10 pain by DC. LTG 4:: Pt to improve LEFS score to no more than 45% disability by DC. Plan: D/C PT for foot pain and pt to be evaluated for her low back next week. Pt in agreement with plan. Start Time: 749 End Time: 819 Seema Oakley PT documented in this encounter Plan of Treatment Not on file documented as of this encounter Visit Diagnoses Diagnosis Left foot pain- Primary Pain in soft tissues of limb documented in this encounter Care Teams Propellant Charge Loader Relationship Specialty Start Date End Date Jessica Navarro NP [address] [place] [address] PCP - General 08/23/20 documented as of this encounter
--- OUTSIDE RECORDS SUMMARY | 2024-04-14 18:33 | XMS_ITS | Encounter Summary ---
Author Organization [facility] Healthcare Address [address] [place] [address] Care Team Providers Care Water Purifier Operator Name Role Phone MelanieJohnJessicalambert Pinto NP Primary Care Provider Reason for Visit * Reason Comments PT Treatment Encounter Details Date Type Department Care Team (Late st Contact Info) Description 09/27/2020 10:00 AM CDT Therapy [facility] Physical Therapy [address] [place] [address] Jaye Zayas, PT Radiculopathy, thoracic region (Primary [...] Progress Notes * Jaye Zayas, PT - 09/27/2020 10:00 AM CDT PT Daily Treatment Note Lilli Santos 1995 Subjective: Pt states her lower back pain is 6/10 today. She states she gets some relief with the traction. She states several hours later the pain will be relieved for about an hour and half. She states right now the entire right LE is tingling. Pt states the left medial foot and ankle continue marichuy painful. Pain: 6/10 right side of lower back and into the right LE. Objective: Pt ambulates in with decreased stance time on the left LE. Treatment Provided: * indicates not performed today ?? Sitting on Edge of treatment table: -sitting trunk flexion reaching to the floor x 5 -sitting rolling large silver ball fwd x 10 then diagonal to each side x 10 (pt reports more of a stretch to the left and more discomfort going to the right. ) ?? Quadruped rocking back toward heels x 10, limited ROM due to pt reports of pain. Quadruped angry cat ex x10* ?? Pelvic traction int 30/10 x 15 min 80#/40# Prone IFC to lower back with MHP x 10 min. ?? (no ext ex this date)(nothing below performed) [...] HEP* Supine manual piriformis stretch x 4 ?? Standing against the wall pelvic shift with right hand on wall and left hand self assisting moving hips to the right. 30 sec hold x 30 sec. * ?? Treatment Ideas Modalities for mm relaxation Prone passive shift of pelvis to the right Go into prone on elbows and prone press ups as tolerated Progress with extension ex May try mechanical pelvic traction ktape as indicated Assessment: Goals are ongoing Pt tolerated treatment well Plan: Continue to see pt per POC Start Time: 1000 End Time: 1050 Jaye Zayas, PT, DPT documented in this encounter Plan of Treatment Not on file documented as of this encounter Visit Diagnoses Diagnosis Radiculopathy, thoracic region- Primary Thoracic or lumbosacral neuritis or radiculitis, unspecified documented in this encounter Care Teams Water Purifier Operator Relationship Specialty Start Date End Date Navarro, Jessica Pinto NP [address] [place] [address] PCP - General 08/23/20 documented as of this encounter
--- OUTSIDE RECORDS SUMMARY | 2024-04-14 18:33 | XMS_ITS | Encounter Summary ---
Author Organization [facility] Address [address] [address] Care Team Providers Care Retail Specialist Name Role Phone Jessica Navarro NP Primary Care Provider Reason for Visit * Reason Comments Follow-up Encounter Details Date Type Department Care Team (Late st Contact Info) Description 11/12/2020 10:50 AM CDT Office Visit [facility] [address] [place] [address] Kishan Broussard MD [address] [address] Nontraumatic rupture of tendons of left foot [...] - Inhaled Oxygen Concentration - - Weight 87.5 kg (193 lb) 11/12/2020 10:56 AM CDT Height 157.5 cm (5' 2 ) 11/12/2020 10:56 AM CDT Body Mass Index 35.3 11/12/2020 10:56 AM CDT documented in this encounter Progress Notes * Kishan Broussard MD - 11/12/2020 10:50 AM CDT Patient returns today having had positive response to the Medrol Dosepak. She is fully functional at this point and limbs only occasionally. She states that she occasionally developed some swelling Examination confirms a normal gait no evidence of any structural abnormality. Diagnosis-status post left ankle tendon repair. Plan-discharge from care. Activities as tolerated. Return to this office p.r.n. documented in this encounter Plan of Treatment Not on file documented as of this encounter Visit Diagnoses Diagnosis Nontraumatic rupture of tendons of left foot and ankle- Primary documented in this encounter Care Teams Retail Specialist Relationship Specialty Start Date End Date Jessica Navarro NP [address] [place] [address] PCP - General 08/23/20 documented as of this encounter
--- OUTSIDE RECORDS SUMMARY | 2024-04-14 18:33 | XMS_ITS | Encounter Summary ---
Author Organization [facility] Healthcare Address [address] [place] [address] Care Team Providers Care Shotblast Equipment Operator Name Role Phone MelanieJohnJessicalambert Pinto NP Primary Care Provider Reason for Visit * Reason Comments PT Treatment Encounter Details Date Type Department Care Team (Late st Contact Info) Description 09/19/2020 10:00 AM CDT Therapy [facility] Physical Therapy [address] [place] [address] Christi Chanel, TELEMETRY TECH Radiculopathy, thoracic region (Primary Dx) Social History [...] as of this encounter Progress Notes * Christi Chanel TELEMETRY TECH - 09/19/2020 10:00 AM CDT PT Daily Treatment Note Lilli Santos 1995 Subjective: Pain: 4.5/10 R low back Objective: Treatment Provided: * indicates not performed today ?? Sitting on Edge of treatment table: -sitting trunk flexion reaching to the floor x 5 -sitting rolling large silver ball fwd x 10 then diagonal to each side x 10 (pt reports more of a stretch to the left and more discomfort going to the right. ) ?? Quadruped rocking back toward heels x 10* Quadruped angry cat ex x10* ?? Pelvic traction int 30/10 x 10 min [...] pt per POC Start Time: 1000 End Time:1045 Christi Chanel PTA documented in this encounter Plan of Treatment Not on file documented as of this encounter Visit Diagnoses Diagnosis Radiculopathy, thoracic region- Primary Thoracic or lumbosacral neuritis or radiculitis, unspecified documented in this encounter Care Teams Shotblast Equipment Operator Relationship Specialty Start Date End Date Jessica Navarro NP [address] [place] [address] PCP - General 08/23/20 documented as of this encounter
--- OUTSIDE RECORDS SUMMARY | 2024-04-14 18:33 | XMS_ITS | Encounter Summary ---
Author Organization [facility] Healthcare Address [address] [place] [address] Care Team Providers Care Installation Superintendent Name Role Phone Jessica Navarro NP Primary Care Provider Reason for Referral * Diagnostic Imaging (Routine) - Closed Specialty Diagnoses / Procedures Referred By Contac t Referred To Contact Radiology Diagnoses Lumbar radiculopathy Procedures IR Transforaminal Epidural Injection Lumbar Sacral 1 Level Right Mia Wilson NP [address] [facility] [address] [address] Phone: tel: fax: [address] [phone] Referral ID Status Reason Start Date Expiration Date Visits Re quested Visits Authorized [id number] Closed 03/29/2021 06/27/2021 1 1 PARTS MOLDER Reason for Visit * Diagnostic Imaging (Routine) - Closed Specialty Diagnoses / Procedures Referred By Contac t Referred To Contact Radiology Diagnoses Lumbar radiculopathy Procedures IR Transforaminal Epidural Injection Lumbar Sacral 1 Level Right Mia Wilson NP [address] [facility] [address] [address] Phone: tel: fax: [address] [phone] Referral ID Status Reason Start Date Expiration Date Visits Re quested Visits Authorized [id number] Closed 03/29/2021 06/27/2021 1 1 Encounter Details Date Type Department Care Team (Latest Contact Info) Description 04/08/2021 1:49 PM SHOE PARTS MOLDER - 04/08/2021 11:59 PM SHOE PARTS MOLDER Hospital Encounter [facility] [address] [place] [address] MohinderSalDO [address] [place] [address] Lumbar radiculopathy (Primary Dx) Discharge Disposition: Discharge to home [...] Sign Reading Time Taken Comments Blood Pressure 125/75 04/08/2021 3:03 PM SHOE PARTS MOLDER Pulse 70 04/08/2021 3:03 PM SHOE PARTS MOLDER Temperature - - Respiratory Rate 18 04/08/2021 3:03 PM SHOE PARTS MOLDER Oxygen Saturation 99% 04/08/2021 3:03 PM SHOE PARTS MOLDER Inhaled Oxygen Concentration - - Weight - - Height - - Body Mass Index - - documented in this encounter Medications at Time of Discharge albuterol HFA (PROVENTIL HFA,VENTOLIN HFA,PROAIR HFA) 90 mcg/actuation inhaler Inhale 2 puffs every 4 (four) hours as needed for wheezing 1 Inhaler 05/14/2020 10/31/202 4 ARIPiprazole (ABILIFY) 5 mg tablet Take 2 tablets (10 mg total) by mouth every morning 02/19/2021 3 benzonatate (TESSALON) 100 mg capsuleIndications: Cough Take 1 capsule (100 mg total) by mouth 3 (three) times a day as needed for cough 15 capsule 05/14/2020 3 escitalopram (LEXAPRO) 10 mg tablet Take 10 mg by mouth daily 2 gabapentin (NEURONTIN) 300 mg capsule Gabapentin 300 mg. Take 2 at HS 60 capsule 04/08/2021 2 hydrOXYzine (ATARAX) 25 mg tablet Take 25 mg by mouth 3 (three) times a day as needed 11/20/2020 3 metFORMIN (GLUCOPHAGE) 500 mg tablet Take 1 [...] nausea or vomiting. 15 tablet 08/23/2020 2 OneTouch Ultra Test strip CHECK BLOOD SUGAR [...] documented in this encounter Progress Notes * Sal Vines DO - 04/08/2021 2:40 PM CST Lumbar Transforaminal Epidural Steroid Injection [facility] Department of Orthopedic Surgery Division of Physical Medicine and Rehabilitation Patient name: Lilli Santos Date of : 1995 Date of service: 04/08/2021 * The 25 gauge 3.5 inch needle just made it to the target. If repeat TESI is needed, may consider using a 22 gauge 5 inch needle. Lilli Santos presents to the fluoroscopy suite for a fluoroscopically guided right L5-S1 transforaminal epidural steroid injection for conservative treatment of lumbar radiculopathy with lumbar discdisplacement. After informed consent was obtained, the patient lay in the prone position on the fluoroscopy table. The area was prepped and draped in sterile fashion. Using a 25 gauge 2 inch needle, 1-2 mL of 1% lidocaine was infused subcutaneously to anesthetize the region. Then, a 25 gauge 3.5 inch spinal needle was advanced to the right posterior superior transforaminal space and advanced intothe epidural space under fluoroscopic guidance. Confirmation into the epidural space was obtained with infusion of 1 mL of Omnipaque contrast, which showed epidural flow as well as nerve sheath flow.Then, a combination of 1 mL of 1% lidocaine and 10 mg of 10 mg/mL dexamethasone was infused. The patient tolerated the procedure without complications. Pre and post procedure blood pressure were stable. The patient was given verbal as well as written follow-up instructions. A pain diary was given to the patient with follow-up instructions. Prior to the start of the procedure, verbal verification by the procedure participant(s) confirmed (as applicable): correct patient identity; correct site/side marked and visible; agreement on the procedure to be done; correct patient positioning; an accurate procedure consent form, relevant imagesand results correctly labeled and displayed; any safety precautions based on clinical history and/or medication use have been addressed. Fluoroscopic guidance used to assist right L5-S1 transforaminal epidural steroid injection. Confirmation of needle placement into the epidural space was obtained by injecting approximately 1 mL of Omnipaque contrast. There was no evidence of vascular uptake or subdural flow noted. I personally performed or was present for the procedure above. Robi Vines DO PARTS MOLDER documented in this encounter Plan of Treatment Not on file documented as of this encounter Procedures Procedure Name Priority Date/Time Associated Diagnosis Comments TRANSFORAMINAL EPIDURAL INJECTION LUMBAR SACRAL 1 LEVEL RIGHT Schedule Routine, Read Routine (OP Routine) 04/08/2021 2:56 PM SHOE PARTS MOLDER Lumbar radiculopathy documented in this encounter Results * IR Transforaminal Epidural Injection Lumbar Sacral 1 Level Right (04/08/2021 2:56 PM SHOE PARTS MOLDER) Narrative [facility] - 04/08/2021 2:57 PM SHOE PARTS MOLDER The images from this study are not interpreted by Radiology. ??Please refer to the physician's procedure / OR operative note. us Mia Wilson NP IMG IR PROCEDURES Final Resul t [facility] documented in this encounter Visit Diagnoses Diagnosis Lumbar radiculopathy- Primary Thoracic or lumbosacral neuritis or radiculitis, unspecified documented in this encounter Administered Medications Inactive Administered Medications - up to 3 most recent administrations Medication Order MAR Action Action Date Dose Rate Site dexAMETHasone (DECADRON) preservative free solution Administer over 2 Minutes, Code/trauma/sedation medication, Starting on Thu04/08/21 at 1444 Given 04/08/2021 2:44 PM SHOE PARTS MOLDER 10 mg iohexoL (OMNIPAQUE) 300 mg iodine/mL injection solution Code/trauma/sedation medication, Starting on Thu04/08/21 at 1445 Given 04/08/2021 2:45 PM SHOE PARTS MOLDER 0.5 mL lidocaine PF (XYLOCAINE) 10 mg/mL (1 %) preservative free injection Code/trauma/sedation medication, Starting on Thu04/08/21 at 1444, Intra-Procedure (IR), Indications: Administration of Local AnesthesiaIndications:Administrati on of Local Anesthesia Given 04/08/2021 2:44 PM SHOE PARTS MOLDER 1 mL documented in this encounter Care Teams Installation Superintendent Relationship Specialty Start Date End Date Jessica Navarro NP [address] [place] [address] PCP - General 08/23/20 documented as of this encounter
--- OUTSIDE RECORDS SUMMARY | 2024-04-14 18:33 | XMS_ITS | Encounter Summary ---
Author Organization [facility] Address [address] [facility] [address] [place] [address] Phone Care Team Providers Care Senior Game Developer Name Role Phone Navarro, Jessica Pinto NP Primary Care Provider + [phone] Reason for Referral * Consultation (Routine) - Closed Specialty Diagnoses / Procedures Referred By Jonas reeves Referred To Contact Physical Therapy Diagnoses Left foot pain [place] [address] [place] [address] Phone: tel: fax: External Order Referral ID Status Reason Start Date Expiration Date V isits Requested Visits Authorized [id number] Closed Specialty Services Required 01/10/2021 02/09/2022 24 24 Question Answer PTRFR PT Evaluate and Treat Therapy options discussed with patient? Yes Location provided for therapy services is: Patient requested/Patient preferred Please select the performing region: External Order [171] # of visits: 24 Comments Lilli Santos 01/10/21 Clinical Information: Left FHL / FDL weakness/ ankle pain Physical Therapy Treatment: Eval & treat, Post injury/post surgery ankle and foot mobilization program (AROM, AAROM, general strengthening and flexibility exercises for the lower leg, foot, and ankle proprioception), General flexibility and strengthening program for the lower extremities, including hamstring/gastroc stretching, and lower extremity muscle strengthening exercises, Modalities as indicated and Other: Toe flex/extend/strength Weight Bearing Status: weight-bearing as tolerated Number of Visits: Initial visit for instructions in home program and monitor 1-2 times per week for 6-8 weeks MD Yonny Crum MD Your physical therapy provider may complete the pre-certification process on your behalf. If you need assistance from the orthopedic pre-certification office, please call [phone] and a steam setter will assist you. * Diagnostic Imaging (Routine) - Closed Specialty Diagnoses / Procedures Referred By Contac t Referred To Contact Diagnoses Left foot pain Tendinitis of ankle Procedures XR Ankle Left 3 [place] [address] [place] [address] Phone: tel: fax: [facility] Referral ID Status Reason Start Date Expiration Date Visits Re quested Visits Authorized [id number] Closed 12/28/2020 01/27/2022 1 1 Reason for Visit * Reason Comments Pain Encounter Details Date Type Department Care Team (Late st Contact Info) Description 01/10/2021 7:40 AM CDT Office Visit [facility] Orthopaedic Surgery [address] [place] [address] [place] [address] [place] [address] Left foot pain (Primary Dx); Tendinitis of ankle Social History Tobacco Use Types Packs/Day Years [...] Concentration - - Weight 86.2 kg (190 lb) 01/10/2021 8:27 AM CDT Height 160 cm (5' 3 ) 01/10/2021 8:27 AM CDT Body Mass Index 33.66 01/10/2021 8:27 AM CDT documented in this encounter Progress Notes * Yonny Eric MD - 01/10/2021 7:40 AM CDT NEW PATIENT VISIT CHIEF COMPLAINT Pain of the Left Ankle HISTORY OF PRESENT ILLNESS 25-year-old female who presents today for evaluation of chronic left medial ankle and medial forefoot pain. She reports a history of a triggering great toe for which she saw an outside hospital provider for. 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 In looking at the operative note, there was no report of a full tarsal tunnel decompression.Postoperatively, she participated in almost 2 months of physical therapy that focus on strength, range of motion, there was some scar massage but it is unclear whether not there was a formal desensitization protocol. She continued to report numbness and paresthesias in the distribution of the medial plantar nerve, this has remained constant since the surgery, no acute worsening or improvement. She describes her pain as dull and aching in nature that transformed into burning towards the end of the day when she has been on her feet for long periods of time. She reports associated swelling. Sheis not currently working, previously worked at [employer] and at [employer] she does think that this pain is contributing to her inability to find a job at this time. She is a mother of 3 and is on her feet constantly taking care of her children. She has not tried any p.o. nerve medications, shewas previously prescribed some Medrol Dosepak that helped her intermittently. PAST MEDICAL HISTORY She has a past medical history of Anxiety, Asthma, Depression, GERD (gastroesophageal reflux disease), and Thyroid disease. PAST SURGICAL HISTORY She has a past surgical history that includes Breast surgery; Thyroid surgery; and Ankle surgery. INITIAL REVIEW OF MEDICATIONS She has a current medication list which includes the following prescription(s): albuterol hfa, benzonatate, hydroxyzine, metformin, nitrofurantoin monohydrate, ondansetron odt, and tizanidine. DRUG ALLERGIES She is allergic to chiu. SOCIAL HISTORY She reports that she has quit smoking. Her smoking use included cigarettes. She smoked 1.00 pack per day. She has never used smokeless tobacco. She reports that she does not drink alcohol and does not use drugs. FAMILY HISTORY Her family history includes Arthritis in an other family member; Cancer in an other family member; Diabetes in an other family member; Heart disease in an other family member; Hypertension in an other family member. REVIEW OF SYSTEMS Please see patient questionnaire from 01/10/21 PHYSICAL EXAMINATION There were no vitals taken for this visit. The patient is alert and oriented x3 and in no apparent distress. Hearing is intact to the spoken word. There are no audible wheezes with breathing. Exam of the left lower extremity shows a palpable DP pulse. Sensation is intact to light touch through DP, SP, sural, saphenous distributions. She hasintact sensation in the lateral plantar nerve but does note some numbness and paresthesias along the medial plantar aspect. She has a positive Tinel's just distal to the medial malleolus that radiates into the medial plantar aspect of her foot. Skin has a well-healed medial incision without any evidence of infection, no surrounding erythema, no open wounds, no active drainage. Swelling is isolated along the medial aspect of the ankle. Tenderness is primarily along the medial ankle, most severe at the inferior aspect of the medial malleolus extending distally along the path of both the posterior tibial tendon as well as the FHL tendon.. She has 5/5 strength of her EHL, tibialis anterior, gastrocsoleus complex, and peroneals. She has an intention tremor of her after HL, she has 4/5 strengthto her posterior tibial tendon. Hindfoot alignment in stance is neutral. Ankle range of motion is neutral dorsiflexion with the knee extended that improves to 10?? with the knee flexed, she has 30?? of plantar flexion. Subtalar range of motion is 10?? of inversion and 10?? of eversion. She is able to perform a double heel rise and a single heel rise with the hindfoot correcting into varus. She does note some medial ankle pain with this maneuver.. REVIEW OF X-RAYS/STUDIES Radiographs ordered obtained and interpreted independently by me today show no acute fracture, there is an os trigonum. She also has osteophytes of off of the talar neck as well as the anterior tibial plafond. Meary's line is intact IMPRESSION/DIAGNOSIS 25-year-old female with chronic pain status post right FHL debridement and repair by an outside hospital provider, the more likely etiologies of her pain is irritation of the medial plantar nerve. Given that she has an intention tremor of the FHL we feel that her tendon is intact but is present suffering from both weakness and possible limitations with scarring. TREATMENT/PLAN At this point we recommended a another formal course of physical therapy. She we feel that she may benefit at this time given that she has no associated postoperative surgical pain. We will focus on strengthening of her ankle stabilizers as well as her intrinsic foot musculature. We discussed that we do not feel that there is any further surgical intervention from a tendon standpoint that would benefit her. We will plan to refer her to one of of our colleagues for a discussion of nerve decompression within the tarsal tunnel. She can follow up with us on an as-needed basis. All of the patient's questions were answered, and the patient was agreeable with the plan. FOLLOW UP As needed Signed, Meena Drake M.D. Orthopaedic Surgery, PGY-4 ATTENDING ATTESTATION: I agree with the note as dictated by the resident/fellow above. I have examined the patient with the resident physician and I concur with the findings. I agree with the plan as outlined above. In short, patient did have symptoms more related to nerve than the musculoskeletal. We will suggestphysical therapy for strengthening. I am not sure for the surgery on tendinous structures is helpful. I would have her evaluated for possible nerve pain at the tarsal tunnel. We will refer her to Dr. Naqvi The patient was understanding and agreeable with the plan as outlined above. All questions were answered. Follow-up as needed Yonny Eric MD Police Captain Foot and Ankle Surgery [facility] Orthopedics Yonny Eric MD dictating using [employer] Software. Mold Stamper And Repairer variances may occur. documented in this encounter Plan of Treatment Scheduled Referrals Name Type Priority Associated Diagnoses Order Schedule Ambulatory referral order to Physical Therapy - Outpatient Referral Routine Left foot pain Tendinitis of ankle Expected: 01/24/2021 (Approximate), Expires: 01/10/2022 documented as of this encounter Results * XR Ankle Left 3 or More Views (01/10/2021 7:43 AM CDT) Anatomical Region Laterality Modality Lower Extremities, Ankle Left Compute d Radiography 01/10/2021 8:04 AM CDT Impressions 01/10/2021 8:04 AM CDT 1. Mild left ankle osteoarthritis with anterior spurring at the tibiotalar joint line. Electronically signed by: Terrance Hammer M.D. Narrative 01/10/2021 8:04 AM CDT EXAMINATION: XR ANKLE LEFT 3 OR MORE VIEWS HISTORY: Left ankle pain, tendinitis FINDINGS: 3 view weightbearing examination of the left ankle is compared with a study from 12/28/2019. There is mild ankle osteoarthritis with anterior spurring at the tibiotalar joint. There is a small Achilles insertional enthesophyte. Ankle mortise is intact. No fracture is present. Procedure Note Terrance Hammer MD - 01/10/2021 EXAMINATION: XR ANKLE LEFT 3 OR MORE VIEWS HISTORY: Left ankle pain, tendinitis FINDINGS: 3 view weightbearing examination of the left ankle is compared with a study from 12/28/2019. There is mild ankle osteoarthritis with anterior spurring at the tibiotalar joint. There is a small Achilles insertional enthesophyte. Ankle mortise is intact. No fracture is present. IMPRESSION: 1. Mild left ankle osteoarthritis with anterior spurring at the tibiotalar joint line. Electronically signed by: Terrance Hammer M.D. Yonny Eric MD IMG XR PROCEDURES Jesusita l Result documented in this encounter Visit Diagnoses Diagnosis Left foot pain- Primary Pain in soft tissues of limb Tendinitis of ankle Left foot pain Pain in soft tissues of limb Tendinitis of ankle documented in this encounter Care Teams Senior Game Developer Relationship Specialty Start Date End Date Navarro, Jessica Pinto NP [address] [place], [place] [id number] PCP - General 08/23/20 documented as of this encounter
--- OUTSIDE RECORDS SUMMARY | 2024-04-14 18:33 | XMS_ITS | Encounter Summary ---
Author Organization [facility] Address [address] [facility] [address] [place] [address] Phone Care Team Providers Care Shield Cleaner Name Role Phone Jessica Navarro NP Primary Care Provider Encounter Details Date Type Department Care Team (Latest Contact Info) Description 04/03/2021 1:30 PM UNDER TRIMMER Office Visit [facility] Orthopaedic Surgery [address] [place] [address] Mia Wilson NP [address] [place] [address] Lumbar radiculopathy (Primary Dx) Social History Tobacco [...] as of this encounter Progress Notes * Katie, Mia A., CYLINDRICAL MIXER - 04/03/2021 1:30 PM CST RETURN PATIENT VISIT INTERVAL HISTORY Lilli Santos is a 26 y.o. who presents today for follow-up lumbar radiculopathy. She had a right S1 transforaminal epidural steroid injection March 01, 2021. For 24 hours she had 100% pain relief.Then gradually declined to 50% alleviation of pain. She reports her pain today is 6/10 with burning stabbing discomfort in the right leg in L5 distribution. No lower extremity focal weakness. She is taking gabapentin at bedtime. PHYSICAL EXAMINATION CONSTITUTIONAL: Well-appearing, in no apparent distress EYES: No scleral icterus or conjunctival hemorrhage CARDIOVASCULAR: Skin warm and well-perfused, no peripheral edema RESPIRATORY: Breathing unlabored without accessory muscle use PSYCHIATRIC: Alert, cooperative, appropriate mood and affect SKIN: No lesions or rashes on exposed skin MUSCULOSKELETAL: Bilateral hip flexion, knee flexion/extension, ankle dorsiflexion and EHL strengthis 5/5. Able to heel and toe walk without weakness. NEUROLOGIC: Positive sit slump with peroneal bias. REVIEW OF IMAGING/STUDIES Reviewed reviewed the lumbar MRI from February 11, 2021. Degenerative changes L2- 3 and L5-S1. Moderate disc bulge with protrusion to the right L5-S1 compressing right L5 nerve root. IMPRESSION/DIAGNOSIS Lumbar radiculopathy, primarily L5 distribution TREATMENT/PLAN We discussed response to prior injection which targeted the S1 nerve root. She has pain in the L5 nerve root distribution. Recommend moving forward with a right L5-S1 TESI. She will continue with home exercise program and gabapentin. She will call 2 weeks after injection with pain diary. All questions were addressed. Mia Wilson RN, ANP-BC Nurse Practitioner [facility] Orthopedics Division of Physical Medicine and Rehabilitation In collaboration with Dr. Ferguson This document was created using speech voice recognition software. Grammatical errors, random word insertions, pronoun errors and incomplete sentences are an occasional consequence of this system due to software limitations, ambient noise and hardware issues. Any formal questions or concerns about content, text or information contained within the body of this dictation should be directly addressed to the provider for clarification. R TRIMMER documented in this encounter Plan of Treatment Not on file documented as of this encounter Visit Diagnoses Diagnosis Lumbar radiculopathy- Primary Thoracic or lumbosacral neuritis or radiculitis, unspecified documented in this encounter Historical Medications * This list may reflect changes made after this encounter. ARIPiprazole (ABILIFY) 5 mg tablet Take 2 tablets (10 mg total) by mouth every morning 02/19/2021 04/14/2023 added in this encounter Care Teams Shield Cleaner Relationship Specialty Start Date End Date Jessica Navarro NP [address] [place] [address] PCP - General 08/23/20 documented as of this encounter
--- OUTSIDE RECORDS SUMMARY | 2024-04-14 18:33 | XMS_ITS | Encounter Summary ---
Author Organization [facility] Address [address] [facility] [address] [place] [address] Phone Care Team Providers Care Analog Ic Design Architect Name Role Phone Jessica Navarro NP Primary Care Provider [phone] Encounter Details Date Type Department Care Team (Late st Contact Info) Description 04/04/[address] [facility] Orthopaedic Surgery [address] [place] [address] Mia Wilson NP [address] [place] [address] Social History Tobacco Use Types Packs/Day Years [...] encounter Miscellaneous Notes * Telephone Encounter - Sheba Osorio RMA - 04/04/2021 9:11 AM CST I spoke to Lilli, injection is approved and rescheduled. She is aware of the pre injection instructions (sent via [employer]) R SLICER * Telephone Encounter - Jasbir Ayala - 04/04/2021 8:54 AM CST Pre Arrival reported that pt's INJ has been approved by insurance so pt may reschedule for anytime. R SLICER documented in this encounter Plan of Treatment Not on file documented as of this encounter Visit Diagnoses Not on filedocumented in this encounter Care Teams Analog Ic Design Architect Relationship Specialty Start Date End Date Melanie, Jessica Pinto NP [address] [place] [address] PCP - General 08/23/20 documented as of this encounter
--- OUTSIDE RECORDS SUMMARY | 2024-04-14 18:33 | XMS_ITS | Encounter Summary ---
Author Organization [employer] [facility] Address [address] [facility] [address] [place] [address] Phone Care Team Providers Care Bond Runner Name Role Phone Melanie, Jessica Pinto NP Primary Care Provider [phone] Reason for Referral * MRI/CAT/PET Scan (Routine) - Closed Specialty Diagnoses / Procedures Referred By Contac t Referred To Contact Radiology Diagnoses Lumbar radiculopathy Procedures MRI Lumbar Spine WO Contrast Renard Naqvi MD Phone: tel: fax: [address] [address] Referral ID Status Reason Start Date Expiration Date Visits Re quested Visits Authorized [id number] Closed 02/05/2021 05/06/2021 1 1 Reason for Visit * Reason Comments Pain Pain Encounter Details Date Type Department Care Team (Late st Contact Info) Description 02/04/2021 9:40 AM CDT Office Visit [facility] Orthopaedic Surgery [address] [facility] [address] 1[address] [place] [address] Renard Naqvi MD [address] [address] [address] [address] [place] [address] Lumbar radiculopathy (Primary Dx); Pain in both feet Social History Tobacco Use Types Packs/Day Years [...] as of this encounter Progress Notes * Dy, Renard Martell MD - 02/04/2021 9:40 AM CDT NEW PATIENT VISIT CHIEF COMPLAINT: Bilateral foot pain HISTORY OF PRESENT ILLNESS This is a 25 y.o. female presenting for evaluation of bilateral foot pain. Left greater than right.I was asked by Dr. Eric to see this patient for my thoughts regarding potential tarsal tunnel syndrome.. She has had medial ankle pain that radiates to her heels. She was told this was related to a trigger toe, and had surgery done on her left side. There was some kind of FHL debridement that was performed, but no indication of any sort of formal tarsal tunnel release. Her pain that she had surgery for was not any better after the surgery. She continues to have pain when she is on her feetfor long periods of time, finds it hard to walk up and down stairs. She cannot run because of the pain. It is consistently at a level 2-3 but occasionally becomes much more severe, level 7-8. She hasa history of sciatica from when she was much younger. She also is a diabetic, with a most recent A1c of 9.0 on January 15. She has not had a recent workup of her lumbar spine. She describes her pain as sharp dull aching moderate to severe. PAST MEDICAL HISTORY Past Medical History: Diagnosis Date ??? Anxiety ??? Asthma ??? Depression ??? GERD (gastroesophageal reflux disease) ??? Thyroid disease PAST SURGICAL HISTORY Past Surgical History: Procedure Laterality Date ??? ANKLE SURGERY ??? BREAST SURGERY breast reduction ??? THYROID SURGERY SOCIAL HISTORY Social History Socioeconomic History ??? Marital status: Single Spouse name: Not on file ??? Number of children: Not on file ??? Years of education: Not on file ??? Highest education level: Not on file Occupational History ??? Not on file Tobacco Use ??? Smoking status: Former Smoker Packs/day: 1.00 Types: Cigarettes ??? Smokeless tobacco: Never Used Substance and Sexual Activity ??? Alcohol use: Never ??? Drug use: Never ??? Sexual activity: Not on file Other Topics Concern ??? Not on file Social History Narrative ??? Not on file Social Determinants of Health Financial Resource Strain: ??? Difficulty of Paying Living Expenses: Not on file Food Insecurity: ??? Worried About Running Out of Food in the Last Year: Not on file ??? Ran Out of Food in the Last Year: Not on file Transportation Needs: ??? Lack of Transportation (Medical): Not on file ??? Lack of Transportation (Non-Medical): Not on file Physical Activity: ??? Days of Exercise per Week: Not on file ??? Minutes of Exercise per Session: Not on file Stress: ??? Feeling of Stress : Not on file Social Connections: ??? Frequency of Communication with Friends and Family: Not on file ??? Frequency of Social Gatherings with Friends and Family: Not on file ??? Attends Taoist Services: Not on file ??? Active Member of Clubs or Organizations: Not on file ??? Attends Club or Organization Meetings: Not on file ??? Marital Status: Not on file Intimate Partner Violence: ??? Fear of Current or Ex-Partner: Not on file ??? Emotionally Abused: Not on file ??? Physically Abused: Not on file ??? Sexually Abused: Not on file Social History Occupational History ??? Not on file Tobacco Use ??? Smoking status: Former Smoker Packs/day: 1.00 Types: Cigarettes ??? Smokeless tobacco: Never Used Substance and Sexual Activity ??? Alcohol use: Never ??? Drug use: Never ??? Sexual activity: Not on file FAMILY HISTORY Family History Problem Relation Age of Onset ??? Heart disease Other ??? Hypertension Other ??? Cancer Other ??? Arthritis Other ??? Diabetes Other REVIEW OF SYSTEMS Review of Systems MEDICATIONS Current Outpatient Medications: ??? albuterol HFA (PROVENTIL HFA,VENTOLIN HFA,PROAIR HFA) 90 mcg/actuation inhaler, Inhale 2 puffs every 4 (four) hours as needed for wheezing, Disp: 1 Inhaler, Rfl: 0 ??? benzonatate (TESSALON) 100 mg capsule, Take 1 capsule (100 mg total) by mouth 3 (three) times aday as needed for cough, Disp: 15 capsule, Rfl: 0 ??? hydrOXYzine (ATARAX) 25 mg tablet, Take 25 mg by mouth 3 (three) times a day as needed, Disp: ,Rfl: ??? metFORMIN (GLUCOPHAGE) 500 mg tablet, Take 1 tablet (500 mg total) by mouth 2 (two) times a daywith meals, Disp: 60 tablet, Rfl: 0 ??? nitrofurantoin monohydrate (MACROBID) 100 mg capsule, Take 1 capsule (100 mg total) by mouth 2 (two) times a day, Disp: 10 capsule, Rfl: 0 ??? ondansetron ODT (ZOFRAN-ODT) 4 mg disintegrating tablet, Dissolve 1 tablet oral every 4 hours as needed for nausea or vomiting., Disp: 15 tablet, Rfl: 0 ??? OneTouch Ultra Test strip, CHECK BLOOD SUGAR 1-2 TIMES DAILY, Disp: , Rfl: ??? tiZANidine (ZANAFLEX) 4 mg tablet, Take 4 mg by mouth every 6 (six) hours as needed, Disp: , Rfl: ??? valACYclovir (VALTREX) 500 mg tablet, TAKE 1 TABLET BY MOUTH TWICE DAILY FOR 3 DAYS, Disp: , Rfl: ??? venlafaxine XR (EFFEXOR-XR) 150 mg 24 hr capsule, Take 150 mg by mouth daily, Disp: , Rfl: DRUG ALLERGIES Allergies Allergen Reactions ??? Mena Shortness of breath PHYSICAL EXAMINATION GENERAL: This is a well-developed, well-nourished, age-appropriate patient in no acute distress. The patient is alert and oriented x3. Pleasant and cooperative. PSYCHIATRIC: Mood is euthymic. Affect appears appropriate. EYES: Anicteric sclera. Extraocular movements appear intact. EAR, NOSE, THROAT: Hearing is intact to the spoken word. Nares are patent with no drainage. RESPIRATORY: There is equal chest rise on inspection. Breathing is non-labored with no audible wheezing. CARDIOVASCULAR: Radial pulses are 2+ and symmetrical. There is no upper extremity lymphedema. SKIN: No obvious skin lesions or rashes are noted. Skin is warm to touch. NEUROLOGIC: No ataxia. LOWER EXTREMITIES: Bilaterally, she has pes planus. She does not have any tenderness over her plantar fascia on eitherside. On the left, her incision is well healed but does not extend to the glabrous junction. She has a positive Durkan and Tinel sign over her flexor retinaculum as well as a positive Durkan test over her abductor fascia/distal tarsal tunnel. Negative Durkan test at her soleus sling. On her right, she has a positive Tinel sign over the tarsal tunnel and the abductor fascia. REVIEW OF X-RAYS/STUDIES None today IMPRESSION/DIAGNOSIS/ PLAN I agree there there is some element of tarsal tunnel, and I am also concerned about her lumbar spine. We will obtain an MRI of her lumbar spine to further evaluate for compression at the nerve root level. We will have her work with a physical therapist who has some experience in treating compressive neuropathy in the lower extremity, and I also recommended that she start with orthotics given her flatfoot. I will call her with the results of the MRI, but we should plan on seeing her back for repeat clinical assessment in 6 weeks. Renard Naqvi M.D. Feeder Operator Automatic Hand and Upper Extremity [facility] Orthopedics Dr. Naqvi is dictating using speech recognition software. Rope Tow Operator variances may occur. documented in this encounter Plan of Treatment Not on file documented as of this encounter Results * MRI Lumbar Spine WO Contrast (02/11/2021 12:13 PM CDT) Anatomical Region Laterality Modality Spine N/A Magnetic Resonan ce 02/11/2021 2:09 PM CDT Impressions 02/11/2021 5:20 PM CDT 1. Mild multilevel degenerative disc disease more pronounced at L2-L3 and L5-S1 levels 2. L5-S1 disc protrusion mildly compressing right S1 nerve root in the canal Dictated by: Wallace Thomas M.D. The radiology attending physician has personally reviewed this study, and had reviewed and/or edited this written report and agrees with it. Electronically signed by: Alex Jose M.D. Narrative 02/11/2021 5:20 PM CDT EXAMINATION: Magnetic resonance imaging (MRI) of the lumber spine without contrast. HISTORY: Lumbar radiculopathy. TECHNIQUE: Multiplanar multi-weighted MRI of the lumbar spine was performed without ??intravenous contrast using the standard lumbar spine protocol. [...] There is no spinal canal stenosis. L2-L3: ??Right paracentral/foraminal broad-based disc protrusion causing right lateral recess stenosis at this level. There is no facet arthropathy. There is no neuroforaminal stenosis. There is mild spinal canal stenosis L3-L4: ??Mild disc bulge. There is mild bilateral facet arthropathy. There is no neuroforaminal stenosis. There is no spinal canal stenosis L4-L5: ??Small disc bulge. There is mild bilateral, facet arthropathy, right worse than left. There is no neuroforaminal stenosis. There is no spinal canal stenosis L5-S1: ??Moderate disc bulge superimposed with small posterior central/right paracentral protrusion mildly compressing right descending nerve root at this level. There is mild bilateral facet arthropathy. There is no neuroforaminal stenosis. There is no spinal canal stenosis Procedure Note Alex Jose MD - 02/11/2021 EXAMINATION: Magnetic resonance imaging (MRI) of the [...] right S1 nerve root in the canal Dictated by: Wallace Thomas M.D. The radiology attending physician has personally reviewed this study, and had reviewed and/or edited this written report and agrees with it. Electronically signed by: Alex Jose M.D. Renard Naqvi MD IM MRI PROCEDURES Final Result documented in this encounter Visit Diagnoses Diagnosis Lumbar radiculopathy- Primary Thoracic or lumbosacral neuritis or radiculitis, unspecified Pain in both feet Lumbar radiculopathy Thoracic or lumbosacral neuritis or radiculitis, unspecified documented in this encounter Discontinued Medications Medication Sig Discontinue Reason Start Date End Da te TiZANidine (ZANAFLEX) 2 mg capsuleIndications:Muscl e Spasm Take 2 mg by mouth 3 (three) times a day as needed for muscle spasms Dose adjustment 02/04/2021 hydrOXYzine (VISTARIL) 25 mg capsule Take 25 mg by mouth 3 (three) times a day as needed for itching Duplicate order 02/04/2021 documented as of this encounter Historical Medications * This list may reflect changes made after this encounter. OneTouch Ultra Test strip CHECK BLOOD SUGAR 1-2 TIMES DAILY 12/29/2020 05/12/2022 hydrOXYzine (ATARAX) 25 mg tablet Take 25 mg by mouth 3 (three) times a day as needed 11/20/2020 06/02/2022 valACYclovir (VALTREX) 500 mg tablet TAKE 1 TABLET BY MOUTH TWICE DAILY FOR 3 DAYS 11/01/2020 11/24/2022 venlafaxine XR (EFFEXOR-XR) 150 mg 24 hr capsule Take 150 mg by mouth daily 01/08/2021 02/20/2021 tiZANidine (ZANAFLEX) 4 mg tablet Take 1 tablet (4 mg total) by mouth every 6 (six) hours as needed 01/21/2021 05/04/2023 added in this encounter Care Teams Bond Runner Relationship Specialty Start Date End Date Jessica Navarro NP [address] [place] [address] PCP - General 08/23/20 documented as of this encounter
--- OUTSIDE RECORDS SUMMARY | 2024-04-14 18:33 | XMS_ITS | Encounter Summary ---
Author Organization [facility] Healthcare Address [address] [place] [address] Care Team Providers Care Burn Center Nurse Name Role Phone Jessica Navarro NP Primary Care Provider [phone] Reason for Visit * Reason Comments PT Initial Eval * Consultation (Routine) - Closed Specialty Diagnoses / Procedures Referred By Jonas t Referred To Contact Physical Therapy Diagnoses Left foot [place] [address] [place] [address] Phone: tel: fax: External Order Referral ID Status Reason Start Date Expiration Date V isits Requested Visits Authorized [id number] Closed Specialty Services Required 01/10/2021 02/09/2022 24 24 Encounter Details Date Type Department Care Team (Late st Contact Info) Description 02/12/2021 8:30 AM CDT Therapy [facility] Physical Therapy [address] [place] [phone] Beronica Contreras, PT Left foot pain (Primary Dx); Tendinitis of [...] as of this encounter Progress Notes * Beronica Contreras, PT - 02/12/2021 8:30 AM CDT Physical Therapy Initial Evaluation ANKLE Patient Name: Lilli Santos Referring Doctor: Yonny Eric* Patient : 1995 Onset Date: 12/28/20 (recent xray) Diagnosis: Left foot pain (M79.672) Tendinitis of ankle (M77.50) Next MD visit: PRN Progress Note due: 03/26/21 Precautions: none per script SUBJECTIVE: History of Present Condition: Pt reports she has pain in both ankles (L > R). States she just started having pain one day that continued to get worse. One year ago she found out she had a torn tendon in the L medial ankle and has surgery to repair it. Pt states the surgery didn't really help herpain. Pt also notes she has a lot of lower back issues and they think it could be affecting her feet/ankles. Hand dominance: right History of falls in the past 6 months: no Prior level of function: h/o (B) ankle pain for the past 3-4 years Current occupation: unemployed Imaging test: L ankle Xray - Mild left ankle osteoarthritis with anterior spurring at the tibiotalar joint line. Pain: Current - 3/10 (B) Worst - 6/10 (B) Best - 3/10 (B) Location/Description: Ache that can become sharp/shooting. Around the medial arch, inferior to medial malleolus, and radiates up the medial lower leg to about mid point Relieving factors: sitting/resting Aggravating factors/Functional limitations: standing/walking, jogging, walking up/down stairs, walking on uneven surfaces Patient/caregiver goal: decrease pain to improve mobility OBJECTIVE: Gait: decreased (B) trunk rot, slight circumduction of L lower leg to clear foot from the floor, decreased DF at heel strike (B) Foot Posture: Pt pronates (B) (L >R) in weight bearing. AROM MMT AROM MMT Comments Knee: R R L L Extension WNL?? 5/5 WNL?? 5/5 Flexion WNL?? 5/5 WNL?? 5/5 Ankle: Dorsi Flexion 90?? 5/5 -2-3?? from 0?? 4 to 4+/5 * *mod cog wheeling Plantar Flexion 65?? 5/5 60?? 4+/5 * *mod cog wheeling Inversion 49?? 55 35?? 4+ to 5-/5 * *min cog wheeling Eversion 2?? 5/5 5?? 5-/5 * *min cog wheeling Balance: NT this date Manual Exam: tender to palpation along posterior tibialis tendons, (B) Special Tests: Test for clonus (test due to pt had cog wheeling during L ankle MMT) - (B) negative Functional Outcome Survey: LEFS 62.5% disability Treatment Provided: Patient was evaluated, prescribed initial HEP, discussed POC with the patient. Discussed looking at over the counter arch supports (pt states she can't afforded the rigid orthotics that are costume made). Initial HEP instruction: Ankle alphabet, seated gastroc stretch with towel, Standing gastroc stretch, Standing soleus stretch Patients understanding of HEP: Pt acknowledged and demonstrated their understanding of the initial HEP. Treatment Ideas: Core/hip/knee/ankle/toe strengthening Balance activities Gait training Modalities (prn) - US, CP, MHP, IFC ASSESSMENT/PLAN: Assessment Impairments: abnormal or restricted ROM, weight-bearing intolerance, pain with function, impaired body mechanics, abnormal gait, activity tolerance, impaired physical strength, lacks appropriate homeexercise program, flexibility, impaired balance Prognosis: fair Prognosis details: due to pt has 3-4 year h/o ankle pain, h/o surgery Goals STG 1:: Pt to demonstrate her understanding and compliance with the initial HEP by 3 weeks. Goal status: New STG 2:: Pt to increase (B) DF AROM to 4-5?? to have improved DF at heel strike during ambulation with report of no more than 4-5/10 pain by 3 weeks. Goal status: New LTG 1:: Pt to be indep with final HEP by DC. Goal status: New LTG 2:: Pt to increase (B) DF to 6-8?? and increase L DF/PF MMT to /5 to have good DF at heel strike and good push off to have decreased gait deviations when ambulating 500ft by DC. Goal status: New LTG 3:: Pt to increase L ankle inv/evr to 5/5 and increase (B) evr to 10?? to be able to ambulate on uneven surfaces with no more than 2-3/10 pain by DC. Goal status: New LTG 4:: Pt to improve LEFS score to no more than 45% disability by DC. Goal status: New Plan Start time: 829 End time: 924 Therapy options: will be seen for skilled therapy services Planned modality interventions: interferential current, thermotherapy (hydrocollator packs), ultrasound, cryotherapy Planned therapy interventions: abdominal trunk stabilization, therapeutic activities, joint mobilization, flexibility, balance/weight-bearing training, functional ROM exercises, Kinesiotaping, strengthening, manual therapy, gait training, body mechanics training, home exercise program, stretching Frequency: 2 x/week Duration in visits: (24 visits) Discussed with: patient Beronica Contreras PT, MPT documented in this encounter Plan of Treatment Not on file documented as of this encounter Visit Diagnoses Diagnosis Left foot pain- Primary Pain in soft tissues of limb Tendinitis of ankle documented in this encounter Orders Outpatient Referral Count Last Ordered Date st Ordered Date AMB REFERRAL ORDER TO PHYSICAL THERAPY 1 documented in this encounter Care Teams Burn Center Nurse Relationship Specialty Start Date End Date Jessica Navarro NP [address] [place] [address] PCP - General 08/23/20 documented as of this encounter
--- OUTSIDE RECORDS SUMMARY | 2024-04-14 18:33 | XMS_ITS | Encounter Summary ---
Author Organization [facility] Healthcare Address [address] [place] [address] Care Team Providers Care Oncology Social Worker Name Role Phone Jessica Navarro NP Primary Care Provider [phone] Encounter Details Date Type Department Care Team (Late st Contact Info) Description 06/25/2021 Documentation [facility] Physical Therapy [address] [place] [phone] Seema Oakley, PT Social History Tobacco Use Types Packs/Day Years [...] Progress Notes * Seema Oakley, PT - 06/25/2021 7:41 AM CST 06/25/21 Seema Oakley, GIO 7:41 AM Pt did not return to PT after 03/06/21 appointment. Goals not addressed. D/C PT. MATIC MACHINE OPERATOR documented in this encounter Plan of Treatment Not on file documented as of this encounter Visit Diagnoses Not on filedocumented in this encounter Care Teams Oncology Social Worker Relationship Specialty Start Date End Date Melanie, Jessica Pinto NP [address] [place] [address] PCP - General 08/23/20 documented as of this encounter
--- OUTSIDE RECORDS SUMMARY | 2024-04-14 18:33 | XMS_ITS | Encounter Summary ---
Author Organization [facility] Healthcare Address [address] [place] [address] Care Team Providers Care Ear Mold Laboratory Technician Name Role Phone Jessica Navarro NP Primary Care Provider Reason for Visit * Reason Comments PT Treatment Encounter Details Date Type Department Care Team (Late st Contact Info) Description 10/01/2020 10:00 AM CDT Therapy [facility] Physical Therapy [address] [place] [id number] Christi Chanel, SCRAP SORTER Radiculopathy, thoracic region (Primary Dx) Social History [...] of this encounter Progress Notes * Christi Chanel, SCRAP SORTER - 10/01/2020 10:00 AM CDT PT Daily Treatment Note Lilli Santos 1995 Subjective: Pt states she feels the traction is helping her. Pt states she just came from the dr about her ankle. Pain: 5/10 low back. Objective: Once patient was done with traction she started to get up and her pain was greatly increased. Pt states she has a grabbing pain across her low back every time she moves. Pt states her painnow is 10/10. Pt states it feels like her muscles are grabbing every nerve in her back. Seema Ramirez PT was consulted. Pt got herself in R S/L and prone combination (pt states it is a position of comfort).IFC and MHP applied for 15 min. At the end of IFC/MHP pt was able to move with ease. Pt states she is feeling much better than before IFC. Treatment Provided: ??* indicates not performed today ?? Sitting on Edge of treatment table: -sitting trunk flexion reaching to the floor x 5 -sitting rolling large silver ball fwd x 10 then diagonal to each side x 10 (pt reports more of a stretch to the left and more discomfort going to the right. ) ?? Quadruped rocking back toward heels x 10 Quadruped angry cat ex x10* ?? Pelvic traction int 30/10 x 15 min 80#/40#?? Prone IFC to lower back with MHP x 10 min.? (no ext ex this date)(nothing below performed) Prone over 1 pillow under pelvis Prone on elbows ??Hold 30 sec x 4 Prone press ups x attempted x 4, too painful. ?(pt states it feels like it is pinching) Hooklying low abdominal contraction 3 x10* Prone bilat hip IR stretch x 3 (pt reported no stretching) Prone right LE hip ER, IR with palm of hand over the piriformis (pt rep stretching in the glut withthe ER) Piriformis stretch with use of strap 15 x5 R ??(doing as HEP) Figure 4 for piriformis stretch 15 x4 R Clam shells x10 R --added to HEP* Supine manual piriformis stretch x 4 ?? Standing against the wall pelvic shift with right hand on wall and left hand self assisting moving hips to the right. 30 sec hold x??30 sec. * ?? Treatment Ideas Modalities for mm relaxation Prone passive shift of pelvis to the right Go into prone on elbows and prone press ups as tolerated Progress with extension ex May try mechanical pelvic traction ktape as indicated Assessment: Goals are ongoing Pt tolerated treatment well Plan: Continue to see pt per POC Start Time: 1000 End Time:1110 Christi Chanel PTA documented in this encounter Plan of Treatment Not on file documented as of this encounter Visit Diagnoses Diagnosis Radiculopathy, thoracic region- Primary Thoracic or lumbosacral neuritis or radiculitis, unspecified documented in this encounter Care Teams Ear Mold Laboratory Technician Relationship Specialty Start Date End Date Jessica Navarro NP [address] [place] [address] PCP - General 08/23/20 documented as of this encounter
--- OUTSIDE RECORDS SUMMARY | 2024-04-14 18:33 | XMS_ITS | Encounter Summary ---
Author Organization [facility] Healthcare Address [address] [place] [address] Care Team Providers Care Metal Numerical Control Programmer Name Role Phone MelanieJohnJessicalambert Pinto NP Primary Care Provider Encounter Details Date Type Department Care Team (Late st Contact Info) Description 12/25/2020 Documentation [facility] Physical Therapy [address] [place] [phone] Jaye Zayas, PT Social History Tobacco Use Types Packs/Day [...] Progress Notes * Jaye Zayas, PT - 12/25/2020 4:15 PM CDT 12/25/20 The pt attended 9 visits for her back pain. Her last visit was 10/01/20. She did not return for re-assessment for progress or DC. She is DC'd effective 10/01/20. Jaye Zayas, PT, DPT documented in this encounter Plan of Treatment Not on file documented as of this encounter Visit Diagnoses Not on filedocumented in this encounter Care Teams Metal Numerical Control Programmer Relationship Specialty Start Date End Date Navarro, Jessica Pinto NP [address] [place] [address] PCP - General 08/23/20 documented as of this encounter
--- OUTSIDE RECORDS SUMMARY | 2024-04-14 18:33 | XMS_ITS | Encounter Summary ---
Author Organization [facility] Healthcare Address [address] [place] [address] Care Team Providers Care City Manager Name Role Phone Melanie, Jessica Pinto NP Primary Care Provider Reason for Referral * Diagnostic Imaging (Routine) - Closed Specialty Diagnoses / Procedures Referred By Contac t Referred To Contact Diagnoses Left foot pain Tendinitis of ankle Procedures XR Ankle Left 3 [place] [id number] [place] [address] Phone: tel: fax: [facility] Referral ID Status Reason Start Date Expiration Date Visits Re quested Visits Authorized [id number] Closed 12/28/2020 01/27/2022 1 1 Reason for Visit * Diagnostic Imaging (Routine) - Closed Specialty Diagnoses / Procedures Referred By Jonas reeves Referred To Contact Diagnoses Left foot pain Tendinitis of ankle Procedures XR Ankle Left 3 [place] [address] [place] [address] Phone: tel: fax: [facility] Referral ID Status Reason Start Date Expiration Date Visits Re quested Visits Authorized [id number] Closed 12/28/2020 01/27/2022 1 1 Encounter Details Date Type Department Care Team (Latest Contact Info) Description 01/10/2021 7:36 AM CDT - 01/10/2021 11:59 PM CDT Hospital Encounter [facility] [address] [place] [address] [place] [id number] [facility] [address] [place] [address] Left foot pain; Tendinitis of ankle Discharge Disposition: Discharge to home or self [...] for cough 15 capsule 05/14/2020 3 hydrOXYzine (ATARAX) 25 mg tablet Take 25 mg by mouth 3 (three) times a day as needed 11/20/2020 3 hydrOXYzine (VISTARIL) 25 mg capsule Take [...] nausea or vomiting. 15 tablet 08/23/2020 2 [facility] DEPT. Ultra Test strip CHECK BLOOD SUGAR 1-2 TIMES DAILY 12/29/2020 3 TiZANidine (ZANAFLEX) 2 mg capsuleIndications:M uscle Spasm Take 2 mg by mouth 3 (three) times a day as needed for muscle spasms 1 valACYclovir (VALTREX) 500 mg tablet TAKE 1 TABLET BY MOUTH TWICE DAILY FOR 3 DAYS 11/01/2020 3 venlafaxine XR (EFFEXOR-XR) 150 mg 24 hr capsule Take 150 mg by mouth daily 01/08/2021 1 documented as of this encounter Discharge Disposition Disposition Code Departure Means Destination Discharge to home or self care documented in this encounter Plan of Treatment Not on file documented as of this encounter Procedures Procedure Name Priority Date/Time Associated Diagnosis Comments XR ANKLE LEFT 3 OR MORE VIEWS Schedule Routine, Read Routine (OP Routine) 01/10/2021 7:43 AM CDT Left foot pain Tendinitis of ankle documented in this encounter Results * XR Ankle Left [...] this encounter Visit Diagnoses Diagnosis Left foot pain Pain in soft tissues of limb Tendinitis of ankle documented in this encounter Care Teams City Manager Relationship Specialty Start Date End Date Jessica Navarro NP [address] [place] [address] PCP - General 08/23/20 documented as of this encounter
--- OUTSIDE RECORDS SUMMARY | 2024-04-14 18:33 | XMS_ITS | Encounter Summary ---
Author Organization [facility] Healthcare Address [address] [place] [address] Care Team Providers Care Pipe Roller Name Role Phone Jessica Navarro NP Primary Care Provider [phone] Reason for Referral * Diagnostic Imaging (Routine) - Closed Specialty Diagnoses / Procedures Referred By Contac t Referred To Contact Diagnoses Radiculopathy, thoracic region Procedures XR Spine Thoracic 3 Vw Jessica Navarro NP [address] [place] [address] Phone: tel: fax: [address] [phone] Referral ID Status Reason Start Date Expiration Date Visits Re quested Visits Authorized [id number] Closed 07/31/2020 08/30/2021 1 1 Reason for Visit * Diagnostic Imaging (Routine) - Closed Specialty Diagnoses / Procedures Referred By Contac t Referred To Contact Diagnoses Radiculopathy, thoracic region Procedures XR Spine Thoracic 3 Vw Jessica Navarro NP [address] [place] [address] Phone: tel: fax: [address] [phone] Referral ID Status Reason Start Date Expiration Date Visits Re quested Visits Authorized [id number] Closed 07/31/2020 08/30/2021 1 1 Encounter Details Date Type Department Care Team (Latest Contact Info) Description 07/31/2020 11:46 AM CDT - 07/31/2020 11:59 PM CDT Hospital Encounter [facility] Imaging Center [address] [place] [address] Nery Ireland MD [address] [place] [address] Jessica Navarro NP [address] [place] [address] Radiculopathy, thoracic region Discharge Disposition: Discharge to home or self [...] as needed for wheezing 1 Inhaler 05/14/2020 02/25/2024 benzonatate (TESSALON) 100 mg capsuleIndicatio ns:Cough Take 1 capsule (100 mg total) by mouth 3 (three) times a day as needed for cough 15 capsule 05/14/2020 11/24/2022 hydrOXYzine (VISTARIL) 25 mg capsule Take 25 mg by mouth 3 (three) times a day as needed for itching 02/04/2021 TiZANidine (ZANAFLEX) 2 mg capsuleIndicatio ns:Muscle Spasm Take 2 mg by mouth 3 (three) times a day as needed for muscle spasms 02/04/2021 documented as of this encounter Discharge Disposition Disposition Code Departure Means Destination Discharge to home or self care documented in this encounter Plan of Treatment Not on file documented as of this encounter Procedures Procedure Name Priority Date/Time Associated Diagnosis Comments XR SPINE LUMBAR COMPLETE 4 OR MORE VIEWS Schedule Routine, Read Routine (OP Routine) 07/31/2020 12:07 PM CDT Radiculopathy, thoracic region XR SPINE THORACIC 3 VIEWS Schedule Routine, Read Routine (OP Routine) 07/31/2020 12:07 PM CDT Radiculopathy, thoracic region documented in this encounter Results * XR Spine Lumbar 4 or More Views (07/31/2020 12:07 PM CDT) Anatomical Region Laterality Modality Spine N/A Computed Radiogr aphy 07/31/2020 12:1 5 PM CDT Impressions 07/31/2020 12:15 PM CDT 1. No acute fracture. 2. ??Mild multilevel inferior thoracic degenerative disc disease. 3. ??Mild retrolisthesis of L4-S1. Electronically signed by: Maurilio Kim M.D. Narrative 07/31/2020 12:15 PM CDT EXAMINATION: XR SPINE THORACIC 3 VIEWS, XR SPINE LUMBAR 4 OR MORE VIEWS HISTORY: Chronic Back pain. FINDINGS: 3 views thoracic and 5 views lumbar spine submitted without comparison. Thoracic spine: There are no acute fractures. ??Alignment is normal. ??There is mild inferior thoracic degenerative disc disease. Surgical clips are present. ??Thoracic old granulomatous disease is noted. Lumbar spine: There is mild retrolisthesis of L4-S1. ??The intravertebral disc space heights are normal. ??There are no fractures. Procedure Note Maurilio Kim MD - 07/31/2020 EXAMINATION: XR SPINE THORACIC 3 VIEWS, XR SPINE LUMBAR 4 OR MORE VIEWS HISTORY: Chronic Back pain. FINDINGS: 3 views thoracic and 5 views lumbar spine submitted without comparison. Thoracic spine: There are no acute fractures. Alignment is normal. There is mild inferior thoracic degenerative disc disease. Surgical clips are present. Thoracic old granulomatous disease is noted. Lumbar spine: There is mild retrolisthesis of L4-S1. The intravertebral disc space heights are normal. There are no fractures. IMPRESSION: 1. No acute fracture. 2. Mild multilevel inferior thoracic degenerative disc disease. 3. Mild retrolisthesis of L4-S1. Electronically signed by: Maurilio Kim M.D. Jessica Navarro PERIPHERAL EQUIPMENT OPERATOR IMG XR PROCEDURES Final Resu lt * XR Spine Thoracic 3 Vw (07/31/2020 12:07 PM CDT) Anatomical Region Laterality Modality Spine N/A Computed Radiogr aphy 07/31/2020 12:1 0 PM CDT Impressions 07/31/2020 12:15 PM CDT 1. No acute fracture. 2. ??Mild multilevel inferior thoracic degenerative disc disease. 3. ??Mild retrolisthesis of L4-S1. Electronically signed by: Maurilio Kim M.D. Narrative 07/31/2020 12:15 PM CDT EXAMINATION: XR SPINE THORACIC 3 VIEWS, XR SPINE LUMBAR 4 OR MORE VIEWS HISTORY: Chronic Back pain. FINDINGS: 3 views thoracic and 5 views lumbar spine submitted without comparison. Thoracic spine: There are no acute fractures. ??Alignment is normal. ??There is mild inferior thoracic degenerative disc disease. Surgical clips are present. ??Thoracic old granulomatous disease is noted. Lumbar spine: There is mild retrolisthesis of L4-S1. ??The intravertebral disc space heights are normal. ??There are no fractures. Procedure Note Maurilio Kim MD - 07/31/2020 EXAMINATION: XR SPINE THORACIC 3 VIEWS, XR SPINE LUMBAR 4 OR MORE VIEWS HISTORY: Chronic Back pain. FINDINGS: 3 views thoracic and 5 views lumbar spine submitted without comparison. Thoracic spine: There are no acute fractures. Alignment is normal. There is mild inferior thoracic degenerative disc disease. Surgical clips are present. Thoracic old granulomatous disease is noted. Lumbar spine: There is mild retrolisthesis of L4-S1. The intravertebral disc space heights are normal. There are no fractures. IMPRESSION: 1. No acute fracture. 2. Mild multilevel inferior thoracic degenerative disc disease. 3. Mild retrolisthesis of L4-S1. Electronically signed by: Maurilio V. Kim, M.D. Jessica Navarro NP IMG XR PROCEDURES Final Resu lt documented in this encounter Visit Diagnoses Diagnosis Radiculopathy, thoracic region Thoracic or lumbosacral neuritis or radiculitis, unspecified documented in this encounter Care Teams Pipe Roller Relationship Specialty Start Date End Date Navarro, Jessica Pinto NP [address] [place] [address] PCP - General 07/26/19 08/22/20 documented as of this encounter
--- OUTSIDE RECORDS SUMMARY | 2024-04-14 18:33 | XMS_ITS | Encounter Summary ---
Author Organization [facility] Healthcare Address [address] [place] [address] Care Team Providers Care Inspector Balance Bridge Name Role Phone Jessica Navarro NP Primary Care Provider Reason for Visit * Reason Comments Abdominal Pain Vomiting Diarrhea Encounter Details Date Type Department Care Team (Late st Contact Info) Description 06/12/2021 10:50 AM WET MIXER - 06/12/2021 1:03 PM WET MIXER Emergency [facility] Emergency Department [address] [place] [address] Viral gastroenteritis (Primary Dx) Discharge Disposition: Discharge to home [...] Sign Reading Time Taken Comments Blood Pressure 131/69 06/12/2021 12:57 PM WET MIXER Pulse 72 06/12/2021 12:57 PM WET MIXER Temperature 36.9 ??C (98.5 ??F) 06/12/2021 9:17 AM CS T Respiratory Rate 12 06/12/2021 12:57 PM WET MIXER Oxygen Saturation 100% 06/12/2021 12:57 PM WET MIXER Inhaled Oxygen Concentration - - Weight 93 kg (205 lb) 06/12/2021 9:17 AM WET MIXER Height 160 cm (5' 3 ) 06/12/2021 9:17 AM WET MIXER Body Mass Index 36.31 06/12/2021 9:17 AM WET MIXER documented in this encounter Discharge Diagnoses Diagnosis Unspecified abdominal pain - UNSPECIFIED ABDOMINAL PAIN Diarrhea, unspecified - DIARRHEA, UNSPECIFIED Vomiting, unspecified - VOMITING, UNSPECIFIED Unspecified asthma, uncomplicated - UNSPECIFIED ASTHMA, UNCOMPLICATED Gastro-esophageal reflux disease without esophagitis - GASTRO-ESOPHAGEAL REFLUX DISEASE WITHOUT ESOPHAGITIS Disorder of thyroid, unspecified - DISORDER OF THYROID, UNSPECIFIED Personal history of nicotine dependence - PERSONAL HISTORY OF NICOTINE DEPENDENCE documented in this encounter Discharge Instructions * Attachments The following attachments cannot be sent through Care Everywhere. * Gastroenteritis, Viral (Adult) (Barbadian) documented in this encounter Medications at [...] nausea or vomiting. 15 tablet 06/12/2021 3 [employer] Ultra Test strip CHECK BLOOD SUGAR 1-2 TIMES DAILY 12/29/2020 3 tiZANidine (ZANAFLEX) 4 mg tablet Take 1 tablet (4 mg total) by mouth every 6 (six) hours as needed 01/21/2021 4 UNABLE TO FIND Ambilify 10mg 02 3 valACYclovir (VALTREX) 500 mg tablet TAKE 1 TABLET BY MOUTH TWICE DAILY FOR 3 DAYS 11/01/2020 3 documented as of this encounter Ordered Prescriptions Prescription Sig Dispense Quantity Refills Last Filled Start Date End Date ondansetron ODT (ZOFRAN-ODT) 4 mg disintegrating tablet Dissolve 1 tablet oral every 4 hours as needed for nausea or vomiting. 15 tablet 06/12/2021 3 documented in this encounter Discharge Disposition Disposition Code Departure Means Destination Discharge to home or self care documented in this encounter ED Notes * Елена Galindo, SENIOR NET SOFTWARE DEVELOPER - 06/12/2021 10:59 AM CST HPI Chief Complaint Patient presents with ??? Abdominal Pain ??? Vomiting ??? Diarrhea 26-year-old female presents to ED with complaints of vomiting, diarrhea, and abdominal pain since Thursday. Patient states her right upper quadrant and right lower quadrant abdominal pain is constant. Patient states she is unable to keep anything down since Thursday. Patient denies any fevers, dysuria, back pain, chest pain, shortness of breath. Patient denies anyone else in the household being sick. Patient History: Patient Active Problem List Diagnosis [...] Review of Systems Review of Systems Constitutional: Negative. HENT: Negative. Respiratory: Negative. Cardiovascular: Negative. Gastrointestinal: Positive for abdominal pain (RUQ and RLQ), diarrhea and vomiting. Genitourinary: Negative. Musculoskeletal: Negative. Negative for back pain. Skin: Negative. Neurological: Negative. All other systems reviewed and are negative. Physical Exam ED Triage Vitals [06/12/21 0917] Temp Pulse Resp BP SpO2 36.9 ??C (98.5 ??F) 90 16 122/78 100 % Temp src Heart Rate Source Patient Position BP Location FiO2 (%) Tympanic -- -- -- -- Physical Exam Vitals and nursing note reviewed. Constitutional: General: She is not in acute distress. Appearance: She is well-developed. She is not ill-appearing, toxic-appearing or diaphoretic. HENT: Head: Normocephalic and atraumatic. Mouth/Throat: Pharynx: Oropharynx is clear. No oropharyngeal exudate. Eyes: Extraocular Movements: Extraocular movements intact. Cardiovascular: Rate and Rhythm: Normal rate. Heart sounds: Normal heart sounds. Pulmonary: Effort: Pulmonary effort is normal. No respiratory distress. Abdominal: General: Bowel sounds are normal. Palpations: Abdomen is soft. Tenderness: There is no abdominal tenderness. Hernia: No hernia is present. Skin: General: Skin is warm and dry. Capillary Refill: Capillary refill takes less than 2 seconds. Neurological: General: No focal deficit present. Mental Status: She is alert and oriented to person, place, and time. Psychiatric: Mood and Affect: Mood normal. Behavior: Behavior normal. MDM Medical Decision Making Differential Diagnosis or Management Options: Appendicitis, Cholecystitis, bowel obstruction Viral gastroenteritis UTI Nephrolithiasis Critical care performed: No ED Course as of 06/12/21 1250 Time: 06/12 1145 Comment: No acute inflammatory change of the abdomen or pelvis. No bowel obstruction or inflammatory change of bowel. 2. Normal appearance of the gallbladder and appendix. 3. Diverticuli are seen of the proximal sigmoid colon and distal descending colon. No acute diverticulitis. By: Елена Galindo NP Time: 06/12 1146 Comment: Pt updated on plan for PO challenge. IV fluids infusing at this time. Will continue to monitor. By: Елена Galindo NP Time: 06/12 1203 Comment: Pt able to keep crackers and fluids down but states she continues to be a little queezy. Another dose of zofran ordered. By: Елена Galindo NP Time: 06/12 1250 Comment: Pt stating she is feeling much better and is ready to go home. By: Елена Galindo NP Final diagnoses: None Елена Galindo, ANA LILIA 06/12/21 1309 Cosigned by Mirian Villa MD at 06/12/2021 4:00 PM WET MIXER MIXER MIXER Associated attestation - Mirian Villa MD - 06/12/2021 4:00 PM WET MIXER ED Attestation Based on the medical record the care appears appropriate. * Linh Lagos RN - 06/12/2021 9:14 AM CST Pt to ED via POV with complaints of R sided abdominal pain/vomiting/diarrhea since Thursday. 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 documented in this encounter Plan of Treatment Not on file documented as of this encounter Procedures Procedure Name Priority Date/Time Associated Diagnosis Comments CT ABDOMEN PELVIS W CONTRAST ED 06/12/2021 11:22 AM WET MIXER URINALYSIS AND REFLEX TO MICROSCOPIC AND CULTURE STAT 06/12/2021 10:19 AM WET MIXER HCG, URINE, QUALITATIVE STAT 06/12/2021 10:19 AM WET MIXER EGFR STAT 06/12/2021 10:01 AM WET MIXER DIFFERENTIAL AUTO STAT 06/12/2021 10: 01 AM WET MIXER CBC WITH AUTO DIFFERENTIAL STAT 06/12/2021 10:01 AM WET MIXER COMPREHENSIVE METABOLIC PANEL STAT 06/12/2021 10:01 AM WET MIXER documented in this encounter Results * CT Abdomen Pelvis W Contrast (06/12/2021 11:22 AM WET MIXER) Anatomical Region Laterality Modality Body N/A Computed Tomogra phy 06/12/2021 11:2 8 AM WET MIXER Narrative 06/12/2021 11:37 AM WET MIXER EXAM DESCRIPTION: ?? CT ABDOMEN PELVIS W CONTRAST REASON FOR STUDY: ?? Abdominal pain, acute, nonlocalized, RUQ and RLQ pain ?? Right side abd pain since Thursday ?? TECHNIQUE: CT scan of the abdomen and pelvis performed with intravenous and ?? without ??oral contrast using helical scanning technique with dynamic intravenous contrast injection. Reconstructed coronal and sagittal MPR images reviewed. All images stored on PACS. Automated exposure control was used as a dose optimization technique for this examination. CONTRAST TYPE/DOSE: ?? 100mL of IOVERSOL 320 MG IODINE/ML INTRAVENOUS SOLUTION ?? injected via ?? intravenous COMPARISON: ?? Prior exam 08/23/2020 FINDINGS: LOWER CHEST: ?? Limited views through the lung base demonstrates trivial atelectasis. ??No infiltrate or effusion. LIVER: ?? There is mild steatosis of the liver as was previously seen. GALLBLADDER: ?? No stones or inflammatory change. BILE DUCTS: ?? No intrahepatic or extrahepatic ductal dilatation. SPLEEN: ?? Normal size. ??No focal lesions. PANCREAS: ?? No identified cystic or solid masses. No significant calcifications. No adjacent inflammation or peripancreatic fluid collections. Pancreatic duct not dilated. ?? ADRENALS: ?? Normal. KIDNEYS/URINARY TRACT: ?? No identified significant cystic or solid masses. No visualized stones. No hydronephrosis or hydroureter. Symmetric enhancement. ? Urinary bladder is unremarkable. GI: ?? Diverticuli occasional diverticuli proximal sigmoid colon and distal descending colon. ??No acute diverticulitis. ??Appendix appears normal. ??Stomach and loops of small bowel are unremarkable. PERITONEUM: ?? No ascites or free air. RETROPERITONEUM: ?? No mass or adenopathy. REPRODUCTIVE: ?? No significant abnormality. VASCULATURE: ?? Abdominal aorta is without aneurysmal dilatation. ??Portal vein is patent. MUSCULOSKELETAL: ?? Minimal facet arthropathy lower lumbar spine. OTHER: ?? No other abnormality. IMPRESSION: ?? 1. ?? No acute inflammatory change of the abdomen or pelvis. ??No bowel obstruction or inflammatory change of bowel. 2. ?? Normal appearance of the gallbladder and appendix. 3. ?? Diverticuli are seen of the proximal sigmoid colon and distal descending colon. ??No acute diverticulitis. THIS IS AN ELECTRONICALLY VERIFIED FINAL REPORT 06/12/2021 11:37 AM - Electronically signed by ??Maurilio Edmonds M.D. MJ: RISHI D: ??06/12/2021 11:37 AM T: ??06/12/2021 11:37 AM Report ID: [id number] Reading Location: ??[id number] Procedure Note Maurilio Edmonds MD - 06/12/2021 EXAM DESCRIPTION: CT ABDOMEN PELVIS W CONTRAST REASON FOR STUDY: Abdominal pain, acute, nonlocalized, RUQ and RLQ pain Right side abd pain since Thursday TECHNIQUE: CT scan of the abdomen and pelvis performed with intravenousand without oral contrast using helical scanning technique with dynamic intravenous contrast injection. Reconstructed coronal and sagittal MPRimages reviewed. All images stored on PACS. Automated exposure control was used as a dose optimization technique forthis examination. CONTRAST TYPE/DOSE: 100mL of IOVERSOL 320 MG IODINE/ML INTRAVENOUSSOLUTION injected via intravenous COMPARISON: Prior exam 08/23/2020 FINDINGS: LOWER CHEST: Limited views through the lung base demonstrates trivial atelectasis. No infiltrate or effusion. LIVER: There is mild steatosis of the liver as was previously seen. GALLBLADDER: No stones or inflammatory change. BILE DUCTS: No intrahepatic or extrahepatic ductal dilatation. SPLEEN: Normal size. No focal lesions. PANCREAS: No identified cystic or solid masses. No significant calcifications. No adjacent inflammation or peripancreatic fluidcollections. Pancreatic duct not dilated. ADRENALS: Normal. KIDNEYS/URINARY TRACT: No identified significant cystic or solid masses.No visualized stones. No hydronephrosis or hydroureter. Symmetricenhancement. Urinary bladder is unremarkable. GI: Diverticuli occasional diverticuli proximal sigmoid colon and distal descending colon. No acute diverticulitis. Appendix appears normal.Stomach and loops of small bowel are unremarkable. PERITONEUM: No ascites or free air. RETROPERITONEUM: No mass or adenopathy. REPRODUCTIVE: No significant abnormality. VASCULATURE: Abdominal aorta is without aneurysmal dilatation. Portalvein is patent. MUSCULOSKELETAL: Minimal facet arthropathy lower lumbar spine. OTHER: No other abnormality. IMPRESSION: 1. No acute inflammatory change of the abdomen or pelvis. No bowel obstruction or inflammatory change of bowel. 2. Normal appearance of the gallbladder and appendix. 3. Diverticuli are seen of the proximal sigmoid colon and distaldescending colon. No acute diverticulitis. THIS IS AN ELECTRONICALLY VERIFIED FINAL REPORT 06/12/2021 11:37 AM - Electronically signed by Maurilio Edmonds M.D. MJ: RISHI Report ID: [id number] Reading Location: [id number] Елена Galindo SENIOR NET SOFTWARE DEVELOPER IMG CT PROCEDURES Final Resu lt * hCG, urine, qualitative (06/12/2021 10:19 AM WET MIXER) HCG, ur Negative Negative [facility] ([place]) Urine 06/12/2021 10:1 9 AM WET MIXER 06/12/2021 10:27 AM WET MIXER Елена Galindo NP LAB URINE ORDERABLES Final R esult [facility] ([place]) 1 [facility] Department of Laboratories [place], [place] [id number] * Urinalysis reflex to microscopic and culture Urine (06/12/2021 10:19 AM WET MIXER) Color, ur Yellow Yellow [facility] ([place]) Clarity, ur Clear Clear [facility] ([place]) Specific gravity, ur 1.027 1.003 - 1.030 [facility] ([place]) pH, urine 5.5 [facility] ([place]) Protein, ur ql Negative Negative [facility] ([place]) Glucose, ur ql Negative Negative [facility] ([place]) Ketones, ur Negative Negative [facility] ([place]) Bilirubin, ur Negative Negative [facility] ([place]) Blood, ur Negative Negative [facility] ([place]) Urobilinogen, ur <2.0 <2.0 mg/dL [facility] ([place]) Nitrite, ur Negative Negative [facility] ([place]) Leukocyte esterase, ur Negative Negative [facility] ([place]) UA reflex comment Reflex conditions for microscopic UA and culture not met. [facility] ([place]) Urine 06/12/2021 10:1 9 AM WET MIXER 06/12/2021 10:27 AM WET MIXER Narrative [facility] ([place]) - 06/12/2021 10:33 AM WET MIXER ?? Urine pH is affected by diet, medications, systemic acid-base disturbances, and renal tubular function. ??pH may affect urinary stone formation. ??For example, urine pH below 6.0 may help reduce the tendency for calcium phosphate stones and pH greater than 6.0 may reduce the tendency for uric acid stone formation. Source: [facility] [employer]. Last revised 05-07-2017 Елена Galindo NP LAB MICROBIOLOGY - GENERAL O RDERABLES Final Result [facility] ([place]) 1 [facility] Department of Laboratories [place], [place] [id number] * eGFR (06/12/2021 10:01 AM WET MIXER) eGFR 96 mL/min/1. 73 m2 [facility] ([place]) Comment: [...] interpretive data was last reviewed 2021. Blood 06/12/2021 10:0 1 AM WET MIXER 06/12/2021 10:08 AM WET MIXER us Елена Galindo NP LAB BLOOD ORDERABLES Final R esult [facility] ([place]) 1 [facility] Department [place] [address] * Differential, auto (06/12/2021 10:01 AM WET MIXER) Neutrophil abs 5.7 1.7 - 6.5 K/cumm [facility] ([place]) Imm gran abs 0.0 0.0 - 0.1 K/cumm [facility] ([place]) Lymphocyte abs 2.5 0.8 - 3.3 K/cumm [facility] ([place]) Monocyte abs 0.8 0.2 - 0.8 K/cumm [facility] ([place]) Eosinophil abs 0.3 0.0 - 0.5 K/cumm [facility] ([place]) Basophil abs 0.0 0.0 - 0.1 K/cumm [facility] ([place]) Neutrophil pct 61.2 % [facility] ([place]) Comment: Interpretive [...] was last revised on 2017. Lymphocyte pct 26.9 % [facility] ([place]) Comment: Interpretive Data Percent cell count reference ranges are not reported, since discordance with absolute values may lead to misinterpretation of CBC data. Current Interpretive Data was last revised on 2017. Monocyte pct 8.4 % [facility] ([place]) Comment: Interpretive Data Percent cell count reference ranges are not reported, since discordance with absolute values may lead to misinterpretation of CBC data. Current Interpretive Data was last revised on 2017. Eosinophil pct 2.9 % [facility] ([place]) Comment: Interpretive Data Percent cell count reference ranges are not reported, since discordance with absolute values may lead to misinterpretation of CBC data. Current Interpretive Data was last revised on 2017. Basophil pct 0.4 % [facility] ([place]) Comment: Interpretive Data Percent cell count reference ranges are not reported, since discordance with absolute values may lead to misinterpretation of CBC data. Current Interpretive Data was last revised on 2017. Blood 06/12/2021 10:0 1 AM WET MIXER 06/12/2021 10:08 AM WET MIXER us Елена Galindo SENIOR NET SOFTWARE DEVELOPER LAB BLOOD ORDERABLES Final R esult [facility] ([place] 1 [facility] Department [place] [address] * (ABNORMAL) Comprehensive metabolic panel (06/12/2021 10:01 AM WET MIXER) Sodium 142 135 - 145 mmol/L [facility] Potassium, pl 4.3 3.3 - 4.9 mmol/L [facility] Chloride 106 97 - 110 mmol/L [facility] ([place]) CO2 27 22 - 32 mmol/L [facility] ([place] Anion gap 10 2 - 15 mmol/L [facility] ([place]) BUN 14 8 - 25 mg/dL [facility] ([place]) Creatinine 0.85 0.60 - 1.10 mg/dL [facility] ([place]) Glucose 118 70 - 199 mg/dL [facility] Comment: Interpretive Data Fasting [...] interpretive data was last revised 2017. Calcium 8.9 8.5 - 10.3 mg/dL [facility] ([place]) Bilirubin, total 0.4 0.1 - 1.2 mg/dL [facility] ([place]) Protein, pl 7.5 6.5 - 8.5 g/dL [facility] ([place]) Albumin 4.5 3.5 - 5.0 g/dL [facility] ([place]) Alk phos 74 40 - 130 Units/L [facility] ([place]) ALT 46(H) 7 - 45 Units/L [facility] ([place]) AST 25 10 - 45 Units/L [facility] ([place]) Blood 06/12/2021 10:0 1 AM WET MIXER 06/12/2021 10:08 AM WET MIXER us Елена Galindo NP LAB BLOOD ORDERABLES Final R esult [facility] ([place]) 1 [facility] Department [place] [address] * CBC with auto differential (06/12/2021 10:01 AM WET MIXER) WBC 9.4 3.8 - 9.9 K/cumm [facility] ([place]) Hgb 14.6 11.9 - 15.5 g/dL [facility] ([place]) Hct 43.3 35.6 - 45.5 % [facility] ([place]) Plt 264 150 - 400 K/cumm [facility] ([place]) MPV 11.2 9.1 - 12.3 fL [facility] ([place]) RBC 4.78 3.90 - 5.20 M/cumm [facility] ([place]) MCV 90.6 81.3 - 96.4 fL [facility] ([place]) MCH 30.5 27.1 - 33.3 pg [facility] ([place]) MCHC 33.7 32.3 - 35.7 g/dL [facility] ([place]) RDW CV 11.8 11.1 - 14.9 % [facility] ([place]) RDW SD 39.0 35.7 - 48.1 fL [facility] ([place]) NRBC abs 0.00 0.00 - 0.01 K/cumm [facility] ([place]) Blood 06/12/2021 10:0 1 AM WET MIXER 06/12/2021 10:08 AM WET MIXER us Елена Galindo NP LAB BLOOD ORDERABLES Final R esult [facility] ([place]) 1 [facility] Department [place] [address] documented in this encounter Visit Diagnoses Diagnosis Viral gastroenteritis- Primary Intestinal infection due to other organism, NEC documented in this encounter Administered Medications Inactive Administered Medications - up to 3 most recent administrations Medication Order MAR Action Action Date Dose Rate Site ioversoL (OPTIRAY 320) injection 100 mL 100 mL, intravenous, Once in imaging, contrast, Starting on Thu06/12/21 at 1121, For 1 dose Contrast Given 06/12/2021 11:22 AM WET MIXER 100 mL ondansetron (ZOFRAN) injection 4 mg 4 mg, intravenous, Administer over 2 Minutes, Once, On Thu06/12/21 at 1057, For 1 dose Given 06/12/2021 11:12 AM WET MIXER 4 mg ondansetron (ZOFRAN) injection 4 mg 4 mg, intravenous, Administer over 2 Minutes, Once, On Thu06/12/21 at 1210, For 1 dose Given 06/12/2021 12:12 PM WET MIXER 4 mg sodium chloride 0.9% bolus 1,000 mL 1,000 mL, intravenous, at 1,000 mL/hr, Administer over 1 Hours, Once, On Thu06/12/21 at 1057, For 1 dose New Bag 06/12/2021 11:12 AM WET MIXER 1,000 mL 1000 mL/hr documented in this encounter Discontinued Medications Medication Sig Discontinue Reason Start Date End Da te ondansetron ODT (ZOFRAN-ODT) 4 mg disintegrating tablet Dissolve 1 tablet oral every 4 hours as needed for nausea or vomiting. 08/23/2020 06/12/2021 documented as of this encounter Active and Recently Administered Medications Times are shown in WET MIXER. Scheduled Medication Order 06/10/2021 06/11/2021 06/12/2021 ondansetron (ZOFRAN) injection 4 mg (COMPLETED) 4 mg, intravenous, Administer over 2 Minutes, Once, On Thu06/12/21 at 1057, For 1 dose 1112 (Given - Provid er: Chris Peña RN) ondansetron (ZOFRAN) injection 4 mg (COMPLETED) 4 mg, intravenous, Administer over 2 Minutes, Once, On Thu06/12/21 at 1210, For 1 dose 1212 (Given - Provid er: Chris Peña RN) sodium chloride 0.9% bolus 1,000 mL (COMPLETED) 1,000 mL, intravenous, at 1,000 mL/hr, Administer over 1 Hours, Once, On Thu06/12/21 at 1057, For 1 dose 1112 (New Bag - Prov ider: Chris Peña RN)1257 (Stopped - Provider: Chris Peña RN) PRN Medication Order 06/10/2021 06/11/2021 06/12/2021 ioversoL (OPTIRAY 320) injection 100 mL (COMPLETED) 100 mL, intravenous, Once in imaging, contrast, Starting on Thu06/12/21 at 1121, For 1 dose 1122 (Contrast Given - Provider: Meagan Tam, RT - Comment: ) documented in this encounter Orders Nursing Count Last Ordered Date First Orde red Date NURSING COMMUNICATION 1 06/12/2021 documented in this encounter Care Teams Inspector Balance Bridge Relationship Specialty Start Date End Date Jessica Navarro NP [address] [place] [address] PCP - General 08/23/20 documented as of this encounter
--- OUTSIDE RECORDS SUMMARY | 2024-04-14 18:33 | XMS_ITS | Encounter Summary ---
Author Organization [facility] Address [address] [place] [address] Care Team Providers Care Billing Checker Name Role Phone Jessica Navarro NP Primary Care Provider Encounter Details Date Type Department Care Team (Late st Contact Info) Description 08/29/2020 Telephone [facility] Orthopedics and Sports Medicine [address] [address], [place] [address] Irvin Wolff MA Social History [...] Wolff MA - 08/29/2020 3:00 PM CDT error documented in this encounter Plan of Treatment Not on file documented as of this encounter Visit Diagnoses Not on filedocumented in this encounter Care Teams Billing Checker Relationship Specialty Start Date End Date Navarro, Jessica Pinto NP [address] [place] [address] PCP - General 08/23/20 documented as of this encounter
--- OUTSIDE RECORDS SUMMARY | 2024-04-14 18:33 | XMS_ITS | Encounter Summary ---
Author Organization [facility] Address [address] [facility] [address] [place] [address] Phone Care Team Providers Care Emergency Room Clinician Name Role Phone Jessica Navarro NP Primary Care Provider Reason for Visit * Reason Onset Date Comments Injections 03/01/2021 pain diary Encounter Details Date Type Department Care Team (Late st Contact Info) Description 03/18/2021 Telephone [facility] Orthopaedic Surgery [address] [place] [address] Mia Wilson NP [address] [facility] [address] [place], [place] [id number] Injections (pain diary ) Social History Tobacco Use Types Packs/Day [...] Telephone Encounter - Sheba Osorio RMA - 03/19/2021 11:49 AM CST I spoke to Lilli, scheduled Right L5-S1 TESI She is aware of the pre injection instructions. [facility] * Telephone Encounter - Mia Wilson NP - 03/19/2021 11:08 AM CST REC: Right L5-S1 TESI -- let her know this is targeting the nerve on the side of the leg [facility] * Telephone Encounter - Sheba Osorio RMA - 03/18/2021 2:36 PM CST I spoke to Lilli, she is 65% better, still having low back pain radiating down the side of her right leg to her toes. [facility] * Telephone Encounter - Mia Wilson NP - 03/18/2021 12:38 PM CST Is the pain still in the leg? [facility] * Telephone Encounter - Aneta Krueger - 03/18/2021 8:27 AM CST THERAPEUTIC INJECTION DOS: 03/01/21 INJECTION TYPE: S1 Transforaminal Epidural Steroid Injection Rate each of the followin% 20% 50% 80% 100% Immediately? 100 6 hours after? 100 24 hours after?100 4 days after? 80 1 week after? 50 10 days after? 50 2 weeks after?50 How would you rate your overall improvement since your injection? fair Are you currently in Physical Therapy? yes How many sessions have you attended? 2 Are you performing a monitored home exercise program? yes Has your injection improved your ability to perform activities of daily living with less pain? some Are you happy with your improvement level? Somewhat [facility] documented in this encounter Plan of Treatment Not on file documented as of this encounter Visit Diagnoses Not on filedocumented in this encounter Care Teams Emergency Room Clinician Relationship Specialty Start Date End Date Navarro, Jessica Pinto NP [address] [place] [address] PCP - General 08/23/20 documented as of this encounter
--- OUTSIDE RECORDS SUMMARY | 2024-04-14 18:33 | XMS_ITS | Encounter Summary ---
Author Organization [facility] Healthcare Address [address] [place] [address] Care Team Providers Care Fundraising Assistant Name Role Phone Jessica Navarro NP Primary Care Provider Reason for Visit * Reason Comments PT Treatment Encounter Details Date Type Department Care Team (Late st Contact Info) Description 07/17/2020 9:15 AM CDT Therapy [facility] Physical Therapy [address] [place] [id number] Christi Chanel, BLADDER CHANGER Nontraumatic rupture of tendons of left foot [...] this encounter Progress Notes * Christi Chanel, BLADDER CHANGER - 07/17/2020 9:15 AM CDT PT Daily Treatment Note Lilli Danielle 1995 Subjective: Pt states when she does Inversion L ankle it feels like two bones are rubbing together medial malleoli. Pt c/o discomfort plantar surface L just distal to L great toe. Pain: 3/10 L ankle/foot Objective: Pt was very quiet during treatment today. Increase tband to blue, added theraputty to toe ex. Treatment Provided: *indicates not performed today ?? Nustep L6 6 min Bilat calf press on leg pres 65# x 20 Single leg calf press 45# x 20 on the left ?? In parallel bars: Bilat toe raises x 20 B heel raises x 20 Attempts single toe/heel raises x 10 ea B Bilat heel walking x 2 passes Bilat toe walking x 2 pases SLS on the left, x 15 sec. X 4 - no UE support Attempted partial squat x 10 Rocker Board fwd/back and R/L x 10 taps and 1 min static hold with occ UE support Blue theraband resisted DF/PF, EV/INV B x 15 each?? Gentel STM/IASTM manual to medial aspect of left foot/ankle, plantar surface of L foot and along incision line. PROM of great toe into flexion and extension Theraputty yellow for R great toe flex/ext - HEP ?? Standing on??blue foam??SLS??L??x 5 for 15 sec??min UE support* On blue foam - Bilat toe raises x??20- no UE support* On blue foam - Bilat DF, rocking back on heels x??20 - no UE support* Dome stretch, 5x for 20-30 sec each* Sitting heel slides x 10??* Then PF with toe push off x 15* Sitting towel curls x 20* BAPS L 3 fwd/back, R/L and circles CW and CCW x 20 ea* Sitting with leg extended, ankle over edge of table:??* Rock tape* ??Sit/stand X 5 on blue foam Sit/stand w/partial weight shift L x 5 Sit/stand w/75% weight on L x 5 Blue foam - rhomberg x 1 min Blue foam - tandem x 1 min ea. ?? HEP: Sitting rocker board DF/PF x 10 (gave as HEP) Sitting heel slides x 10 (garus HEP of ankle circles, and yellow theraband ex.?? 06/19/20:Instructed pt to add SLS on the left at home.?? 07/17/20 - theraputty yellow - L great toe flex and ext Treatment Ideas:Left ankle gentle stretching, PROM and mobilization Soft tissue mobilization as tolerated AROM/strengthening, ankle board sitting and progress to partial wt bearing and standing Stair ex as tolerated Modalities as indicated ktape as indicated ?? Assessment: Goals are ongoing Pt tolerated treatment well Plan: Continue to see pt per POC and advance as pt tolerates. Start Time: 915 End Time:1000 Christi Chanel PTA documented in this encounter Plan of Treatment Not on file documented as of this encounter Visit Diagnoses Diagnosis Nontraumatic rupture of tendons of left foot and ankle- Primary documented in this encounter Care Teams Fundraising Assistant Relationship Specialty Start Date End Date Jessica Navarro NP [address] [place] [address] PCP - General 07/26/19 08/22/20 documented as of this encounter
--- OUTSIDE RECORDS SUMMARY | 2024-04-14 18:33 | XMS_ITS | Encounter Summary ---
Author Organization [facility] Address [address] [facility] [address] [place] [address] Phone Care Team Providers Care Gas Transfer Operator Name Role Phone Melanie, Jessica Pinto NP Primary Care Provider [phone] Reason for Referral * Diagnostic Imaging (Routine) - Closed Specialty Diagnoses / Procedures Referred By Contac t Referred To Contact Radiology Diagnoses Lumbar radiculopathy Procedures IR Transforaminal Epidural Injection Lumbar Sacral 1 Level Right Mia Wilson NP [address] [facility] [address] [place] [address] Phone: tel: fax: [address] [address] Referral ID Status Reason Start Date Expiration Date Visits Re quested Visits Authorized [id number] Closed 02/25/2021 03/27/2021 1 1 * Consultation (Routine) - Closed Specialty Diagnoses / Procedures Referred By Contac t Referred To Contact Physical Therapy Diagnoses Lumbar radiculopathy Mia Wilson NP [address] [facility] [address] [place] [address] Phone: tel: fax: [facility] [place] [address] [place] [phone] Phone: tel: fax: Referral ID Status Reason Start Date Expiration Date V isits Requested Visits Authorized [id number] Closed Specialty Services Required 02/20/2021 03/22/2022 8 8 Question Answer PTRFR PT Evaluate and Treat Reason for Visit Low back pain with right S1 radiculopathy Therapy options discussed with patient? Yes Location provided for therapy services is: Patient requested/Patient preferred Please select the performing region: External Order [[id number]] To loc/pos [facility] [place] [[id number]] # of visits: 8 Comments DX: Low back pain with right S1 radiculopathy Lumbar stabilization - neutral Neuromobilization Lower extremity flexibility - hamstrings and hip flexors Core Strengthening Hip abductor and extensor strengthening Advance to tri-planar exercise Education for ergonomics and functional skills Home Exercise Program Modalities: E-Stim and Ultrasound as needed * PLEASE FAX PROGRESS REPORTS: PLEASE FAX REPORTS THAT REQUIRE A SIGNATURE: [phone] Mia Wilson NP PLEASE CALL IF QUESTIONS [phone] [facility] [address] [place] [address] [place] [address] Encounter Details Date Type Department Care Team (Latest Contact Info) Description 02/20/2021 9:30 AM CDT Office Visit [facility] Orthopaedic Surgery [address] [facility] [address] [place] [address] Mia Wilson NP [address] [facility] [address] [place] [address] Lumbar radiculopathy (Primary Dx) Social History Tobacco [...] on file documented as of this encounter Patient Instructions * Patient Instructions* Mia Wilson NP - 02/20/2021 9:30 AM CDT Images from the original note were not included. Lilli Santos 1995 Lumbar radiculopathy [M54.16] TO DO: Recommend ice to lower back 20 minutes to 3 times a day Right S1 transforaminal epidural steroid nerve root injection Start gabapentin 300 milligrams at bedtime and tolerating without side effects, may increase to 600milligrams Physical therapy for lumbar stabilization Follow-up 6 weeks If your symptoms should worsen, you can reach your Provider through the office at during regular business hours M-F from 8:00 a.m. to 4:30 p.m. After 4:30 p.m. or on weekends, please call the Physician/Exchange at . If your symptoms worsen and you are unable to reach anyone at either of the numbers provided, you should seek further medical attention in the ER or with your primary care provider. Mia Wilson NP Fluoroscopically (X-ray) Guided Spinal Injection Pre-Procedure Instructions Covid 19 and your Steroid Injection To ensure effectiveness of your COVID 19 vaccine and to improve your ability to monitor potential side effects, you should speak with your provider if: ??? You had the vaccine in the last 2 weeks ??? You plan to have the vaccine ??? You are immunocompromised ??? Should you have any questions regarding your procedure, contact our office at [phone]. About the procedure: A mixture of a cortisone and local anesthetic (numbing medication) will be injected into the space around the nerves (epidural space). The anesthetic typically numbs the area for 1-2 hours, and may provide some immediate relief. The cortisone medication usually takes 3-5 days to start to take effect and up to two weeks to get the full benefit. Should you have any questions regarding your procedure, contact our office at [phone]. Prior to the procedure: ??? Allergies to x-ray contrast dye or local anesthetics: Alert our office if you have any history of allergies to local anesthetics (such as Novocain or lidocaine) or x-ray contrast dye. ??? Certain medications must be stopped prior to receiving a spinal injection. Please review the list below and follow the instructions for stopping that medication. Medication to be stopped (days prior to injection): If you are taking any of the medications listed below, check with your prescribing physician (primary care physician or specialist) about stopping the medication as detailed below. In the event your physician doesn't want medications stopped, contact our office immediately. ??? Aspirin - 5 days o (Acetaminophen/Tylenol may be used for pain relief instead if no liver problems) ??? Coumadin (Warfarin) - 5 days o INR levels must be ordered and drawn within 24 hour of procedure. This test will be ordered for guidance of your orthopedic condition only. Follow up with your managing provider for guidance regarding management of warfarin dosing. ??? Eliquis (Apixaban) - 3 days ??? NSAIDs - non-steroid anti-inflammatory drugs such as: Motrin, Aleve, Ibuprofen, Meloxicam, Diclofenac, etc. - 5 days o (Acetaminophen/Tylenol may be used for pain relief instead if no liver problems) ??? Plavix (Clopidogrel) - 7 days ??? Pradaxa (Dabigatran) - 4 days ??? Xarelto (Rivaroxaban) - 3 days If you are taking any of the following medications, consult with the prescribing physician for directions on stopping prior to your injection: ??? Acenocoumarol ??? Aggregnox, Persantine (Dipyridamole) ??? Arixtra (Fondaparinux) ??? Brilinta (Ticagrelor) ??? Effient (Prasugrel) ??? Fragmin (Dalteparin) ??? Heparin ??? Lovenox (Enoxaparin) ??? Pletal (Cilostazol) ??? Savaysa (Edoxaban) Do NOT stop any other medication (blood pressure meds, diabetes meds, etc.) not listed above. On the day of the procedure: ??? Please arrive 30 minutes prior to your injection time for registration. If you arrive more than15 minutes past your scheduled injection time, your procedure may need to be rescheduled. ??? Driving: Please consider having someone drive you. The anesthetic may cause temporary numbness. After the procedure: ??? You may resume all medications the day after the procedure, including anti- inflammatories and blood thinners / anti-coagulants. ??? You will be given written discharge instructions after your procedure. Diabetic patients: Steroid injections, no matter what location, may lead to higher blood glucose (sugar) levels temporarily. Most commonly, the higher levels will return to normal within 1-3 days, though effects may last longer. Rises in blood glucose levels may be more significant in patients withpoorly controlled type 2 diabetes (those with HbA1c levels greater than 8) and those with type I diabetes. Therefore we ask that you follow the additional guidelines below: ??? Check fasting (data warehouse architect prior to first meal of the day) and post- prandial (following meals) blood glucose levels 3 days prior to scheduled injection. ??? Check fasting and post-prandial blood glucose levels for 7 days following your injection. ??? If your blood glucose is greater than 200mg/dL on the day of the scheduled procedure, the procedure may be rescheduled due to increased risk of complications, per physician's judgment. ??? Contact the physician who manages your diabetes if your blood sugar is significantly elevated (for example, over 100mg/dL higher than your pre- injection level) or if blood sugar levels remain elevated 2 days after receiving the injection, to discuss whether a change in medication dosing is warranted. Procedure Billing: ??? Our [facility] orthopedic specialists treat patients at [facility] facilities, which means you may receive two separate bills. One bill is for the physician and the other is for the facility charges. If you have questions regarding a escobedo estimation for the services or a recently received bill, please contact: o [facility] Escobedo Estimation: [phone] or toll free [phone] [facility] Patient Services: [phone] or toll free [phone] o [facility] Patient Billing Services: [phone] or toll free [phone] documented in this encounter Progress Notes * Mia Wilson NP - 02/20/2021 9:30 AM CDT NEW PATIENT VISIT CHIEF COMPLAINT My spine REFERRING PROVIDER Renard Naqvi MD HISTORY OF PRESENT ILLNESS Lilli Santos is a 25 y.o. presents today for further evaluation of back and leg pain. Has seen for chronic left medial ankle and forefoot pain with referral to Dr. Naqvi to further evaluate for tarsal tunnel. Dr. Naqvi has referred for lumbar radicular pain pattern. She describes severe, sharp, dull, aching back pain primarily on the right but will go across to the left and radiates intothe right leg in S1 distribution. Pain increases with all activities. She is having pain at night disrupting sleep. No focal weakness or paresthesia. No change in bowel or bladder function. Has attended physical therapy for her ankles and had a few sessions of lumbar traction. Stated once the back locked up after traction. Has completed 3 steroid tapers. Presently taking ibuprofen and tizanidine.Had therapy for the ankle and few sessions for the back in addition to massage. PAST MEDICAL HISTORY She has a past medical history of Anxiety, Asthma, Depression, GERD (gastroesophageal reflux disease), and Thyroid disease. PAST SURGICAL HISTORY She has a past surgical history that includes Breast surgery; Thyroid surgery; and Ankle surgery. INITIAL REVIEW OF MEDICATIONS She has a current medication list which includes the following prescription(s): albuterol hfa, escitalopram, metformin, onetouch ultra test, tizanidine, UNABLE TO FIND, benzonatate, hydroxyzine, nitrofurantoin monohydrate, ondansetron odt, and valacyclovir. ALLERGIES She is allergic to chiu. SOCIAL [...] her father and mother. REVIEW OF SYSTEMS Negative per [facility] history. PHYSICAL EXAMINATION CONSTITUTIONAL: Well-appearing, in no apparent distress EYES: No scleral icterus or conjunctival hemorrhage CARDIOVASCULAR: Skin warm and well-perfused, no peripheral edema RESPIRATORY: Breathing unlabored without accessory muscle use PSYCHIATRIC: Alert, cooperative, appropriate mood and affect SKIN: No lesions or rashes on exposed skin MUSCULOSKELETAL: Gait without deviation. Lumbar range of motions restricted and painful with flexion, extension. No focal tenderness over the lumbar spinous process or paraspinal muscles. Right lumbar paraspinal muscles are hypertrophied and increased tension over the left. Bilateral hip flexion, knee flexion/extension, ankle dorsiflexion and EHL strength is 5/5. Able to heel and toe walk withoutweakness. Right hip flexion, internal and external rotation increases low back pain. Positive Julianne's increasing low back and posterior pelvic pain. No focal tenderness over the right SI joint. Negative Gaenslen, sacral and thigh thrust. NEUROLOGIC: 2+ bilateral patellar and Achilles deep tendon reflexes. Sensation intact to the bilateral lower extremities. Positive right sit slump with tibial bias. Negative femoral nerve stretch. Negative Babinski. No clonus. REVIEW OF IMAGING/STUDIES Reviewed the images of the lumbar MRI obtained February 11, 2021. My independent interpretation: L2-3 right paracentral disc protrusion with right lateral recess narrowing. Mild central canal stenosis. L3-4 mild disc bulging with mild facet arthritis L4-5 small disc bulging with mild facet arthritis . L5-S1 moderate disc bulge with small right paracentral protrusion compressing the right S1 descending nerve root. IMPRESSION/DIAGNOSIS Right S1 radiculopathy TREATMENT/PLAN History, exam, imaging findings and working diagnosis are reviewed with the patient today. Recommend moving forward with a right S1 transforaminal epidural steroid injection. The injection procedure,risk and benefit discussed and she would like to move forward with this. Recommend trial of gabapentin, starting 300 mg at bedtime, if tolerated for 5 days, increase to 600 mg at bedtime. Discussed the action, side effects and perceived benefits. We discussed a course of physical therapy directed at lumbar stabilization. Improve muscle imbalances, addressing the lower extremities, including flexibility and strengthening. Core strengthening. Reviewed red flags. All questions were answered at this time. Follow up in 6 weeks for re-evaluation. Mia Wilson RN, ANP-[facility] Orthopedics Division of Physical Medicine and Rehabilitation In collaboration with Dr. Ferguson Portions of this note were dictated using M*Modal Fluency Direct speech recognition software. Cosigned by Reggie Ferguson MD at 02/20/2021 10:45 AM CDT documented in this encounter Plan of Treatment Scheduled Referrals Name Type Priority Associated Diagnoses Orde r Schedule Ambulatory referral order to Physical Therapy - Outpatient Referral Routine Lumbar radiculopathy Expected: 02/21/2021 (Approximate), Expires: 02/20/2022 documented as of this encounter Results * IR Transforaminal Epidural Injection Lumbar Sacral 1 Level Right (03/01/2021 3:13 PM CDT) Narrative [facility] - 03/01/2021 3:13 PM CDT The images from this study are not interpreted by Radiology. ??Please refer to the physician's procedure / OR operative note. us Mia Wilson SUPERVISOR POLICY CHANGE CLERKS IMG IR PROCEDURES Final Resul t [facility] documented in this encounter Visit Diagnoses Diagnosis Lumbar radiculopathy- Primary Thoracic or lumbosacral neuritis or radiculitis, unspecified Lumbar radiculopathy- Primary Thoracic or lumbosacral neuritis or radiculitis, unspecified documented in this encounter Discontinued Medications Medication Sig Discontinue Reason Start Date End Da te venlafaxine XR (EFFEXOR-XR) 150 mg 24 hr capsule Take 150 mg by mouth daily 01/08/2021 02/20/2021 documented as of this encounter Historical Medications * This list may reflect changes made after this encounter. UNABLE TO FIND Ambilify 10mg 023 escitalopram (LEXAPRO) 10 mg tablet Take 10 mg by mouth daily 04/14/2022 added in this encounter Care Teams Gas Transfer Operator Relationship Specialty Start Date End Date Navarro, Jessica Pinto NP [address] [place], [place] [id number] PCP - General 08/23/20 documented as of this encounter
--- OUTSIDE RECORDS SUMMARY | 2024-04-14 18:33 | XMS_ITS | Encounter Summary ---
Author Organization [facility] Healthcare Address [address] [place] [address] Care Team Providers Care Communication Manager Name Role Phone Melanie Jessica Pinto NP Primary Care Provider Reason for Visit * Reason Comments PT Treatment Encounter Details Date Type Department Care Team (Late st Contact Info) Description 02/18/2021 1:45 PM CDT Therapy [facility] Physical Therapy [address] [place] [id number] Christi Chanel, SOFTWARE INTEGRATOR Left foot pain (Primary Dx) Social History [...] as of this encounter Progress Notes * Chritsi Chanel, SOFTWARE INTEGRATOR - 02/18/2021 1:45 PM CDT PT Daily Treatment Note Llili Santos 1995 Subjective: Pt states HEP is not changing anything. Pt states she is getting a consult with a back specialist this week. Pt states her back pain is currently 7/10. Pt states most days her back pain just stays about 7/10 Pt states she bought new [employer] and the insoles have good support and that does seem to help a bit. Pt states she has been diagnosed with Diabetes since the last time she ws a patient here. Pain: 4/10 B feet. Objective: Treatment Provided: EOM: -Seated rocker board x 15 - Long sitting B ankle ROM - w/tband green x 15 ea - towel crunches x 10 B Blue foam: - Rhomberg x 1 min - Tandem R/L and L/R 30 sec ea Nustep L6 x 5 min Initial HEP instruction: Ankle alphabet, seated gastroc stretch with towel, Standing gastroc stretch, Standing soleus stretch Patients understanding of HEP: Pt acknowledged and demonstrated their understanding of the initial HEP. ?? Treatment Ideas: Core/hip/knee/ankle/toe strengthening Balance activities Gait training Modalities (prn) - US, CP, MHP, IFC Assessment: Goals are ongoing Pt tolerated treatment well Plan: Continue to see pt per POC Start Time: 1345 End Time: 1430 Christi Chanel PTA documented in this encounter Plan of Treatment Not on file documented as of this encounter Visit Diagnoses Diagnosis Left foot pain- Primary Pain in soft tissues of limb documented in this encounter Care Teams Communication Manager Relationship Specialty Start Date End Date Jessica Navarro NP [address] [place] [address] PCP - General 08/23/20 documented as of this encounter
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
--- OUTSIDE RECORDS SUMMARY | 2024-04-14 18:33 | XMS_ITS | Encounter Summary ---
Author Organization [facility] Healthcare Address [address] [place] [address] Care Team Providers Care Luggage Repairer Name Role Phone Jessica Navarro NP Primary Care Provider Reason for Visit * Reason Comments PT Treatment Encounter Details Date Type Department Care Team (Late st Contact Info) Description 09/05/2020 11:15 AM CDT Therapy [facility] Physical Therapy [address] [place] [phone] Beronica Contreras, PT Radiculopathy, thoracic region (Primary Dx) Social [...] Progress Notes * Beronica Contreras, PT - 09/05/2020 11:15 AM CDT PT Daily Treatment Note Lilli Santos 1995 Subjective: Pt states she had a rough night last night and her pain is increased today. Pain: 6/10 R low back Objective:Initiated pelvic traction today. Treatment Provided: * indicates not performed today Prone on elbows Hold 30 sec x 4 Prone press ups x 2 - pt c/o pain shooting to her buttock - activity stopped. Hooklying low abdominal contraction 3 x10 Piriformis stretch with use of strap 15 x4 R --added to HEP Figure 4 for piriformis stretch 15 x4 R Clam shells x10 R --added to HEP Standing against the wall pelvic shift with right hand on wall and left hand self assisting moving hips to the right. 30 sec hold x 4 Pelvic traction int 30/10 x 10 min 60#/20# * In prone IFC to right side of lower back with MHP x 10 min. ?? Treatment Ideas Modalities for mm relaxation Prone passive shift of pelvis to the right Go into prone on elbows and prone press ups as tolerated Progress with extension ex May try mechanical pelvic traction ktape as indicated ?? Assessment: Goals are ongoing. Pt tolerated treatment fairly well. Pt reported liking the piriformis stretch. Pt was tender along (R) gluteal region, lateral hip and thigh. Pt noted a significant decrease in pain after today's treatment (07/04) Plan: Continue to see pt per POC and advance as tolerated. Start Time: 1115 End Time: 1202 Beronica Contreras PT documented in this encounter Plan of Treatment Not on file documented as of this encounter Visit Diagnoses Diagnosis Radiculopathy, thoracic region- Primary Thoracic or lumbosacral neuritis or radiculitis, unspecified documented in this encounter Care Teams Luggage Repairer Relationship Specialty Start Date End Date Jessica Navarro NP [address] [place] [address] PCP - General 08/23/20 documented as of this encounter
--- OUTSIDE RECORDS SUMMARY | 2024-04-14 18:33 | XMS_ITS | Encounter Summary ---
Author Organization [facility] Medical Group Address [address] [address] Care Team Providers Care Relay Worker Name Role Phone Jessica Navarro NP Primary Care Provider Reason for Visit * Reason Comments Post-op Pain Encounter Details Date Type Department Care Team (Late st Contact Info) Description 07/19/2020 9:30 AM CDT Office Visit [facility] [address] [place] [phone] Kishan Broussard MD [address] [address] Nontraumatic rupture of tendons of left foot [...] Pressure - - Pulse - - Temperature 36.2 ??C (97.1 ??F) 07/19/2020 9:29 AM CD T Respiratory Rate - - Oxygen Saturation - - Inhaled Oxygen Concentration - - Weight 88.5 kg (195 lb) 07/19/2020 9:29 AM CDT Height 160 cm (5' 3 ) 07/19/2020 9:29 AM CDT Body Mass Index 34.54 07/19/2020 9:29 AM CDT documented in this encounter Ordered Prescriptions Prescription Sig Dispense Quantity Refills Last Filled Start Date End Date methylPREDNISolone (MEDROL DOSEPACK) 4 mg DosepackIndication s:Nontraumatic rupture of tendons of left foot and ankle Take as directed on package 1 packet 07/19/2020 documented in this encounter Progress Notes * Kishan Broussard MD - 07/19/2020 9:30 AM CDT Patient returns today 3 months postop. She continues to have occasional popping but no locked down.She is having primarily pain in the ankle medially adjacent to the release site likely secondary toscar tissue. Examination today confirms no deformity. Gait pattern is normal. There was no recurrent triggering. Diagnosis-status post trigger toe release/tendon repair. Plan-try Medrol Dosepak. Continue home exercises. Return to this office in 3 weeks. documented in this encounter Plan of Treatment Not on file documented as of this encounter Visit Diagnoses Diagnosis Nontraumatic rupture of tendons of left foot and ankle- Primary documented in this encounter Care Teams Relay Worker Relationship Specialty Start Date End Date Jessica Navarro NP [address] [place] [address] PCP - General 07/26/19 08/22/20 documented as of this encounter
--- OUTSIDE RECORDS SUMMARY | 2024-04-14 18:33 | XMS_ITS | Encounter Summary ---
Author Organization [facility] Healthcare Address [address] [place] [address] Care Team Providers Care Fitting Room Attendant Name Role Phone Jessica Navarro NP Primary Care Provider [phone] Reason for Visit * Reason Comments PT Treatment Encounter Details Date Type Department Care Team (Late st Contact Info) Description 07/23/2020 9:15 AM CDT Therapy [facility] Physical Therapy [address] [place] [phone] Jaye Zayas, PT Nontraumatic rupture of tendons of left foot [...] Progress Notes * Jaye Zayas, PT - 07/23/2020 9:15 AM CDT PT Daily Treatment Note Lilli Santos 1995 Subjective:Pt states she saw the Dr last week and she states he said he wished it was healing better. She states he did prescribe her some steroids but she has not gotten the prescription yet or started taking them. Pt states if she tries to do everything activities it's not too bad. She states if she tries to do more walking, such as going to the zoo, she is in too much pain. She states for every day activites she states she feels about 50% better, but for other activities such as maybe going to the gym it feels about 30% better. She state the numbness is only about 10% better. She state there is popping sensation that is back. She states it is not locking down but it is still popping. Shestates she has some pain on the NuStep with dorsiflexion. She states anytime her foot is upward like that she gets some pain. Pain: 07/04 L ankle/foot Objective: Several minutes spent with pt discussing her current status, Dr emmanuel and overall improvement. Treatment Provided: *indicates not performed today ?? Nustep L6 6 min Bilat calf press on leg pres 65# x 20 * Single leg calf press 45# x 20 on the left* In parallel bars rocker board fwd/bkwd and side to side x 15 reps then 1 min hold each. (no ex below performed this date.) In parallel bars: Bilat toe raises x 20 B heel raises x 20 Attempts single toe/heel raises x 10 ea B Bilat heel walking x 2 passes Bilat toe walking x 2 pases SLS on the left, x 15 sec. X 4 - no UE support Attempted partial squat x 10 Blue theraband resisted DF/PF, EV/INV B x 15 each??* Gentle STM/IASTM manual to medial aspect of left foot/ankle, plantar surface of L foot and along incision line. Rock tape on left medial great toe then running plantar and medial foot. One strip also on the dorsum of the toe up dorsum of foot. PROM of great toe into flexion and extension* Theraputty yellow for R great toe flex/ext - HEP* ?? (no ex below performed this date) Standing on??blue foam??SLS??L??x 5 for 15 sec??min [...] leg extended, ankle over edge of table:??* ??Sit/stand X 5 on blue foam Sit/stand [...] Assessment: Goals are ongoing Pt tolerated treatment well. Plan: Continue to see pt per POC and advance as pt tolerates. Start Time: 915 End Time:1000 Jaye Zayas, PT, DPT documented in this encounter Plan of Treatment Not on file documented as of this encounter Visit Diagnoses Diagnosis Nontraumatic rupture of tendons of left foot and ankle- Primary documented in this encounter Care Teams Fitting Room Attendant Relationship Specialty Start Date End Date Jessica Navarro NP [address] [place] [address] PCP - General 07/26/19 08/22/20 documented as of this encounter
--- OUTSIDE RECORDS SUMMARY | 2024-04-14 18:33 | XMS_ITS | Encounter Summary ---
Author Organization [facility] Healthcare Address [address] [place] [address] Care Team Providers Care Clay Processing Labourer Name Role Jessica England NP Primary Care Provider [phone] Reason for Visit * Reason Comments PT Initial Eval * Consultation (Routine) - Closed Specialty Diagnoses / Procedures Referred By Joans reeves Referred To Contact Physical Therapy Diagnoses Lumbar radiculopathy Mia Wilson NP [address] [facility] [address] [place] [address] Phone: tel: fax: [facility] [employer] [place] [address] [place] [phone] Phone: tel: fax: Referral ID Status Reason Start Date Expiration Date V isits Requested Visits Authorized [id number] Closed Specialty Services Required 02/20/2021 03/22/2022 8 8 Encounter Details Date Type Department Care Team (Late st Contact Info) Description 02/26/2021 11:00 AM CDT Therapy [facility] Physical Therapy [address] [place] [phone] Seema Oakley PT Lumbar radiculopathy (Primary Dx) Social History Tobacco [...] Progress Notes * Seema Oakley, PT - 02/26/2021 11:00 AM CDT PT Initial Evaluation Lilli Santos 1995 25 y.o. female Mia Wilson SHIPMASTER [address] [facility] [address] [place] [address] ICD-9-CM ICD-10-CM 1. Lumbar radiculopathy 724.4 M54.16 Ambulatory referral order to Physical Therapy - Subjective: History of Present Condition Description of onset: Pt states her low back has been bothering her for years since she was in highschool. She states she is getting an injection in her back this Thursday. She states she is having pain along her R lower back region and has to change positions frequently due to the pain. She c/o numbness and tingling in her R LE to toes at times. Pt completes Oswestry scoring 42% impairment. Pain Current pain ratin At best pain ratin At worst pain ratin Location: R lower back Quality: Dull ache, Burning, Sharp (numbness and tingling) Relieving factors: Medications, Change in position (muscle relaxers and gabapentin) Exacerbating factors: Movement, Activity, Lifting (bending over or sitting too long) Progression: No change Hand dominance: Right Social Support Prior level of function: Ambulatory Lives in: One-story house Lives with: (family) Work History Current occupation: not employed Diagnostic Tests MRI: Abnormal (DDD L2-3 and L5-S1, mild disc protrusion L5-S1) Treatments Previous treatment: Physical therapy, Medication Current treatment: Physical therapy, Medication Patient/Caregiver Goals Goals for therapy: Decreased pain, Increased strength Other goals: 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 GAIT: Pt ambulates with antalgic gait R LE due to increased R LBP today. ROM: Lumbar AROM: Flexion = 50% limited - pt c/o increased R LBP Extension = 50% limited - pt c/o increased R LBP LF R/L = normal Supine lumbar rotation is limited with knees to L causing pain in R LB FLEXIBILITY: R hamstrings = -30 deg with 90/90 test B gastrocs = minimally limited B piriformis = minimally limited with pt c/o pain R lower back with testing on R B hip flexors = normal with pt c/o pain R LB with testing R LE STRENGTH: B LE's = 5/5 throughout except: R knee extension = 4+/5 R hip flexion = 4/5 R hip abduction = 3+/5 (pain) R hip extension = 4-/5 B hip ER (prone) = 4+/5 B hip IR (prone) = 4/5 Lower abdominals = 3+/5 REFLEXES: B LE reflexes are intact and similar. PALPATION: Pt is moderately tender along R lumbar region into R PSIS and lateral R hip to greater trochanter region. Minimal muscle tightness noted in lumbar paraspinals. SPECIAL TESTS: SIJ alignment: no dysfunction noted with supine and prone assessment Treatment Provided: HEP instruction - LTR stretch, supine R LE neural glide (90/90 hamstring position), supine marching with isometric abdominals using green tband, and seated B hip IR with green tband and isometric hip adduction using pillow. Rock Tape to R lumbar/PSIS region - star pattern TREATMENT IDEAS: *No traction* Nu-step (warm-up) Calf stretch on dome step Rocker Board - stability maintaining neutral spine Tandem stance - maintain neutral spine Marching - maintain neutral spine Sidestepping with tband - maintain neutral spine Monster walks with tband - maintain neutral spine Seated R LAQ - neural glide Seated B hip IR with green tband and isometric hip adduction with pillow Supine LTR stretch Supine marching with isometric abdominals using green tband Supine clam shells with green tband Supine BKFO's with isometric abdominals using green tband Supine gluteal sets Supine manual R hamstring and R piriformis stretches Sidelying clam shells R LE Quadruped hip extension - neutral spine Quadruped UE flexion - neutral spine Rock Tape - prn Modalities - prn Education on posture and neutral spine with all activities - body mechanics Assessment/Plan: Assessment Impairments: abnormal muscle tone, impaired body mechanics, abnormal gait, abnormal or restricted ROM, flexibility, impaired physical strength, muscle length, activity tolerance, impaired posture, lacks appropriate home exercise program, pain with function Assessment details: Pt will benefit from PT to address impairments. Prognosis: good Prognosis details: Pt is motivated to decrease her pain. Goals STG 1:: Pt to be independent and compliant with HEP in 2 weeks. Goal status: New STG 2:: Pt to demonstrate understanding of maintaining neutral spine during daily activities and with exercises in 2-3 weeks. Goal status: New STG 3:: Pt to increase lumbar AROM flexion and extension = 25% limited with min/no c/o increased R LBP in 2-3 weeks. Goal status: New STG 4:: Decrease tenderness of R lumbar/PSIS region to minimal with palpation to decrease pain complaints in 2-3 weeks. Goal status: New STG 5:: Pt to state her R LBP is less than 6/10 and R LE symptoms have decreased 25% in frequency by 2-3 weeks. Goal status: New LTG 1:: Pt to score less than 35% impairment on Oswestry indicating improved functional mobility with less pain by D/C. Goal status: New LTG 2:: Pt to improve strength of lower abdominals = 4-/5, R hip flexion = 4+/5, R hip abduction = 4-/5, R hip extension = 4/5, and B hip IR = 4+/5 for improved trunk/core stability with all activities by D/C. Goal status: New LTG 3:: Pt to improve R hamstring length = -20 deg with 90/90 test and R piriformis length to normal with min/no pain complaints for improved flexibility with all activities by D/C. Goal status: New LTG 4:: Pt to demonstrate full lumbar AROM with min/no c/o R LBP for improved mobility with less pain by D/C. Goal status: New LTG 5:: Pt to state her R LE symptoms have decreased by 50% in frequency and intensity by D/C. Goal status: New Plan Start time: 1105 End time: 1151 Therapy options: will be seen for skilled therapy services Planned modality interventions: interferential current, ultrasound, cryotherapy, thermotherapy (hydrocollator packs) (prn) Planned therapy interventions: abdominal trunk stabilization, body mechanics training, functional ROM exercises, postural training, strengthening, Kinesiotaping, stretching, balance/weight-bearing training, home exercise program, manual therapy, flexibility Frequency: 2 x/week Duration in visits: (8 visits) Discussed with: patient Seema Oakley PT documented in this encounter Plan of Treatment Not on file documented as of this encounter Visit Diagnoses Diagnosis Lumbar radiculopathy- Primary Thoracic or lumbosacral neuritis or radiculitis, unspecified documented in this encounter Orders Outpatient Referral Count Last Ordered Date Fir st Ordered Date AMB REFERRAL ORDER TO PHYSICAL THERAPY 1 documented in this encounter Care Teams Clay Processing Labourer Relationship Specialty Start Date End Date Jessica Navarro NP [address] [place] [address] PCP - General 08/23/20 documented as of this encounter
--- OUTSIDE RECORDS SUMMARY | 2024-04-14 18:33 | XMS_ITS | Encounter Summary ---
Author Organization [facility] Healthcare Address [address] [place] [address] Care Team Providers Care Oven Heater Helper Name Role Phone Jessica Navarro NP Primary Care Provider Reason for Referral * Diagnostic Imaging (Routine) - Closed Specialty Diagnoses / Procedures Referred By Contac t Referred To Contact Radiology Diagnoses Lumbar radiculopathy Procedures IR Transforaminal Epidural Injection Lumbar Sacral 1 Level Right Mia Wilson NP [address] [facility] [address] [place] [address] Phone: tel: fax: [address] [phone] Referral ID Status Reason Start Date Expiration Date Visits Re quested Visits Authorized [id number] Closed 02/25/2021 03/27/2021 1 1 Reason for Visit * Diagnostic Imaging (Routine) - Closed Specialty Diagnoses / Procedures Referred By Contac t Referred To Contact Radiology Diagnoses Lumbar radiculopathy Procedures IR Transforaminal Epidural Injection Lumbar Sacral 1 Level Right Mia Wilson NP [address] [facility] [address] [place] [address] Phone: tel: fax: [address] [phone] Referral ID Status Reason Start Date Expiration Date Visits Re quested Visits Authorized [id number] Closed 02/25/2021 03/27/2021 1 1 Encounter Details Date Type Department Care Team (Latest Contact Info) Description 03/01/2021 2:16 PM CDT - 03/01/2021 11:59 PM CDT Hospital Encounter [facility] [address] [facility] [place] [address] [place] [address] [place] [address] Lumbar radiculopathy (Primary Dx) Discharge Disposition: Discharge [...] Sign Reading Time Taken Comments Blood Pressure 135/84 03/01/2021 3:16 PM CDT Pulse 68 03/01/2021 3:16 PM CDT Temperature - - Respiratory Rate 18 03/01/2021 3:16 PM CDT Oxygen Saturation 100% 03/01/2021 3:16 PM CDT Inhaled Oxygen Concentration - - Weight - [...] 300 mg capsule Gabapentin 300 mg. Take 1 at HS, if tolerated after 5 days may increase to 2 at HS. 60 capsule 02/20/2021 1 hydrOXYzine (ATARAX) 25 mg tablet Take [...] Progress Notes * Sal Vines DO - 03/01/2021 3:00 PM CDT S1 Transforaminal Epidural Steroid Injection [facility] Department of Orthopedic Surgery Division of Physical Medicine and Rehabilitation Patient name: Lilli Santos Date of : 1995 Date of service: 03/01/2021 Lilli Santos presents to the fluoroscopy suite for a fluoroscopically guided right S1 transforaminal epidural steroid injection for conservative treatment of lumbosacral radiculopathy with lumbar disc displacement. After informed consent was obtained, the patient lay in the prone position on the fluoroscopy table. The area was prepped and draped in sterile fashion. Using a 25 gauge 2 inch needle, 1-2 mL of 1% lidocaine was infused subcutaneously to anesthetize the region. Then, a 25 gauge 3.5 inch spinal needle was advanced to the superolateral S1 transforaminal space and advanced into the epidural space under fluoroscopic guidance. Confirmation into the epidural space was obtained with infusion of 1 mL of Omnipaque contrast, which showed epidural flow as well as nerve sheath flow. Then a combination of 2 mL of 1% lidocaine and 10 mg of 10 mg/mL dexamethasone was infused. The patient tolerated the procedure without complications. Pre and post procedure blood pressure were stable. Thepatient was given verbal as well as written [...] addressed. Fluoroscopic guidance used to assist right S1 transforaminal epidural steroid injection. Confirmation of needle placement into the epidural space via the right S1 neural foramen was obtained by injecting approximately 1 mL of Omnipaque contrast. There was no evidence of vascular uptake or subdural flow noted. I personally performed or was present for the procedure above. Robi Vines DO documented in this encounter Plan of Treatment Not on file documented as of this encounter Procedures Procedure Name Priority Date/Time Associated Diagnosis Comments TRANSFORAMINAL EPIDURAL INJECTION LUMBAR SACRAL 1 LEVEL RIGHT Schedule Routine, Read Routine (OP Routine) 03/01/2021 3:13 PM CDT Lumbar radiculopathy documented in this encounter [...] over 2 Minutes, Code/trauma/sedation medication, Starting on Thu03/01/21 at 1452 Given 03/01/2021 2:52 PM CDT 10 mg iohexoL (OMNIPAQUE) 300 mg iodine/mL injection solution Code/trauma/sedation medication, Starting on Thu03/01/21 at 1452 Given 03/01/2021 2:52 PM CDT 0.5 mL lidocaine PF (XYLOCAINE) 10 mg/mL (1 %) preservative free injection Code/trauma/sedation medication, Starting on Thu03/01/21 at 1452, Intra-Procedure (IR), Indications: Administration of Local AnesthesiaIndications:Administrati on of Local Anesthesia Given 03/01/2021 2:52 PM CDT 2 mL documented in this encounter Care Teams Oven Heater Helper Relationship Specialty Start Date End Date Melanie, Jessica Pinto NP [address] [place] [id number] PCP - General 08/23/20 documented as of this encounter
--- OUTSIDE RECORDS SUMMARY | 2024-04-14 18:33 | XMS_ITS | Encounter Summary ---
Author Organization [facility] Healthcare Address [address] [place] [address] Care Team Providers Care Cap Cutter Name Role Phone MelanieJohnJessicalambert Pinto NP Primary Care Provider [phone] Reason for Visit * Reason Comments PT Treatment Encounter Details Date Type Department Care Team (Late st Contact Info) Description 08/29/2020 8:30 AM CDT Therapy [facility] Physical Therapy [address] [place] [id number] Christi Chanel, THREADING MACHINE OPERATOR Radiculopathy, thoracic region (Primary Dx) Social History [...] this encounter Progress Notes * Christi Chanel THREADING MACHINE OPERATOR - 08/29/2020 8:30 AM CDT PT Daily Treatment Note Lilli Santos 1995 Subjective: Pt states she did not sleep very well last night. Pain: 4/10 R low back Objective:Initiated pelvic traction today. Treatment Provided: Prone on elbows Hold 30 sec x 4 Prone press ups x 2 - pt c/o pain shooting to her buttock - activity stopped. Standing against the wall pelvic shift with right hand on wall and left hand self assisting moving hips to the right. 30 sec hold x 4 Pelvic traction int 30/10 x 10 min 60#/20# In prone IFC to right side of [...] POC and advance as tolerated. Start Time: 830 End Time:925 Christi Chanel PTA documented in this encounter Plan of Treatment Not on file documented as of this encounter Visit Diagnoses Diagnosis Radiculopathy, thoracic region- Primary Thoracic or lumbosacral neuritis or radiculitis, unspecified documented in this encounter Care Teams Cap Cutter Relationship Specialty Start Date End Date Jessica Navarro NP [address] [place] [address] PCP - General 08/23/20 documented as of this encounter
--- OUTSIDE RECORDS SUMMARY | 2024-04-14 18:33 | XMS_ITS | Encounter Summary ---
Author Organization [facility] Healthcare Address [address] [place] [address] Care Team Providers Care Applications Development Analyst Name Role Phone Jessica Navarro NP Primary Care Provider [phone] Reason for Visit * Reason Comments PT Treatment Encounter Details Date Type Department Care Team (Late st Contact Info) Description 09/11/2020 4:45 PM CDT Therapy [facility] Physical Therapy [address] [place] [phone] Jaye Zayas, PT Radiculopathy, thoracic region (Primary [...] Progress Notes * Jaye Zayas, PT - 09/11/2020 4:45 PM CDT PT Daily Treatment Note Lilli Santos 1995 Subjective: Pt states her back was really hurting this morning and she could barely get ouf of bed.She states she had to take a mm relaxer. She states the traction did seem to help maybe a little. She states she still has the same numbness down her right leg to her toes at times. Pain: 5.5/10 R low back Objective:Tried pelvic traction again today. Increased the wt some. Noted significant increased mm tension along the right gluteal piriformis area. Treatment Provided: * indicates not performed today Prone over 1 pillow under pelvis Prone [...] to the right. 30 sec hold x 4* Pelvic traction int 30/10 x 10 min 80#/40# In prone IFC to right side of lower back with MHP x 10 min. *?? Treatment Ideas Modalities for mm relaxation Prone passive shift of pelvis to the right Go into prone on elbows and prone press ups as tolerated Progress with extension ex May try mechanical pelvic traction ktape as indicated ?? Assessment: Pt tolerated treatment well. She did report she felt pain relief during the traction. Pt appeared very relaxed with the traction. Pt reported some increased discomfort when she got up from the traction. Goals are ongoing. Plan: Continue to see pt per POC and advance as tolerated. Start Time: 1630 End Time: 1520 Jaye Zayas, PT, DPT documented in this encounter Plan of Treatment Not on file documented as of this encounter Visit Diagnoses Diagnosis Radiculopathy, thoracic region- Primary Thoracic or lumbosacral neuritis or radiculitis, unspecified documented in this encounter Care Teams Applications Development Analyst Relationship Specialty Start Date End Date Melanie, Jessica Pinto NP [address] [place] [address] PCP - General 08/23/20 documented as of this encounter
--- OUTSIDE RECORDS SUMMARY | 2024-04-14 18:33 | XMS_ITS | Encounter Summary ---
Author Organization [facility] Healthcare Address [address] [place] [address] Care Team Providers Care Licensing Analyst Name Role Phone Jessica Navarro NP Primary Care Provider Reason for Visit * Reason Comments PT Treatment Encounter Details Date Type Department Care Team (Late st Contact Info) Description 08/01/2020 10:45 AM CDT Therapy [facility] Physical Therapy [address] [place] [phone] Jaye Zayas, PT Nontraumatic rupture of tendons [...] Progress Notes * Jaye Zayas, PT - 08/01/2020 10:45 AM CDT PT Daily Treatment Note Lilli Santos 1995 Subjective: Pt states her foot is a little more sore today than she was yesterday. She states did not do much yesterday but she is just sore on the medial aspect of the left ankle. Pain: 5/10 L ankle/foot Objective: Pt did have her tennis shoes on today. Treatment Provided: *indicates not performed today ?? Nustep L6 6 min Bilat calf press on leg pres 65# x 20 Single leg calf press 45# x 20 on the left Bilat dome stretch x 3 for 30 sec. In parallel bars: Rocker board fwd/bkwd x 15 and side to side x 15 then 1 min hold each. Blue foam standing feet together x 1 min.* Blue foam SLS x 5 for 15 sec each Blue foam alt marching x 15 each Blue foam Bilat toe raises x 20 Bilat heel walking x 2 passes Bilat toe walking x 2 pases Blue foam balance beam heel to toe walking x 3 passes. Attempted partial squat x 10 Blue theraband resisted DF/PF, EV/INV B x 15 each?? Manually resisted flex and ext of great toe x 15 each Gentle STM/IASTM manual to medial aspect of left foot/ankle, plantar surface of L foot and along incision line. Rock tape on left medial great toe then running plantar and medial foot. One strip also on the dorsum of the toe up dorsum of foot. Theraputty yellow for R great toe flex/ext - HEP* HEP: Sitting rocker board DF/PF x 10 [...] and advance as pt tolerates. Start Time: 1045 End Time:1130 Jaye Zayas, PT, DPT documented in this encounter Plan of Treatment Not on file documented as of this encounter Visit Diagnoses Diagnosis Nontraumatic rupture of tendons of left foot and ankle- Primary documented in this encounter Care Teams Licensing Analyst Relationship Specialty Start Date End Date Melanie, Jessica Pinto NP [address] [place] [address] PCP - General 07/26/19 08/22/20 documented as of this encounter
--- OUTSIDE RECORDS SUMMARY | 2024-04-14 18:33 | XMS_ITS | Encounter Summary ---
Author Organization [facility] Healthcare Address [address] [place] [address] Care Team Providers Care Marking Clerk Name Role Phone Jessica Navarro INVESTMENT SPECIALIST Primary Care Provider + [phone] Jessica Navarro INVESTMENT SPECIALIST Primary Care Provider + [phone] Reason for Visit * Reason Comments Abdominal Pain Vomiting Encounter Details Date Type Department Care Team (Late st Contact Info) Description 08/22/2020 10:44 PM CDT - 08/23/2020 2:07 AM CDT Emergency [facility] Emergency Department [address] [place], [place] [id number] Miriam Alvarez MD [address] [address] Vomiting and diarrhea (Primary Dx); Viral gastroenteritis; Dehydration Discharge Disposition: Discharge to home or self [...] Sign Reading Time Taken Comments Blood Pressure 116/70 08/23/2020 12:44 AM CDT Pulse 99 08/22/2020 10:11 PM CDT Temperature 36.6 ??C (97.9 ??F) 08/22/2020 10:11 PM C DT Respiratory Rate 18 08/22/2020 10:11 PM CDT Oxygen Saturation 98% 08/22/2020 10:11 PM CDT Inhaled Oxygen Concentration - - Weight 89.8 kg (198 lb) 08/22/2020 10:11 PM CDT Height 160 cm (5' 3 ) 08/22/2020 10:11 PM CDT Body Mass Index 35.07 08/22/2020 10:11 PM CDT documented in this encounter Discharge Diagnoses Diagnosis Viral intestinal infection, unspecified - VIRAL INTESTINAL INFECTION, UNSPECIFIED Dehydration - DEHYDRATION Fatty (change of) liver, not elsewhere classified - FATTY (CHANGE OF) LIVER, NOT ELSEWHERE CLASSIFIED Diverticulosis of large intestine without perforation or abscess without bleeding - DIVERTICULOSIS OF LARGE INTESTINE WITHOUT PERFORATION OR ABSCESS WITHOUT BLEEDING Nicotine dependence, cigarettes, uncomplicated - NICOTINE DEPENDENCE, CIGARETTES, UNCOMPLICATED documented in this encounter Discharge Instructions * Discharge Instructions* Miriam Alvarez MD - 08/23/2020 1:44 AM CDT Stay hydrated with frequent fluids Your labs are overall unremarkable except for showing a mild elevation of your liver labs which appears to be chronic considering her previous lab results on record. For now avoid Tylenol Follow-up with a primary care doctor for repeat hepatic function test in the next 4 weeks Take the nausea medication when needed as directed. New nausea medication was sent electronically to your pharmacy * Attachments The following attachments cannot be sent through Care Everywhere. * Gastroenteritis, Viral (Adult) (Salvadorean) documented in this encounter Medications at Time [...] a day as needed for itching 1 ondansetron ODT (ZOFRAN-ODT) 4 mg disintegrating tablet [...] nausea or vomiting. 15 tablet 08/23/2020 2 ondansetron ODT (ZOFRAN-ODT) 4 mg disintegrating tablet Dissolve 1 tablet oral every 4 hours as needed for nausea or vomiting. 15 tablet 08/23/2020 1 documented in this encounter Discharge Disposition Disposition Code Departure Means Destination Discharge to home or self care documented in this encounter ED Notes * Miriam Alvarez MD - 08/22/2020 11:45 PM CDT HPI Chief Complaint Patient presents with ??? Abdominal Pain ??? Vomiting 25 yo F history of GERD, asthma and anxiety presents to emergency department complaining of 1 day of right-sided abdominal pain along with multiple episodes of nausea and vomiting as well as diarrhea. Vomiting is nonbloody non bilious, diarrhea is nonbloody. She denies any fevers, chills, weakness,fatigue. She reports she has had a cough for 2 months that is nonproductive. No COVID exposures. Nourinary complaints Patient History: Patient Active Problem List Diagnosis Date Noted ??? Acquired deformity of left toe 03/29/2020 Past Medical History: Diagnosis Date ??? Anxiety ??? Asthma ??? GERD (gastroesophageal reflux disease) Past Surgical History: Procedure Laterality Date ??? BREAST SURGERY breast reduction ??? THYROID SURGERY History reviewed. No pertinent family history. Social History Tobacco Use ??? Smoking status: Current Every Day Smoker Packs/day: 1.00 Types: Cigarettes Substance Use Topics ??? Alcohol use: Never ??? Drug use: Never Social History Social History Narrative ??? Not on file Review of Systems Review of Systems Constitutional: Negative for fatigue and fever. Gastrointestinal: Positive for abdominal pain, diarrhea, nausea and vomiting. Negative for blood instool. Genitourinary: Negative. Musculoskeletal: Negative for back pain. Neurological: Positive for weakness. Negative for dizziness. All other systems reviewed and are negative. Physical Exam ED Triage Vitals [08/22/20 2211] Temp Pulse Resp BP SpO2 36.6 ??C (97.9 ??F) 99 18 146/87 98 % Temp src Heart Rate Source Patient Position BP Location FiO2 (%) Temporal -- -- -- -- Physical Exam HENT: Head: Atraumatic. Mouth/Throat: Comments: Dry mucous membrane Cardiovascular: Rate and Rhythm: Normal rate. Heart sounds: Normal heart sounds. No murmur. Pulmonary: Effort: Pulmonary effort is normal. Breath sounds: Normal breath sounds. Abdominal: General: Abdomen is flat. Bowel sounds are normal. There is no distension. Palpations: Abdomen is soft. Tenderness: There is abdominal tenderness in the right lower quadrant. There is no right CVA tenderness or rebound. Positive signs include McBurney's sign. Negative signs include Keller's sign and Rovsing's sign. Skin: General: Skin is warm and dry. MDM Medical Decision Making Differential Diagnosis or Management Options: 25-year-old female who was from a complaining of nausea vomiting and diarrhea for the last day. Lab show chronic transaminitis. Of abdomen tender in the right lower quadrant. Patient has not had any mammograms from a status post IV fluids. CT negative for acute appendicitis or cholecystitis. Patient will tolerate oral fluids. Patient discharged to follow-up with primary care doctor ED Course as of Aug 23 0167 Time: 08/22 2342 Value: Hepatic function panel(!): Bilirubin, total 0.8 Bilirubin, direct <0.2 Protein, pl 7.7 Albumin 4.4 Alk phos 84 ALT 142(!) AST 115(!) Comment: (Reviewed) By: Miriam Alvarez MD Final diagnoses: Vomiting and diarrhea Viral gastroenteritis Dehydration Disposition: Discharged Condition: Stable Miriam Alvarez MD 08/23/20 0550 * Maryanne Smith RN - 08/22/2020 10:09 PM CDT Patient arrives to ER for complaint of RUQ pain that began when she woke up this morning. Patient states pain is associated with N/V/D. States that she is unable to keep food or liquids down. Denies abdominal surgeries. Denies exposures to anyone ill. documented in this encounter Plan of Treatment Not on file documented as of this encounter Procedures Procedure Name Priority Date/Time Associated Diagnosis Comments CT ABDOMEN PELVIS W CONTRAST ED 08/23/2020 12:40 AM CDT POCT HCG, URINE Routine 08/22/2020 10:48 PM CDT URINALYSIS AND REFLEX TO MICROSCOPIC AND CULTURE STAT 08/22/2020 10:46 PM CDT URINALYSIS, MICROSCOPIC ONLY STAT 08/22/2020 10:46 PM CDT EGFR STAT 08/22/2020 10:18 PM CDT DIFFERENTIAL AUTO STAT 08/22/2020 10: 18 PM CDT CBC WITH AUTO DIFFERENTIAL STAT 08/22/2020 10:18 PM CDT LIPASE STAT 08/22/2020 10:18 PM CDT HEPATIC FUNCTION PANEL STAT 08/22/2020 10:18 PM CDT BASIC METABOLIC PANEL STAT 08/22/2020 10:18 PM CDT documented in this encounter Results * CT Abdomen Pelvis W Contrast (08/23/2020 12:40 AM CDT) Anatomical Region Laterality Modality Body N/A Computed Tomogra phy 08/23/2020 12:4 4 AM CDT Narrative 08/23/2020 12:47 AM CDT EXAM DESCRIPTION: ?? CT ABDOMEN PELVIS W CONTRAST REASON FOR STUDY: ?? Patient arrives to ER for complaint of right upper quadrant pain that began when she woke up this morning. Patient states pain is associated with nausea, vomiting and diarrhea. ??States that she is unable to keep food or liquids down. Denies abdominal surgeries. Denies exposures to anyone ill. Duration: Today TECHNIQUE: ??CT scan of the abdomen and pelvis performed with intravenous and ?? without oral contrast using helical scanning technique with dynamic intravenous contrast injection. Reconstructed coronal and sagittal MPR images reviewed. All images stored on PACS. ??Automated exposure control was used as a dose optimization technique for this examination. CONTRAST TYPE/DOSE: ?? 100 mL Optiray 320 injected via ??left antecubital fossa COMPARISON: ?? None available. FINDINGS: LOWER CHEST: ??No significant pulmonary abnormalities. No effusion. LIVER: ??Normal size with moderate diffuse steatosis. ??No identified cystic or solid masses. GALLBLADDER: ??No stones identified. No wall thickening or inflammatory changes. BILE DUCTS: ??No intrahepatic or extrahepatic ductal dilatation. SPLEEN: ??Normal size. ??No focal lesions. PANCREAS: ??No identified cystic or solid masses. No significant calcifications. No adjacent inflammation or peripancreatic fluid collections. Pancreatic duct not dilated. ADRENALS: ??Normal. KIDNEYS/URINARY TRACT: ??No identified significant cystic or solid masses. No visualized stones. No hydronephrosis or hydroureter. Symmetric enhancement. ?? Urinary bladder is unremarkable. GI: ??No dilated bowel loops. No obvious wall thickening. ??Normal appendix. ?? Mild sigmoid diverticulosis without acute diverticulitis. PERITONEUM: ??No ascites or free air. RETROPERITONEUM: ??No mass or adenopathy. ??Multiple subcentimeter short axis retroperitoneal lymph nodes are none enlarged, either physiologic or mildly reactive. REPRODUCTIVE: ??No significant abnormality. VASCULATURE: ??No abdominal aortic aneurysm. MUSCULOSKELETAL: ??No significant abnormality. OTHER: ??No other abnormality. IMPRESSION: ??1. ??No acute finding. 2. ??Moderate hepatic steatosis and colonic diverticulosis. THIS IS AN ELECTRONICALLY VERIFIED FINAL REPORT 08/23/2020 12:47 AM - Electronically signed by Maurilio Gutierrez ML: ML D: ??08/23/2020 12:47 AM T: ??08/23/2020 12:47 AM Report ID: [id number] Reading Location: ??[id number] Procedure Note Maurilio Gutierrez MD - 08/23/2020 EXAM DESCRIPTION: CT ABDOMEN PELVIS W CONTRAST REASON FOR STUDY: Patient arrives to ER for complaint of right upper quadrant pain that began when she woke up this morning. Patient statespain is associated with nausea, vomiting and diarrhea. States that she is unableto keep food or liquids down. Denies abdominal surgeries. Denies exposures to anyone ill. Duration: Today TECHNIQUE: CT scan of the abdomen and pelvis performed with intravenousand without oral contrast using helical scanning technique with dynamic intravenous contrast injection. Reconstructed coronal and sagittal MPRimages reviewed. All images stored on PACS. Automated exposure control was usedas a dose optimization technique for this examination. CONTRAST TYPE/DOSE: 100 mL Optiray 320 injected via left antecubitalfossa COMPARISON: None available. FINDINGS: LOWER CHEST: No significant pulmonary abnormalities. No effusion. LIVER: Normal size with moderate diffuse steatosis. No identified cysticor solid masses. GALLBLADDER: No stones identified. No wall thickening or inflammatorychanges. BILE DUCTS: No intrahepatic or extrahepatic ductal dilatation. SPLEEN: Normal size. No focal lesions. PANCREAS: No identified cystic or solid masses. No significant calcifications. No adjacent inflammation or peripancreatic fluidcollections. Pancreatic duct not dilated. ADRENALS: Normal. KIDNEYS/URINARY TRACT: No identified significant cystic or solid masses.No visualized stones. No hydronephrosis or hydroureter. Symmetricenhancement. Urinary bladder is unremarkable. GI: No dilated bowel loops. No obvious wall thickening. Normal appendix. Mild sigmoid diverticulosis without acute diverticulitis. PERITONEUM: No ascites or free air. RETROPERITONEUM: No mass or adenopathy. Multiple subcentimeter shortaxis retroperitoneal lymph nodes are none enlarged, either physiologic ormildly reactive. REPRODUCTIVE: No significant abnormality. VASCULATURE: No abdominal aortic aneurysm. MUSCULOSKELETAL: No significant abnormality. OTHER: No other abnormality. IMPRESSION: 1. No acute finding. 2. Moderate hepatic steatosis and colonic diverticulosis. THIS IS AN ELECTRONICALLY VERIFIED FINAL REPORT 08/23/2020 12:47 AM - Electronically signed by Maurilio Gutierrez ML: ML Report ID: [id number] Reading Location: [place] [address] Miriam Alvarez MD IMG CT PROCEDURES Final R esult * POCT hCG, urine (08/22/2020 10:48 PM CDT) HCG, ur, POC Negative Lot Number [id number] QC Backgroud Clear Acceptable QC Control Line Acceptable Urine 08/22/2020 10:4 8 PM CDT Miriam Alvarez MD POINT OF CARE TEST ORDERA BLES Final Result * (ABNORMAL) Urinalysis, microscopic only (08/22/2020 10:46 PM CDT) WBC, ur 0-5 0 - 5 /HPF [facility] ([place]) RBC, ur 0-2 0 - 2 /HPF [facility] ([place]) Epithelial cells, squamous, ur 11-20(A) 0 - 5 /HPF [facility] ([place]) Bacteria, ur Trace(A) [facility] ([place]) Mucous, ur Present(A) [facility] ([place]) Culture Reflex Comment Reflex conditions for urine culture (WBC >10) not met. [facility] ([place]) Urine 08/22/2020 10:4 6 PM CDT 08/22/2020 10:51 PM CDT us Miriam Alvarez MD LAB URINE ORDERABLES Jesusita mike Result [facility] ([place]) [address] [facility] Department [place] [address] * (ABNORMAL) Urinalysis reflex to microscopic and culture Urine (08/22/2020 10:46 PM CDT) Color, ur Yellow Yellow [facility] ([place]) Clarity, ur Clear Clear [facility] ([place]) Specific gravity, ur >1.030(H) 1.010 - 1.025 [facility] ([place]) pH, urine 6.0 [facility] ([place]) Protein, ur ql 1+(A) Negative [facility] ([place]) Glucose, ur ql Trace(A) Negative [facility] ([place]) Ketones, ur Trace Negative [facility] ([place]) Bilirubin, ur 1+(A) Negative [facility] ([place]) Blood, ur Negative Negative [facility] ([place]) Urobilinogen, ur 2.0(A) <2.0 mg/dL [facility] ([place]) Nitrite, ur Negative Negative [facility] ([place]) Leukocyte esterase, ur Trace(A) Negative [facility] ([place]) UA reflex comment Reflex to microscopic UA will be performed. [facility] ([place]) Urine 08/22/2020 10:4 6 PM CDT 08/22/2020 10:51 PM CDT Narrative [facility] ([place]) - 08/22/2020 10:56 PM CDT ?? Urine pH is affected by diet, medications, systemic acid-base disturbances, and renal tubular function. ??pH may affect urinary stone formation. ??For example, urine pH below 6.0 may help reduce the tendency for calcium phosphate stones and pH greater than 6.0 may reduce the tendency for uric acid stone formation. Source: [facility]. Last revised 05-07-2017 us Miriam Alvarez MD LAB MICROBIOLOGY - GENERA L ORDERABLES Final Result Performing Organization Address City/[facility]/ZIP Co de Phone Number [facility] ([place]) [address] [facility] [place] [address] * eGFR (08/22/2020 10:18 PM CDT) eGFR 113 mL/min/1.7 3 m2 [facility] ([place]) Comment: Interpretive Data Reference Interval Normal ?>/= [...] was last reviewed 2020 Blood specimen (specimen) 08/22/2020 10:18 PM CDT 08/22/2020 10:20 PM CDT us Miriam Alvarez MD LAB BLOOD ORDERABLES Jesusita l Result Performing Organization Address City/[facility]/ZIP Co de Phone Number [facility] ([place]) [address] [facility] Department [place] [employer] [place] [address] * Differential, auto (08/22/2020 10:18 PM CDT) Neutrophil abs 6.4 1.7 - 6.5 K/cumm [facility] ([place]) Imm gran abs 0.0 0.0 - 0.1 K/cumm [facility] ([place]) Lymphocyte abs 2.5 0.8 - 3.3 K/cumm [facility] ([place]) Monocyte abs 0.5 0.2 - 0.8 K/cumm [facility] ([place]) Eosinophil abs 0.5 0.0 - 0.5 K/cumm [facility] ([place]) Basophil abs 0.0 0.0 - 0.1 K/cumm [facility] ([place]) Neutrophil pct 64.4 % [facility] ([place]) Comment: Interpretive [...] was last revised on 2017. Lymphocyte pct 25.4 % [facility] ([place]) Comment: Interpretive Data Percent cell count reference ranges are not reported, since discordance with absolute values may lead to misinterpretation of CBC data. Current Interpretive Data was last revised on 2017. Monocyte pct 5.0 % [facility] ([place]) Comment: Interpretive Data Percent cell count reference ranges are not reported, since discordance with absolute values may lead to misinterpretation of CBC data. Current Interpretive Data was last revised on 2017. Eosinophil pct 4.6 % [facility] ([place]) Comment: Interpretive [...] last revised on 2017. Blood specimen (specimen) 08/22/2020 10:18 PM CDT 08/22/2020 10:20 PM CDT Miriam Alvarez MD LAB BLOOD ORDERABLES Jesusita l Result Performing Organization Address City/[facility]/ZIP Co de Phone Number [facility] ([place]) [address] [place] [address] * Lipase (08/22/2020 10:18 PM CDT) Pathologist [facility] Lipase 18 10 - 99 Units/L [facility] ([place]) Blood specimen (specimen) (Blood, Venous) 08/22/2020 10:18 PM CDT 08/22/2020 10:20 PM CDT Miriam Alvarez MD LAB BLOOD ORDERABLES Jesusita l Result Performing Organization Address [facility] Co de Phone Number [facility] ([place]) [address] [place] [address] [place] [address] * (ABNORMAL) Hepatic function panel (08/22/2020 10:18 PM CDT) Bilirubin, total 0.8 0.1 - 1.2 mg/dL [facility] ([place]) Bilirubin, direct <0.2 0.1 - 0.3 mg/dL [facility] ([place]) Protein, pl 7.7 6.5 - 8.5 g/dL [facility] ([place]) Albumin 4.4 3.5 - 5.0 g/dL [facility] ([place]) Alk phos 84 40 - 130 Units/L [facility] ([place]) ALT 142(H) 7 - 45 Units/L [facility] ([place]) AST 115(H) 10 - 45 Units/L [facility] ([place]) Blood specimen (specimen) (Blood, Venous) 08/22/2020 10:18 PM CDT 08/22/2020 10:20 PM CDT Miriam Alvarez MD LAB BLOOD ORDERABLES Jesusita l Result [facility] ([place]) 1 [facility] [place] [address] * Basic metabolic panel (08/22/2020 10:18 PM CDT) [facility] Sodium 139 135 - 145 mmol/L [facility] ([place]) Potassium, pl 3.6 3.3 - 4.9 mmol/L [facility] ([place]) Chloride 101 97 - 110 mmol/L [facility] ([place]) CO2 25 22 - 32 mmol/L [facility] ([place]) Anion gap 12 2 - 15 mmol/L [facility] ([place]) BUN 11 8 - 25 mg/dL [facility] ([place]) Creatinine 0.73 0.60 - 1.10 mg/dL [facility] ([place]) Glucose 192 70 - 199 mg/dL [facility] ([place]) Comment: Interpretive Data Fasting glucose [...] interpretive data was last revised 2017. Calcium 9.5 8.5 - 10.3 mg/dL [facility] ([place]) Blood specimen (specimen) 08/22/2020 10:18 PM CDT 08/22/2020 10:20 PM CDT Miriam Alvarez MD LAB BLOOD ORDERABLES Jesusita l Result [facility] ([place]) [address] [facility] Department [place] [address] * CBC with auto differential (08/22/2020 10:18 PM CDT) WBC 9.9 3.8 - 9.9 K/cumm [facility] ([place]) Hgb 14.9 11.9 - 15.5 g/dL [facility] ([place]) Hct 42.8 35.6 - 45.5 % [facility] ([place]) Plt 268 150 - 400 K/cumm [facility] ([place]) MPV 11.0 9.1 - 12.3 fL [facility] ([place]) RBC 4.83 3.90 - 5.20 M/cumm [facility] ([place]) MCV 88.6 81.3 - 96.4 fL [facility] ([place]) MCH 30.8 27.1 - 33.3 pg [facility] ([place]) MCHC 34.8 32.3 - 35.7 g/dL [facility] ([place]) RDW CV 11.6 11.1 - 14.9 % [facility] ([place]) RDW SD 36.7 35.7 - 48.1 fL [facility] ([place]) NRBC abs 0.00 0.00 - 0.01 K/cumm [facility] ([place]) Blood specimen (specimen) (Blood, Venous) 08/22/2020 10:18 PM CDT 08/22/2020 10:20 PM CDT us Miriam Alvarez MD LAB BLOOD ORDERABLES Jesusita mckeon Result [facility] ([place]) [address] [facility] Department [place] [address] documented in this encounter Visit Diagnoses Diagnosis Vomiting and diarrhea- Primary Viral gastroenteritis Intestinal infection due to other organism, NEC Dehydration documented in this encounter Administered Medications Inactive Administered Medications - up to 3 most recent administrations Medication Order MAR Action Action Date Dose Rate Site ioversoL (OPTIRAY 320) injection 100 mL 100 mL, intravenous, Once in imaging, contrast, Starting on Kelly 08/23/20 at 0023, For 1 dose Given 08/23/2020 12:27 AM CDT 100 mL morphine injection 2 mg 2 mg, intravenous, Administer over 4 Minutes, Once, On Thu08/22/20 at 2345, For 1 dose, Indications: PainIndications:Pain Given 08/22/2020 11:55 PM CDT 2 mg ondansetron (ZOFRAN) injection 4 mg 4 mg, intravenous, Administer over 2 Minutes, Once, On Thu08/22/20 at 2344, For 1 dose Given 08/22/2020 11:54 PM CDT 4 mg sodium chloride 0.9% bolus 1,000 mL 1,000 mL, intravenous, at 1,000 mL/hr, Administer over 1 Hours, Once, On Thu08/22/20 at 2344, For 1 dose New Bag 08/22/2020 11:54 PM CDT 1,000 mL 1000 mL/hr documented in this encounter Discontinued Medications Medication Sig Discontinue Reason Start Date End Da te ondansetron ODT (ZOFRAN-ODT) 4 mg disintegrating tablet Dissolve 1 tablet oral every 4 hours as needed for nausea or vomiting. Reorder 08/23/2020 08/23/2020 documented as of this encounter Active and Recently Administered Medications Times are shown in CDT. Scheduled Medication Order 08/21/2020 08/22/2020 08/23/2020 morphine injection 2 mg (COMPLETED) 2 mg, intravenous, Administer over 4 Minutes, Once, On Thu08/22/20 at 2345, For 1 dose, Indications: Pain 235 (Given - Provider: Van Vega RN) ondansetron (ZOFRAN) injection 4 mg (COMPLETED) 4 mg, intravenous, Administer over 2 Minutes, Once, On Thu08/22/20 at 2344, For 1 dose 2354 (Given - Provider: Van Vega RN) sodium chloride 0.9% bolus 1,000 mL (COMPLETED) 1,000 mL, intravenous, at 1,000 mL/hr, Administer over 1 Hours, Once, On Thu08/22/20 at 2344, For 1 dose 2354 (New Bag - Provider: Van Vega RN) 0127 (Stopped - Provider: Carla Hurtado RN) PRN Medication Order 08/21/2020 08/22/2020 08/23/2020 ioversoL (OPTIRAY 320) injection 100 mL (COMPLETED) 100 mL, intravenous, Once in imaging, contrast, Starting on Kelly 08/23/20 at 0023, For 1 dose 0027 (Given - Provid er: Fern Rodriges, RT - Comment: [id number], 03/2022) documented in this encounter Orders Nursing Count Last Ordered Date First Orde red Date NURSING COMMUNICATION 1 08/23/2020 MISCELLANEOUS NURSING CARE ORDER (SPECIFY) 1 08/22/2020 documented in this encounter Care Teams Marking Clerk Relationship Specialty Start Date End Date Jessica Navarro NP [address] [place] [address] PCP - General 07/26/19 08/22/20 Jessica Navarro NP [address] [place] [address] PCP - General 08/23/20 documented as of this encounter
--- OUTSIDE RECORDS SUMMARY | 2024-04-14 18:33 | XMS_ITS | Encounter Summary ---
Author Organization [facility] Address [address] [facility] [address] [place] [address] Phone Care Team Providers Care Electrical And Instrument Engineer Name Role Phone Jessica Navarro NP Primary Care Provider Encounter Details Date Type Department Care Team (Late st Contact Info) Description 03/26/2021 Telephone [facility] Orthopaedic Surgery [address] [facility] 1st Floor [address] [place] [address] Sheba Osorio RMA Social History Tobacco Use [...] Telephone Encounter - Sheba Osorio RMA - 03/26/2021 1:33 PM CST Left message for Lilli to call pain and report pain intensity. Pain intensity ??? / 10 Injection is right L5-S1 TESI Will need to fax this information to [phone] ND WORKER documented in this encounter Plan of Treatment Not on file documented as of this encounter Visit Diagnoses Not on filedocumented in this encounter Care Teams Electrical And Instrument Engineer Relationship Specialty Start Date End Date Navarro, Jessica Pinto NP [address] [place] [address] PCP - General 08/23/20 documented as of this encounter
--- OUTSIDE RECORDS SUMMARY | 2024-04-14 18:33 | XMS_ITS | Encounter Summary ---
Author Organization [facility] Address [address] [facility] [address] [place] [address] Phone Care Team Providers Care Tearer Press Clipping Name Role Phone Jessica Navarro NP Primary Care Provider Encounter Details Date Type Department Care Team (Late st Contact Info) Description 02/15/2021 Telephone [facility] Orthopaedic Surgery [address] [place] [address] Renard Naqvi MD [address] [facility] [address] [place] [address] Social History Tobacco Use Types Packs/Day Years [...] Miscellaneous Notes * Telephone Encounter - Delaney Nelson, MAKING MACHINE OPERATOR - 02/15/2021 12:[address] Naqvi spoke with the patient on 02/14/21 regarding her MRI that was completed on 02/11/21. Dr. Naqvi is recommending referring to the physiatry department to be evaluated for her spine and possible injections. I spoke with the patient and she has been scheduled for an appointment with Mia Wlison NP. documented in this encounter Plan of Treatment Not on file documented as of this encounter Visit Diagnoses Not on filedocumented in this encounter Care Teams Tearer Press Clipping Relationship Specialty Start Date End Date Navarro, Jessica Pinto NP [address] [place] [address] PCP - General 08/23/20 documented as of this encounter
--- OUTSIDE RECORDS SUMMARY | 2024-04-14 18:33 | XMS_ITS | Encounter Summary ---
Author Organization [facility] Healthcare Address [address] [place] [address] Care Team Providers Care Club Concierge Name Role Phone Jessica Navarro NP Primary Care Provider Reason for Referral * MRI/CAT/PET Scan (Routine) - Closed Specialty Diagnoses / Procedures Referred By Contac t Referred To Contact Radiology Diagnoses Lumbar radiculopathy Procedures MRI Lumbar Spine WO Contrast Renard Naqvi MD Phone: tel: fax: [address] [address] Referral ID Status Reason Start Date Expiration Date Visits Re quested Visits Authorized [id number] Closed 02/05/2021 05/06/2021 1 1 Reason for Visit * MRI/CAT/PET Scan (Routine) - Closed Specialty Diagnoses / Procedures Referred By Contac t Referred To Contact Radiology Diagnoses Lumbar radiculopathy Procedures MRI Lumbar Spine WO Contrast Renard Naqvi MD Phone: tel: fax: [address] [address] Referral ID Status Reason Start Date Expiration Date Visits Re quested Visits Authorized [id number] Closed 02/05/2021 05/06/2021 1 1 Encounter Details Date Type Department Care Team (Late st Contact Info) Description 02/11/2021 11:19 AM CDT - 02/11/2021 11:59 PM CDT Hospital Encounter [facility] [address] [place] [address] Renard Naqvi MD [address] [place] [address] Lumbar radiculopathy Discharge Disposition: Discharge to home or self [...] 6 (six) hours as needed 01/21/2021 4 valACYclovir (VALTREX) 500 mg tablet TAKE [...] CONTRAST Schedule Routine, Read Routine (OP Routine) 02/11/2021 12:13 PM CDT Lumbar radiculopathy documented in this encounter Results * MRI [...] by: Alex Jose M.D. Renard Naqvi MD IMG MRI PROCEDURES Final Result documented in this encounter Visit Diagnoses Diagnosis Lumbar radiculopathy Thoracic or lumbosacral neuritis or radiculitis, unspecified documented in this encounter Care Teams Club Concierge Relationship Specialty Start Date End Date Navarro, Jessica Pinto NP [address] [place] [address] PCP - General 08/23/20 documented as of this encounter
--- OUTSIDE RECORDS SUMMARY | 2024-04-14 18:33 | XMS_ITS | Encounter Summary ---
Author Organization [facility] Address [address] [facility] [address] [place] [address] Phone Care Team Providers Care Slabber Name Role Phone Jessica Navarro NP Primary Care Provider Reason for Visit * Reason Onset Date Comments Injections 04/08/2021 pain diary Encounter Details Date Type Department Care Team (Late st Contact Info) Description 04/23/2021 Telephone [facility] Orthopaedic Surgery [address] [place] [address] Mia Wilson NP [address] [facility] [address] [place], [place] [id number] Injections (pain diary ) Social History Tobacco [...] encounter Miscellaneous Notes * Telephone Encounter - TonjapandaRuchiyl ACE - 04/23/2021 10:35 AM CST Sent message to Lilli via Mibio, she will continue her HEP & will follow up as needed. [facility] * Telephone Encounter - Mia Wilson NP - 04/23/2021 9:19 AM CST Good results. Continue HEP. [facility] * Telephone Encounter - Aneta Krueger - 04/23/2021 9:02 AM CST THERAPEUTIC INJECTION DOS: 04/08/21 INJECTION TYPE: Lumbar Transforaminal Epidural Steroid Injection Rate each of the followin% 20% 50% 80% 100% Immediately? 100 6 hours after? 100 24 hours after?100 4 days after? 100 1 week after? 80 10 days after? 80 2 weeks after?80 How would you rate your overall improvement since your injection? good Are you currently in Physical Therapy? no How many sessions have you attended? 0 Are you performing a monitored home exercise program? yes Has your injection improved your ability to perform activities of daily living with less pain? A little bit Are you happy with your improvement level? yes [facility] documented in this encounter Plan of Treatment Not on file documented as of this encounter Visit Diagnoses Not on filedocumented in this encounter Care Teams Slabber Relationship Specialty Start Date End Date Jessica Navarro NP [address] [place] [address] PCP - General 08/23/20 documented as of this encounter
--- OUTSIDE RECORDS SUMMARY | 2024-04-14 18:33 | XMS_ITS | Encounter Summary ---
Author Organization [facility] Address [address] [address] Care Team Providers Care Concrete Grinder Operator Name Role Phone Jessica Navarro NP Primary Care Provider Reason for Visit * Reason Comments Follow-up Encounter Details Date Type Department Care Team (Late st Contact Info) Description 09/10/2020 11:10 AM CDT Office Visit [facility] [address] [place] [address] Kishan Broussard MD [address] [address] Nontraumatic rupture of tendons of left foot [...] - - Temperature 36.2 ??C (97.1 ??F) 09/10/2020 10:56 AM C DT Respiratory Rate - - Oxygen Saturation - - Inhaled Oxygen Concentration - - Weight 89.8 kg (198 lb) 09/10/2020 10:56 AM CDT Height 160 cm (5' 3 ) 09/10/2020 10:56 AM CDT Body Mass Index 35.07 09/10/2020 10:56 AM CDT documented in this encounter Ordered Prescriptions Prescription Sig Dispense Quantity Refills Last Filled Start Date End Date methylPREDNISolone (Medrol, Ron,) 4 mg Dosepack Take as directed on package 1 packet 09/10/2020 documented in this encounter Progress Notes * Kishan Broussard MD - 09/10/2020 11:10 AM CDT Patient returns today with ongoing smoldering symptoms of pain with activity in the left foot. She is using Tylenol and OTC NSAIDs sparingly. The patient states that her pain comes on after she is onher feet for up to 20 or 30 minutes. Examination demonstrates no specific deformity but there is nonspecific tenderness in the seble-incisional area. There is no triggering of the great toe. Diagnosis-ongoing left/ankle pain following trigger toe release/tendon repair. Plan-try another Medrol Dosepak. Physical therapy twice weekly over the next 3 weeks. Return to this office in 3 weeks. documented in this encounter Miscellaneous Notes * Addendum Note - Whitney Braden MA - 09/10/2020 11:10 AM CDTAddended by: WHITNEY BRADEN on: 09/10/2020 02:26 PM Modules accepted: Orders documented in this encounter Plan of Treatment Not on file documented as of this encounter Visit Diagnoses Diagnosis Nontraumatic rupture of tendons of left foot and ankle- Primary documented in this encounter Care Teams Concrete Grinder Operator Relationship Specialty Start Date End Date Melanie, Jessica Pinto NP [address] [place] [address] PCP - General 08/23/20 documented as of this encounter
--- OUTSIDE RECORDS SUMMARY | 2024-04-14 18:33 | XMS_ITS | Encounter Summary ---
Author Organization [facility] Healthcare Address [address] [place] [address] Care Team Providers Care Director Distribution Name Role Phone Jessica Navarro NP Primary Care Provider [phone] Reason for Visit * Reason Comments PT Initial Eval * Consultation (Routine) - Closed Specialty Diagnoses / Procedures Referred By Jonas reeves Referred To Contact Physical Therapy Diagnoses Radiculopathy, thoracic region Jessica Navarro NP [address] [place] [address] Phone: tel: fax: [address] [address] Referral ID Status Reason Start Date Expiration Date V isits Requested Visits Authorized [id number] Closed Specialty Services Required 08/14/2020 09/13/2021 24 24 Encounter Details Date Type Department Care Team (Late st Contact Info) Description 08/28/2020 2:45 PM CDT Therapy [facility] Physical Therapy [address] [place] [address] Jaye Zayas, PT Radiculopathy, thoracic region (Primary [...] Progress Notes * Jaye Zayas, PT - 08/28/2020 2:45 PM CDT Physical Therapy Evaluation Lumbar Spine *Please sign and fax back to [phone]* Lilli Santos 1995 25 y.o. female Jessica Navarro NP [address] [place] [address] ICD-9-CM ICD-10-CM 1. Radiculopathy, thoracic region 724.4 M54.14 Ambulatory referral order to Physical Therapy - PT Initial Eval Subjective History of current problem: Pt presents today for mid and low back pain. She states it started approximately at age 21. She states it started as sciatica on the right side. She states it started gradually. She states the pain goes into the right rear end and down the right leg to her toes. She states she also has some tingling and numbness all the way down the leg. She states the pain is in the high lumbar area of her back in the middle and more on the right side. She state she will bend over to pick things up and it just locks up on her. She states sometimes she has difficulty getting in /out of the car. Pt states she is still having pain in the left foot from her surgery a few months ago and that is affecting her gait right now also. OSWESTRY: 64% disability Mechanism of injury: No particular injury Sensation: N/T, bowel and bladder changes: Pain: Pain location: Current location: 4/5/10 Worst pain: 6-7/10 Best pain: 3/10 Aggrivating factors: sitting, standing, bending, lifting over 5#, laying flat on back. Alleviating factors: laying left side, stretching, heat, back rubs Imaging:x-rays of thoracic and lumbar spine indicated degenrative arthritis. Function: Prior level of function: Indep Current level of function: Indep Social Hx:Pt lives with her boyfriend and children, 4 stairs in the home. Occupation: not working Patient goals:Decrease pain Objective Posture: In standing pt's hips are shifted slighty to the left and her shoulder are shifted slightly to the right. The iliac crests are level. ROM: AROM trunk: Flexion: Fingers to lower 1/3 of granados and increased right sided pain. Extension: Decreased 30% and painful R SB: Decreased 20% and painful L SB: SNL, no pain R Rot: Decreased 40% and painful L Rot: WNL and no pain Lower Extremity Strength: Bilat LE strength is 5/5 except for right hip abd which is 4-/5 and painful in the right lower back. Right hip extension is 4/5. Core Strength: 3+/5 Lower Extremity Flexibility: Hamstring length -10 deg on the left at 90/90 -40 deg on the right (due to post glut/leg pain) Palpation: Pt is tender over the right lumbar paraspinals with increased mm tension noted. With direct pressure over the sacrum and lumbar spine the pt does report increased pain. Special Tests: Long [place] distraction (no change) SIJ: SLS on the left, right hip drop SLR: (+) on the right at 45 deg for gluteal pain and some radiating pain down the posterior right leg. Treatment provided: In prone IFC to right side of lower back, 2 electrodes chronic setting with MHP x 10 min. Pt instructed in prone on elbows x 2 (gave as HEP) Prone press ups x 2(gave as HEP) Standing against the wall pelvic shift with right hand on wall and left hand self assisting moving hips to the right. (gave as HEP) Treatment Ideas Modalities for mm relaxation Prone passive shift of pelvis to the right Go into prone on elbows and prone press ups as tolerated Progress with extension ex May try mechanical pelvic traction ktape as indicated Assessment/Plan: Assessment Impairments: abnormal or restricted ROM, flexibility, impaired physical strength, muscle length, pain with function, lacks appropriate home exercise program, impaired posture Other impairment: left pelvic shift Prognosis: fair Prognosis details: due to chronicity of the condition Goals STG 1:: Pt able to demonstrate indep with HEP in 3 weeks. STG 2:: Pt able to decrease left pelvic shift and demonstrate normal pelvic alignment in standing in 3 weeks. STG 3:: Pt able to report a decrease in subjective level of worst pain to 4-5/10 in 3 weeks. STG 4:: Pt able to perform prone press up with full elbow extension in 3 weeks. LTG 1:: Pt able to demonstrate improved strength of the right hip abductors and extensors by DC. LTG 2:: PT able to demonstrate improved AROM of the trunk to WNL and pain free by DC. LTG 3:: Pt able to report a decrease in subjective level of worst pain to 2-3/10 or less by DC. LTG 4:: Pt able to report improved score on the OSWESTRY to 20-40% disability or less by DC. Plan Start time: 1450 End time: 154 Therapy options: will be seen for skilled therapy services Planned modality interventions: interferential current, ultrasound, thermotherapy (hydrocollator packs) Other planned modality interventions: others as indicated PRN Planned therapy interventions: strengthening, postural training, functional ROM exercises, abdominal trunk stabilization, Kinesiotaping, stretching, therapeutic activities, soft tissue mobilization, manual therapy, home exercise program, spinal/joint mobilization Discussed with: patient Plan details: Plan to see pt 1-2x a week for up to 24 visits. Sindhu Zayas, PT , DPT, MHS documented in this encounter Plan of Treatment Not on file documented as of this encounter Visit Diagnoses Diagnosis Radiculopathy, thoracic region- Primary Thoracic or lumbosacral neuritis or radiculitis, unspecified documented in this encounter Orders Outpatient Referral Count Last Ordered Date Fir st Ordered Date AMB REFERRAL ORDER TO PHYSICAL THERAPY 1 documented in this encounter Care Teams Director Distribution Relationship Specialty Start Date End Date Jessica Navarro NP [address] [place] [address] PCP - General 08/23/20 documented as of this encounter
--- OUTSIDE RECORDS SUMMARY | 2024-04-14 18:33 | XMS_ITS | Encounter Summary ---
Author Organization [facility] Address [address] [address] Care Team Providers Care Bill Peddler Name Role Phone Jessica Navarro NP Primary Care Provider [phone] Reason for Visit * Reason Comments Follow-up Encounter Details Date Type Department Care Team (Late st Contact Info) Description 10/01/2020 9:10 AM CDT Office Visit [facility] [address] [place] [address] Kishan Broussard MD [address] [address] Nontraumatic rupture of tendons of left foot [...] - - Weight 89.8 kg (198 lb) 10/01/2020 9:09 AM CDT Height 160 cm (5' 3 ) 10/01/2020 9:09 AM CDT Body Mass Index 35.07 10/01/2020 9:09 AM CDT documented in this encounter Ordered Prescriptions Prescription Sig Dispense Quantity Refills Last Filled Start Date End Date methylPREDNISolone (MEDROL DOSEPACK) 4 mg DosepackIndication s:Nontraumatic rupture of tendons of left foot and ankle Take as directed on package 1 packet 10/01/2020 documented in this encounter Progress Notes * Kishan Broussard MD - 10/01/2020 9:10 AM CDT Patient returns today indicating that she has had no physical therapy for her foot due to the fact that she is currently under therapy for her back and the therapists will not treat 2 areas at 1 time. She also attempted to draft roller picker the Medrol Dosepak but the pharmacist said that they did not receivethe prescription. This will be represcribed. Patient condition is unaltered presently. Examination is unaltered. Diagnosis-recovering left foot tendon repair. Plan-represcribed Medrol Dosepak. Represcribed physical therapy. Return to this office in 3-4 weeks. documented in this encounter Plan of Treatment Not on file documented as of this encounter Visit Diagnoses Diagnosis Nontraumatic rupture of tendons of left foot and ankle- Primary documented in this encounter Discontinued Medications Medication Sig Discontinue Reason Start Date End Da te methylPREDNISolone (Medrol, Ron,) 4 mg Dosepack Take as directed on package Other 09/10/2020 10/01/2020 documented as of this encounter Care Teams Bill Peddler Relationship Specialty Start Date End Date Jessica Navarro NP [address] [place] [address] PCP - General 08/23/20 documented as of this encounter
--- OUTSIDE RECORDS SUMMARY | 2024-04-14 18:33 | XMS_ITS | Encounter Summary ---
Author Organization [facility] Healthcare Address [address] [place] [address] Care Team Providers Care Parks Recreation Director Name Role Phone Jessica Navarro NP Primary Care Provider [phone] Reason for Visit * Reason Comments PT Treatment Encounter Details Date Type Department Care Team (Late st Contact Info) Description 07/31/2020 10:00 AM CDT Therapy [facility] Physical Therapy [address] [place] [address] Jaye Zayas, PT Nontraumatic rupture of tendons [...] Progress Notes * Jaye Zayas, PT - 07/31/2020 10:00 AM CDT PT Daily Treatment Note Lilli Santos 1995 Subjective: Pt states her foot is pretty sore today. She states the pain is 4.5/10. She states she really didn't do too much on her foot but it is sore today. She states the pain is over the medial aspect of the left ankle around the incision area. Pain: 3/10 L ankle/foot Objective: Pt did have her [...] Blue foam standing feet together x 1 min. Blue foam SLS x 5 for 15 sec each Bilat toe raises x 15 Bilat heel walking x 2 passes Bilat toe walking x 2 pases Attempted partial squat x 10* Blue theraband resisted DF/PF, EV/INV B x 15 each?? Gentle STM/IASTM manual to medial aspect of [...] and advance as pt tolerates. Start Time: 1000 End Time:1045 Jaye Zayas, PT, DPT documented in this encounter Plan of Treatment Not on file documented as of this encounter Visit Diagnoses Diagnosis Nontraumatic rupture of tendons of left foot and ankle- Primary documented in this encounter Care Teams Parks Recreation Director Relationship Specialty Start Date End Date Jessica Navarro NP [address] [place] [address] PCP - General 07/26/19 08/22/20 documented as of this encounter
--- OUTSIDE RECORDS SUMMARY | 2024-04-14 18:33 | XMS_ITS | Encounter Summary ---
Author Organization [facility] Healthcare Address [address] [place] [address] Care Team Providers Care Scallop Binder Name Role Phone Jessica Navarro NP Primary Care Provider Reason for Visit * Reason Comments Knee Pain Encounter Details Date Type Department Care Team (Late st Contact Info) Description 09/09/2021 1:40 PM CDT - 09/09/2021 3:30 PM CDT Emergency [facility] Emergency Department [address] [place] [address] Maia Garcia MD [address] [place] [address] Knee injury, initial encounter (Primary Dx) Discharge Disposition: Discharge [...] Sign Reading Time Taken Comments Blood Pressure 130/83 09/09/2021 1:31 PM CDT Pulse 78 09/09/2021 1:31 PM CDT Temperature 36.4 ??C (97.6 ??F) 09/09/2021 1:31 PM CD T Respiratory Rate 18 09/09/2021 1:31 PM CDT Oxygen Saturation 99% 09/09/2021 1:31 PM CDT Inhaled Oxygen Concentration - - Weight 97.5 kg (215 lb) 09/09/2021 1:31 PM CDT Height 160 cm (5' 3 ) 09/09/2021 1:31 PM CDT Body Mass Index 38.09 09/09/2021 1:31 PM CDT documented in this encounter Discharge Diagnoses Diagnosis Unspecified injury of right lower leg, initial encounter - UNSPECIFIED INJURY OF RIGHT LOWER LEG, INITIAL ENCOUNTER Slipping, tripping and stumbling without falling, unspecified, initial encounter - SLIPPING, TRIPPING AND STUMBLING WITHOUT FALLING, UNSPECIFIED, INITIAL ENCOUNTER Civilian activity done for income or pay - CIVILIAN ACTIVITY DONE FOR INCOME OR PAY Unilateral primary osteoarthritis, right knee - UNILATERAL PRIMARY OSTEOARTHRITIS, RIGHT KNEE Personal history of nicotine dependence - PERSONAL HISTORY OF NICOTINE DEPENDENCE documented in this encounter Discharge Instructions * Attachments The following attachments cannot be sent through Care Everywhere. * Knee Sprain (Maltese) * R.I.C.E. Treatment (Operations Officer Afloat) (Maltese) documented in this encounter Medications at Time [...] Date End Date ibuprofen (ADVIL,MOTRIN) 800 mg tabletIndications: Pain Take 1 tablet (800 mg total) by mouth every 8 (eight) hours as needed for pain 21 tablet 09/09/2021 11/04/2023 documented in this encounter Discharge Disposition Disposition Code Departure Means Destination Discharge to home or self care documented in this encounter ED Notes * Maia Garcia MD - 09/09/2021 3:30 PM CDT HPI Chief Complaint Patient presents with ??? Knee Pain The patient is a 26-year-old female with no significant past medical history who comes to the emergency department today for knee pain. Patient states she slipped on a ladder at work shortly after she noticed her right knee was painful. She is still able to bear weight on it. Does have pain when she does so. No previous injuries to this knee. No other injury. Patient History: Patient Active Problem List Diagnosis [...] of Systems Review of Systems Constitutional: Negative. Negative for activity change, appetite change, chills, diaphoresis, fatigue and fever. HENT: Negative. Negative for congestion, drooling, rhinorrhea and sore throat. Eyes: Negative. Negative for photophobia, redness and visual disturbance. Respiratory: Negative. Negative for cough, chest tightness and shortness of breath. Cardiovascular: Negative. Negative for chest pain, palpitations and leg swelling. Gastrointestinal: Negative. Negative for abdominal pain, anal bleeding, blood in stool, constipation, diarrhea, nausea and vomiting. Endocrine: Negative. Genitourinary: Negative. Negative for decreased urine volume, difficulty urinating, dysuria, frequency, hematuria and urgency. Musculoskeletal: Negative. Negative for arthralgias (Right knee pain) and myalgias. Skin: Negative. Negative for rash and wound. Allergic/Immunologic: Negative for immunocompromised state. Neurological: Negative. Negative for dizziness, weakness and headaches. Hematological: Negative. Does not bruise/bleed easily. Psychiatric/Behavioral: Negative. Negative for confusion. All other systems reviewed and are negative. Physical Exam ED Triage Vitals [09/09/21 1331] Temp Pulse Resp BP SpO2 36.4 ??C (97.6 ??F) 78 18 130/83 99 % Temp src Heart Rate Source Patient Position BP Location FiO2 (%) -- -- -- -- -- Height Height Method Weight Weight Method 1.6 m (5' 3 ) -- 97.5 kg (215 lb) -- Physical Exam Vitals and nursing note reviewed. Constitutional: General: She is not in acute distress. Appearance: She is well-developed. She is not ill-appearing, toxic-appearing or diaphoretic. HENT: Head: Normocephalic and atraumatic. Eyes: General: No scleral icterus. Extraocular Movements: Extraocular movements intact. Conjunctiva/sclera: Conjunctivae normal. Pupils: Pupils are equal, round, and reactive to light. Neck: Thyroid: No thyromegaly. Vascular: No JVD. Trachea: No tracheal deviation. Cardiovascular: Rate and Rhythm: Normal rate. Pulmonary: Effort: Pulmonary effort is normal. No respiratory distress. Breath sounds: No wheezing. Abdominal: General: Abdomen is flat. Musculoskeletal: General: Tenderness (Mild tenderness lower joint line right knee) present. No swelling or deformity. Normal range of motion. Cervical back: Normal range of motion and neck supple. Right lower leg: No edema. Skin: General: Skin is warm and dry. Neurological: General: No focal deficit present. Mental Status: She is alert and oriented to person, place, and time. Mental status is at baseline. Motor: No abnormal muscle tone. Psychiatric: Mood and Affect: Mood normal. Behavior: Behavior normal. Thought Content: Thought content normal. Judgment: Judgment normal. Discussed follow-up with workmen's comp physician or PCP per employ year recommendation. Prescribedpain medication for pain management Tylenol ibuprofen p.r.n.. Return to emergency department for worsening symptoms. MDM MDM Final diagnoses: Knee injury, initial encounter There may be grammatical errors in this note due to use of voice recognition software. DISPOSITION:DISCHARGED Maia Garcia MD 09/11/21 0709 * Meg Chi RN - 09/09/2021 1:29 PM CDT Patient arrives to ED via POV by her self with c/o right knee pain. Patient was climbing up at a ladder while at work and felt a pop and has pain going up her leg. documented in this encounter Plan of Treatment Not on file documented as of this encounter Procedures Procedure Name Priority Date/Time Associated Diagnosis Comments XR KNEE RIGHT 3 VIEWS ED 09/09/2021 2:47 PM CDT documented in this encounter Results * XR Knee Right 3 Views (09/09/2021 2:47 PM CDT) Anatomical Region Laterality Modality Lower Extremities, Knee Right Computed Radiography 09/09/2021 2:56 PM CDT Narrative 09/09/2021 3:09 PM CDT EXAM DESCRIPTION: XR KNEE RIGHT 3 VIEWS REASON FOR STUDY: injury/ pain ?? c/o right knee pain. Patient was climbing up at a ladder while at work and felt a pop and has pain going up her leg. ? TECHNIQUE: Three views submitted without comparison. FINDINGS: There are no fractures. ??Alignment is normal. ??There is mild medial and patellofemoral bicompartmental right knee osteoarthritis. ??There is no effusion. IMPRESSION: Mild medial and patellofemoral bicompartmental osteoarthritis. THIS IS AN ELECTRONICALLY VERIFIED FINAL REPORT 09/09/2021 3:09 PM - Electronically signed by ??Maurilio Kim M.D. MF: [place] D: ??09/09/2021 3:09 PM T: ??09/09/2021 3:09 PM Report ID: [id number] Reading Location: ??[id number] Procedure Note Maurilio Kim MD - 09/09/2021 EXAM DESCRIPTION: XR KNEE RIGHT 3 VIEWS REASON FOR STUDY: injury/ pain c/o right knee pain. Patient was climbing up at a ladder while at work and felt a pop and has pain going up her leg. TECHNIQUE: Three views submitted without comparison. FINDINGS: There are no fractures. Alignment is normal. There is mild medial and patellofemoral bicompartmental right knee osteoarthritis. There is no effusion. IMPRESSION: Mild medial and patellofemoral bicompartmental osteoarthritis. THIS IS AN ELECTRONICALLY VERIFIED FINAL REPORT 09/09/2021 3:09 PM - Electronically signed by Maurilio Kim M.D. MF: [place] Report ID: [id number] Reading Location: [place] [address] Maia Garcia MD IMG XR PROCEDURES F inal Result documented in this encounter Visit Diagnoses Diagnosis Knee injury, initial encounter- Primary documented in this encounter Orders Nursing Count Last Ordered Date First Orde red Date APPLY LUCAS WRAP 1 09/09/2021 documented in this encounter Care Teams Scallop Binder Relationship Specialty Start Date End Date Navarro, Jessica Pinto NP [address] [place] [address] PCP - General 08/23/20 documented as of this encounter
--- OUTSIDE RECORDS SUMMARY | 2024-04-14 18:33 | XMS_ITS | Encounter Summary ---
Author Organization [facility] Healthcare Address [address] [place] [address] Care Team Providers Care Band Presser Name Role Phone MelanieJohnJessicalambert Pinto NP Primary Care Provider Reason for Visit * Reason Comments PT Treatment Encounter Details Date Type Department Care Team (Late st Contact Info) Description 09/13/2020 3:15 PM CDT Therapy [facility] [address] [place] [id number] Jaye Zayas, PT Radiculopathy, thoracic region (Primary [...] Progress Notes * Jaye Zayas, PT - 09/13/2020 3:15 PM CDT PT Daily Treatment Note Lilli Santos 1995 Subjective: Pt states her pain is More intense today. She states she was trying to clean her pool and her pain got really bad. She states she had to ice it. She states she thinks the traction may be helping her some. Pt reported increased LBP with supine hooklying position. Pain: 6.5/10. Objective:Omitted ext ex this date and trying more flexion ex. Treatment Provided: * indicates not performed today Attempted SKTC, but pt reported no real stretching sensation Sitting on Edge of treatment table: -sitting trunk flexion reaching to the floor x 5 -sitting rolling large silver ball fwd x 10 then diagonal to each side x 10 (pt reports more of a stretch to the left and more discomfort going to the right. ) Quadruped rocking back toward heels x 10 Quadruped angry cat ex x10 Pelvic traction int 30/10 x 10 min 80#/40# (no ext ex this date)(nothing below performed) [...] the right. 30 sec hold x 4* In prone IFC to right side of lower back with MHP x 10 min. *?? Treatment Ideas Modalities for mm relaxation Prone passive shift of pelvis to the right Go into prone on elbows and prone press ups as tolerated Progress with extension ex May try mechanical pelvic traction ktape as indicated ?? Assessment: Pt tolerated treatment well. She has not responded well to extension ex and flexion ex were tried today with pt reporting that they feel better. Plan: Continue to see pt per POC and advance as tolerated. Start Time: 1516 End Time: 1601 Jaye Zayas, PT, DPT documented in this encounter Plan of Treatment Not on file documented as of this encounter Visit Diagnoses Diagnosis Radiculopathy, thoracic region- Primary Thoracic or lumbosacral neuritis or radiculitis, unspecified documented in this encounter Care Teams Band Presser Relationship Specialty Start Date End Date Melanie, Jessica Pinto NP [address] [place] [address] PCP - General 08/23/20 documented as of this encounter
--- OUTSIDE RECORDS SUMMARY | 2024-04-14 18:34 | XMS_ITS | Encounter Summary ---
Author Organization [facility] Address [address] [place] [address] Care Team Providers Care School Examiner Name Role Phone Melanie Jessica Pinto NP Primary Care Provider Reason for Visit * Reason Comments COVID-19 EVALUATION Cough Encounter Details Date Type Department Care Team (Late st Contact Info) Description 05/14/2020 2:58 PM LINE THERAPIST - 05/14/2020 6:50 PM LINE THERAPIST Emergency [facility] Emergency Department [address] [place] [address] Yadira Duque MD [address] [place] [address] COVID-19 (Primary Dx) Discharge Disposition: Discharge to home [...] Reading Time Taken Comments Blood Pressure 116/62 05/14/2020 5:30 PM LINE THERAPIST Pulse 88 05/14/2020 5:30 PM LINE THERAPIST Temperature 36.1 ??C (96.9 ??F) 05/14/2020 3:01 PM CS T Respiratory Rate 20 05/14/2020 5:30 PM LINE THERAPIST Oxygen Saturation 97% 05/14/2020 4:19 PM LINE THERAPIST Inhaled Oxygen Concentration - - Weight 88.7 kg (195 lb 8 oz) 05/14/2020 3:02 PM LINE THERAPIST Height 160 cm (5' 2.99 ) 05/14/2020 3:02 PM LINE THERAPIST Body Mass Index 34.64 05/14/2020 3:02 PM LINE THERAPIST documented in this encounter Discharge Diagnoses Diagnosis COVID-19 - COVID-19 Unspecified asthma, uncomplicated - UNSPECIFIED ASTHMA, UNCOMPLICATED Polycystic ovarian syndrome - POLYCYSTIC OVARIAN SYNDROME Polycystic ovaries Anxiety disorder, unspecified - ANXIETY DISORDER, UNSPECIFIED Gastro-esophageal reflux disease without esophagitis - GASTRO-ESOPHAGEAL REFLUX DISEASE WITHOUT ESOPHAGITIS Nicotine dependence, cigarettes, uncomplicated - NICOTINE DEPENDENCE, CIGARETTES, UNCOMPLICATED documented in this encounter Discharge Instructions * Discharge Instructions* Yadira Duque MD - 05/14/2020 6:33 PM LINE THERAPIST Use inhaler as needed. Use cough medicine as needed. Take prednisone as directed. Follow-up with primary care doctor. You need to self isolate until 2 weeks after diagnosis. THERAPIST THERAPIST * Attachments The following attachments cannot be sent through Care Everywhere. * Coronavirus Disease 2019: Caring for Yourself and Others (Bulgarian) documented in this encounter Medications at Time of Discharge predniSONE (DELTASONE) 20 mg tablet Take 2 tablets (40 mg) by mouth daily for 5 days 10 tablet 05/14/2020 05/19/2020 albuterol HFA (PROVENTIL HFA,VENTOLIN HFA,PROAIR HFA) 90 [...] spasms 02/04/2021 documented as of this encounter Ordered Prescriptions Prescription Sig Dispense Quantity Refills Last Filled Start Date End Date predniSONE (DELTASONE) 20 mg tablet Take 2 tablets (40 mg) by mouth daily for 5 days 10 tablet 05/14/2020 1 benzonatate (TESSALON) 100 mg capsuleIndications :Cough Take 1 capsule (100 mg total) by mouth 3 (three) times a day as needed for cough 15 capsule 05/14/2020 3 albuterol HFA (PROVENTIL HFA,VENTOLIN HFA,PROAIR HFA) 90 mcg/actuation inhaler Inhale 2 puffs every 4 (four) hours as needed for wheezing 1 Inhaler 05/14/2020 4 documented in this encounter Discharge Disposition Disposition Code Departure Means Destination Discharge to home or self care documented in this encounter ED Notes * Yadira Duque MD - 05/14/2020 4:16 PM CSTAssociated Order(s): ECG 12 lead HPI Chief Complaint Patient presents with ??? COVID-19 EVALUATION ??? Cough HPI 3:39 PM Lilli Santos is a 25 y.o. female presenting to the ED via EMS from home c/o a dry cough with associated fever, chills, CP, SOB, rhinorrhea, N/V, and YEPEZ that began on four days ago. She is a known COVID-19 pt who tested positive four days ago. En route, EMS gave her 125 mg of Solumedrol andalbuterol as well. Pt denies diarrhea and loss of taste/smell. She has taken Ibuprofen, Robitussin, Nyquil, and steroids with minimal relief of her sx. Pt reports she does use an inhaler at home. No other complaints were expressed at this time. Pt has a PMHx of asthma, PCOS, GERD, and anxiety. She is a current everyday smoker who lives at home. Her PCP is Dr. Jessica Navarro. PMSFHx: Nursing note reviewed. Patient History: Past Medical History: Diagnosis Date ??? Anxiety ??? Asthma ??? GERD (gastroesophageal reflux disease) Past Surgical History: Procedure Laterality Date ??? BREAST SURGERY breast reduction ??? THYROID SURGERY History reviewed. No pertinent family history. Social History Tobacco Use ??? Smoking status: Current Every Day Smoker Packs/day: 1.00 Types: Cigarettes Substance Use Topics ??? Alcohol use: Never Frequency: Never ??? Drug use: Never Review of Systems Review of Systems Constitutional: Positive for chills and fever. HENT: Positive for rhinorrhea. Negative for congestion and sore throat. Eyes: Negative for pain. Respiratory: Positive for cough and shortness of breath. Cardiovascular: Positive for chest pain. Negative for leg swelling. Gastrointestinal: Positive for nausea and vomiting. Negative for abdominal pain and diarrhea. Genitourinary: Negative for difficulty urinating. Musculoskeletal: Negative for myalgias. Skin: Negative for rash. Neurological: Positive for headaches. Negative for dizziness. Psychiatric/Behavioral: Negative for behavioral problems. Physical Exam ED Triage Vitals Temp Pulse Resp BP SpO2 05/14/20 1501 05/14/20 1502 05/14/20 1501 05/14/20 1516 05/14/20 1502 36.1 ??C (96.9 ??F) 107 22 125/73 99 % Temp src Heart Rate Source Patient Position BP Location FiO2 (%) 05/14/20 1501 -- -- -- -- Temporal Physical Exam Vitals signs and nursing note reviewed. Constitutional: General: She is not in acute distress. Appearance: She is well-developed. HENT: Head: Normocephalic and atraumatic. Eyes: Conjunctiva/sclera: Conjunctivae normal. Neck: Musculoskeletal: Neck supple. Cardiovascular: Rate and Rhythm: Normal rate and regular rhythm. Heart sounds: Normal heart sounds. No murmur. Pulmonary: Effort: Pulmonary effort is normal. No respiratory distress. Breath sounds: Wheezing (diffuse) present. Comments: Pt was coughing. Abdominal: General: Bowel sounds are normal. There is no distension. Palpations: Abdomen is soft. Tenderness: There is no abdominal tenderness. There is no guarding. Skin: General: Skin is warm and dry. Neurological: Mental Status: She is alert and oriented to person, place, and time. ECG 12 lead Date/Time: 05/14/2020 4:37 PM Performed by: Yadira Duque MD Authorized by: Yadira Duque MD Rate: ECG rate: 71 ECG rate assessment: normal Rhythm: Rhythm: sinus rhythm Comments: No acute findings. MDM Labs Reviewed COMPREHENSIVE METABOLIC PANEL - Abnormal Result Value Sodium 142 Potassium, pl 3.3 Chloride 103 CO2 26 Anion gap 13 BUN 8 Creatinine 0.78 Glucose 120 Calcium 9.3 Bilirubin, total 0.7 Protein, pl 8.0 Albumin 4.7 Alk phos 81 ALT 202 (*) AST 104 (*) HCG, BLOOD, QUANTITATIVE hCG, quant <5.0 APTT aPTT 32 CBC WITH AUTO DIFFERENTIAL WBC 6.7 Hgb 15.2 Hct 44.3 Plt 191 MPV 11.6 RBC 4.98 MCV 89.0 MCH 30.5 MCHC 34.3 RDW CV 11.7 RDW SD 37.8 NRBC abs 0.00 D-DIMER, QUANTITATIVE D-Dimer 381 MAGNESIUM Magnesium 2.0 PRO B-TYPE NATRIURETIC PEPTIDE NT-proBNP 10 PROTIME-INR PT 11.9 INR 1.0 TROPONIN T Troponin T <0.01 SEPSIS LACTATE WITH REFLEX Sepsis Lactate 1.9 DIFFERENTIAL AUTO Neutrophil abs 3.9 Imm gran abs 0.0 Lymphocyte abs 2.3 Monocyte abs 0.2 Eosinophil abs 0.2 Basophil abs 0.0 Neutrophil pct 59.0 Imm gran pct 0.1 Lymphocyte pct 34.3 Monocyte pct 3.6 Eosinophil pct 2.7 Basophil pct 0.3 EGFR GFR 104 XR Chest 1 Vw Portable Final Result 1. Minimal patchy left basilar airspace opacities, which is likely assessment atelectasis. No definite evidence of focal consolidation. Electronically signed by: Charly Mendez D.O. BP 116/62 Pulse 88 Temp 36.1 ??C (96.9 ??F) (Temporal) Resp 20 Ht 160 cm (5' 2.99 ) Wt 88.7 kg (195 lb 8 oz) LMP 05/08/2020 SpO2 97% BMI 34.64 kg/m?? MDM Number of Diagnoses or Management Options Amount and/or Complexity of Data Reviewed Clinical lab tests: ordered and reviewed Tests in the radiology section of CPT??: ordered and reviewed Tests in the medicine section of CPT??: reviewed and ordered Risk of Complications, Morbidity, and/or Mortality Presenting problems: moderate Diagnostic procedures: moderate Management options: moderate General comments: Patient with the asthma presents with COVID. She has had a cough. Saturations arenormal. She has some wheezing. She was given cough medicine, albuterol and Toradol. Also IV fluids.She is stable for discharge. She will self isolate. Patient Progress Patient progress: stable ED Course as of May 14 2254 Time: 05/14 1627 Comment: The patient has been educated about the risks of smoking and the benefits of stopping. They have been advised to quit, and if that fails, to discuss pharmacological options with their familydoctor. Time spent is 3-10 minutes performing this education. By: Teresa Will Clinical Impression: COVID-19 This note is prepared by Carla Will, acting as a scribe for Yadira Duque MD. I electronically signed this note at 10:55 PM on 05/14/2020. IYadira MD have personally performed the services described in the documentation, reviewed the documentation, as recorded by the scribe in my presence, and it accurately and completely records my words and actions. Yadira Duque MD 05/14/200 THERAPIST * Gita Wang, SHERIDAN - 05/14/2020 3:00 PM CST Known covid + patient presents via EMS for evaluation of a cough. Patient received 125mg solu-medrol and an albuterol treatment en route. THERAPIST * Kandy Leach RN - 05/14/2020 2:58 PM CST Bed: ED11 Expected date: Expected time: Means of arrival: Comments: [email or web address] Kandy Leach RN 05/14/20 [id number] THERAPIST documented in this encounter Plan of Treatment Not on file documented as of this encounter Procedures Procedure Name Priority Date/Time Associated Diagnosis Comments SEPSIS LACTATE WITH REFLEX STAT 05/14/2020 4:11 PM LINE THERAPIST EGFR STAT 05/14/2020 4:11 PM LINE THERAPIST DIFFERENTIAL AUTO STAT 05/14/2020 4:1 1 PM LINE THERAPIST PRO B-TYPE NATRIURETIC PEPTIDE STAT 05/14/2020 4:11 PM LINE THERAPIST CBC WITH AUTO DIFFERENTIAL STAT 05/14/2020 4:11 PM LINE THERAPIST APTT STAT 05/14/2020 4:11 PM LINE THERAPIST PROTIME-INR STAT 05/14/2020 4:11 PM LINE THERAPIST D-DIMER, QUANTITATIVE STAT 05/14/2020 4:11 PM LINE THERAPIST HCG, BLOOD, QUANTITATIVE STAT 05/14/2020 4:11 PM LINE THERAPIST TROPONIN T STAT 05/14/2020 4:11 PM LINE THERAPIST MAGNESIUM Routine 05/14/2020 4:11 PM LINE THERAPIST COMPREHENSIVE METABOLIC PANEL STAT 05/14/2020 4:11 PM LINE THERAPIST XR CHEST 1 VIEW ED 05/14/2020 3:21 PM LINE THERAPIST ECG 12-LEAD STAT 05/14/2020 3:04 PM LINE THERAPIST documented in this encounter Results * eGFR (05/14/2020 4:11 PM LINE THERAPIST) eGFR 104 mL/min/1.7 3 m2 [facility] ([place]) Comment: Interpretive Data Reference Interval Normal [...] was last reviewed 2020 Blood specimen (specimen) 05/14/2020 4:11 PM LINE THERAPIST 05/14/2020 4:20 PM LINE THERAPIST Yadira Duque MD LAB BLOOD ORDERABLES Final R esult [facility] ([place]) 1 [facility] Department [place] [address] * Differential, auto (05/14/2020 4:11 PM LINE THERAPIST) Pathologist [facility] Neutrophil abs 3.9 1.7 - 6.5 K/cumm [facility] ([place]) Imm gran abs 0.0 0.0 - 0.1 K/cumm [facility] ([place]) Lymphocyte abs 2.3 0.8 - 3.3 K/cumm [facility] ([place]) Monocyte abs 0.2 0.2 - 0.8 K/cumm [facility] ([place]) Eosinophil abs 0.2 0.0 - 0.5 K/cumm [facility] ([place]) Basophil abs 0.0 0.0 - 0.1 K/cumm [facility] ([place]) Neutrophil pct 59.0 % [facility] ([place]) Comment: Interpretive Data Percent cell count reference ranges are not reported, since discordance with absolute values may lead to misinterpretation of CBC data. Current Interpretive Data was last revised on 2017. Imm gran pct 0.1 % [facility] ([place]) Comment: Interpretive Data Percent cell count reference ranges are not reported, since discordance with absolute values may lead to misinterpretation of CBC data. Current Interpretive Data was last revised on 2017. Lymphocyte pct 34.3 % [facility] ([place]) Comment: Interpretive Data Percent cell count reference ranges are not reported, since discordance with absolute values may lead to misinterpretation of CBC data. Current Interpretive Data was last revised on 2017. Monocyte pct 3.6 % [facility] ([place]) Comment: Interpretive Data Percent cell count reference ranges are not reported, since discordance with absolute values may lead to misinterpretation of CBC data. Current Interpretive Data was last revised on 2017. Eosinophil pct 2.7 % [facility] ([place]) Comment: Interpretive Data Percent cell count reference ranges are not reported, since discordance with absolute values may lead to misinterpretation of CBC data. Current Interpretive Data was last revised on 2017. Basophil pct 0.3 % [facility] ([place]) Comment: Interpretive Data Percent cell count reference ranges are not reported, since discordance with absolute values may lead to misinterpretation of CBC data. Current Interpretive Data was last revised on 2017. Blood specimen (specimen) 05/14/2020 4:11 PM LINE THERAPIST 05/14/2020 4:22 PM LINE THERAPIST us Yadira Duque MD LAB BLOOD ORDERABLES Final R esult [facility] ([place]) [address] Department [place] [address] * Sepsis Lactate w/ Reflex (05/14/2020 4:11 PM LINE THERAPIST) Pathologist [facility] Sepsis Lactate 1.9 0.7 - 2.0 mmol/L [facility] ([place]) Blood specimen (specimen) 05/14/2020 4:11 PM LINE THERAPIST 05/14/2020 4:18 PM LINE THERAPIST Yadira Duque MD LAB BLOOD ORDERABLES Final R esult [facility] ([place]) 1 [facility] [email or web address] [address] * Troponin T (05/14/2020 4:11 PM LINE THERAPIST) [facility] Troponin T <0.01 0.00 - 0.01 ng/mL [facility] ([place]) Comment: Interpretive Data Reference ranges for children <18 years of age have not been established. - > or = 18 years: Serial determinations are recommended for the diagnosis of myocardial infarction. ??Temporal rise and fall are consistent with myocardial infarction when at least one value is above the 99th percentile upper reference limit for troponin assay. ??Journal of the [place] College [employer] 2012;60:1581-98. Current Interpretive Data Last Revised Date: 2017. Blood specimen (specimen) 05/14/2020 4:11 PM LINE THERAPIST 05/14/2020 4:20 PM LINE THERAPIST Yadira Duque MD LAB BLOOD ORDERABLES Final R esult [facility] ([place]) [address] [facility] [place] [address] * Protime-INR (05/14/2020 4:11 PM LINE THERAPIST) Pathologist [facility] PT 11.9 9.5 - 13.0 sec [facility] ([place]) INR 1.0 0.9 - 1.2 [facility] ([place]) Comment: Interpretive data Oral anticoagulant therapeutic ranges: Venous thromboembolism prophylaxis or treatment: 2.0-3.0 CARDIOLOGY Standard range: 2.0-3.0 High-intensity range: 2.5-3.5 Refer to indication-specific guidelines for appropriate target ranges for prosthetic heart valve replacement. Current interpretive data was last revised on 2019. Blood specimen (specimen) 05/14/2020 4:11 PM LINE THERAPIST 05/14/2020 4:20 PM LINE THERAPIST us Yadira Duque MD LAB BLOOD ORDERABLES Final R esult [facility] ([place]) 1 [facility] Department of Laboratories [place], [place] [address] * Pro B-type natriuretic peptide (05/14/2020 4:11 PM LINE THERAPIST) NT-proBNP 10 <=300 pg/mL [facility] ([place]) Comment: Interpretive Comments: A. Dyspnea in Acute Care Setting All Ages: ?< 300 pg/ml, acute heart failure unlikely. < 50 yrs: ?300 - 450 pg/ml, further investigation warranted. ? > 450 pg/ml, acute heart failure likely. 50 - 74 yrs: ? 300 - 900 pg/ml, further investigation warranted. ? > 900 pg/ml, acute heart failure likely . > or = 75 yrs: ? 450 - 1800 pg/ml, further investigation warranted. ? > 1800 pg/ml, acute heart failure likely. B. Non-acute Setting < 75 yrs ? < 125 pg/ml, rules out heart failure. ? > or = 125 pg/ml, further investigation warranted. > or = 75 yrs ?< 450 pg/ml, rules out heart failure. ? > or = 450 pg/ml, further investigation warranted. - Knowledge of each individual patient's NT-proBNP range may be more useful than using similar cut-points for every patient. Please note that marked elevations in NT-proBNP levels may be observed in state other than Left Ventricular Congestive Failure, including: acute coronary syndromes, right heart strain/failure (including pulmonary embolism and cor pulmonale), critical illness, renal failure, as well as advanced age. - References: 1. Candy BUTT et.al. Eur Heart J. 2006:27:330-337. 2. Salena RW, Dalton GARCIA. J. AM Natividad Cardiol: Cardiovasc Imag. 2009;2: 216- 225. Interpretive Data Last Revised Date: 2017. Blood specimen (specimen) 05/14/2020 4:11 PM LINE THERAPIST 05/14/2020 4:20 PM LINE THERAPIST Yadira Duque MD LAB BLOOD ORDERABLES Final R esult [facility] ([place]) 1 [facility] [place] [address] * Magnesium (05/14/2020 4:11 PM LINE THERAPIST) Pathologist [facility] Magnesium 2.0 1.4 - 2.5 mg/dL [facility] ([place]) Blood specimen (specimen) 05/14/2020 4:11 PM LINE THERAPIST 05/14/2020 4:20 PM LINE THERAPIST Yadira Duque MD LAB BLOOD ORDERABLES Final R esult [facility] ([place]) 1 [facility] [place] [address] * D-dimer, quantitative (05/14/2020 4:11 PM LINE THERAPIST) D-Dimer 381 <=499 ng/mL FEU [facility] ([place]) Comment: Interpretive data FDA approved the D-dimer, in conjunction with a low or moderate pretest probability score, to exclude venous thromboembolic events (VTE) (PE and DVT) in outpatients when the D-dimer result is < 500 ng/ml FEU. ?? Evidence supports using an age-adjusted D-dimer cut-off for outpatients older than 50 (age x 10) to improve specificity without sacrificing sensitivity. Example: age 68, VTE cut-off 680 ng/ml FEU. References; Schouten HT et al. Brit Med J. 2013;346:f2492. Philly et al. Annals Int Med. 2015;163:701-11. Current interpretive data was last revised on 2019. Blood specimen (specimen) 05/14/2020 4:11 PM LINE THERAPIST 05/14/2020 4:20 PM LINE THERAPIST us Yadira Duque MD LAB BLOOD ORDERABLES Final R esult [facility] ([place]) 1 [facility] Department [place] [address] * (ABNORMAL) Comprehensive metabolic panel (05/14/2020 4:11 PM LINE THERAPIST) Sodium 142 135 - 145 mmol/L [facility] ([place]) Potassium, pl 3.3 3.3 - 4.9 mmol/L [facility] ([place] Chloride 103 97 - 110 mmol/L [facility] ([place]) CO2 26 22 - 32 mmol/L [facility] ([place]) Anion gap 13 2 - 15 mmol/L [facility] ([place]) BUN 8 8 - 25 mg/dL [facility] ([place]) Creatinine 0.78 0.60 - 1.10 mg/dL [facility] ([place]) Glucose 120 70 - 199 mg/dL [facility] ([place]) Comment: Interpretive Data Fasting glucose [...] interpretive data was last revised 2017. Calcium 9.3 8.5 - 10.3 mg/dL [facility] ([place]) Bilirubin, total 0.7 0.1 - 1.2 mg/dL [facility] ([place]) Protein, pl 8.0 6.5 - 8.5 g/dL [facility] ([place]) Albumin 4.7 3.5 - 5.0 g/dL [facility] ([place]) Alk phos 81 40 - 130 Units/L [facility] ([place]) ALT 202(H) 7 - 45 Units/L [facility] ([place]) AST 104(H) 10 - 45 Units/L [facility] ([place]) Blood specimen (specimen) 05/14/2020 4:11 PM LINE THERAPIST 05/14/2020 4:20 PM LINE THERAPIST Yadira Duque MD LAB BLOOD ORDERABLES Final R esult [facility] ([place] 1 [facility] Department [place] [address] * CBC with auto differential (05/14/2020 4:11 PM LINE THERAPIST) WBC 6.7 3.8 - 9.9 K/cumm [facility] ([place]) Hgb 15.2 11.9 - 15.5 g/dL [facility] ([place]) Hct 44.3 35.6 - 45.5 % [facility] ([place]) Plt 191 150 - 400 K/cumm [facility] ([place]) MPV 11.6 9.1 - 12.3 fL [facility] ([place]) RBC 4.98 3.90 - 5.20 M/cumm [facility] ([place]) MCV 89.0 81.3 - 96.4 fL [facility] ([place]) MCH 30.5 27.1 - 33.3 pg [facility] ([place]) MCHC 34.3 32.3 - 35.7 g/dL [facility] ([place]) RDW CV 11.7 11.1 - 14.9 % [facility] ([place]) RDW SD 37.8 35.7 - 48.1 fL [facility] ([place]) NRBC abs 0.00 0.00 - 0.01 K/cumm [facility] ([place]) Blood specimen (specimen) 05/14/2020 4:11 PM LINE THERAPIST 05/14/2020 4:22 PM LINE THERAPIST Yadira Duque MD LAB BLOOD ORDERABLES Final R esult Performing Organization Address [facility] Co de Phone Number [facility] ([place]) 1 [facility] [email or web address] [address] * aPTT (05/14/2020 4:11 PM LINE THERAPIST) aPTT 32 25 - 37 sec [facility] ([place]) Comment: Interpretive data Heparin therapeutic range: 60-94 seconds Range based on correlation with therapeutic heparin activity range of 0.3-0.7 units/ml. Current interpretive data was last revised on 2019. Blood specimen (specimen) 05/14/2020 4:11 PM LINE THERAPIST 05/14/2020 4:20 PM LINE THERAPIST Yadira Duque MD LAB BLOOD ORDERABLES Final R esult Performing Organization Address [facility] Co de Phone Number [facility] ([place]) [address] [facility] [place] [address] * hCG, blood, quantitative (05/14/2020 4:11 PM LINE THERAPIST) hCG, quant <5.0 0.0 - 5.0 IUnits/L [facility] ([place]) Comment: Interpretive Data Non- Female premenopausal: < or = 5.0 IUnits/L Men: < 5.0 IUnits/L Weeks of Gestation ? Reference Interval ?? 3 to 6 ? 5.8-31,795 IUnits/L ?? 7 to 10 ? 3,697-186,977 IUnits/L ??12 to 15 ?27,832- 70,791 IUnits/L ??16 to 18 ? 9,040- 58,179 IUnits/L Current Interpretive Data was last revised on 2017. Blood specimen (specimen) 05/14/2020 4:11 PM LINE THERAPIST 05/14/2020 4:20 PM LINE THERAPIST us Yadira Duque MD LAB BLOOD ORDERABLES Final R esult [facility] ([place]) 1 [facility] Department [place] [address] * XR Chest 1 Vw Portable (05/14/2020 3:21 PM LINE THERAPIST) Anatomical Region Laterality Modality Body, Chest N/A Computed Radiogr aphy 05/14/2020 3:23 PM LINE THERAPIST Impressions 05/14/2020 3:24 PM LINE THERAPIST 1. ??Minimal patchy left basilar airspace opacities, which is likely assessment atelectasis. ??No definite evidence of focal consolidation. Electronically signed by: Charly Mendez D.O. Narrative 05/14/2020 3:24 PM LINE THERAPIST EXAMINATION: XR CHEST 1 VIEW ORDERING HEALTHCARE PROVIDER: YADIRA DUQUE HISTORY: COVID-19 Known covid + patient presents via EMS for evaluation of a cough ?? TECHNIQUE: Frontal radiograph of the chest. COMPARISON: None FINDINGS: The heart, mediastinum, and pulmonary vasculature are grossly unremarkable. ??There is no definite evidence of a pneumothorax. There is no definite evidence of focal consolidation or pleural effusion. ??There are minimal patchy left basilar airspace opacities. The osseous structures are grossly unremarkable. Procedure Note Charly Mendez, DO - 05/14/2020 EXAMINATION: XR CHEST 1 VIEW ORDERING HEALTHCARE PROVIDER: YADIRA DUQUE HISTORY: COVID-19 Known covid + patient presents via EMS for evaluation of a cough TECHNIQUE: Frontal radiograph of the chest. COMPARISON: None FINDINGS: The heart, mediastinum, and pulmonary vasculature are grossly unremarkable. There is no definite evidence of a pneumothorax. There is no definite evidence of focal consolidation or pleural effusion. There are minimal patchy left basilar airspace opacities. The osseous structures are grossly unremarkable. IMPRESSION: 1. Minimal patchy left basilar airspace opacities, which is likely assessment atelectasis. No definite evidence of focal consolidation. Electronically signed by: Charly Mendez D.O. Yadira Duque MD IMG XR PROCEDURES Final Resu lt * ECG 12 lead (05/14/2020 3:04 PM LINE THERAPIST) 05/14/2020 3:04 PM LINE THERAPIST Narrative [facility] - 05/15/2020 10:27 AM LINE THERAPIST Vent Rate: 71 bpm RR Interval: 840 msec OR Interval: 169 msec QRS Duration: 88 msec QT Interval: 366 msec QTC Interval: 388 msec P-R-T [place]: 19 - 3 - 24 degrees SINUS RHYTHM NORMAL ECG Electronically Signed By: Giovanny Olguin MD Yadira Duque MD ECG ORDERABLES Final Result [facility] documented in this encounter Visit Diagnoses Diagnosis COVID-19- Primary documented in this encounter Administered Medications Inactive Administered Medications - up to 3 most recent administrations Medication Order MAR Action Action Date Dose Rate Site albuterol HFA (PROVENTIL HFA,VENTOLIN HFA,PROAIR HFA) 90 mcg/actuation inhaler 4 puff 4 puff, inhalation, Once (correspondence school instructor), On Thu05/14/20 at 1551, For 1 dose Given 05/14/2020 4:00 PM LINE THERAPIST 4 puffs benzonatate (TESSALON) capsule 100 mg 100 mg, oral, Once, On Thu05/14/20 at 1552, For 1 dose, Do not crush, chew, cut, dissolve, open or otherwise manipulate tablet/capsule., Indications: CoughIndications:Cough Given 05/14/2020 4:08 PM LINE THERAPIST 100 mg ketorolac (TORADOL) injection 30 mg 30 mg, intravenous, Once, On Thu05/14/20 at 1552, For 1 dose, For Adult IV push, administer over 15 seconds Given 05/14/2020 4:08 PM LINE THERAPIST 30 mg sodium chloride 0.9% bolus 1,000 mL 1,000 mL, intravenous, Once, On Thu05/14/20 at 1552, For 1 dose New Bag 05/14/2020 4:08 PM LINE THERAPIST 1,000 mL documented in this encounter Discontinued Medications Medication Sig Discontinue Reason Start Date End Da te albuterol HFA (PROVENTIL HFA,VENTOLIN HFA,PROAIR HFA) 90 mcg/actuation inhalerIndications:Ac melany Asthma Attack Inhale 2 puffs as needed for wheezing 05/14/2020 albuterol 2.5 mg /3 mL (0.083 %) nebulizer solutionIndications:A cute Asthma Attack Take 2.5 mg by nebulization every 6 (six) hours as needed for wheezing 05/14/2020 documented as of this encounter Active and Recently Administered Medications Times are shown in LINE THERAPIST. Scheduled Medication Order 05/12/2020 05/13/2020 05/14/2020 albuterol HFA (PROVENTIL HFA,VENTOLIN HFA,PROAIR HFA) 90 mcg/actuation inhaler 4 puff (COMPLETED) 4 puff, inhalation, Once (correspondence school instructor), On Thu05/14/20 at 1551, For 1 dose 1600 (Given - Provid er: Garima Kenney, MARY) benzonatate (TESSALON) capsule 100 mg (COMPLETED) 100 mg, oral, Once, On Thu05/14/20 at 1552, For 1 dose, Do not crush, chew, cut, dissolve, open or otherwise manipulate tablet/capsule., Indications: Cough 1608 (Given - Provid er: Gita Wang RN) ketorolac (TORADOL) injection 30 mg (COMPLETED) 30 mg, intravenous, Once, On Thu05/14/20 at 1552, For 1 dose, For Adult IV push, administer over 15 seconds 1608 (Given - Provid er: Gita Wang RN) sodium chloride 0.9% bolus 1,000 mL (COMPLETED) 1,000 mL, intravenous, Once, On Thu05/14/20 at 1552, For 1 dose 1608 (New Bag - Prov ider: Gita Wang, RN)1735 (Stopped - Provider: Gita Wang, SHERIDAN) documented in this encounter Care Teams School Examiner Relationship Specialty Start Date End Date Jessica Navarro NP [address] [place] [address] PCP - General 07/26/19 08/22/20 documented as of this encounter
--- OUTSIDE RECORDS SUMMARY | 2024-04-14 18:34 | XMS_ITS | Encounter Summary ---
Author Organization [facility] Healthcare Address [address] [place] [address] Care Team Providers Care Bookkeeping Machine Mechanic Name Role Phone Jessica Navarro NP Primary Care Provider [phone] Reason for Visit * Reason Comments PT Treatment Encounter Details Date Type Department Care Team (Late st Contact Info) Description 06/22/2020 10:45 AM INSTRUCTOR ADJUNCT PHARMACY TECHNICIAN Therapy [facility] Physical Therapy [address] [place] [id number] Christi Chanel, FERRY CAPTAIN Nontraumatic rupture of tendons of left foot [...] this encounter Progress Notes * Christi Chanel, FERRY CAPTAIN - 06/22/2020 10:45 AM CST PT Daily Treatment Note Lilli Danielle 1995 Subjective: Pt states she has done well since last treatment. Pain: 4/10 L foot Objective: Added BAPS board today. Issued green tband to be used with ROM at home. Treatment Provided: Nustep L6 6 min Standing with bilat feet on rocker board fwd/bkwd x 15 then side to side x 15 Standing on floor SLS L x 5 for 15 sec each with min UE support Bilat toe raises x 15 Bilat DF, rocking back on heels x 15 Red theraband resisted DF/PF, EV/INV x 15 each Sitting BAPS board L3, fwd/bkwd x 10, Lateral x 10 and circles CW and CCW x 10 each Sitting heel slides x 10?? Then PF with toe push off x 15 Sitting towel curls x 20 Sitting with leg extended, ankle over edge of table: Gentel STM manual to medial aspect of left foot/ankle and along incision line. Gentle PROM into DF/PF, EV/INV Gentle distraction of the calcaneus and some PROM into DF, EV and INV x 7 each Anterior glide of talus* PROM of great toe into flexion and extension Manually resisted left great toe flexion x 10 and extension x 10? Gentle IASTM medial plantar aspect of left foot* Rock tape medial L foot interior to scar, split end - one to medial great toe and one to plantar surface of the L great toe to 2nd digit. ?? HEP: Sitting rocker board DF/PF x 10 (gave as HEP) Sitting heel slides x 10 (gave as HEP) Sitting attempting towel curling x 10 (gave as HEP) Instructed pt to cont her previous HEP of ankle circles, and yellow theraband ex.?? 06/19/20:Instructed pt to add SLS on the left at home.? Treatment Ideas: Left ankle gentle stretching, PROM and mobilization Soft tissue mobilization as tolerated AROM/strengthening, BAPS board, ankle board sitting and progress to partial wt bearing and standing Stair ex as tolerated, leg press Standing balance ex, glue foam for stabilty Modalities as indicated ktape as indicated ?? Assessment: Goals are ongoing Pt tolerated treatment well Plan: Continue to see pt per POC Start Time: 5 End Time:1124 Christi Chanel, TRISTIN RUCTOR ADJUNCT PHARMACY TECHNICIAN documented in this encounter Plan of Treatment Not on file documented as of this encounter Visit Diagnoses Diagnosis Nontraumatic rupture of tendons of left foot and ankle- Primary documented in this encounter Care Teams Bookkeeping Machine Mechanic Relationship Specialty Start Date End Date Jessica Navarro NP [address] [place] [address] PCP - General 07/26/19 08/22/20 documented as of this encounter
--- OUTSIDE RECORDS SUMMARY | 2024-04-14 18:34 | XMS_ITS | Encounter Summary ---
Author Organization [facility] Healthcare Address [address] [place] [address] Care Team Providers Care Insecticide Mixer Name Role Phone Jessica Navarro NP Primary Care Provider [phone] Reason for Visit * Reason Comments PT Treatment Encounter Details Date Type Department Care Team (Late st Contact Info) Description 06/13/2020 8:30 AM ANTHROPOLOGY LECTURER Therapy [facility] Physical Therapy [address] [place] [id number] Jaye Zayas, PT Nontraumatic rupture of tendons [...] Progress Notes * Jaye Zayas, PT - 06/13/2020 8:30 AM CST PT Daily Treatment Note Lilli Santos 1995 Subjective: Pt states he pain is about a 6/10 this morning. She state she just woke up with it being that sore. Pt states she has been working on her ex. Pt states the bottom strip of tape seemed to help but the one over incision is uncomfortable since her scar is very sensitive. Pain: 10/04 Objective: Working with pt on some gentle PROM/stretching and strengthening. Performed some IASTM today and re-configured the ktape. Treatment Provided: Sitting with leg extended, ankle over edge of table: Gentle PROM into DF/PF, EV/INV Gentle distraction of the calcaneus and some PROM into DF Anterior glide of talus PROM of great toe into flexion and extension Manually resisted left great toe flexion x 10 and extension x 10 Sitting BAPS board, fwd/bkwd x 10, Lateral x 10 and circles CW and CCW x 10 each Sitting heel slides x 10 Then PF with toe push off x 15 Gentle IASTM medial plantar aspect of left foot Rock tape medial of left great toe with inferior pull along medial border of foot, one C strip under arch of foot avoiding scar area. HEP: Sitting rocker board DF/PF x 10 (gave as HEP) Sitting heel slides x 10 (gave as HEP) Sitting attempting towel curling x 10 (gave as HEP) Instructed pt to cont her previous HEP of ankle circles, and yellow theraband ex. ?? Treatment Ideas: Left ankle gentle stretching, PROM and mobilization Soft tissue mobilization as tolerated AROM/strengthening, BAPS board, ankle board sitting and progress to partial wt bearing and standing Stair ex as tolerated, leg press Standing balance ex, glue foam for stabilty Modalities as indicated ktape as indicated ?? Assessment: Pt tolerates treatment well but continues to be very tender and sensitive along the medial foot/ankle area. She demonstrates difficulty with control of the left great toe and considerableweakness. Plan: Cont PT as per POC. Start Time: 830 End Time:915 Jaye Zayas PT, DPT ROPOLOGY LECTURER documented in this encounter Plan of Treatment Not on file documented as of this encounter Visit Diagnoses Diagnosis Nontraumatic rupture of tendons of left foot and ankle- Primary documented in this encounter Care Teams Insecticide Mixer Relationship Specialty Start Date End Date Melanie, Jessica Pinto NP [address] [place] [address] PCP - General 07/26/19 08/22/20 documented as of this encounter
--- OUTSIDE RECORDS SUMMARY | 2024-04-14 18:34 | XMS_ITS | Encounter Summary ---
Author Organization [facility] Healthcare Address [address] [place] [address] Care Team Providers Care Cripple Cutter Name Role Phone Jessica Navarro NP Primary Care Provider [phone] Reason for Visit * Reason Comments PT Treatment Encounter Details Date Type Department Care Team (Late st Contact Info) Description 06/19/2020 9:15 AM SINGING WAITER OR WAITRESS Therapy [facility] Physical Therapy [address] [place] [id number] Jaye Zayas, PT Nontraumatic rupture of tendons [...] Progress Notes * Jaye Zayas, PT - 06/19/2020 9:15 AM CST PT Daily Treatment Note Lilli Santos 1995 Subjective: Pt states her left foot does not seem to be feeling much better. PT states her foot wasmore swollen yesterday. She states all she did was go out to eat. She states the tape method last time, pulling across the top was not as effective. Pt states her left ankle also feels like it wants to roll inward some of the time. She asked if the ankle could be taped to try to prevent that motion. Pain: 09/03 Objective: Started some wt bearing ex this date Treatment Provided: Sitting with leg extended, ankle [...] flexion x 10 and extension x 10 Standing with left foot on rocker board, PWB PF/DF and EV/INV x 10 Standing with bilat feet on rocker board fwd/bkwd x 15 then side to side x 15 Standing on floor SLS x 5 for 15 sec each with no UE support Bilat toe raises x 15 Bilat DF, rocking back on heels x 15 Red theraband resisted DF/PF, EV/INV x 15 each* Sitting BAPS board L3, fwd/bkwd x 10, Lateral x 10 and circles CW and CCW x 10 each* Sitting heel slides x 10 * Then PF with toe push off x 15 Sitting towel curls x 20 Gentle IASTM medial plantar aspect of left foot* Rock tape medial of left great toe with inferior pull along medial border of foot, 2 small C stripsunder arch of foot avoiding scar area. One strip lateral aspect of ankle pulling into eversion. HEP: Sitting rocker board DF/PF x 10 (gave as HEP) Sitting heel slides x 10 (gave as HEP) Sitting attempting towel curling x 10 (gave as HEP) Instructed pt to cont her previous HEP of ankle circles, and yellow theraband ex. 06/19/20:Instructed pt to add SLS on the left at home. ?? Treatment Ideas: Left ankle gentle stretching, PROM and mobilization Soft tissue mobilization as tolerated AROM/strengthening, BAPS board, ankle board sitting and progress to partial wt bearing and standing Stair ex as tolerated, leg press Standing balance ex, glue foam for stabilty Modalities as indicated ktape as indicated ?? Assessment: Pt tolerated the wt bearing ex well with mild reports of pain. She will benefit from continued therapy to address ongoing goals. Plan: Cont PT as per POC. Try to progress to some modified wt bearing ex next visit as pt tolerates. Start Time:915 End Time:1000 Jaye Zayas PT, DPT ING WAITER OR WAITRESS documented in this encounter Plan of Treatment Not on file documented as of this encounter Visit Diagnoses Diagnosis Nontraumatic rupture of tendons of left foot and ankle- Primary documented in this encounter Care Teams Cripple Cutter Relationship Specialty Start Date End Date Jessica Navarro NP [address] [place] [address] PCP - General 07/26/19 08/22/20 documented as of this encounter
--- OUTSIDE RECORDS SUMMARY | 2024-04-14 18:34 | XMS_ITS | Encounter Summary ---
Author Organization [facility] Address [address] [address] Care Team Providers Care Maintenance Parts Technician Name Role Phone Jessica Navarro NP Primary Care Provider Reason for Visit * Reason Comments Post-op Post-op Encounter Details Date Type Department Care Team (Late st Contact Info) Description 04/30/2020 9:40 AM ASSOCIATE PROFESSOR OF EDUCATION Office Visit [facility] [address] [place] [address] Kishan Broussard MD [address] [address] Nontraumatic rupture of tendons of left foot [...] Binge Drinking Not on file 06/27 Comments Unknown Sex and Gender Information Value Date Recorded Sex Assigned at Not on file Legal Sex Female 11:31 AM CDT Gender Identity Not on file Sexual Orientation Not on file documented as of this encounter Last Filed Vital Signs Vital Sign Reading Time Taken Comments Blood Pressure - - Pulse - - Temperature 36.1 ??C (96.9 ??F) 04/30/2020 10:[address] Respiratory Rate - - Oxygen Saturation - - Inhaled Oxygen Concentration - - Weight 93 kg (205 lb) 04/30/2020 10:37 AM ASSOCIATE PROFESSOR OF EDUCATION Height 160 cm (5' 3 ) 04/30/2020 10:37 AM ASSOCIATE PROFESSOR OF EDUCATION Body Mass Index 36.31 04/30/2020 10:37 AM ASSOCIATE PROFESSOR OF EDUCATION documented in this encounter Progress Notes * Kishan Broussard MD - 04/30/2020 9:40 AM CST Patient returns today 13 days postop. She still has complaints numbness in the plantar aspect of the great toe as well as 2nd toe. She has some numbness in the heel region adjacent to the incision additionally. Incision is benign. Steri-Strips have been removed. There is no wound separation or erythema/drainage. Neurovascular status is intact. There is no evidence of complication. There is decreased sensation in the lateral plantar distribution but not medial. Overall range of motion is 60% normal. There is no triggering. Edema is grade 1. Diagnosis-status post left great trigger toe release/flexor hallucis longus repair. Jrqm-[id number]-Lxfpv removal. Walking boot p.r.n.. Elevate/ice p.r.n.. Return to this office in 3 weeks. CIATE PROFESSOR OF EDUCATION documented in this encounter Plan of Treatment Not on file documented as of this encounter Visit Diagnoses Diagnosis Nontraumatic rupture of tendons of left foot and ankle- Primary documented in this encounter Care Teams Maintenance Parts Technician Relationship Specialty Start Date End Date Jessica Navarro NP [address] [place] [address] PCP - General 07/26/19 08/22/20 documented as of this encounter
--- OUTSIDE RECORDS SUMMARY | 2024-04-14 18:34 | XMS_ITS | Encounter Summary ---
Author Organization [facility] Healthcare Address [address] [place] [address] Care Team Providers Care Brim Curler Name Role Phone Jessica Navarro Millie SUNG Primary Care Provider [phone] Reason for Visit * Reason Comments PT Initial Eval * Consultation (Routine) - Closed Specialty Diagnoses / Procedures Referred By Jonas t Referred To Contact Physical Therapy Diagnoses Nontraumatic rupture of tendons of left foot and ankle Left foot pain Kishan Broussard MD [address] [place] [address] Phone: tel: fax: [address] [phone] Referral ID Status Reason Start Date Expiration Date V isits Requested Visits Authorized [id number] Closed Specialty Services Required 05/24/2020 06/23/2021 9 9 Encounter Details Date Type Department Care Team (Late st Contact Info) Description 06/12/2020 3:30 PM BOOM SUPERVISOR Therapy [facility] Physical Therapy [address] [place] [id number] Kishan Broussard MD [address] [place] [address] Jaye Zayas, PT Nontraumatic rupture of tendons of left foot and ankle (Primary Dx); Left foot pain Social History Tobacco Use Types Packs/Day [...] Progress Notes * Jaye Zayas, PT - 06/12/2020 3:30 PM CST Physical Therapy Initial Evaluation Ankle Lilli Santos 1995 25 y.o. female Kishan Broussard MD [address] [place] [address] @[email or web address]@ PT Initial Eval Subjective: History of Present Illness: Pt is s/p left foot surgery on 04/17/20, release of left trigger toe onthe left great toe. Pt state she also had a torn tendon that was repaired but she is not sure whichone. She states she was allowed some wt bearing right after surgery but she used crutches for a while. She states she has been off the crutches for several weeks and she was wearing a CAM walker bootfor a few weeks. She states she has been out of the boot for a few weeks. She states she can get into a slip on casual shoe but cannot get her foot into her tennis shoes yet. Pt states she still has numbness in her left bit toe and second toe. She states the tendon in the arch of her foot is bulging and it is hard. She states when she tries to bend her left toes she continues to get popping whichis what she had prior to her surgery. LEFS Current Symptoms:Left foot pain, swelling and increased sensitivity to pressure/touch. Pain: Pain Location: left big toe and medial aspect of left foot/arch. Current pain ratin/10 when sitting Worst pain rating.:8.5/10 Best pain ratin/10 Aggravating Factors:Standing, walking Alleviating Factors:sitting rest, compression socks, ice Function: Prior Level of Function: Current Level of Function: Social: single level home with 3 steps to get in Occupatin: Student Patient Goals: Decrease the pain and swelling, improve strength and get rid of the numbness. Objective: Per chart review the operative report reveals the left flexor hallucis longus was paritally torn and was repaired during surgery. Gait:Pt ambulates with some decreased stance time on the left LE. She demosntrates good heel strikebut decreased foot flat and toe off. She tends to bear more weight through the lateral border of the left especially with transition from heel strike to toe off. Ankle AROM: Left Right Dorsiflexion -5 deg 8 deg Plantarflexion 40 deg 42 deg Inversion 20 deg 28 deg Eversion 15 deg 38 deg Ankle PROM: Left Right Dorsiflexion neutral 12 deg Plantarflexion 40 deg 42 deg Inversion 20 deg 28 deg Eversion 15 deg 38 deg. Strength: Left Right Dorsiflexion 2+/5 5/5 Plantarflexion 2+/5 5/5 Inversion 2-/5 5/5 Eversion 2-/5 5/5 Toe flexor strength on the left is decreased and pt is unable to perform any towel curling. Edema/Girth:ankle figure 8 circumference: Right 49.0 cm, Left 50.0 cm. Palpation:Pt is tender with light palpation around the medial malleolus on the left Balance: deferred due to pain. Treatment Provided: Gently PROM/stretching to left ankle Some gentle calcaneal mobilization Sitting active DF/PF x 10 Sitting rocker board DF/PF x 10 (gave as HEP) Sitting heel slides x 10 (gave as HEP) Sitting attempting towel curling x 10 (gave as HEP) Instructed pt to cont her previous HEP of ankle circles, and yellow theraband ex. Rock tape along left medial ankle over incision, then another strip around the arch plantar aspect of the foot. Treatment Ideas: Left ankle gentle stretching, PROM and mobilization Soft tissue mobilization as tolerated AROM/strengthening, BAPS board, ankle board sitting and progress to partial wt bearing and standing Stair ex as tolerated, leg press Standing balance ex, glue foam for stabilty Modalities as indicated ktape as indicated Assessment/Plan: Assessment Impairments: abnormal gait, impaired balance, lacks appropriate home exercise program, weight-bearing intolerance, impaired physical strength, edema, pain with function, abnormal or restricted ROM, flexibility, sensation Prognosis: good Goals STG 1:: Pt able to demonstrate indep with HEP in 3 weeks. STG 2:: Pt able to report a decrease in subjective level of pain at worst to 6/10 or less in 3 weeks. STG 3:: Pt able to demonstrate a decrease in edema by .5 cm in 3 weeks. STG 4:: Pt able to demonstrate improved left ankle AROM in 3 weeks by 3-5 degrees in all planes. LTG 1:: Pt able to report a decrease in subjective level of worse pain to 4/10 or less and in best pain to 2/10 or less by DC. LTG 2:: Pt able to demonstrate improved AROM in the left ankle by 7-10 degrees in all planes by DC. LTG 3:: Pt able to demonstrate improved strength in the left ankle by DC. LTG 4:: Pt able to demonstrate normalized gait pattern in the left knee by DC. LTG 5:: Pt able to report improvement on the LEFS to 50-70/80 by DC. Plan Start time: 1525 End time: 1615 Therapy options: will be seen for skilled therapy services Planned modality interventions: thermotherapy (hydrocollator packs), cryotherapy, ultrasound Other planned modality interventions: others as indicated PRN Planned therapy interventions: strengthening, home exercise program, stretching, therapeutic activities, joint mobilization, balance/weight-bearing training, Kinesiotaping, manual therapy, flexibility, functional ROM exercises, soft tissue mobilization, gait training Other planned therapy interventions: others as indicated PRN Discussed with: patient Plan details: Plan to see pt 3x a week for a total of 9 visits. Sindhu Zayas PT , DPT , [employer] SUPERVISOR documented in this encounter Plan of Treatment Not on file documented as of this encounter Visit Diagnoses Diagnosis Nontraumatic rupture of tendons of left foot and ankle- Primary Left foot pain Pain in soft tissues of limb documented in this encounter Orders Outpatient Referral Count Last Ordered Date Fir st Ordered Date AMB REFERRAL ORDER TO PHYSICAL THERAPY 1 documented in this encounter Care Teams Brim Curler Relationship Specialty Start Date End Date Jessica Navarro NP [address] [place] [id number] PCP - General 07/26/19 08/22/20 documented as of this encounter
--- OUTSIDE RECORDS SUMMARY | 2024-04-14 18:34 | XMS_ITS | Encounter Summary ---
Author Organization [facility] Medical Group Address [address] [address] Care Team Providers Care Body Wirer Name Role Phone Jessica Navarro NP Primary Care Provider Reason for Visit * Reason Comments Post-op Follow-up Encounter Details Date Type Department Care Team (Late st Contact Info) Description 06/21/2020 9:10 AM LIFE UNDERWRITER Office Visit [facility] [address] [place] [address] Kishan Broussard MD [address] [address] Nontraumatic rupture of tendons of left foot [...] Pressure - - Pulse - - Temperature 36.4 ??C (97.6 ??F) 06/21/2020 9:07 AM CS T Respiratory Rate - - Oxygen Saturation - - Inhaled Oxygen Concentration - - Weight 88.5 kg (195 lb) 06/21/2020 9:07 AM LIFE UNDERWRITER Height 160 cm (5' 3 ) 06/21/2020 9:07 AM LIFE UNDERWRITER Body Mass Index 34.54 06/21/2020 9:07 AM LIFE UNDERWRITER documented in this encounter Progress Notes * Kishan Broussard MD - 06/21/2020 9:10 AM CST Patient attends today just over 2 months post left foot great trigger toe release. She is still in physical therapy (actually just started last week due to delays). She still walking a little bit on the low side of her foot and has occasional popping. Examination confirms 80% normal motion with no locked down or palpable popping. Diagnosis-status post left trigger toe release/tendon repair. Plan-continue physical therapy. Return to this office in 4 weeks. UNDERWRITER documented in this encounter Plan of Treatment Not on file documented as of this encounter Visit Diagnoses Diagnosis Nontraumatic rupture of tendons of left foot and ankle- Primary documented in this encounter Care Teams Body Wirer Relationship Specialty Start Date End Date Jessica Navarro NP [address] [place] [address] PCP - General 07/26/19 08/22/20 documented as of this encounter
--- OUTSIDE RECORDS SUMMARY | 2024-04-14 18:34 | XMS_ITS | Encounter Summary ---
Author Organization [facility] Address [address] [place] [address] Care Team Providers Care Lehr Operator Name Role Phone MelanieJohnJessicalambert Pinto NP Primary Care Provider Encounter Details Date Type Department Care Team (Late st Contact Info) Description 04/17/2020 7:47 AM REFINED SYRUP OPERATOR Anesthesia Event [facility] Operating Room [address] [place] [address] Jose Corral MD PhD [address] [place] [address] Liset Byers CRNA 1 [place] [address] Anesthesia Record Procedure Summary Procedure Name Responsible Anesthesiologist Anesthesia Start Time Anesthesia Stop Time RELEASE TRIGGER TOE-LEFT (Left: Toes) Jose Corral MD PhD 04/17/20 0747 04/17/20 0931 Events Date Time Event Comment 04/17/2020 0709 0747 In Room 0747 An Start 0747 An Start Data 0750 An Induction The patient was reevaluated immediately before moderate or deep sedation use and before anesthesia induction. 0750 An LMA 0750 Anesthesia Ready 0810 Proc Start 0812 Incision Start 0917 Airway Removed 0923 an stop data 0923 Proc Fin 0925 Out of Room 0931 Handoff to RN I completed my handoff [...] the time of handoff: No value filed. 0931 An Stop Meds Name Total midazolam 2 mg fentaNYL 100 mcg propofol 200 mg dexamethasone 10 mg ondansetron 4 mg lidocaine 2 % PF 100 mg bupivacaine 0.25 % PF 25 mL Lactated Ringer's (LR) infusion 1,100 mL * Agents Name O2 Air Sevoflurane Inspired Sevoflurane * Blood No blood administrations on file. Lines, Drains, and Airways Type Details Placement Removal Peripheral IV Placement Date: 04/17/20; Placement Time: 0703; Catheter Size: 20 G; Orientation: Right, Posterior; Location: Hand; Site Prep: Chlorhexidine; Inserted by: Chris; Insertion Attempts: 1; Patient Tolerance: Tolerated well; Removal Date: 04/17/20; Removal Time: 1137 04/17/20 0703 by Brigida Grier RN 04/17/20 1137 by Brigida Grier RN Supraglottic Airway Placement Date: 04/17/20; Placement Time: 0750 (created via procedure documentation); Mask Ventilation: 0; Size: 3; Insertion Attempts: 1; Removal Date: 04/17/20; Removal Time: 0917 04/17/20 0750 by Lsiet Byers CRNA 04/17/20 0917 by Liset Byers CRNA RETIRED Surgical Site 04/17/20; 0815; [place]; Foot; 05/14/20; 1528; Removal date unknown/not present on admission 04/17/20 0815 by Berna Forrest, SHERIDAN 05/14/20 1528 by Gita Butcher RN documented in this encounter Social History Tobacco [...] OR Notes * Anesthesia Postprocedure Evaluation - Jose Corral MD PhD - 04/17/2020 11:34 AM CST Patient: Lilli Santos Procedure Summary Date: 04/17/20 Room / Location: [address] OPERATING ROOM Anesthesia Start: 746 Anesthesia Stop: 930 Procedure: RELEASE TRIGGER TOE-LEFT (Left Toes) Diagnosis: Acquired deformity of left toe (Acquired deformity of left toe [M20.62]) Providers: Kishan Broussard MD Responsible Provider: Jose Corral MD PhD Anesthesia Type: MAC ASA Status: 2 Anesthesia Type: MAC Last vitals BP 131/79 Pulse 81 Temp 36.2 ??C (97.1 ??F) (Temporal) Resp 18 SpO2 99% Anesthesia Post Evaluation Patient location during evaluation: PACU Patient participation: complete - patient participated Level of consciousness: fully awake Pain score: 3 Pain management: adequate Airway patency: adequate Evidence of recall: no Anesthetic complications: no Cardiovascular status: acceptable Respiratory status: acceptable Hydration status: acceptable Pt is: normothermic Nausea/Vomiting status: none NED SYRUP OPERATOR * Anesthesia Procedure Notes - Jose Corral MD PhD - 04/17/2020 10:04 AM CSTAssociated Order(s): Peripheral Block Peripheral Block Patient location during procedure: block room Start time: 04/17/2020 9:54 AM End time: 04/17/2020 10:04 AM Reason for block: primary anesthetic Block type: single shot Laterality: left Block type: sciatic nerve block - popliteal Other block type: + saphenous Staff: Placed by: Anesthesiologist: Jose Corral MD PhD Procedure prep: Preprocedure checklist: patient identified, procedure contraindications assessed, site marked, procedure consent, surgical consent, IV checked, risks, benefits and alternatives discussed, monitors and equipment checked and timeout performed Patient position: left lateral decubitus Procedure performed while patient: sedate with meaningful contact Monitoring: ECG, oximetry and blood pressure Supplemental O2: nasal cannula Prep solution: chlorhexidine/alcohol PPE: provider hat/mask Skin infiltrated with lidocaine 1%: yes Peripheral nerve block: Technique: ultrasound guided Needle type: pencil-tipped Needle gauge: 22 G Needle length: 100 mm Injection assessment: injection made incrementally with constant monitoring, local visualized surrounding nerve on ultrasound, negative aspiration for heme, no paresthesias noted, normal resistance to injection and see flowsheet for medication details Assessment: Block success: full evaluation pending Events: patient tolerated procedure well with no complications NED SYRUP OPERATOR * Anesthesia Procedure Notes - Liset Byers CRNA - 04/17/2020 7:55 AM CSTAssociated Order(s): Airway Airway Patient location: OR Urgency: elective Date/time: 04/17/2020 7:50 AM Indications for airway management: anesthesia Difficult airway: no Staff: Placed by: ORGANIZATIONAL PSYCHOLOGIST: Liset Byers CRNA Emergent airway documentation: Risks and benefits discussed: yes Consent obtained: yes Consent given by: patient Airway prep: Preoxygenated: yes Mask difficulty assessment: 0 - not attempted Spontaneous ventilation during airway: present Sedation level during airway: GA Final airway details: Final airway type: supraglottic airway Final supraglottic airway: unique SGA size: 3 Number of attempts: 1 NED SYRUP OPERATOR * Anesthesia Preprocedure Evaluation - Jose Corral MD PhD - 04/17/2020 7:05 AM CST Images from the original note were not included. Anesthesia Evaluation Lilli Santos is a 25 y.o. female Procedure(s): RELEASE TRIGGER TOE-LEFT Pre-Op Diagnosis Codes: * Acquired deformity of left toe [M20.62] HISTORY Past Medical History Information obtained from: patient and chart. Neurological Neuro/Psych system: negative Cardiovascular Cardiac system: negative Respiratory + Asthma + Current smoker Patient refrained from smoking on day of surgery. Hepatic / Heme Hepatic/Heme system: negative Gastrointestinal + GERD Renal / Renal/ system: negative Endocrine / Other Endocrine/Other system: negative Day of Surgery assessments + Possibility of assessed - HCG negative (see labs). Patient Active Problem List Diagnosis ??? Acquired deformity of left toe Past Medical History: Diagnosis Date ??? Anxiety ??? Asthma ??? GERD (gastroesophageal reflux disease) Past Surgical History: Procedure Laterality Date ??? BREAST SURGERY breast reduction ??? THYROID SURGERY OB History No obstetric history on file. No Known Allergies Med List Status: Nurse Complete Set By: Brigida Grier RN at 04/17/2020 6:51 AM Taking? Last Dose Start Date End Date Provider albuterol 2.5 mg /3 mL (0.083 %) nebulizer solution More than a month -- -- ProviderSole MD albuterol HFA (PROVENTIL HFA,VENTOLIN HFA,PROAIR HFA) 90 mcg/actuation inhaler More than a month ---- ProviderSole MD hydrOXYzine (VISTARIL) 25 mg capsule 04/13/2020 -- -- Sole Reardon MD TiZANidine (ZANAFLEX) 2 mg capsule 04/10/2020 -- -- Provider, MD Sole Current Facility-Administered Medications: ??? acetaminophen (TYLENOL) tablet 1,000 mg, 1,000 mg, oral, Once ??? celecoxib (CeleBREX) capsule 400 mg, 400 mg, oral, Once ??? Lactated Ringer's (LR) infusion, 30 mL/hr, intravenous, Continuous, Last Rate: 30 mL/hr at 04/17/20 0704, 30 mL/hr at 04/17/20 0704 ??? sodium chloride 0.9% flush 0.5-20 mL, 0.5-20 mL, intra-catheter, PRN Social History Tobacco Use Smoking Status Current Every Day Smoker ??? Packs/day: 1.00 ??? Types: Cigarettes Substance and Sexual Activity Alcohol Use Never ??? Frequency: Never Substance and Sexual Activity Drug Use Never History reviewed. No pertinent family history. Vitals: 04/17/20 0645 BP: (!) 142/102 Pulse: 81 Resp: 18 Temp: 36.5 ??C (97.7 ??F) SpO2: 98% PT: No results found for requested labs within last 720 hours. INR: No results found for requested labs within last 720 hours. APTT: No results found for requested labs within last 720 hours. Hgb A1C: No results found for requested labs within last 720 hours. CBC RBC: No results found for requested labs within last 720 hours. RDW: No results found for requested labs within last 720 hours. MCHC: No results found for requested labs within last 720 hours. MCH: No results found for requested labs within last 720 hours. MCV: No results found for requested labs within last 720 hours. Hct: No results found for requested labs within last 720 hours. Hgb: No results found for requested labs within last 720 hours. WBC: No results found for requested labs within last 720 hours. MPV: No results found for requested labs within last 720 hours. Platelets: No results found for requested labs within last 720 hours. RDW CV: No results found for requested labs within last 720 hours. RDW Sd: No results found for requested labs within last 720 hours. BMP Glucose: No results found for requested labs within last 720 hours. Calcium: No results found for requested labs within last 720 hours. Sodium: No results found for requested labs within last 720 hours. Potassium: No results found for requested labs within last 720 hours. CO2: No results found for requested labs within last 720 hours. Chloride: No results found for requested labs within last 720 hours. BUN: No results found for requested labs within last 720 hours. Creatinine: No results found for requested labs within last 720 hours. DOS Physical Exam Medical history, medications, and allergies reviewed. Attestation: I endorse the findings of the anesthesia pre-evaluation assessment dated: 04/17/2020. Airway Exam: Mallampati: II Cervical ROM: FROM TM distance: normal Jaw ROM: full Cardiovascular Exam: Rate: regular Rhythm: regular Pulmonary Exam: LCTA, bilat EENT Exam: trachea midline Dental Exam: Appears intact Current state: Patient's current state is cooperative and interactive. Anesthesia Plan ASA 2 Planned anesthesia: MAC Induction: Induction: intravenous. Postoperative Plan: Postoperative administration opioids intended. No postoperative mechanical ventilation intended. Patient's planned disposition post procedure is Outpatient. Informed Consent: Discussed plan with ORGANIZATIONAL PSYCHOLOGIST and attending. Anesthesia plan and risks discussed with patient. Consent and Attending signature: I and/or my designee have discussed the anesthesia plan, benefits, possible alternatives, parental presence at time of induction (if indicated), and clinically relevant risks that may include dental injury, unintentional awareness, and/or other complications. The patient and/or parent/legal guardian understand, and agree to proceed. All questions answered. NED SYRUP OPERATOR documented in this encounter Plan of Treatment Not on file documented as of this encounter Procedures Procedure Name Priority Date/Time Associated Diagnosis Comments ANESTHESIA PERIPHERAL BLOCK Routine 04/17/2020 10:04 AM REFINED SYRUP OPERATOR VT AN ELECTIVE SUPRAGLOTTIC AIRWAY Routine 04/17/2020 7:55 AM REFINED SYRUP OPERATOR documented in this encounter Results * Peripheral Block (04/17/2020 10:04 AM REFINED SYRUP OPERATOR) Narrative Jose Corral MD PhD - 04/17/2020 10:04 AM REFINED SYRUP OPERATOR Jose Corral MD PhD ? 04/17/2020 10:05 AM Peripheral Block Patient location during procedure: block room Start time: 04/17/2020 9:54 AM End time: 04/17/2020 10:04 AM Reason for block: primary anesthetic Block type: single shot Laterality: left Block type: sciatic nerve block - popliteal Other block type: + saphenous Staff: Placed by: Anesthesiologist: Jose Corral MD PhD Procedure prep: Preprocedure checklist: patient identified, procedure contraindications assessed, site marked, procedure consent, surgical consent, IV checked, risks, benefits and alternatives discussed, monitors and equipment checked and timeout performed Patient position: left lateral decubitus Procedure performed while patient: sedate with meaningful contact Monitoring: ECG, oximetry and blood pressure Supplemental O2: nasal cannula Prep solution: chlorhexidine/alcohol PPE: provider hat/mask Skin infiltrated with lidocaine 1%: yes Peripheral nerve block: Technique: ultrasound guided Needle type: pencil-tipped Needle gauge: 22 G Needle length: 100 mm Injection assessment: injection made incrementally with constant monitoring, local visualized surrounding nerve on ultrasound, negative aspiration for heme, no paresthesias noted, normal resistance to injection and see flowsheet for medication details Assessment: Block success: full evaluation pending Events: patient tolerated procedure well with no complications Jose Corral MD PhD ANESTHESIA ORDERABLES F inal Result * VT AN ELECTIVE SUPRAGLOTTIC AIRWAY (04/17/2020 7:55 AM REFINED SYRUP OPERATOR) Narrative Liset Byers CRNA - 04/17/2020 7:55 AM REFINED SYRUP OPERATOR Liset Byers CRNA ? 04/17/2020 ??7:56 AM Airway Patient location: OR Urgency: elective Date/time: 04/17/2020 7:50 AM Indications for airway management: anesthesia Difficult airway: no Staff: Placed by: ORGANIZATIONAL PSYCHOLOGIST: Liset Byers CRNA Emergent airway documentation: Risks and benefits discussed: yes Consent obtained: yes Consent given by: patient Airway prep: Preoxygenated: yes Mask difficulty assessment: 0 - not attempted Spontaneous ventilation during airway: present Sedation level during airway: GA Final airway details: Final airway type: supraglottic airway Final supraglottic airway: unique SGA size: 3 Number of attempts: 1 Jose Corral MD PhD ANESTHESIA ORDERABLES F inal Result documented in this encounter Visit Diagnoses Not on filedocumented in this encounter Administered Medications Inactive Administered Medications - up to 3 most recent administrations Medication Order MAR Action Action Date Dose Rate Site bupivacaine (MARCAINE) 0.25 % (2.5 mg/mL) preservative free injection As needed, Starting on Thu04/17/20 at 1004, Anesthesia Intra-op Given 04/17/2020 10:04 AM REFINED SYRUP OPERATOR 25 mL dexAMETHasone (DECADRON) injection solution intravenous, Administer over 2 Minutes, As needed, Starting on e 04/17/20 at 0757, Anesthesia Intra-op Given 04/17/2020 7:57 AM REFINED SYRUP OPERATOR 10 mg fentaNYL (SUBLIMAZE) preservative free injection intravenous, As needed, Starting on Thu04/17/20 at 0754, Anesthesia Intra-op Given 04/17/2020 8:12 AM REFINED SYRUP OPERATOR 25 mcg Given 04/17/2020 8:10 AM REFINED SYRUP OPERATOR 25 mcg Given 04/17/2020 7:58 AM REFINED SYRUP OPERATOR 25 mcg Lactated Ringer's (LR) infusion 30 mL/hr, intravenous, Continuous, Starting on e 04/17/20 at 0715, Pre-Op New Bag 04/17/2020 9:01 AM REFINED SYRUP OPERATOR Rate/Dose Verify 04/17/2020 7:47 AM REFINED SYRUP OPERATOR New Bag 04/17/2020 7:04 AM REFINED SYRUP OPERATOR 30 mL/hr 30 mL/hr lidocaine (XYLOCAINE) 20 mg/mL (2 %) preservative free injection As needed, Starting on Thu04/17/20 at 0750, Anesthesia Intra-op Given 04/17/2020 7:50 AM REFINED SYRUP OPERATOR 100 mg midazolam (VERSED) 1 mg/mL preservative free injection intravenous, Administer over 2 Minutes, As needed, Starting on Thu04/17/20 at 0747, Anesthesia Intra-op Given 04/17/2020 7:47 AM REFINED SYRUP OPERATOR 2 mg ondansetron (ZOFRAN) injection intravenous, Administer over 2 Minutes, As needed, Starting on Thu04/17/20 at 0852, Anesthesia Intra-op Given 04/17/2020 8:52 AM REFINED SYRUP OPERATOR 4 mg propofoL (DIPRIVAN) IV intravenous, As needed, Starting on Thu04/17/20 at 0750, Anesthesia Intra-op Given 04/17/2020 7:50 AM REFINED SYRUP OPERATOR 200 mg documented in this encounter Care Teams Lehr Operator Relationship Specialty Start Date End Date Jessica Navarro NP [address] [place] [address] PCP - General 07/26/19 08/22/20 documented as of this encounter
--- OUTSIDE RECORDS SUMMARY | 2024-04-14 18:34 | XMS_ITS | Encounter Summary ---
Author Organization [facility] Healthcare Address [address] [place] [address] Care Team Providers Care Pasteurizer Name Role Phone Jessica Navarro NP Primary Care Provider Encounter Details Date Type Department Care Team (Late st Contact Info) Description 06/29/2020 10:00 AM SOLAR POOL HEATING INSTALLER Therapy [facility] Physical Therapy [address] [place] [phone] Jaye Zayas, PT Nontraumatic rupture of tendons [...] Progress Notes * Jaye Zayas, PT - 06/29/2020 10:00 AM CST PT Daily Treatment Note Re-assessment Updated Plan of Care Lilli Santos 1995 Subjective: Pt states she thinks the left ankle pain and stiffness have improved somewhat but she continues to have pain. She states the problems with the first and second toe don't seem to be too much better. She state they are numb all the time and they feel like they stay extended. She states she still has numbness in the first 2 toes. She states she feels like therapy is helping but she feelslike some of her problems cannot be helped with therapy. Pt states she would like to hold off on therapy until after her next MD appt on 07/19. Pt states the pain is better in the morning and gets worse as the day goes on. She states it is very uncomfortable at night and it does disturb her sleep. She states she does take some ibuprofen and it does not help. Pain: 06/06 medial L heel/ankle area Pain at bed: 10 Worst 10/04. LEFS: Objective:Re-assessing pt for ROM and strength this date. Ankle AROM: Left Right Dorsiflexion 5 deg 8 deg Plantarflexion 60 deg 42 deg Inversion 28 deg 28 deg Eversion 18 deg 38 deg ?? Ankle PROM: Left Right Dorsiflexion 7 deg 12 deg Plantarflexion 60 deg 42 deg Inversion 35 deg 28 deg Eversion 22 deg 38 deg. ?? Strength: Left Right Dorsiflexion 4-/5 5/5 Plantarflexion 4-/5 5/5 Inversion 3+/5 5/5 Eversion 3+/5 5/5 Great toe flexion 3+/5 NT Great toe ext 3-/5 NT Treatment Provided: *indicates not performed today Nustep L6 6 min Bilat calf press on leg pres 65# x 20 (pt reports pain with DF motions, stretch with this ex) Single leg press 45# x 15 on the left In parallel bars: Bilat toe raises x 20 Attempts single toe raise (PF ) on the left but unable Bilat heel walking x 2 passes SLS on the left, LOB at 4 sec, but works on holding x 15 sec. Attempted partial squat and ROM very limited Standing with bilat feet on rocker board fwd/bkwd x 15 then side to side x 15* Standing on blue foam SLS??L??x 5 for 15 sec min UE support* On blue foam - Bilat toe raises x 20- no UE support* On blue foam - Bilat DF, rocking back on heels x 20 - no UE support* Dome stretch, 5x for 20-30 sec each* ?? Red theraband resisted DF/PF, EV/INV x 15 each* Sitting heel slides x 10??* Then PF with toe push off x 15* Sitting towel curls x 20* BAPS L 3 fwd/back, R/L and circles CW and CCW x 20 ea* Sitting with leg extended, ankle over edge of table: * Gentel STM manual to medial aspect of left foot/ankle and along incision line.* Gentle PROM into DF/PF, EV/INV* Gentle distraction of the calcaneus and some PROM into DF, EV and INV x 7 each* STM L foot/great toe/ heel * Anterior glide of talus* PROM of great toe into flexion and extension* Manually resisted left great toe flexion x 10 and extension x 10??* ?? Gentle IASTM medial plantar aspect of left foot* Rock tape medial 1/2 strip medial great toe with inferior pull into abd and along medial aspect of the foot inferior to the scar and around the heel Other half strip under the arch of the foot to secure the lateral piece. Avoiding over the scar. ?? HEP: Sitting rocker board DF/PF x 10 (gave as HEP) Sitting heel slides x 10 (garus HEP of ankle circles, and yellow theraband ex.?? 06/19/20:Instructed pt to add SLS on the left at home.?? Treatment Ideas:Left ankle gentle stretching, PROM and mobilization Soft tissue mobilization as tolerated AROM/strengthening, BAPS board, ankle board sitting and progress to partial wt bearing and standing Stair ex as tolerated, leg press Standing balance ex, glue foam for stabilty Modalities as indicated ktape as indicated ?? Assessment: Pt reports she is working on her home ex. She has demonstrated some improvements in ROMand strength but she is still not near normal ranges. The pt continues to report pain in her medialankle and foot and difficulty with control of the right great toe and the second toe. The pt continues to walk with abnormal gait pattern pushing off with the lateral border of her foot. She would benefit from continued therapy to address ongoing goals. Goals STG 1:: Pt able to demonstrate indep with HEP in 3 weeks.(met) STG 2:: Pt able to report a decrease in subjective level of pain at worst to 6/10 or less in 3 weeks.(ongoing) STG 3:: Pt able to demonstrate a decrease in edema by .5 cm in 3 weeks.(ongoing) STG 4:: Pt able to demonstrate improved left ankle AROM in 3 weeks by 3-5 degrees in all planes.(met) LTG 1:: Pt able to report a decrease in subjective level of worse pain to 4/10 or less and in best pain to 2/10 or less by DC.(ongoing) LTG 2:: Pt able to demonstrate improved AROM in the left ankle by 7-10 degrees in all planes by DC.(ongoing) LTG 3:: Pt able to demonstrate improved strength in the left ankle by DC.(ongoing) LTG 4:: Pt able to demonstrate normalized gait pattern in the left knee by DC.(ongong) LTG 5:: Pt able to report improvement on the LEFS to 50-70/80 by DC.(ongoing) Plan: The pt has completed 9/ visits. Pt does not return for f/u until 07/19/20. The plan is to continue therapy 2x a week for an additional 18 visits. Start Time: 955 End Time:1040 Jaye Zayas PT, DPT R POOL HEATING INSTALLER documented in this encounter Plan of Treatment Not on file documented as of this encounter Visit Diagnoses Diagnosis Nontraumatic rupture of tendons of left foot and ankle- Primary documented in this encounter Care Teams Pasteurizer Relationship Specialty Start Date End Date Jessica Navarro NP [address] [place] [address] PCP - General 07/26/19 08/22/20 documented as of this encounter
--- OUTSIDE RECORDS SUMMARY | 2024-04-14 18:34 | XMS_ITS | Encounter Summary ---
Author Organization [facility] Healthcare Address [address] [place] [address] Care Team Providers Care Low Altitude Air Defense Gunner Name Role Phone Jessica Navarro NP Primary Care Provider Reason for Visit * Reason Comments PT Treatment Encounter Details Date Type Department Care Team (Late st Contact Info) Description 06/25/2020 1:45 PM SHIRT FOLDER Therapy [facility] Physical Therapy [address] [place] [phone] Jaye Zayas, PT Nontraumatic rupture of tendons [...] Progress Notes * Jaye Zayas, PT - 06/25/2020 1:45 PM CST PT Daily Treatment Note Lilli Danielle 1995 Subjective: Pt states her left medial ankle is sore. She rates her pain 2/19. She states her toe continues to pull inward most of the time. She states she has been wearing her tennis shoes instead ofthose other slip on shoes for about 3 days. Pain: 06/06 L foot Objective: Pt comes in wearing lace up atheletic shoes today. Treatment Provided: *indicates not performed today Sitting with left foot on rocker board DF/PF x 20 Eversion/inversion x 20 Nustep L6 6 min* In parallel bars: Standing with bilat feet on rocker board fwd/bkwd x 15 then side to side x 15 Standing on blue foam SLS L x 5 for 15 sec no UE support Bilat toe raises x 20 Bilat DF, rocking back on heels x 20 Dome stretch, 5x for 20-30 sec each Red theraband resisted DF/PF, EV/INV x 15 each* Sitting heel slides x 10??* Then PF with toe push off x 15* Sitting towel curls x 20* Sitting with leg extended, ankle over edge of table: Gentel STM manual to medial aspect of left foot/ankle and along incision line. Gentle PROM into DF/PF, EV/INV Gentle distraction of the calcaneus and some PROM into DF, EV and INV x 7 each Anterior glide of talus PROM of great toe into flexion and extension Manually resisted left great toe flexion x 10 and extension x 10? Gentle IASTM medial plantar aspect of left foot* Rock tape medial 1/2 strip medial great toe with inferior pull into abd and along medial aspect of the foot inferior to the scar and around the heel. Other half strip under the arch of [...] pt per POC Start Time: 1345 End Time:1430 Jaye Zayas PT, DPT T FOLDER documented in this encounter Plan of Treatment Not on file documented as of this encounter Visit Diagnoses Diagnosis Nontraumatic rupture of tendons of left foot and ankle- Primary documented in this encounter Care Teams Low Altitude Air Defense Gunner Relationship Specialty Start Date End Date Jessica Navarro NP [address] [place] [address] PCP - General 07/26/19 08/22/20 documented as of this encounter
--- OUTSIDE RECORDS SUMMARY | 2024-04-14 18:34 | XMS_ITS | Encounter Summary ---
Author Organization [facility] Healthcare Address [address] [place] [address] Care Team Providers Care Punch Press Feeder Name Role Phone Jessica Navarro NP Primary Care Provider Reason for Visit * Reason Comments PT Treatment Encounter Details Date Type Department Care Team (Late st Contact Info) Description 06/15/2020 10:15 AM ACID CRANE OPERATOR Therapy [facility] Physical Therapy [address] [place] [phone] Jaye Zayas, PT Nontraumatic rupture of tendons [...] Progress Notes * Jaye Zayas, PT - 06/15/2020 10:15 AM CST PT Daily Treatment Note Lilli Danielle 1995 Subjective: Pt states her pain is 7/10 today. She states it is right under the left big toe and then near the back just posterior inferior to the medial malleolus. Pt states the tape did seem to helpbut she would like to try coming across the top of the toe this time. Pain: 10/04 Objective: See treatment provided Treatment Provided: Sitting with leg extended, ankle over edge of table: Gentel STM manual to medial aspect of left foot/ankle and along incision line. Gentle PROM into DF/PF, EV/INV Gentle distraction of the calcaneus and some PROM into DF Anterior glide of talus* PROM of great toe into flexion and extension Manually resisted left great toe flexion x 10 and extension x 10 Red theraband resisted DF/PF, EV/INV x 15 [...] Pt tolerates treatment well but continues to report quite a bit of pain and tenderness. Plan: Cont PT as per POC. Try to progress to some modified wt bearing ex next visit as pt tolerates. Start Time: 830 End Time:915 Jaye Zayas PT, DPT CRANE OPERATOR documented in this encounter Plan of Treatment Not on file documented as of this encounter Visit Diagnoses Diagnosis Nontraumatic rupture of tendons of left foot and ankle- Primary documented in this encounter Care Teams Punch Press Feeder Relationship Specialty Start Date End Date Jessica Navarro NP [address] [place] [address] PCP - General 07/26/19 08/22/20 documented as of this encounter
--- OUTSIDE RECORDS SUMMARY | 2024-04-14 18:34 | XMS_ITS | Encounter Summary ---
Author Organization [facility] Healthcare Address [address] [place] [address] Care Team Providers Care Handyperson Name Role Phone Jessica Navarro NP Primary Care Provider [phone] Reason for Visit * Reason Comments PT Treatment Encounter Details Date Type Department Care Team (Late st Contact Info) Description 06/27/2020 9:15 AM MACHINE HOOP MAKER HELPER Therapy [facility] Physical Therapy [address] [place] [phone] Christi Chanel, STOCK SAW OPERATOR Nontraumatic rupture of tendons of left foot [...] this encounter Progress Notes * Christi Chanel STOCK SAW OPERATOR - 06/27/2020 9:15 AM CST PT Daily Treatment Note Lilli Danielle 1995 Subjective: Pt states her pain is different, it used to be sharp and now it is achy. Pain: 4/10 medial L heel/ankle area Objective: Added blue foam to some standing ex.and leg press today Treatment Provided: *indicates not performed today Nustep L6 6 min ?? In parallel bars: Standing with bilat feet on rocker board fwd/bkwd x 15 then side to side x 15 Standing on blue foam SLS??L??x 5 for 15 sec min UE support On blue foam - Bilat toe raises x 20- no UE support On blue foam - Bilat DF, rocking back on heels x 20 - no UE support Dome stretch, 5x for 20-30 sec each Leg press ankles 65# B x 10 reps ?? Red theraband resisted DF/PF, EV/INV x 15 each* Sitting heel slides x 10??* Then PF with toe push off x 15* Sitting towel curls x 20* BAPS L 3 fwd/back, R/L and circles CW and CCW x 20 ea Sitting with leg extended, ankle over edge of table: Gentel STM manual to medial aspect of left foot/ankle and along incision line. Gentle PROM into DF/PF, EV/INV Gentle distraction of the calcaneus and some PROM into DF, EV and INV x 7 each STM L foot/great toe/ heel Anterior glide of talus PROM of great toe into flexion and extension Manually resisted left great toe flexion x 10 and extension x 10? Gentle IASTM medial plantar aspect of left foot* Rock tape medial 1/2 strip medial great toe with inferior pull into abd and along medial aspect of the foot inferior to the scar and around the heel.-* hold today 2 going for pedicure Other half strip under the arch of [...] and advance as pt tolerates. Start Time: 920 End Time:1000 Christi Chanel PTA INE HOOP MAKER HELPER documented in this encounter Plan of Treatment Not on file documented as of this encounter Visit Diagnoses Diagnosis Nontraumatic rupture of tendons of left foot and ankle- Primary documented in this encounter Care Teams Handyperson Relationship Specialty Start Date End Date Jessica Navarro NP [address] [place] [address] PCP - General 07/26/19 08/22/20 documented as of this encounter
--- OUTSIDE RECORDS SUMMARY | 2024-04-14 18:34 | XMS_ITS | Encounter Summary ---
Author Organization [facility] Address [address] [address] Care Team Providers Care Zone Maintenance Technician Name Role Phone Jessica Navarro NP Primary Care Provider Encounter Details Date Type Department Care Team (Late st Contact Info) Description 04/19/2020 Telephone [facility] [address] [place] [phone] Delisa Rivas RN Social History Tobacco Use Types Packs/Day Years [...] encounter Miscellaneous Notes * Telephone Encounter - Delisa Rivas RN - 04/23/2020 2:37 PM CST Pt was seen today in the ofc-please see that ofc note. NCT HISTORY INSTRUCTOR * Telephone Encounter - Delisa Rivas RN - 04/19/2020 11:04 AM CST Pt had L trigger toe release on 04/17/20. Called yesterday afternoon to report that her L leg is still numb from the block . Spoke with pt this am per Dr Broussard request. States that she can feelincision now et it feels like leg is waking up . Pt reassured, instructed to wear boot as directedper Dr Broussard et keep appt for 04/26/20-call sooner if needed. She voices understanding. NCT HISTORY INSTRUCTOR documented in this encounter Plan of Treatment Not on file documented as of this encounter Visit Diagnoses Not on filedocumented in this encounter Care Teams Zone Maintenance Technician Relationship Specialty Start Date End Date Navarro, Jessica Pinto NP [address] [place] [address] PCP - General 07/26/19 08/22/20 documented as of this encounter
--- OUTSIDE RECORDS SUMMARY | 2024-04-14 18:34 | XMS_ITS | Encounter Summary ---
Author Organization [facility] Healthcare Address [address] [place] [address] Care Team Providers Care Rehabilitation Therapist Name Role Phone Jessica Navarro NP Primary Care Provider Encounter Details Date Type Department Care Team (Latest Contact Info) Description 05/14/2020 2:49 PM LEASE BROKER - 05/14/2020 2:57 PM LEASE BROKER Hospital Encounter [facility] Discharge Disposition: Discharge to home or self [...] this encounter Medications at Time of Discharge hydrOXYzine (VISTARIL) 25 mg capsule Take 25 mg by mouth 3 (three) times a day as needed for itching 02/04/2021 TiZANidine (ZANAFLEX) 2 mg capsuleIndication s:Muscle Spasm Take 2 mg by mouth 3 (three) times a day as needed for muscle spasms 02/04/2021 documented as of this encounter Discharge Disposition Disposition Code Departure Means Destination Discharge to home or self care documented in this encounter Plan of Treatment Not on file documented as of this encounter Visit Diagnoses Not on filedocumented in this encounter Care Teams Rehabilitation Therapist Relationship Specialty Start Date End Date Melanie, Jessica Pinto NP [address] [place] [address] PCP - General 07/26/19 08/22/20 documented as of this encounter
--- OUTSIDE RECORDS SUMMARY | 2024-04-14 18:34 | XMS_ITS | Encounter Summary ---
Author Organization [facility] Address [address] [address] Care Team Providers Care Finishing Range Operator Name Role Phone Jessica Navarro NP Primary Care Provider Reason for Visit * Reason Comments Post-op Numbness Encounter Details Date Type Department Care Team (Late st Contact Info) Description 04/23/2020 9:40 AM BIG DATA DEVELOPER Office Visit [facility] [address] [place] [phone] Kishan Broussard MD [address] [address] Tendinitis of ankle (Primary Dx) Social History Tobacco Use [...] - - Temperature 36.1 ??C (96.9 ??F) 04/23/2020 1 0:07 AM BIG DATA DEVELOPER Respiratory Rate - - Oxygen Saturation - - Inhaled Oxygen Concentration - - Weight 93.4 kg (205 lb 14.6 oz) 020 10:07 AM BIG DATA DEVELOPER Height 160 cm (5' 2.99 ) 04/23/2020 10: 07 AM BIG DATA DEVELOPER Body Mass Index 36.48 04/23/2020 10:07 AM BIG DATA DEVELOPER documented in this encounter Progress Notes * Kishan Broussard MD - 04/23/2020 9:40 AM CST Patient attends today earlier than planned 6 days postop due to numbness in the forefoot. Her boot and dressings have been removed and they were quite tight secondary to postoperative swelling. Incision looks fine. There is alteration of sensation in the medial and lateral plantar nerve distribution as well as in the dorsal foot with there is grade 1 edema. Skin is intact. Neurovascular status is preserved. Diagnosis-status post left great trigger total release. Plan-maintain boot. Return in 7 days. DATA DEVELOPER documented in this encounter Plan of Treatment Not on file documented as of this encounter Visit Diagnoses Diagnosis Tendinitis of ankle- Primary documented in this encounter Care Teams Finishing Range Operator Relationship Specialty Start Date End Date Jessica Navarro NP [address] [place] [address] PCP - General 07/26/19 08/22/20 documented as of this encounter
--- OUTSIDE RECORDS SUMMARY | 2024-04-14 18:34 | XMS_ITS | Encounter Summary ---
Author Organization [facility] Healthcare Address [address] [place] [address] Care Team Providers Care Chicken Sexer Name Role Phone Jessica Navarro NP Primary Care Provider [phone] Reason for Visit * Reason Comments PT Treatment Encounter Details Date Type Department Care Team (Late st Contact Info) Description 06/21/2020 1:45 PM POWER PLANT OPERATOR APPRENTICE Therapy [facility] Physical Therapy [address] [place] [phone] Christi Chanel, DAY PORTER Nontraumatic rupture of tendons of left foot [...] this encounter Progress Notes * Christi Chanel, DAY PORTER - 06/21/2020 1:45 PM CST PT Daily Treatment Note Lilli Santos 1995 Subjective: Pt states she saw the dr today and she said he didn't really say much. Pt states she isto go back to the dr in 4 weeks. Pt states pain, swelling, medial foot and ankle are tight. Pain: 4-5/10 L foot Objective: Treatment Provided: Sitting with leg extended, ankle [...] flexion x 10 and extension x 10 ?? Standing with left foot on rocker board, PWB PF/DF and EV/INV x 10 Standing with bilat feet on rocker board fwd/bkwd x 15 then side to side x 15 Standing on floor SLS L x 5 for 15 sec each with no UE support Bilat toe raises x 15 Bilat DF, rocking back on heels x 15 ?? Red theraband resisted DF/PF, EV/INV x 15 each Sitting BAPS board L3, fwd/bkwd x 10, Lateral x 10 and circles CW and CCW x 10 each* Sitting heel slides x 10 Then PF with toe push off x 15* Sitting towel curls x 20* Gentle IASTM medial plantar aspect of left [...] stabilty Modalities as indicated ktape as indicated Assessment: Goals are ongoing Pt tolerated treatment well Plan: Continue to see pt per POC Start Time: 1345 End Time:1430 Christi Chanel, DAY PORTER R PLANT OPERATOR APPRENTICE documented in this encounter Plan of Treatment Not on file documented as of this encounter Visit Diagnoses Diagnosis Nontraumatic rupture of tendons of left foot and ankle- Primary documented in this encounter Care Teams Chicken Sexer Relationship Specialty Start Date End Date Melanie, Jessica Pinto NP [address] [place] [address] PCP - General 07/26/19 08/22/20 documented as of this encounter
--- OUTSIDE RECORDS SUMMARY | 2024-04-14 18:34 | XMS_ITS | Encounter Summary ---
Author Organization [facility] Healthcare Address [address] [place] [address] Care Team Providers Care Swaging Machine Operator Name Role Phone Jessica Navarro NP Primary Care Provider [phone] Encounter Details Date Type Department Care Team (Late st Contact Info) Description 04/17/2020 6:26 AM COLLECTIONS PROFESSIONAL - 04/17/2020 12:05 PM COLLECTIONS PROFESSIONAL Hospital Encounter [facility] Operating Room [address] [place] [address] Kishan Broussard MD [address] [place] [address] Discharge Disposition: Discharge to home or self [...] Sign Reading Time Taken Comments Blood Pressure 148/66 04/17/2020 11:56 AM COLLECTIONS PROFESSIONAL Pulse 89 04/17/2020 11:56 AM COLLECTIONS PROFESSIONAL Temperature 36.5 ??C (97.7 ??F) 04/17/2020 1 1:56 AM COLLECTIONS PROFESSIONAL Respiratory Rate 18 04/17/2020 11:5 6 AM COLLECTIONS PROFESSIONAL Oxygen Saturation 98% 04/17/2020 11: 56 AM COLLECTIONS PROFESSIONAL Inhaled Oxygen Concentration - - Weight 93.4 kg (205 lb 14.6 oz) 04/17/2020 6:45 AM COLLECTIONS PROFESSIONAL Height 160 cm (5' 3 ) 04/17/2020 6:45 AM COLLECTIONS PROFESSIONAL Body Mass Index 36.48 04/17/2020 6:45 AM COLLECTIONS PROFESSIONAL documented in this encounter Discharge Diagnoses Diagnosis Other deformities of toe(s) (acquired), left foot - OTHER DEFORMITIES OF TOE(S) (ACQUIRED), LEFT FOOT Strain of muscle and tendon of long flexor muscle of toe at ankle and foot level, left foot, initial encounter - STRAIN OF MUSCLE AND TENDON OF LONG FLEXOR MUSCLE OF TOE AT ANKLE AND FOOT LEVEL, LEFT FOOT, INITIAL Exposure to other specified factors, initial encounter - EXPOSURE TO OTHER SPECIFIED FACTORS, INITIAL ENCOUNTER Activity, unspecified - ACTIVITY, UNSPECIFIED Unspecified place or not applicable - UNSPECIFIED PLACE OR NOT APPLICABLE Unspecified external cause status - UNSPECIFIED EXTERNAL CAUSE STATUS Synovitis and tenosynovitis, unspecified - SYNOVITIS AND TENOSYNOVITIS, UNSPECIFIED Anxiety disorder, unspecified - ANXIETY DISORDER, UNSPECIFIED Unspecified asthma, uncomplicated - UNSPECIFIED ASTHMA, UNCOMPLICATED Gastro-esophageal reflux disease without esophagitis - GASTRO-ESOPHAGEAL REFLUX DISEASE WITHOUT ESOPHAGITIS Nicotine dependence, cigarettes, uncomplicated - NICOTINE DEPENDENCE, CIGARETTES, UNCOMPLICATED Other retirement (current) drug therapy - OTHER WOODS WARDEN (CURRENT) DRUG THERAPY documented in this encounter Discharge Instructions * Discharge Instructions* Brigida Grier RN - 04/17/2020 10:[address] Broussard Discharge Instructions 1. Elevate operative limb (no pillow directly behind knees). 2. Apply ice to operative limb for next 24-48 hours. 3. Weightbearing status: (check one) __ Non weight-bearing __ Toe-touch weight-bearing __ Partial weight-bearing _x_ Full weight-bearing 4. Leave dressing alone, other than to loosen if too tight 5. Keep dressing clean, dry, and intact until follow visit 6. Keep boot on at all times while ambulating a) May shower with dressing wrapped in plastic bag b) After 3-4 days, begin [id number] exercises. 7. Exercises: a) Move fingers, elbow, toes and ankle frequently as appropriate. b) Flex and extend knee twice daily. c) Straight leg raises as instructed. d) Calf pumping as instructed. 8. Call if increased pain, numbness or tingling in operative extremity, fever over 101?? F, chills or any other questions or problems. 9. Return to office: _x_ as planned __ call [phone] to make appointment in 10 days 10. Resume regular diet Dr. Kishan Broussard [facility] [address] [id number] ECTIONS PROFESSIONAL * Attachments The following attachments cannot be sent through Care Everywhere. * General Anesthesia (Discharge Care) (Bhutanese) * How to Stop Smoking (Discharge Care) (Bhutanese) * Hydrocodone/Acetaminophen (By mouth) (Bhutanese) documented in this encounter Medications at Time of Discharge albuterol 2.5 mg /3 mL (0.083 %) nebulizer solutionIndicati ons:Acute Asthma Attack Take 2.5 mg by nebulization every 6 (six) hours as needed for wheezing 1 albuterol HFA (PROVENTIL HFA,VENTOLIN HFA,PROAIR HFA) 90 mcg/actuation inhalerIndicatio ns:Acute Asthma Attack Inhale 2 puffs as needed for wheezing 1 hydrOXYzine (VISTARIL) 25 mg capsule Take 25 mg by mouth 3 (three) times a day as needed for itching 1 TiZANidine (ZANAFLEX) 2 mg capsuleIndicatio ns:Muscle Spasm Take 2 mg by mouth 3 (three) times a day as needed for muscle spasms 1 documented as of this encounter Discharge Disposition Disposition Code Departure Means Destination Discharge to home or self care documented in this encounter H&P Notes * Kishan Broussard MD - 04/17/2020 7:47 AM CST I have reviewed the H&P, examined the patient, and endorse the findings as written. Plan of Care : Based on the above findings, I consider Lilli Santos to be an acceptable risk for :Procedure(s): RELEASE TRIGGER TOE-LEFT ECTIONS PROFESSIONAL Source Note - Kishan Broussard MD - 04/12/2020 12:00 AM COLLECTIONS PROFESSIONAL Ms. Santos will be at [facility] for day surgery 04/17/2020 to undergo left trigger toe release. History of Present Illness Ms. Santos is a 25-year-old female patient of Jessica Navarro NP, who has been under my care since 03/08/2020 with left great trigger toe. With flexion, her toe locks down and she has to manually extend it. She has failed to respond to conservative measures and has indication at this time for left trigger toe release in the great digit. The risks, benefits, complications, prognosis for recovery, aswell as realistic expectations were discussed with the patient who is in agreement with the proposed plan. Past Medical History Medical: No medical problems listed. Surgical: No previous related surgery. Medications Zofran. Allergies None known. Habits Nonsmoker, nondrinker. Family History Noncontributory for anesthetic-related problems. Social History The patient is single. Review Of Systems Central Nervous System: Denies dizziness or loss of consciousness. Chest: Denies any current shortness of breath or chronic cough. Cardiovascular: No chest pain, no palpitations at present. Gastrointestinal: No abdominal pain, constipation, diarrhea. Genitourinary: No urinary urgency or frequency. Musculoskeletal: See History of Present Illness. Physical Examination General Appearance: Ms. Santos is a healthy appearing 25-year-old in no distress. Vital Signs: Blood pressure 124/80, respirations 16, pulse 62, temperature afebrile. Head And Neck: All cranial nerves are grossly intact. Pupils were equal and reactive to light and accommodation. Extraocular movements are normal. Normocephalic. Trachea is midline. C-spine range of motion is full. Chest: Air entry is good to all regions. No adventitial sounds heard. Chest expansion is symmetrical. Cardiovascular: Heart sounds are normal. No S4 and no murmurs heard. Jugular venous pressure at SA.All peripheral pulses are 4+. No bruits are auscultated. Abdomen: Soft and nontender. Bowel sounds are present. No masses are palpated. Extremities: Positive findings are limited to the left great toe where there is tenderness over theplantar aspect of the toe adjacent to the MTP joint. There is popping with palpable lock down subsequently. Skin: Intact. Neurovascular Status: Preserved. Tenderness is moderate. Investigations X-rays are within normal limits. Summary This 25-year-old with left great toe triggering has indication for left great trigger toe release. The risks, benefits, complications, prognosis for recovery, as well as realistic expectations were discussed with the patient who is in agreement with the proposed plan. Plan Day surgery, [facility] 04/17/2020. On admission, please obtain consent for left greattrigger toe release. Job ID/VF Job ID: [id number] ECTIONS PROFESSIONAL * Kishan Broussard MD - 04/12/2020 12:00 AM CST Ms. Santos will be at [facility] for day surgery 04/17/2020 to undergo left trigger toe release. History of Present Illness Ms. Santos is a 25-year-old female patient of Jessica Navarro NP, who has been under my care since 03/08/2020 with left great trigger toe. With flexion, her toe locks down and she has to manually extend it. She has failed to respond to conservative measures and has indication at this time for left trigger toe release in the great digit. The risks, benefits, complications, prognosis for recovery, aswell as realistic expectations were discussed with the patient who is in agreement with the proposed plan. Past Medical History Medical: No medical problems listed. Surgical: No previous related surgery. Medications Zofran. Allergies None known. Habits Nonsmoker, nondrinker. Family History Noncontributory for anesthetic-related problems. Social History The patient is single. Review Of Systems Central Nervous System: Denies dizziness or loss of consciousness. Chest: Denies any current shortness of breath or chronic cough. Cardiovascular: No chest pain, no palpitations at present. Gastrointestinal: No abdominal pain, constipation, diarrhea. Genitourinary: No urinary urgency or frequency. Musculoskeletal: See History of Present Illness. Physical Examination General Appearance: Ms. Santos is a healthy appearing 25-year-old in no distress. Vital Signs: Blood pressure 124/80, respirations 16, pulse 62, temperature afebrile. Head And Neck: All cranial nerves are grossly intact. Pupils were equal and reactive to light and accommodation. Extraocular movements are normal. Normocephalic. Trachea is midline. C-spine range of motion is full. Chest: Air entry is good to all regions. No adventitial sounds heard. Chest expansion is symmetrical. Cardiovascular: Heart sounds are normal. No S4 and no murmurs heard. Jugular venous pressure at SA.All peripheral pulses are 4+. No bruits are auscultated. Abdomen: Soft and nontender. Bowel sounds are present. No masses are palpated. Extremities: Positive findings are limited to the left great toe where there is tenderness over theplantar aspect of the toe adjacent to the MTP joint. There is popping with palpable lock down subsequently. Skin: Intact. Neurovascular Status: Preserved. Tenderness is moderate. Investigations X-rays are within normal limits. Summary This 25-year-old with left great toe triggering has indication for left great trigger toe release. The risks, benefits, complications, prognosis for recovery, as well as realistic expectations were discussed with the patient who is in agreement with the proposed plan. Plan Day surgery, [facility] 04/17/2020. On admission, please obtain consent for left greattrigger toe release. Job ID/VF Job ID: [id number] ECTIONS PROFESSIONAL documented in this encounter Miscellaneous Notes * Perioperative Nursing Note - Inga Hugo RN - 04/17/2020 10:05 AM CST 0945 patient awake, c/o pain to left foot. She is teary and grimacing. I called Dr Corral regarding possible nerve block. 0950 timeout performed, for nerve block by Dr Corral ECTIONS PROFESSIONAL * Perioperative Nursing Note - Berna Forrest RN - 04/17/2020 9:13 AM CST Patient moved approximately 4 inches down OR table during procedure per surgeon request ECTIONS PROFESSIONAL * Brief Op Note - Kishan Broussard MD - 04/17/2020 8:12 AM CST Operative Progress Note Surgical Team: Surgeon(s) and Role: * Kishan Broussard MD - Primary Anesthesiologist: Jose Corral MD PhD MEDICAL TRANSCRIPTION RADIOLOGY: Liset Byers CRNA Seed Technician: Berna Forrest RN Scrub: Vicky Garcia LPN CLUB FORMER: Rochelle Nixon RN DATE OF SURGERY : 04/17/2020 Preoperative Diagnosis: Pre-op Diagnosis * Acquired deformity of left toe [M20.62] Postoperative Diagnosis: Post-op Diagnosis * Acquired deformity of left toe [M20.62] Procedure(s): Procedure(s) (LRB): RELEASE TRIGGER TOE-LEFT (Left) Operative Findings: Estimated Blood Loss: No blood loss documented. Intraoperative Fluids: mls Specimens: No specimen collected in procedure Implants: Nothing was implanted during the procedure Blood/Blood Products Transfused: mls Complications: None Condition on Discharge from the operating room was stable Kishan Broussard MD Date: 04/17/2020 Time: 9:09 AM ECTIONS PROFESSIONAL * Op Note - Kishan Broussard MD - 04/17/2020 12:00 AM CST Procedure Right great trigger toe release. Operative Indications Ms. Santos is a 25-year-old female patient of [employer] who has been under my care since 03/08/2020 with right medial ankle pain and great toe triggering secondary to tenosynovitis of the flexor hallucis longus. The patient has failed to respond to conservative measures and has indication at this time for right great trigger toe release. The risks, benefits, complications, prognosis for recovery, as well as realistic expectations were discussed with the patient who is in agreement with the proposed plan. Operative Procedure Following administration of general anesthesia in the supine position, the patient's left lower extremity was prepped and draped in the usual fashion to allow free limb motion. Exsanguination was undertaken and a tourniquet was inflated to 300 mmHg. Via a curvilinear longitudinal incision of 7 cm length adjacent to the distal medial malleolus, skin and soft tissues were divided and retractors were placed. The tibialis posterior was identified and retracted following which the flexor digitorum profundus was identified and retracted. With soft tissue dissection distally, the flexor hallucis longus tendon sheath was identified and incised. There was a partial tear of the flexor hallucis longus involving 33% of the tendon and the torn portion was flipped over which had created considerable inflammation/tenosynovitis. This was trimmed away and smoothed up. Soft tissue dissection identified a great deal of fibrosis which explained the patient's triggering and severe pain. This was completely decompressed and repaired. Following completion of the procedure, no attempted closure of the tendon sheaths was undertaken and hemostasis was obtained. Closure was undertaken following release of the tourniquet with inverted simple sutures of 2-0 Vicryl in the subcutaneous tissues adjacent to the tendon sheaths and then with 3-0 inverted simple sutures of Vicryl in the subcutaneous tissue. Skin closure was then accomplished with subcuticular suture of 3-0 Quill with Steri-Strip reinforcement. Dressings were applied and a walking boot placed. There were no intraoperative complications. Patient tolerated procedure well, was returned to the recovery room in satisfactory condition. Preoperative Diagnosis Left great trigger toe. Postoperative Diagnosis Left great trigger toe secondary to a partial flexor hallucis longus tear/tenosynovitis. Procedure Left great trigger toe release with partial resection of the flexor hallucis longus. [employer] None. Job ID/VF Job ID: [id number] ECTIONS PROFESSIONAL * Pre-Procedure Instructions - Jenny Allison RN - 04/13/2020 12:15 PM COLLECTIONS PROFESSIONAL We are pleased that you and your doctor have chosen [facility] for your surgery. We hope that the following information will help make your visit a pleasant one. Surgery Date: 04/17/2020 Before your surgery: ?? Notify your doctor of ANY change in your health such as a cold, sore throat, fever, any infection or a change in the problem for which you are having your surgery. ?? Follow any instructions given to you by your doctor or surgeon. Check with your doctor if you need to STOP taking: ?? Aspirin (ordered by your doctor) ?? Plavix ?? Coumadin One week before surgery STOP taking: ?? All herbal supplements ?? Aspirin (not ordered by your doctor) ?? Aleve, Advil, Motrin, Ibuprofen, or other similar medications (Tylenol is okay). 24 hours before your surgery: ?? No smoking or alcoholic drinks. ?? Stop taking your: Metformin/Glucophage. Night before your surgery: ?? Do not eat or drink anything after midnight. ?? Take only half of your normal PM Insulin dose. ?? Follow surgeon's instructions for anti-bacterial shower night before and morning of surgery. Day of surgery: ?? Do not swallow any water when you brush your teeth. ?? Do not take your AM insulin dose or any diabetic medicines ?? ONLY take these pills with a tiny sip of water. Pre-Surgery Instructions: Medication Instructions ?? Use no make-up, nail kiswahili, lotions, oils or powders on your skin. ?? Wear comfortable clothes that will not be tight in the area of your surgery. ?? Leave all valuables and jewelry (including all body piercing jewelry) at home. ?? If you use a CPAP machine, please bring it with you to wear after your surgery. ?? Please bring your a photo ID and insurance cards with you. ?? Check in at the Registration Desk. ?? If you are 17 years old or younger, a parent or guardian must come with you. After your Outpatient Surgery: ?? You must have a responsible adult to drive you home, you will not be allowed to drive or take a cab home. ?? We recommend you have someone stay with you for 24 hours after your surgery. What to bring if you are spending the night with us: ?? Bring toiletry items such as: robe, slippers, toothbrush, toothpaste, brush or comb. ?? Bring contact lens, hearing aids, glass cases and denture container if you use any of these items. ?? The hospital will provide you with a gown. Questions or concerns: ?? If you have any questions or concerns regarding your procedure, contact your surgeon as soon as possible. ?? If you have questions regarding your Pre-Admission Testing, please call us. We can be reached atthe number posted at the top of the page. ECTIONS PROFESSIONAL * Perioperative Nursing Note - Jenny Allison RN - 04/13/2020 12:15 PM COLLECTIONS PROFESSIONAL covid screening 04/14/2020 ECTIONS PROFESSIONAL documented in this encounter Plan of Treatment Not on file documented as of this encounter Procedures Procedure Name Priority Date/Time Associated Diagnosis Comments RELEASE TRIGGER FINGER 04/17/2020 7:37 AM COLLECTIONS PROFESSIONAL Acquired deformity of left toe POCT HCG, URINE Routine 04/17/2020 6:58 AM COLLECTIONS PROFESSIONAL documented in this encounter Results * POCT hCG, urine (04/17/2020 6:58 AM COLLECTIONS PROFESSIONAL) HCG, ur, POC Negative Lot Number [id number] QC Backgroud Clear Acceptable QC Control Line Acceptable Urine 04/17/2020 6:58 AM COLLECTIONS PROFESSIONAL us Paul Maya MD POINT OF CARE TEST ORDER DEVYN Final Result documented in this encounter Visit Diagnoses Diagnosis Acquired deformity of left toe- Primary documented in this encounter Admitting Diagnoses Diagnosis Acquired deformity of left toe documented in this encounter Administered Medications Inactive Administered Medications - up to 3 most recent administrations Medication Order MAR Action Action Date Dose Rate Site acetaminophen (TYLENOL) tablet 1,000 mg 1,000 mg, oral, Once, On Thu04/17/20 at 0715, For 1 dose, Pre-Op, Indications: Pre-Emptive AnalgesiaIndications:Pre-Emptiv e Analgesia Given 04/17/2020 7:09 AM COLLECTIONS PROFESSIONAL 1,000 mg celecoxib (CeleBREX) capsule 200 mg 200 mg, oral, Once, On Thu04/17/20 at 0745, For 1 dose, Pre-Op, Indications: Pre-Emptive AnalgesiaIndications:Pre-Emptiv e Analgesia Given 04/17/2020 7:09 AM COLLECTIONS PROFESSIONAL 200 mg HYDROcodone-acetaminophen (NORCO) 5-325 mg per tablet 1 tablet 1 tablet, oral, Once as needed, 1st line for pain, Starting on Thu04/17/20 at 1014, For 1 dose, Phase I & Post-op Floor, Indications: PainIndications:Pain Given 04/17/2020 11:10 AM COLLECTIONS PROFESSIONAL 1 tablet Lactated Ringer's (LR) infusion 30 mL/hr, intravenous, Continuous, Starting on Thu04/17/20 at 0715, Pre-Op New Bag 04/17/2020 9:01 AM COLLECTIONS PROFESSIONAL Rate/Dose Verify 04/17/2020 7:47 AM COLLECTIONS PROFESSIONAL New Bag 04/17/2020 7:04 AM COLLECTIONS PROFESSIONAL 30 mL/hr 30 mL/hr documented in this encounter Discontinued Medications Medication Sig Discontinue Reason Start Date End Da te methylPREDNISolone (Medrol, Ron,) 4 mg Dosepack Take as directed on package 03/08/2020 04/13/2020 ondansetron ODT (ZOFRAN-ODT) 4 mg disintegrating tablet Dissolve 1 tablet oral every 4 hours as needed for nausea or vomiting. 07/26/2019 04/13/2020 documented as of this encounter Historical Medications * This list may reflect changes made after this encounter. albuterol 2.5 mg /3 mL (0.083 %) nebulizer solutionIndicati ons:Acute Asthma Attack Take 2.5 mg by nebulization every 6 (six) hours as needed for wheezing 1 albuterol HFA (PROVENTIL HFA,VENTOLIN HFA,PROAIR HFA) 90 mcg/actuation inhalerIndicatio ns:Acute Asthma Attack Inhale 2 puffs as needed for wheezing 1 TiZANidine (ZANAFLEX) 2 mg capsuleIndicatio ns:Muscle Spasm Take 2 mg by mouth 3 (three) times a day as needed for muscle spasms 1 hydrOXYzine (VISTARIL) 25 mg capsule Take 25 mg by mouth 3 (three) times a day as needed for itching 1 added in this encounter Active and Recently Administered Medications Times are shown in COLLECTIONS PROFESSIONAL. Scheduled Medication Order 04/15/2020 04/16/2020 04/17/2020 acetaminophen (TYLENOL) tablet 1,000 mg (COMPLETED) 1,000 mg, oral, Once, On Thu04/17/20 at 0715, For 1 dose, Pre-Op, Indications: Pre-Emptive Analgesia 0709 (Given - Provid er: Brigida Grier RN) celecoxib (CeleBREX) capsule 200 mg (COMPLETED) 200 mg, oral, Once, On Thu04/17/20 at 0745, For 1 dose, Pre-Op, Indications: Pre-Emptive Analgesia 0709 (Given - Provid er: Brigida Grier RN) Continuous Medication Order 04/15/2020 04/16/2020 04/17/2020 Lactated Ringer's (LR) infusion 30 mL/hr, intravenous, Continuous, Starting on Thu04/17/20 at 0715, Pre-Op 0704 (New Bag - Prov ider: Brigida Grier RN)0747 (Rate/Dose Verify - Provider: Liset Byers CRNA)0901 (New Bag - Provider: Liset Byers CRNA)0920 (Anesthesia Volume Adjustment - Provider: Liset Byers CRNA) PRN Medication Order 04/15/2020 04/16/2020 04/17/2020 HYDROcodone-acetaminophen (NORCO) 5-325 mg per tablet 1 tablet (COMPLETED) 1 tablet, oral, Once as needed, 1st line for pain, Starting on Thu04/17/20 at 1014, For 1 dose, Phase I & Post-op Floor, Indications: Pain 1110 (Given - Provid er: Brigida Grier RN) lidocaine PF (XYLOCAINE) 10 mg/mL (1 %) preservative free injection (CANCELED) As needed, Starting on Thu04/17/20 at 0919, Intra-Op 0919 (Given - Provid er: Kishan Broussard MD) sodium chloride 0.9 % irrigation (CANCELED) As needed, Starting on Thu04/17/20 at 0814, Intra-Op 0814 (Given - Provid er: Kishan Broussard MD - Comment: to sterile field) documented in this encounter Orders Medications Ordered That Edgar ht Not Have Been Administered Count Last Ordered Date First Ordered Date bupivacaine (MARCAINE) 0.25 % (2.5 mg/mL) preservative free injection - ADS Override Pull 1 04/17/2020 celecoxib (CeleBREX) capsule 400 mg 1 04/17 fentaNYL (SUBLIMAZE) preserv ative free injection 25 mcg 1 04/17/2020 lidocaine PF (XYLOCAINE) 10 mg/mL (1 %) preservative free injection 1 04/17/2020 naloxone (NARCAN) 0.4 mg/mL injection 0.04-0.4 mg 1 04/17/2020 ondansetron (ZOFRAN) 4 mg/2 mL injection - ADS Override Pull 1 04/17/2020 ondansetron (ZOFRAN) injection 4 mg 1 04/17 sodium chloride 0.9 % irrigation 1 04/17/20 20 sodium chloride 0.9% flush 0.5-20 mL 1 03/28 documented in this encounter Care Teams Swaging Machine Operator Relationship Specialty Start Date End Date Jessica Navarro NP [address] [place] [address] PCP - General 07/26/19 08/22/20 documented as of this encounter
--- OUTSIDE RECORDS SUMMARY | 2024-04-14 18:34 | XMS_ITS | Encounter Summary ---
Author Organization [facility] Healthcare Address [address] [place] [address] Care Team Providers Care Pulp Grinder And Blender Name Role Phone Jessica Navarro NP Primary Care Provider Encounter Details Date Type Department Care Team (Late st Contact Info) Description 04/17/2020 8:00 AM LEAD MANUFACTURING TECHNICIAN - 04/17/2020 9:00 AM LEAD MANUFACTURING TECHNICIAN Surgery [facility] Operating Room [address] [place] [address] Kishan Broussard MD [address] [place] [id number] RELEASE TRIGGER TOE-LEFT Surgery Details Date/Time Status Location OR Service Patient Class Case Class Case Type Trauma Case? 04/17/2020 8:00 AM Posted [facility] OR Orthopaedics Outpatient Elective Panel 1 Procedure LRB Anes Op Region Wound Class Comments RELEASE TRIGGER TOE-LEFT Left Monitor Anesthesia Care Toes Class I - Clean LEFT TRIGGER TOE RELEASE, GREAT TOE Surgeon Surgeon Role Service Panel Kishan Broussard MD Primary Orthopaedics 1 documented in this [...] Sign Reading Time Taken Comments Blood Pressure 142/102 04/17/2020 6:45 AM LEAD MANUFACTURING TECHNICIAN Pulse 81 04/17/2020 6:45 AM LEAD MANUFACTURING TECHNICIAN Temperature 36.5 ??C (97.7 ??F) 04/17/2020 6:45 AM CS T Respiratory Rate 18 04/17/2020 6:45 AM LEAD MANUFACTURING TECHNICIAN Oxygen Saturation 98% 04/17/2020 6:45 AM LEAD MANUFACTURING TECHNICIAN Inhaled Oxygen Concentration - - Weight 93.4 kg (205 lb 14.6 oz) 04/17/2020 6:45 AM LEAD MANUFACTURING TECHNICIAN Height 160 cm (5' 3 ) 04/17/2020 6:45 AM LEAD MANUFACTURING TECHNICIAN Body Mass Index 36.48 04/17/2020 6:45 AM LEAD MANUFACTURING TECHNICIAN documented in this encounter Discharge Instructions * Discharge Instructions* Brigida Grier RN - 04/17/2020 10:11 AM LEAD MANUFACTURING TECHNICIAN Dr. Broussard Discharge Instructions 1. Elevate operative [...] plastic bag b) After 3-4 days, begin jvolk-fu-ylcyyj exercises. 7. Exercises: a) Move fingers, elbow, toes and ankle frequently as appropriate. b) Flex and extend knee twice daily. c) Straight leg raises as instructed. d) Calf pumping as instructed. 8. Call if increased pain, numbness or tingling in operative extremity, fever over 101?? F, chills or any other questions or problems. 9. Return to office: _x_ as planned __ call [phone] to make appointment in 10 days 10. Resume regular diet Dr. Kishan Broussard [facility] [address] [address] MANUFACTURING TECHNICIAN * Attachments The following attachments cannot be sent through Care Everywhere. * General Anesthesia (Discharge Care) (Cuban) * How to Stop Smoking (Discharge Care) (Cuban) * Hydrocodone/Acetaminophen (By mouth) (Cuban) documented in this encounter Medications at Time [...] acceptable risk for :Procedure(s): RELEASE TRIGGER TOE-LEFT MANUFACTURING TECHNICIAN Source Note - Kishan Broussard MD - 04/12/2020 12:00 AM LEAD MANUFACTURING TECHNICIAN Ms. Santos will be at [facility] for day surgery 04/17/2020 to undergo [...] with the proposed plan. Plan Day surgery, [facility] 04/17/2020. On admission, please obtain consent for left greattrigger toe release. Job ID/VF Job ID: [id number] MANUFACTURING TECHNICIAN * Kishan Broussard MD - 04/12/2020 12:00 AM CST Ms. Santos will be at [facility] for day surgery 04/17/2020 to undergo [...] with the proposed plan. Plan Day surgery, [facility] 04/17/2020. On admission, please obtain consent for left greattrigger toe release. Job ID/VF Job ID: [id number] MANUFACTURING TECHNICIAN documented in this encounter Miscellaneous Notes * Perioperative Nursing Note - Inga Hugo RN - 04/17/2020 10:05 AM CST 0945 patient awake, c/o pain to left foot. She is teary and grimacing. I called Dr Corral regarding possible nerve block. 0950 timeout performed, for nerve block by Dr Corral MANUFACTURING TECHNICIAN * Perioperative Nursing Note - Berna Forrest RN - 04/17/2020 9:13 AM CST Patient moved approximately 4 inches down OR table during procedure per surgeon request MANUFACTURING TECHNICIAN * Brief Op Note - Kishan Broussard MD - 04/17/2020 8:12 AM CST Operative Progress Note Surgical Team: Surgeon(s) and Role: * Kishan Broussard MD - Primary Anesthesiologist: Jose Corral MD PhD GEODESY TEACHER: Liset Byers CRNA Bullet Slug Casting Machine Operator: Berna Forrest RN Scrub: Vicky Garcia LPN HOOD MAKER: Rochelle Nixon RN DATE OF SURGERY : [...] Broussard MD Date: 04/17/2020 Time: 9:09 AM MANUFACTURING TECHNICIAN * Op Note - Kishan Broussard MD - 04/17/2020 12:00 AM CST Procedure Right great trigger toe release. Operative Indications Ms. Santos is a 25-year-old female patient of Emprego Ligado who has been under my care since [...] partial resection of the flexor hallucis longus. Electrical Tests Supervisor None. Job ID/VF Job ID: [id number] MANUFACTURING TECHNICIAN * Pre-Procedure Instructions - Jenny Allison RN - 04/13/2020 12:15 PM LEAD MANUFACTURING TECHNICIAN We are pleased that you and your doctor have chosen [facility] for your surgery. We hope that the [...] Medication Instructions ?? Use no make-up, nail nepali, lotions, oils or powders on your skin. [...] posted at the top of the page. MANUFACTURING TECHNICIAN * Perioperative Nursing Note - Jenny Allison RN - 04/13/2020 12:15 PM LEAD MANUFACTURING TECHNICIAN covid screening 04/14/2020 MANUFACTURING TECHNICIAN documented in this encounter Plan of Treatment Not on file documented as of this encounter Procedures Procedure Name Priority Date/Time Associated Diagnosis Comments RELEASE TRIGGER FINGER 04/17/2020 7:37 AM LEAD MANUFACTURING TECHNICIAN Acquired deformity of left toe POCT HCG, URINE Routine 04/17/2020 6:58 AM LEAD MANUFACTURING TECHNICIAN documented in this encounter Results * POCT hCG, urine (04/17/2020 6:58 AM LEAD MANUFACTURING TECHNICIAN) HCG, ur, POC Negative Lot Number [id number] QC Backgroud Clear Acceptable QC Control Line Acceptable Urine 04/17/2020 6:58 AM LEAD MANUFACTURING TECHNICIAN us Paul Maya MD POINT OF CARE TEST ORDER DEVYN Final Result documented in this encounter Visit Diagnoses Diagnosis Acquired deformity of left toe- Primary Acquired deformity of left toe documented in this encounter Admitting Diagnoses Diagnosis Acquired deformity of left toe documented in this encounter Administered Medications Inactive Administered Medications - up to 3 most recent administrations Medication Order MAR Action Action Date Dose Rate Site acetaminophen (TYLENOL) tablet 1,000 mg 1,000 mg, oral, Once, On Thu04/17/20 at 0715, For 1 dose, Pre-Op, Indications: Pre-Emptive AnalgesiaIndications:Pre-Emptiv e Analgesia Given 04/17/2020 7:09 AM LEAD MANUFACTURING TECHNICIAN 1,000 mg celecoxib (CeleBREX) capsule 200 mg 200 mg, oral, Once, On Thu04/17/20 at 0745, For 1 dose, Pre-Op, Indications: Pre-Emptive AnalgesiaIndications:Pre-Emptiv e Analgesia Given 04/17/2020 7:09 AM LEAD MANUFACTURING TECHNICIAN 200 mg HYDROcodone-acetaminophen (NORCO) 5-325 mg per tablet 1 tablet 1 tablet, oral, Once as needed, 1st line for pain, Starting on Thu04/17/20 at 1014, For 1 dose, Phase I & Post-op Floor, Indications: PainIndications:Pain Given 04/17/2020 11:10 AM LEAD MANUFACTURING TECHNICIAN 1 tablet Lactated Ringer's (LR) infusion 30 mL/hr, intravenous, Continuous, Starting on e 04/17/20 at 0715, Pre-Op New Bag 04/17/2020 9:01 AM LEAD MANUFACTURING TECHNICIAN Rate/Dose Verify 04/17/2020 7:47 AM LEAD MANUFACTURING TECHNICIAN New Bag 04/17/2020 7:04 AM LEAD MANUFACTURING TECHNICIAN 30 mL/hr 30 mL/hr lidocaine PF (XYLOCAINE) 10 mg/mL (1 %) preservative free injection As needed, Starting on Thu04/17/20 at 0919, Intra-Op Given 04/17/2020 9:19 AM LEAD MANUFACTURING TECHNICIAN 5 mL Surgical Site sodium chloride 0.9 % irrigation As needed, Starting on Thu04/17/20 at 0814, Intra-Op Given 04/17/2020 8:14 AM LEAD MANUFACTURING TECHNICIAN 1,000 mL Surgical Site documented in this encounter [...] Administered Medications Times are shown in LEAD MANUFACTURING TECHNICIAN. Scheduled Medication Order 04/15/2020 04/16/2020 04/17/2020 acetaminophen [...] ative free injection 25 mcg 1 04/17/2020 naloxone (NARCAN) 0.4 mg/mL injection 0.04-0.4 mg 1 04/17/2020 ondansetron (ZOFRAN) 4 mg/2 mL injection - ADS Override Pull 1 04/17/2020 ondansetron (ZOFRAN) injection 4 mg 1 04/17 sodium chloride 0.9% flush 0.5-20 mL 1 03/28 documented in this encounter Care Teams Pulp Grinder And Blender Relationship Specialty Start Date End Date Jessica Navarro NP [address] [place] [address] PCP - General 07/26/19 08/22/20 documented as of this encounter
--- OUTSIDE RECORDS SUMMARY | 2024-04-14 18:34 | XMS_ITS | Encounter Summary ---
Author Organization [facility] Healthcare Address [address] [place] [address] Care Team Providers Care Executive Search Consultant Name Role Phone Jessica Navarro NP Primary Care Provider Reason for Visit * Reason Comments PT Treatment Encounter Details Date Type Department Care Team (Late st Contact Info) Description 07/04/2020 10:45 AM FLYER BUILDER Therapy [facility] [address] [place] [address] Christi Chanel, AMUSEMENT CENTRE MANAGER Nontraumatic rupture of tendons of left foot [...] this encounter Progress Notes * Christi Chanel, AMUSEMENT CENTRE MANAGER - 07/04/2020 10:45 AM CST PT Daily Treatment Note Lilli Danielle 1995 Subjective: Pt states her pain is about a 3/10 today. Pain: 3/10 L ankle Objective: Treatment Provided: *indicates not performed today ?? Nustep L6 6 min- pt reports pain with this activity when she was finished. Bilat calf press on leg pres 65# x 20 Single leg calf press 45# x 20 on the left ?? In parallel bars: Bilat toe raises x 20 Attempts single toe raise (PF ) on the left but unable- * Bilat heel walking x 2 passes Bilat toe walking x 2 pases SLS on the left, x 15 sec. X 4 - pt has occ LOB during stance ea time. Attempted partial squat and ROM very limited- not done today Rocker Board fwd/back and R/L x 10 taps and 1 min static hold with occ UE support ??Sit/stand X 5 on blue foam Sit/stand w/partial weight shift L x 5 Sit/stand w/75% weight on L x 5 Blue foam - rhomberg x 1 min Blue foam - tandem x 30 sec x 2 Green theraband resisted DF/PF, EV/INV B x 15 each? Standing on??blue foam??SLS??L??x 5 for 15 sec??min [...] plantar aspect of left foot* Rock tape medial??1/2 strip medial great toe with inferior pull into abd and along medial aspect ofthe foot inferior to the scar and around the heel; other half strip placed dorsal surface of great toe to mid foot. Full strip under the arch of the foot to secure the lateral piece. Avoiding over the scar.? HEP: Sitting rocker board DF/PF x 10 (gave as HEP) Sitting heel slides x 10 (garus HEP of ankle circles, and yellow theraband ex.?? 06/19/20:Instructed pt to add SLS on the left at home.? Treatment Ideas:Left ankle gentle stretching, PROM and [...] to see pt per POC Start Time: 1050 End Time:1135 Christi Chanel PTA R BUILDER documented in this encounter Plan of Treatment Not on file documented as of this encounter Visit Diagnoses Diagnosis Nontraumatic rupture of tendons of left foot and ankle- Primary documented in this encounter Care Teams Executive Search Consultant Relationship Specialty Start Date End Date Jessica Navarro NP [address] [place] [address] PCP - General 07/26/19 08/22/20 documented as of this encounter
--- OUTSIDE RECORDS SUMMARY | 2024-04-14 18:34 | XMS_ITS | Encounter Summary ---
Author Organization [facility] Medical Group Address [address] [address] Care Team Providers Care Reimbursement Auditor Name Role Phone Jessica Navarro NP Primary Care Provider Reason for Referral * Consultation (Routine) - Closed Specialty Diagnoses / Procedures Referred By Jonas reeves Referred To Contact Physical Therapy Diagnoses Nontraumatic rupture of tendons of left foot and ankle Left foot pain Kishan Broussard MD [address] [address] Phone: tel: fax: [address] [phone] Referral ID Status Reason Start Date Expiration Date V isits Requested Visits Authorized [id number] Closed Specialty Services Required 05/24/2020 06/23/2021 9 9 Question Answer PTRFR PT Evaluate and Treat Therapy options discussed with patient? Yes Location provided for therapy services is: Patient requested/Patient preferred Please select the performing region: [facility] [[id number]] # of visits: 9 Comments Evaluate and Treat Post op Left great toe trigger release. Surgery 04/17/20 3x week / 3 weeks. NESS OPERATIONS COORDINATOR Reason for Visit * Reason Comments Post-op Encounter Details Date Type Department Care Team (Late st Contact Info) Description 05/24/2020 10:30 AM BUSINESS OPERATIONS COORDINATOR Office Visit [facility] [address] [place] [phone] Kishan Broussard MD [address] [place] [address] Nontraumatic rupture of tendons of left foot [...] - Pulse - - Temperature 36.2 ??C (97.2 ??F) 05/24/2020 10:[address] Respiratory Rate - - Oxygen Saturation - - Inhaled Oxygen Concentration - - Weight 88.5 kg (195 lb) 05/24/2020 10:30 AM BUSINESS OPERATIONS COORDINATOR Height 160 cm (5' 2.99 ) 05/24/2020 10:30 AM BUSINESS OPERATIONS COORDINATOR Body Mass Index 34.55 05/24/2020 10:30 AM BUSINESS OPERATIONS COORDINATOR documented in this encounter Progress Notes * Kishan Broussard MD - 05/24/2020 10:30 AM CST Patient returns today 5 weeks postop. She has ongoing pain in the arch with weight-bearing and is walking a little bit on the outside of her foot. She still has some numbness and tingling in the great and 2nd toe. Examination confirms no deformity. Skin is intact. Neurovascular status preserved. Gait pattern is normal. Range of motion is 75% normal in the toes with no evidence of recurrent triggering. Diagnosis-status post left great trigger toe release. Plan-physical therapy 3 times weekly over the next 3 weeks. Return to this office in 4 weeks. NESS OPERATIONS COORDINATOR documented in this encounter Plan of Treatment Scheduled Referrals Name Type Priority Associated Diagnoses Order Schedule Ambulatory referral order to Physical Therapy - Outpatient Referral Routine Nontraumatic rupture of tendons of left foot and ankle Left foot pain 1 Occurrences starting 05/24/2020 until 11/21/2020 documented as of this encounter Visit Diagnoses Diagnosis Nontraumatic rupture of tendons of left foot and ankle- Primary Left foot pain Pain in soft tissues of limb documented in this encounter Care Teams Reimbursement Auditor Relationship Specialty Start Date End Date Jessica Navarro NP [address] [place] [address] PCP - General 07/26/19 08/22/20 documented as of this encounter
--- OUTSIDE RECORDS SUMMARY | 2024-04-14 18:35 | XMS_ITS | Encounter Summary ---
Author Organization [facility] Medical Group Address [address] [address] Care Team Providers Care Commercial Specialist Name Role Phone Jessica Navarro NP Primary Care Provider Reason for Visit * Reason Comments Follow-up Test Results Pain Encounter Details Date Type Department Care Team (Late st Contact Info) Description 03/29/2020 11:00 AM MACHINE ROPE MAKER Office Visit [facility] [address] [place] [address] Kishan Broussard MD [address] [address] Tendinitis of ankle (Primary Dx) Social History [...] - Pulse - - Temperature 36.1 ??C (97 ??F) 03/29/2020 11:09 AM MACHINE ROPE MAKER Respiratory Rate - - Oxygen Saturation - - Inhaled Oxygen Concentration - - Weight 90.3 kg (199 lb) 03/29/2020 11:09 AM MACHINE ROPE MAKER Height 160 cm (5' 3 ) 03/29/2020 11:09 AM MACHINE ROPE MAKER Body Mass Index 35.25 03/29/2020 11:09 AM MACHINE ROPE MAKER documented in this encounter Patient Instructions * Patient Instructions* Kishan Broussard MD - 03/29/2020 11:00 AM MACHINE ROPE MAKER The risks benefits potential complications prognosis for recovery and realistic expectations have been discussed with the patient and they are in agreement with the proposed plan. INE ROPE MAKER documented in this encounter Progress Notes * Kishan Broussard MD - 03/29/2020 11:00 AM CST Patient returns today following MRI scan this confirms tendinitis both the flexor pollicis longus as well as the peroneus tendons laterally. Her symptoms of trigger great toe with locked down per cyst. Tenderness is over the flexor hallucis tendon sheath posteriorly and inferiorly to the medial malleolus. MRI scan confirms tendinitis as mentioned. Diagnosis-left great trigger toe with locked down. Plan-surgical intervention by left great trigger toe release under local anesthesia is indicated. The risks benefits potential complications prognosis for recovery and realistic expectations have been discussed with the patient and they are in agreement with the proposed plan. INE ROPE MAKER documented in this encounter Plan of Treatment Not on file documented as of this encounter Visit Diagnoses Diagnosis Tendinitis of ankle- Primary documented in this encounter Care Teams Commercial Specialist Relationship Specialty Start Date End Date Melanie, Jessica Pinto NP [address] [place] [address] PCP - General 07/26/19 08/22/20 documented as of this encounter
--- OUTSIDE RECORDS SUMMARY | 2024-04-14 18:35 | XMS_ITS | Encounter Summary ---
Author Organization [facility] Healthcare Address [address] [place] [address] Care Team Providers Care Demo Specialist Name Role Phone Jessica Navarro NP Primary Care Provider Encounter Details Date Type Department Care Team (Late st Contact Info) Description 04/14/2020 7:30 AM PARTY PLAN SALES AGENT Lab [address] [phone] Kishan Broussard MD [address] [place] [phone] Pre-procedure lab exam Discharge Disposition: Discharge to home or self [...] on file documented as of this encounter Discharge Disposition Disposition Code Departure Means Destination Discharge to home or self care documented in this encounter Plan of Treatment Not on file documented as of this encounter Procedures Procedure Name Priority Date/Time Associated Diagnosis Comments COVID-19 CORONAVIRUS RNA Routine 04/14/2020 7:40 AM PARTY PLAN SALES AGENT Pre-procedure lab exam documented in this encounter Results * COVID-19 Coronavirus RNA Nasopharyngeal (04/14/2020 7:40 AM PARTY PLAN SALES AGENT) COVID-19 RNA Not Detected [facility] ([place]) Comment: Testing performed as a component of ??a specimen pool. ??Negative results should be treated as presumptive and, if inconsistent with clinical signs and symptoms or necessary for patient management, pooled samples should be tested individually. Negative results do not preclude SARS-CoV-2 infection and must not be used as the sole basis for patient management decisions. Negative results must be considered in the context of a patient? s recent exposures, history, presence of clinical signs and symptoms consistent with COVID-19. Interpretive Data Testing performed by the [facility] Molecular Infectious Disease Laboratory. The 2018-Novel Coronavirus Assay (COVID-19) Real Time RT-PCR assay is for in vitro diagnostic use under FDA emergency use authorization only. A negative RT-PCR result does not preclude infection with COVID-19 and should not be used as the sole basis for treatment or other patient management decisions. Additional sample types have been validated according to CLIA regulations. ?? Current Interpretive Data was last revised on 2019. First COVID-19 test? Unknown [facility] ([place]) Comment:Testing performed by : [facility], [address] [place] [address], [place]., [address] Employeed in healthcare? Unknown [facility] ([place]) Comment:Testing performed by : [facility], [address] [place] [address], [place] [address] status? No [facility] ([place]) Comment:Testing performed by : [facility], [address] [place] [address], [place] [address] Group care resident? No [facility] ([place]) Comment:Testing performed by : [facility], [address] [place] [address]., [address] Hospitalized? Unknown [facility] ([place]) Comment:Testing performed by : [address] [place] [address] Is patient in ICU? Unknown [facility] ([place]) Comment:Testing performed by : [facility], [address] [place]., [address] Symptomatic as defined by CDC? No [facility] ARGUELL[facility] ([place]) Comment:Testing performed by : [facility], [address] [place]., [address] Nasopharyngeal 04/14/2020 7: 40 AM PARTY PLAN SALES AGENT 04/14/2020 1:22 PM PARTY PLAN SALES AGENT Narrative [facility] ARGUELL[facility] ([place]) - 04/15/2020 2:37 PM PARTY PLAN SALES AGENT What is the reason for testing?->Screening prior to scheduled procedure or surgery Kishan Broussard MD LAB MICROBIOLOGY - [facility] ORDERABLES Final Result [facility] ARGUELL[facility] ([place]) 1 [facility] [place] [address] documented in this encounter Visit Diagnoses Diagnosis Pre-procedure lab exam Pre-procedural laboratory examination documented in this encounter Care Teams Demo Specialist Relationship Specialty Start Date End Date Navarro, Jessica Pinto NP [address] [place] [address] PCP - General 07/26/19 08/22/20 documented as of this encounter
--- OUTSIDE RECORDS SUMMARY | 2024-04-14 18:35 | XMS_ITS | Encounter Summary ---
Author Organization [facility] Address [address] [email or web address] [address] Phone Care Team Providers Care Patcher Helper Name Role Phone Navarro, Jessica Pinto NP Primary Care Provider Encounter Details Date Type Department Care Team (Late st Contact Info) Description 04/03/2020 Orders Only [facility] [address] [email or web address] [address] Scanning, Provider Social History Tobacco Use Types Packs/Day Years [...] Procedure Name Priority Date/Time Associated Diagnosis Comments SCAN - RADIOLOGY/IMAGING 04/03/2020 10:55 AM BEATER AND PULPER FEEDER documented in this encounter Results * SCAN - RADIOLOGY/IMAGING (04/03/2020 10:55 AM BEATER AND PULPER FEEDER) Anatomical Region Laterality Modality Other us Provider Scanning Final Result documented in this encounter Visit Diagnoses Not on filedocumented in this encounter Care Teams Patcher Helper Relationship Specialty Start Date End Date Navarro, Jessica Pinto NP [address] [place] [address] PCP - General 07/26/19 08/22/20 documented as of this encounter
--- OUTSIDE RECORDS SUMMARY | 2024-04-14 18:35 | XMS_ITS | Encounter Summary ---
Author Organization [facility] Address [address] [email or web address] [address] Phone Care Team Providers Care Biometrician Name Role Phone Navarro, Jessica Pinto NP Primary Care Provider Encounter Details Date Type Department Care Team (Late st Contact Info) Description 03/27/2020 Orders Only [facility] [address] [email or web address] [address] Scanning, Provider Social History Tobacco [...] Date/Time Associated Diagnosis Comments SCAN - RADIOLOGY/IMAGING 03/27/2020 1:12 PM RECRUITMENT ASSISTANT documented in this encounter Results * SCAN - RADIOLOGY/IMAGING (03/27/2020 1:12 PM RECRUITMENT ASSISTANT) Anatomical Region Laterality Modality Other us Provider Scanning Final Result documented in this encounter Visit Diagnoses Not on filedocumented in this encounter Care Teams Biometrician Relationship Specialty Start Date End Date Navarro, Jessica Pinto NP [address] [place] [address] PCP - General 07/26/19 08/22/20 documented as of this encounter
--- OUTSIDE RECORDS SUMMARY | 2024-04-14 18:35 | XMS_ITS | Encounter Summary ---
Author Organization [facility] Address [address] [place] [address] Care Team Providers Care Harp Regulator Name Role Phone Jessica Navarro NP Primary Care Provider [phone] Reason for Referral * Diagnostic Imaging (Routine) - Closed Specialty Diagnoses / Procedures Referred By Jonas reeves Referred To Contact Diagnoses Rupture of left Achilles tendon, subsequent encounter Procedures MRI ANKLE LEFT WO CONTRAST Kishan Broussard MD [address] [place] [address] Phone: tel: fax: [facility] [address] [place] [address] [place] [address] Phone: tel: fax: Referral ID Status Reason Start Date Expiration Date Visits Re quested Visits Authorized [id number] Closed 03/19/2020 09/16/2020 1 1 ON WINDER Reason for Visit * Reason Comments Pain Follow-up Pain Follow-up Encounter Details Date Type Department Care Team (Late st Contact Info) Description 03/19/2020 10:30 AM RIBBON WINDER Office Visit [facility] [address] [place] [address] Kishan Broussard MD [address] [place] [address] Tendinitis of ankle (Primary Dx); Nontraumatic rupture of tendons of left foot and ankle; Short Achilles tendon (acquired), left ankle; Rupture of left Achilles tendon, subsequent encounter Social History Tobacco Use Types Packs/Day [...] - - Temperature 36.1 ??C (96.9 ??F) 03/19/2020 10:[address] Respiratory Rate - - Oxygen Saturation - - Inhaled Oxygen Concentration - - Weight 90.3 kg (199 lb) 03/19/2020 10:42 AM RIBBON WINDER Height 160 cm (5' 3 ) 03/19/2020 10:42 AM RIBBON WINDER Body Mass Index 35.25 03/19/2020 10:42 AM RIBBON WINDER documented in this encounter Progress Notes * Kishan Broussard MD - 03/19/2020 10:30 AM CST Patient returns today for follow-up of bilateral left greater than right ankle pain medially and posteriorly. She indicates that the Medrol Dosepak was of no benefit. She continues to have unaltered pain. Examination confirms tenderness over the medial and lateral aspects of the knee with slight poppingin the peroneus longus/brevis region suggestive of possible partial tendon rupture. There is tenderness over the Achilles as well although there is no palpable gap this is suspicious for a partial rupture. Diagnosis-bilateral left greater than right ankle pain/possible tendon rupture. Plan-left ankle MRI scan. Return following investigation. ON WINDER documented in this encounter Plan of Treatment Scheduled Orders Name Type Priority Associated Diagnoses Orde r Schedule MRI ANKLE LEFT WO CONTRAST Imaging Schedule Routine, Read Routine (OP Routine) Rupture of left Achilles tendon, subsequent encounter Expected: 03/19/2020, Expires: 03/19/2021 documented as of this encounter Visit Diagnoses Diagnosis Tendinitis of ankle- Primary Nontraumatic rupture of tendons of left foot and ankle Short Achilles tendon (acquired), left ankle Rupture of left Achilles tendon, subsequent encounter documented in this encounter Care Teams Harp Regulator Relationship Specialty Start Date End Date Navarro, Jessica Pinto NP [address] [place] [address] PCP - General 07/26/19 08/22/20 documented as of this encounter
--- OUTSIDE RECORDS SUMMARY | 2024-04-14 18:35 | XMS_ITS | Encounter Summary ---
Author Organization [facility] Healthcare Address [address] [place] [address] Care Team Providers Care Patcher Helper Name Role Phone Jessica Navarro NP Primary Care Provider Encounter Details Date Type Department Care Team (Late st Contact Info) Description 03/26/2020 [facility] [address] [place] [id number] Social History Tobacco Use Types Packs/Day Years [...] Name Priority Date/Time Associated Diagnosis Comments MRI TRANSFER OF OUTSIDE FILMS Routine 03/26/2020 12:00 AM VORTEX OPERATOR documented in this encounter Results * MRI Outside Reference (03/26/2020 12:00 AM VORTEX OPERATOR) Narrative [facility] - 11/06/2023 3:24 PM CDT This order has been auto-finalized and does not contain a result. us Provider Transcribed Order IMG MRI PROCEDURES Fi nal Result [facility] documented in this encounter Visit Diagnoses Not on filedocumented in this encounter Care Teams Patcher Helper Relationship Specialty Start Date End Date Navarro, Jessica Pinto NP [address] [place] [address] PCP - General 07/26/19 08/22/20 documented as of this encounter
--- OUTSIDE RECORDS SUMMARY | 2024-04-14 18:37 | XMS_ITS | Encounter Summary ---
Author Organization [facility] Healthcare Address [address] [place] [address] Care Team Providers Care Cardiovascular Operating Room Nurse Name Role Phone Jessica Navarro NP Primary Care Provider [phone] Reason for Visit * Reason Comments PT Initial Eval * Consultation (Routine) - Closed Specialty Diagnoses / Procedures Referred By Jonas reeves Referred To Contact Physical Therapy Diagnoses Other instability, right ankle Jessica Navarro NP [address] [place] [address] Phone: tel: fax: [address] [phone] Referral ID Status Reason Start Date Expiration Date V isits Requested Visits Authorized [id number] Closed Specialty Services Required 01/06/2020 02/04/2021 24 24 Encounter Details Date Type Department Care Team (Late st Contact Info) Description 01/17/2020 11:00 AM CDT Therapy [facility] Physical Therapy [address] [place] [phone] Seema Oakley, PT Other instability, right ankle (Primary Dx) Social History Tobacco Use [...] Progress Notes * Seema Oakley, PT - 01/17/2020 11:00 AM CDT PT Initial Evaluation *PLEASE SIGN AND FAX BACK TO [phone]* Lilli Santos 1995 24 y.o. female Jessica Navarro, ANA LILIA [address] [place] [address] ICD-9-CM ICD-10-CM 1. Other instability, right ankle 718.87 M25.371 Ambulatory referral order to Physical Therapy - Subjective: History of Present Condition Description of onset: Pt states her ankle pain started about 3 months ago. She denies having any injury recently. She states 2 years ago she fell off a porch and sprained her R ankle severely. She states her R ankle hurts along the inside aspect along with swelling. She states she would have some pinching pain too. She states her L ankle started hurting about a month after the R ankle. She states the doctor told her that she was having calcium build up on her achilles tendon. Pt states her L big toe will lock up on her sometimes. Pt completes LEFS scoring 45% impairment. She states she has severe pain when going up and down stairs. 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 No aggressive bone) Treatments Current treatment: Physical therapy Patient/Caregiver Goals Goals for therapy: Decreased pain, Increased motion, Increased strength Objective: POSTURE: Pt stands with no calcaneal varus or valgus and neutral arch bilaterally. GAIT: Pt ambulates with no major deviations noted. ROM: AROM ankle: DF L = -10 deg, R = 0 deg PF L = 58 deg, R = 60 deg INV L = 20 deg, R = 32 deg EV L = 5 deg, R = 10 deg STRENGTH: Standing ankle PF: R = 4/5, L = 3+/5 Seated DF R = 4+/5, L 4-/5 Seated INV R = 4+/5, L = 3-/5 Seated EV R = 4+/5, L = 3-/5 EDEMA: No edema noted B ankles/feet today. Pt states she has been off of her feet which has helped the swelling. PALPATION: Pt is moderately tender along medial aspect of L ankle at medial malleolus and area inferior to this. She is also moderately tender along L achilles tendon. She is minimally tender along medial aspect of R ankle just inferior to medial malleolus. No tenderness noted along R achilles tendon. Treatment Provided: HEP instruction: Exercises performed on B ankles/feet - Seated calf stretch with sheet, Ankle AROM DF/PF and INV/EV, Ankle circles, and Ankle alphabet US (pulsed) to L ankle along medial aspect and achilles tendon X 8 min Rock Tape to B ankles for pain TREATMENT IDEAS: *B ankles* Seated Rocker Board - fwd/bkwd Ankle circles Ankle alphabet Seated ankle DF/PF and INV/EV Seated toe flexion with towel Seated BAPS board Calf stretch with sheet Tband for ankle DF, PF, INV, EV *progress to WB activities as pt tolerates* US (pulsed) to L achilles and medial L ankle Other modalities - prn Rock Tape - prn Assessment/Plan: Assessment Impairments: lacks appropriate home exercise program, impaired physical strength, muscle length, abnormal or restricted ROM, pain with function, activity tolerance, flexibility Assessment details: Pt will benefit from PT to address impairments. Prognosis: good Prognosis details: Pt is pleasant and cooperative. Goals STG 1:: Pt to be independent and compliant with HEP in 2 weeks. Goal status: New STG 2:: Increase AROM L ankle DF = 0 deg, INV = 30 deg, EV = 10 deg for improved mobility with lesspain in 2-3 weeks. Goal status: New STG 3:: Decrease pt's c/o L ankle pain to less than 4/10 throughout day with all activities in 3 weeks. Goal status: New STG 4:: Decrease tenderness of L medial ankle and achilles regions to minimal with palpation to decrease pain complaints in 3 weeks. Goal status: New LTG 1:: Increase AROM B ankle DF = 10 deg for improved ability to ascend/descend stairs without pain by D/C. Goal status: New LTG 2:: Increase strength of L ankle = 4+/5 throughout except standing PF = 4/5 for improved functional mobility with less pain by D/C. Goal status: New LTG 3:: Pt to score less than 30% impairment on LEFS indicating improved function with less pain byD/C. Goal status: New Plan Start time: 1051 End time: 1150 Therapy options: will be seen for skilled therapy services Planned modality interventions: thermotherapy (hydrocollator packs), cryotherapy, ultrasound(prn) Planned therapy interventions: home exercise program, strengthening, stretching, balance/weight-bearing training, joint mobilization, Kinesiotaping, flexibility, manual therapy, functional ROM exercises, soft tissue mobilization Frequency: 2 x/week Duration in visits: 12 visits Discussed with: patient Seema Oakley PT documented in this encounter Plan of Treatment Not on file documented as of this encounter Visit Diagnoses Diagnosis Other instability, right ankle- Primary documented in this encounter Orders Outpatient Referral Count Last Ordered Date Fir st Ordered Date AMB REFERRAL ORDER TO PHYSICAL THERAPY 1 documented in this encounter Care Teams Cardiovascular Operating Room Nurse Relationship Specialty Start Date End Date Jessica Navarro NP [address] [place] [address] PCP - General 07/26/19 08/22/20 documented as of this encounter
--- OUTSIDE RECORDS SUMMARY | 2024-04-14 18:37 | XMS_ITS | Encounter Summary ---
Author Organization [facility] Healthcare Address [address] [place] [address] Care Team Providers Care Dial Buffer Name Role Phone Jessica Navarro NP Primary Care Provider Reason for Visit * Reason Comments PT Treatment Encounter Details Date Type Department Care Team (Late st Contact Info) Description 02/13/2020 1:00 PM CDT Therapy [facility] [address] [place] [phone] Seema Oakley, PT Other instability, right ankle (Primary Dx); Other instability, left ankle Social History Tobacco Use Types Packs/Day [...] Progress Notes * Seema Oakley, PT - 02/13/2020 1:00 PM CDT PT Daily Treatment Note Lilli Santos 1995 Subjective: Pt states she called her doctor and is going to see her doctor on Thursday due to her ankles not feeling any better. Pt states she went to the o on Thursday and had a lot of pain after going. Pt states she has been wearing the tubigrip on her ankles/feet all of the time. She states PT helpstemporarily but then the tightness and pain returns the next day. LEFS: 68% impairment Pain: 5/10 B medial feet and up back of L achilles Objective: HEP: Pt reports doing HEP twice per day which only helps temporarily. Dispensed yellow theraband to pt to perform tband exercises at home. AROM: L ankle DF = -14 deg L ankle INV = 23 deg L ankle EV = 9 deg R ankle DF = -11 deg PROM: B ankle DF = 0 deg with pt c/o increased medial foot pain. STRENGTH: Standing ankle PF L = 3+/5 L ankle DF = 4-/5 L ankle INV = 3+/5 L ankle EV = 3+/5 PALPATION: Pt is moderately tender along medial aspects of B ankles/feet and along L achilles tendon. Treatment Provided: Re-assessment US (pulsed) to B ankle/foot along medial aspect X??8??min each Assessment: Pt has made little to no progress with PT stating her ankle/foot pain has not really improved with PT. Pt to continue with HEP as instructed. Goals STG 1:: Pt to be independent and compliant with HEP in 2 weeks. Goal status: MET STG 2:: Increase AROM L ankle DF = 0 deg, INV = 30 deg, EV = 10 deg for improved mobility with lesspain in 2-3 weeks. Goal status: NOT MET STG 3:: Decrease pt's c/o L ankle pain to less than 4/10 throughout day with all activities in 3 weeks. Goal status: NOT MET STG 4:: Decrease tenderness of L medial ankle and achilles regions to minimal with palpation to decrease pain complaints in 3 weeks. Goal status: NOT MET LTG 1:: Increase AROM B ankle DF = 10 deg for improved ability to ascend/descend stairs without pain by D/C. Goal status: NOT MET LTG 2:: Increase strength of L ankle = 4+/5 throughout except standing PF = 4/5 for improved functional mobility with less pain by D/C. Goal status: NOT MET LTG 3:: Pt to score less than 30% impairment on LEFS indicating improved function with less pain byD/C. Goal status: NOT MET Plan: Hold PT until pt returns to the doctor later this week. Will D/C PT if pt does not return to PT. Start Time: 1300 End Time: 1344 Seema Oakley PT documented in this encounter Plan of Treatment Not on file documented as of this encounter Visit Diagnoses Diagnosis Other instability, right ankle- Primary Other instability, left ankle documented in this encounter Care Teams Dial Buffer Relationship Specialty Start Date End Date Navarro, Jessica Pinto NP [address] [place] [address] PCP - General 07/26/19 08/22/20 documented as of this encounter
--- OUTSIDE RECORDS SUMMARY | 2024-04-14 18:37 | XMS_ITS | Encounter Summary ---
Author Organization [facility] Healthcare Address [address] [place] [address] Care Team Providers Care Quality Control Manager Name Role Phone Jessica Navarro NP Primary Care Provider [phone] Reason for Visit * Reason Comments PT Treatment Encounter Details Date Type Department Care Team (Late st Contact Info) Description 01/25/2020 10:45 AM CDT Therapy [facility] Physical [facility] [address] [place] [id number] Christi Chanel, CIGAR PACKING EXAMINER Other instability, right ankle (Primary Dx) Social [...] this encounter Progress Notes * Christi Chanel, CIGAR PACKING EXAMINER - 01/25/2020 10:45 AM CDT PT Daily Treatment Note Lilli Santos 1995 Subjective: Pt states HEP is going well. Pain: L ankle 5/10, R ankle 2-3/10 Objective: See treatment provided Treatment Provided: Seated rocker board, fwd/bkwd x 20 each BAPS board L2 ankle INV/EV x 15 each LE BAPS board L2 , circular motion x 15 each Sitting PF/DFx15 ?? Yellow theraband DF, and PF x 15 each, Ev/INV w/tband yellow x 15 each. (no complaint of pain today) ?? US (pulsed) to L ankle along medial aspect and achilles tendon X 8 min Rock Tape to B ankles for pain ?? (no new HEP given today) HEP instruction: ??Exercises performed on B ankles/feet - Seated calf stretch with sheet, Ankle AROM DF/PF and INV/EV, Ankle circles, and Ankle alphabet ? TREATMENT IDEAS: *B ankles* Seated Rocker Board - fwd/bkwd Ankle circles Ankle alphabet Seated ankle DF/PF and INV/EV Seated toe flexion with towel Seated BAPS board Calf stretch with sheet Tband for ankle DF, PF, INV, EV *progress to WB activities as pt tolerates* US (pulsed) to L achilles and medial L ankle Other modalities - prn Rock Tape - prn ?? Assessment: Goals are ongoing Pt tolerated treatment well Plan:Continue to see pt per POC Start Time: 1045 End Time: 1140 Christi Chanel PTA documented in this encounter Plan of Treatment Not on file documented as of this encounter Visit Diagnoses Diagnosis Other instability, right ankle- Primary documented in this encounter Care Teams Quality Control Manager Relationship Specialty Start Date End Date Jessica Navarro NP [address] [place] [address] PCP - General 07/26/19 08/22/20 documented as of this encounter
--- OUTSIDE RECORDS SUMMARY | 2024-04-14 18:37 | XMS_ITS | Encounter Summary ---
Author Organization [facility] Healthcare Address [address] [place] [address] Care Team Providers Care Dough Maker Name Role Phone Jessica Navarro NP Primary Care Provider Reason for Visit * Reason Comments PT Treatment Encounter Details Date Type Department Care Team (Late st Contact Info) Description 02/06/2020 2:45 PM CDT Therapy [facility] [address] [place] [phone] Jaye Zayas, PT Other instability, right ankle (Primary Dx) [...] Progress Notes * Jaye Zayas, PT - 02/06/2020 2:45 PM CDT PT Daily Treatment Note Lilli Danielle 1995 Subjective: Pt states her ankles have been more sore and swollen since the last visit. She states the next day the pain was up to 8/10 at night and it kept her up all night. She states it felt like the pain was radiating up her legs. She states it kept her up the second night also. She states the pain has settled back to normal around a 5/10. She states there is still some swelling and she can't get a shoe on and has been wearing her flip flops. Pain: 6/10 L ankle/foot and 3/10 R ankle/foot Objective: Noted some mild edema on each medial aspect of the ankle just inferior to the medial malleolus. Issued tubigrip today. Omitted wt bearing ex today due to pt being in more pain. Treatment Provided: Seated BAPS board each foot/ankle: Fwd/bkwd x15, side to side x 15 and circles x15 each. Bilat ankle PF/DF x 20 Yellow theraband ankle DF/PF, EV/INV x 10-15 each on each side. US (pulsed) to B ankle/foot along medial aspect X 8 min each Rock Tape to medial B ankles/feet for pain (posterior tibialis tendon) - X Issued tubigrip size C to wear for some compression and possible edema control. Standing in parallel bars - rocker board, fwd/bkwd and L/R X 15 each* - tandem stance X 30 sec each foot forward* - blue foam rhomberg stance X 30 sec eyes open, 30 sec eyes closed* Standing heel and toe raises X 10 each* ??HEP: ??Exercises performed on B ankles/feet - Seated calf stretch with sheet, Ankle AROM DF/PF and INV/EV, Ankle circles, and Ankle alphabet ?Assessment: Pt tolerated treatment well stating her feet and ankles feel better after the treatment and tape. She will benefit from continued PT to address ongoing goals. Plan: Continue PT as per plan of care progressing therapeutic exercises as pt tolerates. Start Time: 1445 End Time: 1545 Jaye Zayas PT, DPT documented in this encounter Plan of Treatment Not on file documented as of this encounter Visit Diagnoses Diagnosis Other instability, right ankle- Primary documented in this encounter Care Teams Dough Maker Relationship Specialty Start Date End Date Jessica Navarro NP [address] [place] [address] PCP - General 07/26/19 08/22/20 documented as of this encounter
--- OUTSIDE RECORDS SUMMARY | 2024-04-14 18:37 | XMS_ITS | Encounter Summary ---
Author Organization [facility] Healthcare Address [address] [place] [address] Care Team Providers Care Gear Setter Name Role Phone Jessica Navarro NP Primary Care Provider Reason for Visit * Reason Comments PT Treatment Encounter Details Date Type Department Care Team (Late st Contact Info) Description 01/23/2020 1:45 PM CDT Therapy [facility] Physical Therapy [address] [place] [phone] Jaye Zayas, PT Other instability, right ankle [...] Progress Notes * Jaye Zayas, PT - 01/23/2020 1:45 PM CDT PT Daily Treatment Note Lilli Danielle 1995 Subjective: Pt states her left ankle pain is a 6/10 and the right ankle is a 3- 4/10. She states shehas been working on the ex. She states the taping seemed to help the right foot really well and theleft foot somewhat. She states she was able to keep it on about 3 days. Pain: 3-4 right ankle, 6/10, left ankle. Objective: Working with pt on some AROM and some resistance ex. Treatment Provided: Seated rocker board, fwd/bkwd x 20 each BAPS board ankle INV/EV x 15 each LE BAPS board, circular motion x 15 each Sitting PF/DFx15 Yellow theraband DF, and PF x 15 each, Ev/INV x 10 each. (pt reported pain) US (pulsed) to L ankle along medial aspect and achilles tendon X 8 min Rock Tape to B ankles for pain (no new HEP given today) HEP instruction: Exercises performed on B ankles/feet - Seated calf stretch with sheet, Ankle AROM DF/PF and INV/EV, Ankle circles, and Ankle alphabet ?? TREATMENT IDEAS: *B ankles* Seated Rocker Board - fwd/bkwd Ankle circles Ankle alphabet Seated ankle DF/PF and INV/EV Seated toe flexion with towel Seated BAPS board Calf stretch with sheet Tband for ankle DF, PF, INV, EV *progress to WB activities as pt tolerates* US (pulsed) to L achilles and medial L ankle Other modalities - prn Rock Tape - prn Assessment: Pt nate treatment fair. She reported pain with all the ex. Plan: Cont PT as per POC Start Time: 1355 End Time: 1435 Jaye Zayas PT, DPT documented in this encounter Plan of Treatment Not on file documented as of this encounter Visit Diagnoses Diagnosis Other instability, right ankle- Primary documented in this encounter Care Teams Gear Setter Relationship Specialty Start Date End Date Melanie, Jessica Pinto NP [address] [place] [address] PCP - General 07/26/19 08/22/20 documented as of this encounter
--- OUTSIDE RECORDS SUMMARY | 2024-04-14 18:37 | XMS_ITS | Encounter Summary ---
Author Organization [facility] Healthcare Address [address] [place] [address] Care Team Providers Care Any Commodity Buyer Name Role Phone Jessica Navarro NP Primary Care Provider Reason for Visit * Reason Comments PT Treatment Encounter Details Date Type Department Care Team (Late st Contact Info) Description 01/30/2020 2:30 PM CDT Therapy [facility] [address] [place] [id number] Seema Oakley, PT Other instability, right ankle [...] Progress Notes * Seema Oakley, PT - 01/30/2020 2:30 PM CDT PT Daily Treatment Note Lilli Danielle 1995 Subjective: Pt states her ankles and feet hurt today. Pain: 6/10 L ankle/foot and 3/10 R ankle/foot Objective: Progressed to closed chain exercises today. Moderate tenderness noted along medial ankles and feet bilaterally along posterior tibialis tendons. Treatment Provided: Standing in parallel bars - rocker board, fwd/bkwd and L/R X 15 each - tandem stance X 30 sec each foot forward - blue foam rhomberg stance X 30 sec eyes open, 30 sec eyes closed Standing heel and toe raises X 10 each ?? Red theraband - B ankle DF and PF x 10 each - B ankle EV and INV x 10 each ?? US (pulsed) to B ankle/foot along medial aspect X 10 min Rock Tape to medial B ankles/feet for pain (posterior tibialis tendon) - X ?? HEP: ??Exercises performed on B ankles/feet - Seated calf stretch with sheet, Ankle AROM DF/PF and INV/EV, Ankle circles, and Ankle alphabet ? Assessment: Pt tolerated treatment well stating her feet and ankles feel better after the treatmentand tape. She will benefit from continued PT to address ongoing goals. Plan: Continue PT as per plan of care progressing therapeutic exercises as pt tolerates. Start Time: 1426 End Time: 1506 Seema Oakley PT documented in this encounter Plan of Treatment Not on file documented as of this encounter Visit Diagnoses Diagnosis Other instability, right ankle- Primary Other instability, left ankle documented in this encounter Care Teams Any Commodity Buyer Relationship Specialty Start Date End Date Jessica Navarro NP [address] [place] [address] PCP - General 07/26/19 08/22/20 documented as of this encounter
--- OUTSIDE RECORDS SUMMARY | 2024-04-14 18:37 | XMS_ITS | Encounter Summary ---
Author Organization [facility] Healthcare Address [address] [place] [address] Care Team Providers Care Criminal Defense Lawyer Name Role Phone Jessica Avalos NP Primary Care Provider [phone] Reason for Referral * Diagnostic Imaging (Routine) - Closed Specialty Diagnoses / Procedures Referred By Jonas reeves Referred To Contact Diagnoses Localized swelling, mass and lump, neck Procedures US Head Neck Soft Tissue Jessica Avalos NP [address] [place] [address] Phone: tel: fax: [address] [phone] Referral ID Status Reason Start Date Expiration Date Visits Re quested Visits Authorized [id number] Closed 12/27/2019 01/25/2021 1 1 Reason for Visit * Diagnostic Imaging (Routine) - Closed Specialty Diagnoses / Procedures Referred By Jonas reeves Referred To Contact Diagnoses Localized swelling, mass and lump, neck Procedures US Head Neck Soft Tissue Jessica Avalos NP [address] [place] [address] Phone: tel: fax: [address] [phone] Referral ID Status Reason Start Date Expiration Date Visits Re quested Visits Authorized [id number] Closed 12/27/2019 01/25/2021 1 1 Encounter Details Date Type Department Care Team (Latest Contact Info) Description 01/25/2020 11:58 AM CDT - 01/25/2020 11:59 PM CDT Hospital Encounter [facility] [address] [place] [address] Nery Ireland MD [address] [place] [address] Jessica Avalos NP [address] [place] [address] Localized swelling, mass and lump, neck Discharge Disposition: Discharge to home or self [...] this encounter Medications at Time of Discharge ondansetron ODT (ZOFRAN-ODT) 4 mg disintegrating tablet Dissolve 1 tablet oral every 4 hours as needed for nausea or vomiting. 15 tablet 07/26/2019 0 documented as of this encounter Discharge Disposition Disposition Code Departure Means Destination Discharge to home or self care documented in this encounter Plan of Treatment Not on file documented as of this encounter Procedures Procedure Name Priority Date/Time Associated Diagnosis Comments US SOFT TISSUE HEAD NECK Schedule Routine, Read Routine (OP Routine) 01/25/2020 12:33 PM CDT Localized swelling, mass and lump, neck documented in this encounter Results * US Head Neck Soft Tissue (01/25/2020 12:33 PM CDT) Anatomical Region Laterality Modality Head and Neck N/A Ultrasound 01/25/2020 3:45 PM CDT Impressions 01/25/2020 3:48 PM CDT No acute findings to explain the patient's symptoms. ?? Electronically signed by: Nick Velez M.D. Narrative 01/25/2020 3:48 PM CDT EXAM: US SOFT TISSUE HEAD NECK ORDERING HEALTHCARE PROVIDER: JESSICA AVALOS HISTORY: Patient reports palpable area to right posterior aspect of neck, 4cm lateral from cervical spine, for approximately 3-6 months.. COMPARISON: None available TECHNIQUE: Focused ultrasound in the region of concern with grayscale and color Doppler images FINDINGS: No soft tissue mass. No suspicious adenopathy. No fluid collection. If further evaluation is clinically necessary, CT could be considered. Procedure Note Nick Velez MD - 01/25/2020 EXAM: US SOFT TISSUE HEAD NECK ORDERING HEALTHCARE PROVIDER: JESSICA AVALOS HISTORY: Patient reports palpable area to right posterior aspect of neck, 4cm lateral from cervical spine, for approximately 3-6 months.. COMPARISON: None available TECHNIQUE: Focused ultrasound in the region of concern with grayscale and color Doppler images FINDINGS: No soft tissue mass. No suspicious adenopathy. No fluid collection. If further evaluation is clinically necessary, CT could be considered. IMPRESSION: No acute findings to explain the patient's symptoms. Electronically signed by: Nick Velez M.D. Jessica Avalos NP IMG US PROCEDURES Final Resu lt documented in this encounter Visit Diagnoses Diagnosis Localized swelling, mass and lump, neck Swelling, mass, or lump in head and neck documented in this encounter Care Teams Criminal Defense Lawyer Relationship Specialty Start Date End Date Jessica Avalos NP [address] [place] [address] PCP - General 07/26/19 08/22/20 documented as of this encounter
--- OUTSIDE RECORDS SUMMARY | 2024-04-14 18:37 | XMS_ITS | Encounter Summary ---
Author Organization [facility] Healthcare Address [address] [place] [address] Care Team Providers Care Rug Setter Velvet Name Role Phone Jessica Avalos NP Primary Care Provider Reason for Referral * Diagnostic Imaging (Routine) - Closed Specialty Diagnoses / Procedures Referred By Contac t Referred To Contact Diagnoses Other instability, left ankle Procedures XR Ankle Left 3 or More Views Jessica Avalos NP [address] [place] [address] Phone: tel: fax: [address] [phone] Referral ID Status Reason Start Date Expiration Date Visits Re quested Visits Authorized [id number] Closed 12/27/2019 01/25/2021 1 1 * Diagnostic Imaging (Routine) - Closed Specialty Diagnoses / Procedures Referred By Contac t Referred To Contact Diagnoses Pain in right ankle and joints of right foot Procedures XR Ankle Right 3 or More Views Jessica Avalos NP [address] [place] [address] Phone: tel: fax: [address] [phone] Referral ID Status Reason Start Date Expiration Date Visits Re quested Visits Authorized [id number] Closed 11/25/2019 12/24/2020 1 1 Reason for Visit * Diagnostic Imaging (Routine) - Closed Specialty Diagnoses / Procedures Referred By Jonas t Referred To Contact Diagnoses Other instability, left ankle Procedures XR Ankle Left 3 or More Views Jessica Avalos NP [address] [place] [address] Phone: tel: fax: [address] [phone] Referral ID Status Reason Start Date Expiration Date Visits Re quested Visits Authorized [id number] Closed 12/27/2019 01/25/2021 1 1 Encounter Details Date Type Department Care Team (Latest Contact Info) Description 12/28/2019 2:19 PM CDT - 12/28/2019 11:59 PM CDT Hospital Encounter [facility] [address] [place] [address] Nery Ierland MD [address] [place] [phone] Jessica Avalos NP [address] [place] [address] Pain in right ankle and joints of right foot; Other instability, left ankle Discharge Disposition: Discharge to home or [...] Priority Date/Time Associated Diagnosis Comments XR ANKLE RIGHT 3 OR MORE VIEWS Schedule Routine, Read Routine (OP Routine) 12/28/2019 2:41 PM CDT Pain in right ankle and joints of right foot XR ANKLE LEFT 3 OR MORE VIEWS Schedule Routine, Read Routine (OP Routine) 12/28/2019 2:41 PM CDT Other instability, left ankle documented in this encounter Results * XR Ankle Left 3 or More Views (12/28/2019 2:41 PM CDT) Anatomical Region Laterality Modality Lower Extremities, Ankle Left Compute d Radiography 12/28/2019 3:19 PM CDT Impressions 12/28/2019 3:19 PM CDT 1. ??No acute osseous abnormality involving either foot. 2. ??Mild osteoarthritis of the bilateral ankles/hindfeet. Electronically signed by: Sagar Key M.D. Narrative 12/28/2019 3:19 PM CDT EXAMINATION: XR ANKLE RIGHT 3 OR MORE VIEWS, XR ANKLE LEFT 3 OR MORE VIEWS ORDERING HEALTHCARE PROVIDER: JESSICA AVALSO HISTORY: Bilateral foot pain radiating into the legs for the past 2 months. TECHNIQUE: AP, oblique, and lateral views of the bilateral ankles. COMPARISON: ??None available FINDINGS: Right ankle: ??No acute fracture or dislocation. ??No aggressive bone lesion. ??Mild osteoarthritic spurring at the ankle and dorsal hindfoot. Left ankle: ??No acute fracture or dislocation. ??No aggressive bone lesion. ??Mild osteoarthritic spurring at the ankle and dorsal hindfoot. ??Tiny calcaneal enthesophyte at the Achilles insertion. Procedure Note Sagar Key MD - 12/28/2019 EXAMINATION: XR ANKLE RIGHT 3 OR MORE VIEWS, XR ANKLE LEFT 3 OR MORE VIEWS ORDERING HEALTHCARE PROVIDER: JESSICA AVALOS HISTORY: Bilateral foot pain radiating into the legs for the past 2 months. TECHNIQUE: AP, oblique, and lateral views of the bilateral ankles. COMPARISON: None available FINDINGS: Right ankle: No acute fracture or dislocation. No aggressive bone lesion. Mild osteoarthritic spurring at the ankle and dorsal hindfoot. Left ankle: No acute fracture or dislocation. No aggressive bone lesion. Mild osteoarthritic spurring at the ankle and dorsal hindfoot. Tiny calcaneal enthesophyte at the Achilles insertion. IMPRESSION: 1. No acute osseous abnormality involving either foot. 2. Mild osteoarthritis of the bilateral ankles/hindfeet. Electronically signed by: Sagar Key M.D. us Jessica Avalos [facility] IMG XR PROCEDURES Final Resu lt * XR Ankle Right 3 or More Views (12/28/2019 2:41 PM CDT) Anatomical Region Laterality Modality Lower Extremities, Ankle Right Compute d Radiography 12/28/2019 3:13 PM CDT Impressions 12/28/2019 3:19 PM CDT 1. ??No acute osseous abnormality involving either foot. 2. ??Mild osteoarthritis of the bilateral ankles/hindfeet. Electronically signed by: Sagar Key M.D. Narrative 12/28/2019 3:19 PM CDT EXAMINATION: XR ANKLE RIGHT 3 OR MORE VIEWS, XR ANKLE LEFT 3 OR MORE VIEWS ORDERING HEALTHCARE PROVIDER: JESSICA AVALOS HISTORY: Bilateral foot pain radiating into the legs for the past 2 months. TECHNIQUE: AP, oblique, and lateral views of the bilateral ankles. COMPARISON: ??None available FINDINGS: Right ankle: ??No acute fracture or dislocation. ??No aggressive bone lesion. ??Mild osteoarthritic spurring at the ankle and dorsal hindfoot. Left ankle: ??No acute fracture or dislocation. ??No aggressive bone lesion. ??Mild osteoarthritic spurring at the ankle and dorsal hindfoot. ??Tiny calcaneal enthesophyte at the Achilles insertion. Procedure Note Sagar Key MD - 12/28/2019 EXAMINATION: XR ANKLE RIGHT 3 OR MORE VIEWS, XR ANKLE LEFT 3 OR MORE VIEWS ORDERING HEALTHCARE PROVIDER: JESSICA AVALOS HISTORY: Bilateral foot pain radiating into the legs for the past 2 months. TECHNIQUE: AP, oblique, and lateral views of the bilateral ankles. COMPARISON: None available FINDINGS: Right ankle: No acute fracture or dislocation. No aggressive bone lesion. Mild osteoarthritic spurring at the ankle and dorsal hindfoot. Left ankle: No acute fracture or dislocation. No aggressive bone lesion. Mild osteoarthritic spurring at the ankle and dorsal hindfoot. Tiny calcaneal enthesophyte at the Achilles insertion. IMPRESSION: 1. No acute osseous abnormality involving either foot. 2. Mild osteoarthritis of the bilateral ankles/hindfeet. Electronically signed by: Sagar Key M.D. Jessica Avalos NP IMG XR PROCEDURES Final Resu lt documented in this encounter Visit Diagnoses Diagnosis Pain in right ankle and joints of right foot Other instability, left ankle documented in this encounter Care Teams Rug Setter Velvet Relationship Specialty Start Date End Date Jessica Avalos NP [address] [place] [address] PCP - General 07/26/19 08/22/20 documented as of this encounter
--- OUTSIDE RECORDS SUMMARY | 2024-04-14 18:37 | XMS_ITS | Encounter Summary ---
Author Organization [facility] Healthcare Address [address] [place] [address] Care Team Providers Care Sr. Pricing Analyst Name Role Phone Jessica Navarro NP Primary Care Provider Reason for Visit * Reason Comments Abdominal Pain Nausea Vomiting Encounter Details Date Type Department Care Team (Late st Contact Info) Description 07/26/2019 11:33 AM CDT - 07/26/2019 2:01 PM CDT Emergency [facility] Emergency Department [address] [place] [address] Dennis Escalante MD [address] [place] [address] Gastroenteritis (Primary Dx) Discharge Disposition: Discharge to home [...] Sign Reading Time Taken Comments Blood Pressure 111/93 07/26/2019 1:57 PM CDT Pulse 66 07/26/2019 1:57 PM CDT Temperature 36.8 ??C (98.2 ??F) 07/26/2019 11:41 AM C DT Respiratory Rate 16 07/26/2019 1:57 PM CDT Oxygen Saturation 100% 07/26/2019 1:57 PM CDT Inhaled Oxygen Concentration - - Weight 90.3 kg (199 lb) 07/26/2019 11:41 AM CDT Height 160 cm (5' 3 ) 07/26/2019 11:41 AM CDT Body Mass Index 35.25 07/26/2019 11:41 AM CDT documented in this encounter Discharge Diagnoses Diagnosis Noninfective gastroenteritis and colitis, unspecified - NONINFECTIVE GASTROENTERITIS AND COLITIS, UNSPECIFIED Nicotine dependence, cigarettes, uncomplicated - NICOTINE DEPENDENCE, CIGARETTES, UNCOMPLICATED documented in this encounter Discharge Instructions * Attachments The following attachments cannot be sent through Care Everywhere. * Gastroenteritis (AfterCare(R) Instructions(ER/ED)) (Greek) documented in this encounter Medications at Time of Discharge ondansetron ODT (ZOFRAN-ODT) 4 mg disintegrating tablet Dissolve 1 tablet oral every 4 hours as needed for nausea or vomiting. 15 tablet 07/26/2019 0 documented as of this encounter Ordered Prescriptions Prescription Sig Dispense Quantity Refills Last Filled Start Date End Date ondansetron ODT (ZOFRAN-ODT) 4 mg disintegrating tablet Dissolve 1 tablet oral every 4 hours as needed for nausea or vomiting. 15 tablet 07/26/2019 0 documented in this encounter Discharge Disposition Disposition Code Departure Means Destination Comment s Discharge to home or self [facility] documented in this encounter ED Notes * Russell Gutierrez - 07/26/2019 11:39 AM CDT Patient presents to the ED via private vehicle for abdominal pain, n/v/d for 3 days. Patient rates abd pain 4/10. Patient A&OX4, and answers questions appropriately. * Dennis Escalante MD - 07/26/2019 11:34 AM CDT HPI Chief Complaint Patient presents with ??? Abdominal Pain ??? Nausea ??? Vomiting Patient is a 24-year-old female who presents emergency room complaining of a 3 day history of nausea vomiting and diarrhea with intermittent abdominal pain. No abdominal pain now. No fevers or chills. No chest pain or respiratory complaints. No urinary symptoms. No aggravating or alleviating factors. There is no other complaints of further review of symptoms negative Patient History There are no active problems to display for this patient. History reviewed. No pertinent past medical history. History reviewed. No pertinent surgical history. History reviewed. No pertinent family history. Social History Tobacco Use ??? Smoking status: Current Every Day Smoker Packs/day: 1.00 Types: Cigarettes Substance Use Topics ??? Alcohol use: Never Frequency: Never ??? Drug use: Never Social History Social History Narrative ??? Not on file Review of Systems Review of Systems All other systems reviewed and are negative. Physical Exam ED Triage Vitals [07/26/19 1141] Temp Pulse Resp BP SpO2 36.8 ??C (98.2 ??F) 73 18 153/93 100 % Temp src Heart Rate Source Patient Position BP Location FiO2 (%) Temporal -- -- -- -- Physical Exam Vitals signs and nursing note reviewed. Constitutional: General: She is not in acute distress. Appearance: She is not ill-appearing, toxic-appearing or diaphoretic. HENT: Head: Normocephalic and atraumatic. Right Ear: Tympanic membrane normal. Left Ear: Tympanic membrane normal. Mouth/Throat: Mouth: Mucous membranes are moist. Pharynx: Oropharynx is clear. Eyes: Extraocular Movements: Extraocular movements intact. Conjunctiva/sclera: Conjunctivae normal. Pupils: Pupils are equal, round, and reactive to light. Neck: Musculoskeletal: Normal range of motion and neck supple. No neck rigidity. Cardiovascular: Rate and Rhythm: Normal rate and regular rhythm. Pulses: Normal pulses. Pulmonary: Effort: Pulmonary effort is normal. Breath sounds: Normal breath sounds. No wheezing. Abdominal: General: There is no distension. Palpations: Abdomen is soft. Tenderness: There is no abdominal tenderness. Musculoskeletal: Normal range of motion. Skin: General: Skin is warm and dry. Capillary Refill: Capillary refill takes less than 2 seconds. Neurological: Mental Status: She is alert. Psychiatric: Thought Content: Thought content normal. MDM MDM ED Course as of Jul 26 1351 Time: 07/25 1326 Comment: Patient lying examination room in no acute distress, aware of all test results and the need for follow-up By: Dennis Escalante MD Final diagnoses: Gastroenteritis Dennis Escalante MD 07/26/19 1352 documented in this encounter Plan of Treatment Not on file documented as of this encounter Procedures Procedure Name Priority Date/Time Associated Diagnosis Comments US GALLBLADDER ED 07/26/2019 12:58 PM CDT URINALYSIS AND REFLEX TO MICROSCOPIC AND CULTURE STAT 07/26/2019 11:49 AM CDT HCG, URINE, QUALITATIVE STAT 07/26/2019 11:49 AM CDT EGFR STAT 07/26/2019 11:42 AM CDT DIFFERENTIAL AUTO STAT 07/26/2019 11: 42 AM CDT CBC WITH AUTO DIFFERENTIAL STAT 07/26/2019 11:42 AM CDT LIPASE STAT 07/26/2019 11:42 AM CDT COMPREHENSIVE METABOLIC PANEL STAT 07/26/2019 11:42 AM CDT documented in this encounter Results * US Gallbladder (07/26/2019 12:58 PM CDT) Anatomical Region Laterality Modality Abdomen N/A Ultrasound 07/26/2019 12:4 4 PM CDT Narrative 07/26/2019 1:14 PM CDT [facility] ?Imaging Result Name: MARIPOSA SANTOS ?Ordering Phys: DENNIS ESCALANTE Age: 24 ?Date of : 1995 ? Accession Number: [id number] Date of Service: 07/26/2019 ??Gender: F EXAM DESCRIPTION: ??US GALLBLADDER REASON FOR STUDY: ??N/V for a few days and elevated LFTsDuration: few days TECHNIQUE: ??Ultrasound of the gallbladder was performed with grayscale imaging. COMPARISON: ??None ??GALLBLADDER: There is no definite evidence of cholelithiasis. ??The gallbladder wall measures 0.2 cm in thickness. ??There is no definite evidence of pericholecystic fluid. BILIARY SYSTEM: There is no definite evidence of intrahepatic biliary ductal dilatation. ??There is mild prominence of the common bile duct measuring 0.5 cm in diameter. LIVER: There is increased echogenicity of the liver. ??There is a focal hypoechoic area in the liver along the gallbladder fossa, which likely represents focal fatty sparing. OTHER: No other significant findings. IMPRESSION: 1. ??Diffuse hepatic steatosis with focal hypoechoic area in the liver along the gallbladder fossa, which likely represents focal fatty sparing. Confirmation may be performed with MRI as clinically indicated. 2. ??No definite sonographic evidence of cholecystitis or cholelithiasis. THIS IS AN ELECTRONICALLY VERIFIED FINAL REPORT 07/26/2019 1:10 PM - Electronically signed by Charly Mendez D.O. PS: PS D: ??07/26/2019 1:10 PM T: ??07/26/2019 1:10 PM Report ID: [id number] Reading Location: ??[id number] Procedure Note Charly Mendez, - 07/26/2019 [facility] Imaging Result Name: MARIPOSA SANTOS Ordering Phys: DENNIS ESCALANTE Age: 24 Date of : 1995 Accession Number: [id number] Date of Service: 07/26/2019 Gender: F EXAM DESCRIPTION: US GALLBLADDER REASON FOR STUDY: N/V for a few days and elevated LFTsDuration: fewdays TECHNIQUE: Ultrasound of the gallbladder was performed with grayscaleimaging. COMPARISON: None GALLBLADDER: There is no definite evidence of cholelithiasis. The gallbladder wall measures 0.2 cm in thickness. There is no definiteevidence of pericholecystic fluid. BILIARY SYSTEM: There is no definite evidence of intrahepatic biliaryductal dilatation. There is mild prominence of the common bile duct measuring0.5 cm in diameter. LIVER: There is increased echogenicity of the liver. There is a focal hypoechoic area in the liver along the gallbladder fossa, which likely represents focal fatty sparing. OTHER: No other significant findings. IMPRESSION: 1. Diffuse hepatic steatosis with focal hypoechoic area in the liveralong the gallbladder fossa, which likely represents focal fatty sparing. Confirmation may be performed with MRI as clinically indicated. 2. No definite sonographic evidence of cholecystitis or cholelithiasis. THIS IS AN ELECTRONICALLY VERIFIED FINAL REPORT 07/26/2019 1:10 PM - Electronically signed by Charly Mendez D.O. PS: PS Report ID: [id number] Reading Location: [place] [address] Dennis Escalante MD IMG US PROCEDURES Final Resul t * hCG, urine, qualitative (07/26/2019 11:49 AM CDT) HCG, ur Negative Negative [facility] ([place]) Urine 07/26/2019 11:4 9 AM CDT 07/26/2019 11:53 AM CDT Dennis Escalante MD LAB URINE ORDERABLES Final Re sult [facility] ([place]) 1 [facility] [place] [address] * Urinalysis reflex to microscopic and culture Urine (07/26/2019 11:49 AM CDT) Color, ur Yellow Yellow [facility] ([place]) Clarity, ur Clear Clear [facility] ([place]) Specific gravity, ur 1.010 1.010 - 1.025 [facility] ([place]) pH, urine 7.0 [facility] ([place]) Protein, ur ql Negative Negative [facility] ([place]) Glucose, ur ql Negative Negative [facility] ([place]) Ketones, ur Negative Negative [facility] ([place]) Bilirubin, ur Negative Negative [facility] ([place]) Blood, ur Negative Negative [facility] ([place]) Urobilinogen, ur <2.0 <2.0 mg/dL [facility] ([place]) Nitrite, ur Negative Negative [facility] ([place]) Leukocyte esterase, ur Negative Negative [facility] ([place]) UA reflex comment Reflex conditions for microscopic UA and culture not met. [facility] ([place]) Urine 07/26/2019 11:4 9 AM CDT 07/26/2019 11:53 AM CDT Narrative [facility] ([place]) - 07/26/2019 11:56 AM CDT ?? Urine pH is affected by diet, medications, systemic acid-base disturbances, and renal tubular function. ??pH may affect urinary stone formation. ??For example, urine pH below 6.0 may help reduce the tendency for calcium phosphate stones and pH greater than 6.0 may reduce the tendency for uric acid stone formation. Source: [facility] [employer]. Last revised 05-07-2017 Dennis Escalante MD LAB MICROBIOLOGY - GENERAL OR DERABLES Final Result [facility] ([place]) 1 [facility] [place] [address] * eGFR (07/26/2019 11:42 AM CDT) eGFR 120 mL/min/1.7 3 m2 [facility] ([place]) Comment: Interpretive Data Reference Interval Normal ?>/= 90 mL/min/1.73m2 Mildly decreased* ? 60 - 89 mL/min/1.73m2 Mildly to moderately decreased ?45 - 59 mL/min/1.73m2 Moderately to severely decreased ??30 - 44 mL/min/1.73m2 Severely decreased ?15 - 29 mL/min/1.73m2 Kidney Failure ?< 15 ??mL/min/1.73m2 *Relative to young adult level If -[place] multiply value by 1.16. Estimated glomerular filtration rate is determined by [...] 70. Current interpretive data was last reviewed 2015. Blood specimen (specimen) 07/26/2019 11:42 AM CDT 07/26/2019 11:45 AM CDT Dennis Escalante MD LAB BLOOD ORDERABLES Final Re sult [facility] ([place]) 1 [facility] Department of Laboratories [place], [place] [id number] * (ABNORMAL) Differential, auto (07/26/2019 11:42 AM CDT) Neutrophil abs 6.3 1.7 - 6.5 K/cumm [facility] ([place]) Imm gran abs 0.0 0.0 - 0.1 K/cumm [facility] ([place]) Lymphocyte abs 3.5(H) 0.8 - 3.3 K/cumm [facility] ([place]) Monocyte abs 0.6 0.2 - 0.8 K/cumm [facility] ([place]) Eosinophil abs 0.5 0.0 - 0.5 K/cumm [facility] ([place]) Basophil abs 0.1 0.0 - 0.1 K/cumm [facility] ([place]) Neutrophil pct 57.0 % [facility] ([place]) Comment: Interpretive Data Percent cell count reference ranges are not reported, since discordance with absolute values may lead to misinterpretation of CBC data. Current Interpretive Data was last revised on 2017. Imm gran pct 0.5 % [facility] ([place]) Comment: Interpretive Data Percent cell count reference ranges are not reported, since discordance with absolute values may lead to misinterpretation of CBC data. Current Interpretive Data was last revised on 2017. Lymphocyte pct 31.7 % [facility] ([place]) Comment: Interpretive Data Percent cell count reference ranges are not reported, since discordance with absolute values may lead to misinterpretation of CBC data. Current Interpretive Data was last revised on 2017. Monocyte pct 5.6 % [facility] ([place]) Comment: Interpretive Data Percent cell count reference ranges are not reported, since discordance with absolute values may lead to misinterpretation of CBC data. Current Interpretive Data was last revised on 2017. Eosinophil pct 4.4 % [facility] ([place]) Comment: Interpretive [...] last revised on 2017. Blood specimen (specimen) 07/26/2019 11:42 AM CDT 07/26/2019 11:45 AM CDT us Dennis Escalante MD LAB BLOOD ORDERABLES Final Re sult [facility] ([place]) 1 [facility] [place] [address] * (ABNORMAL) Lipase (07/26/2019 11:42 AM CDT) Lipase 103(H) 10 - 99 Units/L [facility] ([place]) Blood specimen (specimen) 07/26/2019 11:42 AM CDT 07/26/2019 11:45 AM CDT us Dennis Escalante MD LAB BLOOD ORDERABLES Final Re sult [facility] ([place]) 1 [facility] [place] [address] * (ABNORMAL) Comprehensive metabolic panel (07/26/2019 11:42 AM CDT) Sodium 139 135 - 145 mmol/L [facility] ([place]) Potassium, pl 3.6 3.3 - 4.9 mmol/L [facility] ([place]) Chloride 99 97 - 110 mmol/L [facility] ([place]) CO2 28 22 - 32 mmol/L [facility] ([place]) Anion gap 12 2 - 15 mmol/L [facility] ([place]) BUN 11 8 - 25 mg/dL [facility] ([place]) Creatinine 0.70 0.60 - 1.10 mg/dL [facility] ([place]) Glucose 103 70 - 199 mg/dL [facility] ([place]) [...] interpretive data was last revised 2017. Calcium 10.2 8.5 - 10.3 mg/dL [facility] ([place]) Bilirubin, total 0.8 0.1 - 1.2 mg/dL [facility] ([place]) Protein, pl 7.7 6.5 - 8.5 g/dL [facility] ([place]) Albumin 5.1(H) 3.5 - 5.0 g/dL [facility] ([place]) Alk phos 64 40 - 130 Units/L [facility] ([place]) ALT 97(H) 7 - 45 Units/L [facility] ([place]) AST 85(H) 10 - 45 Units/L [facility] ([place]) Blood specimen (specimen) 07/26/2019 11:42 AM CDT 07/26/2019 11:45 AM CDT Dennis Escalante MD LAB BLOOD ORDERABLES Final Re sult Performing Organization Address [facility] Co de Phone Number [facility] ([place]) 1 [facility] [place] [address] * (ABNORMAL) CBC with auto differential (07/26/2019 11:42 AM CDT) WBC 11.1(H) 3.8 - 9.9 K/cumm [facility] ([place]) Hgb 15.1 11.9 - 15.5 g/dL [facility] ([place]) Hct 43.6 35.6 - 45.5 % [facility] ([place]) Plt 227 150 - 400 K/cumm [facility] ([place]) MPV 11.7 9.1 - 12.3 fL [facility] ([place]) RBC 4.77 3.90 - 5.20 M/cumm [facility] ([place]) MCV 91.4 81.3 - 96.4 fL [facility] ([place]) MCH 31.7 27.1 - 33.3 pg [facility] ([place]) MCHC 34.6 32.3 - 35.7 g/dL [facility] ([place]) RDW CV 11.3 11.1 - 14.9 % [facility] ([place]) RDW SD 38.2 35.7 - 48.1 fL [facility] ([place]) NRBC abs 0.00 0.00 - 0.01 K/cumm [facility] ([place]) Blood specimen (specimen) 07/26/2019 11:42 AM CDT 07/26/2019 11:45 AM CDT Dennis Escalante MD LAB BLOOD ORDERABLES Final Re sult Performing Organization Address [facility]/ZIP Co de Phone Number [facility] ([place]) 1 [facility] [place] [place] [address] documented in this encounter Visit Diagnoses Diagnosis Gastroenteritis- Primary Other and unspecified noninfectious gastroenteritis and colitis documented in this encounter Care Teams Sr. Pricing Analyst Relationship Specialty Start Date End Date Melanie, Jessica Pinto NP [address] [place] [address] PCP - General 07/26/19 08/22/20 documented as of this encounter
--- OUTSIDE RECORDS SUMMARY | 2024-04-14 18:37 | XMS_ITS | Encounter Summary ---
Author Organization [facility] Healthcare Address [address] [place] [address] Care Team Providers Care Employee Benefits Insurance Agent Name Role Phone Jessica Navarro NP Primary Care Provider Reason for Visit * Reason Comments PT Treatment Encounter Details Date Type Department Care Team (Late st Contact Info) Description 02/09/2020 1:45 PM CDT Therapy [facility] Physical Therapy [address] [place] [id number] Christi Chanel, [employer]ILLER ASSEMBLER Other instability, right ankle (Primary Dx) Social [...] this encounter Progress Notes * Christi Chanel, [employer] AND F[employer]ER ASSEMBLER - 02/09/2020 1:45 PM CDT PT Daily Treatment Note Lilli Danielle 1995 Subjective: Pt states her ankles are feeling very bad. Pt states HEP is painful but she does do them. Pt states she isn't sure therapy is helping Pain:10/04 B ankles Objective: See treatment provided. Treatment Provided: Seated BAPS board each foot/ankle: * Fwd/bkwd x15, side to side x 15 and circles x15 each. Bilat ankle PF/DF x 20 ?? Yellow theraband ankle DF/PF, EV/INV x 15 each on each side. ?? US (pulsed) to B ankle/foot along medial aspect X 8 min each Rock Tape to medial B ankles/feet for pain (posterior tibialis tendon) ?? Standing in parallel bars - rocker board, fwd/bkwd and L/R X 15 each* - tandem stance X 30 sec each foot forward* - blue foam rhomberg stance X 30 sec eyes open, 30 sec eyes closed* Standing heel and toe raises X 10 each ?HEP: ??Exercises performed on B ankles/feet - Seated calf stretch with sheet, Ankle AROM DF/PF and INV/EV, Ankle circles, and Ankle alphabet Assessment: Goals are ongoing Pt tolerated treatment well Plan: Continue to see pt per POC Start Time: 1345 End Time:1430 Christi Chanel PTA documented in this encounter Plan of Treatment Not on file documented as of this encounter Visit Diagnoses Diagnosis Other instability, right ankle- Primary documented in this encounter Care Teams Employee Benefits Insurance Agent Relationship Specialty Start Date End Date Jessica Navarro NP [address] [place] [address] PCP - General 07/26/19 08/22/20 documented as of this encounter
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
--- OUTSIDE RECORDS SUMMARY | 2024-04-14 18:49 | XMS_ITS | Clinical Summary ---
Author Organization [facility] [place] Address [address] [place] [address] Care Team Providers Care Android Developer Name Role Phone Unavailable Primary Care Provider Unavailabl e Allergies No known active allergies Medications Medication Sig Dispensed Refills Start Date End Date Status traZODone (DESYREL) 50 mg tablet 1 - 2 tablets at bedtime as needed Orally Once a day for 30 days 10/14/2023 Active tiZANidine (ZANAFLEX) 4 mg Tablet TAKE 1 TABLET BY MOUTH EVERY 6-8 HOURS NEEDED FOR MUSCLE SPASMS 08/21/2023 Active lamoTRIgine (LaMICtal) 200 mg tablet 1 tablet Orally Once a day for 30 days 06/03/2023 Active metFORMIN (GLUCOPHAGE) 500 mg tablet Take 2 Tablets by mouth 2 times daily. 10/24/2022 Active metFORMIN (GLUCOPHAGE) 1,000 mg tablet 2 times daily. Active QUEtiapine (SEROquel) 400 mg tablet 1 tablet as needed for sleep Orally Once a day for 30 days 07/21/2023 Active ibuprofen (MOTRIN) 800 mg tablet 1 tablet with food or milk as needed Orally every 8 hrs 09/09/2021 Active gabapentin (NEURONTIN) 300 mg capsule Take 600 mg by mouth. 05/14/2021 09/29/2024 Active DULoxetine (CYMBALTA) 30 mg Capsule, Delayed Release(E.C.) 1 Capsule. Act agatha escitalopram oxalate (LEXAPRO) 10 mg tablet Take 10 mg by mouth daily. Active Social History Tobacco Use Types Packs/Day Years Used Date Smoking Tobacco: Never Assessed Sex and Gender Information Value Date Recorded Sex Assigned at Not on file Gender Identity Not on file Sexual Orientation Not on file Last Filed Vital Signs Vital Sign Reading Time Taken Comments Blood Pressure 143/90 11/04/2023 9:39 AM CDT Pulse 114 11/04/2023 9:39 AM CDT Temperature 36.7 ??C (98 ??F) 11/04/2023 9:39 AM CDT Respiratory Rate 16 11/04/2023 9:39 AM CDT Oxygen Saturation 98% 11/04/2023 9:39 AM CDT Inhaled Oxygen Concentration - - Weight - - Height 160 cm (5' 3 ) 11/04/2023 9:39 AM CDT Body Mass Index - - Plan of Treatment Health Maintenance Due Date Last Done Comments PNEUMOCOCCAL VACCINE 0-64 YEARS (1 of 2 - PCV) 1999 DIABETES ANNUAL RETINAL EXAM 2011 DIABETES MICROALBUMIN ANNUAL SCREEN 2011 LDL CHOLESTEROL ANNUAL 2011 HEPATITIS B VACCINES (1 of 3 - 19+ 3-dose series) 2012 CERVICAL CANCER SCREENING 2023 INFLUENZA VACCINE (#1) 2023 DIABETES ANNUAL FOOT EXAM 12/19/2023 12/18/2022 DIABETES HBA1C Q 6 MONTHS 01/14/20242023, 07/02/2022 DTAP/TDAP/TD VACCINES (2 - T d or Tdap) 01/17/2028 01/16/2018 HPV VACCINES Aged Out No longer eligi ble based on patient's age to complete this topic
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
--- OUTSIDE RECORDS SUMMARY | 2024-04-14 18:52 | XMS_ITS | Clinical Summary ---
Author Organization [facility] Address [address] [place] [address] Phone Care Team Providers Care Boiler House Inspector Name Role Phone Jessica Navarro APRN, CNP Primary Care Provider [phone] Jessica Navarro APRN, CNP Unavailable [phone] Allergies Active Allergy Reactions Criticality Noted Date [...] mouth. 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
--- OUTSIDE RECORDS SUMMARY | 2024-04-14 18:52 | XMS_ITS | Encounter Summary ---
Author Organization [facility] Address [address] [place] [address] Phone Care Team Providers Care Incident Coordinator Name Role Phone Jessica Navarro APRN, CNP Primary Care Provider [phone] Jessica Navarro APRN, CNP Unavailable [phone] Reason for Referral * Radiology Services (Routine) - Closed Specialty Diagnoses / Procedures Referred By Contac t Referred To Contact Radiology Diagnoses Abnormal uterine and vaginal bleeding, unspecified Procedures US PELVIS COMPLETE WITH TRANSVAGINAL Grace Conner MD [address] [place] [address] [address] [place] [address] Phone: tel: fax: Referral ID Status Reason Start Date Expiration Date Visits Re quested Visits Authorized [id number] Closed 01/22/2023 1 1 Reason for Visit * Radiology Services (Routine) - Closed Specialty Diagnoses / Procedures Referred By Contac t Referred To Contact Radiology Diagnoses Abnormal uterine and vaginal bleeding, unspecified Procedures US PELVIS COMPLETE WITH TRANSVAGINAL Grace Conner MD [address] [place] [address] [address] EL[address] [place] [address] Phone: tel: fax: Referral ID Status Reason Start Date Expiration Date Visits Re quested Visits Authorized [id number] Closed 01/22/2023 1 1 Encounter Details Date Type Department Care Team (Latest Contact Info) Description 01/24/2023 10:08 AM CDT - 01/24/2023 11:59 PM CDT Hospital Encounter [facility] Ultrasound [address] [place] [address] Florencio Reynolds MD [address] [facility] [place] [address] Discharge Disposition: Discharged to home or Selfcare Social History Tobacco Use Types Packs/Day Years Used Date Smoking Tobacco: Former Cigarettes Q uit: 09/13/2020 Smokeless Tobacco: Never Alcohol Use Standard Drinks/Week Comments No 0 (1 standard drink = 0.6 oz pur e alcohol) Comments No Sex and Gender Information Value Date Recorded Sex Assigned at Not on file 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 12/30/2017 ergocalciferol (VITAMIN D) 91242 UNIT Capsule ergocalciferol (vitamin D2) 50,000 unit [...] PM T: ??01/24/2023 4:44 PM Report ID: [id number] Reading Location: ??[id number] Procedure Note Kael Tobias Jr., MD - [...] by Kael Tobias M.D. CH: Report ID: [id number] Reading Location: [id number] IMPRESSION: No evidence of an acute abnormality. Multiple small peripheral follicles in both ovaries which can be seen with polycystic ovarian syndrome. Grace Conner MD IMG US ORDERABLES Final Result documented in this encounter Visit Diagnoses Diagnosis Abnormal uterine and vaginal bleeding, unspecified documented in this encounter Care Teams Incident Coordinator Relationship Specialty Start Date End Date Jessica Navarro APRN, CNP [address] [place] [address] PCP - General Family Medicine 01/16/18 Jessica Navarro APRN, CNP [address] [place] [address] Family Medicine 01/16/18 documented as of this encounter
--- OUTSIDE RECORDS SUMMARY | 2024-04-14 18:52 | XMS_ITS | Encounter Summary ---
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
--- OUTSIDE RECORDS SUMMARY | 2024-04-14 18:52 | XMS_ITS | Encounter Summary ---
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
--- OUTSIDE RECORDS SUMMARY | 2024-04-14 18:52 | XMS_ITS | Encounter Summary ---
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
--- OUTSIDE RECORDS SUMMARY | 2024-04-14 18:52 | XMS_ITS | Encounter Summary ---
Author Organization [facility] Address [address] [place] [address] Phone Care Team Providers Care Bridge Leverman Name Role Phone Jessica Navarro APRN, CNP Primary Care Provider [phone] Jessica Navarro APRN, CNP Unavailable [phone] Reason for Visit * Reason Comments Tingling Numbness Pain * Other (Routine) - Closed Specialty Diagnoses / Procedures Referred By Jonas reeves Referred To Contact Neurology Diagnoses Anesthesia of skin Procedures EMG Jessica Navarro APRN, CNP [address] [place] [address] Phone: tel: fax: Referral ID Status Reason Start Date Expiration Date Visits Re quested Visits Authorized [id number] Closed 05/30/2022 1 1 Encounter Details Date Type Department Care Team (Late st Contact Info) Description 06/18/2022 10:00 AM LAW ENFORCEMENT INSTRUCTOR [facility] [address] [place] [address] Jessica Navarro APRN, CNP [address] [place] [address] Anesthesia of skin Discharge Disposition: [...] on file 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 No / Unsure 06/18/2022 9:41 AM LAW ENFORCEMENT INSTRUCTOR documented as of this encounter Progress Notes [...] the flexor retinaculum. Clinical correlation is recommended. ENFORCEMENT INSTRUCTOR documented in this encounter Procedure Notes * [...] the flexor retinaculum. Clinical correlation is recommended. ENFORCEMENT INSTRUCTOR documented in this encounter Plan of Treatment Not on file documented as of this encounter Procedures Procedure Name Priority Date/Time Associated Diagnosis Comments EMG Routine 06/18/2022 12:00 AM LAW ENFORCEMENT INSTRUCTOR Anesthesia of skin documented in this encounter Results * EMG (06/18/2022 12:00 AM LAW ENFORCEMENT INSTRUCTOR) 06/18/2022 Jessica Navarro APRN, CNP NEUROLOGY ORDERABLES V2 F inal Result SCAN documented in this encounter Visit Diagnoses Diagnosis Anesthesia of skin Disturbance of skin sensation documented in this encounter Care Teams Bridge Leverman Relationship Specialty Start Date End Date Jessica Navarro APRN, CNP [address] [place] [address] PCP - General Family Medicine 01/16/18 Jessica Navarro APRN, CNP [address] [place], [place] [id number] Family Medicine 01/16/18 documented as of this encounter
--- OUTSIDE RECORDS SUMMARY | 2024-04-14 18:52 | XMS_ITS | Encounter Summary ---
Author Organization [facility] Address [address] [place] [address] Phone Care Team Providers Care Malt House Operator Name Role Phone Jessica Navarro APRN, CNP Primary Care Provider [phone] Jessica Navarro APRN, CNP Unavailable [phone] Reason for Referral * Radiology Services (Routine) - Closed Specialty Diagnoses / Procedures Referred By Jonas reeves Referred To Contact Radiology Diagnoses Abnormal uterine bleeding Procedures US PELVIS COMPLETE WITH TRANSVAGINAL Florencio Reynolds MD [address] [facility] [address] [place] [address] Phone: tel: fax: Referral ID Status Reason Start Date Expiration Date Visits Re quested Visits Authorized [id number] Closed 12/31/2022 1 1 Encounter Details Date Type Department Care Team (Late st Contact Info) Description 12/31/2022 Transcribe Orders [facility] Central Scheduling [address] [place] [address] Florencio Reynolds MD [address] [facility] [address] [place] [address] Abnormal uterine bleeding (Primary Dx) Social History Tobacco Use Types Packs/Day Years Used Date Smoking Tobacco: Former Cigarettes Q uit: 09/13/2020 Smokeless Tobacco: Never Alcohol Use Standard Drinks/Week Comments No 0 (1 standard drink = 0.6 oz pur e alcohol) Comments No Sex and Gender Information Value Date Recorded Sex Assigned at Not on file 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
--- OUTSIDE RECORDS SUMMARY | 2024-04-14 18:52 | XMS_ITS | Encounter Summary ---
Author Organization [facility] Address [address] [place] [address] Phone Care Team Providers Care Desktop Publishing Operator Name Role Phone Jessica Navarro APRN, CNP Primary Care Provider [phone] Jessica Navarro APRN, CNP Unavailable [phone] Reason for Referral * Radiology Services (Routine) - Closed Specialty Diagnoses / Procedures Referred By Contac t Referred To Contact Radiology Diagnoses History of chlamydia infection Procedures XR HYSTEROSALPINGOGRAPHY Karen Hale MD [address] [place] [address] Phone: tel: fax: Referral ID Status Reason Start Date Expiration Date Visits Re quested Visits Authorized [id number] Closed 06/16/2022 1 1 Reason for Visit * Radiology Services (Routine) - Closed Specialty Diagnoses / Procedures Referred By Contac t Referred To Contact Radiology Diagnoses History of chlamydia infection Procedures XR HYSTEROSALPINGOGRAPHY Karen Hale MD [address] [place] [address] Phone: tel: fax: Referral ID Status Reason Start Date Expiration Date Visits Re quested Visits Authorized [id number] Closed 06/16/2022 1 1 Encounter Details Date Type Department Care Team (Latest Contact Info) Description 07/17/2022 10:26 AM CDT - 07/17/2022 11:59 PM CDT Hospital Encounter [facility] [address] [place] [address] Karen Hale MD [address] [place] [address] Discharge Disposition: Discharged to home or Selfcare Social History Tobacco Use Types Packs/Day Years Used Date Smoking Tobacco: Former Cigarettes Q uit: 09/13/2020 Smokeless Tobacco: Never Alcohol Use Standard Drinks/Week Comments No 0 (1 standard drink = 0.6 oz pur e alcohol) Comments No Sex and Gender Information Value Date Recorded Sex Assigned at Not on file 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 12/30/2017 ergocalciferol (VITAMIN D) 85148 UNIT Capsule ergocalciferol (vitamin D2) 50,000 unit [...] PM T: ??07/17/2022 2:52 PM Report ID: [id number] Reading Location: ??[id number] Procedure Note James Hathaway MD - 07/17/2022 [...] signed by James MARTINEZ: JUAN Report ID: [id number] Reading Location: [id number] IMPRESSION: Normal hysterosalpingogram. Bilateral patent fallopian tubes. Karen Hale MD IMG FLUOROSCOPY ORDERABLES Fi nal Result * Ur Test Qual (07/17/2022 11:12 AM CDT) PREG TEST,MONOCLONA L Negative 07/17/2022 11:22 AM CDT [facility] Urine Non-Phlebotomy Collection / Unknown 07/17/2022 11:12 AM CDT 07/17/2022 11:14 AM CDT us Karen Hael MD URINE ORDERABLES Final Result [facility] [address] [place] [address] documented in this encounter Visit Diagnoses Diagnosis [...] mL documented in this encounter Care Teams Desktop Publishing Operator Relationship Specialty Start Date End Date Jessica Navarro APRN, CHIEF TECHNOLOGIST [address] [place] [address] PCP - General Family Medicine 01/16/18 Jessica Navarro APRN, CHIEF TECHNOLOGIST [address] [place] [address] Family Medicine 01/16/18 documented as of this encounter
--- OUTSIDE RECORDS SUMMARY | 2024-04-14 18:52 | XMS_ITS | Encounter Summary ---
Author Organization [facility] Address [address] [place] [address] Phone Care Team Providers Care Octave Board Racker Name Role Phone Jessica Navarro APRN, CNP Primary Care Provider [phone] Jessica Navarro APRN, CNP Unavailable [phone] Reason for Referral * Radiology Services (Routine) - Closed Specialty Diagnoses / Procedures Referred By Jonas reeves Referred To Contact Radiology Diagnoses Abnormal uterine and vaginal bleeding, unspecified Procedures US PELVIS COMPLETE WITH TRANSVAGINAL Grace Conner MD [address] [place] [address] [address] [place] [address] Phone: tel: fax: Referral ID Status Reason Start Date Expiration Date Visits Re quested Visits Authorized [id number] Closed 01/22/2023 1 1 Encounter Details Date Type Department Care Team (Late st Contact Info) Description 01/22/2023 Transcribe Orders [facility] Central Scheduling [address] [place] [address] Grace Conner MD [address] [place] [address] [address] [place] [address] Abnormal uterine and vaginal bleeding, unspecified [...] on file 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 CH: Report ID: [id number] Reading Location: [id number] IMPRESSION: No evidence of an acute abnormality. Multiple small peripheral follicles in both ovaries which can be seen with polycystic ovarian syndrome. us Grace Conner MD IMG US ORDERABLES Final Result documented in this encounter Visit Diagnoses Diagnosis Abnormal uterine and vaginal bleeding, unspecified- Primary Abnormal uterine and vaginal bleeding, unspecified documented in this encounter Care Teams Octave Board Racker Relationship Specialty Start Date End Date Jessica Navarro APRN, CNP [address] [place] [address] PCP - General Family Medicine 01/16/18 Jessica Navarro APRN, CNP [address] [place] [address] Family Medicine 01/16/18 documented as of this encounter
--- OUTSIDE RECORDS SUMMARY | 2024-04-14 18:52 | XMS_ITS | Encounter Summary ---
Author Organization [facility] Address [address] 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 * Hyperglycemia (Uruguayan) documented in this encounter Medications at Time of Discharge albuterol (PROVENTIL HFA, VENTOLIN HFA) 108 (90 BASE) MCG/ACT Aerosol Solution take 2 Puffs by inhalation every 6 hours as needed for Wheezing. 1 Inhaler 0 05/19/2016 cyclobenzaprine (FLEXERIL) 10 MG Tablet Take 10 mg by mouth. 12/30/2017 ergocalciferol (VITAMIN D) 75789 UNIT Capsule ergocalciferol (vitamin D2) 50,000 unit [...] Patient discharged per ambulatory mode as responsible alliance party. SL D/C'ed with Arpit cath intact. * [...] about 4 days ago. She was in [place] for a month and ran out there. [...] mg by mouth. ??? ergocalciferol (VITAMIN D) 16723 UNIT Capsule ergocalciferol (vitamin D2) 50,000 unit [...] Abnormality Status --------- ------ CBC with Auto Differential[[id number]] Abnormal Final result Please view results for [...] patient to follow-up with: Jessica Navarro, ESTELITA, REFLESHER [address] [place] [address] Call on 11/24/2022 Dispostion: Discharge * [...] of4 resultswithin the time period is included. [facility] Gomez GLUCOSE,BEDSID E POCT 173(H) 70 - 99 mg/dL 11/22/2022 3:48 AM CDT [facility] Comment: RN Notified NAZIA ORR Blood 11/22/2022 3:40 AM CDT 11/22/2022 3:48 AM CDT us None Provider POINT OF CARE TESTING Final Resu lt Performing Organization Address City/[facility]/ZIP Co de Phone Number [facility] [address] [place] [address] * Ur Test Qual (11/22/2022 1:40 AM CDT) PREG TEST,MONOCLONA L Negative 11/22/2022 1:45 AM CDT [facility] Urine Non-Phlebotomy Collection / Unknown 11/22/2022 1:40 AM CDT 11/22/2022 1:40 AM CDT us Nelson Pearson MD URINE ORDERABLES Final Result Performing Organization Address [facility] de Phone Number [facility] [address] [place] [address] * (ABNORMAL) Urinalysis w/ Reflex (11/21/2022 11:57 PM CDT) [facility] SPECIFIC GRAVITY 1.010 1.003 - 1.030 11/22/2022 12:26 AM CDT [facility] URINE PH 6.0 5.0 - 9.0 11/22/2022 12:26 AM CDT [facility] WBC ESTERASE Negative Negative 11/22/2022 12:26 AM CDT [facility] NITRITE Negative Negative 11/22/2022 12:26 AM CDT [facility] PROTEIN, RANDOM URINE 30 mg/dL(A) Negative 11/22/2022 12:26 AM CDT [facility] URINE GLUCOSE, QUAL 1000 mg/dL(A) Negative 11/22/2022 12:26 AM CDT [facility] URINE KETONES Negative Negative 11/22/2022 12:26 AM CDT [facility] UROBILINOGEN Normal Normal mg/dL 11/22/2022 12:26 AM CDT [facility] URINE BLOOD 250 /uL(A) Negative nakita/ul 11/22/2022 12:26 AM CDT [facility] URINALYSIS COLOR Yellow 11/23/19 12:26 AM CDT [facility] URINALYSIS CLARITY Clear 11/22/2022 12:26 AM CDT [facility] WBC (Urine) 0-5 Negative, 0-5 /hpf 11/22/2022 12:26 AM CDT [facility] URINE RBC'S 11-20(A) Negative, 0-2 /hpf 11/22/2022 12:26 AM CDT [facility] EPITHELIAL CELLS Small amount /lpf 2022 12:26 AM CDT [facility] BACTERIA, URINE Moderate(A) Negative /hpf 11/22/2022 12:26 AM CDT [facility] Urine URINE SPECIMEN / Unknown Non-Phlebotomy Collection / Unknown 11/21/2022 11:57 PM CDT 11/22/2022 12:10 AM CDT Nelson Pearson MD URINE ORDERABLES Final Result [facility] [address] [place] [address] * (ABNORMAL) CBC with Auto Differential (11/21/2022 11:43 PM CDT) WBC 9.84 4.00 - 12.00 10(3)/mcL 11/22/2022 12:13 AM CDT [facility] RBC 4.55 3.80 - 5.30 10(6)/[facility] 11/22/2022 12:13 AM CDT [facility] HEMOGLOBIN (HGB) 14.1 12.0 - 15.8 g/dL 11/22/2022 12:13 AM CDT [facility] HEMATOCRIT (HCT) 40.5 36.0 - 47.0 % 11/22/2022 12:13 AM CDT [facility] MCV 89.0 82.0 - 96.0 fL 11/22/2022 12:13 AM CDT [facility] MCH 31.0 26.0 - 34.0 pg 11/22/2022 12:13 AM CDT [facility] MCHC 34.8 31.0 - 36.0 g/dL 11/22/2022 12:13 AM CDT [facility] PLATELET COUNT 256 140 - 440 10(3)/mcL 11/22/2022 12:13 AM CDT [facility] RDW 11.4(L) 11.8 - 15.5 % 11/22/2022 12:13 AM CDT [facility] MPV 12.5(H) 9.7 - 12.4 fL 11/22/2022 12:13 AM CDT [facility] NEUTROPHILS 47.2 47.0 - 73.0 % 11/22/2022 12:13 AM CDT [facility] LYMPHOCYTES 43.0(H) 18.0 - 42.0 % 11/22/2022 12:13 AM CDT [facility] MONOCYTES 6.5 4.0 - 12.0 % 11/22/2022 12:13 AM CDT [facility] EOSINOPHILS 2.8 0.0 - 5.0 % 11/22/2022 12:13 AM CDT [facility] BASOPHILS 0.5 0.0 - 1.0 % 11/22/2022 12:13 AM CDT [facility] ABSOLUTE NEUTROPHILS 4.64 1.60 - 7.70 10(3)/mcL 11/22/2022 12:13 AM CDT [facility] ABSOLUTE LYMPHOCYTES 4.23(H) 1.30 - 3.20 10(3)/mcL 11/22/2022 12:13 AM CDT [facility] ABSOLUTE MONOCYTES 0.64 0.20 - 1.00 10(3)/mcL 11/22/2022 12:13 AM CDT [facility] ABSOLUTE EOSINOPHIL 0.28 0.00 - 0.40 10(3)/mcL 11/22/2022 12:13 AM CDT [facility] ABSOLUTE BASOPHILS 0.05 0.00 - 0.10 10(3)/mcL 11/22/2022 12:13 AM CDT [facility] NRBC PER 100 WBC 0 11/23/19 12:13 AM CDT [facility] Blood Venipuncture / Unknown 11/21/2022 11:43 PM CDT 11/22/2022 12:10 AM CDT us Nelson Pearson MD HEMATOLOGY ORDERABLES Final Res ult [facility] [address] [place] [address] * (ABNORMAL) CMP (11/21/2022 11:43 PM CDT) SODIUM 135(L) 136 - 144 mmol/L 11/22/2022 12:44 AM CDT [facility] POTASSIUM 3.5 3.5 - 5.1 mmol/L 11/22/2022 12:44 AM CDT [facility] CHLORIDE 96(L) 100 - 110 mmol/L 11/22/2022 12:44 AM CDT [facility] CO2, VENOUS 25 22 - 32 mmol/L 11/22/2022 12:44 AM CDT [facility] ANION GAP 17.5 8.0 - 20.0 mmol/L 11/22/2022 12:44 AM CDT [facility] GLUCOSE 431(HH) 70 - 99 mg/dL 11/22/2022 12:44 AM CDT [facility] BUN 15 6 - 20 mg/dL 11/22/2022 12:44 AM CDT [facility] CREATININE, BLOOD 1.05 0.60 - 1.10 mg/dL 11/22/2022 12:[address] [facility] BUN/CREATININE RATIO 14 12 - 20 ratio 11/22/2022 12:[address] [facility] TOTAL PROTEIN 7.7 6.0 - 8.3 g/dL 11/22/2022 12:[address] [facility] ALBUMIN 4.7 3.5 - 5.2 g/dL 11/22/2022 12:[address] [facility] Comment: The colormetric methods used for the determination of Albumin may lead to falsely elevated test results in patients suffering from renal failure or insufficiency due to interference with other proteins. A/G RATIO 1.6 1.0 - 2.0 11/22/2022 12:[address] [facility] CALCIUM 9.7 8.7 - 10.5 mg/dL 11/22/2022 12:[address] [facility] T BILI 0.7 0.2 - 1.2 mg/dL 11/22/2022 12:[address] [facility] SGOT (AST) 108(H) <=32 U/L 11/22/2022 12:[address] [facility] SGPT (ALT) 169(H) <=41 U/L 11/22/2022 12:[address] [facility] ALKALINE PHOSPHATASE 87 35 - 105 U/L 11/22/2022 12:[address] [facility] GFR, ESTIMATED >60 >=60 11/22/2022 12:[address] [facility] Comment: Creatinine Clearance is the preferred criteria for selecting drug dose adjustments in renally impaired patients. ??The GFR is provided as additional pertinent clinical information. GFR is reported in mL/min/1.73 sq m. Calculation based on the Chronic Kidney Disease Epidemiology Collaboration (CKD- EPI) equation refit without adjustment for race. GFR, EST. >60 >=60 023 12:[address] [facility] GFR, EST. NONAFRICAN >60 >=60 11/22/2022 12:[address] [facility] Blood Venipuncture / Unknown 11/21/2022 11:43 PM CDT 11/22/2022 12:10 AM CDT Nelson Pearson MD CHEMISTRY ORDERABLES Final Resu lt [facility] [address] [place] [address] * Critical Care (11/21/2022 11:37 PM CDT) [...] condition and review of old charts Result [facility] Nelson Pearson MD PROCEDURE/MINOR SURGICAL ORDERA BLES [...] 70 documented in this encounter Care Teams Shelver Relationship Specialty Start Date End Date Jessica Navarro APRN, CNP [address] [place] [address] PCP - General Family Medicine 01/16/18 Jessica Navarro APRN, TALIA [address] [place] [address] Family Medicine 01/16/18 documented as of this encounter
--- OUTSIDE RECORDS SUMMARY | 2024-04-14 18:52 | XMS_ITS | Encounter Summary ---
Author Organization [employer] Care Team Providers Care Shellfish Shucker Name Role Phone Jessica Navarro APRN, CNP Primary Care Provider [phone] Jessica Navarro APRN, CNP Unavailable [phone] Encounter Details Date Type Department Care Team [...] on file Legal Sex Female 11:35 AM INTEGRITY SPECIALIST Gender Identity Not on file Sexual Orientation Not on file COVID-19 Exposure Response Date Recorded In the last 10 days, have yo u been in contact with someone who was confirmed or suspected to have Coronavirus/COVID-19? No / Unsure 06/18/2022 9:41 AM INTEGRITY SPECIALIST documented as of this encounter Plan of Treatment Not on file documented as of this encounter Visit Diagnoses Not on filedocumented in this encounter Care Teams Shellfish Shucker Relationship Specialty Start Date End Date Jessica Navarro APRN, CNP [address] [place] [address] PCP - General Family Medicine 01/16/18 Jessica Navarro APRN, CNP [address] [place] [address] Family Medicine 01/16/18 documented as of this encounter
--- OUTSIDE RECORDS SUMMARY | 2024-04-14 18:53 | XMS_ITS | Encounter Summary ---
Author Organization [employer] Care Team Providers Care Firesetter Name Role Phone Jessica Navarro APRN, CNP Primary Care Provider [phone] Jessica Navarro APRN, CNP Unavailable [phone] Encounter Details Date Type Department Care Team [...] on file Legal Sex Female 11:35 AM MEDICAL HISTORIAN Gender Identity Not on file Sexual Orientation Not on file COVID-19 Exposure Response Date Recorded In the last month, have you been in contact with someone who was confirmed or suspected to have Coronavirus / COVID-19? No / Unsure 06/05/2021 7:03 PM MEDICAL HISTORIAN documented as of this encounter Plan of Treatment Not on file documented as of this encounter Visit Diagnoses Not on filedocumented in this encounter Care Teams Firesetter Relationship Specialty Start Date End Date Jessica Navarro APRN, CNP [address] [place] [address] PCP - General Family Medicine 01/16/18 Jessica Navarro APRN, CNP [address] [place] [address] Family Medicine 01/16/18 documented as of this encounter
--- OUTSIDE RECORDS SUMMARY | 2024-04-14 18:53 | XMS_ITS | Encounter Summary ---
Author Organization [facility] Address [address] [place] [address] Phone Care Team Providers Care Product Marketer Name Role Phone Jessica Navarro APRN, CNP Primary Care Provider [phone] Jessica Navarro APRN, CNP Unavailable [phone] Reason for Visit * Consult, Test & Initiate Treatment (Routine) - Closed Specialty Diagnoses / Procedures Referred By Jonas reeves Referred To Contact Sleep Center Diagnoses ELLI (obstructive sleep apnea) Chance Walker MD [address] [place] [address] Phone: tel: fax: [facility] 1 [place] [address] Phone: tel: fax: Referral ID Status Reason Start Date Expiration Date Visits Re quested Visits Authorized [id number] Closed 05/15/2021 1 1 Encounter Details Date Type Department Care Team (Late st Contact Info) Description 06/05/2021 8:00 PM CROSSCUTTER Sleep Lab [facility] 1 [place] [address] Chance Walker MD [address] [place] [address] ELLI (obstructive sleep apnea); Obstructive [...] on file Legal Sex Female 11:35 AM CROSSCUTTER Gender Identity Not on file Sexual Orientation Not on file COVID-19 Exposure Response Date Recorded In the last month, have you been in contact with someone who was confirmed or suspected to have Coronavirus / COVID-19? No / Unsure 06/05/2021 7:03 PM CROSSCUTTER documented as of this encounter Procedure Notes * Chance Walker MD - 06/05/2021 8:00 PM CST EVALUATION REPORT Lilli Santos 06-05-2021 Ms. Lilli Santos, a 26 year old Female (1995), was seen at the [facility] [place] for a sleep apnea evaluation. She has a history significant for Obstructive Sleep Apnea, obesity and shortness of breath. [place] Scale is 21. Her current height is [...] body weight. ??? Avoid alcohol and other BRINE SUPERVISOR depressants. ??? Aggressive treatment of sleep apnea [...] any questions or concerns. Chance Walker MD SCUTTER SCUTTER SCUTTER Associated attestation - Sebastian Dowling MD - 06/18/2021 4:51 PM CROSSCUTTER I have read the Sleep Report for [...] (pediatric) documented in this encounter Care Teams Product Marketer Relationship Specialty Start Date End Date Jessica Navarro APRN, CNP [address] [place] [address] PCP - General Family Medicine 01/16/18 Jessica Navarro APRN, CNP [address] [place] [address] Family Medicine 01/16/18 documented as of this encounter
--- OUTSIDE RECORDS SUMMARY | 2024-04-14 18:53 | XMS_ITS | Encounter Summary ---
Author Organization [facility] Address [address] [place] [address] Phone Care Team Providers Care Patent Chemist Name Role Phone Jessica Navarro APRN, CNP Primary Care Provider [phone] Jessica Navarro APRN, CNP Unavailable [phone] Encounter Details Date Type Department Care Team (Late st Contact Info) Description 02/20/2021 Transcribe Orders [facility] 1 [place] [address] Chance Walker MD [address] [place] [address] Obstructive sleep apnea (Primary Dx) Social History Tobacco Use Types Packs/Day Years Used Date Smoking Tobacco: Former Cigarettes Q uit: 09/13/2020 Smokeless Tobacco: Never Alcohol Use Standard Drinks/Week Comments No 0 (1 standard drink = 0.6 oz pur e alcohol) Comments No Sex and Gender Information Value Date Recorded Sex Assigned at Not on file Legal Sex Female 11:35 AM LIVESTOCK INSPECTOR Gender Identity Not on file Sexual Orientation [...] (pediatric) documented in this encounter Care Teams Patent Chemist Relationship Specialty Start Date End Date Jessica Navarro APRN, CNP [address] [place] [address] PCP - General Family Medicine 01/16/18 Jessica Navarro APRN, CNP [address] [place] [address] Family Medicine 01/16/18 documented as of this encounter
--- OUTSIDE RECORDS SUMMARY | 2024-04-14 18:53 | XMS_ITS | Encounter Summary ---
Author Organization [facility] Address [address] [place] [address] Phone Care Team Providers Care Custom Frame Assembler Name Role Phone Jessica Navarro APRN, CNP Primary Care Provider [phone] Jessica Navarro APRN, CNP Unavailable [phone] Reason for Referral * Consult, Test & Initiate Treatment (Routine) - Closed Specialty Diagnoses / Procedures Referred By Jonas reeves Referred To Contact Sleep Center Diagnoses ELLI (obstructive sleep apnea) Chance Walker MD [address] [place] [address] Phone: tel: fax: [facility] 1 [place] [address] Phone: tel: fax: Referral ID Status Reason Start Date Expiration Date Visits Re quested Visits Authorized [id number] Closed 02/13/2021 1 1 Scheduling Instructions Lilli [...] mouth., Disp: , Rfl: ergocalciferol (VITAMIN D) 19911 UNIT Capsule, ergocalciferol (vitamin D2) 50,000 unit [...] Diagnoses Sleep disorder, unspecified Jessica Navarro APRN, ICE CREAM VAULT WORKER [address] [place] [address] Phone: tel: fax: Chance Walker MD [address] [place] [address] Phone: tel: fax: Referral ID Status Reason Start Date Expiration Date Visits Re quested Visits Authorized [id number] Closed 1 1 Encounter Details Date Type Department Care Team (Late st Contact Info) Description 02/13/2021 10:15 AM CDT Office Visit [facility] - Pulmonology & [facility] [address] [place] [address] Chance Walker MD [address] [place] [address] ELLI (obstructive sleep apnea) (Primary [...] on file Legal Sex Female 11:35 AM PRODUCE RUNNER Gender Identity Not on file Sexual Orientation [...] Type Start Date End Date Comment Verified Special Events Assistant Mena Allergy Severity: High Reactions: Shortness of Breath Stacie Jaramillo, [facility] Medication List: Current Outpatient Medications Medication Sig Dispense Refill ??? albuterol (PROVENTIL HFA, VENTOLIN HFA) 108 (90 BASE) MCG/ACT Aerosol Solution take 2 Puffs by inhalation every 6 hours as needed for Wheezing. 1 Inhaler 0 ??? cyclobenzaprine (FLEXERIL) 10 MG Tablet Take 10 mg by mouth. ??? ergocalciferol (VITAMIN D) 60729 UNIT Capsule ergocalciferol (vitamin D2) 50,000 unit [...] disorder documented in this encounter Care Teams Custom Frame Assembler Relationship Specialty Start Date End Date Jessica Navarro APRN, CNP [address] [place] [address] PCP - General Family Medicine 01/16/18 Jessica Navarro APRN, CNP [address] [place], [place] [address] Family Medicine 01/16/18 documented as of this encounter
--- OUTSIDE RECORDS SUMMARY | 2024-04-14 18:53 | XMS_ITS | Encounter Summary ---
Author Organization [facility] Address [address] [place] [address] Phone Care Team Providers Care Director Meetings Name Role Phone Jessica Navarro APRN, CNP Primary Care Provider [phone] Jessica Navarro APRN, CNP Unavailable [phone] Reason for Visit * Consult, Test & Initiate Treatment (Routine) - Closed Specialty Diagnoses / Procedures Referred By Jonas reeves Referred To Contact Sleep Center Diagnoses ELLI (obstructive sleep apnea) Chance Walker MD [address] [place] [address] Phone: tel: fax: [facility] 1 [place] [address] Phone: tel: fax: Referral ID Status Reason Start Date Expiration Date Visits Re quested Visits Authorized [id number] Closed 02/13/2021 1 1 Encounter Details Date Type Department Care Team (Latest Contact Info) Description 02/20/2021 1:00 PM CDT Outpatient Clinic Visit [facility] 1 [place] [address] Chance Walker MD [address] [place] [address] ELLI (obstructive sleep apnea); Obstructive [...] on file Legal Sex Female 11:35 AM BODY RECALL INSTRUCTOR Gender Identity Not on file Sexual [...] neck size is 14.0 inches and her [place] score was reported as 21. Her current [...] documented in this encounter Care Teams Director Meetings Relationship Specialty Start Date End Date Jessica Navarro APRN, TALIA [address] [place] [address] PCP - General Family Medicine 01/16/18 Jessica Navarro APRN, CNP [address] [place] [address] Family Medicine 01/16/18 documented as of this encounter
--- OUTSIDE RECORDS SUMMARY | 2024-04-14 18:53 | XMS_ITS | Encounter Summary ---
Author Organization [facility] Address [address] [place] [address] Phone Care Team Providers Care Weigher And Charger Name Role Phone Jessica Navarro APRN, CNP Primary Care Provider [phone] Jessica Navarro APRN, CNP Unavailable [phone] Encounter Details Date Type Department Care Team (Late st Contact Info) Description 06/05/2021 Transcribe Orders [facility] 1 [place] [address] Chance Walker MD [address] [place] [address] Obstructive sleep apnea (Primary Dx) Social History Tobacco Use Types Packs/Day Years Used Date Smoking Tobacco: Former Cigarettes Q uit: 09/13/2020 Smokeless Tobacco: Never Alcohol Use Standard Drinks/Week Comments No 0 (1 standard drink = 0.6 oz pur e alcohol) Comments No Sex and Gender Information Value Date Recorded Sex Assigned at Not on file Legal Sex Female 11:35 AM DIRECT CARE COUNSELOR Gender Identity Not on file Sexual Orientation Not on file COVID-19 Exposure Response Date Recorded In the last month, have you been in contact with someone who was confirmed or suspected to have Coronavirus / COVID-19? No / Unsure 05/15/2021 10:01 AM DIRECT CARE COUNSELOR documented as of this encounter Plan of Treatment Not on file documented as of this encounter Results * SPLIT NIGHT PSG (06/06/2021) us Chance Walker MD SLEEP CENTER ORDERABLES Final Re sult documented in this encounter Visit Diagnoses Diagnosis Obstructive sleep apnea- Primary Obstructive sleep apnea (adult) (pediatric) documented in this encounter Care Teams Weigher And Charger Relationship Specialty Start Date End Date Jessica Navarro APRN, CNP [address] [place] [address] PCP - General Family Medicine 01/16/18 Jessica Navarro APRN, CNP [address] [place] [address] Family Medicine 01/16/18 documented as of this encounter
--- OUTSIDE RECORDS SUMMARY | 2024-04-14 18:53 | XMS_ITS | Encounter Summary ---
Author Organization [facility] Address [address] [place] [address] Phone Care Team Providers Care Supervisor Lead Refinery Name Role Phone Jessica Navarro APRN, CNP Primary Care Provider [phone] Jessica Navarro APRN, CNP Unavailable [phone] Reason for Visit * Reason Onset Date Comments Results 03/01/2021 sleep study Encounter Details Date Type Department Care Team ([facility] st Contact Info) Description 03/01/2021 Telephone [facility] - Pulmonology & Sleep Medicine [facility] [address] [place] [address] Chance Walker MD [address] [place] [address] Results (sleep study ) Social History Tobacco Use Types Packs/Day Years Used Date Smoking Tobacco: Former Cigarettes Q uit: 09/13/2020 Smokeless Tobacco: Never Alcohol Use Standard Drinks/Week Comments No 0 (1 standard drink = 0.6 oz pur e alcohol) Comments No Sex and Gender Information Value Date Recorded Sex Assigned at Not on file Legal Sex Female 11:35 AM LAW ENFORCEMENT OFFICER Gender Identity Not on file Sexual [...] on filedocumented in this encounter Care Teams Supervisor Lead Refinery Relationship Specialty Start Date End Date Jessica Navarro APRN, CONSULTING SERVICES MANAGER [address] [place] [address] PCP - General Family Medicine 01/16/18 Jessica Navarro APRN, CONSULTING SERVICES MANAGER [address] [place] [address] Family Medicine 01/16/18 documented as of this encounter
--- OUTSIDE RECORDS SUMMARY | 2024-04-14 18:53 | XMS_ITS | Encounter Summary ---
Author Organization [employer] Care Team Providers Care Bed Teacher Name Role Phone Jessica Navarro APRN, CNP Primary Care Provider [phone] Jessica Navarro APRN, CNP Unavailable [phone] Encounter Details Date Type Department Care Team [...] file Legal Sex Female 11:35 AM BUSINESS SYSTEMS CONSULTANT Gender Identity Not on file Sexual Orientation Not on file COVID-19 Exposure Response Date Recorded In the last 10 days, have yo u been in contact with someone who was confirmed or suspected to have Coronavirus/COVID-19? No / Unsure 05/23/2022 1:49 PM BUSINESS SYSTEMS CONSULTANT documented as of this encounter Plan of Treatment Not on file documented as of this encounter Visit Diagnoses Not on filedocumented in this encounter Care Teams Bed Teacher Relationship Specialty Start Date End Date Jessica Navarro APRN, CNP [address] [place] [address] PCP - General Family Medicine 01/16/18 Jessica Navarro APRN, CNP [address] [place] [address] Family Medicine 01/16/18 documented as of this encounter
--- OUTSIDE RECORDS SUMMARY | 2024-04-14 18:53 | XMS_ITS | Encounter Summary ---
Author Organization [facility] Address [address] [place] [address] Phone Care Team Providers Care Industrial Analyst Name Role Phone Jessica Navarro APRN, CNP Primary Care Provider [phone] Jessica Navarro APRN, CNP Unavailable [phone] Reason for Referral * Radiology Services (Routine) - Closed Specialty Diagnoses / Procedures Referred By Jonas t Referred To Contact Radiology Diagnoses Pain in right wrist Procedures XR WRIST 3 OR MORE VIEWS RIGHT Jessica Navarro APRN, CNP [address] [place] [address] Phone: tel: fax: Referral ID Status Reason Start Date Expiration Date Visits Re quested Visits Authorized [id number] Closed 05/23/2022 1 1 ULAR TANK COOPER Encounter Details Date Type Department Care Team (Late st Contact Info) Description 05/23/2022 Transcribe Orders [facility] Central Scheduling [address] [place] [address] Jessica Navarro APRN, CNP [address] [place] [address] Pain in right wrist (Primary Dx) Social History Tobacco Use Types Packs/Day Years Used Date Smoking Tobacco: Former Cigarettes Q uit: 09/13/2020 Smokeless Tobacco: Never Alcohol Use Standard Drinks/Week Comments No 0 (1 standard drink = 0.6 oz pur e alcohol) Comments No Sex and Gender Information Value Date Recorded Sex Assigned at Not on file Legal Sex Female 11:35 AM CIRCULAR TANK COOPER Gender Identity Not on file Sexual Orientation Not on file documented as of this encounter Plan of Treatment Not on file documented as of this encounter Results * XR WRIST 3 OR MORE VIEWS RIGHT (05/23/2022 2:12 PM CIRCULAR TANK COOPER) Anatomical Region Laterality Modality UPPER EXTREMITY, wrist Right Digital R adiography 05/24/2022 8:26 AM CIRCULAR TANK COOPER Impressions 05/24/2022 8:29 AM CIRCULAR TANK COOPER IMPRESSION: ?? No acute osseous abnormality. Narrative 05/24/2022 8:29 AM CIRCULAR TANK COOPER EXAM DESCRIPTION: ?? XR WRIST 3 OR [...] AM T: ??05/24/2022 8:26 AM Report ID: [id number] Reading Location: ??[id number] Procedure Note Yefri Goodman MD - 05/24/2022 [...] Yefri Goodman M.D. AG: AG Report ID: [id number] Reading Location: [id number] IMPRESSION: No acute osseous abnormality. Jessica Navarro APRN, CNP IMG DIAGNOSTIC ORDERABLES Final Result documented in this encounter Visit Diagnoses Diagnosis Pain in right wrist- Primary Pain in joint, forearm Pain in right wrist Pain in joint, forearm documented in this encounter Care Teams Industrial Analyst Relationship Specialty Start Date End Date Jessica Navarro APRN, CNP [address] [place], [place] [id number] PCP - General Family Medicine 01/16/18 Jessica Navarro APRN, CNP [address] [place] [address] Family Medicine 01/16/18 documented as of this encounter
--- OUTSIDE RECORDS SUMMARY | 2024-04-14 18:53 | XMS_ITS | Encounter Summary ---
Author Organization [employer] Care Team Providers Care Senior Manager Creative Services Name Role Phone Jessica Navarro APRN, CNP Primary Care Provider [phone] Jessica Navarro APRN, CNP Unavailable [phone] Encounter Details Date Type Department Care Team [...] on file Legal Sex Female 11:35 AM INSIDE FINISHER Gender Identity Not on file Sexual Orientation [...] on filedocumented in this encounter Care Teams Senior Manager Creative Services Relationship Specialty Start Date End Date Jessica Navarro APRN, CNP [address] [place] [address] PCP - General Family Medicine 01/16/18 Jessica Navarro APRN, CNP [address] [place] [address] Family Medicine 01/16/18 documented as of this encounter
--- OUTSIDE RECORDS SUMMARY | 2024-04-14 18:53 | XMS_ITS | Encounter Summary ---
Author Organization [facility] Address [address] [place] [address] Phone Care Team Providers Care Information Assurance Engineer Name Role Phone Jessica Navarro APRN, CNP Primary Care Provider [phone] Jessica Navarro APRN, CNP Unavailable [phone] Reason for Visit * Reason Onset Date Comments Results 06/24/2021 Sleep study Encounter Details Date Type Department Care Team ([facility] st Contact Info) Description 06/24/2021 Telephone [facility] - Pulmonology & Sleep Medicine [facility] [address] [place] [address] Chance Walker MD [address] [place] [address] Results (Sleep study ) Social History Tobacco Use Types Packs/Day Years Used Date Smoking Tobacco: Former Cigarettes Q uit: 09/13/2020 Smokeless Tobacco: Never Alcohol Use Standard Drinks/Week Comments No 0 (1 standard drink = 0.6 oz pur e alcohol) Comments No Sex and Gender Information Value Date Recorded Sex Assigned at Not on file Legal Sex Female 11:35 AM ASPNET DEVELOPER Gender Identity Not on file Sexual Orientation Not on file COVID-19 Exposure Response Date Recorded In the last month, have you been in contact with someone who was confirmed or suspected to have Coronavirus / COVID-19? No / Unsure 06/05/2021 7:03 PM ASPNET DEVELOPER documented as of this encounter Miscellaneous Notes * Telephone Encounter - Char Longo RN - 06/24/2021 3:50 PM ASPNET DEVELOPER Patient is aware and verbalizes understanding. ET DEVELOPER * Telephone Encounter - Char Longo RN - 06/24/2021 1:25 PM ASPNET DEVELOPER Left message for patient to call back. ET DEVELOPER * Telephone Encounter - Char Longo RN - 06/24/2021 9:58 AM ASPNET DEVELOPER SUMMARY: ?? The patient???s overall Apnea-hypopnea index [...] body weight. ?? Avoid alcohol and other DISTRICT SALES LEADER depressants. ?? Aggressive treatment of sleep apnea is not needed at this time ?? A high sleep efficiency is often associated with chronic sleep restriction. She should be instructed to obtain a sufficient amount of sleep on a routine basis ET DEVELOPER documented in this encounter Plan of Treatment Not on file documented as of this encounter Visit Diagnoses Not on filedocumented in this encounter Care Teams Information Assurance Engineer Relationship Specialty Start Date End Date Jessica Navarro APRN, CNP [address] [place] [address] PCP - General Family Medicine 01/16/18 Jessica Navarro APRN, CNP [address] [place] [address] Family Medicine 01/16/18 documented as of this encounter
--- OUTSIDE RECORDS SUMMARY | 2024-04-14 18:53 | XMS_ITS | Encounter Summary ---
Author Organization [employer] Care Team Providers Care Vmware Systems Administrator Name Role Phone Jessica Navarro APRN, CNP Primary Care Provider [phone] Jessica Navarro APRN, CNP Unavailable [phone] Encounter Details Date Type Department Care Team [...] on file Legal Sex Female 11:35 AM FOREST PATHOLOGIST Gender Identity Not on file Sexual Orientation [...] on filedocumented in this encounter Care Teams Vmware Systems Administrator Relationship Specialty Start Date End Date Jessica Navarro APRN, CNP [address] [place] [address] PCP - General Family Medicine 01/16/18 Jessica Navarro APRN, CNP [address] [place] [address] Family Medicine 01/16/18 documented as of this encounter
--- OUTSIDE RECORDS SUMMARY | 2024-04-14 18:53 | XMS_ITS | Encounter Summary ---
Author Organization [facility] Address [address] [place] [address] Phone Care Team Providers Care Mechanical Assembler Name Role Phone Jessica Navarro APRN, CNP Primary Care Provider [phone] Jessica Navarro APRN, CNP Unavailable [phone] Reason for Visit * Reason Comments High Blood Sugar Encounter Details Date Type Department Care Team (Late st Contact Info) Description 04/17/2022 9:09 PM HOMICIDE SQUAD COMMANDING OFFICER - 04/18/2022 12:16 AM [facility] Emergency [facility] Emergency [address] [place] [address] Nelson Pearson MD [address] [place] [address] Acute cystitis without hematuria Discharge Disposition: Discharged [...] on file Legal Sex Female 11:35 AM HOMICIDE SQUAD COMMANDING OFFICER Gender Identity Not on file Sexual Orientation Not on file COVID-19 Exposure Response Date Recorded In the last 10 days, have yo u been in contact with someone who was confirmed or suspected to have Coronavirus/COVID-19? No / Unsure 04/17/2022 9:02 PM HOMICIDE SQUAD COMMANDING OFFICER documented as of this encounter Last Filed Vital Signs Vital Sign Reading Time Taken Comments Blood Pressure 93/59 04/18/2022 12:00 AM HOMICIDE SQUAD COMMANDING OFFICER Pulse 82 04/18/2022 12:00 AM HOMICIDE SQUAD COMMANDING OFFICER Temperature 37.1 ??C (98.7 ??F) 04/17/2022 9:02 PM CS T Respiratory Rate 21 04/18/2022 12:00 AM HOMICIDE SQUAD COMMANDING OFFICER Oxygen Saturation 99% 04/18/2022 12:00 AM HOMICIDE SQUAD COMMANDING OFFICER Inhaled Oxygen Concentration - - Weight 81.6 kg (180 lb) 04/17/2022 9:02 PM HOMICIDE SQUAD COMMANDING OFFICER Height 160 cm (5' 3 ) 04/17/2022 9:02 PM HOMICIDE SQUAD COMMANDING OFFICER Body Mass Index 31.89 04/17/2022 9:02 PM HOMICIDE SQUAD COMMANDING OFFICER documented in this encounter Discharge Instructions * Discharge Instructions* Nelson Pearson MD - 04/18/2022 12:00 AM HOMICIDE SQUAD COMMANDING OFFICER Begin to take your blood sugar twice a day. Alternate breakfast and dinner on 1 day and the next dolunch and bedtime. Continue this until you see the spool sorter and document it for the spool sorter. If possible, do 1 or 2 blood sugar is at 2 or 3 in the morning. This may also assist the end ocrinologist in certain situations. Take the Diflucan when you finish the Keflex for the urinary tract infection CIDE SQUAD COMMANDING OFFICER * Attachments The following attachments cannot be sent through Care Everywhere. * Urinary Tract Infection Adult (Cymraes) * Hyperglycemia Ddsp-er-Gtcd (Cymraes) documented in this encounter Medications at Time of Discharge albuterol (PROVENTIL HFA, VENTOLIN HFA) 108 (90 BASE) MCG/ACT Aerosol Solution take 2 Puffs by inhalation every 6 hours as needed for Wheezing. 1 Inhaler 0 05/19/2016 cyclobenzaprine (FLEXERIL) 10 MG Tablet Take 10 mg by mouth. 12/30/2017 ergocalciferol (VITAMIN D) 63010 UNIT Capsule ergocalciferol (vitamin D2) 50,000 unit [...] per ambulatory mode with self as responsible democrat. SL D/C'ed with Arpit cath intact. CIDE SQUAD COMMANDING OFFICER * Aleksandra Cao RN - 04/17/2022 11:24 PM CST Pt medicated per provider orders. Pt educated on intended effects and side effects of medication and verbalized understanding. Pt able to provide teach- back of education. CIDE SQUAD COMMANDING OFFICER * Aleksandra Cao RN - 04/17/2022 11:23 PM CST Pt medicated per provider orders. Pt educated on intended effects and side effects of medication and verbalized understanding. Pt able to provide teach- back of education. CIDE SQUAD COMMANDING OFFICER * Aleksandra Cao RN - 04/17/2022 10:31 PM CST Pt medicated per provider orders. Pt educated on intended effects and side effects of medication and verbalized understanding. Pt able to provide teach- back of education. CIDE SQUAD COMMANDING OFFICER * Aleksandra Cao RN - 04/17/2022 10:10 PM CST Pt medicated per provider orders. Pt educated on intended effects and side effects of medication and verbalized understanding. Pt able to provide teach- back of education. CIDE SQUAD COMMANDING OFFICER * Aleksandra Cao RN - 04/17/2022 9:48 PM CST Pt medicated per provider orders. Pt educated on intended effects and side effects of medication and verbalized understanding. Pt able to provide teach- back of education. CIDE SQUAD COMMANDING OFFICER * Nelson Pearson MD - 04/17/2022 9:33 [...] mg by mouth. ??? ergocalciferol (VITAMIN D) 11628 UNIT Capsule ergocalciferol (vitamin D2) 50,000 unit [...] Abnormality Status --------- ------ CBC with Auto Differential[[id number]] Abnormal Final result Please view results for [...] 250. Discussed documenting blood sugars for the spool sorter appointment, twice a day testing alternating breakfast [...] patient to follow-up with: Jessica Navarro, ESTELITA, SHRIMP HEADER [address] [place] [id number] In 1 week Dispostion: Discharge CIDE SQUAD COMMANDING OFFICER * Kenny Hardy RN - 04/17/2022 9:07 [...] noted. Pt BS is 396 in triage. CIDE SQUAD COMMANDING OFFICER documented in this encounter Plan of Treatment Not on file documented as of this encounter Procedures Procedure Name Priority Date/Time Associated Diagnosis Comments POCT GLUCOSE STAT 04/17/2022 11:50 PM HOMICIDE SQUAD COMMANDING OFFICER POCT GLUCOSE STAT 04/17/2022 10:14 PM HOMICIDE SQUAD COMMANDING OFFICER POCT URINE HCG () STAT 04/17/2022 10:06 PM HOMICIDE SQUAD COMMANDING OFFICER URINALYSIS REFLEX IF INDICATED BY ABNORMAL RESULTS STAT 04/17/2022 9:35 PM HOMICIDE SQUAD COMMANDING OFFICER CBC WITH AUTO DIFFERENTIAL STAT 04/17/2022 9:35 PM HOMICIDE SQUAD COMMANDING OFFICER CULTURE, URINE STAT 04/17/2022 9:35 PM HOMICIDE SQUAD COMMANDING OFFICER CMP (COMPREHENSIVE METABOLIC PANEL) STAT 04/17/2022 9:35 PM HOMICIDE SQUAD COMMANDING OFFICER COMPLETE BLOOD COUNT (CBC) WITH DIFF STAT 04/17/2022 9:35 PM HOMICIDE SQUAD COMMANDING OFFICER POCT GLUCOSE STAT 04/17/2022 9:04 PM HOMICIDE SQUAD COMMANDING OFFICER documented in this encounter Results * (ABNORMAL) POCT Glucose (04/17/2022 11:50 PM HOMICIDE SQUAD COMMANDING OFFICER) Only the most recent of3 resultswithin the time period is included. [facility] GLUCOSE,BEDSID E POCT 261(H) 70 - 99 mg/dL 04/17/2022 11:56 PM HOMICIDE SQUAD COMMANDING OFFICER [facility] Comment:Patient RN Performed Blood 04/17/2022 11:5 0 PM HOMICIDE SQUAD COMMANDING OFFICER 04/17/2022 11:56 PM HOMICIDE SQUAD COMMANDING OFFICER us None Provider POINT OF CARE TESTING Final Resu lt [facility] [address] [place] [address] * POCT Urine HCG () (04/17/2022 10:06 PM HOMICIDE SQUAD COMMANDING OFFICER) [facility] POC URINE Negative POC URINE CONTROL [employer] [place] Urine 04/17/2022 10:0 6 PM HOMICIDE SQUAD COMMANDING OFFICER us Nelson Pearson MD POINT OF CARE TESTING (MANUAL) Final Result * Culture, Urine (04/17/2022 9:35 PM HOMICIDE SQUAD COMMANDING OFFICER) CULTURE RESULTS MIXED GROWTH OF ONE OR MORE DISTAL URETHRAL CONTAMINANTS 04/19/2022 3:23 PM HOMICIDE SQUAD COMMANDING OFFICER [facility] Urine URINE SPECIMEN / Unknown Non-Phlebotomy Collection / Unknown 04/17/2022 9:35 PM HOMICIDE SQUAD COMMANDING OFFICER 04/17/2022 10:22 PM HOMICIDE SQUAD COMMANDING OFFICER us Nelson Pearson MD MICROBIOLOGY - GENERAL ORDERABL ES Final Result [facility] [address] [place] [address], [place] * (ABNORMAL) CBC with Auto Differential (04/17/2022 9:35 PM HOMICIDE SQUAD COMMANDING OFFICER) Pathologist [facility] WBC 12.23(H) 4.00 - 12.00 10(3)/mcL 04/17/2022 9:43 PM HOMICIDE SQUAD COMMANDING OFFICER [facility] RBC 4.57 3.80 - 5.30 10(6)/[facility] 04/17/2022 9:43 PM HOMICIDE SQUAD COMMANDING OFFICER [facility] HEMOGLOBIN (HGB) 14.5 12.0 - 15.8 g/dL 04/17/2022 9:43 PM [facility] HEMATOCRIT (HCT) 40.8 36.0 - 47.0 % 04/17/2022 9:43 PM [facility] MCV 89.3 82.0 - 96.0 fL 04/17/2022 9:43 PM [facility] MCH 31.7 26.0 - 34.0 pg 04/17/2022 9:43 PM HOMICIDE SQUAD COMMANDING OFFICER [facility] MCHC 35.5 31.0 - 36.0 g/dL 04/17/2022 9:43 PM [facility] PLATELET COUNT 208 140 - 440 10(3)/[facility] 04/17/2022 9:43 PM [facility] RDW 11.8 11.8 - 15.5 % 04/17/2022 9:43 PM [facility] MPV 12.5(H) 9.7 - 12.4 fL 04/17/2022 9:43 PM HOMICIDE SQUAD COMMANDING OFFICER [facility] NEUTROPHILS 72.5 47.0 - 73.0 % 04/17/2022 9:43 PM HOMICIDE SQUAD COMMANDING OFFICER [facility] LYMPHOCYTES 19.7 18.0 - 42.0 % 04/17/2022 9:43 PM HOMICIDE SQUAD COMMANDING OFFICER [facility] MONOCYTES 5.2 4.0 - 12.0 % 04/17/2022 9:43 PM HOMICIDE SQUAD COMMANDING OFFICER [facility] EOSINOPHILS 2.0 0.0 - 5.0 % 04/17/2022 9:43 PM HOMICIDE SQUAD COMMANDING OFFICER [facility] BASOPHILS 0.6 0.0 - 1.0 % 04/17/2022 9:43 PM [facility] ABSOLUTE NEUTROPHILS 8.88(H) 1.60 - 7.70 10(3)/[facility] 04/17/2022 9:43 PM [facility] ABSOLUTE LYMPHOCYTES 2.41 1.30 - 3.20 10(3)/[facility] 04/17/2022 9:43 PM [facility] ABSOLUTE MONOCYTES 0.63 0.20 - 1.00 10(3)/[facility] 04/17/2022 9:43 PM [facility] ABSOLUTE EOSINOPHIL 0.24 0.00 - 0.40 10(3)/[facility] 04/17/2022 9:43 PM [facility] ABSOLUTE BASOPHILS 0.07 0.00 - 0.10 10(3)/[facility] 04/17/2022 9:43 PM [facility] NRBC PER 100 WBC 0 04/17/20 9:43 PM [facility] Blood Venipuncture / Unknown 04/17/2022 9:35 PM HOMICIDE SQUAD COMMANDING OFFICER 04/17/2022 9:41 PM HOMICIDE SQUAD COMMANDING OFFICER us Nelson Pearson MD HEMATOLOGY ORDERABLES Final Res ult [facility] [address] [place] [address] * (ABNORMAL) Urinalysis w/ Reflex (04/17/2022 9:35 PM [facility]) SPECIFIC GRAVITY 1.015 1.003 - 1.030 04/17/2022 10:47 PM [facility] URINE PH 5.0 5.0 - 9.0 04/17/2022 10:47 PM [facility] WBC ESTERASE 500 /uL(A) Negative 04/17/2022 10:47 PM [facility] NITRITE Negative Negative 04/17/2022 10:47 PM [facility] PROTEIN, RANDOM URINE 15 mg/dL(A) Negative 04/17/2022 10:47 PM [facility] URINE GLUCOSE, QUAL 1000 mg/dL(A) Negative 04/17/2022 10:47 PM [facility] URINE KETONES 50 mg/dL(A) Negative 04/17/2022 10:47 PM [facility] UROBILINOGEN Normal Normal mg/dL 04/17/2022 10:47 PM [facility] URINE BLOOD 25 /uL(A) Negative nakita/ul 04/17/2022 10:47 PM [facility] URINALYSIS COLOR Yellow 04/17/20 10:47 PM [facility] URINALYSIS CLARITY Very Cloudy 04/17/2022 10:47 PM [facility] WBC (Urine) 51-150(A) Negative, 0-5 /hpf 04/17/2022 10:47 PM [facility] URINE RBC'S 3-5(A) Negative, 0-2 /hpf 04/17/2022 10:47 PM [facility] EPITHELIAL CELLS Moderate amount /lpf 04/17/2022 10:47 PM [facility] BACTERIA, URINE Moderate(A) Negative /hpf 04/17/2022 10:47 PM [facility] Urine URINE SPECIMEN / Unknown Non-Phlebotomy Collection / Unknown 04/17/2022 9:35 PM HOMICIDE SQUAD COMMANDING OFFICER 04/17/2022 10:22 PM HOMICIDE SQUAD COMMANDING OFFICER us Nelson Pearson MD URINE ORDERABLES Final Result [facility] [address] [place] [address] * (ABNORMAL) CMP (04/17/2022 9:35 PM HOMICIDE SQUAD COMMANDING OFFICER) SODIUM 133(L) 136 - 144 mmol/L 04/17/2022 10:11 PM HOMICIDE SQUAD COMMANDING OFFICER [facility] POTASSIUM 3.9 3.5 - 5.1 mmol/L 04/17/2022 10:11 PM HOMICIDE SQUAD COMMANDING OFFICER [facility] CHLORIDE 96(L) 100 - 110 mmol/L 04/17/2022 10:11 PM [facility] CO2, VENOUS 24 22 - 32 mmol/L 04/17/2022 10:11 PM [facility] ANION GAP 16.9 8.0 - 20.0 mmol/L 04/17/2022 10:11 PM [facility] GLUCOSE 390(H) 70 - 99 mg/dL 04/17/2022 10:11 PM [facility] BUN 12 6 - 20 mg/dL 04/17/2022 10:11 PM [facility] CREATININE, BLOOD 0.80 0.60 - 1.10 mg/dL 04/17/2022 10:11 PM [facility] BUN/CREATININE RATIO 15 12 - 20 ratio 04/17/2022 10:11 PM [facility] TOTAL PROTEIN 7.4 6.0 - 8.3 g/dL 04/17/2022 10:11 PM [facility] ALBUMIN 4.5 3.5 - 5.2 g/dL 04/17/2022 10:11 PM [facility] Comment: The colormetric methods used for the determination of Albumin may lead to falsely elevated test results in patients suffering from renal failure or insufficiency due to interference with other proteins. A/G RATIO 1.6 1.0 - 2.0 04/17/2022 10:11 PM HOMICIDE SQUAD COMMANDING OFFICER [facility] CALCIUM 9.8 8.9 - 10.3 mg/dL 04/17/2022 10:11 PM HOMICIDE SQUAD COMMANDING OFFICER [facility] T BILI 0.5 <=1.2 mg/dL 04/17/2022 10:11 PM HOMICIDE SQUAD COMMANDING OFFICER [facility] SGOT (AST) 160(H) <=32 U/L 04/17/2022 10:11 PM HOMICIDE SQUAD COMMANDING OFFICER [facility] SGPT (ALT) 101(H) <=41 U/L 04/17/2022 10:11 PM [facility] ALKALINE PHOSPHATASE 112(H) 35 - 105 U/L 04/17/2022 10:11 PM HOMICIDE SQUAD COMMANDING OFFICER [facility] GFR, ESTIMATED >60 >=60 04/17/2022 10:11 PM HOMICIDE SQUAD COMMANDING OFFICER [facility] Comment: Creatinine Clearance is the preferred criteria for selecting drug dose adjustments in renally impaired patients. ??The GFR is provided as additional pertinent clinical information. GFR is reported in mL/min/1.73 sq m. Calculation based on the Chronic Kidney Disease Epidemiology Collaboration (CKD- EPI) equation refit without adjustment for race. GFR, EST. >60 >=60 022 10:11 PM HOMICIDE SQUAD COMMANDING OFFICER [facility] GFR, EST. NONAFRICAN >60 >=60 04/17/2022 10:11 PM [facility] Blood Venipuncture / Unknown 04/17/2022 9:35 PM HOMICIDE SQUAD COMMANDING OFFICER 04/17/2022 9:41 PM HOMICIDE SQUAD COMMANDING OFFICER us Nelson Pearson MD CHEMISTRY ORDERABLES Final Resu lt [facility] [address] [place] [address] documented in this encounter Visit Diagnoses Diagnosis [...] in 24 hours. Given 04/17/2022 10:31 PM HOMICIDE SQUAD COMMANDING OFFICER 650 mg cefTRIAXone (ROCEPHIN) injection 1 g 1 g, Intravenous, ONCE, 1 dose, On Kelly 04/17/22 at 2330, Indications: PyelonephritisIndications:Py elonephritis Given 04/17/2022 11:23 PM HOMICIDE SQUAD COMMANDING OFFICER 1 g fluconazole (DIFLUCAN) tablet 200 mg 200 mg, Oral, ONCE, 1 dose, On Kelly 04/17/22 at 2230, Indications: Obstetric and Gynecologic InfectionIndications:Obstetr ic and Gynecologic Infection Given 04/17/2022 10:09 PM HOMICIDE SQUAD COMMANDING OFFICER 200 mg insulin regular (HumuLIN R;NovoLIN R) [...] Saline after administration. Given 04/17/2022 9:46 PM HOMICIDE SQUAD COMMANDING OFFICER 10 Units sodium chloride 0.9 % 1,000 mL IV bolus 1,000 mL, Intravenous, ONCE, 1 dose, On Kelly 04/17/22 at 2200, Administer over 0.5 Hours New Bag 04/17/2022 9:46 PM HOMICIDE SQUAD COMMANDING OFFICER 1,000 mL 2000 mL/hr documented in this encounter Active and Recently Administered Medications Times are shown in HOMICIDE SQUAD COMMANDING OFFICER. Scheduled Medication Order 04/16/2022 04/17/2022 04/18/2022 acetaminophen [...] 70 documented in this encounter Care Teams Mechanical Assembler Relationship Specialty Start Date End Date Jessica Navarro APRN, SHRIMP HEADER [address] [place] [address] PCP - General Family Medicine 01/16/18 Jessica Navarro APRN, SHRIMP HEADER [address] [place] [address] Family Medicine 01/16/18 documented as of this encounter
--- OUTSIDE RECORDS SUMMARY | 2024-04-14 18:53 | XMS_ITS | Encounter Summary ---
Author Organization [facility] Address [address] [place] [address] Phone Care Team Providers Care Maple Syrup Maker Name Role Phone Jessica Navraro APRN, CNP Primary Care Provider [phone] Jessica Navarro APRN, CNP Unavailable Reason for Referral * Radiology Services (Routine) - Closed Specialty Diagnoses / Procedures Referred By Contac t Referred To Contact Radiology Diagnoses History of chlamydia infection Procedures XR HYSTEROSALPINGOGRAPHY Karen Hale MD [address] [place] [address] Phone: tel: fax: Referral ID Status Reason Start Date Expiration Date Visits Re quested Visits Authorized [id number] Closed 06/16/2022 1 1 NGUAL ACCOUNT MANAGER Encounter Details Date Type Department Care Team (Late st Contact Info) Description 06/16/2022 Transcribe Orders [facility] Central Scheduling [address] [place] [id number] Karen Hale MD [address] [place] [address] History of chlamydia infection (Primary Dx) Social History Tobacco Use Types Packs/Day Years Used Date Smoking Tobacco: Former Cigarettes Q uit: 09/13/2020 Smokeless Tobacco: Never Alcohol Use Standard Drinks/Week Comments No 0 (1 standard drink = 0.6 oz pur e alcohol) Comments No Sex and Gender Information Value Date Recorded Sex Assigned at Not on file Legal Sex Female 11:35 AM BILINGUAL ACCOUNT MANAGER Gender Identity Not on file Sexual Orientation Not on file COVID-19 Exposure Response Date Recorded In the last 10 days, have yo u been in contact with someone who was confirmed or suspected to have Coronavirus/COVID-19? No / Unsure 05/23/2022 1:49 PM BILINGUAL ACCOUNT MANAGER documented as of this encounter Plan of [...] PM T: ??07/17/2022 2:52 PM Report ID: [id number] Reading Location: ??[id number] Procedure Note James Hathaway MD - 07/17/2022 [...] signed by James MARTINEZ: JUAN Report ID: [id number] Reading Location: [id number] IMPRESSION: Normal hysterosalpingogram. Bilateral patent fallopian tubes. Karen Hale MD IMG FLUOROSCOPY ORDERABLES Fi nal Result documented in this encounter Visit Diagnoses Diagnosis History of chlamydia infection- Primary Personal history of other infectious and parasitic disease History of chlamydia infection- Primary Personal history of other infectious and parasitic disease documented in this encounter Care Teams Maple Syrup Maker Relationship Specialty Start Date End Date Jessica Navarro APRN, METHODOLOGIST [address] [place] [address] PCP - General Family Medicine 01/16/18 Jessica Navarro APRN, CNP [address] [place] [address] Family Medicine 01/16/18 documented as of this encounter
--- OUTSIDE RECORDS SUMMARY | 2024-04-14 18:53 | XMS_ITS | Encounter Summary ---
Author Organization [facility] Address [address] [place] [address] Phone Care Team Providers Care Fried Cake Maker Name Role Phone Jessica Navarro APRN, CNP Primary Care Provider [phone] Jessica Navarro APRN, CNP Unavailable [phone] Encounter Details Date Type Department Care Team (Late st Contact Info) Description 06/03/2021 Transcribe Orders [facility] [address] [place] [address] Chance Walker MD [address] [place] [address] Obstructive sleep apnea (Primary Dx) Social History Tobacco Use Types Packs/Day Years Used Date Smoking Tobacco: Former Cigarettes Q uit: 09/13/2020 Smokeless Tobacco: Never Alcohol Use Standard Drinks/Week Comments No 0 (1 standard drink = 0.6 oz pur e alcohol) Comments No Sex and Gender Information Value Date Recorded Sex Assigned at Not on file Legal Sex Female 11:35 AM FLUE BLOWER Gender Identity Not on file Sexual Orientation Not on file COVID-19 Exposure Response Date Recorded In the last month, have you been in contact with someone who was confirmed or suspected to have Coronavirus / COVID-19? No / Unsure 05/15/2021 10:01 AM FLUE BLOWER documented as of this encounter Plan of Treatment Scheduled Orders Name Type Priority Associated Diagnoses Orde r Schedule [facility] Routine Obstructive sleep apnea Expected: 06/03/2021, Expires: 06/03/2022 documented as of this encounter Visit Diagnoses Diagnosis Obstructive sleep apnea- Primary Obstructive sleep apnea (adult) (pediatric) documented in this encounter Care Teams Fried Cake Maker Relationship Specialty Start Date End Date Jessica Navarro APRN, CNP [address] [place], [place] [id number] PCP - General Family Medicine 01/16/18 Jessica Navarro APRN, CNP [address] [place] [address] Family Medicine 01/16/18 documented as of this encounter
--- OUTSIDE RECORDS SUMMARY | 2024-04-14 18:53 | XMS_ITS | Encounter Summary ---
Author Organization [employer] Care Team Providers Care Vamp Liner Name Role Phone Jessica Navarro APRN, CNP Primary Care Provider [phone] Jessica Navarro APRN, CNP Unavailable [phone] Encounter Details Date Type Department Care Team [...] on file Legal Sex Female 11:35 AM ROTARY ENGRAVER Gender Identity Not on file Sexual Orientation Not on file COVID-19 Exposure Response Date Recorded In the last 10 days, have yo u been in contact with someone who was confirmed or suspected to have Coronavirus/COVID-19? No / Unsure 04/17/2022 9:02 PM ROTARY ENGRAVER documented as of this encounter Plan of Treatment Not on file documented as of this encounter Visit Diagnoses Not on filedocumented in this encounter Care Teams Vamp Liner Relationship Specialty Start Date End Date Jessica Navarro APRN, CNP [address] [place] [address] PCP - General Family Medicine 01/16/18 Jessica Navarro APRN, CNP [address] [place] [address] Family Medicine 01/16/18 documented as of this encounter
--- OUTSIDE RECORDS SUMMARY | 2024-04-14 18:53 | XMS_ITS | Encounter Summary ---
Author Organization [facility] Address [address] [place] [address] Phone Care Team Providers Care Mixer Runner Name Role Phone Jessica Navarro APRN, CNP Primary Care Provider [phone] Jessica Navarro APRN, CNP Unavailable [phone] Reason for Visit * Reason Comments Sleep Apnea Shortness of Breath Nicotine Dependence Encounter Details Date Type Department Care Team (Late st Contact Info) Description 05/15/2021 10:15 AM APNS Office Visit [facility] - Pulmonology & Sleep Medicine [facility] [address] [place] [address] Chance Walker MD [address] [place] [address] ELLI (obstructive sleep apnea) (Primary Dx); Non [...] on file Legal Sex Female 11:35 AM APNS Gender Identity Not on file Sexual Orientation Not on file COVID-19 Exposure Response Date Recorded In the last month, have you been in contact with someone who was confirmed or suspected to have Coronavirus / COVID-19? No / Unsure 05/15/2021 10:01 AM APNS documented as of this encounter Last Filed Vital Signs Vital Sign Reading Time Taken Comments Blood Pressure 128/78 05/15/2021 10:10 AM APNS Pulse 101 05/15/2021 10:10 AM APNS Temperature 36.3 ??C (97.4 ??F) 05/15/2021 10:[address] Respiratory Rate 16 05/15/2021 10:10 AM APNS Oxygen Saturation 96% 05/15/2021 10:10 AM APNS Inhaled Oxygen Concentration - - Weight 95.7 kg (211 lb) 05/15/2021 10:10 AM APNS Height 160 cm (5' 3 ) 05/15/2021 10:10 AM APNS Body Mass Index 37.38 05/15/2021 10:10 AM APNS documented in this encounter Progress Notes * [...] Type Start Date End Date Comment Verified Enrichment Specialist Mena Allergy Severity: High Reactions: Shortness of Breath Stacie Jaramillo, CINDY Medication List: Current Outpatient Medications Medication Sig Dispense Refill ??? albuterol (PROVENTIL HFA, VENTOLIN HFA) 108 (90 BASE) MCG/ACT Aerosol Solution take 2 Puffs by inhalation every 6 hours as needed for Wheezing. 1 Inhaler 0 ??? cyclobenzaprine (FLEXERIL) 10 MG Tablet Take 10 mg by mouth. ??? ergocalciferol (VITAMIN D) 83915 UNIT Capsule ergocalciferol (vitamin D2) 50,000 unit [...] appropriate. Chance Walker MD 05/15/2021 10:48 AM APNS documented in this encounter Plan of Treatment Not on file documented as of this encounter Visit Diagnoses Diagnosis ELLI (obstructive sleep apnea)- Primary Obstructive sleep apnea (adult) (pediatric) Non morbid obesity Tobacco use disorder Primary insomnia Persistent disorder of initiating or maintaining sleep documented in this encounter Care Teams Mixer Runner Relationship Specialty Start Date End Date Jessica Navarro APRN, CNP [address] [place] [address] PCP - General Family Medicine 01/16/18 Jessica Navarro APRN, CNP [address] [place] [address] Family Medicine 01/16/18 documented as of this encounter
--- OUTSIDE RECORDS SUMMARY | 2024-04-14 18:53 | XMS_ITS | Encounter Summary ---
Author Organization [facility] Address [address] [place] [address] Phone Care Team Providers Care Junior Oracle Dba Name Role Phone Jessica Navarro APRN, CNP Primary Care Provider [phone] Jessica Navarro APRN, CNP Unavailable [phone] Reason for Referral * Consult, Test & Initiate Treatment (Routine) - Closed Specialty Diagnoses / Procedures Referred By Contdavid reeves Referred To Contact Sleep Center Diagnoses ELLI (obstructive sleep apnea) Chance Walker MD [address] [place] [address] Phone: tel: fax: [facility] [address] [place] [address] Phone: tel: fax: Referral ID Status Reason Start Date Expiration Date Visits Re quested Visits Authorized [id number] Closed 05/15/2021 1 1 Scheduling Instructions Lilli is being referred for split night. Please contact patient for scheduling questions or concerns. D GEOGRAPHY TEACHER Encounter Details Date Type Department Care Team (Late st Contact Info) Description 05/15/2021 Telephone [facility] - Pulmonology & Sleep Medicine [facility] [address] [place] [address] Chance Walker MD [address] [place] [id number] Social History Tobacco Use Types Packs/Day Years Used Date Smoking Tobacco: Former Cigarettes Q uit: 09/13/2020 Smokeless Tobacco: Never Alcohol Use Standard Drinks/Week Comments No 0 (1 standard drink = 0.6 oz pur e alcohol) Comments No Sex and Gender Information Value Date Recorded Sex Assigned at Not on file Legal Sex Female 11:35 AM WORLD GEOGRAPHY TEACHER Gender Identity Not on file Sexual Orientation Not on file COVID-19 Exposure Response Date Recorded In the last month, have you been in contact with someone who was confirmed or suspected to have Coronavirus / COVID-19? No / Unsure 05/15/2021 10:01 AM WORLD GEOGRAPHY TEACHER documented as of this encounter Miscellaneous Notes * Telephone Encounter - Char Longo RN - 05/15/2021 11:00 AM WORLD GEOGRAPHY TEACHER Per Dr. Walker he would like the patient to have a split night sleep study. Referral placed D GEOGRAPHY TEACHER documented in this encounter Plan of Treatment Scheduled Referrals Name Type Priority Associated Diagnoses Orde r Schedule SLEEP STUDY REFERRAL Outpatient Referral Routine ELLI (obstructive sleep apnea) Expected: 05/15/2021, Expires: 05/15/2022 documented as of this encounter Visit Diagnoses Diagnosis ELLI (obstructive sleep apnea)- Primary Obstructive sleep apnea (adult) (pediatric) documented in this encounter Care Teams Junior Oracle Dba Relationship Specialty Start Date End Date Jessica Navarro APRN, AUTOMOBILE DEALER [address] [place] [address] PCP - General Family Medicine 01/16/18 Jessica Navarro APRN, CNP [address] [place], [place] [id number] Family Medicine 01/16/18 documented as of this encounter
--- OUTSIDE RECORDS SUMMARY | 2024-04-14 18:53 | XMS_ITS | Encounter Summary ---
Author Organization [facility] Address [address] [place] [address] Phone Care Team Providers Care Inoculator Name Role Phone Jessica Navarro APRN, CNP Primary Care Provider [phone] Jessica Navarro APRN, CNP Unavailable [phone] Reason for Referral * Radiology Services (Routine) - Closed Specialty Diagnoses / Procedures Referred By Contac t Referred To Contact Radiology Diagnoses Pain in right wrist Procedures XR WRIST 3 OR MORE VIEWS RIGHT Jessica Navarro APRN, CNP [address] [place] [address] Phone: tel: fax: Referral ID Status Reason Start Date Expiration Date Visits Re quested Visits Authorized [id number] Closed 05/23/2022 1 1 ING MACHINE OPERATOR Reason for Visit * Radiology Services (Routine) - Closed Specialty Diagnoses / Procedures Referred By Contac t Referred To Contact Radiology Diagnoses Pain in right wrist Procedures XR WRIST 3 OR MORE VIEWS RIGHT Jessica Navarro APRN, CNP [address] [place] [address] Phone: tel: fax: Referral ID Status Reason Start Date Expiration Date Visits Re quested Visits Authorized [id number] Closed 05/23/2022 1 1 Encounter Details Date Type Department Care Team (Latest Contact Info) Description 05/23/2022 2:00 PM CUTTING MACHINE OPERATOR - 05/23/2022 11:59 PM CUTTING MACHINE OPERATOR Hospital Encounter [facility] Diagnostic Radiology 1 [place] [phone] Jessica Navarro APRN, AIRCRAFT MECHANIC [address] [place] [address] Discharge Disposition: Discharged to home or Selfcare Social History Tobacco Use Types Packs/Day Years Used Date Smoking Tobacco: Former Cigarettes Q uit: 09/13/2020 Smokeless Tobacco: Never Alcohol Use Standard Drinks/Week Comments No 0 (1 standard drink = 0.6 oz pur e alcohol) Comments No Sex and Gender Information Value Date Recorded Sex Assigned at Not on file Legal Sex Female 11:35 AM CUTTING MACHINE OPERATOR Gender Identity Not on file Sexual Orientation Not on file COVID-19 Exposure Response Date Recorded In the last 10 days, have yo u been in contact with someone who was confirmed or suspected to have Coronavirus/COVID-19? No / Unsure 05/23/2022 1:49 PM CUTTING MACHINE OPERATOR documented as of this encounter Medications at Time of Discharge albuterol (PROVENTIL HFA, VENTOLIN HFA) 108 (90 BASE) MCG/ACT Aerosol Solution take 2 Puffs by inhalation every 6 hours as needed for Wheezing. 1 Inhaler 0 05/19/2016 cyclobenzaprine (FLEXERIL) 10 MG Tablet Take 10 mg by mouth. 12/30/2017 ergocalciferol (VITAMIN D) 71328 UNIT Capsule ergocalciferol (vitamin D2) 50,000 unit [...] MORE VIEWS RIGHT Routine 05/23/2022 2:12 PM CUTTING MACHINE OPERATOR Pain in right wrist documented in this encounter Results * XR WRIST 3 OR MORE VIEWS RIGHT (05/23/2022 2:12 PM CUTTING MACHINE OPERATOR) Anatomical Region Laterality Modality UPPER EXTREMITY, wrist Right Digital R adiography 05/24/2022 8:26 AM CUTTING MACHINE OPERATOR Impressions 05/24/2022 8:29 AM CUTTING MACHINE OPERATOR IMPRESSION: ?? No acute osseous abnormality. Narrative 05/24/2022 8:29 AM CUTTING MACHINE OPERATOR EXAM DESCRIPTION: ?? XR WRIST 3 OR [...] AM T: ??05/24/2022 8:26 AM Report ID: [id number] Reading Location: ??[id number] Procedure Note Yefri Goodman MD - 05/24/2022 [...] Yefri Goodman M.D. AG: KECIA Report ID: [id number] Reading Location: [place] [address] IMPRESSION: No acute osseous abnormality. Jessica Navarro APRN, CNP IMSlava DIAGNOSTIC ORDERABLES Final Result documented in this encounter Visit Diagnoses Diagnosis Pain in right wrist Pain in joint, forearm documented in this encounter Care Teams Inoculator Relationship Specialty Start Date End Date Jessica Navarro APRN, CNP [address] [place] [address] PCP - General Family Medicine 01/16/18 Jessica Navarro APRN, CNP [address] [place] [address] Family Medicine 01/16/18 documented as of this encounter
--- OUTSIDE RECORDS SUMMARY | 2024-04-14 18:53 | XMS_ITS | Encounter Summary ---
Author Organization [facility] Address [address] [place] [address] Phone Care Team Providers Care Brim Stretching Machine Operator Name Role Phone Jessica Navarro APRN, CNP Primary Care Provider [phone] Jessica Navarro APRN, CNP Unavailable [phone] Reason for Referral * Other (Routine) - Closed Specialty Diagnoses / Procedures Referred By Contdavid t Referred To Contact Neurology Diagnoses Anesthesia of skin Procedures EMG Jessica Navarro APRN, CNP [address] [place] [address] Phone: tel: fax: Referral ID Status Reason Start Date Expiration Date Visits Re quested Visits Authorized [id number] Closed 05/30/2022 1 1 [facility] Encounter Details Date Type Department Care Team (Late st Contact Info) Description 05/30/2022 Transcribe Orders [facility] Central Scheduling 1 [place] [address] Jessica aNvarro APRN, CNP [address] [place] [address] Anesthesia of skin (Primary Dx) Social History Tobacco Use Types Packs/Day Years Used Date Smoking Tobacco: Former Cigarettes Q uit: 09/13/2020 Smokeless Tobacco: Never Alcohol Use Standard Drinks/Week Comments No 0 (1 standard drink = 0.6 oz pur e alcohol) Comments No Sex and Gender Information Value Date Recorded Sex Assigned at Not on file Legal Sex Female 11:35 AM TEACHER PUBLIC HEALTH Gender Identity Not on file Sexual Orientation Not on file COVID-19 Exposure Response Date Recorded In the last 10 days, have yo u been in contact with someone who was confirmed or suspected to have Coronavirus/COVID-19? No / Unsure 05/23/2022 1:49 PM TEACHER PUBLIC HEALTH documented as of this encounter Plan of Treatment Not on file documented as of this encounter Results * EMG (06/18/2022 12:00 AM TEACHER PUBLIC HEALTH) 06/18/2022 Jessica Navarro APRN, CNP NEUROLOGY ORDERABLES V2 F inal Result SCAN documented in this encounter Visit Diagnoses Diagnosis Anesthesia of skin- Primary Disturbance of skin sensation documented in this encounter Care Teams Brim Stretching Machine Operator Relationship Specialty Start Date End Date Jessica Navarro APRN, CNP [address] [address] PCP - General Family Medicine 01/16/18 Jessica Navarro APRN, CNP [address] [place] [address] Family Medicine 01/16/18 documented as of this encounter
--- OUTSIDE RECORDS SUMMARY | 2024-04-14 18:53 | XMS_ITS | Encounter Summary ---
Author Organization [facility] Care Team Providers Care Jewish Thought Professor Name Role Phone Jessica Navarro APRN, CNP Primary Care Provider [phone] Jessica Navarro APRN, CNP Unavailable [phone] Encounter Details Date Type Department Care Team [...] on file Legal Sex Female 11:35 AM TOURIST GUIDE Gender Identity Not on file Sexual Orientation Not on file COVID-19 Exposure Response Date Recorded In the last month, have you been in contact with someone who was confirmed or suspected to have Coronavirus / COVID-19? No / Unsure 05/15/2021 10:01 AM TOURIST GUIDE documented as of this encounter Plan of Treatment Not on file documented as of this encounter Visit Diagnoses Not on filedocumented in this encounter Care Teams Jewish Thought Professor Relationship Specialty Start Date End Date Jessica Navarro APRN, CNP [address] [place] [address] PCP - General Family Medicine 01/16/18 Jessica Navarro APRN, CNP [address] [place] [address] Family Medicine 01/16/18 documented as of this encounter
--- OUTSIDE RECORDS SUMMARY | 2024-04-14 18:54 | XMS_ITS | Encounter Summary ---
Author Organization [facility] Healthcare Address [address] [place] [address] Care Team Providers Care Wooden Fence Erector Name Role Phone Navarro, Jessica Pinto NP Primary Care Provider + [phone] Ophelia Ashraf MD Unavailable [phone] Reason for Referral * Diagnostic Imaging (Routine) - Closed Specialty Diagnoses / Procedures Referred By Contac t Referred To Contact Diagnoses Pain of upper arm, unspecified laterality Unspecified lump in axillary tail of the right breast Procedures US Breast Right Limited US Breast Right Limited Kostas Hale MD [address] [place] [address] Phone: tel: fax: [address] [address] Referral ID Status Reason Start Date Expiration Date Visits Re quested Visits Authorized [id number] Closed 08/21/2023 09/19/2024 1 1 Reason for Visit * Diagnostic Imaging (Routine) - Closed Specialty Diagnoses / Procedures Referred By Jonas reeves Referred To Contact Diagnoses Pain of upper arm, unspecified laterality Unspecified lump in axillary tail of the right breast Procedures US Breast Right Limited US Breast Right Limited Kostas Hale MD [address] [place] [address] Phone: tel: fax: [address] [address] Referral ID Status Reason Start Date Expiration Date Visits Re quested Visits Authorized [id number] Closed 08/21/2023 09/19/2024 1 1 Encounter Details Date Type Department Care Team (Latest Contact Info) Description 10/05/2023 9:25 AM CDT - 10/05/2023 11:59 PM CDT Hospital Encounter [facility] 1 [place] [address] Pain of upper arm, unspecified laterality; Unspecified [...] 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 Change every [...] breast documented in this encounter Care Teams Wooden Fence Erector Relationship Specialty Start Date End Date Jessica Navarro NP [address] [place] [address] PCP - General 08/23/20 Ophelia Ashraf MD [address] [facility] [address] [place] [address] Consulting Physician Endocrinology 04/15/23 documented as of this encounter
--- OUTSIDE RECORDS SUMMARY | 2024-04-14 18:54 | XMS_ITS | Encounter Summary ---
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 * Back Sprain/Strain (German) * Acute Rash (AfterCare(R) Instructions(ER/ED)) (German) documented in this encounter Medications at Time [...] complication, without long-term current use of insulin ([facility] ([facility]) 1 Device continuously . Change every 10 [...] complaining of itching. She has been using pjms-blx-wqecuzv hydrocortisone cream with no relief. She denies [...] Navarro NP [address] [facility] [address] In 3 days for re-evaluation and [...] 1 mg tablet Generic drug: PNV with eubwkvc-zcjh-UG Take 1 tablet by mouth daily medroxyPROGESTERone [...] Your Medications These medications were sent to [place] [address] IN [place], [place] - [address] [place] [address] famotidine 20 mg tablet hydrocortisone 2.5 % ointment hydrOXYzine 25 mg tablet ketorolac 10 mg tablet methocarbamoL 500 mg tablet This examination was transcribed using the invi voice recognition system without human tissue technologist. In an effort to expedite patient care, this report has not been adjusted for typographical, grammatical, and syntax by a trained medical records clerk. Nery Martinez PA 11/04/23 1453 Cosigned by [...] tendency for uric acid stone formation. Source: [facility] [employer] Current Interpretive Data was last revised on [...] ERABLES Final Result ILDA BLANE ([place]) 1 [facility] Department [place] [address] documented in this encounter Visit Diagnoses Diagnosis [...] RN) documented in this encounter Care Teams Cremator Relationship Specialty Start Date End Date Jessica Navarro NP [address] [place], [place] [id number] PCP - General 08/23/20 Ophelia Ashraf MD [address] [facility] [address] [place] [address] Consulting Physician Endocrinology 04/15/23 documented as of this encounter
--- OUTSIDE RECORDS SUMMARY | 2024-04-14 18:54 | XMS_ITS | Encounter Summary ---
Author Organization [facility] Healthcare Address [address] [place] [address] Care Team Providers Care Packaging Assembler Name Role Phone Melanie, Jessica Pinto NP Primary Care Provider [phone] Ophelia Ashraf MD Unavailable [phone] Reason for Visit * Reason Comments Diabetes Type 2 Encounter Details Date Type Department Care Team (Late st Contact Info) Description 02/25/2024 7:30 AM CDT Office Visit [facility] Medical Group Diabetes Endocrine Care at [address] [address] Malini Cummins, ANA LILIA [address] [place] [address] Type 2 diabetes mellitus without complication, [...] 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 You may receive a phone call or [...] once per week. To see the Dietitian, Insurance Agency Sales Manager or attend Diabetes Class, Schedule an appointment by calling Centralized Scheduling at [phone]. Exercise: Try moving at least a total [...] complication, without long-term current use of insulin ([facility]) ([facility]) (Primary) Assessment & Plan: This is a [...] taking a multivitamin with vitamin-D in it jydq-kph-afyvtih. Encouraged to take at least 1000 mg [...] without complication, without long-term current useof insulin ([facility]) ([facility]) This is a chronic condition which is [...] complication, without long-term current use of insulin ([facility]) ([facility]) POCT GLUCOSE Routine 02/25/2024 7:39 AM CDT Type 2 diabetes mellitus without complication, without long-term current use of insulin ([facility]) ([facility]) documented in this encounter Results * POCT hemoglobin A1c (02/25/2024 7:40 AM CDT) Hemoglobin A1C, POC 6.6 4.0 - 5.6 % Blood 02/25/2024 7:40 AM CDT Malini Cummins CHARGE ATTENDANT POINT OF CARE TEST ORDERABLES F inal Result * POCT glucose (02/25/2024 7:39 AM CDT) Glucose Blood, POC 170 mg/dL Blood 02/25/2024 7:39 AM CDT us Malini Cummins NP POINT OF CARE TEST ORDERABLES F inal Result documented in this encounter Visit Diagnoses Diagnosis Type 2 diabetes mellitus without complication, without long-term current use of insulin ([facility]) ([facility])- Primary Class 1 obesity due to excess [...] complication, without long-term current use of insulin ([facility]) ([facility]) 1 Device continuously . Change every [...] documented as of this encounter Care Teams Packaging Assembler Relationship Specialty Start Date End Date Jessica Navarro NP [address] [place] [address] PCP - General 08/23/20 Ophelia Ashraf MD [address] [facility] [place] [address] Consulting Physician Endocrinology 04/15/23 documented as of this encounter
--- OUTSIDE RECORDS SUMMARY | 2024-04-14 18:54 | XMS_ITS | Encounter Summary ---
Author Organization [facility] Healthcare Address [address] [place] [address] Care Team Providers Care It Associate Name Role Phone Melanie, Jessica Pinto NP Primary Care Provider + [phone] Ophelia Ashraf MD Unavailable [phone] Reason for Visit * Reason Onset Date Comments PMC Preprocedure 09/28/2023 Encounter Details Date Type Department Care Team (Late st Contact Info) Description 09/28/2023 Telephone [facility] [address] [facility] [address] [place], [place] [id number] Broderick [address] MD [address] [facility] [address] [facility] [phone] [place], [place] [id number] PMC Preprocedure Social History Tobacco Use Types [...] 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 Not on file documented as of this encounter Miscellaneous Notes * Telephone Encounter - Raiza Drummond RN - 09/28/2023 10:25 AM CDT Pre procedure instructions sent through [employer] documented in this encounter Plan of Treatment [...] on filedocumented in this encounter Care Teams It Associate Relationship Specialty Start Date End Date Jessica Navarro NP [address] [place] [address] PCP - General 08/23/20 Ophelia Ashraf MD [address] [facility] [address] [place] [address] Consulting Physician Endocrinology 04/15/23 documented as of this encounter
--- OUTSIDE RECORDS SUMMARY | 2024-04-14 18:54 | XMS_ITS | Clinical Summary ---
Author Organization [facility] Address [address] [place] [address] Care Team Providers Care Control Tower Operator Name Role Phone Jessica Navarro NP Primary Care Provider + [phone] Ophelia Ashraf MD Unavailable [phone] Allergies Active Allergy Reactions Criticality Noted [...] cycle Assessment & Plan (05/28/2023 9:49 AM COLLECTOR OF PORT): -Ordered AMH and FSH -Pending results, discussed [...] (03/29/2020): Added automatically from request for surgery [id number] ELLI (obstructive sleep apnea) 03/01/2019 Tobacco use [...] complication, without long-term current use of insulin ([facility]) 02/05/2018 Assessment & Plan (02/25/2024 7:57 AM [...] get Assessment & Plan (04/14/2023 11:13 AM COLLECTOR OF PORT): Diagnosed in 2019 Started insulin in 2021 [...] She will follow up with high school guidance counselor if she gets . Assessment & Plan [...] basis. Assessment & Plan (06/02/2022 2:12 PM COLLECTOR OF PORT): Diagnosed in 2019 Started insulin in 2021 [...] basis. Assessment & Plan (05/12/2022 2:11 PM COLLECTOR OF PORT): Diagnosed in 2019 Started insulin in 2021 [...] Description 02/25/2024 7:30 AM CDT Office Visit [facility]ocrine [facility] at [address] [phone] Malini Cummins, ANA LILIA Type 2 diabetes mellitus without complication, without long-term current use of insulin (CMS/HCC) (HCC) (Primary Dx); Class 1 obesity due to excess calories with serious comorbidity and body mass index (BMI) of 33.0 to 33.9 in adult 02/04/2024 2:30 PM CDT Office Visit [facility]stetrics [facility] Gynecology Clinic [address] [place] [address] Health 3rd Floor [address] [place] [address] Georgia Leonard MD Infertility counseling [...] 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[facility] [employer]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 N ot on file [...] complication, without long-term current use of insulin ([facility]/HCC) ([facility]) POCT GLUCOSE Routine 02/25/2024 7:39 AM CDT Type 2 diabetes mellitus without complication, without long-term current use of insulin (CMS/HCC) ([facility]) POCT HCG, URINE Routine 02/04/2024 3:00 PM CDT Infertility counseling EGFR Routine 07/14/2023 8:54 AM CDT Type 2 diabetes mellitus with hyperglycemia, with long-term current use of insulin (CMS/[facility]) ([facility]) LIPID PANEL Routine 07/14/2023 8:54 AM CDT Type 2 diabetes mellitus with hyperglycemia, with long-term current use of insulin (CMS/[facility]) ([facility]) ALBUMIN CREATININE RATIO, URINE Routine 07/14/2023 8:54 AM CDT Type 2 diabetes mellitus with hyperglycemia, with long-term current use of insulin (CMS/[facility]) ([facility]) DIABETIC EYE EXAM Routine 05/26/2023 from Last [...] Final Resu lt ILDA ARGUELLES (LAMINE) 1 [facility] Department [place] [address] * Albumin Creatinine Ratio, Urine (07/14/2023 8:54 AM CDT) Albumin Ur 20.2 mg/L Comment: Interpretive Data No reference range established. Current interpretive data was last revised 2018. Testing performed by: [facility], [address] [place] [address]., [id number] Creatinine Ur 437.5 mg/dL ILDA ARGUELLES (LAMINE) Comment: Interpretive Data No reference range established. Current interpretive data was last revised 2018. Testing performed by: [facility], [address] [place] [address]., [address] Albumin Creatinine Ratio, Ur 5 1 - 29 mg/g ILDA ARGUELLES (LAMINE) Comment:Testing performed by : [address] [address] Urine 07/14/2023 8:54 AM CDT 07/14/2023 3:58 PM CDT us Malini Cummins CRACKING UNIT OPERATOR LAB URINE ORDERABLES Final Resu lt Performing Organization Address [facility] de Phone Number ILDA ARGUELLES (LAMINE) 1 [facility] Department [place] [employer] [place] [address] * (ABNORMAL) Lipid panel (07/14/2023 8:54 AM [...] Final Resu lt ILDA ARGUELLES (LAMINE 1 [facility] [place] [address] * Diabetic Eye Exam (05/26/2023) us Historical Provider MD HEALTH MAINTENANCE Final Result from Last 3 Months or Most Recently Relevant to Health Maintenance Insurance [facility] [address] [address] IDPA IDPA Care Teams Control Tower Operator Relationship Specialty Start Date End Date Jessica Navarro NP [address] [place] [address] PCP - General 08/23/20 Ophelia Ashraf MD [address] [facility] [address] [place] [address] Consulting Physician Endocrinology 04/15/23
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
--- OUTSIDE RECORDS SUMMARY | 2024-04-14 18:54 | XMS_ITS | Encounter Summary ---
Author Organization [facility] Healthcare Address [address] [place] [address] Care Team Providers Care Structural Drafter Name Role Phone Melanie, Jessica Pinto NP Primary Care Provider [phone] Ophelia Ashraf MD Unavailable [phone] Reason for Visit * Reason Comments Sore Throat Encounter Details Date Type Department Care Team (Late st Contact Info) Description 12/28/2023 1:04 PM CDT - 12/28/2023 2:35 PM CDT Emergency 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 * Pharyngitis, Strep (Confirmed) (Micronesian) documented in this encounter Medications at Time [...] by mouth daily 30 tablet 05/13/2023 4 Optony G7 Sensor deviceIndication s:Type 2 diabetes mellitus without complication, without long-term current use of insulin (CMS/[facility]) ([facility]) 1 Device continuously . Change [...] oriented to person, place, and time. Procedures [facility] Labs Reviewed STREPTOCOCCUS GROUP A PCR - Abnormal Result Value Strep A DNA Detected (*) No orders to display BP 147/74 (BP Location: Right arm, Patient Position: Sitting) Pulse 120 Temp 36.7 ??C (98.1 ??F) (Oral) Resp 20 Ht 160 cm (5' 3 ) Wt 81.6 kg (180 lb) LMP 12/09/2023 SpO2 100% BMI 31.89 kg/m?? [facility] Patient complains of sore throat that started [...] By: Ricardo Mcgrath NP Impression: Strep pharyngitis Ricardo Mcgrath NP 12/28/23 1430 Cosigned by Ankit [...] Comment: This test is performed using the [employer] Xpert Group A Streptococcal Assay. This is [...] by the performing laboratory. Testing performed by: [facility], [address] [place] [address] Throat 12/28/2023 12:4 8 PM CDT 12/28/2023 12:55 PM CDT Ankit Worthington MD LAB MICROBIOLOGY - GENERAL ORD ERABLES Final Result ILDA [address] [address] Department [place] [address] documented in this encounter Visit [...] RN) documented in this encounter Care Teams Structural Drafter Relationship Specialty Start Date End Date Jessica Navarro NP [address] [place] [address] PCP - General 08/23/20 Ophelia Ashraf MD [address] [place] [address] DR [address] [place] [address] Consulting Physician Endocrinology 04/15/23 documented as of this encounter
--- OUTSIDE RECORDS SUMMARY | 2024-04-14 18:54 | XMS_ITS | Encounter Summary ---
Author Organization [facility] Healthcare Address [address] [place] [address] Care Team Providers Care Senior Technical Writer Name Role Phone Melanie, Jessica Pinto NP Primary Care Provider + [phone] Ophelia Ashraf MD Unavailable [phone] Reason for Referral * Consultation (Routine) - Pending Review Specialty Diagnoses / Procedures Referred By Contac t Referred To Contact Physical Therapy Diagnoses Chronic bilateral low back pain with right-sided sciatica Arnold Sharp MD PhD Phone: tel: fax: [facility] (All Locations) Referral ID Status Reason Start Date Expiration Date Visits Requested Visits Authorized Pending Review Evaluate and Treat 09/30/2023 10/29/2024 24 24 Question Answer PTRFR PT Evaluate and Treat Therapy options discussed with patient? Yes Location provided for therapy services is: Patient requested/Patient preferred Please select the performing region: [facility] (All Locations) [167] # of visits: 24 Comments Please evaluate and provide treatment (1: Therapeutic exercise, 2: posture corrections, 3:patterns during functional activities, and 4: conditioning activities) and home exercise program for chronic low back pain. * Diagnostic Imaging (Routine) - Closed Specialty Diagnoses / Procedures Referred By Contac t Referred To Contact Diagnoses Lumbar radiculopathy Procedures Imaging Lumbar/Caudal Epidural Steroid INJ ([id number]) Arnold Sharp MD PhD Phone: tel: fax: [address] [address] Referral ID Status Reason Start Date Expiration Date Visits Re quested Visits Authorized [id number] Closed 09/30/2023 12/29/2023 1 1 Reason for Visit * Reason Comments Back Pain MID BACK ALL THE WAY TO HER TOES ON THE RT SIDE * Diagnostic Imaging (Routine) - Closed Specialty Diagnoses / Procedures Referred By Contac t Referred To Contact Diagnoses Lumbar radiculopathy Procedures Imaging Lumbar/Caudal Epidural Steroid INJ ([id number]) Arnold Sharp MD PhD Phone: tel:[phone] fax: [address] [address] Referral ID Status Reason Start Date Expiration Date Visits Re quested Visits Authorized [id number] Closed 09/30/2023 12/29/2023 1 1 Encounter Details Date Type Department Care Team (Latest Contact Info) Description 09/30/2023 9:44 AM CDT - 09/30/2023 11:59 PM CDT Hospital Encounter [facility] [address] [facility] [address] [place] [address] Broderick Lucero MD [address] 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 [facility] ([facility]) DISCHARGE INSTRUCTIONS MEDICATIONS: [x] Continue your current home medications Start: [x] Notify your pharmacy for refill(s) 7 days before you are out of your medication. [] Opioid (Narcotic) Agreement signed and patient received copy. [] Side Effects of Opioid Medications given to patient PROCEDURE at today's visit: Right Lumbar Epidural Steroid Injection (L5-S1) DIET: [x] Resume normal diet [] See [facility] Post Discharge Procedure Information Sheet ACTIVITY: [] Resume normal activity [x] See [facility] Post Discharge Procedure Information Sheet REFERRALS: Physical Therapy [] [facility] Physical Therapy ([phone]) [] GMI ([employer]ag[employer]) [] [facility] ([phone]) Option 1 [] GMI (Graded Motor Imagery) [] [facility] ([phone]) [] Other: Behavior Medicine [] Pain Psychologist, [facility] Pain Psychology Please call to schedule appointment [phone] or [phone] Diagnostic Test(s): May get Radiographs performed in Radiation/X-Ray 6th floor, [address]. [] Please call to schedule MRI or CT scan at [phone] [] Please call to schedule EMG at [phone] EDUCATION provided on the following: [] Spinal Cord Stimulator Education and DVD. Vendor: FOLLOW UP APPOINTMENTS: [] Return as needed [] Follow up appointment: We will contact you the next day to obtain: [] An update on your condition [] Your Pain diary scores [] Procedure at your next visit : INSTRUCTIONS before your next procedure: [] See [facility] Pre-Procedure Information Sheet [] Do not eat or drink for six (6) hours before the time/date of the procedure. [] Inquire with your prescribing provider if ok to hold blood thinner for ( ) days before procedure. [] Blood work required 2 hours before procedure: [] Craft Manager needed for next procedure [] Pre Procedure instructions will be sent through [employer] or by phone two working days prior to procedure. *Need help with [employer]? Call [phone]. Patient provided information and repeated back with understanding. If you need to reach us: For any questions about your procedure, please call the Pain Management Center [phone] (M-F) (8am-4pm) If you need urgent attention after 5 pm and weekends: Call the [facility] Metal Burrer at [phone] and ask for the Pain Service doctor application systems engineer. documented in this encounter Medications at Time [...] by mouth daily 30 tablet 05/13/2023 4 [facility] G7 Sensor deviceIndication s:Type 2 diabetes mellitus without complication, without long-term current use of insulin (CMS/HCC) ([facility]) 1 Device continuously . [...] 1995 Today's Date: 09/30/2023 PCP: Jessica Navarro MECHANIC FIELD SERVICE Referring: Arnold Sharp MD P* Chief Complaint [...] Amitriptyline (Elavil) [] Levetiracetam (Keppra) [] Hydrocodone/APAP (Deforest) [] Desipramine (Norpramin) [] Valproate (Depakote) [] [...] No. She is in contact with a code enforcement officer because of pain or injury: No. Significant past medical history:T2D, PCOS, Tobacco use disorder on nicotine patch, MDD/LOIS/bipolar/PTSD, right carpal tunnel and dequervain'stensynovitis s/p release, ELLI, obesity, RA. Social Hx: work as [employer], requires heavy lifting Today Date: 09/30/2023 She returns to the [facility] for Her low back pain. Pain Score: [...] Ankle swelling Anxiety Anxiety Asthma Bipolar disorder ([facility]) Depression Depression Diabetes mellitus (HCC) Diarrhea Fatigue [...] tablet OneTouch Delica Plus Lancet 33 gauge [facility] OneTouch Ultra Test strip QUEtiapine (SEROquel) [...] Clinical Fellow, Pain Management Department of Anesthesiology [facility] in [place] 09/30/23 Cosigned by Broderick Lucero MD at [...] Clinical Fellow, Pain Management Department of Anesthesiology [facility] 09/30/23 TEACHING ATTESTATION : I was present [...] Results * Imaging Lumbar/Caudal Epidural Steroid INJ ([id number]) (09/30/2023 11:06 AM CDT) Narrative RAD_PACS_[facility] - [...] 10/08/2023 documented in this encounter Care Teams Senior Technical Writer Relationship Specialty Start Date End Date Jessica Navarro NP [address] [facility] [address] [place] [address] PCP - General 08/23/20 Ophelia Ashraf MD [address] [facility] [address] [place] [address] Consulting Physician Endocrinology 04/15/23 documented as of this encounter
--- OUTSIDE RECORDS SUMMARY | 2024-04-14 18:54 | XMS_ITS | Encounter Summary ---
Author Organization [facility] Healthcare Address [address] [place] [address] Care Team Providers Care Rn Recovery Name Role Phone Jessica Navarro NP Primary Care Provider + [phone] Ophelia Ashraf MD Unavailable [phone] Reason for Visit * Reason Comments follow up Encounter Details Date Type Department Care Team (Late st Contact Info) Description 02/04/2024 2:30 PM CDT Office Visit Obstetrics and Gynecology Clinic [address] 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 RETURNED TELEPHONE EQUIPMENT APPRAISER History Menses: regular, every 30 days, lasting [...] counseling documented in this encounter Care Teams Rn Recovery Relationship Specialty Start Date End Date Jessica Navarro NP [address] [place] [address] PCP - General 08/23/20 Ophelia Ashraf MD [address] [facility] [address] [place] [address] Consulting Physician Endocrinology 04/15/23 documented as of this encounter
--- OUTSIDE RECORDS SUMMARY | 2024-04-14 18:54 | XMS_ITS | Encounter Summary ---
Author Organization [facility] Healthcare Address [address] [place] [address] Care Team Providers Care Design Printing Machine Setter Name Role Phone Melanie, Jessica Pinto NP Primary Care Provider [phone] Ophelia Ashraf MD Unavailable [phone] Reason for Referral * Consultation (Routine) - Closed Specialty Diagnoses / Procedures Referred By Contact Referred To Contact Reproductive Endocrinology and Infertility Diagnoses Infertility counseling David Reyes MD [address] [facility] [address] [place] [address] Phone: tel: fax: [facility] (All Locations) Referral ID Status Reason Start Date Expiration Date V isits Requested Visits Authorized [id number] Closed Specialty Services Required 11/18/2023 12/17/2024 1 1 Question Answer Please select the performing region: [facility] (All Locations) [167] # of visits: 1 Comments 28 year old with PCOS, several years trying to conceive unassisted. No positive test with three cycles of letrozole. 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
--- OUTSIDE RECORDS SUMMARY | 2024-04-14 18:54 | XMS_ITS | Encounter Summary ---
Author Organization 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
--- OUTSIDE RECORDS SUMMARY | 2024-04-14 18:54 | XMS_ITS | Encounter Summary ---
Author Organization [facility] Healthcare Address [address] [place] [address] Care Team Providers Care Commissary Manager Name Role Phone Melanie, Jessica Pinto NP Primary Care Provider + [phone] Ophelia Ashraf MD Unavailable [phone] Reason for Referral * Diagnostic Imaging (Routine) - Closed Specialty Diagnoses / Procedures Referred By Jonas reeves Referred To Contact Diagnoses Lumbar radiculopathy Procedures Imaging Lumbar/Caudal Epidural Steroid INJ (44441) Guevara Sharp MD PhD Phone: tel: fax: [address] [address] Referral ID Status Reason Start Date Expiration Date Visits Re quested Visits Authorized [id number] Closed 09/30/2023 12/29/2023 1 1 Encounter Details Date Type Department Care Team (Late st Contact Info) Description 09/14/2023 Telephone [facility] [address] [facility] [address] [place] [address] Guevara Sharp MD PhD [address] [place] [address] Social History Tobacco Use Types [...] 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
--- OUTSIDE RECORDS SUMMARY | 2024-04-14 18:54 | XMS_ITS | Encounter Summary ---
Author Organization [facility] Healthcare Address [address] [place] [address] Care Team Providers Care Fabricator Artificial Breast Name Role Phone Jessica Navarro NP Primary Care Provider + [phone] Ophelia Ashraf MD Unavailable [phone] Reason for Visit * Reason Comments Exposure to STD Encounter Details Date Type Department Care Team (Late st Contact Info) Description 12/20/2023 11:12 AM CDT - 12/20/2023 12:44 PM CDT Emergency [facility] Emergency Department [address] [place] [address] Concern about sexually transmitted infection [...] Industry Job Start Date Job 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 * Sexually Transmitted Diseases (AfterCare(R) Instructions(ER/ED)) ([place] Zealander) documented in this encounter Medications at Time [...] by mouth daily 30 tablet 05/13/2023 4 #waywire G7 Sensor deviceIndications :Type 2 diabetes mellitus without complication, without long-term current use of insulin ([facility]) ([facility]) 1 Device continuously . Change every 10 [...] tablet OneTouch Delica Plus Lancet 33 gauge [facility] OneTouch Ultra Test strip QUEtiapine (SEROquel) 400 [...] MDM Labs Reviewed POCT RAPID HIV ANTIBODY [facility] SCREENING-MILAGROS ELIGIBLE - Normal Result Value Rapid HIV, POC Negative Lot Number [id number] QC Control Line Acceptable N. GONORRHOEAE/C. TRACHOMATIS [...] stable This examination was transcribed using the MaulSoup voice recognition system without human regulatory technician. In an effort to expedite patient care, this report has not been adjusted for typographical, grammatical, and syntax by a trained medical editor. Close outpatient follow-up with a low threshold [...] Rapid HIV, POC Negative Negative Lot Number [id number] QC Control Line Acceptable Blood 12/20/2023 11:5 [...] this test have been verified by the [facility]. The performance characteristics of this test have not been evaluated in individuals less than 14 years of age. Current Interpretive Data last revised 2023. Urine (None) 12/20/2023 11:3 9 AM CDT 12/20/2023 4:14 PM CDT us Elizabeth Feliz MD LAB MICROBIOLOGY - GENERAL ORDE [facility] Final Result ILDA FIERRO [address] Department [place] [address] documented in this encounter Visit Diagnoses Diagnosis [...] RN) documented in this encounter Care Teams Fabricator Artificial Breast Relationship Specialty Start Date End Date Jessica Navarro NP [address] [place] [address] PCP - General 08/23/20 Ophelia Ashraf MD [address] [facility] [address] [place] [address] Consulting Physician Endocrinology 04/15/23 documented as of this encounter
--- OUTSIDE RECORDS SUMMARY | 2024-04-14 18:54 | XMS_ITS | Referral Summary ---
Author Organization [facility] Address [address] [place] [address] Care Team Providers Care Single Stayer Operator Name Role Phone Melanie, Jessica Pinto NP Primary Care Provider + [phone] Ophelia Ashraf MD Unavailable [phone] Encounters Date Type Department Care Team Description 02/25/2024 7:30 AM CDT Office Visit [facility] Diabetes Endocrine Care at [address] [place] [address] Malini Cummins NP Type 2 diabetes mellitus without complication, without long-term current use of insulin (CMS/HCC) (HCC) (Primary Dx); Class 1 obesity due to excess calories with serious comorbidity and body mass index (BMI) of 33.0 to 33.9 in adult 02/04/2024 2:30 PM CDT Office Visit [facility] [address] [place] [address] Outpatient Health 3rd Floor [address] [place] [address] Georgia Leonard MD Infertility counseling [...] cycle Assessment & Plan (05/28/2023 9:49 AM SENIOR COMPLIANCE OFFICER): -Ordered AMH and FSH -Pending results, discussed [...] (03/29/2020): Added automatically from request for surgery [id number] ELLI (obstructive sleep apnea) 03/01/2019 Tobacco use [...] without long-term current use of insulin ([facility]) 02/05/2018 Assessment & Plan (02/25/2024 [...] get Assessment & Plan (04/14/2023 11:13 AM SENIOR COMPLIANCE OFFICER): Diagnosed in 2019 Started insulin in 2021 [...] basis. She will follow up with high lift driver if she gets . Assessment & Plan [...] basis. Assessment & Plan (06/02/2022 2:12 PM SENIOR COMPLIANCE OFFICER): Diagnosed in 2019 Started insulin in 2021 [...] basis. 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 N ot on file [...] without long-term current use of insulin ([facility]) ([facility]) POCT GLUCOSE Routine 02/25/2024 7:39 AM CDT Type 2 diabetes mellitus without complication, without long-term current use of insulin ([facility]) ([facility]) POCT HCG, URINE Routine 02/04/2024 3:00 PM CDT Infertility counseling EGFR Routine 07/14/2023 8:54 AM CDT Type 2 diabetes mellitus with hyperglycemia, with long-term current use of insulin ([facility]) ([facility]) LIPID PANEL Routine 07/14/2023 8:54 AM CDT Type 2 diabetes mellitus with hyperglycemia, with long-term current use of insulin ([facility]) ([facility]) ALBUMIN CREATININE RATIO, URINE Routine 07/14/2023 8:54 AM CDT Type 2 diabetes mellitus with hyperglycemia, with long-term current use of insulin ([facility]) ([facility]) DIABETIC EYE EXAM Routine 05/26/2023 [...] BLOOD ORDERABLES Final Resu lt ILDA ARGUELLES (KENT) 1 [facility] Department [place] [address] * Albumin Creatinine Ratio, Urine (07/14/2023 8:54 AM CDT) Albumin Ur 20.2 mg/L Comment: Interpretive Data No reference range established. Current interpretive data was last revised 2018. Testing performed by: [facility], [address] [place] [address], [place]., [address] Creatinine Ur 437.5 mg/dL ILDA ARGUELLES (LAMINE) Comment: Interpretive Data No reference range established. Current interpretive data was last revised 2018. Testing performed by: [facility], [address] [place] [address]., [address] Albumin Creatinine Ratio, Ur 5 1 - 29 mg/g ILDA ARGUELLES (LAMINE) Comment:Testing performed by : [facility], [address] [place] [address]., [address] Urine 07/14/2023 8:54 AM CDT 07/14/2023 3:58 PM CDT us Malini Cummins NP LAB URINE ORDERABLES Final Resu lt ILDA ARGUELLES (LAMINE) 1 [facility] Department [place] [address] * (ABNORMAL) Lipid panel (07/14/2023 8:54 AM [...] Final Resu lt ILDA ARGUELLES (LAMINE) 1 [facility] Department [place] [address] * Diabetic Eye Exam (05/26/2023) us Historical Provider HEALTH MAINTENANCE Final Result from Last 3 Months or Most Recently Relevant to Health Maintenance [place] [address] [place] [address] [facility] [place] [address] IDPA IDIL Care Teams Single Stayer Operator Relationship Specialty Start Date End Date Jessica Navarro NP [address] [place] [address] PCP - General 08/23/20 Ophelia Ashraf MD [address] [facility] [address] [place] [address] Consulting Physician Endocrinology 04/15/23
--- OUTSIDE RECORDS SUMMARY | 2024-04-14 18:54 | XMS_ITS | Encounter Summary ---
Author Organization 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
--- OUTSIDE RECORDS SUMMARY | 2024-04-14 18:54 | XMS_ITS | Encounter Summary ---
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 [address] [place] [address] Consulting Physician Endocrinology 04/15/23 documented as of this encounter
--- OUTSIDE RECORDS SUMMARY | 2024-04-14 18:54 | XMS_ITS | Encounter Summary ---
Author Organization [facility] Healthcare Address [address] [place] [address] Care Team Providers Care Tube Cutter Name Role Phone Melaine, Jessica Pinto NP Primary Care Provider [phone] Ophelia Ashraf MD Unavailable [phone] Reason for Referral * MRI/CAT/PET Scan (Routine) - Pending Review Specialty Diagnoses / Procedures Referred By Contac t Referred To Contact Radiology Diagnoses Lumbar radiculopathy Procedures MRI Lumbar Spine WO Contrast Arnold Sharp MD PhD Phone: tel: fax: [address] [address] Referral ID Status Reason Start Date Expiration Date V isits Requested Visits Authorized [id number] Pending Review 08/19/2023 09/17/2024 1 1 Reason for Visit * MRI/CAT/PET Scan (Routine) - Pending Review Specialty Diagnoses / Procedures Referred By Contac t Referred To Contact Radiology Diagnoses Lumbar radiculopathy Procedures MRI Lumbar Spine WO Contrast Arnold Sharp MD PhD Phone: tel:[phone] fax: [address] [address] Referral ID Status Reason Start Date Expiration Date V isits Requested Visits Authorized [id number] Pending Review 08/19/2023 09/17/2024 1 1 Encounter Details Date Type Department Care Team (Latest Contact Info) Description 08/27/2023 6:59 PM CDT - 08/27/2023 11:59 PM CDT Hospital Encounter [facility] [address] [place] [id number] Lumbar radiculopathy - Right Discharge Disposition: Discharge [...] 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 Change every [...] unspecified documented in this encounter Care Teams Tube Cutter Relationship Specialty Start Date End Date Navarro, Jessica Pinto NP [address] [place] [address] PCP - General 08/23/20 Ophelia Ashraf MD 4 [facility] [address] [address] Consulting Physician Endocrinology 04/15/23 documented as of this encounter
--- OUTSIDE RECORDS SUMMARY | 2024-04-14 18:54 | XMS_ITS | Encounter Summary ---
Author Organization [facility] Healthcare Address [address] [place] [address] Care Team Providers Care Frontload Driver Name Role Phone Navarro, Jessica Pinto NP Primary Care Provider + [phone] Ophelia Ashraf MD Unavailable [phone] Reason for Referral * Diagnostic Imaging (Routine) - Closed Specialty Diagnoses / Procedures Referred By Jonas reeves Referred To Contact Diagnoses Pain of upper arm, unspecified laterality Unspecified lump in axillary tail of the right breast Procedures Diagnostic Mammogram Bilateral W Anil Diagnostic Mammogram Bilateral W Kostas Jean MD [address] [place] [address] Phone: tel: fax: [address] [address] Referral ID Status Reason Start Date Expiration Date Visits Re quested Visits Authorized [id number] Closed 08/21/2023 09/19/2024 1 1 Reason for Visit * Diagnostic Imaging (Routine) - Closed Specialty Diagnoses / Procedures Referred By Jonas reeves Referred To Contact Diagnoses Pain of upper arm, unspecified laterality Unspecified lump in axillary tail of the right breast Procedures Diagnostic Mammogram Bilateral W Anil Diagnostic Mammogram Bilateral W Kostas Jean MD [address] [place] [address] Phone: tel: fax: [address] [phone] Referral ID Status Reason Start Date Expiration Date Visits Re quested Visits Authorized [id number] Closed 08/21/2023 09/19/2024 1 1 Encounter Details Date Type Department Care Team (Latest Contact Info) Description 10/05/2023 9:25 AM CDT - 10/05/2023 11:59 PM CDT Hospital Encounter [facility] 1 [place] [address] Pain of upper arm, unspecified laterality; Unspecified [...] 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 Change every [...] breast documented in this encounter Care Teams Frontload Driver Relationship Specialty Start Date End Date Jessica Navarro NP [address] [place] [address] PCP - General 08/23/20 Ophelia Ashraf MD 4 [facility] [address] [place] [address] Consulting Physician Endocrinology 04/15/23 documented as of this encounter
--- OUTSIDE RECORDS SUMMARY | 2024-04-14 18:55 | XMS_ITS | Encounter Summary ---
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 Patient to send message on nearby lab for 21D progesterone. All questions answered. David Reyes MD PGY-2, OBGYN GANG WORKER documented in this encounter Plan of Treatment Not on file documented as of this encounter Visit Diagnoses Not on filedocumented in this encounter Additional Health Concerns Infection Onset Date Last Indicated Resolved Time COVID: Recovered Comment:Added based on recent COVID infection. 04/20/2023 05/04/2023 07/19/2023 3:05 AM C DT documented as of this encounter Care Teams Railroad Construction Director Relationship Specialty Start Date End Date Melanie, Jessica Pinto NP [address] [place] [address] PCP - General 08/23/20 Ophelia Ashraf MD [address] [facility] [address] [place] [address] Consulting Physician Endocrinology 04/15/23 documented as of this encounter
--- OUTSIDE RECORDS SUMMARY | 2024-04-14 18:55 | XMS_ITS | Encounter Summary ---
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 Not on file documented as of this encounter Miscellaneous Notes * Telephone Encounter - Caron Bernard MA - 04/17/2023 10:39 AM CST I have called patient back, she was requesting the surgical clearance form be faxed to her primary.I have completed ER GLAZIER * Telephone Encounter - Mirian Call - 04/17/2023 10:26 AM CST Lft msg requesting a call back from the nurse [phone] ER GLAZIER documented in this encounter Plan of Treatment Not on file documented as of this encounter Visit Diagnoses Not on filedocumented in this encounter Additional Health Concerns Infection Onset Date Last Indicated Resolved Time COVID19 04/10/2023 04/10/2023 04/20/2023 3:05 AM MASTER GLAZIER documented as of this encounter Care Teams Charter And Tour Bus Driver Relationship Specialty Start Date End Date Melanie, Jessica Pinto NP [address] [place] [address] PCP - General 08/23/20 Ophelia Ashraf MD [address] [facility] [address] [place] [address] Consulting Physician Endocrinology 04/15/23 documented as of this encounter
--- OUTSIDE RECORDS SUMMARY | 2024-04-14 18:55 | XMS_ITS | Encounter Summary ---
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 David Reyes MD PGY-2, OBGYN WETTER documented in this encounter Plan of Treatment Not on file documented as of this encounter Visit Diagnoses Diagnosis Infertility counseling- Primary documented in this encounter Additional Health Concerns Infection Onset Date Last Indicated Resolved Time COVID: Recovered Comment:Added based on recent COVID infection. 04/20/2023 05/04/2023 07/19/2023 3:05 AM C DT documented as of this encounter Care Teams Office Machines Teacher Relationship Specialty Start Date End Date Jessica Navarro NP [address] [place] [address] PCP - General 08/23/20 Ophelia Ashraf MD [address] [facility] [address] [place] [address] Consulting Physician Endocrinology 04/15/23 documented as of this encounter
--- OUTSIDE RECORDS SUMMARY | 2024-04-14 18:55 | XMS_ITS | Encounter Summary ---
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
--- OUTSIDE RECORDS SUMMARY | 2024-04-14 18:55 | XMS_ITS | Encounter Summary ---
Author Organization [facility] Healthcare Address [address] [place] [address] Care Team Providers Care Finish Production Manager Name Role Phone Jessica Navarro NP Primary Care Provider [phone] Reason for Visit * Reason Comments Diabetes Type 2 Encounter Details Date Type Department Care Team (Late st Contact Info) Description 04/14/2023 9:45 AM PLUMBING ENGINEERING DRAFTSPERSON Office Visit [facility] Medical Group Diabetes Endocrine Care of [address] [place] [phone] Ophelia Ashraf MD [address] [place] [address] [place] [address] Type 2 diabetes mellitus with hyperglycemia, [...] 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 Not on file documented as of this encounter Last Filed Vital Signs Vital Sign Reading Time Taken Comments Blood Pressure 132/70 04/14/2023 9:59 AM PLUMBING ENGINEERING DRAFTSPERSON Pulse - - Temperature - - Respiratory Rate - - Oxygen Saturation - - Inhaled Oxygen Concentration - - Weight 82.7 kg (182 lb 6.4 oz) 04/14/2023 9:59 A M PLUMBING ENGINEERING DRAFTSPERSON Height 160 cm (5' 3 ) 04/14/2023 9:59 AM PLUMBING ENGINEERING DRAFTSPERSON Body Mass Index 32.31 04/14/2023 9:59 AM PLUMBING ENGINEERING DRAFTSPERSON documented in this encounter Progress Notes * [...] hyperglycemia, with long-term current use of insulin (CMS/[facility]) ([facility]) (E11.65, Z79.4) (Primary) Assessment & [...] regular basis. She will follow up with highway administrative engineer if she gets . Orders: - POCT glucose - POCT hemoglobin A1c BING ENGINEERING DRAFTSPERSON documented in this encounter Miscellaneous Notes * Assessment & Plan Note - Ophelia Ashraf MD - 04/14/2023 10:10 AM PLUMBING ENGINEERING DRAFTSPERSON Associated Problem(s): Type 2 diabetes mellitus without complication, without long-term current useof insulin (CMS/HCC) ([facility]) Diagnosed in 2019 Started insulin [...] regular basis. She will follow up with highway administrative engineer if she gets . BING ENGINEERING DRAFTSPERSON BING ENGINEERING DRAFTSPERSON BING ENGINEERING DRAFTSPERSON documented in this encounter Plan of Treatment Not on file documented as of this encounter Procedures Procedure Name Priority Date/Time Associated Diagnosis Comments POCT HEMOGLOBIN A1C Routine 04/14/2023 9 :52 AM PLUMBING ENGINEERING DRAFTSPERSON Type 2 diabetes mellitus with hyperglycemia, with long-term current use of insulin ([facility]) ([facility]) POCT GLUCOSE Routine 04/14/2023 9:52 AM PLUMBING ENGINEERING DRAFTSPERSON Type 2 diabetes mellitus with hyperglycemia, with long-term current use of insulin ([facility]) ([facility]) documented in this encounter Results * POCT hemoglobin A1c (04/14/2023 9:52 AM PLUMBING ENGINEERING DRAFTSPERSON) Hemoglobin A1C, POC 6.8 % Blood 04/14/2023 9:52 AM PLUMBING ENGINEERING DRAFTSPERSON Ophelia Ashraf MD POINT OF CARE TEST ORDERABLES Final Result * POCT glucose (04/14/2023 9:52 AM PLUMBING ENGINEERING DRAFTSPERSON) Glucose Blood, POC 169 mg/dL Blood 04/14/2023 9:52 AM PLUMBING ENGINEERING DRAFTSPERSON Ophelia Ashraf MD POINT OF CARE TEST [...] Time COVID19 04/10/2023 04/10/2023 04/20/2023 3:05 AM PLUMBING ENGINEERING DRAFTSPERSON documented as of this encounter Care Teams Finish Production Manager Relationship Specialty Start Date End Date Jessica Navarro NP [address] [place] [address] PCP - General 08/23/20 documented as of this encounter
--- OUTSIDE RECORDS SUMMARY | 2024-04-14 18:55 | XMS_ITS | Encounter Summary ---
Author Organization [facility] Healthcare Address [address] [place] [address] Care Team Providers Care Payroll Processor Name Role Phone Navarro, Jessica Pinto NP Primary Care Provider [phone] Ophelia Ashraf MD Unavailable [phone] Reason for Referral * Diagnostic Imaging (Routine) - Pending Review Specialty Diagnoses / Procedures Referred By Contac t Referred To Contact Diagnoses Lumbar radiculopathy Procedures Imaging Lumbar/Caudal Epidural Steroid INJ (78672) Arnold Sharp MD PhD Phone: tel:[phone] fax: [address] [phone] Referral ID Status Reason Start Date Expiration Date V isits Requested Visits Authorized [id number] Pending Review 08/19/2023 09/17/2024 1 1 * MRI/CAT/PET Scan (Routine) - Pending Review Specialty Diagnoses / Procedures Referred By Contac t Referred To Contact Radiology Diagnoses Lumbar radiculopathy Procedures MRI Lumbar Spine WO Contrast Arnold Sharp MD PhD Phone: tel:[phone] fax: [address] [phone] Referral ID Status Reason Start Date Expiration Date V isits Requested Visits Authorized [id number] Pending Review 08/19/2023 09/17/2024 1 1 * Consultation (Routine) - Closed Specialty Diagnoses / Procedures Referred By Contac t Referred To Contact Pain Management Diagnoses Sciatica, left side Jessica Navarro NP [address] [place] [address] Phone: tel: fax: [address] [phone] Referral ID Status Reason Start Date Expiration Date V isits Requested Visits Authorized [id number] Closed Specialty Services Required 07/28/2023 08/26/2024 1 1 Question Answer Please select the performing region: [facility] [152] # of visits: 1 Reason for Visit * Reason Comments Back Pain * Consultation (Routine) - Closed Specialty Diagnoses / Procedures Referred By Contac t Referred To Contact Pain Management Diagnoses Sciatica, left side Jessica Navarro NP [address] [place] [address] Phone: tel: fax: [address] [phone] Referral ID Status Reason Start Date Expiration Date V isits Requested Visits Authorized [id number] Closed Specialty Services Required 07/28/2023 08/26/2024 1 1 Encounter Details Date Type Department Care Team (Latest Contact Info) Description 08/19/2023 8:44 AM CDT - 08/19/2023 11:59 PM CDT Hospital Encounter [facility] [address] [place] [address] Advanced Medicine [address] [place] [address] Arnold Sharp MD PhD [address] [place] [address] Lumbar radiculopathy - Right (Primary Dx); Sciatica, [...] 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 [x] Please call to schedule MRI or CT scan at [phone] FOLLOW UP APPOINTMENTS: [x] Procedure at your next visit : Lumbar epidural steroid injection after MRI INSTRUCTIONS before your next procedure: [x] See [facility] Pre-Procedure Information Sheet [x] Email Production Consultant needed for next procedure [x] Pre Procedure instructions will be sent through WangYou or by phone two working days prior to procedure. *Need help with WangYou? Call [phone]. Patient provided information and repeated back with understanding. If you need to reach us: For any questions about your procedure, please call the Pain Management Center [phone] (M-F) (8am-4pm) If you need urgent attention after 5 pm and weekends: Call the [facility] Compensator at [phone] and ask for the Pain Service doctor process control manager. LUMBAR EPIDURAL STEROID INJECTION PAIN MANAGEMENT CENTER [...] x-ray table while you are awake. A emergency medical technician basic will be taking x-rays. A nurse will [...] please call the Pain Management Center at [phone] and ask to speak with a nurse. [...] Amitriptyline (Elavil) [] Levetiracetam (Keppra) [] Hydrocodone/APAP (Rillito) [] Desipramine (Norpramin) [] Valproate (Depakote) [] [...] No. She is in contact with a diesel pile driver operator because of pain or injury: No. Significant past medical history:T2D, PCOS, Tobacco use disorder on nicotine patch, MDD/LOIS/bipolar/PTSD, right carpal tunnel and dequervain'stensynovitis s/p release, ELLI, obesity, RA. 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 Results L-spine MRI 02/04/21 [...] Ankle swelling Anxiety Anxiety Asthma Bipolar disorder ([facility]) Depression Depression Diabetes mellitus ([facility]) Diarrhea Fatigue GERD (gastroesophageal reflux [...] Clinical Fellow, Pain Management Department of Anesthesiology [facility] in [place] 08/19/23 Cosigned by Elaine Obando MD PhD [...] r Schedule Imaging Lumbar/Caudal Epidural Steroid INJ (63054) Imaging Schedule Routine, Read Routine (OP Routine) [...] 09/30/2023 added in this encounter Care Teams Payroll Processor Relationship Specialty Start Date End Date Jessica Navarro NP [address] [place] [address] PCP - General 08/23/20 Ophelia Ashraf MD [address] [facility] [address] [place] [address] Consulting Physician Endocrinology 04/15/23 documented as of this encounter
--- OUTSIDE RECORDS SUMMARY | 2024-04-14 18:55 | XMS_ITS | Encounter Summary ---
Author Organization [facility] Healthcare Address [address] [place] [address] Care Team Providers Care Shell Mold Bonding Machine Operator Name Role Phone Jessica Navarro NP Primary Care Provider + [phone] Ophelia Ashraf MD Unavailable [phone] Reason for Visit * Reason Comments Post-op Encounter Details Date Type Department Care Team (Latest Contact Info) Description 07/03/2023 11:45 AM COFFEE SHOP MANAGER Office Visit [facility] Medical Group Orthopedics and Sports Medicine [address] [place] [address] [address] [place] [address] Topher Dong PA [address] [place] [address] [address] [place] [address] S/P carpal tunnel release (Primary Dx); Aftercare [...] 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 N ot on file Not on file documented as of this encounter Last Filed Vital Signs Vital Sign Reading Time Taken Comments Blood Pressure 119/81 07/03/2023 11:43 AM COFFEE SHOP MANAGER Pulse 72 07/03/2023 11:43 AM COFFEE SHOP MANAGER Temperature - - Respiratory Rate - - Oxygen Saturation - - Inhaled Oxygen Concentration - - Weight 80.3 kg (177 lb) 07/03/2023 11:43 AM COFFEE SHOP MANAGER Height 162.6 cm (5' 4 ) 07/03/2023 11:43 AM COFFEE SHOP MANAGER Body Mass Index 30.38 07/03/2023 11:43 AM COFFEE SHOP MANAGER documented in this encounter Ordered Prescriptions Prescription [...] This will be ordered for her at [facility]. Lastly I placed her into a thumb spica wrist splint to help support her wrist and thumb to allow decreased irritation. I advised her to keep her lifting to minimal, less than 5 lb at this time. Questions were answered. Patient expressed full understanding and agreement of plan. EE SHOP MANAGER documented in this encounter Plan of [...] documented as of this encounter Care Teams Shell Mold Bonding Machine Operator Relationship Specialty Start Date End Date Jessica Navarro NP [address] [place] [address] PCP - General 08/23/20 Ophelia Ashraf MD [address] [facility] [address] [place] [address] Consulting Physician Endocrinology 04/15/23 documented as of this encounter
--- OUTSIDE RECORDS SUMMARY | 2024-04-14 18:55 | XMS_ITS | Encounter Summary ---
Author Organization [facility] Healthcare Address [address] [place] [address] Care Team Providers Care Insurance Office Supervisor Name Role Phone Melanie, Jessica Pinto NP Primary Care Provider [phone] Ophelia Ashraf MD Unavailable [phone] Reason for Referral * Consultation (Routine) - Pending Review Specialty Diagnoses / Procedures Referred By Jonas t Referred To Contact Occupational Therapy Diagnoses S/P carpal tunnel release Leopoldo Quigley PA [address] [place] [address] [address] [place] [address] Phone: tel: fax: Leopoldo Quigley PA [address] [place] [address] [address] [place] [address] Phone: tel: fax: Referral ID Status Reason Start Date Expiration Date Visits Requested Visits Authorized [id number] Pending Review Evaluate and Treat 07/03/2023 08/01/2024 24 9 Question Answer PTRFR OT Evaluate and Treat Therapy options discussed with patient? Yes Location provided for therapy services is: Patient requested/Patient preferred Please select the performing region: [facility] [144] To provider: LEOPOLDO QUIGLEY [[id number]] # of visits: 24 Comments X2 X6 WEEKS OCCUPATIONAL RECREATION MANAGER Encounter Details Date Type Department Care Team (Late st Contact Info) Description 07/03/2023 Telephone [facility] Medical Group Orthopedics and Sports Medicine [address] [place] [address] Leopoldo Quigley PA [address] [facility] [address] [place] [address] Social History Tobacco Use Types Packs/Day Years [...] 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
--- OUTSIDE RECORDS SUMMARY | 2024-04-14 18:55 | XMS_ITS | Encounter Summary ---
Author Organization [facility] Healthcare Address [address] [place] [address] Care Team Providers Care Doggy Daycare Activities Director Name Role Phone Melanie Jessica Pinto NP Primary Care Provider + [phone] Ophelia Ashraf MD Unavailable Reason for Visit * Reason Comments Post-op Encounter Details Date Type Department Care Team (Late st Contact Info) Description 05/27/2023 8:15 AM DIESEL TRUCK CRANE OPERATOR Office Visit [facility] Medical Group Orthopedics and Sports Medicine [address] [place] [address] Carrol Gilmore PA [address] [place] [address] S/P carpal tunnel release (Primary Dx); Orthopedic [...] 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 ot on file Not on file documented as of this encounter Last Filed Vital Signs Vital Sign Reading Time Taken Comments Blood Pressure 124/85 05/27/2023 8:12 AM DIESEL TRUCK CRANE OPERATOR Pulse 70 05/27/2023 8:12 AM DIESEL TRUCK CRANE OPERATOR Temperature - - Respiratory Rate - - Oxygen Saturation - - Inhaled Oxygen Concentration - - Weight 82.1 kg (181 lb) 05/27/2023 8:12 AM DIESEL TRUCK CRANE OPERATOR Height 162.6 cm (5' 4 ) 05/27/2023 8:12 AM DIESEL TRUCK CRANE OPERATOR Body Mass Index 31.07 05/27/2023 8:12 AM DIESEL TRUCK CRANE OPERATOR documented in this encounter Progress Notes * Carrol Gilmore PA - 05/27/2023 8:15 AM CST Images [...] intact. Full AROM of wrist and digits. [employer] Agent strength: 3+/5 Assessment: Diagnosis Plan 1. S/P [...] due to use of voice recognition software. EL TRUCK CRANE OPERATOR documented in this encounter Plan [...] documented as of this encounter Care Teams Doggy Daycare Activities Director Relationship Specialty Start Date End Date Jessica Navarro NP [address] [place] [address] PCP - General 08/23/20 Ophelia Ashraf MD [address] [facility] [address] [place] [address] Consulting Physician Endocrinology 04/15/23 documented as of this encounter
--- OUTSIDE RECORDS SUMMARY | 2024-04-14 18:55 | XMS_ITS | Encounter Summary ---
Author Organization [facility] Healthcare Address [address] [place] [address] Care Team Providers Care Scientific Informatics Project Leader Name Role Phone Jessica Navarro NP Primary Care Provider [phone] Ophelia Ashraf MD Unavailable [phone] Reason for Visit * Reason Comments Diabetes Type 2 Encounter Details Date Type Department Care Team (Late st Contact Info) Description 07/14/2023 8:30 AM CDT Office Visit [facility] Medical Group Diabetes Endocrine Care of [address] [place] [address] Malini Cummins, ANA LILIA [address] [facility] [address] [place] [address] Type 2 diabetes mellitus without complication, without long-term current use of insulin ([facility]) ([facility]) (Primary Dx); Tobacco use disorder; [...] 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 I am thankful you have trusted me with your care, and hope that you received EXCELLENT care today! Please do not hesitate to call if you have any questions or concerns at [phone]. You may receive a phone call or [...] once per week. To see the Dietitian, Log Sorter or attend Diabetes Class, Schedule an appointment by calling Centralized Scheduling at [phone]. Exercise: Try moving at least a total [...] complication, without long-term current use of insulin ([facility]) ([facility]) 1 Device continuously . [...] this encounter Progress Notes * Malini Cummins, MUSSEL OPENER - 07/14/2023 8:30 AM CDT Images from [...] snacks. she monitors blood sugar continuously with [employer] elvia 2. Downloaded blood sugar results were provided. She is requesting to switch to the Dexcom 7 sensor. she denies hypoglycemia. her weight has decreased by 13 lbs. she reports medication compliance is good. She is actively trying to get . She has seen a patient coordinator in [place], she is aware if she gets she [...] complication, without long-term current use of insulin ([facility]) ([facility]) (Primary) Assessment & Plan: This [...] - Lipid panel; Future - Thyroid Function Taylor; Future Tobacco use disorder Assessment & Plan: [...] exercise * Assessment & Plan Note - aMlini Cummins NP - 07/14/2023 8:54 AM CDTAssociated [...] without complication, without long-term current useof insulin ([facility]) ([facility]) This is a chronic condition [...] NP - 07/14/2023 8:33 AM CDTAssociated Problem(s): [employer] elvia 2 continuous glucose monitoring device Continuous [...] complication, without long-term current use of insulin ([facility]) ([facility]) POCT GLUCOSE Routine 07/14/2023 8:33 AM CDT Type 2 diabetes mellitus without complication, without long-term current use of insulin ([facility]) ([facility]) documented in this encounter Results * Thyroid Function Taylor (07/14/2023 8:54 AM CDT) TSH 2.21 0.30 - 4.20 mcIUnit/mL Blood 07/14/2023 8:54 AM CDT 07/14/2023 11:02 AM CDT Malini Cummins NP LAB BLOOD ORDERABLES Final Resu lt ILDA ARGUELLES (LAMINE) 1 [facility] Department [place] [address] * (ABNORMAL) Lipid panel (07/14/2023 8:54 AM [...] Final Resu lt [facility] (LAMINE) 1 [facility] Department [place] [address] * Comprehensive metabolic panel (07/14/2023 8:54 AM [...] 07/14/2023 11:02 AM CDT us Malini Cummins MUSSEL OPENER LAB BLOOD ORDERABLES Final Resu lt [facility] (LAMINE) 1 [facility] Department [place] [address] * Albumin Creatinine Ratio, Urine (07/14/2023 8:54 AM CDT) Albumin Ur 20.2 mg/L Comment: Interpretive Data No reference range established. Current interpretive data was last revised 2018. Testing performed by: [address] [address] Creatinine Ur 437.5 mg/dL [facility] (LAM[facility]) Comment: Interpretive Data No reference range established. Current interpretive data was last revised 2018. Testing performed by: [address] [address] Albumin Creatinine Ratio, Ur 5 1 - 29 mg/g [facility] (LAMINE) Comment:Testing performed by : [address] [address] Urine 07/14/2023 8:54 AM CDT 07/14/2023 3:58 PM CDT us Malini Cummins MUSSEL OPENER LAB URINE ORDERABLES Final Resu lt ILDA ARGUELLES LAMINE 1 [facility] Department of Laboratories [place] [id number] * POCT hemoglobin A1c (07/14/2023 8:34 AM CDT) Hemoglobin A1C, POC 6.0 % Blood 07/14/2023 8:34 AM CDT Malini Cummins MUSSEL OPENER POINT OF CARE TEST ORDERABLES F inal Result * POCT glucose (07/14/2023 8:33 AM CDT) Glucose Blood, POC 137 mg/dL Blood 07/14/2023 8:33 AM CDT Malini Cummins MUSSEL OPENER POINT OF CARE TEST ORDERABLES F inal Result documented in this encounter Visit Diagnoses Diagnosis Type 2 diabetes mellitus without complication, without long-term current use of insulin ([facility]) ([facility])- Primary Tobacco use disorder freestyle elvia 2 continuous glucose monitoring device Class 1 obesity due to excess calories with serious comorbidity and body mass index (BMI) of 30.0 to 30.9 in adult Type 2 diabetes mellitus with hyperglycemia, with long-term current use of insulin ([facility]) documented in this encounter Discontinued Medications Medication Sig Discontinue Reason Start Date End Da te lamoTRIgine (LaMICtal) 25 mg tablet Take 1 tablet (25 mg total) by mouth 2 (two) times a day 07/14/2023 QUEtiapine (SEROquel) 100 mg tablet Take 1 tablet (100 mg total) by mouth nightly 07/14/2023 flash glucose scanning reader ([employer] Elvia 2 [place]) [facility] Use to monitor glucose levels, DX E11.65, [...] documented as of this encounter Care Teams Scientific Informatics Project Leader Relationship Specialty Start Date End Date Jessica Navarro NP [address] [place] [address] PCP - General 08/23/20 Ophelia Ashraf MD [address] [facility] [address] [place] [address] Consulting Physician Endocrinology 04/15/23 documented as of this encounter
--- OUTSIDE RECORDS SUMMARY | 2024-04-14 18:55 | XMS_ITS | Encounter Summary ---
Author Organization [facility] Healthcare Address [address] [place] [address] Care Team Providers Care Metal Tube Cutter Name Role Phone Melanie, Jessica Pinto NP Primary Care Provider + [phone] Ophelia Ashraf MD Unavailable [phone] Encounter Details Date Type Department Care Team (Late st Contact Info) Description 07/14/2023 Orders Only [facility]st[facility] Clinic [address] [facility] 3rd Floor [address] [place] [address] [place] [address] [place] [address] Secondary oligomenorrhea (Primary Dx) Social History [...] 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
--- OUTSIDE RECORDS SUMMARY | 2024-04-14 18:55 | XMS_ITS | Encounter Summary ---
Author Organization [facility] Healthcare Address [address] [place] [address] Care Team Providers Care Customer Pricing Manager Name Role Phone Melanie, Jessica Pinto NP Primary Care Provider + [phone] Ophelia Ashraf MD Unavailable [phone] Reason for Visit * Auth/Cert (Routine) Specialty Diagnoses / Procedures Referred By Jonas reeves Referred To Contact Diagnoses De Quervain's tenosynovitis Carpal tunnel syndrome on right De Quervain's tenosynovitis [M65.4] Carpal tunnel syndrome on right [G56.01] Procedures NM NEUROPLASTY &/TRANSPOS MEDIAN NRV CARPAL TUNNE NM INCISION EXTENSOR TENDON SHEATH WRIST Right carpal tunnel release and dequervain's disease release-hand table Referral ID Status Reason Start Date Expiration Date Visits Re quested Visits Authorized [id number] 1 1 Encounter Details Date Type Department Care Team (Late st Contact Info) Description 05/13/2023 7:47 AM TOOTH GRINDER Anesthesia Event [facility] Operating Room [address] [place] [address] [place] [address] [place] [address] Juana Burns MD [phone] [place], [place] [id number] Anesthesia Record Procedure Summary Procedure Name Responsible [...] Right; Arm; 03/29/24 (Retired LDA, Removed/Completed by [employer] with LDA Utility); 1213 (Retired LDA, Removed/Completed by [employer] with LDA Utility) 05/13/23 0815 by Becky Veras RN 03/29/24 1213 by Discharge Provider, Automatic RETIRED Surgical Site 05/13/23; 0815; Right; Hand; 03/29/24 (Retired LDA, Removed/Completed by [facility] with LDA Utility); 1213 (Retired LDA, Removed/Completed by [facility] with LDA Utility) 05/13/23 0815 by Becky [...] 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 H GRINDER * Anesthesia Procedure Notes - Rivas Lou CRNA - 05/13/2023 8:03 AM TOOTH GRINDER Associated Order(s): Airway Airway Indications for airway management: anesthesia Difficult airway: no Staff: Placed by: DUPLICATOR PUNCH SET UP OPERATOR: Rivas Lou CRNA Emergent airway documentation: Risks and benefits discussed: yes Consent obtained: yes Consent given by: patient Airway prep: Preoxygenated: yes Mask difficulty assessment: 1 - vent by mask Spontaneous ventilation during airway: absent Sedation level during airway: GA Final airway details: Final airway type: supraglottic airway Final supraglottic airway: classic SGA size: 3 Number of attempts: 1 Planned trial extubation: yes H GRINDER * Anesthesia Preprocedure Evaluation - Paul Maya [...] hyperglycemia, with long-term current use of insulin ([facility]) (HCC) 05/12/2022 Benign thyroid cyst 04/14/2022 Acquired [...] History: Diagnosis Date Anxiety Asthma Bipolar disorder ([facility]) Depression Diabetes mellitus ([facility]) GERD (gastroesophageal reflux disease) Rheumatoid arthritis ([facility]) Thyroid disease Past Surgical History: Procedure Laterality [...] Provider, MD Sole flash glucose scanning reader ([employer] Viviane 2 [place]) [facility] -- 05/23/22 -- Ophelia Ashraf MD Use [...] DAILY OneTouch Delica Plus Lancet 33 gauge [facility] -- 03/27/22 -- Sole Reardon MD OneTouch [...] Medication protocol when under care of a DUPLICATOR PUNCH SET UP OPERATOR Planned anesthesia: General Team communication plan: LMA Induction: Induction: intravenous. Postoperative Plan: Postoperative administration opioids intended. No postoperative mechanical ventilation intended. Patient's planned disposition post procedure is Outpatient. Informed Consent: Discussed plan with attending and DUPLICATOR PUNCH SET UP OPERATOR. Anesthesia plan and risks discussed with patient. Consent and Attending signature: I and/or my designee have discussed the anesthesia plan, benefits, possible alternatives, parental presence at time of induction (if indicated), and clinically relevant risks that may include dental injury, unintentional awareness, and/or other complications. The patient and/or parent/legal guardian understand, and agree to proceed. All questions answered. H GRINDER documented in this encounter Plan of Treatment Not on file documented as of this encounter Procedures Procedure Name Priority Date/Time Associated Diagnosis Comments ANESTHESIA INTUBATION Routine 05/13/2023 8:03 AM TOOTH GRINDER documented in this encounter Results * Airway (05/13/2023 8:03 AM TOOTH GRINDER) Narrative Rivas Lou CRNA - 05/13/2023 8:03 AM TOOTH GRINDER Rivas Lou CRNA ? 05/13/2023 ??8:04 AM Airway Indications for airway management: anesthesia Difficult airway: no Staff: Placed by: DUPLICATOR PUNCH SET UP OPERATOR: Rivas Lou CRNA Emergent airway documentation: Risks [...] Prophylaxis, SurgicalIndications:Prophylaxis, Surgical Given 05/13/2023 8:00 AM TOOTH GRINDER 2,000 mg fentaNYL (SUBLIMAZE) preservative free injection intravenous, As needed, Starting on Thu05/13/23 at 0803, Anesthesia Intra-op Given 05/13/2023 8:08 AM TOOTH GRINDER 75 mcg Given 05/13/2023 8:03 AM TOOTH GRINDER 25 mcg lidocaine (XYLOCAINE) 20 mg/mL (2 %) preservative free injection intravenous, As needed, Starting on Thu05/13/23 at 0752, Anesthesia Intra-op Given 05/13/2023 7:52 AM TOOTH GRINDER 100 mg midazolam (VERSED) 1 mg/mL preservative free injection intravenous, Administer over 2 Minutes, As needed, Starting on Thu05/13/23 at 0747, Anesthesia Intra-op Given 05/13/2023 7:47 AM TOOTH GRINDER 2 mg ondansetron (ZOFRAN) injection intravenous, Administer over 2 Minutes, As needed, Starting on Thu05/13/23 at 0812, Anesthesia Intra-op Given 05/13/2023 8:12 AM TOOTH GRINDER 4 mg propofoL (DIPRIVAN) 10 mg/mL IV intravenous, As needed, Starting on Thu05/13/23 at 0752, Anesthesia Intra-op Bolus 05/13/2023 8:11 AM TOOTH GRINDER 50 mg New Bag 05/13/2023 7:52 AM TOOTH GRINDER 200 mg sodium chloride 0.9% infusion 30 mL/hr, intravenous, Continuous, Starting on Thu05/13/23 at 0700, Pre-Op New Bag 05/13/2023 8:10 AM TOOTH GRINDER Rate/Dose Verify 05/13/2023 7:47 AM TOOTH GRINDER 30 mL/h r New Bag 05/13/2023 6:48 AM TOOTH GRINDER 30 mL/hr 30 mL/hr documented in this encounter Additional Health Concerns Infection Onset Date Last Indicated Resolved Time COVID: Recovered Comment:Added based on recent COVID infection. 04/20/2023 05/04/2023 07/19/2023 3:05 AM C DT documented as of this encounter Care Teams Customer Pricing Manager Relationship Specialty Start Date End Date Jessica Navarro NP [address] [place] [address] PCP - General 08/23/20 Ophelia Ashraf MD [address] [facility] [address] [place] [address] Consulting Physician Endocrinology 04/15/23 documented as of this encounter
--- OUTSIDE RECORDS SUMMARY | 2024-04-14 18:55 | XMS_ITS | Encounter Summary ---
Author Organization [facility] Healthcare Address [address] [place] [address] Care Team Providers Care Intern Name Role Phone Melanie, Jessica Pinto NP Primary Care Provider + [phone] Ophelia Ashraf MD Unavailable Reason for Visit * Auth/Cert (Routine) Specialty Diagnoses / Procedures Referred By Jonas reeves Referred To Contact Diagnoses De Quervain's tenosynovitis Carpal tunnel syndrome on right De Quervain's tenosynovitis [M65.4] Carpal tunnel syndrome on right [G56.01] Procedures MS NEUROPLASTY &/TRANSPOS MEDIAN NRV CARPAL TUNNE MS INCISION EXTENSOR TENDON SHEATH WRIST Right carpal tunnel release and dequervain's disease release-hand table Referral ID Status Reason Start Date Expiration Date Visits Re quested Visits Authorized [id number] 1 1 Encounter Details Date Type Department Care Team (Latest Contact Info) Description 05/13/2023 6:12 AM CHIEF WRITER - 05/13/2023 11:18 AM CHIEF WRITER Hospital Encounter [facility] Operating Room 1 [place] [address] Yefri Burgess MD [address] [place] [address] [address] [address] De Quervain's tenosynovitis (Primary Dx); Carpal tunnel [...] Industry Job Start Date Job End Date [facility] [employer] Not on file N ot on file Not on file documented as of this encounter Last Filed Vital Signs Vital Sign Reading Time Taken Comments Blood Pressure 123/81 05/13/2023 11:00 AM CHIEF WRITER Pulse 68 05/13/2023 11:00 AM CHIEF WRITER Temperature 36.2 ??C (97.2 ??F) 05/13/2023 11:[address] Respiratory Rate 18 05/13/2023 11:00 AM CHIEF WRITER Oxygen Saturation 97% 05/13/2023 11:00 AM CHIEF WRITER Inhaled Oxygen Concentration - - Weight 83 kg (182 lb 15.7 oz) 05/13/2023 6:34 AM CHIEF WRITER Height 160 cm (5' 3 ) 05/13/2023 6:34 AM CHIEF WRITER Body Mass Index 32.41 05/13/2023 6:34 AM CHIEF WRITER documented in this encounter Discharge Instructions * Attachments The following attachments cannot be sent through Care Everywhere. * General Anesthesia (Discharge Care) (Hungarian) * Carpal Tunnel Surgery (Discharge Care) (Hungarian) * Ascorbic Acid (Vitamin C) (By mouth) (Hungarian) * Vitamin D (By mouth) (Hungarian) * Hydrocodone/Acetaminophen (By mouth) (Hungarian) * Ondansetron (By mouth, Into the mouth) (Hungarian) * Laxative, Stimulant Combination (By mouth) (Hungarian) documented in this encounter Medications at Time [...] flash glucose scanning reader ([employer] Viviane 2 [place]) [facility] Use to monitor glucose levels, DX E11.65, [...] tunnel release and dequervain's disease release-hand table F WRITER Source Note - Berna Pryor PA - 05/12/2023 8:12 AM CHIEF WRITER Images from the original note were not [...] noted below. Thumb extension: 4/5 Thumb abduction:4/5 Clinical Resource Manager: 4/5 Neurovascular The patient has normal vascular [...] correlation is recommended. POCT hemoglobin A1c Order: [id number] Status: Final result Visible to patient: Yes [...] been medically optimized by their PCP and technical staff engineer and may proceed with acceptable risk. MJ Pérez Cosigned by Yefri Burgess MD at 05/13/2023 7:42 AM CHIEF WRITER F WRITER F WRITER * Berna Pryor PA - 05/12/2023 8:12 [...] noted below. Thumb extension: 4/5 Thumb abduction:4/5 Clinical Resource Manager: 4/5 Neurovascular The patient has normal vascular [...] correlation is recommended. POCT hemoglobin A1c Order: [id number] Status: Final result Visible to patient: Yes [...] been medically optimized by their PCP and technical staff engineer and may proceed with acceptable risk. MJ Pérez Cosigned by Yefri Burgess MD at 05/13/2023 7:42 AM CHIEF WRITER F WRITER F WRITER documented in this encounter Miscellaneous Notes * Perioperative Nursing Note - Millie Cortez RN - 05/13/2023 8:50 AM CHIEF WRITER Called pt's Anthony velasquez, in the waiting room and updated him on pt's status. F WRITER * Perioperative Nursing Note - Becky Null RN - 05/13/2023 8:07 AM CHIEF WRITER Eschmark used as tourniquet and applied at 0807 Released at 0824 F WRITER * Op Note - Yefri Burgess MD - 05/13/2023 8:07 AM CST Images from the original note were not included. Operative Report SURGEON: Yefri Burgess MD Air Grinder: Becky Null RN Scrub: Maine Krueger ST [...] Burgess MD Date: 05/13/2023 Time: 8:23 AM Bullet Slug Casting Machine Operator completed by using M*Modal Fluency Direct speaking software, therefore, transcriptionvariances may occur. \ F WRITER * Pre-Procedure Instructions - Mimi Cuello RN - 05/04/2023 2:36 PM CHIEF WRITER We are pleased that you and your doctor have chosen [facility] for your surgery. We hope [...] flash glucose scanning reader ([employer] Viviane 2 [place]) [facility] flash glucose sensor ([employer] Viviane 2 Sensor) kit insulin lispro (HumaLOG) 100 unit/mL pen for injection Stop taking 1 days prior to surgery OneTouch Delica Plus Lancet [facility] One[facility] Ultra Test strip TRUEplus Pen Needle 32 gauge x 5/32 needle Use no make-up, nail irish, lotions, oils or powders on your skin. [...] down the olsen until you see the [employer]/coffee shop, there will be elevators to the [...] posted at the top of the page. F WRITER documented in this encounter Plan of Treatment Not on file documented as of this encounter Procedures Procedure Name Priority Date/Time Associated Diagnosis Comments POCT GLUCOSE DEVICE Routine 05/13/2023 8 :39 AM CHIEF WRITER RELEASE CARPAL TUNNEL 05/13/2023 7:47 AM CHIEF WRITER De Quervain's tenosynovitis Carpal tunnel syndrome on right POCT GLUCOSE DEVICE Routine 05/13/2023 6 :40 AM CHIEF WRITER POCT HCG, URINE Routine 05/13/2023 6:28 AM CHIEF WRITER documented in this encounter Results * (ABNORMAL) POCT glucose (05/13/2023 8:39 AM CHIEF WRITER) Glucose, POC 129(H) 71 - 98 mg/dL ILDA ARGUELLES (LAMINE) Blood 05/13/2023 8:39 AM CHIEF WRITER 05/13/2023 8:39 AM CHIEF WRITER Yefri Burgess MD LAB POCT ORDERABLES - DEVICE Final Result ILDA BLANE (LAMINE) 1 [facility] Department [place] [address] * (ABNORMAL) POCT glucose (05/13/2023 6:40 AM CHIEF WRITER) Glucose, POC 112(H) 71 - 98 mg/dL ILDA ARGUELLES (LAMINE) Blood 05/13/2023 6:40 AM CHIEF WRITER 05/13/2023 6:40 AM CHIEF WRITER Yefri Burgess MD LAB POCT ORDERABLES - DEVICE Final Result ILDA ARGUELLES [place]) 2 [facility] [place] [address] * POCT hCG, urine (05/13/2023 6:28 AM CHIEF WRITER) HCG, ur, POC Negative Negative Lot Number [id number] QC Backgroud Clear Acceptable QC Control Line Acceptable Urine 05/13/2023 6:28 AM CHIEF WRITER us Juana Burns MD POINT OF CARE [...] Pre-Emptive AnalgesiaIndications:Pre-Emptive Analgesia Given 05/13/2023 6:48 AM CHIEF WRITER 1,000 mg HYDROcodone-acetaminophen (NORCO) 5-325 mg per tablet 1 tablet 1 tablet, oral, Every 4 hours PRN, 1st line for pain, Starting on Thu05/13/23 at 0908, Pre-Op, Indications: PainIndications:Pain Given 05/13/2023 9:35 AM CHIEF WRITER 1 tablet sodium chloride 0.9% infusion 30 mL/hr, intravenous, Continuous, Starting on Thu05/13/23 at 0700, Pre-Op New Bag 05/13/2023 8:10 AM CHIEF WRITER Rate/Dose Verify 05/13/2023 7:47 AM CHIEF WRITER 30 mL/h r New Bag 05/13/2023 6:48 AM CHIEF WRITER 30 mL/hr 30 mL/hr documented in this [...] Recently Administered Medications Times are shown in CHIEF WRITER. Scheduled Medication Order 05/11/2023 05/12/2023 05/13/2023 acetaminophen [...] documented as of this encounter Care Teams Intern Relationship Specialty Start Date End Date Jessica Navarro NP [address] [place] [address] PCP - General 08/23/20 Ophelia Ashraf MD [address] [facility] [address] [place] [address] Consulting Physician Endocrinology 04/15/23 documented as of this encounter
--- OUTSIDE RECORDS SUMMARY | 2024-04-14 18:55 | XMS_ITS | Encounter Summary ---
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
--- OUTSIDE RECORDS SUMMARY | 2024-04-14 18:55 | XMS_ITS | Encounter Summary ---
Author Organization [facility] Healthcare Address [address] [place] [address] Care Team Providers Care Fondant Puff Maker Name Role Phone Melanie, Jessica Pinto NP Primary Care Provider + [phone] Ophelia Ashraf MD Unavailable [phone] Reason for Visit * Auth/Cert (Routine) Specialty Diagnoses / Procedures Referred By Jonas reeves Referred To Contact Diagnoses De Quervain's tenosynovitis Carpal tunnel syndrome on right De Quervain's tenosynovitis [M65.4] Carpal tunnel syndrome on right [G56.01] Procedures NV NEUROPLASTY &/TRANSPOS MEDIAN NRV CARPAL TUNNE NV INCISION EXTENSOR TENDON SHEATH WRIST Right carpal tunnel release and dequervain's disease release-hand table Referral ID Status Reason Start Date Expiration Date Visits Re quested Visits Authorized [id number] 1 1 Encounter Details Date Type Department Care Team (Late st Contact Info) Description 05/13/2023 7:45 AM TIP PUNCHER - 05/13/2023 8:45 AM TIP PUNCHER Surgery [facility] Operating Room [address] [place] [address] Yefri Burgess MD [address] [place] [address] [address] [address] Right carpal tunnel release and dequervain's disease release Surgery Details Date/Time Status Location OR Service Patient Class Case Class Case Type Trauma Case? 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 Not on file documented as of this encounter Last Filed Vital Signs Vital Sign Reading Time Taken Comments Blood Pressure 115/69 05/13/2023 8:45 AM TIP PUNCHER Pulse 91 05/13/2023 8:45 AM TIP PUNCHER Temperature 36 ??C (96.8 ??F) 05/13/2023 8:31 AM TIP PUNCHER Respiratory Rate 27 05/13/2023 8:45 AM TIP PUNCHER Oxygen Saturation 100% 05/13/2023 8:45 AM TIP PUNCHER Inhaled Oxygen Concentration - - Weight 83 kg (182 lb 15.7 oz) 05/13/2023 6:34 AM TIP PUNCHER Height 160 cm (5' 3 ) 05/13/2023 6:34 AM TIP PUNCHER Body Mass Index 32.41 05/13/2023 6:34 AM TIP PUNCHER documented in this encounter Discharge Instructions * Attachments The following attachments cannot be sent through Care Everywhere. * General Anesthesia (Discharge Care) (Zimbabwean) * Carpal Tunnel Surgery (Discharge Care) (Zimbabwean) * Ascorbic Acid (Vitamin C) (By mouth) (Zimbabwean) * Vitamin D (By mouth) ([place]imbabwean) * Hydrocodone/Acetaminophen (By mouth) (Zimbabwean) * Ondansetron (By mouth, Into the mouth) ([place]imbabwean) * Laxative, Stimulant Combination (By mouth) (Zimbabwean) documented in this encounter Medications at Time [...] flash glucose scanning reader (FreeStyle Viviane 2 [place]) [facility] Use to monitor glucose levels, DX E11.65, [...] Plus Lancet 33 gauge misc 03/27/2022 4 OpenGov SolutionsTouch Ultra Test strip Use to check sugars [...] tunnel release and dequervain's disease release-hand table PUNCHER Source Note - Berna Pryor PA - 05/12/2023 8:12 AM TIP PUNCHER Images from the original note were not [...] noted below. Thumb extension: 4/5 Thumb abduction:4/5 Optometric Technician: 4/5 Neurovascular The patient has normal vascular [...] correlation is recommended. POCT hemoglobin A1c Order: [id number] Status: Final result Visible to patient: Yes [...] been medically optimized by their PCP and eyeglass frames inspector and may proceed with acceptable risk. MJ Pérez Cosigned by Yefri Burgess MD at 05/13/2023 7:42 AM TIP PUNCHER PUNCHER PUNCHER * Berna Pryor PA - 05/12/2023 8:12 [...] noted below. Thumb extension: 4/5 Thumb abduction:4/5 Optometric Technician: 4/5 Neurovascular The patient has normal vascular [...] correlation is recommended. POCT hemoglobin A1c Order: [id number] Status: Final result Visible to patient: Yes [...] been medically optimized by their PCP and eyeglass frames inspector and may proceed with acceptable risk. MJ Pérez Cosigned by Yefri Burgess MD at 05/13/2023 7:42 AM TIP PUNCHER PUNCHER PUNCHER documented in this encounter Miscellaneous Notes * Perioperative Nursing Note - Millie Cortez RN - 05/13/2023 8:50 AM TIP PUNCHER Called pt's corinnaance Anthony, in the waiting room and updated him on pt's status. PUNCHER * Perioperative Nursing Note - Becky Null RN - 05/13/2023 8:07 AM TIP PUNCHER Eschmark used as tourniquet and applied at 0807 Released at 0824 PUNCHER * Op Note - Yefri Burgess MD - 05/13/2023 8:07 AM CST Images from the original note were not included. Operative Report SURGEON: Yefri Burgess MD Cotton Dispatcher: Becky Null RN Scrub: Maine Krueger ST [...] Burgess MD Date: 05/13/2023 Time: 8:23 AM Laboratory Secretary completed by using [employer]*Cennox Direct speaking software, therefore, transcriptionvariances may occur. \ PUNCHER * Pre-Procedure Instructions - Mimi Cuello RN - 05/04/2023 2:36 PM TIP PUNCHER We are pleased that you and your doctor have chosen [facility] for your surgery. We hope [...] flash glucose scanning reader (FreeStyle Viviane 2 [place]) [facility] flash glucose sensor (FreeStyle Viviane 2 Sensor) kit insulin lispro (HumaLOG) 100 unit/mL pen for injection Stop taking 1 days prior to surgery OneTouch Delica Plus Lancet 33 gauge [facility] OneTouch Ultra Test strip TRUEplus Pen Needle 32 gauge x 5/32 needle Use no make-up, nail armenian, lotions, oils or powders on your skin. [...] down the olsen until you see the [employer]/coffee shop, there will be elevators to the [...] posted at the top of the page. PUNCHER documented in this encounter Plan of Treatment Not on file documented as of this encounter Procedures Procedure Name Priority Date/Time Associated Diagnosis Comments POCT GLUCOSE DEVICE Routine 05/13/2023 8 :39 AM TIP PUNCHER RELEASE CARPAL TUNNEL 05/13/2023 7:47 AM TIP PUNCHER De Quervain's tenosynovitis Carpal tunnel syndrome on right POCT GLUCOSE DEVICE Routine 05/13/2023 6 :40 AM TIP PUNCHER POCT HCG, URINE Routine 05/13/2023 6:28 AM TIP PUNCHER documented in this encounter Results * (ABNORMAL) POCT glucose (05/13/2023 8:39 AM TIP PUNCHER) Glucose, POC 129(H) 71 - 98 mg/dL ILDA ARGUELLES (LAMINE) Blood 05/13/2023 8:39 AM TIP PUNCHER 05/13/2023 8:39 AM TIP PUNCHER us Yefri Burgess MD LAB POCT ORDERABLES - DEVICE Final Result ILDA ARGUELLES (BOWBELLS) 1 [facility] Department [place] [address] * (ABNORMAL) POCT glucose (05/13/2023 6:40 AM TIP PUNCHER) Glucose, POC 112(H) 71 - 98 mg/dL ILDA ARGUELLES (LAMINE) Blood 05/13/2023 6:40 AM TIP PUNCHER 05/13/2023 6:40 AM TIP PUNCHER us Yefri Burgess MD LAB POCT ORDERABLES - DEVICE Final Result ILDA ARGUELLES (LAMINE) 1 [facility] Department [place] [address] * POCT hCG, urine (05/13/2023 6:28 AM TIP PUNCHER) HCG, ur, POC Negative Negative Lot Number [id number] QC Backgroud Clear Acceptable QC Control Line Acceptable Urine 05/13/2023 6:28 AM TIP PUNCHER us Juana Burns MD POINT OF CARE [...] AnalgesiaIndications:Pre-Em ptive Analgesia Given 05/13/2023 6:48 AM TIP PUNCHER 1,000 mg HYDROcodone-acetaminophen (NORCO) 5-325 mg per tablet 1 tablet 1 tablet, oral, Every 4 hours PRN, 1st line for pain, Starting on Thu05/13/23 at 0908, Pre-Op, Indications: PainIndications:Pain Given 05/13/2023 9:35 AM TIP PUNCHER 1 tablet lidocaine-EPINEPHrine (XYLOCAINE with EPI) 1 %-1:200,000 preservative free injection As needed, Starting on Thu05/13/23 at 0815, Intra-Op, Indications: Administration of Local AnesthesiaIndications:Admin istration of Local Anesthesia Given 05/13/2023 8:15 AM TIP PUNCHER 10 mL Surgical Site sodium chloride 0.9% infusion 30 mL/hr, intravenous, Continuous, Starting on Thu05/13/23 at 0700, Pre-Op New Bag 05/13/2023 8:10 AM TIP PUNCHER Rate/Dose Verify 05/13/2023 7:47 AM TIP PUNCHER 30 mL/h r New Bag 05/13/2023 6:48 AM TIP PUNCHER 30 mL/hr 30 mL/hr sodium chloride 0.9% irrigation As needed, Starting on Thu05/13/23 at 0809, Intra-Op Given 05/13/2023 8:09 AM TIP PUNCHER 500 mL Surgical Site documented in this [...] Recently Administered Medications Times are shown in TIP PUNCHER. Scheduled Medication Order 05/11/2023 05/12/2023 05/13/2023 acetaminophen [...] documented as of this encounter Care Teams Fondant Puff Maker Relationship Specialty Start Date End Date Jessica Navarro NP [address]ABETH [address] [place] [address] PCP - General 08/23/20 Ophelia Ashraf MD [address] [place] [address] DR EL[address] [place] [address] Consulting Physician Endocrinology 04/15/23 documented as of this encounter
--- OUTSIDE RECORDS SUMMARY | 2024-04-14 18:55 | XMS_ITS | Encounter Summary ---
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 Left message to have her contact the office. OL AGE PROGRAM ASSOCIATE documented in this encounter Plan of Treatment Not on file documented as of this encounter Visit Diagnoses Not on filedocumented in this encounter Additional Health Concerns Infection Onset Date Last Indicated Resolved Time COVID: Recovered Comment:Added based on recent COVID infection. 04/20/2023 05/04/2023 07/19/2023 3:05 AM C DT documented as of this encounter Care Teams Innersole Maker Relationship Specialty Start Date End Date Jessica Navarro NP [address]AB[address] [place] [address] PCP - General 08/23/20 Ophelia Ashraf MD 4 [facility] [address] ELIZABETH [address] [place] [address] Consulting Physician Endocrinology 04/15/23 documented as of this encounter
--- OUTSIDE RECORDS SUMMARY | 2024-04-14 18:55 | XMS_ITS | Encounter Summary ---
Author Organization [facility] Healthcare Address [address] [place] [address] Care Team Providers Care Booth Cleaner Name Role Phone Melanie, Jessica Pinto NP Primary Care Provider + [phone] Ophelia Ashraf MD Unavailable [phone] Reason for Visit * Reason Comments infertility counseling Encounter Details Date Type Department Care Team (Late st Contact Info) Description 05/26/2023 2:45 PM MULTI CRAFT MAINTENANCE TECHNICIAN Office Visit Obstetrics and Gynecology Clinic [address] 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 N ot on file Not on file documented as of this encounter Last Filed Vital Signs Vital Sign Reading Time Taken Comments Blood Pressure 131/83 05/26/2023 2:50 PM MULTI CRAFT MAINTENANCE TECHNICIAN Pulse 89 05/26/2023 2:50 PM MULTI CRAFT MAINTENANCE TECHNICIAN Temperature - - Respiratory Rate - - Oxygen Saturation 100% 05/26/2023 2:50 PM MULTI CRAFT MAINTENANCE TECHNICIAN Inhaled Oxygen Concentration - - Weight 82.3 kg (181 lb 6.4 oz) 05/26/2023 2:50 P M MULTI CRAFT MAINTENANCE TECHNICIAN Height 162.6 cm (5' 4 ) 05/26/2023 2:50 PM MULTI CRAFT MAINTENANCE TECHNICIAN Body Mass Index 31.14 05/26/2023 2:50 PM MULTI CRAFT MAINTENANCE TECHNICIAN documented in this encounter Patient Instructions * Patient Instructions* David Reyes MD - 05/26/2023 2:45 PM MULTI CRAFT MAINTENANCE TECHNICIAN Take letrozole 2.5mg PO daily x5 days [...] or after Provera), resume at step 2. I CRAFT MAINTENANCE TECHNICIAN I CRAFT MAINTENANCE TECHNICIAN documented in this encounter Progress Notes * David Reyes MD - 05/26/2023 2:45 PM [address]ST PLANE TENDER NEW VISIT Subjective: Lilli Santos is a [...] is happening but frequently is not ovulating. PLANE TENDER History Menses: irregular, states that she can [...] flash glucose scanning reader (FreeStyle Viviane 2 [place]) [place], Use to monitor glucose levels, DX E11.65, [...] 1 OneTouch Delica Plus Lancet 33 gauge [place], , Disp: , Rfl: OneTouch Ultra Test [...] hyperglycemia, with long-term current use of insulin ([facility]) ([facility]) Genitourinary and Reproductive Infertility counseling - Primary [...] Garima Cruz MD at 05/28/2023 3:13 PM MULTI CRAFT MAINTENANCE TECHNICIAN I CRAFT MAINTENANCE TECHNICIAN I CRAFT MAINTENANCE TECHNICIAN Associated attestation - Garima Cruz MD - 05/28/2023 3:13 PM MULTI CRAFT MAINTENANCE TECHNICIAN ATTESTATION: I have seen and examined the patient with the resident and I was present for the mcdaniel portions of the history and physical examination. I have reviewed Dr. Reyes???s history, physical exam, and management plan. I have made appropriate revisions to the note and agree with the findings and plan of care as documented. I was personally present and involved for the PLANE TENDER visit . I personally performed the patient counseling. Briefly, 28yo G0 with PCOS and T2DM who desires fertility. Discussion today re: inducing menses ,starting empiric OI with letrozole, timed intercourse, and progesterone check. Garima Cruz MD documented in this encounter Miscellaneous Notes * Assessment & Plan Note - David Reyes MD - 05/28/2023 9:47 AM MULTI CRAFT MAINTENANCE TECHNICIAN Associated Problem(s): Infertility counseling -Ordered AMH and [...] IgG with next labs -Recommend continuing vitamin I CRAFT MAINTENANCE TECHNICIAN I CRAFT MAINTENANCE TECHNICIAN documented in this encounter Plan of Treatment Not on file documented as of this encounter Procedures Procedure Name Priority Date/Time Associated Diagnosis Comments ANTIMULLERIAN HORMONE (AMH) Routine 05/26/2023 3:55 PM MULTI CRAFT MAINTENANCE TECHNICIAN Infertility counseling FOLLICLE STIMULATING HORMONE Routine 05/26/2023 3:55 PM MULTI CRAFT MAINTENANCE TECHNICIAN Infertility counseling POCT HCG, URINE Routine 05/26/2023 2:51 PM MULTI CRAFT MAINTENANCE TECHNICIAN Infertility counseling documented in this encounter Results * Follicle stimulating hormone (05/26/2023 3:55 PM MULTI CRAFT MAINTENANCE TECHNICIAN) FSH 4.0 IUnits/L ILDA HAYES Comment: Interpretive Data Male: Adults: ?1.5 - 12.4 IUnits/L Female: ?? Follicular: ?3.5 - 12.5 IUnits/L Ovulation: ? 4.7 - 21.5 IUnits/L Luteal: ?1.7 - 7.7 IUnits/L Postmenopausal: 25.8 - 134.8 IUnits/L Current interpretive data was last revised 2015. Blood 05/26/2023 3:55 PM MULTI CRAFT MAINTENANCE TECHNICIAN 05/26/2023 5:05 PM MULTI CRAFT MAINTENANCE TECHNICIAN us David Reyes MD LAB BLOOD ORDERABLES Final Result [facility] Department [place] [address] * (ABNORMAL) Antimullerian hormone (AMH) (05/26/2023 3:55 PM MULTI CRAFT MAINTENANCE TECHNICIAN) AMH, ab 16(H) 0.58 - 8.1 ng/mL ILDA HAYES Comment: ADDITIONAL INFORMATION The testing method is an electrochemiluminescence assay manufactured by [employer] and performed on the Immanuel system. Values obtained with different assay methods or kits may be different and cannot be used interchangeably. This test has been modified from the manufacturers instructions. Its performance characteristics were determined by [facility] in a manner consistent with CLIA requirements. This test has not been cleared or approved by the U.S. Food and Drug Administration. Test Performed by: [facility] [address] [place] [address] Blind Eyeletter: Marques Molina M.D. Ph.D.; CLIA# [id number] Blood 05/26/2023 3:55 PM MULTI CRAFT MAINTENANCE TECHNICIAN 05/26/2023 5:36 PM MULTI CRAFT MAINTENANCE TECHNICIAN David Reyes MD LAB BLOOD ORDERABLES Final Result [facility] Department [place] [address] * POCT hCG, urine (05/26/2023 2:51 PM MULTI CRAFT MAINTENANCE TECHNICIAN) HCG, ur, POC Negative Negative Lot Number [id number] QC Backgroud Clear Acceptable QC Control Line Acceptable Urine 05/26/2023 2:51 PM MULTI CRAFT MAINTENANCE TECHNICIAN David Reyes MD POINT OF CARE TEST [...] documented as of this encounter Care Teams Booth Cleaner Relationship Specialty Start Date End Date Jessica Navarro NP [address] [place] [address] PCP - General 08/23/20 Ophelia Ashraf MD 4 [facility] [address] [address] Consulting Physician Endocrinology 04/15/23 documented as of this encounter
--- OUTSIDE RECORDS SUMMARY | 2024-04-14 18:55 | XMS_ITS | Encounter Summary ---
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
--- OUTSIDE RECORDS SUMMARY | 2024-04-14 18:55 | XMS_ITS | Encounter Summary ---
Author Organization 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
--- OUTSIDE RECORDS SUMMARY | 2024-04-14 18:55 | XMS_ITS | Encounter Summary ---
Author Organization [facility] Healthcare Address [address] [place] [address] Care Team Providers Care Math Tutor Name Role Phone Melanie, Jessica Pinto NP Primary Care Provider + [phone] Ophelia Ashraf MD Unavailable [phone] Encounter Details Date Type Department Care Team (Late st Contact Info) Description 05/06/2023 Telephone [facility] Medical Group Orthopedics and Sports Medicine [address] [place] [phone] Yefri Burgess MD [address] [place] [address] [address] [address] Social History Tobacco Use Types Packs/Day Years [...] 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 Clearance scanned into media. AGE MACHINE OPERATOR * Telephone Encounter - Alejandra Rico MA - 05/08/2023 2:19 PM SELVAGE MACHINE OPERATOR Faxed blank clearance form to Jessica Navarro' office. Called and spoke with their office and informedthem unfortunately we can not accept the copy they had faxed us and requested that Jessica signs the new copy I faxed. They are getting a message back and will have that signed and faxed back. AGE MACHINE OPERATOR * Telephone Encounter - Berna Spicer - 05/06/2023 2:51 PM CST Jessica drury office called to say she this is Marleni' signature on the scanned paperwork that has Dr. Ashraf name at the top. If you need anything else , please call Jessica's office. AGE MACHINE OPERATOR * Telephone Encounter - Berna Spicer - 05/06/2023 1:55 PM CST I called De Jessica's office and informed them that I received a copy of Dr. Ashraf clearance rather than a clearance from Jessica Navarro office. AGE MACHINE OPERATOR * Telephone Encounter - Berna Spicer - 05/06/2023 1:35 PM CST Clearance from Dr. Radford office is scanned into federal mediation commissioner AGE MACHINE OPERATOR documented in this encounter Plan of Treatment Not on file documented as of this encounter Visit Diagnoses Not on filedocumented in this encounter Additional Health Concerns Infection Onset Date Last Indicated Resolved Time COVID: Recovered Comment:Added based on recent COVID infection. 04/20/2023 05/04/2023 07/19/2023 3:05 AM C DT documented as of this encounter Care Teams Math Tutor Relationship Specialty Start Date End Date Navarro, Jessica Pinto NP [address] [place] [address] PCP - General 08/23/20 Ophelia Ashraf MD 4 [facility] [address] [place] [address] Consulting Physician Endocrinology 04/15/23 documented as of this encounter
--- OUTSIDE RECORDS SUMMARY | 2024-04-14 18:55 | XMS_ITS | Encounter Summary ---
Author Organization [facility] Healthcare Address [address] [place] [address] Care Team Providers Care Regrinder Name Role Phone Jessica Navarro NP Primary Care Provider + [phone] Ophelia Ashraf MD Unavailable [phone] Encounter Details Date Type Department Care Team (Late st Contact Info) Description 04/14/[address] [facility] Orthopedics and Sports Medicine [address] [place] [phone] Marge Pearson MA Social History Tobacco [...] Industry Job Start Date Job End Date [employer] Not on file N ot on file Not on file documented as of this encounter Miscellaneous Notes * Telephone Encounter - Alejandra Rico MA - 04/15/2023 11:12 AM SPICE CLEANER Noted and updated. Thank you. E CLEANER * Telephone Encounter - Yudy Ruggiero - 04/15/2023 8:54 AM CST Spoke with patient and surgery date will be [id number] E CLEANER * Telephone Encounter - Marge Pearson MA - 04/14/2023 10:45 AM CST Patient has her A1C down to 6.8, she is consented for surgery. Please contact to schedule. CTR w/[employer]. Thank you E CLEANER documented in this encounter Plan of Treatment Not on file documented as of this encounter Visit Diagnoses Not on filedocumented in this encounter Additional Health Concerns Infection Onset Date Last Indicated Resolved Time COVID19 04/10/2023 04/10/2023 04/20/2023 3:05 AM SPICE CLEANER documented as of this encounter Care Teams Regrinder Relationship Specialty Start Date End Date Jessica Navarro NP [address] [place] [id number] PCP - General 08/23/20 Ophelia Ashraf MD [address] [facility] [address] [place] [place] [id number] Consulting Physician Endocrinology 04/15/23 documented as of this encounter
--- OUTSIDE RECORDS SUMMARY | 2024-04-14 18:55 | XMS_ITS | Encounter Summary ---
Author Organization [facility] Healthcare Address [address] [place] [address] Care Team Providers Care Associate Account Director Name Role Phone Melanie, Jessica Pinto NP Primary Care Provider + [phone] Ophelia Ashraf MD Unavailable [phone] Encounter Details Date Type Department Care Team (Late st Contact Info) Description 07/14/2023 9:00 AM CDT [address] Type 2 diabetes mellitus with hyperglycemia, with long-term current use of insulin ([facility]/HCC) ([facility]) Social History Tobacco Use Types Packs/Day [...] Industry Job Start Date Job End Date [employer] Not on file N ot on [...] trusting me with your care. Malini Cummins EMERGENCY ROOM TECH documented in this encounter Plan of Treatment Not on file documented as of this encounter Procedures Procedure Name Priority Date/Time Associated Diagnosis Comments EGFR Routine 07/14/2023 8:54 AM CDT Type 2 diabetes mellitus with hyperglycemia, with long-term current use of insulin ([facility]) ([facility]) THYROID FUNCTION CASCADE Routine 07/14/2023 8:54 AM CDT Type 2 diabetes mellitus with hyperglycemia, with long-term current use of insulin (CMS/[facility]) ([facility]) ALBUMIN CREATININE RATIO, URINE Routine 07/14/2023 8:54 AM CDT Type 2 diabetes mellitus with hyperglycemia, with long-term current use of insulin (CMS/HCC) ([facility]) LIPID PANEL Routine 07/14/2023 8:54 AM CDT Type 2 diabetes mellitus with hyperglycemia, with long-term current use of insulin (CMS/HCC) ([facility]) COMPREHENSIVE METABOLIC PANEL Routine 07/14/2023 8:54 AM CDT Type 2 diabetes mellitus with hyperglycemia, with long-term current use of insulin (CMS/HCC) ([facility]) documented in this encounter Results * [...] NP LAB BLOOD ORDERABLES Final Resu lt [facility] ([place]) [address] [facility] Department [place] [address] * Albumin Creatinine Ratio, Urine (07/14/2023 8:54 AM CDT) Albumin Ur 20.2 mg/L Comment: Interpretive Data No reference range established. Current interpretive data was last revised 2018. Testing performed by: [facility], [address] [place] [address]., [id number] Creatinine Ur 437.5 mg/dL [facility] ([place]) Comment: Interpretive Data No reference range established. Current interpretive data was last revised 2018. Testing performed by: [facility], [address] [place] [address]., [id number] Albumin Creatinine Ratio, Ur 5 1 - 29 mg/g [facility] ([place]) Comment:Testing performed by : [facility], [address] [place] [address]., [id number] Urine 07/14/2023 8:54 AM CDT 07/14/2023 3:58 PM CDT us Malini Cummins NP LAB URINE ORDERABLES Final Resu lt [facility] ([place]) 1 [facility] Department [place] [address] * Comprehensive metabolic panel (07/14/2023 8:54 AM CDT) Sodium 139 135 - 145 mmol/L Potassium, pl 4.0 3.3 - 4.9 mmol/L [facility] ([place]) Chloride 102 97 - 110 mmol/L [facility] ([place]) CO2 27 22 - 32 mmol/L [facility] ([place]) Anion gap 10 2 - 15 mmol/L [facility] ([place]) BUN 13 6 - 25 mg/dL [facility] ([place]) Creatinine 0.84 0.60 - 1.10 mg/dL [facility] ([place]) Glucose 124 70 - 199 mg/dL [facility] ([place]) Comment: Interpretive Data [...] NP LAB BLOOD ORDERABLES Final Resu lt [facility] ([place]) 1 [facility] Department [place] [address] * (ABNORMAL) Lipid panel (07/14/2023 8:54 AM [...] Final Resu lt [facility] ([place]) 1 [facility] Department [place] [address] * Thyroid Function Brooke (07/14/2023 8:54 AM CDT) TSH 2.21 0.30 - 4.20 mcIUnit/mL Blood 07/14/2023 8:54 AM CDT 07/14/2023 11:02 AM CDT us Malini Cummins NP LAB BLOOD ORDERABLES Final Resu lt [facility] ([place]) 1 [facility] Department [place] [address] documented in this encounter Visit Diagnoses Diagnosis Type 2 diabetes mellitus with hyperglycemia, with long-term current use of insulin (HCC) documented in this encounter Additional Health Concerns Infection Onset Date Last Indicated Resolved Time COVID: Recovered Comment:Added based on recent COVID infection. 04/20/2023 05/04/2023 07/19/2023 3:05 AM C DT documented as of this encounter Care Teams Associate Account Director Relationship Specialty Start Date End Date Jessica Navarro NP [address] [place] [address] PCP - General 08/23/20 Ophelia Ashraf MD [address] [facility] [address] [place] [id number] Consulting Physician Endocrinology 04/15/23 documented as of this encounter
--- OUTSIDE RECORDS SUMMARY | 2024-04-14 18:55 | XMS_ITS | Encounter Summary ---
Author Organization [facility] Healthcare Address [address] [place] [address] Care Team Providers Care Vaccine Specialist Name Role Phone Jessica Navarro NP Primary Care Provider [phone] Reason for Visit * Reason Comments Vomiting Encounter Details Date Type Department Care Team (Late st Contact Info) Description 12/28/2022 8:17 PM CDT - 12/28/2022 10:40 PM CDT Emergency [facility] Emergency Department [address] [place] [address] Lashon Starr MD [address] [place] [address] Nausea and vomiting, unspecified vomiting type (Primary [...] Industry Job Start Date Job End Date [employer] Not on file N ot on file [...] sent through Care Everywhere. * Vomiting (Adult) (Honduran) * Abnormal (Dysfunctional) Uterine Bleeding (AfterCare(R) Instructions(ER/ED)) (Honduran) documented in this encounter Medications at Time [...] FOOD 03/11/2022 3 flash glucose scanning reader (RxAdvance Viviane 2 [place]) [facility] Use to monitor glucose [...] 4 OneTouch Delica Plus Lancet 33 gauge [facility] 03[facility]27/202201/27 4 OneTouch Ultra Test strip Use [...] with voice recognition software. Occasional wrong-word or '[id number]' substitutions may have occurred due to the [...] not discuss the nausea vomiting with her fuel house attendant who she recently saw and she has [...] mg tablet flash glucose scanning reader (FreeStyle Viviaen 2 [place]) [facility] flash glucose sensor (FreeStyle Viviane 2 Sensor) kit ibuprofen (ADVIL,MOTRIN) 800 mg tablet insulin lispro (HumaLOG) 100 unit/mL pen for injection LANTUS 100 unit/mL (3 mL) pen for injection metFORMIN (GLUCOPHAGE) 500 mg tablet metoclopramide (REGLAN) 10 mg tablet ondansetron ODT (ZOFRAN-ODT) 4 mg disintegrating tablet OneTouch Delica Plus Lancet 33 gauge [facility] OneTouch Ultra Test strip tiZANidine (ZANAFLEX) 4 [...] tendency for uric acid stone formation. Source: [facility].Last revised 05-07-2017 CBC WITH AUTO DIFFERENTIAL - [...] by myself in the absence of a hardware technician) ED course/MDM: External chart review: (details typically [...] been completed with a voice recognition program. Project Analyst errors occur. Please contact me for any clarification.) Lashon Starr MD 12/28/22 2160 * Sebastian Kelley RN - 12/28/2022 8:11 [...] standards) IL[facility] TAYLOR) Comment:Testing performed by : [facility], [address] [place]., [address] Organism (CLINICALLY INSIGNIFICANT GROWTH [facility] ([place]) Urine 12/28/2022 8:32 PM CDT 12/29/2022 1:05 AM CDT Narrative [facility] ([place]) - 12/30/2022 7:05 AM CDT Urine culture reflexed based upon urinalysis results. Testing performed by [facility] Microbiology Laboratory ([phone]) Evan Westbrook MD LAB MICROBIOLOGY - GENERAL O RDERABLES Final Result [facility] ([place]) 1 [facility] Department [place] [address] * (ABNORMAL) Urinalysis, microscopic only (12/28/2022 8:32 [...] to urine culture will be performed. [facility] ([place]) Urine 12/28/2022 8:32 PM CDT 12/28/2022 8:34 PM CDT us Evan Westbrook MD LAB URINE ORDERABLES Final R esult Performing Organization Address [facility]/ZIP Co de Phone Number [facility] ([place]) 1 [facility] [place] [address] * hCG, urine, qualitative (12/28/2022 8:32 PM CDT) HCG, ur Negative Negative [facility] ([place]) Urine 12/28/2022 8:32 PM CDT 12/28/2022 8:41 PM CDT us Lashon Starr MD LAB URINE ORDERABLES Fin al Result Performing Organization Address [facility] de Phone Number [facility] ([place]) 1 [facility] [place] [address] * (ABNORMAL) Urinalysis reflex to microscopic and culture Urine (12/28/2022 8:32 PM CDT) Color, ur Red(A) Yellow [facility] ([place]) Clarity, ur Turbid(A) Clear [facility] ([place]) Specific gravity, ur 1.019 1.003 - 1.030 [facility] ([place]) pH, urine 7.5 [facility] ([place]) Protein, ur ql 2+(A) Negative [facility] ([place]) Glucose, ur ql Negative Negative [facility] ([place]) Ketones, ur Negative Negative [facility] ([place]) Bilirubin, ur Negative Negative [facility] ([place]) Blood, ur 3+(A) Negative [facility] ([place]) Urobilinogen, ur 2.0(A) <2.0 mg/dL [facility] ([place]) Nitrite, ur Negative Negative [facility] ([place]) Leukocyte esterase, ur 2+(A) Negative [facility] ([place]) UA reflex comment Reflex to microscopic UA [...] tendency for uric acid stone formation. Source: [employer]. Last revised 05-07-2017 us Lashon Starr MD LAB MICROBIOLOGY - GENER AL ORDERABLES Final Result [facility] ([place]) 1 [facility] Department [place] [address] * eGFR (12/28/2022 8:26 PM CDT) eGFR [...] BLOOD ORDERABLES Final R esult [facility] ([place]) 1 [facility] Department [place] [address] * (ABNORMAL) Differential, auto (12/28/2022 8:26 PM [...] BLOOD ORDERABLES Fin al Result [facility] ([place]) 1 [facility] [place] [address] * Lipase (12/28/2022 8:26 PM CDT) Lipase 19 10 - 99 Units/L [facility] ([place]) Blood (Blood, Venous) 12/28/2022 8:26 PM CDT 12/28/2022 8:28 PM CDT Lashon Starr MD LAB BLOOD ORDERABLES Fin al Result [facility] ([place]) 1 [facility] [place] [address] * (ABNORMAL) Comprehensive metabolic panel (12/28/2022 8:26 [...] MD LAB BLOOD ORDERABLES Fin al Result [facility] ([place]) 1 [facility] Department [place] [address] * (ABNORMAL) CBC with auto differential (12/28/2022 [...] RDW SD 38.5 35.7 - 48.1 fL [facility] ([place]) NRBC abs 0.00 0.00 - 0.01 K/cumm [facility] ([place]) Blood (Blood, Venous) 12/28/2022 8:26 PM CDT 12/28/2022 8:28 PM CDT us Lashon Starr MD LAB BLOOD ORDERABLES Fin al Result [facility] ([place]) 1 [facility] Department [place] [address] documented in this encounter Visit Diagnoses Diagnosis [...] 12/28/2022 documented in this encounter Care Teams Vaccine Specialist Relationship Specialty Start Date End Date Melanie, Jessica Pinto NP [address] [place] [address] PCP - General 08/23/20 documented as of this encounter
--- OUTSIDE RECORDS SUMMARY | 2024-04-14 18:55 | XMS_ITS | Encounter Summary ---
Author Organization [facility] Healthcare Address [address] [place] [address] Care Team Providers Care Cartridge Assembling Machine Adjuster Name Role Phone Jessica Navarro NP Primary Care Provider Reason for Visit * Reason Comments Hypoglycemia BG 47 at workPatient reports her sugars have been low the last two days so she hasn't been taking her insulin. 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 Not on file documented as of this encounter Last Filed Vital Signs Vital Sign Reading Time Taken Comments Blood Pressure 145/91 04/10/2023 7:30 PM APPLICATION ARCHITECT MANAGER Pulse 71 04/10/2023 7:30 PM APPLICATION ARCHITECT MANAGER Temperature 36.9 ??C (98.4 ??F) 04/10/2023 3:49 PM CS T Respiratory Rate 16 04/10/2023 7:30 PM APPLICATION ARCHITECT MANAGER Oxygen Saturation 100% 04/10/2023 7:30 PM APPLICATION ARCHITECT MANAGER Inhaled Oxygen Concentration - - Weight 81.6 kg (180 lb) 04/10/2023 1:16 PM APPLICATION ARCHITECT MANAGER Height 160 cm (5' 3 ) 04/10/2023 1:16 PM APPLICATION ARCHITECT MANAGER Body Mass Index 31.89 04/10/2023 1:16 PM APPLICATION ARCHITECT MANAGER documented in this encounter Discharge Instructions * Discharge Instructions* Andrei Ambrocio MD - 04/10/2023 7:10 PM APPLICATION ARCHITECT MANAGER You were seen in the emergency department [...] knows if you need any dose adjustments. 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 Psychiatric: Mood and Affect: Mood normal. [facility] Medical Decision Making 28-year-old female here with [...] auto eGFR DO NOT UNCHECK - ED machine group leader Standing Order: Glucose Control Initiate droplet isolation [...] Ehsan Lopez MD at 04/10/2023 10:20 PM APPLICATION ARCHITECT MANAGER ICATION ARCHITECT MANAGER ICATION ARCHITECT MANAGER Associated attestation - Ehsan Lopez MD - 04/10/2023 10:20 PM APPLICATION ARCHITECT MANAGER I have seen and examined the patient [...] on arrival to triage she was 102. ICATION ARCHITECT MANAGER documented in this encounter Miscellaneous Notes * [...] ED Comments: Federico Page MD 04/10/23 1428 ICATION ARCHITECT MANAGER documented in this encounter Plan of Treatment Not on file documented as of this encounter Procedures Procedure Name Priority Date/Time Associated Diagnosis Comments POCT GLUCOSE DEVICE Routine 04/10/2023 7 :27 PM APPLICATION ARCHITECT MANAGER POCT HCG, URINE Routine 04/10/2023 5:54 PM APPLICATION ARCHITECT MANAGER URINALYSIS AND REFLEX TO MICROSCOPIC AND CULTURE Routine 04/10/2023 5:17 PM APPLICATION ARCHITECT MANAGER EGFR Routine 04/10/2023 4:50 PM APPLICATION ARCHITECT MANAGER DIFFERENTIAL AUTO STAT 04/10/2023 4: 50 PM APPLICATION ARCHITECT MANAGER RESPIRATORY PATHOGEN PANEL Routine 04/10/2023 4:50 PM APPLICATION ARCHITECT MANAGER POCT GLUCOSE DEVICE Routine 04/10/2023 4 :50 PM APPLICATION ARCHITECT MANAGER CBC WITH AUTO DIFFERENTIAL STAT 04/10/2023 4:50 PM APPLICATION ARCHITECT MANAGER BASIC METABOLIC PANEL Routine 04/10/2023 4:50 PM APPLICATION ARCHITECT MANAGER POCT GLUCOSE DEVICE Routine 04/10/2023 3 :20 PM APPLICATION ARCHITECT MANAGER ECG 12-LEAD STAT 04/10/2023 2:27 PM APPLICATION ARCHITECT MANAGER POCT GLUCOSE DEVICE Routine 04/10/2023 1 :19 PM APPLICATION ARCHITECT MANAGER documented in this encounter Results * POCT glucose (04/10/2023 7:27 PM APPLICATION ARCHITECT MANAGER) Glucose, POC 125 70 - 199 mg/dL [facility] Blood 04/10/2023 7:27 PM APPLICATION ARCHITECT MANAGER 04/10/2023 7:27 PM APPLICATION ARCHITECT MANAGER us Notinfile Unknown LAB POCT ORDERABLES - DEVICE F inal Result [facility] [place] [address] * POCT hCG, urine (04/10/2023 5:54 PM APPLICATION ARCHITECT MANAGER) HCG, ur, POC Negative Negative Lot Number [id number] QC Backgroud Clear Acceptable QC Control Line Acceptable Urine 04/10/2023 5:54 PM APPLICATION ARCHITECT MANAGER Andrei Ambrocio MD POINT OF CARE TEST ORDERABLES Final Result * Urinalysis reflex to microscopic and culture Urine (04/10/2023 5:17 PM APPLICATION ARCHITECT MANAGER) Pathologist [facility] Color, ur Yellow Yellow [facility] Clarity, ur Clear Clear [facility] Specific gravity, ur 1.029 1.003 - 1.030 [facility] pH, urine 6.0 [facility] Comment: Interpretive Data ? Urine pH is affected by diet, medications, systemic acid-base disturbances, and renal tubular function. ??pH may affect urinary stone formation. ??For example, urine pH below 6.0 may help reduce the tendency for calcium phosphate stones and pH greater than 6.0 may reduce the tendency for uric acid stone formation. Source: [facility] [place] Current Interpretive Data was last revised on 2017 Protein, ur ql Trace Negative [facility] Glucose, ur ql Negative Negative [facility] Ketones, ur Trace Negative [facility] Bilirubin, ur Negative Negative [facility] Blood, ur Negative Negative [facility] Urobilinogen, ur <2.0 <2.0 mg/dL [facility] Nitrite, ur Negative Negative [facility] Leukocyte esterase, ur Negative Negative [facility] UA reflex comment Reflex conditions for microscopic UA and culture not met. [facility] Urine 04/10/2023 5:17 PM APPLICATION ARCHITECT MANAGER 04/10/2023 5:39 PM APPLICATION ARCHITECT MANAGER Andrei Ambrocio MD LAB MICROBIOLOGY - GENERAL ORDERABLES Final Result [facility] Department [place] [address] * eGFR (04/10/2023 4:50 PM APPLICATION ARCHITECT MANAGER) Pathologist [facility] eGFR >90 >=60 mL/min/1. 73 m2 [facility] Comment: Interpretive Data Reference Interval Normal [...] last reviewed 2021. Blood 04/10/2023 4:50 PM APPLICATION ARCHITECT MANAGER 04/10/2023 5:09 PM APPLICATION ARCHITECT MANAGER us Andrei Ambrocio MD LAB BLOOD ORDERABLE S Final Result [facility] Department [place] [address] * (ABNORMAL) Differential, auto (04/10/2023 4:50 PM APPLICATION ARCHITECT MANAGER) Neutrophil abs 6.9(H) 1.5 - 6.5 K/cumm [facility] Imm gran abs 0.0 0.0 - 0.1 K/cumm [facility] Lymphocyte abs 3.6(H) 0.8 - 3.3 K/cumm [facility] Monocyte abs 0.5 0.2 - 0.8 K/cumm [facility] Eosinophil abs 0.2 0.0 - 0.5 K/cumm [facility] Basophil abs 0.1 0.0 - 0.1 K/cumm [facility] Neutrophil pct 61.0 % [facility] Comment: Interpretive Data Percent cell count reference ranges are not reported, since discordance with absolute values may lead to misinterpretation of CBC data. Current Interpretive Data was last revised on 2017. Imm gran pct 0.4 % [facility] Comment: Interpretive Data Percent cell count reference ranges are not reported, since discordance with absolute values may lead to misinterpretation of CBC data. Current Interpretive Data was last revised on 2017. Lymphocyte pct 32.1 % [facility] Comment: Interpretive Data Percent cell count reference ranges are not reported, since discordance with absolute values may lead to misinterpretation of CBC data. Current Interpretive Data was last revised on 2017. Monocyte pct 4.8 % [facility] Comment: Interpretive Data Percent cell count reference ranges are not reported, since discordance with absolute values may lead to misinterpretation of CBC data. Current Interpretive Data was last revised on 2017. Eosinophil pct 1.3 % [facility] Comment: Interpretive Data Percent cell count reference ranges are not reported, since discordance with absolute values may lead to misinterpretation of CBC data. Current Interpretive Data was last revised on 2017. Basophil pct 0.4 % [facility] Comment: Interpretive Data Percent cell count reference ranges are not reported, since discordance with absolute values may lead to misinterpretation of CBC data. Current Interpretive Data was last revised on 2017. Blood 04/10/2023 4:50 PM APPLICATION ARCHITECT MANAGER 04/10/2023 5:09 PM APPLICATION ARCHITECT MANAGER us Andrei Ambrocio MD LAB BLOOD ORDERABLE S Final Result [facility] Department [place] [address] * POCT glucose (04/10/2023 4:50 PM APPLICATION ARCHITECT MANAGER) Glucose, POC 75 70 - 199 mg/dL [facility] Blood 04/10/2023 4:50 PM APPLICATION ARCHITECT MANAGER 04/10/2023 4:50 PM APPLICATION ARCHITECT MANAGER us Notinfile Unknown LAB POCT ORDERABLES - DEVICE F inal Result [facility] Department [place] [address] * (ABNORMAL) Respiratory pathogen panel Nasopharyngeal (04/10/2023 4:50 PM APPLICATION ARCHITECT MANAGER) [facility] Influenza A RNA Not Detected Not Detected [facility] Influenza B RNA Not Detected Not Detected [facility] RSV RNA Not Detected Not Detected [facility] COVID-19 RNA Detected(A) Not Detected [facility] Coronavirus 229E RNA Not Detected Not Detected [facility] Coronavirus HKU1 RNA Not Detected Not Detected [facility] Coronavirus NL63 RNA Not Detected Not Detected [facility] Coronavirus OC43 RNA Not Detected Not Detected [facility] Adenovirus DNA Not Detected Not Detected [facility] Metapneumovirus RNA Not Detected Not Detected [facility] Rhinovirus/Enterov irus RNA Not Detected Not Detected [facility] Parainfluenza 1 RNA Not Detected Not Detected [facility] Parainfluenza 2 RNA Not Detected Not Detected [facility] Parainfluenza 3 RNA Not Detected Not Detected [facility] Parainfluenza 4 RNA Not Detected Not Detected [facility] B. pertussis DNA Not Detected Not Detected [facility] B. parapertussis DNA Not Detected Not Detected [facility] C. pneumoniae DNA Not Detected Not Detected [facility] M. pneumoniae DNA Not Detected Not Detected [facility] Nasopharyngeal 04/10/2023 4: 50 PM APPLICATION ARCHITECT MANAGER 04/10/2023 5:05 PM APPLICATION ARCHITECT MANAGER Narrative [facility] - 04/10/2023 6:00 PM APPLICATION ARCHITECT MANAGER Is the Patient experiencing symptoms consistent with COVID?->Yes Date of Symptom Onset->04/07/23 Reason for testing?->Bed placement or semi-private room Surveillance testing for transplant patient?->No ??Interpretive Data The [employer] Film[employer] Respiratory Panel (RP2.1) assay is a [...] assay has FDA clearance for testing of SENIOR NET ENGINEER swabs. ??The performance of additional specimen types has been assessed by the performing laboratory. ??The performance characteristics of this assay have been determined by [facility] Molecular Infectious Disease Laboratory. Current interpretive data was last revised on 22. us Andrei Ambrocio MD LAB MICROBIOLOGY - GENERAL ORDERABLES Final Result [facility] Department [place] [address] * Basic metabolic panel (04/10/2023 4:50 PM APPLICATION ARCHITECT MANAGER) Sodium 144 135 - 145 mmol/L [facility] Potassium, pl 3.5 3.3 - 4.9 mmol/L [facility] Chloride 103 97 - 110 mmol/L [facility] CO2 29 22 - 32 mmol/L [facility] Anion gap 12 2 - 15 mmol/L [facility] BUN 10 6 - 25 mg/dL [facility] Creatinine 0.81 0.60 - 1.10 mg/dL [facility] Glucose 79 70 - 199 mg/dL [facility] Comment: Interpretive Data Fasting glucose >/= [...] 2022. Calcium 9.6 8.5 - 10.3 mg/dL [facility] Blood 04/10/2023 4:50 PM APPLICATION ARCHITECT MANAGER 04/10/2023 5:09 PM APPLICATION ARCHITECT MANAGER Andrei Ambrocio MD LAB BLOOD ORDERABLE S Final Result Performing Organization Address City/[facility]/ZIP Co de Phone Number [facility] Department [place] [address] * (ABNORMAL) CBC with auto differential (04/10/2023 4:50 PM APPLICATION ARCHITECT MANAGER) WBC 11.3(H) 3.8 - 9.9 K/cumm [facility] Hgb 13.8 11.9 - 15.5 g/dL [facility] Comment: Interpretive Data A reference range for this assay has not been established for patients with an unknown legal sex. Please refer to the laboratory test catalog for established sex-specific reference intervals. Current interpretive data was last revised on 2023. Hct 40.7 35.6 - 45.5 % [facility] Comment: Interpretive Data A reference range for this assay has not been established for patients with an unknown legal sex. Please refer to the laboratory test catalog for established sex-specific reference intervals. Current interpretive data was last revised on 2023. Plt 309 150 - 400 K/cumm [facility] MPV 12.0 9.1 - 12.3 fL [facility] RBC 4.64 3.90 - 5.20 M/cumm [facility] Comment: Interpretive Data A reference range for this assay has not been established for patients with an unknown legal sex. Please refer to the laboratory test catalog for established sex-specific reference intervals. Current interpretive data was last revised on 2023. MCV 87.7 81.3 - 96.4 fL [facility] MCH 29.7 27.1 - 33.3 pg [facility] MCHC 33.9 32.3 - 35.7 g/dL [facility] RDW CV 11.9 11.1 - 14.9 % [facility] RDW SD 38.6 35.7 - 48.1 fL [facility] NRBC abs 0.00 0.00 - 0.01 K/cumm [facility] Blood 04/10/2023 4:50 PM APPLICATION ARCHITECT MANAGER 04/10/2023 5:09 PM APPLICATION ARCHITECT MANAGER us Andrei Ambrocio MD LAB BLOOD ORDERABLE S Final Result [facility] [place] [address] * POCT glucose (04/10/2023 3:20 PM APPLICATION ARCHITECT MANAGER) [facility] Glucose, POC 74 70 - 199 mg/dL [facility] Blood 04/10/2023 3:20 PM APPLICATION ARCHITECT MANAGER 04/10/2023 3:20 PM APPLICATION ARCHITECT MANAGER us Notinfile Unknown LAB POCT ORDERABLES - DEVICE F inal Result Performing Organization Address [email or web address] de Phone Number [facility] Department [place] [address] * ECG 12-LEAD (04/10/2023 2:27 PM APPLICATION ARCHITECT MANAGER) Narrative [facility] - 04/10/2023 2:27 PM APPLICATION ARCHITECT MANAGER Federico Clements MD ? 04/10/2023 ??2:28 PM [...] ORDERABLES Final Resul t Performing Organization Address [facility] [[email or web address]] de Phone Number [facility] * POCT glucose (04/10/2023 1:19 PM APPLICATION ARCHITECT MANAGER) Glucose, POC 102 70 - 199 mg/dL [facility] Blood 04/10/2023 1:19 PM APPLICATION ARCHITECT MANAGER 04/10/2023 1:19 PM APPLICATION ARCHITECT MANAGER Notinfile Unknown LAB POCT ORDERABLES - DEVICE F inal Result Performing Organization Address [facility] Co de Phone Number [facility] Department [place] [address] documented in this encounter Visit Diagnoses Diagnosis Hypoglycemia- Primary Hypoglycemia, unspecified Other migraine without status migrainosus, not intractable documented in this encounter Administered Medications Inactive Administered Medications - up to 3 most recent administrations Medication Order MAR Action Action Date Dose Rate Site acetaminophen (TYLENOL) tablet 1,000 mg 1,000 mg, oral, Once, On Thu04/10/23 at 1702, For 1 dose Given 04/10/2023 5:06 PM APPLICATION ARCHITECT MANAGER 1,000 mg diphenhydrAMINE (BENADRYL) tab/cap 25 mg 25 mg, oral, Once, On Thu04/10/23 at 1702, For 1 dose Given 04/10/2023 5:06 PM APPLICATION ARCHITECT MANAGER 25 mg droPERidol (INAPSINE) injection 1.25 mg 1.25 mg, intravenous, Administer over 5 Minutes, Once, On Thu04/10/23 at 1702, For 1 dose Given 04/10/2023 5:06 PM APPLICATION ARCHITECT MANAGER 1.25 mg ketorolac (TORADOL) 30 mg/mL (1 mL) injection 15 mg 15 mg, intravenous, Once, On Thu04/10/23 at 1702, For 1 dose, For Adult IV push, administer over 15 seconds Given 04/10/2023 5:06 PM APPLICATION ARCHITECT MANAGER 15 mg Lactated Ringer's (LR) bolus 1,000 mL 1,000 mL, intravenous, Once, On Thu04/10/23 at 1702, For 1 dose New Bag 04/10/2023 5:06 PM APPLICATION ARCHITECT MANAGER 1,000 mL documented in this encounter Active and Recently Administered Medications Times are shown in APPLICATION ARCHITECT MANAGER. Scheduled Medication Order 04/08/2023 04/09/2023 04/10/2023 acetaminophen [...] COVID: Suspected 04/10/2023 04/10/2023 04/10/2023 6:00 PM APPLICATION ARCHITECT MANAGER COVID19 04/10/2023 04/10/2023 04/20/2023 3:05 AM APPLICATION ARCHITECT MANAGER documented as of this encounter Care Teams Cartridge Assembling Machine Adjuster Relationship Specialty Start Date End Date Jessica Navarro NP [address] [place] [address] PCP - General 08/23/20 documented as of this encounter
--- OUTSIDE RECORDS SUMMARY | 2024-04-14 18:55 | XMS_ITS | Encounter Summary ---
Author Organization [facility] Healthcare Address [address] [place] [address] Care Team Providers Care Hand Inspector Name Role Phone Jessica Navarro NP Primary Care Provider + [phone] Ophelia Ashraf MD Unavailable [phone] Reason for Visit * Reason Comments OT Initial Eval * Consultation (Routine) - Pending Review Specialty Diagnoses / Procedures Referred By Jonas reeves Referred To Contact Occupational Therapy Diagnoses S/P carpal tunnel release Topher Dong PA [address] [place] [address] [address] [place] [address] Phone: tel: fax: Topher Dong PA [address] [place] [address] [address] [facility] [place] [address] Phone: tel: fax: Referral ID Status Reason Start Date Expiration Date Visits Requested Visits Authorized [id number] Pending Review Evaluate and Treat 07/03/2023 08/01/2024 24 9 Encounter Details Date Type Department Care Team (Late st Contact Info) Description 07/29/2023 7:00 AM CDT Therapy [facility] Occupational Therapy [address] [place] [id number] Garima Novak OT Carpal tunnel syndrome of [...] Industry Job Start Date Job End Date [employer] Not on file N ot on file Not on file documented as of this encounter Progress Notes * Garima Novak, OT - 07/29/2023 7:00 AM CDT Occupational Therapy Upper Extremity Evaluation Lilli Santos 1995 28 y.o. 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 These deficits are limiting her with ADL, IADL and work activities. She will benefit from skilled OT to address these areas and maximize functional pentecostalism of right UE. She did well withinitial [...] x a week up to 24 visits ([facility] after evaluation) Plan Details: Patient education, modalities, [...] 07/29/2023 documented in this encounter Care Teams Hand Inspector Relationship Specialty Start Date End Date Jessica Naavrro NP [address] [place] [address] PCP - General 08/23/20 Ophelia Ashraf MD [address] [facility] [address] [place] [address] Consulting Physician Endocrinology 04/15/23 documented as of this encounter
--- OUTSIDE RECORDS SUMMARY | 2024-04-14 18:55 | XMS_ITS | Encounter Summary ---
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 Not on file documented as of this encounter Miscellaneous Notes * Telephone Encounter - Caron Bernard MA - 04/13/2023 2:44 PM CST Changed patient's appointment, that is all she wanted TER FRAME TENDER * Telephone Encounter - Mirian Call - 04/13/2023 11:32 AM CST Patient left a msg asking for Caron to give her a call back [facility] Call [phone] TER FRAME TENDER documented in this encounter Plan of Treatment Not on file documented as of this encounter Visit Diagnoses Not on filedocumented in this encounter Additional Health Concerns Infection Onset Date Last Indicated Resolved Time COVID19 04/10/2023 04/10/2023 04/20/2023 3:05 AM TWISTER FRAME TENDER documented as of this encounter Care Teams Ski Topper Relationship Specialty Start Date End Date Melanie, Jessica Pinto NP [address] [place] [address] PCP - General 08/23/20 documented as of this encounter
--- OUTSIDE RECORDS SUMMARY | 2024-04-14 18:55 | XMS_ITS | Encounter Summary ---
Author Organization [facility] Healthcare Address [address] [place] [address] Care Team Providers Care Manufacturing Technologist Name Role Phone Melanie Jessica Pinto NP Primary Care Provider [phone] Ophelia Ashraf MD Unavailable [phone] Reason for Visit * Reason Onset Date Comments Surgery clearance 04/15/2023 Encounter Details Date Type Department Care Team (Late st Contact Info) Description 04/15/2023 Telephone [facility] Medical Group Orthopedics and Sports Medicine 4 [facility] [address] [place] [address] Yefri Burgess MD [address] [place] [address] [address] [address] [place] [address] Surgery clearance Social History Tobacco Use Types [...] 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 Clearance scanned into media. NTORY AUDITOR * Telephone Encounter - Ella Rebolledo MA - 04/15/2023 11:19 AM CST Clearance form has now been faxed to patient's Health Support Specialist. NTORY AUDITOR NTORY AUDITOR * Telephone Encounter - Odilia Leach - 04/15/2023 10:32 AM CST Patient called needing a surgery clearance form faxed over to her charhouse worker . Dr Ashraf. [phone] Please advise NTORY AUDITOR documented in this encounter Plan of Treatment Not on file documented as of this encounter Visit Diagnoses Not on filedocumented in this encounter Additional Health Concerns Infection Onset Date Last Indicated Resolved Time COVID19 04/10/2023 04/10/2023 04/20/2023 3:05 AM INVENTORY AUDITOR COVID: Recovered Comment:Added based on recent COVID infection. 04/20/2023 05/04/2023 07/19/2023 3:05 AM C DT documented as of this encounter Care Teams Manufacturing Technologist Relationship Specialty Start Date End Date Jessica Navarro NP [address] [place] [address] PCP - General 08/23/20 Ophelia Ashraf MD [address] [facility] [place] [address] Consulting Physician Endocrinology 04/15/23 documented as of this encounter"
--- OUTSIDE RECORDS SUMMARY | 2024-04-14 18:56 | XMS_ITS | Encounter Summary ---
Author Organization [facility] Healthcare Address [address] [place] [address] Care Team Providers Care Nurse Navigator Name Role Phone Jessica Navarro NP Primary Care Provider [phone] Reason for Visit * Reason Comments Abdominal Pain Vomiting Diarrhea Encounter Details Date Type Department Care Team (Late st Contact Info) Description 06/12/2021 10:50 AM DIRECTOR SECURITY RISK MANAGEMENT - 06/12/2021 1:03 PM DIRECTOR SECURITY RISK MANAGEMENT Emergency [facility] Emergency Department [address] [place] [address] Viral gastroenteritis (Primary Dx) Discharge Disposition: Discharge [...] Comments Blood Pressure 131/69 06/12/2021 12:57 PM DIRECTOR SECURITY RISK MANAGEMENT Pulse 72 06/12/2021 12:57 PM DIRECTOR SECURITY RISK MANAGEMENT Temperature 36.9 ??C (98.5 ??F) 06/12/2021 9:17 AM CS T Respiratory Rate 12 06/12/2021 12:57 PM DIRECTOR SECURITY RISK MANAGEMENT Oxygen Saturation 100% 06/12/2021 12:57 PM DIRECTOR SECURITY RISK MANAGEMENT Inhaled Oxygen Concentration - - Weight 93 kg (205 lb) 06/12/2021 9:17 AM DIRECTOR SECURITY RISK MANAGEMENT Height 160 cm (5' 3 ) 06/12/2021 9:17 AM DIRECTOR SECURITY RISK MANAGEMENT Body Mass Index 36.31 06/12/2021 9:17 AM DIRECTOR SECURITY RISK MANAGEMENT documented in this encounter Discharge Diagnoses Diagnosis [...] through Care Everywhere. * Gastroenteritis, Viral (Adult) (Rwandan) documented in this encounter Medications at Time [...] nausea or vomiting. 15 tablet 06/12/2021 3 [email or web address] Ultra Test strip CHECK BLOOD SUGAR 1-2 [...] this encounter ED Notes * Елена Galindo, MD PEDIATRIC ALLERGIST - 06/12/2021 10:59 AM CST HPI Chief [...] monitor. By: Елена Galindo NP Time: 06/12 1207 Comment: Pt able to keep crackers and [...] Mirian Villa MD at 06/12/2021 4:00 PM DIRECTOR SECURITY RISK MANAGEMENT CTOR SECURITY RISK MANAGEMENT CTOR SECURITY RISK MANAGEMENT Associated attestation - Mirian Villa MD - 06/12/2021 4:00 PM DIRECTOR SECURITY RISK MANAGEMENT ED Attestation Based on the medical record the care appears appropriate. * Linh Lagos RN - 06/12/2021 9:14 AM CST Pt to ED via POV with complaints of R sided abdominal pain/vomiting/diarrhea since Thursday. Pt's BS 116 OPERATOR LIGHTS CTOR SECURITY RISK MANAGEMENT CTOR SECURITY RISK MANAGEMENT documented in this encounter Plan of Treatment Not on file documented as of this encounter Procedures Procedure Name Priority Date/Time Associated Diagnosis Comments CT ABDOMEN PELVIS W CONTRAST ED 06/12/2021 11:22 AM DIRECTOR SECURITY RISK MANAGEMENT URINALYSIS AND REFLEX TO MICROSCOPIC AND CULTURE STAT 06/12/2021 10:19 AM DIRECTOR SECURITY RISK MANAGEMENT HCG, URINE, QUALITATIVE STAT 06/12/2021 10:19 AM DIRECTOR SECURITY RISK MANAGEMENT EGFR STAT 06/12/2021 10:01 AM DIRECTOR SECURITY RISK MANAGEMENT DIFFERENTIAL AUTO STAT 06/12/2021 10: 01 AM DIRECTOR SECURITY RISK MANAGEMENT CBC WITH AUTO DIFFERENTIAL STAT 06/12/2021 10:01 AM DIRECTOR SECURITY RISK MANAGEMENT COMPREHENSIVE METABOLIC PANEL STAT 06/12/2021 10:01 AM DIRECTOR SECURITY RISK MANAGEMENT documented in this encounter Results * CT Abdomen Pelvis W Contrast (06/12/2021 11:22 AM DIRECTOR SECURITY RISK MANAGEMENT) Anatomical Region Laterality Modality Body N/A Computed Tomogra phy 06/12/2021 11:2 8 AM DIRECTOR SECURITY RISK MANAGEMENT Narrative 06/12/2021 11:37 AM DIRECTOR SECURITY RISK MANAGEMENT EXAM DESCRIPTION: ?? CT ABDOMEN PELVIS W [...] AM T: ??06/12/2021 11:37 AM Report ID: [id number] Reading Location: ??[id number] Procedure Note Maurilio Edmonds MD - 06/12/2021 [...] Maurilio Edmonds M.D. MJ: RISHI Report ID: [id number] Reading Location: [id number] Елена Galindo MD PEDIATRIC ALLERGIST IMG CT PROCEDURES Final Resu lt * hCG, urine, qualitative (06/12/2021 10:19 AM DIRECTOR SECURITY RISK MANAGEMENT) HCG, ur Negative Negative [facility] ([place]) Urine 06/12/2021 10:1 9 AM DIRECTOR SECURITY RISK MANAGEMENT 06/12/2021 10:27 AM DIRECTOR SECURITY RISK MANAGEMENT Елена Galindo NP LAB URINE ORDERABLES Final R esult [facility] ([place]) 1 [facility] Department of Laboratories [place], [place] [id number] * Urinalysis reflex to microscopic and culture Urine (06/12/2021 10:19 AM DIRECTOR SECURITY RISK MANAGEMENT) Color, ur Yellow Yellow [facility] ([place]) [...] [facility] ([place]) Urine 06/12/2021 10:1 9 AM DIRECTOR SECURITY RISK MANAGEMENT 06/12/2021 10:27 AM DIRECTOR SECURITY RISK MANAGEMENT Narrative [facility] ([place]) - 06/12/2021 10:33 AM DIRECTOR SECURITY RISK MANAGEMENT ?? Urine pH is affected by diet, medications, systemic acid-base disturbances, and renal tubular function. ??pH may affect urinary stone formation. ??For example, urine pH below 6.0 may help reduce the tendency for calcium phosphate stones and pH greater than 6.0 may reduce the tendency for uric acid stone formation. Source: [facility] [employer]. Last revised 05-07-2017 Елена Galindo NP LAB MICROBIOLOGY - GENERAL O RDERABLES Final Result [facility] ([place]) 1 [facility] Department of Laboratories [place], [place] [id number] * eGFR (06/12/2021 10:01 AM DIRECTOR SECURITY RISK MANAGEMENT) eGFR 96 mL/min/1. 73 m2 [facility] [...] reviewed 2021. Blood 06/12/2021 10:0 1 AM DIRECTOR SECURITY RISK MANAGEMENT 06/12/2021 10:08 AM DIRECTOR SECURITY RISK MANAGEMENT us Елена Galindo NP LAB BLOOD ORDERABLES Final R esult [facility] ([place]) 1 [facility] Department [place] [address] * Differential, auto (06/12/2021 10:01 AM DIRECTOR SECURITY RISK MANAGEMENT) Neutrophil abs 5.7 1.7 - 6.5 K/cumm [...] on 2017. Blood 06/12/2021 10:0 1 AM DIRECTOR SECURITY RISK MANAGEMENT 06/12/2021 10:08 AM DIRECTOR SECURITY RISK MANAGEMENT us Елена Galindo MD PEDIATRIC ALLERGIST LAB BLOOD ORDERABLES Final R esult [facility] ([place]) 1 [facility] Department [place] [address] * (ABNORMAL) Comprehensive metabolic panel (06/12/2021 10:01 AM DIRECTOR SECURITY RISK MANAGEMENT) Sodium 142 135 - 145 mmol/L [facility] ([facility]) Potassium, pl 4.3 3.3 - 4.9 mmol/L [facility] Chloride 106 97 - 110 mmol/L [facility] ([place]) CO2 27 22 - 32 mmol/L [facility] ([place]) Anion gap 10 2 - 15 mmol/L [facility] ([place]) BUN 14 8 - 25 mg/dL [facility] ([place]) Creatinine 0.85 0.60 - 1.10 mg/dL [facility] ([place]) Glucose 118 70 - 199 mg/dL [facility] ([place]) Comment: Interpretive Data [...] 7.5 6.5 - 8.5 g/dL [facility] ([place]) Albumin 4.5 3.5 - 5.0 g/dL [facility] ([place]) Alk phos 74 40 - 130 Units/L [facility] ([place]) ALT 46(H) 7 - 45 Units/L [facility] ([place]) AST 25 10 - 45 Units/L [facility] ([place]) Blood 06/12/2021 10:0 1 AM DIRECTOR SECURITY RISK MANAGEMENT 06/12/2021 10:08 AM DIRECTOR SECURITY RISK MANAGEMENT us Елена Galindo NP LAB BLOOD ORDERABLES Final R esult [facility] ([place]) 1 [facility] Department [place] [address] * CBC with auto differential (06/12/2021 10:01 AM DIRECTOR SECURITY RISK MANAGEMENT) WBC 9.4 3.8 - 9.9 K/cumm [facility] [...] [facility] ([place]) Blood 06/12/2021 10:0 1 AM DIRECTOR SECURITY RISK MANAGEMENT 06/12/2021 10:08 AM DIRECTOR SECURITY RISK MANAGEMENT us Елена Galindo NP LAB BLOOD ORDERABLES Final R esult [facility] ([place]) 1 [facility] Department [place] [address] documented in this encounter Visit Diagnoses Diagnosis [...] 1 dose Contrast Given 06/12/2021 11:22 AM DIRECTOR SECURITY RISK MANAGEMENT 100 mL ondansetron (ZOFRAN) injection 4 mg 4 mg, intravenous, Administer over 2 Minutes, Once, On Thu06/12/21 at 1057, For 1 dose Given 06/12/2021 11:12 AM DIRECTOR SECURITY RISK MANAGEMENT 4 mg ondansetron (ZOFRAN) injection 4 mg 4 mg, intravenous, Administer over 2 Minutes, Once, On Thu06/12/21 at 1210, For 1 dose Given 06/12/2021 12:12 PM DIRECTOR SECURITY RISK MANAGEMENT 4 mg sodium chloride 0.9% bolus 1,000 mL 1,000 mL, intravenous, at 1,000 mL/hr, Administer over 1 Hours, Once, On Thu06/12/21 at 1057, For 1 dose New Bag 06/12/2021 11:12 AM DIRECTOR SECURITY RISK MANAGEMENT 1,000 mL 1000 mL/hr documented in this encounter Discontinued Medications Medication Sig Discontinue Reason Start Date End Da te ondansetron ODT (ZOFRAN-ODT) 4 mg disintegrating tablet Dissolve 1 tablet oral every 4 hours as needed for nausea or vomiting. 08/23/2020 06/12/2021 documented as of this encounter Active and Recently Administered Medications Times are shown in DIRECTOR SECURITY RISK MANAGEMENT. Scheduled Medication Order 06/10/2021 06/11/2021 06/12/2021 ondansetron [...] 06/12/2021 documented in this encounter Care Teams Nurse Navigator Relationship Specialty Start Date End Date Jessica Navarro NP [address] [place] [address] PCP - General 08/23/20 documented as of this encounter
--- OUTSIDE RECORDS SUMMARY | 2024-04-14 18:56 | XMS_ITS | Encounter Summary ---
Author Organization [facility] Medical Group Address [address] [facility] [address] [place] [address] Care Team Providers Care Operations Section Manager Name Role Phone Jessica Navarro NP Primary Care Provider Reason for Visit * Reason Comments Diabetes Type 2 Encounter Details Date Type Department Care Team (Late st Contact Info) Description 12/18/2022 2:00 PM CDT Office Visit [facility] Medical [facility] Diabetes Endocrine Care of [address] [place] [address] Ophelia Ashraf MD [address] [place] [address] [address] [place], [place] [id number] Type 2 diabetes mellitus with hyperglycemia, with long-term current use of insulin ([facility]) (HCC) (Primary Dx) Social History Tobacco [...] 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 N ot on [...] hyperglycemia, with long-term current use of insulin ([facility]) ([facility]) (E11.65, Z79.4) (Primary) Assessment & Plan: [...] complication, without long-term current useof insulin (CMS/HCC) ([facility]) Diagnosed in 2019 Started insulin in [...] hyperglycemia, with long-term current use of insulin ([facility]) ([facility]) POCT GLUCOSE Routine 12/18/2022 1:27 PM CDT Type 2 diabetes mellitus with hyperglycemia, with long-term current use of insulin ([facility]) ([facility]) documented in this encounter Results * (ABNORMAL) POCT hemoglobin A1c (12/18/2022 1:27 PM CDT) Hemoglobin A1C, POC 9.8 % Blood 12/18/2022 1:27 PM CDT Ophelia Ashraf MD POINT OF CARE TEST ORDERABLES Final Result * POCT glucose (12/18/2022 1:27 PM CDT) Glucose Blood, POC 226 mg/dL Blood 12/18/2022 1:27 PM CDT Ophelia Ashraf MD POINT OF CARE TEST ORDERABLES Final Result documented in this encounter Visit Diagnoses Diagnosis Type 2 diabetes mellitus with hyperglycemia, with long-term current use of insulin (HCC)- Primary documented in this encounter Care Teams Operations Section Manager Relationship Specialty Start Date End Date Melanie, Jessica Pinto NP [address] [place] [address] PCP - General 08/23/20 documented as of this encounter
--- OUTSIDE RECORDS SUMMARY | 2024-04-14 18:56 | XMS_ITS | Encounter Summary ---
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 Clearance scanned into media. MOMETER REPAIRER * Telephone Encounter - Ting Bearden ATC - 08/18/2022 9:05 AM CDT Surgery Clearance Checklist: [x] PCP: Jessica Navarro (may be getting different PCP) [] Cardiology: [x] Endocrinology: [place] [] Pulmonology: [] Neurology: [] Other: Blood Thinner: [] Yes Name of medication: [x] No Is patient a Diabetic: [x] Yes [] No Preferred Outpatient Physical Therapy location: [facility] Reviewed with patient surgery clearance requirements that [...] arise. Labs are to be completed at: [facility] to Handle d/t TBD status. Medications [...] COVID: Suspected 04/10/2023 04/10/2023 04/10/2023 6:00 PM DYNAMOMETER REPAIRER COVID19 04/10/2023 04/10/2023 04/20/2023 3:05 AM DYNAMOMETER REPAIRER documented as of this encounter Care Teams Group Worker Relationship Specialty Start Date End Date Navarro, Jessica Pinto NP [address] [place] [id number] PCP - General 08/23/20 Ophelia Ashraf MD [address] [facility] [address] [place] [address] Consulting Physician Endocrinology 04/15/23 documented as of this encounter
--- OUTSIDE RECORDS SUMMARY | 2024-04-14 18:56 | XMS_ITS | Encounter Summary ---
Author Organization 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 ??Minority populations were underrepresented and children were not included. ?? (Diabetes Care 31:8520-6265, 2008). ??The eAG is not equivalent to a fasting glucose. Blood 07/02/2022 9:30 AM WINEMAKER 07/02/2022 4:43 PM WINEMAKER Narrative [facility] - 07/02/2022 5:19 PM WINEMAKER Pre-op testing [facility]her [facility] LAB BLOOD ORDERABLES Final Result [facility] [address] [address] Department [place] [address] documented in this encounter Visit Diagnoses Diagnosis Pre-op testing Unspecified pre-operative examination documented in this encounter Care Teams Merchant Seaman Relationship Specialty Start Date End Date Navarro, Jessica Pinto NP [address] [place] [address] PCP - General 08/23/20 documented as of this encounter
--- OUTSIDE RECORDS SUMMARY | 2024-04-14 18:56 | XMS_ITS | Encounter Summary ---
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
--- OUTSIDE RECORDS SUMMARY | 2024-04-14 18:56 | XMS_ITS | Encounter Summary ---
Author Organization [facility] Healthcare Address [address] [place] [address] Care Team Providers Care Training And Development Manager Name Role Phone Jessica Navarro NP Primary Care Provider [phone] Encounter Details Date Type Department Care Team (Late st Contact Info) Description 06/25/2021 Documentation [facility] Physical Therapy [address] [place] [address] Seema Oakley, PT Social History Tobacco Use [...] 03/06/21 appointment. Goals not addressed. D/C PT. TING PRESSMAN documented in this encounter Plan of Treatment Not on file documented as of this encounter Visit Diagnoses Not on filedocumented in this encounter Care Teams Training And Development Manager Relationship Specialty Start Date End Date Melanie, Jessica Pinto NP [address] [place] [address] PCP - General 08/23/20 documented as of this encounter
--- OUTSIDE RECORDS SUMMARY | 2024-04-14 18:56 | XMS_ITS | Encounter Summary ---
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 73 m2 ILDA ARGUELLES [...] ORDERABLES Final Res ult Performing Organization Address City/[facility]/ZIP Co de Phone Number SYDNIELENY ARGUELLES ([place]) [address] [place] [address] [employer] [place] [address] * (ABNORMAL) C-peptide (09/02/2022 11:00 AM CDT) C-peptide 5.34(H) 1.10 - 4.40 ng/mL ILDA ARGUELLES ([place]) Comment:Testing performed by : , 1 [place]., [address] Blood 09/02/2022 11:0 0 AM CDT 09/02/2022 11:09 PM CDT Ophelia Ashraf MD LAB BLOOD ORDERABLES Final Res ult ILDA ARGUELLES ([place]) 1 [facility] Department [place] [address] * Albumin Creatinine Ratio, Urine (09/02/2022 11:00 AM CDT) Albumin Ur <12.0 mg/L ILDA AM H ([place]) Comment: Interpretive Data No reference range established. Current interpretive data was last revised 2018. Testing performed by: [facility], [address] [place] [address]., [id number] Creatinine Ur 139.4 mg/dL [facility] ([place]) Comment: Interpretive Data No reference range established. Current interpretive data was last revised 2018. Testing performed by: [facility], [address] [place] [address]., [address] Albumin Creatinine Ratio, Ur <9 1 - 29 mg/g [facility] ([place]) Comment:Testing performed by : [facility], [address] [place] [address]., [address] Urine 09/02/2022 11:0 0 AM CDT 09/02/2022 7:30 PM CDT Ophelia Ashraf MD LAB URINE ORDERABLES Final Res ult [facility] ([place]) 1 [facility] Department [place] [address] * (ABNORMAL) Basic metabolic panel (09/02/2022 11:00 AM CDT) Sodium 137 135 - 145 mmol/L [facility] ([place]) Potassium, pl 4.3 3.3 - 4.9 mmol/L [facility] ([place]) Chloride 102 97 - 110 mmol/L [facility] ([place]) CO2 26 22 - 32 mmol/L [facility] ([place]) Anion gap 9 2 - 15 mmol/L [facility] ([place]) BUN 9 8 - 25 mg/dL [facility] ([place]) Creatinine 0.58(L) 0.60 - 1.10 mg/dL [facility] ([place]) Glucose 216(H) 70 - 199 mg/dL [facility] ([place]) Comment: Interpretive Data Fasting [...] Final Res ult ILDA ARGUELLES ([place]) 1 [facility] [place] [address] * (ABNORMAL) Lipid panel (09/02/2022 11:00 AM [...] ORDERABLES Final Res ult Performing Organization Address City/[facility]/ZIP Co de Phone Number ILDA ARGUELLES ([place]) 1 [facility] [place] [address] * TSH (09/02/2022 11:00 AM CDT) Thyroid Stimulating Hormone 1.49 0.30 - 4.20 mcIUnit/mL ILDA ARGUELLES ([place]) Blood 09/02/2022 11:0 0 AM CDT 09/02/2022 1:24 PM CDT Ophelia Ashraf MD LAB BLOOD ORDERABLES Final Res ult SYDNIELENY ARGUELLES ([place]) 1 [facility] [place] [address] * T4, free (09/02/2022 11:00 AM CDT) Free T4 1.11 0.90 - 1.70 ng/dL ILDA ARGUELLES ([place]) Blood 09/02/2022 11:0 0 AM CDT 09/02/2022 1:24 PM CDT us Ophelia Ashraf MD LAB BLOOD ORDERABLES Final Res ult ILDA BLANE ([place]) 1 [facility] [place] [address] documented in this encounter Visit Diagnoses Diagnosis Type 2 diabetes mellitus with hyperglycemia, with long-term current use of insulin (HCC) documented in this encounter Care Teams Gynaecological Oncologist Relationship Specialty Start Date End Date Jessica Navarro NP [address] [place] [address] PCP - General 08/23/20 documented as of this encounter
--- OUTSIDE RECORDS SUMMARY | 2024-04-14 18:56 | XMS_ITS | Encounter Summary ---
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 * Concussion (Ghanaian) documented in this encounter Medications at Time [...] FOOD 03/11/2022 3 flash glucose scanning reader ([employer] Viviane 2 [place]ta[place] [facility] Use to monitor glucose levels, DX E11.65, [...] fall while at work (works at [employer]) at 6:00 a.m. this morning. She was [...] No new medicat ions. She has a [employer]elloY[employer] Viviane glucose sensor and glucose was in [...] hyperglycemia, with long-term current use of insulin ([facility]) (HCC) 05/12/2022 Benign thyroid cyst 04/14/2022 Acquired [...] Diagnosis Date Anxiety Asthma Depression Diabetes mellitus ([facility]) GERD (gastroesophageal reflux disease) Rheumatoid arthritis ([facility]) Thyroid disease Past Surgical History: Procedure Laterality [...] PM CDT) 09/05/2022 5:48 PM CDT Narrative [facility] - 09/06/2022 8:49 AM CDT Vent Rate: 73 bpm RR Interval: 813 msec MS Interval: 200 msec QRS Duration: 94 msec QT Interval: 381 msec QTC Interval: 407 msec P-R-T [place]: 27 - 2 - 16 degrees SINUS RHYTHM WITH SINUS ARRHYTHMIA NORMAL ECG No change from prior EKG Electronically Signed By: Giovanny Olguin MD us Jodee Hines MD ECG ORDERABLES Final Result [facility] * eGFR (09/05/2022 5:45 PM CDT) eGFR [...] F inal Result [facility] ([place]) 1 [facility] Department [place] [address] * (ABNORMAL) Differential, auto (09/05/2022 5:45 PM [...] MD LAB BLOOD ORDERABLES F inal Result [facility] ([place]) 1 [facility] Department [place] [address] * (ABNORMAL) Basic metabolic panel (09/05/2022 5:45 PM CDT) Sodium 136 135 - 145 mmol/L [facility] ([place]) Potassium, pl 4.4 3.3 - 4.9 mmol/L [facility] ([place]) Chloride 102 97 - 110 mmol/L [facility] ([place]) CO2 25 22 - 32 mmol/L [facility] ([place]) Anion gap 9 2 - 15 mmol/L [facility] ([place]) BUN 14 8 - 25 mg/dL [facility] ([place]) Creatinine 0.63 0.60 - [...] F inal Result [facility] ([place]) 1 [facility] Department [place] [address] * (ABNORMAL) CBC with auto differential (09/05/2022 [...] BLOOD ORDERABLES F inal Result ILDA ARGUELLES ([place]) 1 [facility] Department [place] [address] * CT Cervical Spine WO Contrast (09/05/2022 [...] PM T: ??09/05/2022 6:21 PM Report ID: [id number] Reading Location: ??[id number] Procedure Note Amarjit Vazquez MD - 09/05/2022 [...] Amarjit Vazquez M.D. AT: AT Report ID: [id number] Reading Location: [id number] Nelson Mcdonnell MD IMG CT PROCEDURES Final [...] PM T: ??09/05/2022 6:21 PM Report ID: [id number] Reading Location: ??[id number] Procedure Note Amarjit Vazquez MD - 09/05/2022 [...] Amarjit Vazquez M.D. AT: AT Report ID: [id number] Reading Location: [place] [address] Nelson Mcdonnell MD IMG CT PROCEDURES Final [...] RN) documented in this encounter Care Teams Spring Coiler Relationship Specialty Start Date End Date Jessica Navarro NP [address] [place] [address] PCP - General 08/23/20 documented as of this encounter
--- OUTSIDE RECORDS SUMMARY | 2024-04-14 18:56 | XMS_ITS | Encounter Summary ---
Author Organization [facility] Address [address] [facility] [address] [place] [address] Phone Care Team Providers Care Stem Crusher Name Role Phone Navarro, Jessica Pinto NP Primary Care Provider [phone] Reason for Referral * Consultation (Routine) - Closed Specialty Diagnoses / Procedures Referred By Jonas reeves Referred To Contact Plastic Surgery Diagnoses Angie Arita MD [address] [facility] [phone] [place] [address] Phone: tel: fax: [facility] (All Locations) Referral ID Status Reason Start Date Expiration Date V isits Requested Visits Authorized [id number] Closed Specialty Services Required 12/25/2021 01/24/2023 99 99 Question Answer Please select the performing region: [facility] (All Locations) [167] # of visits: 1 Reason for Visit * Reason Comments New Patient * Consultation (Routine) - Closed Specialty Diagnoses / Procedures Referred By Jonas reeves Referred To Contact Plastic Surgery Diagnoses Angie Arita MD [address] [facility] [phone] [place] [address] Phone: tel: fax: [facility] (All Locations) Referral ID Status Reason Start Date Expiration Date V isits Requested Visits Authorized [id number] Closed Specialty Services Required 12/25/2021 01/24/2023 99 99 Encounter Details Date Type Department Care Team (Late st Contact Info) Description 04/14/2022 3:30 PM INTELLIGENCE APPLICATIONS Office Visit [facility] Surgery [address] [place] [address] [address] [place] [address] Angie Randhawa MD [address] [facility] [phone] [place] [address] Macromastia (Primary Dx) Social History Tobacco Use [...] lb 9.6 oz) 04/14/2022 3:41 P M INTELLIGENCE APPLICATIONS Height 160 cm (5' 3 ) 04/14/2022 3:41 PM INTELLIGENCE APPLICATIONS Body Mass Index 31.81 04/14/2022 3:41 PM INTELLIGENCE APPLICATIONS documented in this encounter Progress Notes * [...] BBR just prior to 16th birthday - [facility] at the time; No major issues [...] elevated sugar - never in DKA; seeing Supervisor Rice Milling in April No BT Of note, has lost 30-40 lbs without trying. States appetite is poor. 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 Itmay contain typographical, grammatical, and/or syntax errors. LLIGENCE APPLICATIONS documented in this encounter Plan of Treatment [...] 3 added in this encounter Care Teams Stem Crusher Relationship Specialty Start Date End Date Jessica Navarro NP [address] [place] [address] PCP - General 08/23/20 documented as of this encounter
--- OUTSIDE RECORDS SUMMARY | 2024-04-14 18:56 | XMS_ITS | Encounter Summary ---
Author Organization [facility] Address [address] [address] Care Team Providers Care Nutrition Technician Name Role Phone Jessica Navarro NP Primary Care Provider Reason for Referral * Diagnostic Imaging (Routine) - Closed Specialty Diagnoses / Procedures Referred By Jonas reeves Referred To Contact Diagnoses Right wrist pain Procedures XR Wrist Right 1 View Topher Dong PA [address] [address] Phone: tel: fax: [facility] Referral ID Status Reason Start Date Expiration Date Visits Re quested Visits Authorized [id number] Closed 07/02/2022 08/01/2023 1 1 ITY IMPROVEMENT SPECIALIST Reason for Visit * Reason Comments Pain Encounter Details Date Type Department Care Team (Late st Contact Info) Description 07/02/2022 8:30 AM QUALITY IMPROVEMENT SPECIALIST Office Visit [facility] Orthopedic and Sports Medicine [address] [place] [phone] Topher Dong PA [address] [place] [address] Tenosynovitis, de Quervain (Primary Dx); Pre-op testing [...] 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 ot on file Not on file documented as of this encounter Last Filed Vital Signs Vital Sign Reading Time Taken Comments Blood Pressure 116/76 07/02/2022 8:39 AM QUALITY IMPROVEMENT SPECIALIST Pulse 89 07/02/2022 8:39 AM QUALITY IMPROVEMENT SPECIALIST Temperature - - Respiratory Rate - - Oxygen Saturation - - Inhaled Oxygen Concentration - - Weight 82.2 kg (181 lb 1.9 oz) 07/02/2022 8:39 A M QUALITY IMPROVEMENT SPECIALIST Height 162.6 cm (5' 4 ) 07/02/2022 8:39 AM QUALITY IMPROVEMENT SPECIALIST Body Mass Index 31.09 07/02/2022 8:39 AM QUALITY IMPROVEMENT SPECIALIST documented in this encounter Progress Notes * [...] the flexor retinaculum. Clinical correlation is recommended. ITY IMPROVEMENT SPECIALIST EXAM DESCRIPTION: XR WRIST 3 OR MORE [...] Yefri Goodman M.D. AG: KECIA Report ID: [id number] Reading Location: [id number] Assessment/Plan Lilli was seen today for pain. [...] use of voice recognition software. MJ Madsen ITY IMPROVEMENT SPECIALIST documented in this encounter Plan of Treatment Not on file documented as of this encounter Procedures Procedure Name Priority Date/Time Associated Diagnosis Comments XR WRIST RIGHT 1 VIEW Schedule Routine, Read Routine (OP Routine) 07/02/2022 8:30 AM QUALITY IMPROVEMENT SPECIALIST Tenosynovitis, de Quervain documented in this encounter Results * (ABNORMAL) Hemoglobin A1c (07/02/2022 9:30 AM QUALITY IMPROVEMENT SPECIALIST) Hgb A1C 8.1(H) 4.0 - 5.6 % ILDA FIERRO Estimated Average Glucose 186 mg/dL ILDA FIERRO Comment: The ADA recommends reporting an estimated Average Glucose (eAG) with all Hemoglobin A1c results using the equation derived from a study of 507 normal and diabetic adults. ??Minority populations were underrepresented and children were not included. ?? (Diabetes Care 31:1743-9418, 2008). ??The eAG is not equivalent to a fasting glucose. Blood 07/02/2022 9:30 AM QUALITY IMPROVEMENT SPECIALIST 07/02/2022 4:43 PM QUALITY IMPROVEMENT SPECIALIST Narrative ILDA FIERRO - 07/02/2022 5:19 PM QUALITY IMPROVEMENT SPECIALIST Pre-op testing Topehr [facility] LAB BLOOD ORDERABLES Final Result ILDA [address] Department [place] [address] * XR Wrist Right 1 View (07/02/2022 8:30 AM QUALITY IMPROVEMENT SPECIALIST) Anatomical Region Laterality Modality Wrist Right Digital Radiogra phy Narrative 07/02/2022 8:51 AM QUALITY IMPROVEMENT SPECIALIST Normal-appearing carpal tunnel view is noted. Topher BARKER IMG XR PROCEDURES Final Res ult documented in this encounter Visit Diagnoses Diagnosis Tenosynovitis, de Quervain- Primary Radial styloid tenosynovitis Pre-op testing Unspecified pre-operative examination Pre-op testing Unspecified pre-operative examination documented in this encounter Care Teams Nutrition Technician Relationship Specialty Start Date End Date Jessica Navarro NP [address] [place] [address] PCP - General 08/23/20 documented as of this encounter
--- OUTSIDE RECORDS SUMMARY | 2024-04-14 18:56 | XMS_ITS | Encounter Summary ---
Author Organization [facility] Address [address] [address] Care Team Providers Care Pearl Hand Name Role Phone Jessica Navarro NP Primary Care Provider Reason for Visit * Diagnostic Imaging (Routine) - Closed Specialty Diagnoses / Procedures Referred By Jonas reeves Referred To Contact Diagnoses Right wrist pain Procedures XR Wrist Right 1 View Topher Dong PA [address] [place] [address] [address] [place] [address] Phone: tel: fax: [facility] Referral ID Status Reason Start Date Expiration Date Visits Re quested Visits Authorized [id number] Closed 07/02/2022 08/01/2023 1 1 Encounter Details Date Type Department Care Team (Late st Contact Info) Description 07/02/2022 8:30 AM MEDICAL CASH POSTER Ancillary Procedure [facility] Imaging at [address] [phone] Social History Tobacco Use Types Packs/Day Years [...] 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 us Topher BARKER IMG XR PROCEDURES Final Res ult documented in this encounter Visit Diagnoses Not on filedocumented in this encounter Care Teams Pearl Hand Relationship Specialty Start Date End Date Jessica Navarro NP [address] [place] [address] PCP - General 08/23/20 documented as of this encounter
--- OUTSIDE RECORDS SUMMARY | 2024-04-14 18:56 | XMS_ITS | Encounter Summary ---
Author Organization [facility] Address [address] [facility] [address] [place] [address] Care Team Providers Care Operations Intelligence Superintendent Name Role Phone Jessica Navarro NP Primary Care Provider Encounter Details Date Type Department Care Team (Late st Contact Info) Description 05/29/2022 Telephone [facility] Diabetes Endocrine Care of [address] [place] [address] Michaela Block Social History Tobacco [...] appt. Up after speaking to her PCP. TIC MAINTENANCE TECHNICIAN * Telephone Encounter - Michaela Block - 05/29/2022 3:56 PM CST Pt would like someone to call her to discuss her blood sugars. Please call pt at [phone] TIC MAINTENANCE TECHNICIAN documented in this encounter Plan of Treatment Not on file documented as of this encounter Visit Diagnoses Not on filedocumented in this encounter Care Teams Operations Intelligence Superintendent Relationship Specialty Start Date End Date Navarro, Jessica Pinto NP [address] [place] [address] PCP - General 08/23/20 documented as of this encounter
--- OUTSIDE RECORDS SUMMARY | 2024-04-14 18:56 | XMS_ITS | Encounter Summary ---
Author Organization [facility] Address [address] [facility] [address] [place] [address] Care Team Providers Care Quality Control Clerk Name Role Phone Jessica Navarro NP Primary Care Provider Encounter Details Date Type Department Care Team (Late st Contact Info) Description 05/20/2022 Telephone [facility] Diabetes Endocrine Care of [address] [place] [phone] Ophelia Ashraf MD [address] [place] [address] [address] [place] [address] Social History Tobacco Use Types [...] through Cover My Meds. Waiting for response OR ABAP DEVELOPER * Telephone Encounter - Caron Benrard MA - 05/23/2022 2:19 PM CST Viviane 2 senors and reader ordered Patient is aware. OR ABAP DEVELOPER * Telephone Encounter - Caron Bernard MA [...] addressed. Please advise when you are back. OR ABAP DEVELOPER documented in this encounter Plan of Treatment Not on file documented as of this encounter Visit Diagnoses Not on filedocumented in this encounter Care Teams Quality Control Clerk Relationship Specialty Start Date End Date Jessica Navarro NP [address] [place] [address] PCP - General 08/23/20 documented as of this encounter
--- OUTSIDE RECORDS SUMMARY | 2024-04-14 18:56 | XMS_ITS | Encounter Summary ---
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 FABRICATOR * Telephone Encounter - Delaney Morgan ATC - 07/04/2022 1:29 PM CST ----- Message from MJ Madsen sent at 07/03/2022 3:21 PM LEAD FABRICATOR ----- Based on her improved A1C you can have her scheduled with Dr Saba sanchez available and we will retest her A1C at that time. And I believe she will be in range FABRICATOR documented in this encounter Plan of Treatment Not on file documented as of this encounter Visit Diagnoses Not on filedocumented in this encounter Care Teams Receiving Inspector Relationship Specialty Start Date End Date Melanie, Jessica Pinto NP [address] [place] [address] PCP - General 08/23/20 documented as of this encounter
--- OUTSIDE RECORDS SUMMARY | 2024-04-14 18:56 | XMS_ITS | Encounter Summary ---
Author Organization [facility] Healthcare Address [address] [place] [address] Care Team Providers Care Coiled Tubing Supervisor Name Role Phone Jessica Navarro NP Primary Care Provider Reason for Visit * Reason Comments Hyperglycemia Encounter Details Date Type Department Care Team (Late st Contact Info) Description 01/03/2022 1:46 AM CDT - 01/03/2022 3:40 AM CDT Emergency [facility] Emergency Department [address] [place] [address] Dennis Escalante MD 1 [place] [address] Hyperglycemia (Primary Dx) Discharge Disposition: Discharge to [...] Type 2 diabetes mellitus with hyperglycemia (CMS/HCC) ([facility]) - TYPE 2 DIABETES MELLITUS WITH HYPERGLYCEMIA [...] mellitus - FAMILY HISTORY OF DIABETES MELLITUS salvage determiner (current) use of oral hypoglycemic drugs - DUMP OPERATOR (CURRENT) USE OF ORAL HYPOGLYCEMIC DRUGS Other fci (current) drug therapy - OTHER HALFWAY (CURRENT) DRUG THERAPY documented in this encounter Discharge Instructions * Attachments The following attachments cannot be sent through Care Everywhere. * Diabetes with High Blood Sugar (Cymro) documented in this encounter Medications at Time [...] normal. Psychiatric: Thought Content: Thought content normal. [facility] ED Course as of 01/03/22331 Time: 01/03 [...] DEVICE Final Result ILDA [facility] (LAMINE) 1 [facility] [place] [address] * (ABNORMAL) Urinalysis reflex to microscopic and [...] UA and culture not met. ILDA BLANE (MILO) Urine 01/03/2022 1:02 AM CDT 01/03/2022 1:04 [...] for uric acid stone formation. Source: Fritz Ovonyx. Last revised 05-07-2017 us Dennis Escalante MD LAB MICROBIOLOGY - GENERAL OR DERABLES Final Result ILDA ARGUELLES (LAMINE) 1 [facility] [place] [address] * eGFR (01/03/2022 12:43 AM CDT) eGFR [...] Final Re sult C[facility]ER [facility] (LAMINE) 1 [facility] [place] [address] * (ABNORMAL) Differential, auto (01/03/2022 12:43 AM [...] Final Re sult SYDNIENER [facility] (LAMINE) 1 [facility] [place] [address] * (ABNORMAL) CBC with auto differential (01/03/2022 [...] RDW CV 11.4 11.1 - 14.9 % [facility] ([place]) RDW SD 36.4 35.7 - 48.[address] [facility] ([place]AM[place]) NRBC abs 0.00 0.00 - 0.01 K/cumm [facility] (LAMINE) Blood 01/03/2022 12:4 3 AM CDT 01/03/2022 12:49 AM CDT us Dennis Escalante MD LAB BLOOD ORDERABLES Final Re sult [facility] (LAMINE) 1 [facility] [place] [address] * (ABNORMAL) Comprehensive metabolic panel (01/03/2022 12:43 AM CDT) Sodium 129(L) 135 - 145 mmol/L [facility] ([place]) Potassium, pl 4.2 3.3 - 4.9 mmol/L [facility] ([place]AM[place]) Chloride 92(L) 97 - 110 mmol/L [facility] (LAMINE) CO2 24 22 - 32 mmol/L [facility] (LAMINE) Anion gap 14 2 - 15 mmol/L [facility] (LAMINE) BUN 9 8 - 25 mg/dL [facility] (AL[place]INE) Creatinine 0.68 0.60 - 1.10 mg/dL [facility] ([place]AMINE) Glucose 590(C) 70 - 199 mg/dL [facility] (LAMINE) Comment: Critical Result called [...] 2017. Calcium 10.1 8.5 - 10.3 mg/dL [facility] (LAM[place]) Bilirubin, total 0.4 0.1 - [...] BLOOD ORDERABLES Final Re sult ILDA ARGUELLES (MILO) 1 [facility] [email or web address] [address] * (ABNORMAL) POCT glucose (01/03/2022 12:37 AM CDT) [facility] Glucose, POC 590(C) 71 - 98 mg/dL [facility] (LAMINE) Comment:Glu2: RN/ Notified Blood 01/03/2022 12:3 7 AM CDT 01/03/2022 12:37 AM CDT us Notinfile Unknown LAB POCT ORDERABLES - DEVICE F inal Result Performing Organization Address City/[facility]/ZIP Co de Phone Number ILDA [facility] (MILO) 1 [facility] [email or web address] [address] documented in this encounter Visit Diagnoses Diagnosis [...] 01/03/2022 documented in this encounter Care Teams Coiled Tubing Supervisor Relationship Specialty Start Date End Date Jessica Navarro NP [address] [place] [address] PCP - General 08/23/20 documented as of this encounter
--- OUTSIDE RECORDS SUMMARY | 2024-04-14 18:56 | XMS_ITS | Encounter Summary ---
Author Organization [facility] Address [address] 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
--- OUTSIDE RECORDS SUMMARY | 2024-04-14 18:56 | XMS_ITS | Encounter Summary ---
Author Organization [facility] Healthcare Address [address] [place] [address] Care Team Providers Care Explosive Ordnance Technician Name Role Phone Jessica Navarro NP Primary Care Provider Reason for Visit * Reason Comments Headache Hyperglycemia Encounter Details Date Type Department Care Team (Late st Contact Info) Description 11/04/2021 12:45 AM CDT - 11/04/2021 2:27 AM CDT Emergency [facility] Emergency Department 1 [place] [address] Harvey Venegas MD 1 [place] [address] Other migraine without status migrainosus, not intractable [...] 2 diabetes mellitus with hyperglycemia (CMS/HCC) ([facility]) - TYPE 2 DIABETES MELLITUS WITH HYPERGLYCEMIA [...] BODY MASS INDEX [BMI] 37.0-37.9, ADULT Other senior living (current) drug therapy - OTHER CALIBRATION TECHNICIAN (CURRENT) DRUG THERAPY termite control technician (current) use of oral hypoglycemic drugs - CALIBRATION TECHNICIAN (CURRENT) USE OF ORAL HYPOGLYCEMIC DRUGS documented [...] BLOOD ORDERABLE S Final Result ILDA ARGUELLES (CONDON) 1 [facility] Department [place] [address] * (ABNORMAL) Differential, auto (11/04/2021 12:37 AM CDT) Neutrophil abs 6.5 1.7 - 6.5 K/cumm [facility] (LAMINE) Imm gran abs 0.1 0.0 - 0.1 K/cumm [facility] ([place]DON) Lymphocyte abs 4.4(H) 0.8 - 3.3 K/cumm [facility] ([place]DON) Monocyte abs 0.6 0.2 - 0.8 K/cumm [facility] ([place]) Eosinophil abs 0.3 0.0 - 0.5 K/cumm [facility] ([place]DON) Basophil abs 0.1 0.0 - 0.1 K/cumm [facility] (LAMINE) Neutrophil pct 54.4 % [facility] R [facility] (CONDON) Comment: Interpretive Data Percent cell count reference ranges are not reported, since discordance with absolute values may lead to misinterpretation of CBC data. Current Interpretive Data was last revised on 2017. Imm gran pct 0.4 % [facility] (CONDON) Comment: Interpretive Data Percent cell count reference [...] MD LAB BLOOD ORDERABLE S Final Result [facility] (LAMINE) 1 [facility] Department [place] [address] * (ABNORMAL) Comprehensive metabolic panel (11/04/2021 12:37 [...] S Final Result [facility] (LAMINE) 1 [facility] Department [place] [address] * (ABNORMAL) CBC with auto differential (11/04/2021 [...] 11.4 11.1 - 14.9 % [facility] (LAMIEN) RDW SD 35.9 35.7 - 48.1 fL [facility] (LAMINE) NRBC abs 0.00 0.00 - 0.01 K/cumm [facility] (LAMINE) Blood 11/04/2021 12:3 7 AM CDT 11/04/2021 12:41 AM CDT us Harvey Venegas MD LAB BLOOD ORDERABLE S Final Result Performing Organization Address [facility] Co de Phone Number ILDA [facility] (LAMINE) 1 [facility] [place] [address] * hCG, urine, qualitative (11/03/2021 11:00 PM CDT) HCG, ur Negative Negative [facility] (LAMINE) Urine 11/03/2021 11:0 0 PM CDT 11/04/2021 12:59 AM CDT us Harvey Venegas MD LAB URINE ORDERABLE S Final Result Performing Organization Address [facility] de Phone Number [facility] (LAMINE) 1 [facility] [place] [address] * (ABNORMAL) Urinalysis, microscopic only (11/03/2021 11:00 PM CDT) WBC, ur 0-5 0 - 5 /HPF [facility] (LAMINE) RBC, ur 0-2 0 - 2 /HPF [facility] (LAMINE) Epithelial cells, squamous, ur 1-5 0 - 5 /HPF [facility] (LAMINE) Bacteria, ur Trace(A) [facility] (LAMINE) Mucous, ur Present(A) CERNER A (LAMINE) Culture Reflex Comment Reflex conditions for urine culture (WBC >10) not met. ILDA [facility] (LAMINE) Urine 11/03/2021 11:0 0 PM CDT 11/03/2021 11:06 PM CDT Harvey Venegas MD LAB URINE ORDERABLE S Final Result Performing Organization Address [facility] Co de Phone Number ILDA [facility] (LAMINE) 1 [facility] Department [place] [address] * (ABNORMAL) Urinalysis reflex to microscopic and [...] tendency for uric acid stone formation. Source: [employer]ega[employer]. Last revised 05-07-2017 us Harvey Venegas MD LAB MICROBIOLOGY - GENERAL ORDERABLES Final Result ILDA ARGUELLES (LAMINE) 1 [facility] Department [place] [address] documented in this encounter Visit Diagnoses Diagnosis [...] RN) documented in this encounter Care Teams Explosive Ordnance Technician Relationship Specialty Start Date End Date Melanie, Jessica Pinto NP [address] [place] [address] PCP - General 08/23/20 documented as of this encounter
--- OUTSIDE RECORDS SUMMARY | 2024-04-14 18:56 | XMS_ITS | Encounter Summary ---
Author Organization [facility] Address [address] [facility] [address] [place] [address] Phone Care Team Providers Care Neonatal Critical Care Nurse Name Role Phone Jessica Navarro NP Primary Care Provider [phone] Reason for Visit * Reason Onset Date Comments Injections 04/08/2021 pain diary Encounter Details Date Type Department Care Team (Late st Contact Info) Description 04/23/2021 Telephone [facility] Orthopaedic Surgery [address] [place] [address] Mia Wilson NP [address] [facility] [address] [address] [place], [place] [id number] Injections (pain diary ) Social History Tobacco [...] AM CST Sent message to Lilli via [employer], she will continue her HEP & will follow up as needed. D REPRESENTATIVE/HEALTH EDUCATION * Telephone Encounter - Mia Wilson NP - 04/23/2021 9:19 AM CST Good results. Continue HEP. D REPRESENTATIVE/HEALTH EDUCATION * Telephone Encounter - Aneta Krueger - [...] you happy with your improvement level? yes D REPRESENTATIVE/HEALTH EDUCATION documented in this encounter Plan of Treatment Not on file documented as of this encounter Visit Diagnoses Not on filedocumented in this encounter Care Teams Neonatal Critical Care Nurse Relationship Specialty Start Date End Date Jessica Navarro NP [address] [place] [address] PCP - General 08/23/20 documented as of this encounter
--- OUTSIDE RECORDS SUMMARY | 2024-04-14 18:56 | XMS_ITS | Encounter Summary ---
Author Organization [facility] Group Address [address] [facility] [address] [place] [address] Care Team Providers Care Rn Cardiovascular Name Role Phone Jessica Navarro NP Primary Care Provider [phone] Reason for Visit * Reason Comments New Patient DM type 2 * Consultation (Routine) - Closed Specialty Diagnoses / Procedures Referred By Jonas reeves Referred To Contact Endocrinology Diagnoses Type 2 diabetes mellitus without complication, unspecified whether moth exterminator insulin use (HCC) Jessica Navarro NP [address] [place] [address] Phone: tel: fax: Ophelia Ashraf MD [address] [place] [address] [address] [place] [address] Phone: tel: fax: Referral ID Status Reason Start Date Expiration Date V isits Requested Visits Authorized [id number] Closed Specialty Services Required 03/26/2022 04/25/2023 6 6 Encounter Details Date Type Department Care Team (Late st Contact Info) Description 05/12/2022 1:30 PM AUTO PAINTER Office Visit [facility] Diabetes Endocrine Care of [address] [place] [phone] Ophelia Ashraf MD [address] [place] [address] [address] [place] [address] Type 2 diabetes mellitus with hyperglycemia, with [...] Comments Blood Pressure 116/62 05/12/2022 1:32 PM AUTO PAINTER Pulse - - Temperature - - Respiratory Rate - - Oxygen Saturation - - Inhaled Oxygen Concentration - - Weight 83.2 kg (183 lb 6.4 oz) 05/12/2022 1:32 P M AUTO PAINTER Height 162.6 cm (5' 4 ) 05/12/2022 1:32 PM AUTO PAINTER Body Mass Index 31.48 05/12/2022 1:32 PM AUTO PAINTER documented in this encounter Ordered Prescriptions Prescription [...] hyperglycemia, with long-term current use of insulin ([facility]) ([facility]) (E11.65, Z79.4) (Primary) Assessment & [...] Use 3 per day for insulin pen PAINTER documented in this encounter Miscellaneous Notes * Assessment & Plan Note - Ophelia Ashraf MD - 05/12/2022 2:09 PM AUTO PAINTER Associated Problem(s): Type 2 diabetes mellitus without complication, without long-term current useof insulin ([facility]) ([facility]) Diagnosed in 2019 Started insulin [...] low sugars. Ophthalmology exam on regular basis. PAINTER documented in this encounter Plan of Treatment Not on file documented as of this encounter Procedures Procedure Name Priority Date/Time Associated Diagnosis Comments POCT HEMOGLOBIN A1C Routine 05/12/2022 1 :47 PM AUTO PAINTER Type 2 diabetes mellitus with hyperglycemia, with long-term current use of insulin ([facility]) ([facility]) documented in this encounter Results * (ABNORMAL) POCT hemoglobin A1c (05/12/2022 1:47 PM AUTO PAINTER) Hemoglobin A1C, POC 14.0 Blood 05/12/2022 1:47 PM AUTO PAINTER Ophelia Ashraf MD POINT OF CARE TEST [...] 11/24/2022 added in this encounter Care Teams Rn Cardiovascular Relationship Specialty Start Date End Date Jessica Navarro NP [address] [place] [address] PCP - General 08/23/20 documented as of this encounter
--- OUTSIDE RECORDS SUMMARY | 2024-04-14 18:56 | XMS_ITS | Encounter Summary ---
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
--- OUTSIDE RECORDS SUMMARY | 2024-04-14 18:56 | XMS_ITS | Encounter Summary ---
Author Organization [facility] Healthcare Address [address] [place] [address] Care Team Providers Care Chartered Financial Analyst Name Role Phone Jessica Navarro NP Primary Care Provider Reason for Visit * Reason Comments Knee Pain Encounter Details Date Type Department Care Team (Late st Contact Info) Description 09/09/2021 1:40 PM CDT - 09/09/2021 3:30 PM CDT Emergency [facility] Emergency Department 1 [place] [address] Maia Garcia MD 1 [place] [address] Knee injury, initial encounter (Primary Dx) Discharge [...] sent through Care Everywhere. * Knee Sprain (Icelandic) * R.I.C.E. Treatment (Fruit Or Nut Farmworker) (Icelandic) documented in this encounter Medications at Time [...] PM T: ??09/09/2021 3:09 PM Report ID: [id number] Reading Location: [id number] Procedure Note Maurilio Kim MD - 09/09/2021 [...] Maurilio Kim M.D. MF: [place] Report ID: [id number] Reading Location: [place] [address] Maia Garcia MD IMG XR PROCEDURES F inal Result documented in this encounter Visit Diagnoses Diagnosis Knee injury, initial encounter- Primary documented in this encounter Orders Nursing Count Last Ordered Date First Orde red Date APPLY LUCAS WRAP 1 09/09/2021 documented in this encounter Care Teams Chartered Financial Analyst Relationship Specialty Start Date End Date Navarro, Jessica Pinto NP [address] [place] [address] PCP - General 08/23/20 documented as of this encounter
--- OUTSIDE RECORDS SUMMARY | 2024-04-14 18:56 | XMS_ITS | Encounter Summary ---
Author Organization [facility] Medical Group Address [address] [facility] [address] [place] [address] Care Team Providers Care Reconstructive Surgeon Name Role Phone Jessica Navarro NP Primary Care Provider Reason for Visit * Reason Comments Diabetes Type 2 Encounter Details Date Type Department Care Team (Late st Contact Info) Description 06/02/2022 1:30 PM LICENSED RETAIL SUPERVISOR Office Visit [facility] Medical [facility] Diabetes Endocrine Care of [address] [place] [address] Ophelia Ashraf MD [address] [place] [address] [address] [place], [place] [id number] Type 2 diabetes mellitus with hyperglycemia, with long-term current use of insulin ([facility]) (HCC) (Primary Dx) Social History [...] Comments Blood Pressure 120/64 06/02/2022 1:31 PM LICENSED RETAIL SUPERVISOR Pulse - - Temperature - - Respiratory Rate - - Oxygen Saturation - - Inhaled Oxygen Concentration - - Weight 82.5 kg (181 lb 12.8 oz) 06/02/2022 1:31 PM LICENSED RETAIL SUPERVISOR Height 162.6 cm (5' 4 ) 06/02/2022 1:31 PM LICENSED RETAIL SUPERVISOR Body Mass Index 31.21 06/02/2022 1:31 PM LICENSED RETAIL SUPERVISOR documented in this encounter Progress Notes * [...] next month She monitors sugars using CGM Paice, data downloaded 05/20-06/02/22. Time in target 68% [...] with long-term current use of insulin (CMS/HCC) ([facility]) (E11.65, Z79.4) (Primary) Assessment & [...] on regular basis. Orders: - POCT glucose NSED RETAIL SUPERVISOR documented in this encounter Miscellaneous Notes * Assessment & Plan Note - Ophelia Ashraf MD - 06/02/2022 1:43 PM LICENSED RETAIL SUPERVISOR Associated Problem(s): Type 2 diabetes mellitus without complication, without long-term current useof insulin (CMS/HCC) ([facility]) Diagnosed in 2019 Started insulin [...] low sugars. Ophthalmology exam on regular basis. NSED RETAIL SUPERVISOR NSED RETAIL SUPERVISOR documented in this encounter Plan of Treatment Not on file documented as of this encounter Procedures Procedure Name Priority Date/Time Associated Diagnosis Comments POCT GLUCOSE Routine 06/02/2022 1:49 PM LICENSED RETAIL SUPERVISOR Type 2 diabetes mellitus with hyperglycemia, with long-term current use of insulin ([facility]) ([facility]) documented in this encounter Results * POCT glucose (06/02/2022 1:49 PM LICENSED RETAIL SUPERVISOR) Glucose Blood, POC 112 mg/dL Blood 06/02/2022 1:49 PM LICENSED RETAIL SUPERVISOR Ophelia Ashraf MD POINT OF CARE TEST ORDERABLES Final Result documented in this encounter Visit Diagnoses Diagnosis Type 2 diabetes mellitus with hyperglycemia, with long-term current use of insulin ([facility])- Primary documented in this encounter Discontinued Medications Medication Sig Discontinue Reason Start Date End Da te hydrOXYzine (ATARAX) 25 mg tablet Take 25 mg by mouth 3 (three) times a day as needed Therapy completed 11/20/2020 06/02/2022 documented as of this encounter Care Teams Reconstructive Surgeon Relationship Specialty Start Date End Date Jessica Navarro NP [address] [place] [address] PCP - General 08/23/20 documented as of this encounter
--- OUTSIDE RECORDS SUMMARY | 2024-04-14 18:56 | XMS_ITS | Encounter Summary ---
Author Organization [facility] Medical Group Address [address] [address] Care Team Providers Care Rn Diabetes Name Role Phone Jessica Navarro NP Primary Care Provider Reason for Visit * Reason Comments Pre-op Visit Encounter Details Date Type Department Care Team (Late st Contact Info) Description 08/13/2022 1:15 PM CDT Office Visit 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 General Distillery Worker completed by using M*Modal Fluency Direct speaking [...] noted below. Thumb extension: 4/5 Thumb abduction:4/5 Cooperer: 4/5 Neurovascular The patient has normal vascular [...] She will get a new PCP and [id number] below 7.5 Prior to surgical date JINA Martinez MD documented in this encounter Plan of Treatment Not on file documented as of this encounter Visit Diagnoses Diagnosis Tenosynovitis, de Quervain- Primary Radial styloid tenosynovitis Carpal tunnel syndrome of right wrist documented in this encounter Care Teams Rn Diabetes Relationship Specialty Start Date End Date Jessica Navarro NP [address] [place] [address] PCP - General 08/23/20 documented as of this encounter
--- OUTSIDE RECORDS SUMMARY | 2024-04-14 18:56 | XMS_ITS | Encounter Summary ---
Author Organization [facility] Address [address] [facility] [address] [place] [address] Phone Care Team Providers Care Buyer Renter Name Role Phone Navarro, Jessica Pinto NP Primary Care Provider + [phone] Reason for Visit * Reason Comments Follow-up * Consultation (Routine) - Closed Specialty Diagnoses / Procedures Referred By Contac t Referred To Contact Plastic Surgery Diagnoses Angie Arita MD [address] [facility] [phone] [place] [address] Phone: tel: fax: [facility] (All Locations) Referral ID Status Reason Start Date Expiration Date V isits Requested Visits Authorized [id number] Closed Specialty Services Required 12/25/2021 01/24/2023 99 99 Encounter Details Date Type Department Care Team (Late st Contact Info) Description 07/16/2022 2:00 PM CDT Office Visit [facility] [address] [place] [address] [address] [place] [address] Angei Randhawa MD [address] [facility] [phone] [place] [address] Diana (Primary Dx) Social History [...] 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 Itmay contain typographical, grammatical, and/or syntax errors. [...] 04/14/2023 added in this encounter Care Teams Buyer Renter Relationship Specialty Start Date End Date Jessica Navarro NP [address] [place] [address] PCP - General 08/23/20 documented as of this encounter
--- OUTSIDE RECORDS SUMMARY | 2024-04-14 18:56 | XMS_ITS | Encounter Summary ---
Author Organization [facility] Address [address] [facility] [address] [place] [address] Care Team Providers Care Closing Manager Name Role Phone Jessica Navarro NP Primary Care Provider Reason for Visit * Reason Comments Diabetes Type 2 Encounter Details Date Type Department Care Team (Late st Contact Info) Description 09/02/2022 10:30 AM CDT Office Visit [facility] Diabetes [facility] of [address] [place] [address] Ophelia Ashraf MD [address] [place] [address] [address] [place], [place] [id number] Type 2 diabetes mellitus with hyperglycemia, with long-term current use of insulin ([facility]) (HCC) (Primary Dx) Social History Tobacco Use [...] 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 [...] hyperglycemia, with long-term current use of insulin ([facility]) ([facility]) (E11.65, Z79.4) (Primary) Assessment & [...] complication, without long-term current useof insulin (CMS/HCC) ([facility]) Diagnosed in 2019 Started insulin [...] hyperglycemia, with long-term current use of insulin ([facility]) ([facility]) documented in this encounter Results * (ABNORMAL) C-peptide (09/02/2022 11:00 AM CDT) C-peptide 5.34(H) 1.10 - 4.40 ng/mL ILDA ARGUELLES (LAMINE) Comment:Testing performed by : [facility], [address] [place]., [address] Blood 09/02/2022 11:0 0 AM CDT 09/02/2022 11:09 PM CDT us Ophelia Ashraf MD LAB BLOOD ORDERABLES Final Res ult ILDA ARGUELLES (LAMINE) 1 [facility] Department [place] [address] * T4, free (09/02/2022 11:00 AM CDT) Free T4 1.11 0.90 - 1.70 ng/dL ILDA ARGUELLES (LAMINE) Blood 09/02/2022 11:0 0 AM CDT 09/02/2022 1:24 PM CDT Ophelia Ashraf MD LAB BLOOD ORDERABLES Final Res ult Performing Organization Address City/[facility]/ZIP Co de Phone Number ILDA ARGUELLES ([place]) 1 [facility] [place] [address] * TSH (09/02/2022 11:00 AM CDT) Thyroid Stimulating Hormone 1.49 0.30 - 4.20 mcIUnit/mL ILDA BLANE ([place]) Blood 09/02/2022 11:0 0 AM CDT 09/02/2022 1:24 PM CDT Ophelia Ashraf MD LAB BLOOD ORDERABLES Final Res ult Performing Organization Address City/[facility] Co de Phone Number ILDA ARGUELLES ([place]) 1 [facility] [place] [address] * (ABNORMAL) Lipid panel (09/02/2022 11:00 AM CDT) Cholesterol 215(H) 30 - 199 mg/dL ILDA ARGUELLES ([place]) Comment: Interpretive Data Ages < or = [...] 2017. Non-HDL Cholesterol 181 mg/dL ILDA ARGUELLES ([place]) Comment: Interpretive Data Ages < or = [...] on 2017. Chol/HDL ratio 6 XIMENA ARGUELLES ([place]) Blood 09/02/2022 11:0 0 AM CDT 09/02/2022 1:24 PM CDT us Ophelia Ashraf MD LAB BLOOD ORDERABLES Final Res ult SYDNIELENY ARGUELLES ([place]) 1 [facility] Department [place] [address] * (ABNORMAL) Basic metabolic panel (09/02/2022 11:00 [...] (LAMINE) Glucose 216(H) 70 - 199 mg/dL [facility] [...] 2022. Calcium 9.1 8.5 - 10.3 mg/dL [facility] (LAMINE) Blood 09/02/2022 11:0 0 AM CDT 09/02/2022 1:24 PM CDT Ophelia Ashraf MD LAB BLOOD ORDERABLES Final Res ult [facility] (LAMINE) 1 [facility] Department [place] [address] * Albumin Creatinine Ratio, Urine (09/02/2022 11:00 AM CDT) Albumin Ur <12.0 mg/L [facility] (LAMINE) Comment: Interpretive Data No reference range established. Current interpretive data was last revised 2018. Testing performed by: [facility], [address] [place]., [address] Creatinine Ur 139.4 mg/dL SYDNIELENY ARGUELLES (LAMINE) Comment: Interpretive Data No reference range established. Current interpretive data was last revised 2018. Testing performed by: [facility], [address] [place] [address]., [address] Albumin Creatinine Ratio, Ur <9 1 - 29 mg/g ILDA ARGUELLES (LAMINE) Comment:Testing performed by : [facility], [address] [place] [address], [address] Urine 09/02/2022 11:0 0 AM CDT 09/02/2022 7:30 PM CDT us Ophelia Ashraf MD LAB URINE ORDERABLES Final Res ult ILDA BLANE (LAMINE) 1 [facility] Department [place] [address] * POCT glucose (09/02/2022 10:36 AM CDT) Glucose Blood, POC 220 mg/dL Blood 09/02/2022 10:3 6 AM CDT us Ophelia Ashraf MD POINT OF CARE TEST ORDERABLES Final Result documented in this encounter Visit Diagnoses Diagnosis Type 2 diabetes mellitus with hyperglycemia, with long-term current use of insulin (HCC)- Primary documented in this encounter Care Teams Closing Manager Relationship Specialty Start Date End Date Jessica Navarro NP [address] [place] [address] PCP - General 08/23/20 documented as of this encounter
--- OUTSIDE RECORDS SUMMARY | 2024-04-14 18:57 | XMS_ITS | Encounter Summary ---
Author Organization [facility] Healthcare Address [address] [place] [address] Care Team Providers Care Traffic Control Officer Name Role Phone Jessica Navarro NP Primary Care Provider [phone] Reason for Visit * Reason Comments PT Initial Eval * Consultation (Routine) - Closed Specialty Diagnoses / Procedures Referred By Jonas reeves Referred To Contact Physical Therapy Diagnoses Radiculopathy, thoracic region Jessica Navarro NP [address] [place] [address] Phone: tel: fax: [address] [phone] Referral ID Status Reason Start Date Expiration Date V isits Requested Visits Authorized [id number] Closed Specialty Services Required 08/14/2020 09/13/2021 24 24 Encounter Details Date Type Department Care Team (Late st Contact Info) Description 08/28/2020 2:45 PM CDT Therapy [facility] Physical Therapy [address] [place] [address] Jaye Zayas, PT Radiculopathy, thoracic region (Primary [...] Spine *Please sign and fax back to [phone]* Lilli Santos 1995 25 y.o. female Jessica Navarro NP [address] [place] [address] ICD-9-CM ICD-10-CM 1. Radiculopathy, thoracic region 724.4 [...] does report increased pain. Special Tests: Long [place] distraction (no change) SIJ: SLS on the [...] 1 documented in this encounter Care Teams Traffic Control Officer Relationship Specialty Start Date End Date Jessica Navarro NP [address] [place] [address] PCP - General 08/23/20 documented as of this encounter
--- OUTSIDE RECORDS SUMMARY | 2024-04-14 18:57 | XMS_ITS | Encounter Summary ---
Author Organization [facility] Healthcare Address [address] [place] [address] Care Team Providers Care Field Human Resources Manager Name Role Phone Jessica Navarro NP Primary Care Provider Reason for Visit * Reason Comments PT Treatment Encounter Details Date Type Department Care Team (Late st Contact Info) Description 06/25/2020 1:45 PM FARM LOAN INSPECTOR Therapy [facility] Physical Therapy [address] [place] [address] Jaye Zayas, PT Nontraumatic rupture of tendons [...] 1345 End Time:1430 Jaye Zayas PT, DPT LOAN INSPECTOR documented in this encounter Plan of Treatment Not on file documented as of this encounter Visit Diagnoses Diagnosis Nontraumatic rupture of tendons of left foot and ankle- Primary documented in this encounter Care Teams Field Human Resources Manager Relationship Specialty Start Date End Date Jessica Navarro NP [address] [place] [address] PCP - General 07/26/19 08/22/20 documented as of this encounter
--- OUTSIDE RECORDS SUMMARY | 2024-04-14 18:57 | XMS_ITS | Encounter Summary ---
Author Organization [facility] Address [address] [facility] [address] [place] [address] Phone Care Team Providers Care Apiarist Name Role Phone Jessica Navarro NP Primary Care Provider Encounter Details Date Type Department Care Team (Late st Contact Info) Description 02/15/2021 Telephone [facility] Orthopaedic Surgery [address] [place] [address] Renard Naqvi MD [address] [facility] [address] [place] [address] Social History Tobacco Use Types Packs/Day Years [...] Notes * Telephone Encounter - Delaney Nelson, PARKING LOT SIGNALER - 02/15/2021 12:[address] Naqvi spoke with the patient on 02/14/21 regarding her MRI that was completed on 02/11/21. Dr. Naqvi is recommending referring to the physiatry department to be evaluated for her spine and possible injections. I spoke with the patient and she has been scheduled for an appointment with Mia Wilson NP. documented in this encounter Plan of Treatment Not on file documented as of this encounter Visit Diagnoses Not on filedocumented in this encounter Care Teams Apiarist Relationship Specialty Start Date End Date Navarro, Jessica Pinto NP [address] [place] [address] PCP - General 08/23/20 documented as of this encounter
--- OUTSIDE RECORDS SUMMARY | 2024-04-14 18:57 | XMS_ITS | Encounter Summary ---
Author Organization [facility] Healthcare Address [address] [place] [address] Care Team Providers Care Med Care Manager Name Role Jessica England NP Primary Care Provider [phone] Reason for Visit * Reason Comments PT Initial Eval * Consultation (Routine) - Closed Specialty Diagnoses / Procedures Referred By Jonas reeves Referred To Contact Physical Therapy Diagnoses Lumbar radiculopathy Mia Wilson NP [address] [facility] [address] [place] [address] Phone: tel: fax: [facility] [employer] [address] [place] [phone] Phone: tel: fax: Referral ID Status Reason Start Date Expiration Date V isits Requested Visits Authorized [id number] Closed Specialty Services Required 02/20/2021 03/22/2022 8 8 Encounter Details Date Type Department Care Team (Late st Contact Info) Description 02/26/2021 11:00 AM CDT Therapy [facility] Physical Therapy [address] [place] [address] [id number] Seema Oakley PT Lumbar radiculopathy (Primary Dx) [...] Santos 1995 25 y.o. female Mia Wilson WARP YARN SORTER [address] [facility] [address] [place] [address] ICD-9-CM ICD-10-CM 1. 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
--- OUTSIDE RECORDS SUMMARY | 2024-04-14 18:57 | XMS_ITS | Encounter Summary ---
Author Organization [facility] Healthcare Address [address] [place] [address] Care Team Providers Care Forensic Investigator Name Role Phone Jessica Navarro NP Primary Care Provider Reason for Visit * Reason Comments Hyperglycemia Encounter Details Date Type Department Care Team (Late st Contact Info) Description 10/30/2020 2:00 PM CDT - 10/30/2020 5:54 PM CDT Emergency [facility] Emergency Department [address] [place] [address] Harvey Venegas MD 1 [place] [address] Type 2 diabetes mellitus without complication, without long-term current use of insulin ([facility]) (Primary Dx); Acute cystitis without [...] complication, without long-term current use of insulin ([facility]) Acute cystitis without hematuria Harvey Venegas MD 10/30/201734 * Lilli Reyes, SHERIDAN - 10/30/2020 1:54 PM CDT Pt states [...] PM CDT) 10/30/2020 4:52 PM CDT Narrative [facility] - 10/31/2020 8:07 AM CDT Vent Rate: 74 bpm RR Interval: 804 msec WA Interval: 193 msec QRS Duration: 92 msec QT Interval: 387 msec QTC Interval: 415 msec P-R-T [place]: 36 - 7 - 20 degrees SINUS RHYTHM WITH SINUS ARRHYTHMIA NORMAL ECG No change from prior EKG Electronically Signed By: Giovanny Olguin MD us Harvey Venegas MD ECG ORDERABLES Fin al Result [facility] [employer] [facility] * Urine culture Urine (10/30/2020 3:07 PM CDT) Report Final Report: Less than 100,000 colonies/mL (clinically insignificant growth based on current clinical standards) ILDA ARGUELLES (LAMINE) Comment:Testing performed by : [facility], [address] [place]., [address] Organism (CLINICALLY INSIGNIFICANT GROWTH ILDA ARGUELLES (LAMINE) Urine 10/30/2020 3:07 PM CDT 10/30/2020 8:32 PM CDT Narrative ILDA TAYLOR) - 11/02/2020 6:45 AM CDT Urine culture reflexed based upon urinalysis results. Testing performed by [facility] Microbiology Laboratory ([phone]) us Harvey Venegas MD LAB MICROBIOLOGY - GENERAL ORDERABLES Final Result Performing Organization Address City/[facility]/ZIP Co de Phone Number ILDA TAYLOR) 1 [facility] Department [place] [address] * (ABNORMAL) Urinalysis, microscopic only (10/30/2020 3:07 PM CDT) WBC, ur 21-50(A) 0 - 5 /HPF [facility] (LAMINE) RBC, ur 21-50(A) 0 - 2 /HPF [facility] ([place]AM[place]) Epithelial cells, squamous, ur 1-5 0 - 5 /HPF [facility] ([place]AM[place]) Bacteria, ur Trace(A) [facility] (LAM[place]) Culture Reflex Comment Reflex to urine culture will be performed. [facility] ([place]) Urine 10/30/2020 3:07 PM CDT 10/30/2020 3:11 PM CDT us Harvey Venegas MD LAB URINE ORDERABLE S Final Result ILDA ARGUELLES (LAMINE) 1 [facility] Department [place] [address] * (ABNORMAL) Urinalysis reflex to microscopic and [...] tendency for uric acid stone formation. Source: [employer]. Last revised 05-07-2017 us Harvey Venegas MD LAB MICROBIOLOGY - GENERAL ORDERABLES Final Result ILDA ARGUELLES (LAMINE) 1 [facility] Department [place] [address] * eGFR (10/30/2020 2:16 PM CDT) eGFR [...] ORDERABLES Final Result [facility] (LAMINE) 1 [facility] Department [place] [address] * (ABNORMAL) Differential, auto (10/30/2020 2:16 PM [...] BLOOD ORDERABLES Final Result Performing Organization Address [facility]/ZIP Co de Phone Number ILDA ARGUELLES ([place]) [address] [facility] [place] [address] * (ABNORMAL) Beta-hydroxybutyrate (10/30/2020 2:16 PM CDT) Beta-Hydroxybu tyrate 0.7(H) <=0.5 mmol/L ILDA ARGUELLES (LAMINE) Comment:Testing performed by : [facility], [address] [place] [address]., [address] Blood specimen (specimen) 10/30/2020 2:16 PM CDT 10/30/2020 6:37 PM CDT Harvey Venegas MD LAB BLOOD ORDERABLE S Final Result Performing Organization Address City/[facility]/ZIP Co de Phone Number [facility] ([place]) [address] [facility] [place] [address] * Blood gas, venous (10/30/2020 2:16 PM [...] MD LAB BLOOD ORDERABLE S Final Result [facility] (LAMINE) 1 [facility] Department [place] [address] * (ABNORMAL) CBC with auto differential (10/30/2020 2:16 PM CDT) WBC 9.7 3.8 - 9.9 K/cumm [facility] ([place]AM[place]) Hgb 14.6 11.9 - 15.5 g/dL [facility] ([place]AM[place]) Hct 40.5 35.6 - 45.5 % [facility] ([place]AM[place]) Plt 225 150 - 400 K/cumm [facility] ([place]) MPV 12.0 9.1 - 12.3 fL [facility] ([place]) RBC 4.69 3.90 - 5.20 M/cumm [facility] ([place]) MCV 86.4 81.3 - 96.4 fL [facility] ([place]AM[place]) MCH 31.1 27.1 - 33.3 pg [facility] ([place]) MCHC 36.0(H) 32.3 - 35.7 g/dL [facility] ([place]AM[place]) RDW CV 11.3 11.1 - 14.9 % [facility] ([place]) RDW SD 35.4(L) 35.7 - 48.1 fL [facility] ([place]) NRBC abs 0.00 0.00 - 0.01 K/cumm [facility] ([place]) Blood specimen (specimen) 10/30/2020 2:16 PM CDT 10/30/2020 2:18 PM CDT us Archana Jones AUTOMATIC CIGAR WRAPPER TENDER LAB BLOOD ORDERABLES Final Result [facility] (LAMINE) 1 [facility] Department [place] [address] * (ABNORMAL) Comprehensive metabolic panel (10/30/2020 2:16 [...] 10/30/2020 2:18 PM CDT us Archana Jones AUTOMATIC CIGAR WRAPPER TENDER LAB BLOOD ORDERABLES Final Result ILDA ARGUELLES (LAMINE) [address] [facility] [place] [address] * (ABNORMAL) POCT glucose (10/30/2020 2:13 PM CDT) [facility] Signature Glucose, POC 407(H) 71 - 98 mg/dL [facility] (LAMINE) Blood specimen (specimen) 10/30/2020 2:13 PM CDT 10/30/2020 2:13 PM CDT us Notinfile Unknown LAB POCT ORDERABLES - DEVICE F inal Result Performing Organization Address [facility] Co de Phone Number ILDA ARGUELLES (LAMINE) [address] [facility] [place] [address] documented in this encounter Visit Diagnoses Diagnosis Type 2 diabetes mellitus without complication, without long-term current use of insulin ([facility]/H[facility]) ([facility])- Primary Acute cystitis without hematuria [...] 10/30/2020 documented in this encounter Care Teams Forensic Investigator Relationship Specialty Start Date End Date Navarro, Jessica Pinto NP [address] [place] [address] PCP - General 08/23/20 documented as of this encounter
--- OUTSIDE RECORDS SUMMARY | 2024-04-14 18:57 | XMS_ITS | Encounter Summary ---
Author Organization [facility] Address [address] [address] Care Team Providers Care Near Eastern Archaeology Lecturer Name Role Phone Jessica Navarro NP Primary Care Provider Reason for Visit * Reason Comments Follow-up Encounter Details Date Type Department Care Team (Late st Contact Info) Description 09/10/2020 11:10 AM CDT Office Visit [facility] [address] [place] [address] Kishan Broussard MD [address] [address] Nontraumatic rupture of tendons of left foot [...] Primary documented in this encounter Care Teams Near Eastern Archaeology Lecturer Relationship Specialty Start Date End Date Melanie, Jessica Pinto NP [address] [place] [address] PCP - General 08/23/20 documented as of this encounter
--- OUTSIDE RECORDS SUMMARY | 2024-04-14 18:57 | XMS_ITS | Encounter Summary ---
Author Organization [facility] Address [address] [address] Care Team Providers Care Chief Compliance Officer Name Role Phone Jessica Navarro NP Primary Care Provider [phone] Reason for Visit * Reason Comments Follow-up Encounter Details Date Type Department Care Team (Late st Contact Info) Description 11/12/2020 10:50 AM CDT Office Visit [facility] [address] [place] [address] Kishan Broussard MD [address] [address] Nontraumatic rupture of tendons of left foot [...] Primary documented in this encounter Care Teams Chief Compliance Officer Relationship Specialty Start Date End Date Jessica Navarro NP [address] [place] [address] PCP - General 08/23/20 documented as of this encounter
--- OUTSIDE RECORDS SUMMARY | 2024-04-14 18:57 | XMS_ITS | Encounter Summary ---
Author Organization [facility] Healthcare Address [address] [place] [address] Care Team Providers Care Zigzagger Name Role Phone Jessica Navarro NP Primary Care Provider Reason for Visit * Reason Comments PT Treatment Encounter Details Date Type Department Care Team (Late st Contact Info) Description 07/04/2020 10:45 AM RESIDENTIAL YOUTH COUNSELOR Therapy [facility] Physical Therapy [address] [place] [address] Christi Chanel, HACKSAW INSPECTOR Nontraumatic rupture of tendons of left foot [...] this encounter Progress Notes * Christi Chanel, HACKSAW INSPECTOR - 07/04/2020 10:45 AM CST PT Daily [...] Time: 1050 End Time:1135 Christi Chanel PTA DENTIAL YOUTH COUNSELOR documented in this encounter Plan of Treatment Not on file documented as of this encounter Visit Diagnoses Diagnosis Nontraumatic rupture of tendons of left foot and ankle- Primary documented in this encounter Care Teams Zigzagger Relationship Specialty Start Date End Date Jessica Navarro NP [address] [place] [address] PCP - General 07/26/19 08/22/20 documented as of this encounter
--- OUTSIDE RECORDS SUMMARY | 2024-04-14 18:57 | XMS_ITS | Encounter Summary ---
Author Organization [facility] Healthcare Address [address] [place] [address] Care Team Providers Care Oil Tank Car Cleaner Name Role Phone Jessica Navarro NP Primary Care Provider Reason for Visit * Reason Comments PT Treatment Encounter Details Date Type Department Care Team (Late st Contact Info) Description 03/06/2021 10:00 AM SUBSTANCE ABUSE CLINICIAN Therapy [facility] Physical Therapy [address] [place] [address] Christi Chanel, INFANT TEACHER Lumbar radiculopathy (Primary Dx) Social History Tobacco [...] this encounter Progress Notes * Christi Chanel, INFANT TEACHER - 03/06/2021 10:00 AM CST PT Daily [...] Time: 1000 End Time:1045 Christi Chanel PTA TANCE ABUSE CLINICIAN documented in this encounter Plan of Treatment Not on file documented as of this encounter Visit Diagnoses Diagnosis Lumbar radiculopathy- Primary Thoracic or lumbosacral neuritis or radiculitis, unspecified documented in this encounter Care Teams Oil Tank Car Cleaner Relationship Specialty Start Date End Date Jessica Navarro NP [address] [place] [address] PCP - General 08/23/20 documented as of this encounter
--- OUTSIDE RECORDS SUMMARY | 2024-04-14 18:57 | XMS_ITS | Encounter Summary ---
Author Organization [facility] Healthcare Address [address] [place] [address] Care Team Providers Care Mulcher Operator Name Role Phone MelanieJohnJessicalambert Pinto NP Primary Care Provider Reason for Visit * Reason Comments PT Treatment Encounter Details Date Type Department Care Team (Late st Contact Info) Description 09/17/2020 1:45 PM CDT Therapy [facility] Physical Therapy [address] [place] [address] Jaye Zayas, PT Radiculopathy, thoracic region (Primary [...] unspecified documented in this encounter Care Teams Mulcher Operator Relationship Specialty Start Date End Date Melanie, Jessica Pinto NP [address] [place] [address] PCP - General 08/23/20 documented as of this encounter
--- OUTSIDE RECORDS SUMMARY | 2024-04-14 18:57 | XMS_ITS | Encounter Summary ---
Author Organization [facility] Healthcare Address [address] [place] [address] Care Team Providers Care Java J2Ee Architect Name Role Phone Jessica Navarro NP Primary Care Provider [phone] Reason for Visit * Reason Comments PT Initial Eval * Consultation (Routine) - Closed Specialty Diagnoses / Procedures Referred By Jonas t Referred To Contact Physical Therapy Diagnoses Left foot pain [place] [address] [place] [address] Phone: tel: fax: External Order Referral ID Status Reason Start Date Expiration Date V isits Requested Visits Authorized [id number] Closed Specialty Services Required 01/10/2021 02/09/2022 24 24 Encounter Details Date Type Department Care Team (Late st Contact Info) Description 02/12/2021 8:30 AM CDT Therapy [facility] Physical Therapy [address] [place] [address] Beronica Contreras, PT Left foot pain (Primary [...] 1 documented in this encounter Care Teams Java J2Ee Architect Relationship Specialty Start Date End Date Jessica Navarro NP [address] [place] [address] PCP - General 08/23/20 documented as of this encounter
--- OUTSIDE RECORDS SUMMARY | 2024-04-14 18:57 | XMS_ITS | Encounter Summary ---
Author Organization [facility] Address [address] [facility] [address] [place] [address] Phone Care Team Providers Care Manager Compensation Name Role Phone Melanie, Jessica Pinto NP Primary Care Provider [phone] Reason for Referral * MRI/CAT/PET Scan (Routine) - Closed Specialty Diagnoses / Procedures Referred By Contac t Referred To Contact Radiology Diagnoses Lumbar radiculopathy Procedures MRI Lumbar Spine WO Contrast Renard Naqvi MD Phone: tel: fax: [address] [address] Referral ID Status Reason Start Date Expiration Date Visits Re quested Visits Authorized [id number] Closed 02/05/2021 05/06/2021 1 1 Reason for Visit * Reason Comments Pain Pain Encounter Details Date Type Department Care Team (Late st Contact Info) Description 02/04/2021 9:40 AM CDT Office Visit [facility] Orthopaedic Surgery [address] [facility] [place] 1st Floor [address] [place] [address] Renard Naqvi MD [address] [facility] [address] [place] [address] Lumbar radiculopathy (Primary Dx); Pain in both [...] and Family: Not on file ??? Attends Restorationist Services: Not on file ??? Active Member [...] assessment in 6 weeks. Renard Naqvi M.D. Fuel Efficient Automobile Designer Hand and Upper Extremity [facility] Orthopedics Dr. Naqvi is dictating using speech recognition software. Facial Operator variances may occur. documented in this [...] 05/04/2023 added in this encounter Care Teams Manager Compensation Relationship Specialty Start Date End Date Jessica Navarro NP [address] [place], [place] [address] PCP - General 08/23/20 documented as of this encounter
--- OUTSIDE RECORDS SUMMARY | 2024-04-14 18:57 | XMS_ITS | Encounter Summary ---
Author Organization [facility] Healthcare Address [address] [place] [address] Care Team Providers Care Tool Hardener Name Role Phone Jessica Navarro NP Primary Care Provider [phone] Reason for Visit * Reason Comments PT Treatment Encounter Details Date Type Department Care Team (Late st Contact Info) Description 10/01/2020 10:00 AM CDT Therapy [facility] Physical Therapy [address] [place] [address] Christi Chanel, PANEL CUTTER Radiculopathy, thoracic region (Primary Dx) Social History [...] this encounter Progress Notes * Christi Chanel, PANEL CUTTER - 10/01/2020 10:00 AM CDT PT Daily [...] unspecified documented in this encounter Care Teams Tool Hardener Relationship Specialty Start Date End Date Jessica Navarro NP [address] [place] [address] PCP - General 08/23/20 documented as of this encounter
--- OUTSIDE RECORDS SUMMARY | 2024-04-14 18:57 | XMS_ITS | Encounter Summary ---
Author Organization [facility] Healthcare Address [address] [place] [address] Care Team Providers Care Drawer In Plain Loom Name Role Phone MelanieJohnJessicalambert Pinto NP Primary Care Provider [phone] Reason for Visit * Reason Comments PT Treatment Encounter Details Date Type Department Care Team (Late st Contact Info) Description 09/27/2020 10:00 AM CDT Therapy [facility] Physical Therapy [address] [place] [address] Jaye Zayas, PT Radiculopathy, thoracic region (Primary [...] AM CDT PT Daily Treatment Note Lilli Satnos 1995 Subjective: Pt states her lower back [...] unspecified documented in this encounter Care Teams Drawer In Plain Loom Relationship Specialty Start Date End Date Navarro, Jessica Pinto NP [address] [place] [address] PCP - General 08/23/20 documented as of this encounter
--- OUTSIDE RECORDS SUMMARY | 2024-04-14 18:57 | XMS_ITS | Encounter Summary ---
Author Organization [facility] Address [address] [facility] [address] [place] [address] Phone Care Team Providers Care Jawbone Puller Name Role Phone Jessica Navarro NP Primary Care Provider [phone] Encounter Details Date Type Department Care Team (Late st Contact Info) Description 04/04/[address] [facility] Orthopaedic Surgery [address] [place] [address] Mia Wilson NP [address] [facility] [address] [place] [address] Social History Tobacco Use Types [...] of the pre injection instructions (sent via [place]) TE PLANNING DIRECTOR * Telephone Encounter - Jasbir Ayala - 04/04/2021 8:54 AM CST Pre Arrival reported that pt's INJ has been approved by insurance so pt may reschedule for anytime. TE PLANNING DIRECTOR documented in this encounter Plan of Treatment Not on file documented as of this encounter Visit Diagnoses Not on filedocumented in this encounter Care Teams Jawbone Puller Relationship Specialty Start Date End Date Melanie, Jessica Pinto NP [address] [place] [address] PCP - General 08/23/20 documented as of this encounter
--- OUTSIDE RECORDS SUMMARY | 2024-04-14 18:57 | XMS_ITS | Encounter Summary ---
Author Organization [facility] Healthcare Address [address] [place] [address] Care Team Providers Care Radiology Practitioner Assistant Name Role Phone MelanieJohnJessicalambert Pinto NP Primary Care Provider [phone] Reason for Visit * Reason Comments PT Treatment Encounter Details Date Type Department Care Team (Late st Contact Info) Description 09/19/2020 10:00 AM CDT Therapy [facility] Physical Therapy [address] [place] [address] Christi Chanel, HEAT CURER Radiculopathy, thoracic region (Primary Dx) Social History [...] this encounter Progress Notes * Christi Chanel HEAT CURER - 09/19/2020 10:00 AM CDT PT Daily [...] unspecified documented in this encounter Care Teams Radiology Practitioner Assistant Relationship Specialty Start Date End Date Jessica Navarro NP [address] [place] [address] PCP - General 08/23/20 documented as of this encounter
--- OUTSIDE RECORDS SUMMARY | 2024-04-14 18:57 | XMS_ITS | Encounter Summary ---
Author Organization [facility] Address [address] [facility] [address] [place] [address] Phone Care Team Providers Care Knuckle Bender Name Role Phone Melanie, Jessica Pinto NP Primary Care Provider [phone] Reason for Referral * Diagnostic Imaging (Routine) - Closed Specialty Diagnoses / Procedures Referred By Jonas reeves Referred To Contact Radiology Diagnoses Lumbar radiculopathy Procedures IR Transforaminal Epidural Injection Lumbar Sacral 1 Level Right Mia Wilson NP [address] [address] Phone: tel: fax: [address] [address] Referral ID Status Reason Start Date Expiration Date Visits Re quested Visits Authorized [id number] Closed 03/29/2021 06/27/2021 1 1 F SOFTWARE ENGINEER Encounter Details Date Type Department Care Team (Late st Contact Info) Description 03/19/2021 Orders Only [facility] Orthopaedic Surgery [address] [place] [address] 1st [address] [place] [address] Loser, Sheba, RMA Lumbar radiculopathy (Primary Dx) [...] Sacral 1 Level Right (04/08/2021 2:56 PM STAFF SOFTWARE ENGINEER) Narrative [facility] - 04/08/2021 2:57 PM STAFF SOFTWARE ENGINEER The images from this study are not interpreted by Radiology. ??Please refer to the physician's procedure / OR operative note. Mia Wilson NP IMG IR PROCEDURES Final Resul t [facility] documented in this encounter Visit Diagnoses Diagnosis Lumbar radiculopathy- Primary Thoracic or lumbosacral neuritis or radiculitis, unspecified Lumbar radiculopathy- Primary Thoracic or lumbosacral neuritis or radiculitis, unspecified documented in this encounter Care Teams Knuckle Bender Relationship Specialty Start Date End Date Melanie, Jessica Pinto NP [address] [place] [address] PCP - General 08/23/20 documented as of this encounter
--- OUTSIDE RECORDS SUMMARY | 2024-04-14 18:57 | XMS_ITS | Encounter Summary ---
Author Organization [facility] Healthcare Address [address] [place] [address] Care Team Providers Care Wine Cellar Worker Name Role Phone Jessica Navarro NP Primary Care Provider [phone] Reason for Referral * Diagnostic Imaging (Routine) - Closed Specialty Diagnoses / Procedures Referred By Contac t Referred To Contact Radiology Diagnoses Lumbar radiculopathy Procedures IR Transforaminal Epidural Injection Lumbar Sacral 1 Level Right Mia Wilson NP [address] [facility] [address] [place] [address] Phone: tel: fax: [address] [phone] Referral ID Status Reason Start Date Expiration Date Visits Re quested Visits Authorized [id number] Closed 02/25/2021 03/27/2021 1 1 Reason for Visit * Diagnostic Imaging (Routine) - Closed Specialty Diagnoses / Procedures Referred By Contac t Referred To Contact Radiology Diagnoses Lumbar radiculopathy Procedures IR Transforaminal Epidural Injection Lumbar Sacral 1 Level Right Mia Wilson NP [address] [facility] [address] [place] [address] Phone: tel: fax: [address] [phone] Referral ID Status Reason Start Date Expiration Date Visits Re quested Visits Authorized [id number] Closed 02/25/2021 03/27/2021 1 1 Encounter Details Date Type Department Care Team (Latest Contact Info) Description 03/01/2021 2:16 PM CDT - 03/01/2021 11:59 PM CDT Hospital Encounter [facility] at the [facility] [address] [facility] [place] [address] [place] [address] [place] [address] Lumbar radiculopathy (Primary Dx) Discharge Disposition: Discharge [...] PM CDT S1 Transforaminal Epidural Steroid Injection [facility] Department of Orthopedic Surgery Division of [...] mL documented in this encounter Care Teams Wine Cellar Worker Relationship Specialty Start Date End Date Melanie, Jessica Pitno NP [address] [place] [address] PCP - General 08/23/20 documented as of this encounter
--- OUTSIDE RECORDS SUMMARY | 2024-04-14 18:57 | XMS_ITS | Encounter Summary ---
Author Organization [facility] Address [address] [facility] [address] [place] [address] Phone Care Team Providers Care Alley Tender Name Role Phone Jessica Navarro NP Primary Care Provider Encounter Details Date Type Department Care Team (Late st Contact Info) Description 03/26/2021 Telephone [facility] Orthopaedic Surgery [address] [facility] 1st Floor [address] [place] [address] Sheba Osorio RMA Social History Tobacco Use [...] Will need to fax this information to [phone] TH HACKER documented in this encounter Plan of Treatment Not on file documented as of this encounter Visit Diagnoses Not on filedocumented in this encounter Care Teams Alley Tender Relationship Specialty Start Date End Date Navarro, Jessica Pinto NP [address] [place] [address] PCP - General 08/23/20 documented as of this encounter
--- OUTSIDE RECORDS SUMMARY | 2024-04-14 18:57 | XMS_ITS | Encounter Summary ---
Author Organization [facility] Address [address] [facility] [address] [place] [address] Phone Care Team Providers Care Reprint Sorter Name Role Phone Jessica Navarro NP Primary Care Provider Reason for Visit * Reason Onset Date Comments Injections 03/01/2021 pain diary Encounter Details Date Type Department Care Team (Late st Contact Info) Description 03/18/2021 Telephone [facility] Orthopaedic Surgery [address] [place] [address] Mia Wilson NP [address] [facility] [address] [place], [place] [id number] Injections (pain diary ) Social History Tobacco [...] is aware of the pre injection instructions. IT RISK SPECIALIST * Telephone Encounter - Mia Wilson NP - 03/19/2021 11:08 AM CST REC: Right L5-S1 TESI -- let her know this is targeting the nerve on the side of the leg IT RISK SPECIALIST * Telephone Encounter - Sheba Osorio RMA - 03/18/2021 2:36 PM CST I spoke to Lilli, she is 65% better, still having low back pain radiating down the side of her right leg to her toes. IT RISK SPECIALIST * Telephone Encounter - Mia Wilson NP - 03/18/2021 12:38 PM CST Is the pain still in the leg? IT RISK SPECIALIST * Telephone Encounter - Aneta Krueger - [...] you happy with your improvement level? Somewhat IT RISK SPECIALIST documented in this encounter Plan of Treatment Not on file documented as of this encounter Visit Diagnoses Not on filedocumented in this encounter Care Teams Reprint Sorter Relationship Specialty Start Date End Date Navarro, Jessica Pinto NP [address] [place] [address] PCP - General 08/23/20 documented as of this encounter
--- OUTSIDE RECORDS SUMMARY | 2024-04-14 18:57 | XMS_ITS | Encounter Summary ---
Author Organization [facility] Healthcare Address [address] [place] [address] Care Team Providers Care Product Consultant Name Role Phone Jessica Navarro NP Primary Care Provider [phone] Reason for Referral * Diagnostic Imaging (Routine) - Closed Specialty Diagnoses / Procedures Referred By Contac t Referred To Contact Diagnoses Radiculopathy, thoracic region Procedures XR Spine Thoracic 3 Vw Jessica Navarro NP [address] [place] [address] Phone: tel: fax: [address] [address] Referral ID Status Reason Start Date Expiration Date Visits Re quested Visits Authorized [id number] Closed 07/31/2020 08/30/2021 1 1 Reason for Visit * Diagnostic Imaging (Routine) - Closed Specialty Diagnoses / Procedures Referred By Contac t Referred To Contact Diagnoses Radiculopathy, thoracic region Procedures XR Spine Thoracic 3 Vw Jessica Navarro NP [address] [place] [address] Phone: tel: fax: [address] [phone] Referral ID Status Reason Start Date Expiration Date Visits Re quested Visits Authorized [id number] Closed 07/31/2020 08/30/2021 1 1 Encounter Details Date Type Department Care Team (Latest Contact Info) Description 07/31/2020 11:46 AM CDT - 07/31/2020 11:59 PM CDT Hospital Encounter [facility] [address] [place] [address] Nery Ireland MD [address] [place] [address] Jessica Navarro NP [address] [place] [address] Radiculopathy, thoracic region Discharge Disposition: Discharge to [...] signed by: Maurilio Kim M.D. Jessica Navarro MECHANICAL SYSTEM TECHNICIAN IMG XR PROCEDURES Final Resu lt * [...] unspecified documented in this encounter Care Teams Product Consultant Relationship Specialty Start Date End Date Navarro, Jessica Pinto NP [address] [place] [address] PCP - General 07/26/19 08/22/20 documented as of this encounter
--- OUTSIDE RECORDS SUMMARY | 2024-04-14 18:57 | XMS_ITS | Encounter Summary ---
Author Organization [facility] Healthcare Address [address] [place] [address] Care Team Providers Care Assault Amphibious Vehicle Officer Name Role Phone MelanieJohnJessicalambert Pinto NP Primary Care Provider [phone] Reason for Visit * Reason Comments PT Treatment Encounter Details Date Type Department Care Team (Late st Contact Info) Description 09/13/2020 3:15 PM CDT Therapy [facility] Physical Therapy [address] [place] [address] Jaye Zayas, PT Radiculopathy, thoracic region (Primary [...] unspecified documented in this encounter Care Teams Assault Amphibious Vehicle Officer Relationship Specialty Start Date End Date Melanie, Jessica Pinto NP [address] [place] [address] PCP - General 08/23/20 documented as of this encounter
--- OUTSIDE RECORDS SUMMARY | 2024-04-14 18:57 | XMS_ITS | Encounter Summary ---
Author Organization [facility] Address [address] [address] Care Team Providers Care Laborer Pullet Farm Name Role Phone Jessica Navarro NP Primary Care Provider Reason for Visit * Reason Comments Post-op Pain Encounter Details Date Type Department Care Team (Late st Contact Info) Description 07/19/2020 9:30 AM CDT Office Visit [facility] [address] [place] [address] Kishan Broussard MD [address] [address] Nontraumatic rupture of tendons of left foot [...] Primary documented in this encounter Care Teams Laborer Pullet Farm Relationship Specialty Start Date End Date Jessica Navarro NP [address] [place] [address] PCP - General 07/26/19 08/22/20 documented as of this encounter
--- OUTSIDE RECORDS SUMMARY | 2024-04-14 18:57 | XMS_ITS | Encounter Summary ---
Author Organization [facility] Address [address] [facility] [address] [place] [address] Care Team Providers Care Desktop Analyst Name Role Phone Jessica Navarro NP Primary Care Provider Encounter Details Date Type Department Care Team (Late st Contact Info) Description 08/29/2020 Telephone [facility] Orthopedics and Sports Medicine [address] [facility] [address] [address] Irvin Wolff MA Social History [...] on filedocumented in this encounter Care Teams Desktop Analyst Relationship Specialty Start Date End Date Navarro, Jessica Pinto NP [address] [place] [address] PCP - General 08/23/20 documented as of this encounter
--- OUTSIDE RECORDS SUMMARY | 2024-04-14 18:57 | XMS_ITS | Encounter Summary ---
Author Organization [facility] Healthcare Address [address] [place] [address] Care Team Providers Care Bobbin Trucker Name Role Phone Jessica Navarro NP Primary Care Provider Reason for Visit * Reason Comments PT Treatment Encounter Details Date Type Department Care Team (Late st Contact Info) Description 09/05/2020 11:15 AM CDT Therapy [facility] Physical Therapy [address] [place] [address] Beronica Contreras, PT Radiculopathy, thoracic region (Primary [...] unspecified documented in this encounter Care Teams Bobbin Trucker Relationship Specialty Start Date End Date Jessica Navarro NP [address] [place] [address] PCP - General 08/23/20 documented as of this encounter
--- OUTSIDE RECORDS SUMMARY | 2024-04-14 18:57 | XMS_ITS | Encounter Summary ---
Author Organization [facility] Healthcare Address [address] [place] [address] Care Team Providers Care Strategic Sourcing Specialist Name Role Phone Melanie Jessica Pinto NP Primary Care Provider Reason for Visit * Reason Comments PT Treatment Encounter Details Date Type Department Care Team (Late st Contact Info) Description 02/18/2021 1:45 PM CDT Therapy [facility] Physical Therapy [address] [place] [address] Christi Chanel, SCHOOL LABORATORY TECHNICIAN Left foot pain (Primary Dx) Social History [...] this encounter Progress Notes * Christi Chanel, SCHOOL LABORATORY TECHNICIAN - 02/18/2021 1:45 PM CDT PT Daily [...] limb documented in this encounter Care Teams Strategic Sourcing Specialist Relationship Specialty Start Date End Date Jessica Navarro NP [address] [place] [address] PCP - General 08/23/20 documented as of this encounter
--- OUTSIDE RECORDS SUMMARY | 2024-04-14 18:57 | XMS_ITS | Encounter Summary ---
Author Organization [facility] Healthcare Address [address] [place] [address] Care Team Providers Care Credit Balance Specialist Name Role Phone Melanie, Jessica Pinto NP Primary Care Provider Reason for Referral * Diagnostic Imaging (Routine) - Closed Specialty Diagnoses / Procedures Referred By Contac t Referred To Contact Diagnoses Left foot pain Tendinitis of ankle Procedures XR Ankle Left 3 [place] [address] [place] [address] Phone: tel: fax: [facility] Orthopedic Center Referral ID Status Reason Start Date Expiration Date Visits Re quested Visits Authorized [id number] Closed 12/28/2020 01/27/2022 1 1 Reason for Visit * Diagnostic Imaging (Routine) - Closed Specialty Diagnoses / Procedures Referred By Jonas reeves Referred To Contact Diagnoses Left foot pain Tendinitis of ankle Procedures XR Ankle Left 3 [place] [address] [place] [address] Phone: tel: fax: [facility] Orthopedic Center Referral ID Status Reason Start Date Expiration Date Visits Re quested Visits Authorized [id number] Closed 12/28/2020 01/27/2022 1 1 Encounter Details Date Type Department Care Team (Latest Contact Info) Description 01/10/2021 7:36 AM CDT - 01/10/2021 11:59 PM CDT Hospital Encounter [facility] Radiology at the Orthopedic Center [address] [place] [address] [place] [id number] [facility] [address] [place] [address] Left foot pain; Tendinitis of ankle Discharge [...] nausea or vomiting. 15 tablet 08/23/2020 2 frents Ultra Test strip CHECK BLOOD SUGAR 1-2 [...] ankle documented in this encounter Care Teams Credit Balance Specialist Relationship Specialty Start Date End Date Jessica Navarro NP [address] [place] [address] PCP - General 08/23/20 documented as of this encounter
--- OUTSIDE RECORDS SUMMARY | 2024-04-14 18:57 | XMS_ITS | Encounter Summary ---
Author Organization [facility] Address [address] [address] Care Team Providers Care Yacht Rigger Name Role Phone Jessica Navarro NP Primary Care Provider [phone] Reason for Visit * Reason Comments Follow-up Encounter Details Date Type Department Care Team (Late st Contact Info) Description 08/09/2020 9:40 AM CDT Office Visit [facility] [address] [place] [address] Kishan Broussard MD [address] [address] Nontraumatic rupture of tendons of left foot [...] Primary documented in this encounter Care Teams Yacht Rigger Relationship Specialty Start Date End Date Jessica Navarro NP [address] [place] [address] PCP - General 07/26/19 08/22/20 documented as of this encounter
--- OUTSIDE RECORDS SUMMARY | 2024-04-14 18:57 | XMS_ITS | Encounter Summary ---
Author Organization [facility] Healthcare Address [address] [place] [address] Care Team Providers Care Patient Relations Representative Name Role Phone MelanieJohnJessicalambert Pinto NP Primary Care Provider [phone] Reason for Visit * Reason Comments PT Treatment Encounter Details Date Type Department Care Team (Late st Contact Info) Description 08/29/2020 8:30 AM CDT Therapy [facility] Physical Therapy [address] [place] [address] Christi Chanel, MONITORING ENGINEER Radiculopathy, thoracic region (Primary Dx) Social History [...] this encounter Progress Notes * Christi Chanel MONITORING ENGINEER - 08/29/2020 8:30 AM CDT PT Daily [...] unspecified documented in this encounter Care Teams Patient Relations Representative Relationship Specialty Start Date End Date Jessica Navarro NP [address] [place] [address] PCP - General 08/23/20 documented as of this encounter
--- OUTSIDE RECORDS SUMMARY | 2024-04-14 18:57 | XMS_ITS | Encounter Summary ---
Author Organization [facility] Healthcare Address [address] [place] [address] Care Team Providers Care Account Financial Manager Name Role Phone Jessica Navarro NP Primary Care Provider Reason for Visit * Reason Comments PT Treatment Encounter Details Date Type Department Care Team (Late st Contact Info) Description 08/01/2020 10:45 AM CDT Therapy [facility] Physical Therapy [address] [place] [address] Jaye Zayas, PT Nontraumatic rupture of tendons [...] Primary documented in this encounter Care Teams Account Financial Manager Relationship Specialty Start Date End Date Melanie, Jessica Pinto NP [address] [place] [address] PCP - General 07/26/19 08/22/20 documented as of this encounter
--- OUTSIDE RECORDS SUMMARY | 2024-04-14 18:57 | XMS_ITS | Encounter Summary ---
Author Organization [facility] Healthcare Address [address] [place] [address] Care Team Providers Care Licensed Massage Therapist Name Role Phone Jessica Navarro NP Primary Care Provider Reason for Visit * Reason Comments PT Treatment Encounter Details Date Type Department Care Team (Late st Contact Info) Description 07/31/2020 10:00 AM CDT Therapy [facility] Physical Therapy [address] [place] [address] Jaye Zayas, PT Nontraumatic rupture of tendons [...] Primary documented in this encounter Care Teams Licensed Massage Therapist Relationship Specialty Start Date End Date Jessica Navarro NP [address] [place] [address] PCP - General 07/26/19 08/22/20 documented as of this encounter
--- OUTSIDE RECORDS SUMMARY | 2024-04-14 18:57 | XMS_ITS | Encounter Summary ---
Author Organization [facility] Address [address] [facility] [address] [place] [address] Care Team Providers Care Card Writer Hand Name Role Phone Jessica Navarro NP Primary Care Provider [phone] Encounter Details Date Type Department Care Team (Late st Contact Info) Description 08/29/2020 Telephone [facility] Orthopedics and Sports Medicine [address] [facility] [address], [place] [address] Irvin Wolff MA Social History [...] patient needs to see an ankle and career development specialist at [facility]. I called and spoke to [facility] office letting them know and they agree [...] on filedocumented in this encounter Care Teams Card Writer Hand Relationship Specialty Start Date End Date Melanie, Jessica Pinto NP [address] [place] [address] PCP - General 08/23/20 documented as of this encounter
--- OUTSIDE RECORDS SUMMARY | 2024-04-14 18:57 | XMS_ITS | Encounter Summary ---
Author Organization [facility] Healthcare Address [address] [place] [address] Care Team Providers Care Fusion Analyst Name Role Phone Jessica Navarro NP Primary Care Provider [phone] Reason for Visit * Reason Comments PT Treatment Encounter Details Date Type Department Care Team (Late st Contact Info) Description 07/17/2020 9:15 AM CDT Therapy [facility] Physical Therapy [address] [place] [address] Christi Chanel, COMBINATION TECHNICIAN Nontraumatic rupture of tendons of left foot [...] this encounter Progress Notes * Christi Chanel, COMBINATION TECHNICIAN - 07/17/2020 9:15 AM CDT PT Daily [...] Primary documented in this encounter Care Teams Fusion Analyst Relationship Specialty Start Date End Date Jessica Navarro NP [address] [place] [address] PCP - General 07/26/19 08/22/20 documented as of this encounter
--- OUTSIDE RECORDS SUMMARY | 2024-04-14 18:57 | XMS_ITS | Encounter Summary ---
Author Organization [facility] Healthcare Address [address] [place] [address] Care Team Providers Care Qa Automation Engineer Name Role Phone MelanieJohnJessicalambert Pinto NP Primary Care Provider Encounter Details Date Type Department Care Team (Late st Contact Info) Description 12/25/2020 Documentation [facility] Physical Therapy [address] [place] [address] Jaye Zayas, PT Social History Tobacco Use [...] on filedocumented in this encounter Care Teams Qa Automation Engineer Relationship Specialty Start Date End Date Navarro, Jessica Pinto NP [address] [place] [address] PCP - General 08/23/20 documented as of this encounter
--- OUTSIDE RECORDS SUMMARY | 2024-04-14 18:57 | XMS_ITS | Encounter Summary ---
Author Organization [facility] Address [address] [facility] [address] [place] [address] Phone Care Team Providers Care Bottle Capping Machine Operator Name Role Phone Jessica Navarro NP Primary Care Provider Encounter Details Date Type Department Care Team (Late st Contact Info) Description 04/03/[address] [facility] Orthopaedic Surgery [address] [place] [address] Sheba Osorio RMA Social History Tobacco Use [...] on filedocumented in this encounter Care Teams Bottle Capping Machine Operator Relationship Specialty Start Date End Date Jessica Navarro NP [address] [place] [address] PCP - General 08/23/20 documented as of this encounter
--- OUTSIDE RECORDS SUMMARY | 2024-04-14 18:57 | XMS_ITS | Encounter Summary ---
Author Organization [facility] Address [address] [address] Care Team Providers Care Group Chief Operator Name Role Phone Jessica Navarro NP Primary Care Provider Reason for Visit * Reason Comments Follow-up Encounter Details Date Type Department Care Team (Late st Contact Info) Description 10/01/2020 9:10 AM CDT Office Visit [facility] [address] [place] [address] Kishan Broussard MD [address] [address] Nontraumatic rupture of tendons of left foot [...] at 1 time. She also attempted to pick pulling machine operator the Medrol Dosepak but the pharmacist said [...] as of this encounter Care Teams Group Chief Operator Relationship Specialty Start Date End Date Jessica Navarro NP [address] [place] [address] PCP - General 08/23/20 documented as of this encounter
--- OUTSIDE RECORDS SUMMARY | 2024-04-14 18:57 | XMS_ITS | Encounter Summary ---
Author Organization [facility] Healthcare Address [address] [place] [address] Care Team Providers Care Weaver Hand Loom Name Role Phone Jessica Navarro NP Primary Care Provider Reason for Visit * Reason Comments PT Treatment Encounter Details Date Type Department Care Team (Late st Contact Info) Description 06/27/2020 9:15 AM VACUUM TESTER CANS Therapy [facility] Physical Therapy [address] [place] [address] Christi Chanel, NURSING COORDINATOR Nontraumatic rupture of tendons of left foot [...] this encounter Progress Notes * Christi Chanel NURSING COORDINATOR - 06/27/2020 9:15 AM CST PT Daily [...] pt tolerates. Start Time: 920 End Time:1000 Chritsi Chanel PTA UM TESTER CANS documented in this encounter Plan of Treatment Not on file documented as of this encounter Visit Diagnoses Diagnosis Nontraumatic rupture of tendons of left foot and ankle- Primary documented in this encounter Care Teams Weaver Hand Loom Relationship Specialty Start Date End Date Jessica Navarro NP [address] [place] [address] PCP - General 07/26/19 08/22/20 documented as of this encounter
--- OUTSIDE RECORDS SUMMARY | 2024-04-14 18:57 | XMS_ITS | Encounter Summary ---
Author Organization [facility] Healthcare Address [address] [place] [address] Care Team Providers Care Retail Assistant Store Manager Name Role Phone Jessica Navarro NP Primary Care Provider Reason for Visit * Reason Comments PT Treatment Encounter Details Date Type Department Care Team (Late st Contact Info) Description 07/23/2020 9:15 AM CDT Therapy [facility] Physical Therapy [address] [place] [address] Jaye Zayas, PT Nontraumatic rupture of tendons [...] documented in this encounter Care Teams Retail Assistant Store Manager Relationship Specialty Start Date End Date Jessica Navarro NP [address] [place] [address] PCP - General 07/26/19 08/22/20 documented as of this encounter
--- OUTSIDE RECORDS SUMMARY | 2024-04-14 18:57 | XMS_ITS | Encounter Summary ---
Author Organization [facility] Healthcare Address [address] [place] [address] Care Team Providers Care Materials Clerk Name Role Phone Jessica Navarro NP Primary Care Provider Encounter Details Date Type Department Care Team (Late st Contact Info) Description 06/29/2020 10:00 AM DOMESTIC VIOLENCE COUNSELOR Therapy [facility] Physical Therapy [address] [place] [address] Jaye Zayas, PT Nontraumatic rupture of tendons [...] 955 End Time:1040 Jaye Zayas PT, DPT STIC VIOLENCE COUNSELOR documented in this encounter Plan of Treatment Not on file documented as of this encounter Visit Diagnoses Diagnosis Nontraumatic rupture of tendons of left foot and ankle- Primary documented in this encounter Care Teams Materials Clerk Relationship Specialty Start Date End Date Jessica Navarro NP [address] [place] [address] PCP - General 07/26/19 08/22/20 documented as of this encounter
--- OUTSIDE RECORDS SUMMARY | 2024-04-14 18:57 | XMS_ITS | Encounter Summary ---
Author Organization [facility] Healthcare Address [address] [place] [address] Care Team Providers Care Operating Manager Name Role Phone Jessica Navarro NP Primary Care Provider Reason for Visit * Reason Comments PT Discharge Encounter Details Date Type Department Care Team (Late st Contact Info) Description 02/21/2021 7:45 AM CDT Therapy [facility] Physical Therapy [address] [place] [address] Seema Oakley, PT Left foot pain (Primary [...] limb documented in this encounter Care Teams Operating Manager Relationship Specialty Start Date End Date Jessica Navarro NP [address] [place] [address] PCP - General 08/23/20 documented as of this encounter
--- OUTSIDE RECORDS SUMMARY | 2024-04-14 18:57 | XMS_ITS | Encounter Summary ---
Author Organization [facility] Address [address] [facility] [address] [place] [address] Phone Care Team Providers Care Industrial Cook Name Role Phone Navarro, Jessica Pinto NP Primary Care Provider [phone] Reason for Referral * Consultation (Routine) - Closed Specialty Diagnoses / Procedures Referred By Jonas reeves Referred To Contact Physical Therapy Diagnoses Left foot pain [place] [address] [place] [address] Phone: tel: fax: External Order Referral ID Status Reason Start Date Expiration Date V isits Requested Visits Authorized [id number] Closed Specialty Services Required 01/10/2021 02/09/2022 24 [...] times per week for 6-8 weeks MD Yonyn Crum MD Your physical therapy provider may complete the pre-certification process on your behalf. If you need assistance from the orthopedic pre-certification office, please call [phone] and a java development team lead will assist you. * Diagnostic Imaging (Routine) - Closed Specialty Diagnoses / Procedures Referred By Contac t Referred To Contact Diagnoses Left foot pain Tendinitis of ankle Procedures XR Ankle Left 3 [place] [address] [place] [address] Phone: tel: fax: [facility] Referral ID Status Reason Start Date Expiration Date Visits Re quested Visits Authorized [id number] Closed 12/28/2020 01/27/2022 1 1 Reason for Visit * Reason Comments Pain Encounter Details Date Type Department Care Team (Late st Contact Info) Description 01/10/2021 7:40 AM CDT Office Visit [facility] [address] [place] [address] [place] [address] [place] [address] Left foot pain (Primary Dx); Tendinitis of [...] Sheis not currently working, previously worked at [employer] and at [employer], she does think that this pain is [...] answered. Follow-up as needed Yonny Eric MD Casing Finisher And Stuffer Foot and Ankle Surgery [facility] Yonny Eric MD dictating using [employer] Software. Dancing Teacher variances may occur. documented in this encounter [...] ankle documented in this encounter Care Teams Industrial Cook Relationship Specialty Start Date End Date Navarro, Jessica Pinto NP [address] [place], [place] [id number] PCP - General 08/23/20 documented as of this encounter
--- OUTSIDE RECORDS SUMMARY | 2024-04-14 18:57 | XMS_ITS | Encounter Summary ---
Author Organization [facility] Healthcare Address [address] [place] [address] Care Team Providers Care Nutritionist Public Health Name Role Phone Jessica Navarro NP Primary Care Provider [phone] Reason for Referral * Diagnostic Imaging (Routine) - Closed Specialty Diagnoses / Procedures Referred By Contac t Referred To Contact Radiology Diagnoses Lumbar radiculopathy Procedures IR Transforaminal Epidural Injection Lumbar Sacral 1 Level Right Mia Wilson NP [address] [facility] [address] [place] [address] Phone: tel: fax: [address] [phone] Referral ID Status Reason Start Date Expiration Date Visits Re quested Visits Authorized [id number] Closed 03/29/2021 06/27/2021 1 1 THE HORIZON TARGETING SUPERVISOR Reason for Visit * Diagnostic Imaging (Routine) - Closed Specialty Diagnoses / Procedures Referred By Contac t Referred To Contact Radiology Diagnoses Lumbar radiculopathy Procedures IR Transforaminal Epidural Injection Lumbar Sacral 1 Level Right Mia Wilson NP [address] [facility] [address] [place] [address] Phone: tel: fax: [address] [phone] Referral ID Status Reason Start Date Expiration Date Visits Re quested Visits Authorized [id number] Closed 03/29/2021 06/27/2021 1 1 Encounter Details Date Type Department Care Team (Latest Contact Info) Description 04/08/2021 1:49 PM OVER THE HORIZON TARGETING SUPERVISOR - 04/08/2021 11:59 PM OVER THE HORIZON TARGETING SUPERVISOR Hospital Encounter [facility] [address] [facility] [place] [address] MohinderSalDO [address] [place] [address] Lumbar radiculopathy (Primary Dx) Discharge Disposition: Discharge [...] Comments Blood Pressure 125/75 04/08/2021 3:03 PM OVER THE HORIZON TARGETING SUPERVISOR Pulse 70 04/08/2021 3:03 PM OVER THE HORIZON TARGETING SUPERVISOR Temperature - - Respiratory Rate 18 04/08/2021 3:03 PM OVER THE HORIZON TARGETING SUPERVISOR Oxygen Saturation 99% 04/08/2021 3:03 PM OVER THE HORIZON TARGETING SUPERVISOR Inhaled Oxygen Concentration - - Weight - [...] PM CST Lumbar Transforaminal Epidural Steroid Injection [facility] Department of Orthopedic Surgery Division of [...] for the procedure above. Robi Vines DO THE HORIZON TARGETING SUPERVISOR documented in this encounter Plan of Treatment Not on file documented as of this encounter Procedures Procedure Name Priority Date/Time Associated Diagnosis Comments TRANSFORAMINAL EPIDURAL INJECTION LUMBAR SACRAL 1 LEVEL RIGHT Schedule Routine, Read Routine (OP Routine) 04/08/2021 2:56 PM OVER THE HORIZON TARGETING SUPERVISOR Lumbar radiculopathy documented in this encounter Results * IR Transforaminal Epidural Injection Lumbar Sacral 1 Level Right (04/08/2021 2:56 PM OVER THE HORIZON TARGETING SUPERVISOR) Narrative [id number] - 04/08/2021 2:57 PM OVER THE HORIZON TARGETING SUPERVISOR The images from this study are not [...] Thu04/08/21 at 1444 Given 04/08/2021 2:44 PM OVER THE HORIZON TARGETING SUPERVISOR 10 mg iohexoL (OMNIPAQUE) 300 mg iodine/mL injection solution Code/trauma/sedation medication, Starting on Thu04/08/21 at 1445 Given 04/08/2021 2:45 PM OVER THE HORIZON TARGETING SUPERVISOR 0.5 mL lidocaine PF (XYLOCAINE) 10 mg/mL (1 %) preservative free injection Code/trauma/sedation medication, Starting on Thu04/08/21 at 1444, Intra-Procedure (IR), Indications: Administration of Local AnesthesiaIndications:Administrati on of Local Anesthesia Given 04/08/2021 2:44 PM OVER THE HORIZON TARGETING SUPERVISOR 1 mL documented in this encounter Care Teams Nutritionist Public Health Relationship Specialty Start Date End Date Jessica Navarro NP [address] [place] [address] PCP - General 08/23/20 documented as of this encounter
--- OUTSIDE RECORDS SUMMARY | 2024-04-14 18:57 | XMS_ITS | Encounter Summary ---
Author Organization [facility] Healthcare Address [address] [place] [address] Care Team Providers Care Vice President Global Advertising Sales Name Role Phone Jessica Navarro NP Primary Care Provider [phone] Reason for Referral * MRI/CAT/PET Scan (Routine) - Closed Specialty Diagnoses / Procedures Referred By Contac t Referred To Contact Radiology Diagnoses Lumbar radiculopathy Procedures MRI Lumbar Spine WO Contrast Renard Naqvi MD Phone: tel: fax: [address] [address] Referral ID Status Reason Start Date Expiration Date Visits Re quested Visits Authorized [id number] Closed 02/05/2021 05/06/2021 1 1 Reason for Visit * MRI/CAT/PET Scan (Routine) - Closed Specialty Diagnoses / Procedures Referred By Contac t Referred To Contact Radiology Diagnoses Lumbar radiculopathy Procedures MRI Lumbar Spine WO Contrast Renard Naqvi MD Phone: tel: fax: [address] [address] Referral ID Status Reason Start Date Expiration Date Visits Re quested Visits Authorized [id number] Closed 02/05/2021 05/06/2021 1 1 Encounter Details Date Type Department Care Team (Late st Contact Info) Description 02/11/2021 11:19 AM CDT - 02/11/2021 11:59 PM CDT Hospital Encounter [facility] [address] [place] [address] Renard Naqvi MD [address] [place] [address] Lumbar radiculopathy Discharge Disposition: Discharge to home [...] unspecified documented in this encounter Care Teams Vice President Global Advertising Sales Relationship Specialty Start Date End Date Navarro, Jessica Pinto NP [address] [place] [address] PCP - General 08/23/20 documented as of this encounter
--- OUTSIDE RECORDS SUMMARY | 2024-04-14 18:57 | XMS_ITS | Encounter Summary ---
Author Organization [facility] Address [address] [facility] [address] [place] [address] Phone Care Team Providers Care Mortgage Lender Name Role Phone Melanie, Jessica Pinto NP Primary Care Provider [phone] Reason for Referral * Diagnostic Imaging (Routine) - Closed Specialty Diagnoses / Procedures Referred By Contac t Referred To Contact Radiology Diagnoses Lumbar radiculopathy Procedures IR Transforaminal Epidural Injection Lumbar Sacral 1 Level Right Mia Wilson NP [address] [facility] [address] [place] [address] Phone: tel: fax: [address] [address] Referral ID Status Reason Start Date Expiration Date Visits Re quested Visits Authorized [id number] Closed 02/25/2021 03/27/2021 1 1 * Consultation (Routine) - Closed Specialty Diagnoses / Procedures Referred By Contac t Referred To Contact Physical Therapy Diagnoses Lumbar radiculopathy Mia Wilson NP [address] [facility] [address] [place] [address] Phone: tel: fax: [facility] [address] [place] [address] Phone: tel: fax: Referral ID Status Reason Start Date Expiration Date V isits Requested Visits Authorized [id number] Closed Specialty Services Required 02/20/2021 03/22/2022 8 8 Question Answer PTRFR PT Evaluate and Treat Reason for Visit Low back pain with right S1 radiculopathy Therapy options discussed with patient? Yes Location provided for therapy services is: Patient requested/Patient preferred Please select the performing region: External Order [[id number]] To loc/pos [facility] [[id number]] # of visits: 8 Comments DX: Low [...] PLEASE FAX REPORTS THAT REQUIRE A SIGNATURE: [phone] Mia Wilson NP PLEASE CALL IF QUESTIONS [phone] [facility] [address] [place] [address] Encounter Details Date Type Department Care Team (Latest Contact Info) Description 02/20/2021 9:30 AM CDT Office Visit [facility] Orthopaedic Surgery [address] [facility] 1st Floor [address] [place] [address] Mia Wilson NP [address] [facility] [address] [place] [address] Lumbar radiculopathy (Primary Dx) Social History Tobacco [...] regarding your procedure, contact our office at [phone]. About the procedure: A mixture of a [...] regarding your procedure, contact our office at [phone]. Prior to the procedure: ??? Allergies to [...] the additional guidelines below: ??? Check fasting (eeg technologist prior to first meal of the day) [...] dosing is warranted. Procedure Billing: ??? Our [facility] orthopedic specialists treat patients at [facility] facilities, which means you may receive two separate bills. One bill is for the physician and the other is for the facility charges. If you have questions regarding a escobedo estimation for the services or a recently received bill, please contact: o [facility] Escobedo Estimation: [phone] or toll free [phone] o [facility] Patient Services: [phone] or toll free [phone] o [facility] Patient Billing Services: [phone] or toll free [phone] documented in this encounter Progress Notes * [...] 6 weeks for re-evaluation. Mia Wilson RN, ANP-[facility] Orthopedics Division of Physical Medicine and [...] / OR operative note. us Mia Wilson CHECK GRADER IMG IR PROCEDURES Final Resul t [id number] [...] 04/14/2022 added in this encounter Care Teams Mortgage Lender Relationship Specialty Start Date End Date Navarro, Jessica Pinto NP [address] [place], [place] [id number] PCP - General 08/23/20 documented as of this encounter
--- OUTSIDE RECORDS SUMMARY | 2024-04-14 18:57 | XMS_ITS | Encounter Summary ---
Author Organization [facility] Healthcare Address [address] [place] [address] Care Team Providers Care Resource Manager Forester Name Role Phone Jessica Navarro HATCHERY ATTENDANT Primary Care Provider [phone] Jessica Navarro HATCHERY ATTENDANT Primary Care Provider + [phone] Reason for Visit * Reason Comments Abdominal Pain Vomiting Encounter Details Date Type Department Care Team (Late st Contact Info) Description 08/22/2020 10:44 PM CDT - 08/23/2020 2:07 AM CDT Emergency [facility] Emergency Department [address] [place], [place] [id number] Miriam Alvarez MD [address] [address] Vomiting and diarrhea (Primary Dx); Viral gastroenteritis; [...] through Care Everywhere. * Gastroenteritis, Viral (Adult) (Burkinan) documented in this encounter Medications at Time [...] doctor ED Course as of Aug 23 8751 Time: 08/22 2342 Value: Hepatic function panel(!): [...] AM T: ??08/23/2020 12:47 AM Report ID: [id number] Reading Location: ??[id number] Procedure Note Maurilio Gutierrez MD - 08/23/2020 [...] by Maurilio Gutierrez ML: ML Report ID: [id number] Reading Location: [place] [address] Miriam Alvarez MD IMG CT PROCEDURES Final [...] Jesusita mike Result [facility] ([place]) 1 [facility] [place] [address] * (ABNORMAL) Urinalysis reflex to microscopic and [...] Ketones, ur Trace Negative [facility] ([place]) Bilirubin, ur 1+(A) Negative [facility] ([place]) [...] L ORDERABLES Final Result Performing Organization Address City/[facility]/ZIP Co de Phone Number [facility] ARGUELLES ([place]) 1 [facility] [place] [address] * eGFR (08/22/2020 10:18 PM CDT) eGFR 113 mL/min/1.7 3 m2 [facility] ([place]) Comment: Interpretive Data Reference Interval Normal ?>/= [...] ORDERABLES Jesusita l Result Performing Organization Address City/[facility]/ZIP Co de Phone Number [facility] AR[facility] ([place]) 1 [facility] [place] [address] * Differential, auto (08/22/2020 10:18 PM CDT) [...] ORDERABLES Jesusita l Result Performing Organization Address City/[facility]/ZIP Co de Phone Number [facility] ARG[facility]LL[facility] ([place]) 1 [place] [address] * Lipase (08/22/2020 10:18 PM CDT) Pathologist [facility] Lipase 18 10 - 99 Units/L [facility] ([place]) Blood specimen (specimen) (Blood, Venous) 08/22/2020 10:18 PM CDT 08/22/2020 10:20 PM CDT Miriam Alvarez MD LAB BLOOD ORDERABLES Jesusita l Result Performing Organization Address [facility] Co de Phone Number [facility] ([place]) [address] [place] [address] [place] [address] * (ABNORMAL) Hepatic function panel (08/22/2020 10:18 PM CDT) Bilirubin, total 0.8 0.1 - 1.2 mg/dL [facility] ([place]) Bilirubin, direct <0.2 0.1 - 0.3 mg/dL [facility] ([place]) Protein, pl 7.7 6.5 - 8.5 g/dL [facility] ([place]) Albumin 4.4 3.5 - 5.0 g/dL [facility] ([place]) Alk phos 84 40 - 130 Units/L [facility] ([place]) ALT 142(H) 7 - 45 Units/L [facility] ([place]) AST 115(H) 10 - 45 Units/L [facility] ([place]) Blood specimen (specimen) (Blood, Venous) 08/22/2020 10:18 PM CDT 08/22/2020 10:20 PM CDT Miriam Alvarez MD LAB BLOOD ORDERABLES Jesusita l Result [facility] ([place]) 1 [facility] [place] [address] * Basic metabolic panel (08/22/2020 10:18 PM CDT) [facility] Sodium 139 135 - 145 mmol/L [...] ([place]) Glucose 192 70 - 199 mg/dL [facility] ([place]) Comment: Interpretive Data Fasting [...] 2017. Calcium 9.5 8.5 - 10.3 mg/dL [facility] ([place]) Blood specimen (specimen) 08/22/2020 10:18 PM CDT 08/22/2020 10:20 PM CDT Miriam Alvarez MD LAB BLOOD ORDERABLES Jesusita l Result [facility] ([place]) 1 [facility] [place] [address] * CBC with auto differential (08/22/2020 10:18 PM CDT) WBC 9.9 3.8 - 9.9 K/cumm [facility] ([place]) Hgb 14.9 11.9 - 15.5 g/dL [facility] ([place]) Hct 42.8 35.6 - 45.5 % [facility] ([place]) Plt 268 150 - 400 K/cumm [facility] ([place]) MPV 11.0 9.1 - 12.3 fL [facility] ([place]) RBC 4.83 3.90 - 5.20 M/cumm [facility] ([place]) MCV 88.6 81.3 - 96.4 fL [facility] ([place]) MCH 30.8 27.1 - 33.3 pg [facility] ([place]) MCHC 34.8 32.3 - 35.7 g/dL [facility] ([place]) RDW CV 11.6 11.1 - 14.9 % [facility] ([place]) RDW SD 36.7 35.7 - 48.1 fL [facility] ([place]) NRBC abs 0.00 0.00 - 0.01 K/cumm [facility] ([place]) Blood specimen (specimen) (Blood, Venous) 08/22/2020 10:18 PM CDT 08/22/2020 10:20 PM CDT us Miriam Alvarez MD LAB BLOOD ORDERABLES Jesusita mckeon Result [facility] ([place]) 1 [facility] [place] [address] documented in this encounter Visit Diagnoses Diagnosis [...] 08/22/2020 documented in this encounter Care Teams Resource Manager Forester Relationship Specialty Start Date End Date Jessica Navarro NP [address] [place] [address] PCP - General 07/26/19 08/22/20 Jessica Navarro NP [address] [place] [address] PCP - General 08/23/20 documented as of this encounter
--- OUTSIDE RECORDS SUMMARY | 2024-04-14 18:57 | XMS_ITS | Encounter Summary ---
Author Organization [facility] Address [address] [facility] [address] [place] [address] Phone Care Team Providers Care Repair Mechanic Name Role Phone Jessica Navarro NP Primary Care Provider Encounter Details Date Type Department Care Team (Latest Contact Info) Description 04/03/2021 1:30 PM BALANCE RECESSER Office Visit [facility] Orthopaedic Surgery [address] [employer] 1st Floor [address] [place] [address] Mia Wilson NP [address] [facility] [address] [place] [address] Lumbar radiculopathy (Primary Dx) Social History Tobacco [...] encounter Progress Notes * Katie, Mia A., WILDLIFE VETERINARIAN - 04/03/2021 1:30 PM CST RETURN PATIENT [...] addressed. Mia Wilson RN, ANP-BC Nurse Practitioner [facility] Orthopedics Division of Physical Medicine and Rehabilitation [...] directly addressed to the provider for clarification. NCE RECESSER documented in this encounter Plan of Treatment [...] 04/14/2023 added in this encounter Care Teams Repair Mechanic Relationship Specialty Start Date End Date Jessica Navarro NP [address] [place] [address] PCP - General 08/23/20 documented as of this encounter
--- OUTSIDE RECORDS SUMMARY | 2024-04-14 18:57 | XMS_ITS | Encounter Summary ---
Author Organization [facility] Healthcare Address [address] [place] [address] Care Team Providers Care Heel Cementer Name Role Phone Jessica Navarro NP Primary Care Provider Reason for Visit * Reason Comments PT Treatment Encounter Details Date Type Department Care Team (Late st Contact Info) Description 09/11/2020 4:45 PM CDT Therapy [facility] Physical Therapy [address] [place] [address] Jaye Zayas, PT Radiculopathy, thoracic region (Primary [...] unspecified documented in this encounter Care Teams Heel Cementer Relationship Specialty Start Date End Date Melanie, Jessica Pinto NP [address] [place] [address] PCP - General 08/23/20 documented as of this encounter
--- OUTSIDE RECORDS SUMMARY | 2024-04-14 18:58 | XMS_ITS | Encounter Summary ---
Author Organization [facility] Address [address] [address] Care Team Providers Care Air Cargo Specialist Name Role Phone Jessica Navarro NP Primary Care Provider [phone] Reason for Visit * Reason Comments Follow-up Test Results Pain Encounter Details Date Type Department Care Team (Late st Contact Info) Description 03/29/2020 11:00 AM MOTOR LODGE CLERK Office Visit [facility] [address] [place] [address] Kishan Broussard MD [address] [address] Tendinitis of ankle (Primary Dx) Social History [...] 36.1 ??C (97 ??F) 03/29/2020 11:09 AM MOTOR LODGE CLERK Respiratory Rate - - Oxygen Saturation - - Inhaled Oxygen Concentration - - Weight 90.3 kg (199 lb) 03/29/2020 11:09 AM MOTOR LODGE CLERK Height 160 cm (5' 3 ) 03/29/2020 11:09 AM MOTOR LODGE CLERK Body Mass Index 35.25 03/29/2020 11:09 AM MOTOR LODGE CLERK documented in this encounter Patient Instructions * Patient Instructions* Kishan Broussard MD - 03/29/2020 11:00 AM MOTOR LODGE CLERK The risks benefits potential complications prognosis for recovery and realistic expectations have been discussed with the patient and they are in agreement with the proposed plan. R LODGE CLERK documented in this encounter Progress Notes * [...] are in agreement with the proposed plan. R LODGE CLERK documented in this encounter Plan of Treatment Not on file documented as of this encounter Visit Diagnoses Diagnosis Tendinitis of ankle- Primary documented in this encounter Care Teams Air Cargo Specialist Relationship Specialty Start Date End Date Melanie, Jessica Pinto NP [address] [place] [address] PCP - General 07/26/19 08/22/20 documented as of this encounter
--- OUTSIDE RECORDS SUMMARY | 2024-04-14 18:58 | XMS_ITS | Encounter Summary ---
Author Organization [facility] Healthcare Address [address] [place] [address] Care Team Providers Care Feed Grinder Name Role Phone Jessica Navarro NP Primary Care Provider [phone] Reason for Visit * Reason Comments PT Treatment Encounter Details Date Type Department Care Team (Late st Contact Info) Description 01/23/2020 1:45 PM CDT Therapy [facility] Physical Therapy [address] [place] [address] Jaye Zaays, PT Other instability, right ankle (Primary Dx) [...] Primary documented in this encounter Care Teams Feed Grinder Relationship Specialty Start Date End Date Melanie, Jessica Pinto NP [address] [place] [address] PCP - General 07/26/19 08/22/20 documented as of this encounter
--- OUTSIDE RECORDS SUMMARY | 2024-04-14 18:58 | XMS_ITS | Encounter Summary ---
Author Organization [facility] Address [address] [address] Care Team Providers Care House Visitor Name Role Phone Jessica Navarro NP Primary Care Provider Encounter Details Date Type Department Care Team (Late st Contact Info) Description 04/19/2020 Telephone [facility] [address] [place] [address] Delisa Rivas RN Social History Tobacco [...] in the ofc-please see that ofc note. TRICAL ENGINEER * Telephone Encounter - Delisa Rivas RN [...] 04/26/20-call sooner if needed. She voices understanding. TRICAL ENGINEER documented in this encounter Plan of Treatment Not on file documented as of this encounter Visit Diagnoses Not on filedocumented in this encounter Care Teams House Visitor Relationship Specialty Start Date End Date Navarro, Jessica Pinto NP [address] [place] [address] PCP - General 07/26/19 08/22/20 documented as of this encounter
--- OUTSIDE RECORDS SUMMARY | 2024-04-14 18:58 | XMS_ITS | Encounter Summary ---
Author Organization [facility] Address [address] [place] [address] Phone Care Team Providers Care Cylinder Batcher Name Role Phone Navarro, Jessica Pinto NP Primary Care Provider [phone] Encounter Details Date Type Department Care Team (Late st Contact Info) Description 03/27/2020 Orders Only [facility] [address] [place] [address] Scanning, Provider Social History Tobacco [...] Comments SCAN - RADIOLOGY/IMAGING 03/27/2020 1:12 PM EPILEPSY PHYSICIAN documented in this encounter Results * SCAN - RADIOLOGY/IMAGING (03/27/2020 1:12 PM EPILEPSY PHYSICIAN) Anatomical Region Laterality Modality Other us Provider Scanning Final Result documented in this encounter Visit Diagnoses Not on filedocumented in this encounter Care Teams Cylinder Batcher Relationship Specialty Start Date End Date Navarro, Jessica Pinto NP [address] [place] [address] PCP - General 07/26/19 08/22/20 documented as of this encounter
--- OUTSIDE RECORDS SUMMARY | 2024-04-14 18:58 | XMS_ITS | Encounter Summary ---
Author Organization [facility] Healthcare Address [address] [place] [address] Care Team Providers Care Senior Sharepoint Developer Name Role Phone Jessica Navarro NP Primary Care Provider [phone] Encounter Details Date Type Department Care Team (Late st Contact Info) Description 04/14/2020 7:30 AM CITY TREASURER Lab [address] [address] Kishan Broussard MD [address] [place] [address] Pre-procedure lab exam Discharge Disposition: Discharge to [...] COVID-19 CORONAVIRUS RNA Routine 04/14/2020 7:40 AM CITY TREASURER Pre-procedure lab exam documented in this encounter Results * COVID-19 Coronavirus RNA Nasopharyngeal (04/14/2020 7:40 AM CITY TREASURER) COVID-19 RNA Not Detected [facility] [...] COVID-19. Interpretive Data Testing performed by the [facility] Molecular Infectious Disease Laboratory. The 2018-Novel [...] [facility] ([place]) Comment:Testing performed by : [facility], [address] [place] [address], [place]., [address] Employeed in healthcare? Unknown [facility] ([place]) Comment:Testing performed by : [facility], [address] [place] [address], [place]., [address] status? No CE [facility] ([place]) Comment:Testing performed by : [facility], [address] [place] [address], [place]., [address] Group care resident? No [facility] ([place]) Comment:Testing performed by : [facility], [address] [place] [address]., [address] Hospitalized? Unknown [facility] ([place]) Comment:Testing performed by : [address] [place]., [address] Is patient in ICU? Unknown [facility] ([place]) Comment:Testing performed by : [facility], [address] [place]., [address] Symptomatic as defined by CDC? No [facility] ARGUELL[facility] ([place]) Comment:Testing performed by : [facility], [address] [place]., [address] Nasopharyngeal 04/14/2020 7: 40 AM CITY TREASURER 04/14/2020 1:22 PM CITY TREASURER Narrative [facility] ([place]) - 04/15/2020 2:37 PM CITY TREASURER What is the reason for testing?->Screening prior to scheduled procedure or surgery Kishan Broussard MD LAB MICROBIOLOGY - [facility] ORDERABLES Final Result [facility] AR[facility] ([place]) 1 [facility] Department [place] [address] documented in this encounter Visit Diagnoses Diagnosis Pre-procedure lab exam Pre-procedural laboratory examination documented in this encounter Care Teams Senior Sharepoint Developer Relationship Specialty Start Date End Date Navarro, Jessica Pinto NP [address] [place] [address] PCP - General 07/26/19 08/22/20 documented as of this encounter
--- OUTSIDE RECORDS SUMMARY | 2024-04-14 18:58 | XMS_ITS | Encounter Summary ---
Author Organization [facility] Healthcare Address [address] [place] [address] Care Team Providers Care Community Recreation Coordinator Name Role Phone Jessica Navarro NP Primary Care Provider Reason for Visit * Reason Comments PT Treatment Encounter Details Date Type Department Care Team (Late st Contact Info) Description 06/15/2020 10:15 AM BILINGUAL CUSTOMER SERVICE Therapy [facility] Physical Therapy [address] [place] [address] Jaye Zayas, PT Nontraumatic rupture of tendons [...] 830 End Time:915 Jaye Zayas PT, DPT NGUAL CUSTOMER SERVICE documented in this encounter Plan of Treatment Not on file documented as of this encounter Visit Diagnoses Diagnosis Nontraumatic rupture of tendons of left foot and ankle- Primary documented in this encounter Care Teams Community Recreation Coordinator Relationship Specialty Start Date End Date Jessica Navarro NP [address] [place] [address] PCP - General 07/26/19 08/22/20 documented as of this encounter
--- OUTSIDE RECORDS SUMMARY | 2024-04-14 18:58 | XMS_ITS | Encounter Summary ---
Author Organization [facility] Healthcare Address [address] [place] [address] Care Team Providers Care Hazmat Truck Driver Name Role Phone Jessica Navarro NP Primary Care Provider Reason for Visit * Reason Comments PT Treatment Encounter Details Date Type Department Care Team (Late st Contact Info) Description 02/09/2020 1:45 PM CDT Therapy [facility] Physical Therapy [address] [place] [address] Christi Chanel, GEEK SQUAD MANAGER Other instability, right ankle (Primary Dx) Social [...] this encounter Progress Notes * Christi Chanel, GEEK SQUAD MANAGER - 02/09/2020 1:45 PM CDT PT Daily [...] Primary documented in this encounter Care Teams Hazmat Truck Driver Relationship Specialty Start Date End Date Jessica Navarro NP [address] [place] [address] PCP - General 07/26/19 08/22/20 documented as of this encounter
--- OUTSIDE RECORDS SUMMARY | 2024-04-14 18:58 | XMS_ITS | Encounter Summary ---
Author Organization [facility] Healthcare Address [address] [place] [address] Care Team Providers Care Wallcovering Hanger Name Role Phone Jessica Navarro NP Primary Care Provider Reason for Visit * Reason Comments PT Treatment Encounter Details Date Type Department Care Team (Late st Contact Info) Description 06/19/2020 9:15 AM AUDIT DIRECTOR Therapy [facility] Physical Therapy [address] [place] [address] Jaye Zayas, PT Nontraumatic rupture of tendons [...] Time:915 End Time:1000 Jaye Zayas PT, DPT T DIRECTOR documented in this encounter Plan of Treatment Not on file documented as of this encounter Visit Diagnoses Diagnosis Nontraumatic rupture of tendons of left foot and ankle- Primary documented in this encounter Care Teams Wallcovering Hanger Relationship Specialty Start Date End Date Jessica Navarro NP [address] [place] [address] PCP - General 07/26/19 08/22/20 documented as of this encounter
--- OUTSIDE RECORDS SUMMARY | 2024-04-14 18:58 | XMS_ITS | Encounter Summary ---
Author Organization [facility] Medical Group Address [address] [address] Care Team Providers Care Framework Developer Name Role Phone Jessica Navarro NP Primary Care Provider Reason for Visit * Reason Comments Post-op Numbness Encounter Details Date Type Department Care Team (Late st Contact Info) Description 04/23/2020 9:40 AM TURNAROUND ENGINEER Office Visit [facility] [address] [place] [address] Kishan Broussard MD [address] [address] Tendinitis of ankle (Primary Dx) Social History [...] ??C (96.9 ??F) 04/23/2020 1 0:07 AM TURNAROUND ENGINEER Respiratory Rate - - Oxygen Saturation - - Inhaled Oxygen Concentration - - Weight 93.4 kg (205 lb 14.6 oz) 020 10:07 AM TURNAROUND ENGINEER Height 160 cm (5' 2.99 ) 04/23/2020 10: 07 AM TURNAROUND ENGINEER Body Mass Index 36.48 04/23/2020 10:07 AM TURNAROUND ENGINEER documented in this encounter Progress Notes * [...] release. Plan-maintain boot. Return in 7 days. AROUND ENGINEER documented in this encounter Plan of Treatment Not on file documented as of this encounter Visit Diagnoses Diagnosis Tendinitis of ankle- Primary documented in this encounter Care Teams Framework Developer Relationship Specialty Start Date End Date Jessica Navarro NP [address] [place] [address] PCP - General 07/26/19 08/22/20 documented as of this encounter
--- OUTSIDE RECORDS SUMMARY | 2024-04-14 18:58 | XMS_ITS | Encounter Summary ---
Author Organization [facility] Address [address] [address] Care Team Providers Care Machine Inker Name Role Phone Jessica Navarro NP Primary Care Provider Reason for Visit * Reason Comments Post-op Post-op Encounter Details Date Type Department Care Team (Late st Contact Info) Description 04/30/2020 9:40 AM DIRECTOR MICROBIOLOGY Office Visit [facility] [address] [place] [address] Kishan Broussard MD [address] [address] Nontraumatic rupture of tendons of left foot [...] 93 kg (205 lb) 04/30/2020 10:37 AM DIRECTOR MICROBIOLOGY Height 160 cm (5' 3 ) 04/30/2020 10:37 AM DIRECTOR MICROBIOLOGY Body Mass Index 36.31 04/30/2020 10:37 AM DIRECTOR MICROBIOLOGY documented in this encounter Progress Notes * [...] great trigger toe release/flexor hallucis longus repair. Notl-Kdtdd-Juwbo removal. Walking boot p.r.n.. Elevate/ice p.r.n.. Return to this office in 3 weeks. CTOR MICROBIOLOGY documented in this encounter Plan of Treatment Not on file documented as of this encounter Visit Diagnoses Diagnosis Nontraumatic rupture of tendons of left foot and ankle- Primary documented in this encounter Care Teams Machine Inker Relationship Specialty Start Date End Date Jessica Navarro NP [address] [place] [address] PCP - General 07/26/19 08/22/20 documented as of this encounter
--- OUTSIDE RECORDS SUMMARY | 2024-04-14 18:58 | XMS_ITS | Encounter Summary ---
Author Organization [facility] Healthcare Address [address] [place] [address] Care Team Providers Care Employee Benefits Coordinator Name Role Phone Jessica Navarro NP Primary Care Provider [phone] Encounter Details Date Type Department Care Team (Late st Contact Info) Description 03/26/2020 Ancillary Procedure [facility] [address] [place] [phone] Social History Tobacco Use Types Packs/Day [...] OF OUTSIDE FILMS Routine 03/26/2020 12:00 AM NUTRITIONAL CHEMIST documented in this encounter Results * MRI Outside Reference (03/26/2020 12:00 AM NUTRITIONAL CHEMIST) Narrative CONS_SCIMAGE_BJCMG - 11/06/2023 3:24 PM CDT This order has been auto-finalized and does not contain a result. us Provider Transcribed Order IMG MRI PROCEDURES Fi nal Result CONS_SCIMAGE_BJCMG documented in this encounter Visit Diagnoses Not on filedocumented in this encounter Care Teams Employee Benefits Coordinator Relationship Specialty Start Date End Date Navarro, Jessica Pinto NP [address] [place] [address] PCP - General 07/26/19 08/22/20 documented as of this encounter
--- OUTSIDE RECORDS SUMMARY | 2024-04-14 18:58 | XMS_ITS | Encounter Summary ---
Author Organization [facility] Address [address] [address] Care Team Providers Care Vest Maker Name Role Phone Jessica Navarro NP Primary Care Provider [phone] Reason for Referral * Consultation (Routine) - Closed Specialty Diagnoses / Procedures Referred By Jonas reeves Referred To Contact Physical Therapy Diagnoses Nontraumatic rupture of tendons of left foot and ankle Left foot pain Kishan Broussard MD [address] [address] Phone: tel: fax: [address] [phone] Referral ID Status Reason Start Date Expiration Date V isits Requested Visits Authorized [id number] Closed Specialty Services Required 05/24/2020 06/23/2021 9 9 Question Answer PTRFR PT Evaluate and Treat Therapy options discussed with patient? Yes Location provided for therapy services is: Patient requested/Patient preferred Please select the performing region: [facility] [[id number]] # of visits: 9 Comments Evaluate and Treat Post op Left great toe trigger release. Surgery 04/17/20 3x week / 3 weeks. LE VALVE TESTER Reason for Visit * Reason Comments Post-op Encounter Details Date Type Department Care Team (Late st Contact Info) Description 05/24/2020 10:30 AM TRIPLE VALVE TESTER Office Visit [facility] [address] [place] [phone] Kishan Broussard MD [address] [place] [address] Nontraumatic rupture of tendons of left foot [...] 88.5 kg (195 lb) 05/24/2020 10:30 AM TRIPLE VALVE TESTER Height 160 cm (5' 2.99 ) 05/24/2020 10:30 AM TRIPLE VALVE TESTER Body Mass Index 34.55 05/24/2020 10:30 AM TRIPLE VALVE TESTER documented in this encounter Progress Notes * [...] Return to this office in 4 weeks. LE VALVE TESTER documented in this encounter Plan of Treatment [...] limb documented in this encounter Care Teams Vest Maker Relationship Specialty Start Date End Date Jessica Navarro NP [address] [place] [address] PCP - General 07/26/19 08/22/20 documented as of this encounter
--- OUTSIDE RECORDS SUMMARY | 2024-04-14 18:58 | XMS_ITS | Encounter Summary ---
Author Organization [facility] Healthcare Address [address] [place] [address] Care Team Providers Care Air Shovel Operator Name Role Phone Jessica Navarro NP Primary Care Provider Reason for Visit * Reason Comments Abdominal Pain Nausea Vomiting Encounter Details Date Type Department Care Team (Late st Contact Info) Description 07/26/2019 11:33 AM CDT - 07/26/2019 2:01 PM CDT Emergency [facility] Emergency Department [address] [place] [address] Dennis Escalante MD [address] [place] [address] Gastroenteritis (Primary Dx) Discharge Disposition: Discharge to [...] through Care Everywhere. * Gastroenteritis (AfterCare(R) Instructions(ER/ED)) (Marshallese) documented in this encounter Medications at Time [...] PM CDT Narrative 07/26/2019 1:14 PM CDT [facility] ?Imaging Result Name: MARIPOSA SANTOS ?Ordering Phys: DENNIS ESCALANTE Age: 24 ?Date of : 1995 ? Accession Number: [id number] Date of Service: 07/26/2019 ??Gender: F EXAM [...] PM T: ??07/26/2019 1:10 PM Report ID: [id number] Reading Location: ??[id number] Procedure Note Charly Mendez, - 07/26/2019 [facility] Imaging Result Name: MARIPOSA SANTOS Ordering Phys: DENNIS ESCALANTE Age: 24 Date of : 1995 Accession Number: [id number] Date of Service: 07/26/2019 Gender: F EXAM [...] Charly Mendez D.O. PS: PS Report ID: [id number] Reading Location: [place] [address] Dennis Escalante MD IMG US PROCEDURES Final Resul t * hCG, urine, qualitative (07/26/2019 11:49 AM CDT) HCG, ur Negative Negative [facility] ([place]) Urine 07/26/2019 11:4 9 AM CDT 07/26/2019 11:53 AM CDT Dennis Escalante MD LAB URINE ORDERABLES Final Re sult [facility] ([place]) 1 [facility] Department [place] [address] * Urinalysis reflex to microscopic and culture Urine (07/26/2019 11:49 AM CDT) Color, ur Yellow Yellow [facility] ([place]) Clarity, ur Clear Clear [facility] A ([place]) Specific gravity, ur 1.010 1.010 - 1.025 [facility] ([place]) pH, urine 7.0 [facility] ([place]) Protein, ur ql Negative Negative [facility] ([place]) Glucose, ur ql Negative Negative [facility] ([place]) Ketones, ur Negative Negative [facility] ([place]) Bilirubin, ur Negative Negative [facility] ([place]) Blood, ur Negative Negative [facility] ([place]) Urobilinogen, ur <2.0 <2.0 mg/dL [facility] ([place]) Nitrite, ur Negative Negative [facility] ([place]) Leukocyte esterase, ur Negative Negative [facility] ([place]) UA reflex comment Reflex conditions for microscopic UA and culture not met. [facility] ([place]) Urine 07/26/2019 11:4 9 AM CDT [...] tendency for uric acid stone formation. Source: [facility] [employer]. Last revised 05-07-2017 Dennis Escalante MD LAB MICROBIOLOGY - GENERAL OR DERABLES Final Result [facility] ([place]) 1 [facility] Department [place] [address] * eGFR (07/26/2019 11:42 AM CDT) eGFR 120 mL/min/1.7 3 m2 [facility] ([place]) Comment: Interpretive Data Reference Interval Normal ?>/= 90 mL/min/1.73m2 Mildly decreased* ? 60 - 89 mL/min/1.73m2 Mildly to moderately decreased ?45 - 59 mL/min/1.73m2 Moderately to severely decreased ??30 - 44 mL/min/1.73m2 Severely decreased ?15 - 29 mL/min/1.73m2 Kidney Failure ?< 15 ??mL/min/1.73m2 *Relative to young adult level If -Italian multiply value by 1.16. Estimated glomerular filtration [...] LAB BLOOD ORDERABLES Final Re sult [facility] ([place]) 1 [facility] Department of Laboratories [place], [place] [id number] * (ABNORMAL) Differential, auto (07/26/2019 11:42 AM [...] Final Re sult [facility] ([place]) 1 [facility] Department [place] [address] * (ABNORMAL) Lipase (07/26/2019 11:42 AM CDT) Lipase 103(H) 10 - 99 Units/L [facility] ([place]) Blood specimen (specimen) 07/26/2019 11:42 AM CDT 07/26/2019 11:45 AM CDT us Dennis Escalante MD LAB BLOOD ORDERABLES Final Re sult [facility] ([place]) 1 [facility] Department [place] [address] * (ABNORMAL) Comprehensive metabolic panel (07/26/2019 11:42 [...] ORDERABLES Final Re sult Performing Organization Address [facility] Co de Phone Number [facility] ([place]) 1 [facility] [place] [address] * (ABNORMAL) CBC with auto differential (07/26/2019 [...] 34.6 32.3 - 35.7 g/dL [facility] ([place]) RDW CV 11.3 11.1 - 14.9 % [facility] ([place]) RDW SD 38.2 35.7 - 48.1 fL [facility] ([place]) NRBC abs 0.00 0.00 - 0.01 K/cumm [facility] ([place]) Blood specimen (specimen) 07/26/2019 11:42 AM CDT 07/26/2019 11:45 AM CDT Dennis Escalante MD LAB BLOOD ORDERABLES Final Re sult Performing Organization Address [facility]/ZIP Co de Phone Number [facility] ([place]) 1 [facility] [employer] [place] [address] documented in this encounter Visit Diagnoses Diagnosis Gastroenteritis- Primary Other and unspecified noninfectious gastroenteritis and colitis documented in this encounter Care Teams Air Shovel Operator Relationship Specialty Start Date End Date Melanie, Jessica Pinto NP [address] [place] [address] PCP - General 07/26/19 08/22/20 documented as of this encounter
--- OUTSIDE RECORDS SUMMARY | 2024-04-14 18:58 | XMS_ITS | Encounter Summary ---
Author Organization [facility] Healthcare Address [address] [place] [address] Care Team Providers Care Mining Technician Name Role Phone Jessica Navarro NP Primary Care Provider Reason for Visit * Reason Comments PT Treatment Encounter Details Date Type Department Care Team (Late st Contact Info) Description 06/13/2020 8:30 AM HEALTH RESEARCHER Therapy [facility] Physical Therapy [address] [place] [address] Jaye Zayas, PT Nontraumatic rupture of tendons [...] 830 End Time:915 Jaye Zayas PT, DPT TH RESEARCHER documented in this encounter Plan of Treatment Not on file documented as of this encounter Visit Diagnoses Diagnosis Nontraumatic rupture of tendons of left foot and ankle- Primary documented in this encounter Care Teams Mining Technician Relationship Specialty Start Date End Date Melanie, Jessica Pinto NP [address] [place] [address] PCP - General 07/26/19 08/22/20 documented as of this encounter
--- OUTSIDE RECORDS SUMMARY | 2024-04-14 18:58 | XMS_ITS | Encounter Summary ---
Author Organization [facility] Healthcare Address [address] [place] [address] Care Team Providers Care Medical Recruiter Name Role Phone Jessica Navarro NP Primary Care Provider [phone] Reason for Visit * Reason Comments PT Treatment Encounter Details Date Type Department Care Team (Late st Contact Info) Description 01/25/2020 10:45 AM CDT Therapy [facility] Physical Therapy [address] [place] [address] Christi Chanel, GEAR SHAPER SET UP OPERATOR Other instability, right ankle (Primary Dx) Social [...] this encounter Progress Notes * Christi Chanel, GEAR SHAPER SET UP OPERATOR - 01/25/2020 10:45 AM CDT PT Daily [...] Primary documented in this encounter Care Teams Medical Recruiter Relationship Specialty Start Date End Date Jessica Navarro NP [address] [place] [address] PCP - General 07/26/19 08/22/20 documented as of this encounter
--- OUTSIDE RECORDS SUMMARY | 2024-04-14 18:58 | XMS_ITS | Encounter Summary ---
Author Organization [facility] Healthcare Address [address] [place] [address] Care Team Providers Care Branding Machine Tender Name Role Phone Jessica Navarro NP Primary Care Provider [phone] Reason for Visit * Reason Comments PT Treatment Encounter Details Date Type Department Care Team (Late st Contact Info) Description 06/22/2020 10:45 AM INDUSTRIAL MAINTENANCE ELECTRICIAN Therapy [facility] Physical Therapy [address] [place] [address] Christi Chanel, LABEL PASTER Nontraumatic rupture of tendons of left foot [...] this encounter Progress Notes * Christi Chanel, LABEL PASTER - 06/22/2020 10:45 AM CST PT Daily [...] Time: 5 End Time:1124 Christi Chanel, TRISTIN STRIAL MAINTENANCE ELECTRICIAN documented in this encounter Plan of Treatment Not on file documented as of this encounter Visit Diagnoses Diagnosis Nontraumatic rupture of tendons of left foot and ankle- Primary documented in this encounter Care Teams Branding Machine Tender Relationship Specialty Start Date End Date Jessica Navarro NP [address] [place] [address] PCP - General 07/26/19 08/22/20 documented as of this encounter
--- OUTSIDE RECORDS SUMMARY | 2024-04-14 18:58 | XMS_ITS | Encounter Summary ---
Author Organization [facility] Address [address] [place] [address] Phone Care Team Providers Care Field Engineer Name Role Phone Navarro, Jessica Pinto NP Primary Care Provider Encounter Details Date Type Department Care Team (Late st Contact Info) Description 04/03/2020 Orders Only [facility] [address] [place] [address] Scanning, Provider Social History Tobacco [...] Comments SCAN - RADIOLOGY/IMAGING 04/03/2020 10:55 AM HOME HEALTH ADMINISTRATOR documented in this encounter Results * SCAN - RADIOLOGY/IMAGING (04/03/2020 10:55 AM HOME HEALTH ADMINISTRATOR) Anatomical Region Laterality Modality Other us Provider Scanning Final Result documented in this encounter Visit Diagnoses Not on filedocumented in this encounter Care Teams Field Engineer Relationship Specialty Start Date End Date Navarro, Jessica Pinto NP [address] [place] [address] PCP - General 07/26/19 08/22/20 documented as of this encounter
--- OUTSIDE RECORDS SUMMARY | 2024-04-14 18:58 | XMS_ITS | Encounter Summary ---
Author Organization [facility] Healthcare Address [address] [place] [address] Care Team Providers Care Senior Manufacturing Technician Name Role Phone Jessica Navarro NP Primary Care Provider Encounter Details Date Type Department Care Team (Late st Contact Info) Description 04/17/2020 8:00 AM SENIOR DATABASE ADMINISTRATOR - 04/17/2020 9:00 AM SENIOR DATABASE ADMINISTRATOR Surgery [facility] Operating Room [address] [place] [address] Kishan Broussard MD [address] [place] [id number] RELEASE TRIGGER TOE-LEFT Surgery Details Date/Time Status Location OR Service Patient Class Case Class Case Type Trauma Case? 04/17/2020 8:00 AM Posted [facility] OPERATING ROOM OR Orthopaedics [...] Comments Blood Pressure 142/102 04/17/2020 6:45 AM SENIOR DATABASE ADMINISTRATOR Pulse 81 04/17/2020 6:45 AM SENIOR DATABASE ADMINISTRATOR Temperature 36.5 ??C (97.7 ??F) 04/17/2020 6:45 AM CS T Respiratory Rate 18 04/17/2020 6:45 AM SENIOR DATABASE ADMINISTRATOR Oxygen Saturation 98% 04/17/2020 6:45 AM SENIOR DATABASE ADMINISTRATOR Inhaled Oxygen Concentration - - Weight 93.4 kg (205 lb 14.6 oz) 04/17/2020 6:45 AM SENIOR DATABASE ADMINISTRATOR Height 160 cm (5' 3 ) 04/17/2020 6:45 AM SENIOR DATABASE ADMINISTRATOR Body Mass Index 36.48 04/17/2020 6:45 AM SENIOR DATABASE ADMINISTRATOR documented in this encounter Discharge Instructions * Discharge Instructions* Brigida Grier RN - 04/17/2020 10:11 AM [address] DAT[address]ASE ADMINIST[address] Dr. Broussard Discharge Instructions 1. Elevate operative [...] plastic bag b) After 3-4 days, begin hdsvr-sx-idjesb exercises. 7. Exercises: a) Move fingers, elbow, toes and ankle frequently as appropriate. b) Flex and extend knee twice daily. c) Straight leg raises as instructed. d) Calf pumping as instructed. 8. Call if increased pain, numbness or tingling in operative extremity, fever over 101?? F, chills or any other questions or problems. 9. Return to office: _x_ as planned __ call [phone] to make appointment in 10 days 10. Resume regular diet Dr. Kishan Broussard [facility] [address] [address] OR DATABASE ADMINISTRATOR * Attachments The following attachments cannot be sent through Care Everywhere. * General Anesthesia (Discharge Care) (American) * How to Stop Smoking (Discharge Care) (American) * Hydrocodone/Acetaminophen (By mouth) (American) documented in this encounter Medications at Time [...] acceptable risk for :Procedure(s): RELEASE TRIGGER TOE-LEFT OR DATABASE ADMINISTRATOR Source Note - Kishan Broussard MD - 04/12/2020 12:00 AM SENIOR DATABASE ADMINISTRATOR Ms. Santos will be at [facility] for day surgery 04/17/2020 to undergo [...] with the proposed plan. Plan Day surgery, [facility] 04/17/2020. On admission, please obtain consent for left greattrigger toe release. Job ID/VF Job ID: [id number] OR DATABASE ADMINISTRATOR * Kishan Broussard MD - 04/12/2020 12:00 AM CST Ms. Santos will be at [facility] for day surgery 04/17/2020 to undergo [...] with the proposed plan. Plan Day surgery, [facility] 04/17/2020. On admission, please obtain consent for left greattrigger toe release. Job ID/VF Job ID: [id number] OR DATABASE ADMINISTRATOR documented in this encounter Miscellaneous Notes * Perioperative Nursing Note - Inga Hugo RN - 04/17/2020 10:05 AM CST 0945 patient awake, c/o pain to left foot. She is teary and grimacing. I called Dr Corral regarding possible nerve block. 0950 timeout performed, for nerve block by Dr Corral OR DATABASE ADMINISTRATOR * Perioperative Nursing Note - Berna Forrest RN - 04/17/2020 9:13 AM CST Patient moved approximately 4 inches down OR table during procedure per surgeon request OR DATABASE ADMINISTRATOR * Brief Op Note - Kishan Broussard MD - 04/17/2020 8:12 AM CST Operative Progress Note Surgical Team: Surgeon(s) and Role: * Kishan Broussard MD - Primary Anesthesiologist: Jose Corral MD PhD ADVANCED QUALITY ENGINEER: Liset Byers CRNA Bank Note Designer: Berna Forrest RN Scrub: Vicky Garcia LPN LIFT SUPERVISOR: Rochelle Nixon RN DATE OF SURGERY : [...] Broussard MD Date: 04/17/2020 Time: 9:09 AM OR DATABASE ADMINISTRATOR * Op Note - Kishan Broussard MD - 04/17/2020 12:00 AM CST Procedure Right great trigger toe release. Operative Indications Ms. 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 Improvement Coordinator None. Job ID/VF Job ID: [id number] OR DATABASE ADMINISTRATOR * Pre-Procedure Instructions - Jenyn Allison RN - 04/13/2020 12:15 PM SENIOR DATABASE ADMINISTRATOR We are pleased that you and your doctor have chosen [facility] for your surgery. We hope that the [...] Medication Instructions ?? Use no make-up, nail greenlandic, lotions, oils or powders on your skin. [...] posted at the top of the page. OR DATABASE ADMINISTRATOR * Perioperative Nursing Note - Jenny Allison RN - 04/13/2020 12:15 PM SENIOR DATABASE ADMINISTRATOR covid screening 04/14/2020 OR DATABASE ADMINISTRATOR documented in this encounter Plan of Treatment Not on file documented as of this encounter Procedures Procedure Name Priority Date/Time Associated Diagnosis Comments RELEASE TRIGGER FINGER 04/17/2020 7:37 AM SENIOR DATABASE ADMINISTRATOR Acquired deformity of left toe POCT HCG, URINE Routine 04/17/2020 6:58 AM SENIOR DATABASE ADMINISTRATOR documented in this encounter Results * POCT hCG, urine (04/17/2020 6:58 AM SENIOR DATABASE ADMINISTRATOR) HCG, ur, POC Negative Lot Number [id number] QC Backgroud Clear Acceptable QC Control Line Acceptable Urine 04/17/2020 6:58 AM SENIOR DATABASE ADMINISTRATOR us Paul Maya MD POINT OF CARE [...] AnalgesiaIndications:Pre-Emptiv e Analgesia Given 04/17/2020 7:09 AM SENIOR DATABASE ADMINISTRATOR 1,000 mg celecoxib (CeleBREX) capsule 200 mg 200 mg, oral, Once, On Thu04/17/20 at 0745, For 1 dose, Pre-Op, Indications: Pre-Emptive AnalgesiaIndications:Pre-Emptiv e Analgesia Given 04/17/2020 7:09 AM SENIOR DATABASE ADMINISTRATOR 200 mg HYDROcodone-acetaminophen (NORCO) 5-325 mg per tablet 1 tablet 1 tablet, oral, Once as needed, 1st line for pain, Starting on Thu04/17/20 at 1014, For 1 dose, Phase I & Post-op Floor, Indications: PainIndications:Pain Given 04/17/2020 11:10 AM SENIOR DATABASE ADMINISTRATOR 1 tablet Lactated Ringer's (LR) infusion 30 mL/hr, intravenous, Continuous, Starting on e 04/17/20 at 0715, Pre-Op New Bag 04/17/2020 9:01 AM SENIOR DATABASE ADMINISTRATOR Rate/Dose Verify 04/17/2020 7:47 AM SENIOR DATABASE ADMINISTRATOR New Bag 04/17/2020 7:04 AM SENIOR DATABASE ADMINISTRATOR 30 mL/hr 30 mL/hr lidocaine PF (XYLOCAINE) 10 mg/mL (1 %) preservative free injection As needed, Starting on Thu04/17/20 at 0919, Intra-Op Given 04/17/2020 9:19 AM SENIOR DATABASE ADMINISTRATOR 5 mL Surgical Site sodium chloride 0.9 % irrigation As needed, Starting on Thu04/17/20 at 0814, Intra-Op Given 04/17/2020 8:14 AM SENIOR DATABASE ADMINISTRATOR 1,000 mL Surgical Site documented in this [...] Recently Administered Medications Times are shown in SENIOR DATABASE ADMINISTRATOR. Scheduled Medication Order 04/15/2020 04/16/2020 04/17/2020 acetaminophen [...] 03/28 documented in this encounter Care Teams Senior Manufacturing Technician Relationship Specialty Start Date End Date Jessica Navarro NP [address] [place] [address] PCP - General 07/26/19 08/22/20 documented as of this encounter
--- OUTSIDE RECORDS SUMMARY | 2024-04-14 18:58 | XMS_ITS | Encounter Summary ---
Author Organization [facility] Medical Group Address [address] [address] Care Team Providers Care Cigar Packer And Grader Name Role Phone Jessica Navarro NP Primary Care Provider Reason for Visit * Reason Comments Post-op Follow-up Encounter Details Date Type Department Care Team (Late st Contact Info) Description 06/21/2020 9:10 AM HUMAN SERVICE COORDINATOR Office Visit [facility] [address] [place] [address] Kishan Broussard MD [address] [address] Nontraumatic rupture of tendons of left foot [...] 88.5 kg (195 lb) 06/21/2020 9:07 AM HUMAN SERVICE COORDINATOR Height 160 cm (5' 3 ) 06/21/2020 9:07 AM HUMAN SERVICE COORDINATOR Body Mass Index 34.54 06/21/2020 9:07 AM HUMAN SERVICE COORDINATOR documented in this encounter Progress Notes [...] Return to this office in 4 weeks. N SERVICE COORDINATOR documented in this encounter Plan of Treatment Not on file documented as of this encounter Visit Diagnoses Diagnosis Nontraumatic rupture of tendons of left foot and ankle- Primary documented in this encounter Care Teams Cigar Packer And Grader Relationship Specialty Start Date End Date Jessica Navarro NP [address] [place] [address] PCP - General 07/26/19 08/22/20 documented as of this encounter
--- OUTSIDE RECORDS SUMMARY | 2024-04-14 18:58 | XMS_ITS | Encounter Summary ---
Author Organization [facility] Healthcare Address [address] [place] [address] Care Team Providers Care Motor Express Clerk Name Role Phone Jessica Navarro NP Primary Care Provider Reason for Visit * Reason Comments PT Treatment Encounter Details Date Type Department Care Team (Late st Contact Info) Description 02/13/2020 1:00 PM CDT Therapy [facility] [address] [place] [address] Seema Oakley, PT Other instability, right ankle [...] ankle documented in this encounter Care Teams Motor Express Clerk Relationship Specialty Start Date End Date Navarro, Jessica Pinto NP [address] [place] [address] PCP - General 07/26/19 08/22/20 documented as of this encounter
--- OUTSIDE RECORDS SUMMARY | 2024-04-14 18:58 | XMS_ITS | Encounter Summary ---
Author Organization [facility] Healthcare Address [address] [place] [address] Care Team Providers Care Front End Drupal Developer Name Role Phone Jessica Avalos NP Primary Care Provider [phone] Reason for Referral * Diagnostic Imaging (Routine) - Closed Specialty Diagnoses / Procedures Referred By Contac t Referred To Contact Diagnoses Other instability, left ankle Procedures XR Ankle Left 3 or More Views Jessica Avalos NP [address] [place] [address] Phone: tel: fax: [address] [phone] Referral ID Status Reason Start Date Expiration Date Visits Re quested Visits Authorized [id number] Closed 12/27/2019 01/25/2021 1 1 * Diagnostic Imaging (Routine) - Closed Specialty Diagnoses / Procedures Referred By Contac t Referred To Contact Diagnoses Pain in right ankle and joints of right foot Procedures XR Ankle Right 3 or More Views Jessica Avalos NP [address] [place] [address] Phone: tel: fax: [address] [phone] Referral ID Status Reason Start Date Expiration Date Visits Re quested Visits Authorized [id number] Closed 11/25/2019 12/24/2020 1 1 Reason for Visit * Diagnostic Imaging (Routine) - Closed Specialty Diagnoses / Procedures Referred By Jonas t Referred To Contact Diagnoses Other instability, left ankle Procedures XR Ankle Left 3 or More Views Jessica Avalos NP [address] [place] [address] Phone: tel: fax: [address] [phone] Referral ID Status Reason Start Date Expiration Date Visits Re quested Visits Authorized [id number] Closed 12/27/2019 01/25/2021 1 1 Encounter Details Date Type Department Care Team (Latest Contact Info) Description 12/28/2019 2:19 PM CDT - 12/28/2019 11:59 PM CDT Hospital Encounter [facility] [address] [place] [address] Nery Ireland MD [address] [place] [address] Jessica Avalos NP [address] [place] [address] Pain in right ankle and [...] 3 OR MORE VIEWS ORDERING HEALTHCARE PROVIDER: JSESICA AVALOS HISTORY: Bilateral foot pain radiating into [...] by: Sagar Key M.D. us Jessica Avalos INVENTORY CONTROL PLANNER IMG XR PROCEDURES Final Resu lt * [...] ankle documented in this encounter Care Teams Front End Drupal Developer Relationship Specialty Start Date End Date Jessica Avalos NP [address] [place] [address] PCP - General 07/26/19 08/22/20 documented as of this encounter
--- OUTSIDE RECORDS SUMMARY | 2024-04-14 18:58 | XMS_ITS | Encounter Summary ---
Author Organization [facility] Healthcare Address [address] [place] [address] Care Team Providers Care Computer Forensics Investigator Name Role Phone Jessica Navarro NP Primary Care Provider [phone] Reason for Visit * Reason Comments PT Treatment Encounter Details Date Type Department Care Team (Late st Contact Info) Description 01/30/2020 2:30 PM CDT Therapy [facility] [address] [place] [address] Seema Oakley, PT Other instability, right ankle [...] ankle documented in this encounter Care Teams Computer Forensics Investigator Relationship Specialty Start Date End Date Jessica Navarro NP [address] [place] [address] PCP - General 07/26/19 08/22/20 documented as of this encounter
--- OUTSIDE RECORDS SUMMARY | 2024-04-14 18:58 | XMS_ITS | Encounter Summary ---
Author Organization [facility] Healthcare Address [address] [place] [address] Care Team Providers Care Wig Comber Name Role Phone Jessica Navarro NP Primary Care Provider [phone] Encounter Details Date Type Department Care Team (Late st Contact Info) Description 04/17/2020 6:26 AM BIOMEDICAL TECHNICIAN - 04/17/2020 12:05 PM BIOMEDICAL TECHNICIAN Hospital Encounter [facility] Operating Room [address] [place] [address] Kishan Broussard MD [address] [place] [address] Discharge Disposition: Discharge to home or self [...] Comments Blood Pressure 148/66 04/17/2020 11:56 AM BIOMEDICAL TECHNICIAN Pulse 89 04/17/2020 11:56 AM BIOMEDICAL TECHNICIAN Temperature 36.5 ??C (97.7 ??F) 04/17/2020 1 1:56 AM BIOMEDICAL TECHNICIAN Respiratory Rate 18 04/17/2020 11:5 6 AM BIOMEDICAL TECHNICIAN Oxygen Saturation 98% 04/17/2020 11: 56 AM BIOMEDICAL TECHNICIAN Inhaled Oxygen Concentration - - Weight 93.4 kg (205 lb 14.6 oz) 04/17/2020 6:45 AM BIOMEDICAL TECHNICIAN Height 160 cm (5' 3 ) 04/17/2020 6:45 AM BIOMEDICAL TECHNICIAN Body Mass Index 36.48 04/17/2020 6:45 AM BIOMEDICAL TECHNICIAN documented in this encounter Discharge Diagnoses Diagnosis [...] uncomplicated - NICOTINE DEPENDENCE, CIGARETTES, UNCOMPLICATED Other assisted (current) drug therapy - OTHER CHECK EMBOSSER (CURRENT) DRUG THERAPY documented in this encounter Discharge Instructions * Discharge Instructions* Brigida Grier RN - 04/17/2020 10:[address] Broussard Discharge Instructions 1. Elevate [...] plastic bag b) After 3-4 days, begin [id number] exercises. 7. Exercises: a) Move fingers, elbow, toes and ankle frequently as appropriate. b) Flex and extend knee twice daily. c) Straight leg raises as instructed. d) Calf pumping as instructed. 8. Call if increased pain, numbness or tingling in operative extremity, fever over 101?? F, chills or any other questions or problems. 9. Return to office: _x_ as planned __ call [phone] to make appointment in 10 days 10. Resume regular diet Dr. Kishan Broussard [facility] [address] [id number] EDICAL TECHNICIAN * Attachments The following attachments cannot be sent through Care Everywhere. * General Anesthesia (Discharge Care) (Tongan) * How to Stop Smoking (Discharge Care) (Tongan) * Hydrocodone/Acetaminophen (By mouth) (Tongan) documented in this encounter Medications at Time [...] acceptable risk for :Procedure(s): RELEASE TRIGGER TOE-LEFT EDICAL TECHNICIAN Source Note - Kishan Broussard MD - 04/12/2020 12:00 AM BIOMEDICAL TECHNICIAN Ms. Santos will be at [facility] for day surgery 04/17/2020 to undergo left [...] with the proposed plan. Plan Day surgery, [facility] 04/17/2020. On admission, please obtain consent for left greattrigger toe release. Job ID/VF Job ID: [id number] EDICAL TECHNICIAN * Kishan Broussard MD - 04/12/2020 12:00 AM CST Ms. Santos will be at [facility] for day surgery 04/17/2020 to undergo left [...] with the proposed plan. Plan Day surgery, [facility] 04/17/2020. On admission, please obtain consent for left greattrigger toe release. Job ID/VF Job ID: [id number] EDICAL TECHNICIAN documented in this encounter Miscellaneous Notes * Perioperative Nursing Note - Inga Hugo RN - 04/17/2020 10:05 AM CST 0945 patient awake, c/o pain to left foot. She is teary and grimacing. I called Dr Corral regarding possible nerve block. 0950 timeout performed, for nerve block by Dr Corral EDICAL TECHNICIAN * Perioperative Nursing Note - Berna Forrest RN - 04/17/2020 9:13 AM CST Patient moved approximately 4 inches down OR table during procedure per surgeon request EDICAL TECHNICIAN * Brief Op Note - Kishan Broussard MD - 04/17/2020 8:12 AM CST Operative Progress Note Surgical Team: Surgeon(s) and Role: * Kishan Broussard MD - Primary Anesthesiologist: Jose Corral MD PhD SHOT LIGHTER: Liset Byers CRNA Adding Machine Servicer: Berna Forrest RN Scrub: Vicky Garcia LPN SOLDERER ELECTRONIC: Rochelle Nixon RN DATE OF SURGERY : [...] Broussard MD Date: 04/17/2020 Time: 9:09 AM EDICAL TECHNICIAN * Op Note - Kishan Broussard MD - 04/17/2020 12:00 AM CST Procedure Right great trigger toe release. Operative Indications Ms. 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 Typesetter Perforator Operator None. Job ID/VF Job ID: [id number] EDICAL TECHNICIAN * Pre-Procedure Instructions - Jenny Allison RN - 04/13/2020 12:15 PM BIOMEDICAL TECHNICIAN We are pleased that you and your doctor have chosen [facility] for your surgery. We hope that [...] Medication Instructions ?? Use no make-up, nail sami, lotions, oils or powders on your skin. [...] posted at the top of the page. EDICAL TECHNICIAN * Perioperative Nursing Note - Jenny Allison RN - 04/13/2020 12:15 PM BIOMEDICAL TECHNICIAN covid screening 04/14/2020 EDICAL TECHNICIAN documented in this encounter Plan of Treatment Not on file documented as of this encounter Procedures Procedure Name Priority Date/Time Associated Diagnosis Comments RELEASE TRIGGER FINGER 04/17/2020 7:37 AM BIOMEDICAL TECHNICIAN Acquired deformity of left toe POCT HCG, URINE Routine 04/17/2020 6:58 AM BIOMEDICAL TECHNICIAN documented in this encounter Results * POCT hCG, urine (04/17/2020 6:58 AM BIOMEDICAL TECHNICIAN) HCG, ur, POC Negative Lot Number [id number] QC Backgroud Clear Acceptable QC Control Line Acceptable Urine 04/17/2020 6:58 AM BIOMEDICAL TECHNICIAN us Paul Maya MD POINT OF [...] AnalgesiaIndications:Pre-Emptiv e Analgesia Given 04/17/2020 7:09 AM BIOMEDICAL TECHNICIAN 1,000 mg celecoxib (CeleBREX) capsule 200 mg 200 mg, oral, Once, On Thu04/17/20 at 0745, For 1 dose, Pre-Op, Indications: Pre-Emptive AnalgesiaIndications:Pre-Emptiv e Analgesia Given 04/17/2020 7:09 AM BIOMEDICAL TECHNICIAN 200 mg HYDROcodone-acetaminophen (NORCO) 5-325 mg per tablet 1 tablet 1 tablet, oral, Once as needed, 1st line for pain, Starting on Thu04/17/20 at 1014, For 1 dose, Phase I & Post-op Floor, Indications: PainIndications:Pain Given 04/17/2020 11:10 AM BIOMEDICAL TECHNICIAN 1 tablet Lactated Ringer's (LR) infusion 30 mL/hr, intravenous, Continuous, Starting on Thu04/17/20 at 0715, Pre-Op New Bag 04/17/2020 9:01 AM BIOMEDICAL TECHNICIAN Rate/Dose Verify 04/17/2020 7:47 AM BIOMEDICAL TECHNICIAN New Bag 04/17/2020 7:04 AM BIOMEDICAL TECHNICIAN 30 mL/hr 30 mL/hr documented in this [...] Recently Administered Medications Times are shown in BIOMEDICAL TECHNICIAN. Scheduled Medication Order 04/15/2020 04/16/2020 04/17/2020 [...] 03/28 documented in this encounter Care Teams Wig Comber Relationship Specialty Start Date End Date Jessica Navarro NP [address] [place] [address] PCP - General 07/26/19 08/22/20 documented as of this encounter
--- OUTSIDE RECORDS SUMMARY | 2024-04-14 18:58 | XMS_ITS | Encounter Summary ---
Author Organization [facility] Address [address] [address] Care Team Providers Care Pouring Crane Operator Name Role Phone Jessica Navarro NP Primary Care Provider Reason for Visit * Reason Comments Pain Pain Encounter Details Date Type Department Care Team (Late st Contact Info) Description 03/08/2020 11:10 AM SUPERVISOR TRANSCRIBING OPERATORS Office Visit [facility] [address] [place] [address] Kishan Broussard MD [address] [address] Tendinitis of ankle (Primary Dx) Social History [...] - - Temperature 36 ??C (96.8 ??F) 03/08/2020 12:52 PM SUPERVISOR TRANSCRIBING OPERATORS Respiratory Rate - - Oxygen Saturation - - Inhaled Oxygen Concentration - - Weight 90.3 kg (199 lb) 03/08/2020 12:52 PM SUPERVISOR TRANSCRIBING OPERATORS Height 160 cm (5' 3 ) 03/08/2020 12:52 PM SUPERVISOR TRANSCRIBING OPERATORS Body Mass Index 35.25 03/08/2020 12:52 PM SUPERVISOR TRANSCRIBING OPERATORS documented in this encounter Ordered Prescriptions Prescription Sig Dispense Quantity Refills Last Filled Start Date End Date methylPREDNISolone (Medrol, Ron,) 4 mg Dosepack Take as directed on package 1 packet 03/08/2020 0 documented in this encounter Progress Notes * Kishan Broussard MD - 03/08/2020 11:10 AM CST This 24-year-old female is seen today for evaluation of bilateral ankle pain. She denies trauma butstates that she attended the ER on 12/28/2019 and had x- rays which were within normal limits. She has been unresponsive to ibuprofen 800 mg t.i.d.. Her pain is primarily in the posterior aspects of both the medial and lateral malleoli. The patient also has triggering with locked down of her left great toe. Examination confirms healthy-appearing 24-year-old with positive findings in the ankles with there is tenderness over the peroneus longus as well as brevis tendon sheaths and to lesser degree adjacent to the posterior medial malleolus. There is no edema. There is no deformity. The left great toe inflexion locks down and requires manual extension. Skin is intact. Neurovascular status is preserved. X-rays done in the ER of both ankles are within normal limits. Diagnosis-bilateral ankle tendinitis with left great trigger toe. Plan-Medrol Dosepak. Return in 10-14 days. RVISOR TRANSCRIBING OPERATORS documented in this encounter Plan of Treatment Not on file documented as of this encounter Visit Diagnoses Diagnosis Tendinitis of ankle- Primary documented in this encounter Care Teams Pouring Crane Operator Relationship Specialty Start Date End Date Jessica Navarro NP [address] [place] [address] PCP - General 07/26/19 08/22/20 documented as of this encounter
--- OUTSIDE RECORDS SUMMARY | 2024-04-14 18:58 | XMS_ITS | Encounter Summary ---
Author Organization [facility] Healthcare Address [address] [place] [address] Care Team Providers Care Right Of Way Agent Name Role Phone Jessica Navarro NP Primary Care Provider Encounter Details Date Type Department Care Team (Latest Contact Info) Description 05/14/2020 2:49 PM PRODUCT DEMONSTRATOR - 05/14/2020 2:57 PM PRODUCT DEMONSTRATOR Hospital Encounter [facility] Discharge Disposition: [...] on filedocumented in this encounter Care Teams Right Of Way Agent Relationship Specialty Start Date End Date Melanie, Jessica Pinto NP [address] [place] [address] PCP - General 07/26/19 08/22/20 documented as of this encounter
--- OUTSIDE RECORDS SUMMARY | 2024-04-14 18:58 | XMS_ITS | Encounter Summary ---
Author Organization [facility] Healthcare Address [address] [place] [address] Care Team Providers Care Hub Borer Name Role Phone Jessica Navarro NP Primary Care Provider [phone] Reason for Visit * Reason Comments PT Initial Eval * Consultation (Routine) - Closed Specialty Diagnoses / Procedures Referred By Jonas reeves Referred To Contact Physical Therapy Diagnoses Other instability, right ankle Jessica Navarro NP [address] [place] [address] Phone: tel: fax: [address] [phone] Referral ID Status Reason Start Date Expiration Date V isits Requested Visits Authorized [id number] Closed Specialty Services Required 01/06/2020 02/04/2021 24 24 Encounter Details Date Type Department Care Team (Late st Contact Info) Description 01/17/2020 11:00 AM CDT Therapy [facility] [address] [place] [address] Seema Oakley, PT Other instability, right ankle [...] Evaluation *PLEASE SIGN AND FAX BACK TO [phone]* Lilli Santos 1995 24 y.o. female Jessica Navarro, ANA LILIA [address] [place] [address] ICD-9-CM ICD-10-CM 1. 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
--- OUTSIDE RECORDS SUMMARY | 2024-04-14 18:58 | XMS_ITS | Encounter Summary ---
Author Organization [facility] Healthcare Address [address] [place] [address] Care Team Providers Care Logistics Clerk Name Role Phone Jessica Navarro NP Primary Care Provider Reason for Visit * Reason Comments PT Treatment Encounter Details Date Type Department Care Team (Late st Contact Info) Description 02/06/2020 2:45 PM CDT Therapy [facility] Physical Therapy [address] [place] [address] Jaye Zayas, PT Other instability, right ankle [...] Primary documented in this encounter Care Teams Logistics Clerk Relationship Specialty Start Date End Date Jessica Navarro NP [address] [place] [address] PCP - General 07/26/19 08/22/20 documented as of this encounter
--- OUTSIDE RECORDS SUMMARY | 2024-04-14 18:58 | XMS_ITS | Encounter Summary ---
Author Organization [facility] Healthcare Address [address] [place] [address] Care Team Providers Care Envelope Sealer Name Role Phone Jessica Navarro NP Primary Care Provider Reason for Visit * Reason Comments PT Treatment Encounter Details Date Type Department Care Team (Late st Contact Info) Description 06/21/2020 1:45 PM MOLD SHIFTER Therapy [facility] Physical Therapy [address] [place] [address] Christi Chanel, CAPABILITY LEAD Nontraumatic rupture of tendons of left foot [...] this encounter Progress Notes * Christi Chanel, CAPABILITY LEAD - 06/21/2020 1:45 PM CST PT Daily [...] Start Time: 1345 End Time:1430 Christi Chanel, CAPABILITY LEAD SHIFTER documented in this encounter Plan of Treatment Not on file documented as of this encounter Visit Diagnoses Diagnosis Nontraumatic rupture of tendons of left foot and ankle- Primary documented in this encounter Care Teams Envelope Sealer Relationship Specialty Start Date End Date Melanie, Jessica Pinto NP [address] [place] [address] PCP - General 07/26/19 08/22/20 documented as of this encounter
--- OUTSIDE RECORDS SUMMARY | 2024-04-14 18:58 | XMS_ITS | Encounter Summary ---
Author Organization [facility] Healthcare Address [address] [place] [address] Care Team Providers Care Paint Prep Technician Name Role Phone Jessica Avalos NP Primary Care Provider [phone] Reason for Referral * Diagnostic Imaging (Routine) - Closed Specialty Diagnoses / Procedures Referred By Jonas reeves Referred To Contact Diagnoses Localized swelling, mass and lump, neck Procedures US Head Neck Soft Tissue Jessica vAalos NP [address] [place] [address] Phone: tel: fax: [address] [phone] Referral ID Status Reason Start Date Expiration Date Visits Re quested Visits Authorized [id number] Closed 12/27/2019 01/25/2021 1 1 Reason for Visit * Diagnostic Imaging (Routine) - Closed Specialty Diagnoses / Procedures Referred By Jonas reeves Referred To Contact Diagnoses Localized swelling, mass and lump, neck Procedures US Head Neck Soft Tissue Jessica Avalos NP [address] [place] [address] Phone: tel: fax: [address] [phone] Referral ID Status Reason Start Date Expiration Date Visits Re quested Visits Authorized [id number] Closed 12/27/2019 01/25/2021 1 1 Encounter Details Date Type Department Care Team (Latest Contact Info) Description 01/25/2020 11:58 AM CDT - 01/25/2020 11:59 PM CDT Hospital Encounter [facility] [address] [place] [address] Nery Ireland MD [address] [place] [address] Jessica Avalos NP [address] [place] [address] Localized swelling, mass and lump, neck Discharge [...] neck documented in this encounter Care Teams Paint Prep Technician Relationship Specialty Start Date End Date Jessica Avalos NP [address] [place] [address] PCP - General 07/26/19 08/22/20 documented as of this encounter
--- OUTSIDE RECORDS SUMMARY | 2024-04-14 18:58 | XMS_ITS | Encounter Summary ---
Author Organization [facility] Address [address] [place] [address] Care Team Providers Care Trouble Operator Name Role Phone MelanieJohnJessicalambert Pinto NP Primary Care Provider Encounter Details Date Type Department Care Team (Late st Contact Info) Description 04/17/2020 7:47 AM RUG DYER HELPER Anesthesia Event [facility] Operating Room [address] [place] [address] Jose Corral MD PhD 1 [place] [address] Liset Byers CRNA 1 [place] [address] Anesthesia Record Procedure Summary Procedure Name Responsible [...] 04/17/20; Removal Time: 0917 04/17/20 0750 by Liset Byers CRNA 04/17/20 0917 by Liset Byers [...] Procedure Summary Date: 04/17/20 Room / Location: [address] OPERATING ROOM Anesthesia Start: 746 Anesthesia [...] acceptable Pt is: normothermic Nausea/Vomiting status: none DYER HELPER * Anesthesia Procedure Notes - Jose Corral [...] patient tolerated procedure well with no complications DYER HELPER * Anesthesia Procedure Notes - Liset Byers CRNA - 04/17/2020 7:55 AM CSTAssociated Order(s): Airway Airway Patient location: OR Urgency: elective Date/time: 04/17/2020 7:50 AM Indications for airway management: anesthesia Difficult airway: no Staff: Placed by: INTERNIST: Liset Byers CRNA Emergent airway documentation: Risks and benefits discussed: yes Consent obtained: yes Consent given by: patient Airway prep: Preoxygenated: yes Mask difficulty assessment: 0 - not attempted Spontaneous ventilation during airway: present Sedation level during airway: GA Final airway details: Final airway type: supraglottic airway Final supraglottic airway: unique SGA size: 3 Number of attempts: 1 DYER HELPER * Anesthesia Preprocedure Evaluation - Jose Corral [...] is Outpatient. Informed Consent: Discussed plan with INTERNIST and attending. Anesthesia plan and risks discussed with patient. Consent and Attending signature: I and/or my designee have discussed the anesthesia plan, benefits, possible alternatives, parental presence at time of induction (if indicated), and clinically relevant risks that may include dental injury, unintentional awareness, and/or other complications. The patient and/or parent/legal guardian understand, and agree to proceed. All questions answered. DYER HELPER documented in this encounter Plan of Treatment Not on file documented as of this encounter Procedures Procedure Name Priority Date/Time Associated Diagnosis Comments ANESTHESIA PERIPHERAL BLOCK Routine 04/17/2020 10:04 AM RUG DYER HELPER LA AN ELECTIVE SUPRAGLOTTIC AIRWAY Routine 04/17/2020 7:55 AM RUG DYER HELPER documented in this encounter Results * Peripheral Block (04/17/2020 10:04 AM RUG DYER HELPER) Narrative Jose Corral MD PhD - 04/17/2020 10:04 AM RUG DYER HELPER Jose Corral MD PhD ? 04/17/2020 10:05 [...] PhD ANESTHESIA ORDERABLES F inal Result * LA AN ELECTIVE SUPRAGLOTTIC AIRWAY (04/17/2020 7:55 AM RUG DYER HELPER) Narrative Liset Byers CRNA - 04/17/2020 7:55 AM RUG DYER HELPER Liset Byers CRNA ? 04/17/2020 ??7:56 AM Airway Patient location: OR Urgency: elective Date/time: 04/17/2020 7:50 AM Indications for airway management: anesthesia Difficult airway: no Staff: Placed by: INTERNIST: Liset Byers CRNA Emergent airway documentation: Risks [...] 1004, Anesthesia Intra-op Given 04/17/2020 10:04 AM RUG DYER HELPER 25 mL dexAMETHasone (DECADRON) injection solution intravenous, Administer over 2 Minutes, As needed, Starting on e 04/17/20 at 0757, Anesthesia Intra-op Given 04/17/2020 7:57 AM RUG DYER HELPER 10 mg fentaNYL (SUBLIMAZE) preservative free injection intravenous, As needed, Starting on Thu04/17/20 at 0754, Anesthesia Intra-op Given 04/17/2020 8:12 AM RUG DYER HELPER 25 mcg Given 04/17/2020 8:10 AM RUG DYER HELPER 25 mcg Given 04/17/2020 7:58 AM RUG DYER HELPER 25 mcg Lactated Ringer's (LR) infusion 30 mL/hr, intravenous, Continuous, Starting on e 04/17/20 at 0715, Pre-Op New Bag 04/17/2020 9:01 AM RUG DYER HELPER Rate/Dose Verify 04/17/2020 7:47 AM RUG DYER HELPER New Bag 04/17/2020 7:04 AM RUG DYER HELPER 30 mL/hr 30 mL/hr lidocaine (XYLOCAINE) 20 mg/mL (2 %) preservative free injection As needed, Starting on Thu04/17/20 at 0750, Anesthesia Intra-op Given 04/17/2020 7:50 AM RUG DYER HELPER 100 mg midazolam (VERSED) 1 mg/mL preservative free injection intravenous, Administer over 2 Minutes, As needed, Starting on Thu04/17/20 at 0747, Anesthesia Intra-op Given 04/17/2020 7:47 AM RUG DYER HELPER 2 mg ondansetron (ZOFRAN) injection intravenous, Administer over 2 Minutes, As needed, Starting on Thu04/17/20 at 0852, Anesthesia Intra-op Given 04/17/2020 8:52 AM RUG DYER HELPER 4 mg propofoL (DIPRIVAN) IV intravenous, As needed, Starting on Thu04/17/20 at 0750, Anesthesia Intra-op Given 04/17/2020 7:50 AM RUG DYER HELPER 200 mg documented in this encounter Care Teams Trouble Operator Relationship Specialty Start Date End Date Jessica Navarro NP [address] [place] [address] PCP - General 07/26/19 08/22/20 documented as of this encounter
--- OUTSIDE RECORDS SUMMARY | 2024-04-14 18:58 | XMS_ITS | Encounter Summary ---
Author Organization [facility] Address [address] [place] [address] Care Team Providers Care Capping Machine Operator Name Role Phone Jessica Navarro NP Primary Care Provider [phone] Reason for Referral * Diagnostic Imaging (Routine) - Closed Specialty Diagnoses / Procedures Referred By Jonas reeves Referred To Contact Diagnoses Rupture of left Achilles tendon, subsequent encounter Procedures MRI ANKLE LEFT WO CONTRAST Kishan Broussard MD [address] [place] [address] Phone: tel: fax: [facility] [address] [facility] [place] [address] [place] [address] Phone: tel: fax: Referral ID Status Reason Start Date Expiration Date Visits Re quested Visits Authorized [id number] Closed 03/19/2020 09/16/2020 1 1 RETE PIPE MACHINE OPERATOR Reason for Visit * Reason Comments Pain Follow-up Pain Follow-up Encounter Details Date Type Department Care Team (Late st Contact Info) Description 03/19/2020 10:30 AM CONCRETE PIPE MACHINE OPERATOR Office Visit [facility] [address] [place] [address] Kishan Broussard MD [address] [place] [address] Tendinitis of ankle (Primary Dx); Nontraumatic rupture [...] 90.3 kg (199 lb) 03/19/2020 10:42 AM CONCRETE PIPE MACHINE OPERATOR Height 160 cm (5' 3 ) 03/19/2020 10:42 AM CONCRETE PIPE MACHINE OPERATOR Body Mass Index 35.25 03/19/2020 10:42 AM CONCRETE PIPE MACHINE OPERATOR documented in this encounter Progress Notes [...] Plan-left ankle MRI scan. Return following investigation. RETE PIPE MACHINE OPERATOR documented in this encounter Plan [...] encounter documented in this encounter Care Teams Capping Machine Operator Relationship Specialty Start Date End Date Navarro, Jessica Pinto NP [address] [place] [address] PCP - General 07/26/19 08/22/20 documented as of this encounter
--- OUTSIDE RECORDS SUMMARY | 2024-04-14 18:58 | XMS_ITS | Encounter Summary ---
Author Organization [facility] Address [address] [facility] [address] [facility] [address] [place] [address] Care Team Providers Care Rn Bsn Name Role Phone Jessica Navarro NP Primary Care Provider Encounter Details Date Type Department Care Team (Late st Contact Info) Description 04/01/2020 Orders Only [facility] Testing Site - [facility]. [address] [address] Tracee Broussard MD [address] [address] Pre-procedure lab exam (Primary Dx) Social History Tobacco Use Types [...] as of this encounter Progress Notes * Mayo Shona - 04/01/2020 11:04 AM CST Order Information Order #: [id number] Procedure: REQUEST FOR AMBULATORY COLLECTION SITE TESTING - ADULT Order Date: 03/29/2020 Proc Category: Outpatient Referral Orderables Priority: Routine Status: ?? Class: Internal Referral Ordering User: Jonelmando Blanca [place] Provider: TRACEE BROUSSARD Provider: Tracee Broussard MD Diagnosis: ?? Department: [facility] Sched Instruct: ?? Comment: ?? Order Specific Questions Question Answer Comment Testing types: Pre-procedure ?? Date of Px/chemo/treatment/placement/transfer 04/17/2020 ?? Testing site patient will be sent to: [facility], [place] ?? Date testing requested: 04/14/2020 ?? Testing: COVID-RNA ?? Is this the first COVID-19 test for this patient? Unknown ?? Does the patient currently work in a healthcare facility with direct patient contact? Unknown ?? Is the patient a resident of a congregate care or living setting? No ?? Is the patient ? No ?? Please select the performing region: [facility] IAL PROJECTS MANAGER documented in this encounter Plan of Treatment Not on file documented as of this encounter Results * COVID-19 Coronavirus RNA Nasopharyngeal (04/14/2020 7:40 AM SPECIAL PROJECTS MANAGER) COVID-19 RNA Not Detected CALI ARGUELLES ([place]) Comment: Testing performed as a component of [...] COVID-19. Interpretive Data Testing performed by the [facility] Infectious Disease [facility]. The Novel Coronavirus Assay (COVID-19) Real Time RT-PCR assay [...] revised on 2019. First COVID-19 test? Unknown [facility] ([place]) Comment:Testing performed by : [facility], [address] [facility], [address] Employeed in healthcare? Unknown [facility] ([place]) Comment:Testing performed by : [facility], [address] [facility], [address] status? No CE [facility] ([place]) Comment:Testing performed by : [facility], [address] [facility], [address] Group care resident? No [facility] ([place]) Comment:Testing performed by : [facility], [address] [facility], [address] Hospitalized? Unknown [facility] ([place]) Comment:Testing performed by : [facility], [address] [facility], [address] Is patient in ICU? Unknown [facility] ([place]) Comment:Testing performed by : [facility], [address] [facility], [address] Symptomatic as defined by CDC? No [facility] ([place]) Comment:Testing performed by : [facility], [address] [place] [address], [address] Nasopharyngeal 04/14/2020 7: 40 AM SPECIAL PROJECTS MANAGER 04/14/2020 1:22 PM SPECIAL PROJECTS MANAGER Narrative ILDA ARGUELLES ([place]) - 04/15/2020 2:37 PM SPECIAL PROJECTS MANAGER What is the reason for testing?->Screening prior to scheduled procedure or surgery us Tracee Broussard MD LAB MICROBIOLOGY - GENE RAL ORDERABLES Final Result ILDA ARGUELLES ([place]) 1 [facility] Department [place] [address] documented in this encounter Visit Diagnoses Diagnosis Pre-procedure lab exam- Primary Pre-procedural laboratory examination Pre-procedure lab exam Pre-procedural laboratory examination documented in this encounter Care Teams Rn Bsn Relationship Specialty Start Date End Date Melanie, Jessica Pinto NP [address] [place] [address] PCP - General 07/26/19 08/22/20 documented as of this encounter
--- OUTSIDE RECORDS SUMMARY | 2024-04-14 18:58 | XMS_ITS | Encounter Summary ---
Author Organization [facility] Address [address] [place] [address] Care Team Providers Care Culinary Arts Instructor Name Role Phone Jessica Navarro Millie SUNG Primary Care Provider Reason for Visit * Reason Comments PT Initial Eval * Consultation (Routine) - Closed Specialty Diagnoses / Procedures Referred By Jonas t Referred To Contact Physical Therapy Diagnoses Nontraumatic rupture of tendons of left foot and ankle Left foot pain Kishan Broussard MD [address] [place] [address] Phone: tel: fax: [address] [address] Referral ID Status Reason Start Date Expiration Date V isits Requested Visits Authorized [id number] Closed Specialty Services Required 05/24/2020 06/23/2021 9 9 Encounter Details Date Type Department Care Team (Late st Contact Info) Description 06/12/2020 3:30 PM DEATH SURVEYS CODER Therapy [facility] Physical Therapy [address] [place] [id number] Kishan Broussard MD [address] [place] [address] Jaye Zayas, PT Nontraumatic rupture of tendons [...] Kishan Broussard MD [address] [place] [address] @[email or web address]@ PT Initial Eval Subjective: History of [...] Sindhu Zayas PT , DPT , [facility] H SURVEYS CODER documented in this encounter Plan of Treatment [...] 1 documented in this encounter Care Teams Culinary Arts Instructor Relationship Specialty Start Date End Date Jessica Navarro NP [address] [place] [address] PCP - General 07/26/19 08/22/20 documented as of this encounter
--- OUTSIDE RECORDS SUMMARY | 2024-04-14 18:58 | XMS_ITS | Encounter Summary ---
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 Name Role Phone Melanie Jessica Pinto NP Primary Care Provider Reason for Visit * Reason Comments COVID-19 EVALUATION Cough Encounter Details Date Type Department Care Team (Late st Contact Info) Description 05/14/2020 2:58 PM BENCH SCIENTIST - 05/14/2020 6:50 PM BENCH SCIENTIST Emergency [facility] Emergency Department [address] [place] [address] Yadira Duque MD [address] [place] [address] COVID-19 (Primary Dx) Discharge Disposition: Discharge to [...] Comments Blood Pressure 116/62 05/14/2020 5:30 PM BENCH SCIENTIST Pulse 88 05/14/2020 5:30 PM BENCH SCIENTIST Temperature 36.1 ??C (96.9 ??F) 05/14/2020 3:01 PM CS T Respiratory Rate 20 05/14/2020 5:30 PM BENCH SCIENTIST Oxygen Saturation 97% 05/14/2020 4:19 PM BENCH SCIENTIST Inhaled Oxygen Concentration - - Weight 88.7 kg (195 lb 8 oz) 05/14/2020 3:02 PM BENCH SCIENTIST Height 160 cm (5' 2.99 ) 05/14/2020 3:02 PM BENCH SCIENTIST Body Mass Index 34.64 05/14/2020 3:02 PM BENCH SCIENTIST documented in this encounter Discharge Diagnoses Diagnosis [...] Yadira Duque MD - 05/14/2020 6:33 PM BENCH SCIENTIST Use inhaler as needed. Use cough medicine as needed. Take prednisone as directed. Follow-up with primary care doctor. You need to self isolate until 2 weeks after diagnosis. H SCIENTIST H SCIENTIST * Attachments The following attachments cannot be sent through Care Everywhere. * Coronavirus Disease 2019: Caring for Yourself and Others (Maldivian) documented in this encounter Medications at Time [...] my words and actions. Yadira Duque MD 05/14/20 H SCIENTIST * Gita Wang, SHERIDAN - 05/14/2020 3:00 PM CST Known covid + patient presents via EMS for evaluation of a cough. Patient received 125mg solu-medrol and an albuterol treatment en route. H SCIENTIST * Kandy Leach RN - 05/14/2020 2:58 PM CST Bed: ED11 Expected date: Expected time: Means of arrival: Comments: [email or web address] Kandy Leach RN 05/14/20 8164 H SCIENTIST documented in this encounter Plan of Treatment Not on file documented as of this encounter Procedures Procedure Name Priority Date/Time Associated Diagnosis Comments SEPSIS LACTATE WITH REFLEX STAT 05/14/2020 4:11 PM BENCH SCIENTIST EGFR STAT 05/14/2020 4:11 PM BENCH SCIENTIST DIFFERENTIAL AUTO STAT 05/14/2020 4:1 1 PM BENCH SCIENTIST PRO B-TYPE NATRIURETIC PEPTIDE STAT 05/14/2020 4:11 PM BENCH SCIENTIST CBC WITH AUTO DIFFERENTIAL STAT 05/14/2020 4:11 PM BENCH SCIENTIST APTT STAT 05/14/2020 4:11 PM BENCH SCIENTIST PROTIME-INR STAT 05/14/2020 4:11 PM BENCH SCIENTIST D-DIMER, QUANTITATIVE STAT 05/14/2020 4:11 PM BENCH SCIENTIST HCG, BLOOD, QUANTITATIVE STAT 05/14/2020 4:11 PM BENCH SCIENTIST TROPONIN T STAT 05/14/2020 4:11 PM BENCH SCIENTIST MAGNESIUM Routine 05/14/2020 4:11 PM BENCH SCIENTIST COMPREHENSIVE METABOLIC PANEL STAT 05/14/2020 4:11 PM BENCH SCIENTIST XR CHEST 1 VIEW ED 05/14/2020 3:21 PM BENCH SCIENTIST ECG 12-LEAD STAT 05/14/2020 3:04 PM BENCH SCIENTIST documented in this encounter Results * eGFR (05/14/2020 4:11 PM BENCH SCIENTIST) eGFR 104 mL/min/1.7 3 m2 [facility] [...] 2020 Blood specimen (specimen) 05/14/2020 4:11 PM BENCH SCIENTIST 05/14/2020 4:20 PM BENCH SCIENTIST Yadira Duque MD LAB BLOOD ORDERABLES Final R esult [facility] ([place]) 1 [facility] Department [place] [address] * Differential, auto (05/14/2020 4:11 PM BENCH SCIENTIST) Pathologist [facility] Neutrophil abs 3.9 1.7 - 6.5 K/cumm [...] 2017. Blood specimen (specimen) 05/14/2020 4:11 PM BENCH SCIENTIST 05/14/2020 4:22 PM BENCH SCIENTIST us Yadira Duque MD LAB BLOOD ORDERABLES Final R esult [facility] ([place]) [address] Department [place] [address] * Sepsis Lactate w/ Reflex (05/14/2020 4:11 PM BENCH SCIENTIST) Pathologist [facility] Sepsis Lactate 1.9 0.7 - 2.0 mmol/L [facility] ([place]) Blood specimen (specimen) 05/14/2020 4:11 PM BENCH SCIENTIST 05/14/2020 4:18 PM BENCH SCIENTIST Yadira Duque MD LAB BLOOD ORDERABLES Final R esult [facility] ([place]) 1 [facility] [place] [address] * Troponin T (05/14/2020 4:11 PM BENCH SCIENTIST) [facility] Troponin T <0.01 0.00 - 0.01 ng/mL [facility] ([place]) Comment: Interpretive Data Reference ranges for children <18 years of age have not been established. - > or = 18 years: Serial determinations are recommended for the diagnosis of myocardial infarction. ??Temporal rise and fall are consistent with myocardial infarction when at least one value is above the 99th percentile upper reference limit for troponin assay. ??Journal of the [employer] College [employer] 2012;60:1581-98. Current Interpretive Data Last Revised Date: 2017. Blood specimen (specimen) 05/14/2020 4:11 PM BENCH SCIENTIST 05/14/2020 4:20 PM BENCH SCIENTIST Yadira Duque MD LAB BLOOD ORDERABLES Final R esult [facility] ([place]) 1 [facility] [place] [address] * Protime-INR (05/14/2020 4:11 PM BENCH SCIENTIST) Pathologist [facility] PT 11.9 9.5 - 13.0 sec IL[facility] [...] 2019. Blood specimen (specimen) 05/14/2020 4:11 PM BENCH SCIENTIST 05/14/2020 4:20 PM BENCH SCIENTIST us Yadira Duque MD LAB BLOOD ORDERABLES Final R esult [facility] ([place]) 1 [facility] Department of Laboratories [place], [place] [id number] * Pro B-type natriuretic peptide (05/14/2020 4:11 PM BENCH SCIENTIST) NT-proBNP 10 <=300 pg/mL [facility] ([place]) [...] 2017. Blood specimen (specimen) 05/14/2020 4:11 PM BENCH SCIENTIST 05/14/2020 4:20 PM BENCH SCIENTIST Yadira Duque MD LAB BLOOD ORDERABLES Final R esult [facility] ([place]) 1 [facility] [address] * Magnesium (05/14/2020 4:11 PM BENCH SCIENTIST) Pathologist [facility] Magnesium 2.0 1.4 - 2.5 mg/dL [facility] ([place]) Blood specimen (specimen) 05/14/2020 4:11 PM BENCH SCIENTIST 05/14/2020 4:20 PM BENCH SCIENTIST Yadira Duque MD LAB BLOOD ORDERABLES Final R esult [facility] ([place]) 1 [facility] [address] * D-dimer, quantitative (05/14/2020 4:11 PM BENCH SCIENTIST) D-Dimer 381 <=499 ng/mL FEU [facility] ([place]) Comment: Interpretive data FDA approved the D-dimer, [...] 2019. Blood specimen (specimen) 05/14/2020 4:11 PM BENCH SCIENTIST 05/14/2020 4:20 PM BENCH SCIENTIST us Yadira Duque MD LAB BLOOD ORDERABLES Final R esult [facility] ([place]) 1 [facility] Department [place] [address] * (ABNORMAL) Comprehensive metabolic panel (05/14/2020 4:11 PM BENCH SCIENTIST) Sodium 142 135 - 145 mmol/L [facility] ([place]) Potassium, pl 3.3 3.3 - 4.9 mmol/L [facility] ([place] Chloride 103 97 - 110 mmol/L [facility] ([place]) CO2 26 22 - 32 mmol/L [facility] ([place]) Anion gap 13 2 - 15 mmol/L [facility] ([place] BUN 8 8 - 25 mg/dL [facility] ([place] Creatinine 0.78 0.60 - 1.10 mg/dL [facility] ([place]) Glucose 120 70 - 199 mg/dL [facility] ([place]) Comment: Interpretive Data Fasting glucose [...] (LAMINE) Blood specimen (specimen) 05/14/2020 4:11 PM BENCH SCIENTIST 05/14/2020 4:20 PM BENCH SCIENTIST Yadira Duque MD LAB BLOOD ORDERABLES Final R esult [facility] 1 [facility] Department [place] [address] * CBC with auto differential (05/14/2020 4:11 PM BENCH SCIENTIST) WBC 6.7 3.8 - 9.9 K/cumm [facility] ([place]) Hgb 15.2 11.9 - 15.5 g/dL [facility] ([place]) Hct 44.3 35.6 - 45.5 % [facility] [...] 11.7 11.1 - 14.9 % [facility] ([place]) RDW SD 37.8 35.7 - 48.1 fL [facility] ([place]) NRBC abs 0.00 0.00 - 0.01 K/cumm [facility] ([place]) Blood specimen (specimen) 05/14/2020 4:11 PM BENCH SCIENTIST 05/14/2020 4:22 PM BENCH SCIENTIST Yadira Duque MD LAB BLOOD ORDERABLES Final R esult Performing Organization Address [facility] Co de Phone Number [facility] ([place]) 1 [facility] [place] [address] * aPTT (05/14/2020 4:11 PM BENCH SCIENTIST) aPTT 32 25 - 37 sec [facility] ([place]) Comment: Interpretive data Heparin therapeutic range: 60-94 seconds Range based on correlation with therapeutic heparin activity range of 0.3-0.7 units/ml. Current interpretive data was last revised on 2019. Blood specimen (specimen) 05/14/2020 4:11 PM BENCH SCIENTIST 05/14/2020 4:20 PM BENCH SCIENTIST Yadira Duque MD LAB BLOOD ORDERABLES Final R esult Performing Organization Address [facility] Co de Phone Number [facility] ([place]) 1 [facility] [place] [address] * hCG, blood, quantitative (05/14/2020 4:11 PM BENCH SCIENTIST) hCG, quant <5.0 0.0 - 5.0 IUnits/L [facility] ([place]) Comment: Interpretive Data Non- Female premenopausal: < or = 5.0 IUnits/L Men: < 5.0 IUnits/L Weeks of Gestation ? Reference Interval ?? 3 to 6 ? 5.8-31,795 IUnits/L ?? 7 to 10 ? 3,697-186,977 IUnits/L ??12 to 15 ?27,832- 70,791 IUnits/L ??16 to 18 ? 9,040- 58,179 IUnits/L Current Interpretive Data was last revised on 2017. Blood specimen (specimen) 05/14/2020 4:11 PM BENCH SCIENTIST 05/14/2020 4:20 PM BENCH SCIENTIST us Yadira Duque MD LAB BLOOD ORDERABLES Final R esult [facility] ([place]) 1 [facility] Department [place] [address] * XR Chest 1 Vw Portable (05/14/2020 3:21 PM BENCH SCIENTIST) Anatomical Region Laterality Modality Body, Chest N/A Computed Radiogr aphy 05/14/2020 3:23 PM BENCH SCIENTIST Impressions 05/14/2020 3:24 PM BENCH SCIENTIST 1. ??Minimal patchy left basilar airspace opacities, which is likely assessment atelectasis. ??No definite evidence of focal consolidation. Electronically signed by: Charly Mendez D.O. Narrative 05/14/2020 3:24 PM BENCH SCIENTIST EXAMINATION: XR CHEST 1 VIEW ORDERING HEALTHCARE [...] * ECG 12 lead (05/14/2020 3:04 PM BENCH SCIENTIST) 05/14/2020 3:04 PM BENCH SCIENTIST Narrative [facility] - 05/15/2020 10:27 AM BENCH SCIENTIST Vent Rate: 71 bpm RR Interval: 840 msec AK Interval: 169 msec QRS Duration: 88 msec QT Interval: 366 msec QTC Interval: 388 msec P-R-T [place]: 19 - 3 - 24 degrees SINUS RHYTHM NORMAL ECG Electronically Signed By: Giovanny Olguin MD Yadira Duque MD ECG ORDERABLES Final Result [facility] documented in this encounter Visit Diagnoses Diagnosis COVID-19- Primary documented in this encounter Administered Medications Inactive Administered Medications - up to 3 most recent administrations Medication Order MAR Action Action Date Dose Rate Site albuterol HFA (PROVENTIL HFA,VENTOLIN HFA,PROAIR HFA) 90 mcg/actuation inhaler 4 puff 4 puff, inhalation, Once (respite care provider), On Thu05/14/20 at 1551, For 1 dose Given 05/14/2020 4:00 PM BENCH SCIENTIST 4 puffs benzonatate (TESSALON) capsule 100 mg 100 mg, oral, Once, On Thu05/14/20 at 1552, For 1 dose, Do not crush, chew, cut, dissolve, open or otherwise manipulate tablet/capsule., Indications: CoughIndications:Cough Given 05/14/2020 4:08 PM BENCH SCIENTIST 100 mg ketorolac (TORADOL) injection 30 mg 30 mg, intravenous, Once, On Thu05/14/20 at 1552, For 1 dose, For Adult IV push, administer over 15 seconds Given 05/14/2020 4:08 PM BENCH SCIENTIST 30 mg sodium chloride 0.9% bolus 1,000 mL 1,000 mL, intravenous, Once, On Thu05/14/20 at 1552, For 1 dose New Bag 05/14/2020 4:08 PM BENCH SCIENTIST 1,000 mL documented in this encounter Discontinued [...] Recently Administered Medications Times are shown in BENCH SCIENTIST. 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
== END 2024-04-10 09:37 | disposition home or self-care (01) ==
PROVIDERS: Emergency Provider Nurse Practitioner Family; PCP Nurse Practitioner Family
DX: J02.9 Acute pharyngitis, unspecified (principal); H66.91 Otitis media, unspecified, right ear; F17.210 Nicotine dependence, cigarettes, uncomplicated; E11.9 Type 2 diabetes mellitus without complications; Z79.4 Long term (current) use of insulin
CPT/HCPCS: 87081; 87880; 99213; G0463

== ENCOUNTER 2024-10-18 18:09 | Emergency (ER) | payer OTHER, SELFPAY ==
[2024-10-18 18:14] VITALS: BP 144/103; PULSE 89; RESP 20; TEMP 37; O2SAT 100
--- NOTE | 2024-10-18 18:34 | ED.ABDPAIN ---
HPI - Abdominal Pain General Chief Complaint: Abdominal Pain Stated Complaint: abdomen pain Source: patient Mode of arrival: ambulatory Limitations: no limitations History of Present Illness HPI narrative: Patient is a 29-year-old female presents to the clinic with abdominal pain to the right side since this morning. She states that she feels like there is a knot to the right side of her umbilical. She is rating her pain a 10/10 with any palpation and a 6/10 at rest. She has not been taking anything over the counter. Denies any shortness of breath, chest pain, fevers, body aches, chills, nausea, diarrhea, or vomiting. Related Data Home Medications ?Medication ?Instructions ?Recorded ?Confirmed ?Last Taken ?Type insulin glargine 100 unit/mL 20 unit subcut DAILY 01/30/23 01/30/23 Unknown History subcutaneous solution (Lantus U-100 Insulin) insulin lispro 100 unit/mL 8 unit subcut TID 01/30/23 01/30/23 Unknown History subcutaneous solution (Humalog U-100 Insulin) mirtazapine 15 mg tablet 15 mg PO DAILY 01/30/23 01/30/23 Unknown History hydroxyzine pamoate 25 mg capsule mg 04/10/24 Unknown History albuterol 90 mcg-budesonide 80 inh inhalation 10/18/24 Unknown History mcg/actuation HFA aerosol inhaler (Airsupra) atorvastatin 20 mg tablet mg 10/18/24 Unknown History hydroxyzine HCl 25 mg tablet mg 10/18/24 Unknown History lurasidone 60 mg tablet mg 10/18/24 Unknown History pregabalin 75 mg capsule mg 10/18/24 Unknown History venlafaxine 75 mg capsule,extended mg PO 10/18/24 Unknown History release 24 hr Allergies Allergy/AdvReac Type Severity Reaction Status Date / Time chiu Allergy Unknown Unknown Verified 10/18/24 18:23 Review of Systems Review of Systems: CONSTITUTIONAL: Denies body aches, fever, chills, or sweats. EYES: Denies visual changes, redness, or discharge. ENT: Denies rhinorrhea, congestion, sore throat, or otalgia. CARDIOVASCULAR: Denies chest pain, palpitations, or edema. RESPIRATORY: Denies cough or dyspnea. GASTROINTESTINAL: Reports right sided abdominal pain. Denies nausea, vomiting, or diarrhea, CVA Tenderness. GENITOURINARY: Denies dysuria or hematuria. SKIN: Denies rash, itching, or wounds. MUSCULOSKELETAL: Denies back pain, joint pain, or myalgia. NEUROLOGIC: Denies headache, numbness, tingling, or weakness. PSYCH: Denies depression or anxiety. All systems reviewed & are unremarkable except as noted in HPI and below PMFSH Past Medical History Medical History PTSD (post-traumatic stress disorder) Anxiety Depression Diabetes Social History Social History Smoking packs per day: 1.5 Smoking cigarettes per day: 30.0 Substance use type: does not use Comments At time of signature, I have reviewed and agree with nursing past medical, surgical, social and family history unless otherwise noted. Please see nursing chart for further information. There is no relevant family history pertinent to the presenting complaint. Exam Narrative: GENERAL: Well-appearing, well-nourished, and in no acute distress. HEAD: Normocephalic, atraumatic. EYES: PERRLA, conjunctivae clear, and EOMI. ENT: Mucous membranes moist. NECK: Supple. No lymphadenopathy CHEST: Speaks in full sentences. No respiratory distress. HEART: Regular rate and rhythm. ABDOMEN: Soft, flat, nondistended. Guarding and pain noted to right side of umbilical with palpation. No rebound tenderness or rigid. No pulsatile masses. Bowel sounds x4. Negative Keller?s sign. No Supra pubic tenderness or distension. Good femoral pulses bilaterally. No scars or surface trauma. Lump noted to right side of umbilical. SKIN: Warm, dry, no rash. NEURO: Alert and oriented x3. PSYCH: Normal mood and affect Course Course Level of Care: Express Care Visit Vital Signs Vital signs: Vital Signs Temperature 98.6 F 10/18/24 18:14 Pulse Rate 89 10/18/24 18:14 Respiratory Rate 20 10/18/24 18:14 Blood Pressure 144/103 H 10/18/24 18:14 Pulse Oximetry 100 10/18/24 18:14 Oxygen Delivery Room Air 10/18/24 18:14 Temperature 98.6 F 10/18/24 18:14 Pulse Rate 89 10/18/24 18:14 Respiratory Rate 20 10/18/24 18:14 Blood Pressure 144/103 H 10/18/24 18:14 Pulse Oximetry 100 10/18/24 18:14 Oxygen Delivery Room Air 10/18/24 18:14 reviewed. Transfer Transfered to: [facility] Accepting physician: Dr. Mcdonnell Transfer comments: Pt is agreeable to transfer. Requests transfer to [facility] via private vehicle. Risks of transportation reviewed with pt including injury, worsening of condition and . Patient will be driving. Report called to [facility], spoke with Leighann Gaytan RN. Pt is in stable condition at time of transfer. Advised to remain NPO and go directly to the hospital. MDM - Abdominal Pain MDM Narrative Medical decision making narrative: Discussed physical exam findings. Discussed in depth the importance for the need for her to transfer to ER. Patient agreeable with plan. Patient chose [facility]. Differential Diagnosis Differential diagnosis: Likely abdominal pain, acute appendicitis, constipation, gastroenteritis, small bowel obstruction and other (hernia, appendicitis. ) Critical Care Time Critical Care Time Critical Care Time: No Discharge Plan Discharge Clinical Impression: Abdominal pain Qualifiers: Abdominal location: right lower quadrant Qualified Code(s): R10.31 - Right lower quadrant pain Patient Disposition: Acute Care Hospital Condition: Stable Patient Language: Beninese Prescriptions: No Action insulin glargine [Lantus U-100 Insulin] 100 unit/mL Solution 20 unit SUBCUT DAILY mirtazapine 15 mg Tablet 15 mg PO DAILY insulin lispro [Humalog U-100 Insulin] 100 unit/mL Solution 8 unit SUBCUT TID venlafaxine 75 mg capsule,extended release 24hr PO atorvastatin 20 mg tablet hydroxyzine HCl 25 mg tablet pregabalin 75 mg capsule lurasidone 60 mg tablet Airsupra 90-80 mcg/actuation HFA aerosol inhaler INHALATION loratadine [Claritin] 10 mg tablet 10 mg PO DAILY 14 Days Qty: 14 0RF hydroxyzine pamoate 25 mg capsule metformin 500 mg tablet 500 mg PO BID Qty: 60 0RF Follow-up/Referrals: Melanie,Jessica Steward APN [Primary Care Provider] -
== END 2024-10-18 18:35 | disposition short-term general hospital (02) ==
PROVIDERS: PCP Nurse Practitioner Family
DX: R10.31 Right lower quadrant pain (principal); E11.9 Type 2 diabetes mellitus without complications; Z79.4 Long term (current) use of insulin; F17.210 Nicotine dependence, cigarettes, uncomplicated
CPT/HCPCS: 99212; G0463